=== PATIENT | female | born 1960 | race Caucasian/White ===

== ENCOUNTER 2017-04-07 16:11 | Outpatient (RCR) | payer MEDICAID, SELFPAY ==
[2017-04-07 17:25] LABS: International Normalized Ratio 2.7
== END 2017-04-07 16:30 | disposition home or self-care (01) ==
LOC: LAB 16:11
PROVIDERS: Family Provider Family Medicine; PCP Family Medicine; Visit Provider Family Medicine
DX: I82.90 Acute embolism and thrombosis of unspecified vein (principal); E78.00 Pure hypercholesterolemia, unspecified; Z79.899 Other long term (current) drug therapy
CPT/HCPCS: 36415; 85610

== ENCOUNTER 2017-05-26 09:01 | Outpatient (RCR) | payer MEDICAID, SELFPAY ==
[2017-05-26 09:44] LABS: Prothrombin Time (Protime)PT. 33.4 SECONDS (11.7-14.9)
[2017-05-26 09:57] LABS: International Normalized Ratio 3.5
[2017-05-31 03:06] LABS: Alternaria alternata <0.10 kU/L (Class 0); Aspergillus fumigatus <0.10 kU/L (Class 0); Bahia Grass <0.10 kU/L (Class 0); Bermuda Grass <0.10 kU/L (Class 0); Bluegrass, Kentucky <0.10 kU/L (Class 0); Cat Hair/Dander, Standard <0.10 kU/L (Class 0); Cedar, Mountain <0.10 kU/L (Class 0); Cladosporium herbarum <0.10 kU/L (Class 0); Cockroach, American <0.10 kU/L (Class 0); D farinae Mite 0.15 kU/L (Class 0/I); D pteronyssinus 0.53 kU/L (Class I); Dog Epithelia <0.10 kU/L (Class 0); Elm, American White <0.10 kU/L (Class 0); Hazelnut Tree <0.10 kU/L (Class 0); Hickory, White <0.10 kU/L (Class 0); Johnson Grass <0.10 kU/L (Class 0); Maple/Box Elder <0.10 kU/L (Class 0); Mucor racemosus <0.10 kU/L (Class 0); Mugwort <0.10 kU/L (Class 0); Mulberry, White <0.10 kU/L (Class 0); Oak, White <0.10 kU/L (Class 0); Penicillium chrysogen <0.10 kU/L (Class 0); Pigweed, Rough <0.10 kU/L (Class 0); Plantain, English <0.10 kU/L (Class 0); Ragweed, Short/Common <0.10 kU/L (Class 0); Sheep Sorrel(Dock) <0.10 kU/L (Class 0); Stemphylium herbarum <0.10 kU/L (Class 0); Sweet Gum <0.10 kU/L (Class 0); Sycamore, American <0.10 kU/L (Class 0)
[2017-05-31 08:51] LABS: Immunoglobulin E 53 IU/mL (0-100)
[2017-05-31 08:52] LABS: Nettle <0.10 kU/L (Class 0)
== END 2017-05-26 15:00 | disposition home or self-care (01) ==
LOC: LAB 09:01
PROVIDERS: Family Provider Family Medicine; PCP Family Medicine; Visit Provider Family Medicine
DX: I82.90 Acute embolism and thrombosis of unspecified vein (principal); J30.9 Allergic rhinitis, unspecified
CPT/HCPCS: 36415; 82785; 85610; 86003

== ENCOUNTER → 2017-06-18 07:55 | Outpatient (CLI) | payer MEDICAID, SELFPAY ==
--- NOTE | 2017-06-18 13:27 | PFT ---
INTRODUCTION: The patient is a 57-year-old female currently under the care of myself the presents for pulmonary function testing secondary to a diagnosis of shortness of breath. Respiratory therapy reports good patient effort reports no other concerns. Bronchodilators were used during testing. INTERPRETATION: Forced expiration spirometry demonstrates the presence of a moderately severe large airways obstructive ventilatory defect. There was no significant response to aerosolized bronchodilators, based off of strict ATS criteria. However, there was a rather brisk mid flow bronchodilator response. Spirogram from good quality and do not plateau indicating slow emptying of the lungs. Body plethysmography was performed and revealed a decreased TLC to 4.3 L, 75% of predicted, indicative of a mild restrictive ventilatory defect. The remainder of the lung volumes were symmetrically reduced. Diffusing capacity by single breath CO is moderately reduced at 53% of predicted. IMPRESSION: These pulmonary function studies demonstrate the presence of a moderately severe mixed ventilatory defect with an associated reduction in diffusing capacity. Although there was no significant bronchodilator response based upon strict ATS criteria, the patient did have a demonstrated brisk mid flow bronchodilator response.
== END ==
PROVIDERS: Family Provider Family Medicine; PCP Family Medicine; Visit Provider Internal Medicine Critical Care Medicine
DX: R06.02 Shortness of breath (principal); I82.90 Acute embolism and thrombosis of unspecified vein
CPT/HCPCS: 36415; 85610; 94060; 94726; 94729

== ENCOUNTER 2017-06-18 08:50 | Outpatient (RCR) | payer MEDICAID, SELFPAY ==
[2017-06-18 09:27] LABS: Prothrombin Time (Protime)PT. 31.1 SECONDS (11.7-14.9)
== END 2017-06-18 09:00 | disposition home or self-care (01) ==
LOC: LAB 08:50
PROVIDERS: Family Provider Family Medicine; PCP Family Medicine; Visit Provider Family Medicine
DX: I82.90 Acute embolism and thrombosis of unspecified vein (principal); J30.9 Allergic rhinitis, unspecified
CPT/HCPCS: 36415; 85610

== ENCOUNTER 2017-07-09 10:23 | Emergency (ER) | payer MEDICAID, SELFPAY ==
[2017-07-09 10:25] VITALS: BP 147/55; PULSE 72; RESP 20; TEMP 37.2; O2SAT 95; BMI 40.3
--- NOTE | 2017-07-09 10:44 | EKG12_ITS ---
Test Reason : SOB Blood Pressure : / mmHG Vent. Rate : 071 BPM Atrial Rate : 071 BPM P-R Int : 216 ms QRS Dur : 140 ms QT Int : 462 ms P-R-T Axes : 000 -40 137 degrees QTc Int : 502 ms Sinus rhythm with 1st degree A-V block Left axis deviation Left bundle branch block Abnormal ECG Confirmed by KATRINA ARREOLA, TENNILLE ([id number]), clinical editor BARBIE PERKINS ([id number]) on 07/13/2017 1:55:01 PM Referred By: Juwan Landry Confirmed By:TENNILLE HERNDON MD
--- NOTE | 2017-07-09 10:45 | RAD_ITS ---
STUDY: X-RAY CHEST REASON FOR EXAM: Female, 57 years old. Shortness of breath. Productive cough. TECHNIQUE: PA and lateral views of the chest. COMPARISON: Comparison is made with prior study dated September 11, 2016. FINDINGS: EKG electrodes are seen. There is evidence of vascular congestion and mild CHF. Blunting of both costophrenic angles posteriorly. Sternal cerclage wires are present from a prior sternotomy. The patient is status post aortic valve replacement. Cardiac megaly. Normal mediastinum and pauline. Normal visualized pulmonary arteries. There is atherosclerotic calcification of the aortic arch with tortuosity. There are diffuse degenerative changes of the visualized thoracic spine. Normal visualized ribs, clavicles, and shoulders. There is no demonstrated abnormality of the visualized soft tissue structures of the upper abdomen. RAD/Chest PA and Lateral IMPRESSION: Status post aortic valve replacement. CHF. Electronically Signed: Luis Boogie MD at 12:08 EDT Tel [phone], Service support ,
[2017-07-09] MEDS: Albuterol 2.5 MG/3 ML VIAL.NEB. INHALATION (11:02)
[2017-07-09 11:03] VITALS: PULSE 76; RESP 20; O2SAT 98
[2017-07-09 11:13] LABS: Absolute Lymphocyte Count 1.13 X10^3/ul (0.83-4.51); Absolute Neutrophil Count 6.7 X10^3/uL (2.0-7.7); Basophil# 0.02 X10^3/uL; Basophil% 0.2 % (0-1); Eosinophil# 0.11 X10^3/uL; Eosinophils% 1.3 % (0-5); Hematocrit 37.2 % (37-47); Hemoglobin 11.8 g/dl (12.0-15.0); Lymphocyte # 1.13 X10^3/ul (4.0); Mean Corp Hgb Conc 31.7 g/gl (32-36); Mean Corpuscular Hgb 29.7 pg (27.0-32.0); Mean Corpuscular Volume 93.7 fL (81-99); Mean Platelet Vol. 9.3 fl (6.2-12.0); Monocyte# 0.75 X10^3/uL; Monocyte% 8.6 % (0-10); Neutrophil # 6.65 X10^3/uL (2.7-7.7); Neutrophil % 76.7 % (47-70); POSITIVE COUNT NO; POSITIVE DIFFERENTIAL NO; POSITIVE MORPHOLOGY NO; Platelet Count 181 K/mm3 (150-450); RBC Distribution Width CV 14.7 % (11.6-14.6); RBC Distribution Width SD 50.2 fl (35.1-43.9); Red Blood Count 3.97 M/mm3 (4.2-5.4); White Blood Count 8.7 K/mm3 (4.4-11.0)
[2017-07-09 11:19] LABS: Prothrombin Time (Protime)PT. 36.4 SECONDS (11.7-14.9)
[2017-07-09 11:20] LABS: International Normalized Ratio 3.6
--- NOTE | 2017-07-09 11:21 | ED.RN ---
DR BARCLAY NOTIFIED OF INR RESULTS
[2017-07-09 11:27] LABS: Anion Gap 7 (5-15); BUN 16 mg/dL (7-18); BUN/Creat Ratio 22.2 RATIO (10-20); Calcium,Total 8.1 mg/dL (8.5-10.1); Chloride 106 mmol/L (98-107); Creatinine, Serum 0.72 mg/dL (0.55-1.02); EST Glomerular Filtration Rate 89 mL/min (>60); Est Glom Filt Rate - Afr Amer 108 mL/min (>60); Estimated Creatinine Clearance 89.06 ml/min; Glucose 111 mg/dL (74-106); Sodium Level 141 mmol/L (136-145)
[2017-07-09 11:36] LABS: BNP,B-Type NATRIURETIC PEPTIDE 373.9 pg/mL (0-100)
[2017-07-09 12:34] VITALS: BP 138/58; PULSE 73; RESP 24; O2SAT 94
--- NOTE | 2017-07-09 13:15 | ED.VISSUMM ---
- ER Visit Summary Date of Service: 07/09/17 Chief Complaint: [] Shortness of breath History of Present Illness: The patient is a 57 F [] complaining of mild shortness of breath worsening over the last 3 weeks with an exacerbation over the last 24-48 hours. She reports he recently finished the 8 day course of antibiotics 5 days ago. She reports she is using her inhaler every 4 hours at home without significant relief. Reports subjective fevers. Reports nonproductive cough. No other complaints at this time. Physical Examination: [] Afebrile, vital signs stable. 57-year-old female no acute distress. Cardiovascular exam is regular rate and rhythm. Lungs are clear to auscultation without wheezing or rhonchi or rales. Abdomen is obese, soft, nontender. There is no significant lower extremity edema. Remainder of exam is unremarkable. Test Results: [] CBC, BMP within normal limits. INR is 3.6 which is normal for the patient with a mechanical valve. Opponent is negative at less than 0.02. BNP is 373. Chest x-ray is read as mild CHF. EKG shows normal sinus rhythm rate of 71 with a first-degree heart block and left bundle branch block unchanged from previous EKG. Emergency Department Course and Treatment: [] Patient was given albuterol aerosol upon arrival. On serial exam she reportedly felt improvement. She was given a dose of prednisone after her diagnostic and laboratory workup was completed. She appears to be more of a bronchitis picture than a CHF exacerbation. She was encouraged to continue using her albuterol inhaler at home. She was given a short-term prescription for prednisone for 5 days. She was encouraged to follow-up with her primary care physician and return if symptoms worsen. Treatment Plan: [] See above. Disposition: [] Discharge, stable. Impression: [] Dyspnea Bronchitis History of heart valve repair This note was generated with [employer] dictation software. It may contain incorrect words, spelling, and punctuation that were not noted in review of the chart prior to signing ED Disposition - Plan for ED Patient: Chief Complaint: Shortness of Breath Referrals: Juwan Landry DO [Primary Care Provider] -
--- NOTE | 2017-07-09 13:20 | ED.DEP ---
ED Disposition - Plan for ED Patient: Disposition: Home or Assisted Living Chief Complaint: Shortness of Breath Instructions: ED Upper Resp Infec No Abx Tx Prescriptions: Azithromycin [Zithromax Tri-Michele] 500 mg PO DAILY #5 box Prednisone [Deltasone] 40 mg PO DAILY #5 tab Referrals: Juwan Landry DO [Primary Care Provider] -
[2017-07-09] MEDS: predniSONE 20 MG Tablet 60 MG PO (13:41)
[2017-07-09 13:42] VITALS: BP 132/59; PULSE 76; RESP 26; O2SAT 93
== END 2017-07-09 13:43 | disposition home or self-care (01) ==
PROVIDERS: Emergency Provider Emergency Medicine; Family Provider Family Medicine; PCP Family Medicine
DX: J40 Bronchitis, not specified as acute or chronic (principal); R06.00 Dyspnea, unspecified; Z95.2 Presence of prosthetic heart valve; I44.7 Left bundle-branch block, unspecified; I44.0 Atrioventricular block, first degree; E66.9 Obesity, unspecified; I11.0 Hypertensive heart disease with heart failure; I50.9 Heart failure, unspecified; E78.00 Pure hypercholesterolemia, unspecified; I35.0 Nonrheumatic aortic (valve) stenosis; Z79.82 Long term (current) use of aspirin; Z79.01 Long term (current) use of anticoagulants; Z79.899 Other long term (current) drug therapy
CPT/HCPCS: 71046; 80048; 83880; 84484; 85025; 85610; 93005; 94640; 99285; A4216

== ENCOUNTER 2017-07-22 09:03 | Outpatient (RCR) | payer MEDICAID, SELFPAY ==
[2017-07-22 09:59] LABS: International Normalized Ratio 2.3; Prothrombin Time (Protime)PT. 25.8 SECONDS (11.7-14.9)
[2017-07-28 04:09] LABS: Alternaria alternata <0.10 kU/L (Class 0); Aspergillus fumigatus <0.10 kU/L (Class 0); Bahia Grass <0.10 kU/L (Class 0); Bermuda Grass <0.10 kU/L (Class 0); Bluegrass, Kentucky <0.10 kU/L (Class 0); Cat Hair/Dander, Standard <0.10 kU/L (Class 0); Cedar, Mountain <0.10 kU/L (Class 0); Cladosporium herbarum <0.10 kU/L (Class 0); Cockroach, American <0.10 kU/L (Class 0); D farinae Mite <0.10 kU/L (Class 0); D pteronyssinus 0.41 kU/L (Class I); Dog Epithelia <0.10 kU/L (Class 0); Elm, American White <0.10 kU/L (Class 0); Hazelnut Tree <0.10 kU/L (Class 0); Hickory, White <0.10 kU/L (Class 0); Johnson Grass <0.10 kU/L (Class 0); Maple/Box Elder <0.10 kU/L (Class 0); Mucor racemosus <0.10 kU/L (Class 0); Mugwort <0.10 kU/L (Class 0); Mulberry, White <0.10 kU/L (Class 0); Oak, White <0.10 kU/L (Class 0); Penicillium chrysogen <0.10 kU/L (Class 0); Pigweed, Rough <0.10 kU/L (Class 0); Plantain, English <0.10 kU/L (Class 0); Ragweed, Short/Common <0.10 kU/L (Class 0); Sheep Sorrel(Dock) <0.10 kU/L (Class 0); Stemphylium herbarum <0.10 kU/L (Class 0); Sweet Gum <0.10 kU/L (Class 0); Sycamore, American <0.10 kU/L (Class 0)
[2017-07-28 10:55] LABS: Nettle <0.10 kU/L (Class 0)
[2017-07-29 11:13] LABS: Immunoglobulin E 51 IU/mL (0-100)
== END 2017-07-22 10:00 | disposition home or self-care (01) ==
LOC: LAB 09:03
PROVIDERS: Internal Medicine Critical Care Medicine; Family Provider Family Medicine; PCP Family Medicine; Visit Provider Family Medicine
DX: I82.90 Acute embolism and thrombosis of unspecified vein (principal); J30.9 Allergic rhinitis, unspecified
CPT/HCPCS: 36415; 82785; 85610; 86003

== ENCOUNTER 2017-08-11 09:22 | Outpatient (RCR) | payer MEDICAID, SELFPAY ==
[2017-08-11 10:43] LABS: International Normalized Ratio 1.9
== END 2017-08-11 10:00 | disposition home or self-care (01) ==
LOC: LAB 09:22
PROVIDERS: Family Provider Family Medicine; PCP Family Medicine; Visit Provider Family Medicine
DX: Z95.2 Presence of prosthetic heart valve (principal); I82.90 Acute embolism and thrombosis of unspecified vein
CPT/HCPCS: 36415; 85610

== ENCOUNTER 2017-09-16 09:44 | Outpatient (RCR) | payer MEDICAID, SELFPAY ==
[2017-09-16 10:38] LABS: AST(SGOT) 21 U/L (15-37); Alanine Aminotransfer ALT/SGPT 28 U/L (13-56); Albumin, Serum 3.5 g/dL (3.2-5.0); Alkaline Phosphatase 46 U/L (45-117); Bilirubin, Direct 0.13 mg/dL (0.00-0.30); Cholesterol 183 mg/dL (200); Globulin 3.9 g/dL (2.2-4.2); High Density Lipoprotein 31 mg/dL; Protein, Total 7.4 g/dL (6.4-8.2); Triglycerides 288 mg/dL; Very Low Density Lipoprotein 58 mg/dL (5-40)
[2017-09-16 10:54] LABS: International Normalized Ratio 2.2; Prothrombin Time (Protime)PT. 24.4 SECONDS (11.7-14.9)
== END 2017-09-16 11:00 | disposition home or self-care (01) ==
LOC: LAB 09:44
PROVIDERS: Internal Medicine Cardiovascular Disease; Family Provider Family Medicine; PCP Family Medicine; Visit Provider Family Medicine
DX: Z95.2 Presence of prosthetic heart valve (principal); I82.90 Acute embolism and thrombosis of unspecified vein
CPT/HCPCS: 36415; 80061; 80076; 85610

== ENCOUNTER 2017-10-06 12:11 | Outpatient (RCR) | payer MEDICAID, SELFPAY ==
[2017-10-06 12:43] LABS: International Normalized Ratio 2.3; Prothrombin Time (Protime)PT. 25.3 SECONDS (11.7-14.9)
== END 2017-10-06 14:00 | disposition home or self-care (01) ==
LOC: LAB 12:11
PROVIDERS: Family Provider Family Medicine; PCP Family Medicine; Visit Provider Family Medicine
DX: Z95.2 Presence of prosthetic heart valve (principal); I82.90 Acute embolism and thrombosis of unspecified vein
CPT/HCPCS: 36415; 85610

== ENCOUNTER 2017-12-29 08:28 | Outpatient (RCR) | payer MEDICAID, SELFPAY ==
[2017-12-29 08:54] LABS: International Normalized Ratio 2.3; Prothrombin Time (Protime)PT. 25.5 SECONDS (11.7-14.9)
== END 2017-12-29 10:00 | disposition home or self-care (01) ==
LOC: LAB 08:28
PROVIDERS: Family Provider Family Medicine; PCP Family Medicine; Visit Provider Family Medicine
DX: Z95.2 Presence of prosthetic heart valve (principal)
CPT/HCPCS: 36415; 85610

== ENCOUNTER 2018-01-19 08:40 | Outpatient (RCR) | payer MEDICAID, SELFPAY ==
[2018-01-19 09:39] LABS: International Normalized Ratio 1.7; Prothrombin Time (Protime)PT. 20.2 SECONDS (11.7-14.9)
== END 2018-01-19 10:00 | disposition home or self-care (01) ==
LOC: LAB 08:40
PROVIDERS: Family Provider Family Medicine; PCP Family Medicine; Referring Provider Family Medicine; Visit Provider Family Medicine
DX: Z95.2 Presence of prosthetic heart valve (principal)
CPT/HCPCS: 36415; 85610

== ENCOUNTER → 2018-02-15 12:53 | Outpatient (CLI) | payer MEDICAID, SELFPAY ==
--- NOTE | 2018-02-15 12:54 | ECHOCS_ITS ---
Reason For Study: Fatigue, MVR, AVR, Hx endocarditis Procedure This was a 2D Doppler, Color Flow transthoracic echocardiogram. The study was technically difficult. Due to body habitus. Contrast injection was performed. Exam performed in department. Left Ventricle Normal LV size. Moderate concentric left ventricular hypertrophy. The estimated ejection fraction is 65 %. Left ventricular systolic function is normal. No regional wall motion abnormalities noted. Right Ventricle Normal RV size. Normal systolic function. Atria The left atrium is mildly enlarged. Normal right atrium. Mitral Valve Stable appearing mechanical mitral valve apparatus. Tricuspid Valve Normal tricuspid valve. Mild (1+) tricuspid valve insufficiency. Pulmonary artery systolic pressure is 42 mmHg. Mild pulmonary hypertension. Aortic Valve Mild (1+) eccentric aortic valve insufficiency. Stable appearing bioprosthetic aortic valve apparatus. Pulmonic Valve Normal pulmonic valve. Great Vessels Normal aortic root. The pulmonary artery is normal size. Normal inferior vena cava. Pericardium/Pleural No pericardial effusion. MMode/2D Measurements & Calculations LVIDd: 4.9 cm IVSd: 1.6 cm Ao root diam: 3.2 cm LVIDs: 3.4 cm LVPWd: 1.5 cm RVDd: 3.0 cm FS: 31.4 % LAV(MOD-bp): 87.1 ml LA A4 area: 25.0 cm2 RA A4 area: 14.8 cm2 LAV(MOD-bp) Indexed: 36.7 ml/m2 LAV(MOD-sp2): 86.3 ml LAV(MOD-sp4): 84.7 ml Doppler Measurements & Calculations MV E max ej: 165.0 cm/sec Lat Peak E' Ej: 9.2 cm/sec Med Peak E' Ej: 5.5 cm/sec MV A max ej: 137.2 cm/sec E/E' lat: 17.9 E/E' med: 30.1 MV E/A: 1.2 MV V2 max: 211.3 cm/sec MV P1/2t max ej: 204.7 cm/sec Ao V2 max: 433.6 cm/sec MV max P.9 mmHg MV P1/2t: 74.0 msec Ao max P.2 mmHg MV V2 mean: 139.0 cm/sec MV dec slope: 810.7 cm/sec2 Ao V2 mean: 315.9 cm/sec MV mean P.6 mmHg MVA(P1/2t): 3.0 cm2 Ao mean P.8 mmHg MV V2 VTI: 54.9 cm Ao V2 VTI: 98.9 cm PA V2 max: 156.0 cm/sec TR max ej: 304.2 cm/sec TR max P.0 mmHg Interpretation Summary Normal LV size. Moderate concentric left ventricular hypertrophy. The estimated ejection fraction is 65 %. Left ventricular systolic function is normal. Stable appearing mechanical mitral valve apparatus. Mild (1+) tricuspid valve insufficiency. Pulmonary artery systolic pressure is 42 mmHg. Mild pulmonary hypertension. Contrast injection was performed. Ordering Physician: Fatmata Price Referring Physician: Juwan Landry Performed By: Camryn Sanchez RDCS, RVT
== END ==
PROVIDERS: Family Provider Family Medicine; PCP Family Medicine; Referring Provider Physician Assistant Medical; Visit Provider Physician Assistant Medical
DX: R53.83 Other fatigue (principal); Z95.2 Presence of prosthetic heart valve; Q23.0 Congenital stenosis of aortic valve; E78.5 Hyperlipidemia, unspecified; I10 Essential (primary) hypertension; Z86.79 Personal history of other diseases of the circulatory system
CPT/HCPCS: 93306; Q9957; A4216; C8929

== ENCOUNTER 2018-02-23 11:57 | Outpatient (RCR) | payer MEDICAID, SELFPAY ==
--- NOTE | 2018-02-08 12:55 | RAD_ITS ---
STUDY: X-RAY CHEST REASON FOR EXAM: Female, 57 years old. Shortness of breath and dyspnea TECHNIQUE: PA and lateral views of the chest. COMPARISON: 07/09/2017 FINDINGS: The lungs are clear and expanded. There is no demonstrated pleural abnormality. Sternal cerclage wires are present from a prior sternotomy. Mild cardiomegaly. Stable artificial heart valve. Normal mediastinum and pauline. Normal visualized pulmonary arteries. Normal visualized aortic arch and descending thoracic aorta. Normal visualized thoracic spine. Normal visualized ribs, clavicles, and shoulders. There is no demonstrated abnormality of the visualized soft tissue structures of the upper abdomen. RAD/Chest PA and Lateral IMPRESSION: No acute cardiopulmonary disease. Electronically Signed: Oracio Echols DO at 7:07 EST Tel , Service support ,
[2018-02-08 13:38] LABS: Absolute Lymphocyte Count 1.73 X10^3/ul (0.83-4.51); Absolute Neutrophil Count 3.2 X10^3/uL (2.0-7.7); Basophil# 0.02 X10^3/uL; Basophil% 0.4 % (0-1); Eosinophil# 0.14 X10^3/uL; Eosinophils% 2.5 % (0-5); Hematocrit 42.5 % (37-47); Lymphocyte # 1.73 X10^3/ul (4.0); Lymphocyte % 30.3 % (19-41); Mean Corp Hgb Conc 32.9 g/gl (32-36); Mean Corpuscular Hgb 31.3 pg (27.0-32.0); Mean Corpuscular Volume 94.9 fL (81-99); Monocyte% 10.5 % (0-10); Neutrophil % 55.9 % (47-70); Platelet Count 219 K/mm3 (150-450); RBC Distribution Width CV 14.1 % (11.6-14.6); RBC Distribution Width SD 47.2 fl (35.1-43.9); Red Blood Count 4.48 M/mm3 (4.2-5.4); White Blood Count 5.7 K/mm3 (4.4-11.0)
[2018-02-08 13:42] LABS: POSITIVE COUNT NO; POSITIVE DIFFERENTIAL NO; POSITIVE MORPHOLOGY NO
[2018-02-08 13:46] LABS: International Normalized Ratio 3.4; Prothrombin Time (Protime)PT. 34.2 SECONDS (11.7-14.9)
[2018-02-08 14:08] LABS: BNP,B-Type NATRIURETIC PEPTIDE 90.6 pg/mL (0-100)
[2018-02-08 14:11] LABS: AST(SGOT) 28 U/L (15-37); Alanine Aminotransfer ALT/SGPT 40 U/L (13-56); Albumin, Serum 3.6 g/dL (3.2-5.0); Alkaline Phosphatase 49 U/L (45-117); Anion Gap 9 (5-15); BUN 19 mg/dL (7-18); BUN/Creat Ratio 26.6 RATIO (10-20); Bilirubin, Direct 0.16 mg/dL (0.00-0.30); Calcium,Total 8.3 mg/dL (8.5-10.1); Chloride 98 mmol/L (98-107); Creatinine, Serum 0.71 mg/dL (0.55-1.02); EST Glomerular Filtration Rate 90 mL/min (>60); Est Glom Filt Rate - Afr Amer 109 mL/min (>60); Globulin 4.2 g/dL (2.2-4.2); Glucose 101 mg/dL (74-106); Potassium 3.7 mmol/L (3.5-5.1); Protein, Total 7.8 g/dL (6.4-8.2); Sodium Level 140 mmol/L (136-145); Thyroid Stim Hormone (TSH) 1.26 uIU/mL (0.358-3.74)
[2018-02-11 12:21] LABS: Vitamin D 1,25-Dihydroxy 41.6 pg/mL (19.9-79.3)
[2018-02-23 16:02] LABS: International Normalized Ratio 3.6
== END 2018-03-05 12:43 | disposition home or self-care (01) ==
LOC: LAB 11:57
PROVIDERS: Physician Assistant Medical; Family Provider Family Medicine; PCP Family Medicine; Referring Provider Family Medicine; Visit Provider Family Medicine
DX: Q23.0 Congenital stenosis of aortic valve (principal); R53.83 Other fatigue; E78.5 Hyperlipidemia, unspecified; I10 Essential (primary) hypertension; Z95.2 Presence of prosthetic heart valve; Z86.79 Personal history of other diseases of the circulatory system
CPT/HCPCS: 36415; 71046; 80048; 80076; 82652; 83880; 84443; 85025; 85610

== ENCOUNTER 2018-06-01 11:12 | Outpatient (RCR) | payer MEDICAID, SELFPAY ==
[2018-02-08 11:01] VITALS: BMI 43.2
[2018-06-01 12:42] LABS: International Normalized Ratio 2.3; Prothrombin Time (Protime)PT. 25.2 SECONDS (11.7-14.9)
== END 2018-06-03 11:20 | disposition home or self-care (01) ==
LOC: LAB 11:12
PROVIDERS: Family Provider Family Medicine; PCP Family Medicine; Referring Provider Family Medicine; Visit Provider Family Medicine
DX: Z95.2 Presence of prosthetic heart valve (principal)
CPT/HCPCS: 36415; 85610

== ENCOUNTER 2018-07-12 08:37 | Outpatient (RCR) | payer MEDICAID, SELFPAY ==
[2018-02-08 11:01] VITALS: BMI 43.2
[2018-07-12 09:51] LABS: Prothrombin Time (Protime)PT. 31.4 SECONDS (11.7-14.9)
== END 2018-08-04 13:49 | disposition home or self-care (01) ==
LOC: LAB 08:37
PROVIDERS: Family Provider Family Medicine; PCP Family Medicine; Referring Provider Family Medicine; Visit Provider Family Medicine
DX: Z79.01 Long term (current) use of anticoagulants (principal)
CPT/HCPCS: 36415; 85610

== ENCOUNTER 2018-08-12 09:13 | Outpatient (RCR) | payer MEDICAID, SELFPAY ==
[2018-07-20 15:18] VITALS: BMI 42.4
[2018-08-12 10:21] LABS: International Normalized Ratio 3.3; Prothrombin Time (Protime)PT. 33.8 SECONDS (11.7-14.9)
== END 2018-08-12 10:00 | disposition home or self-care (01) ==
LOC: LAB 09:13
PROVIDERS: Family Provider Family Medicine; PCP Family Medicine; Referring Provider Family Medicine; Visit Provider Family Medicine
DX: Z79.01 Long term (current) use of anticoagulants (principal)
CPT/HCPCS: 36415; 85610

== ENCOUNTER → 2018-08-12 | Outpatient (CLI) | payer MEDICAID, SELFPAY ==
[2018-07-20 15:18] VITALS: BMI 42.4
--- NOTE | 2018-08-12 09:23 | US_ITS ---
STUDY: ABDOMINAL ULTRASOUND - RIGHT UPPER QUADRANT REASON FOR VISIT: Female, 58 years old. Right upper quadrant pain TECHNIQUE: Ultrasound evaluation of the right upper quadrant was performed with real-time and static shea-scale imaging. TECHNICAL QUALITY: Adequate. COMPARISON: None. FINDINGS: Liver: The liver measures 20 cm. There is increased echogenicity consistent with fatty infiltration. The bile ducts are within normal limits. There is hepatic color flow. The direction of portal flow is hepatopetal. There is no demonstrated mass lesion. Gallbladder: Normal distended gallbladder. The gallbladder wall measures 2.3 mm. There is a negative sonographic Grande's sign. There is no pericholecystic fluid. There are no gallstones. Common Bile Duct (C.B.D.): The common bile duct measures 3.9 mm. Pancreas: Normal size of the head, body and tail of the pancreas. There is normal echogenicity of the pancreas. There is no demonstrated pancreatic mass or cyst. Right Kidney: Normal size of the right kidney. The right kidney measures 12.4 cm. Normal renal cortex. The right cortex measures 1.3 cm. There is no demonstrated renal mass or cyst. There is no right hydronephrosis. US/Abdomen Limited IMPRESSION: Hepatomegaly and hepatic steatosis. Remainder is within normal limits Electronically Signed: Oracio Echols DO at 12:01 EDT Tel , Service support ,
== END | disposition home or self-care (01) ==
LOC: US 09:22
PROVIDERS: Family Provider Family Medicine; PCP Family Medicine; Referring Provider Nurse Practitioner Primary Care; Visit Provider Nurse Practitioner Primary Care
DX: R10.11 Right upper quadrant pain (principal); Z79.01 Long term (current) use of anticoagulants
CPT/HCPCS: 36415; 76705; 85610

== ENCOUNTER 2018-09-11 07:22 | Outpatient (RCR) | payer MEDICAID, SELFPAY ==
[2018-07-20 15:18] VITALS: BMI 42.4
[2018-09-11 09:09] LABS: International Normalized Ratio 2.5; Prothrombin Time (Protime)PT. 27.4 SECONDS (11.7-14.9)
== END 2018-10-03 12:00 | disposition home or self-care (01) ==
LOC: LAB 07:22
PROVIDERS: Family Provider Family Medicine; PCP Family Medicine; Referring Provider Family Medicine; Visit Provider Family Medicine
DX: Z79.01 Long term (current) use of anticoagulants (principal)
CPT/HCPCS: 36415; 85610

== ENCOUNTER 2018-10-19 09:20 | Outpatient (RCR) | payer MEDICAID, SELFPAY ==
[2018-07-20 15:18] VITALS: BMI 42.4
[2018-10-19 10:24] LABS: International Normalized Ratio 2.7
== END 2018-11-03 17:27 | disposition home or self-care (01) ==
LOC: LAB 09:20
PROVIDERS: Family Provider Family Medicine; PCP Family Medicine; Referring Provider Family Medicine; Visit Provider Family Medicine
DX: Z79.01 Long term (current) use of anticoagulants (principal)
CPT/HCPCS: 36415; 85610

== ENCOUNTER 2019-02-01 16:11 | Outpatient (RCR) | payer MEDICAID, SELFPAY ==
[2019-02-01 12:26] VITALS: BMI 41.8
[2019-02-01 17:16] LABS: International Normalized Ratio 2.6; Prothrombin Time (Protime)PT. 27.6 SECONDS (11.7-14.9)
== END 2019-02-01 18:00 | disposition home or self-care (01) ==
LOC: LAB 16:11
PROVIDERS: Family Provider Nurse Practitioner Family; PCP Nurse Practitioner Family; Referring Provider Internal Medicine Cardiovascular Disease; Visit Provider Internal Medicine Cardiovascular Disease
DX: Z79.01 Long term (current) use of anticoagulants (principal); I35.2 Nonrheumatic aortic (valve) stenosis with insufficiency; I34.0 Nonrheumatic mitral (valve) insufficiency; Z95.2 Presence of prosthetic heart valve
CPT/HCPCS: 36415; 85610

== ENCOUNTER → 2019-02-23 07:55 | Outpatient (CLI) | payer MEDICAID, SELFPAY ==
[2019-02-01 12:26] VITALS: BMI 41.8
--- NOTE | 2019-02-23 07:57 | ECHOCS_ITS ---
Reason For Study: VALVE REPLACEMENT - EVAL Procedure This was a 2D Doppler, Color Flow transthoracic echocardiogram. The study was technically difficult. Due to body habitus. Contrast injection was performed. Exam performed in department. Left Ventricle Normal LV size. Moderate concentric left ventricular hypertrophy. Left ventricular systolic function is normal. The estimated ejection fraction is 65 %. Stage 2 diastolic dysfunction. No regional wall motion abnormalities noted. Atria The left atrium is mildly enlarged. Normal right atrium. Mitral Valve Peak transmitral valve gradient 16 mmHg. Stable appearing mechanical mitral valve apparatus. Tricuspid Valve Normal tricuspid valve. Aortic Valve Peak aortic valve gradient 54 mmHg. Mean aortic valve gradient 29 mmHg. Stable appearing mechanical aortic valve apparatus. Pulmonic Valve Normal pulmonic valve. Great Vessels Normal aortic root. The pulmonary artery is normal size. Normal inferior vena cava. Pericardium/Pleural No pericardial effusion. Medication 22 gauge I.V. with prn adaptor inserted into right arm. Diluted definity 3.0ml given slow IV push to enhance endocardial definition. MMode/2D Measurements & Calculations LVIDd: 5.2 cm IVSd: 1.6 cm Ao root diam: 2.6 cm LVIDs: 3.2 cm LVPWd: 1.2 cm RVDd: 3.4 cm FS: 38.1 % LAV(MOD-bp): 97.4 ml LA A4 area: 24.9 cm2 LA dimension(2D): 5.1 cm LAV(MOD-bp) Indexed: 42.1 ml/m2 LAV(MOD-sp2): 91.1 ml LAV(MOD-sp4): 91.7 ml RA A4 area: 20.9 cm2 Doppler Measurements & Calculations MV E max ej: 160.3 cm/sec Lat Peak E' Ej: 5.3 cm/sec Med Peak E' Ej: 4.6 cm/sec MV A max ej: 135.0 cm/sec E/E' lat: 30.3 E/E' med: 35.0 MV E/A: 1.2 MV V2 max: 198.7 cm/sec Ao V2 max: 367.1 cm/sec LV V1 max: 152.4 cm/sec MV max P.8 mmHg Ao max P.0 mmHg LV V1 max P.3 mmHg MV V2 mean: 136.7 cm/sec Ao V2 mean: 257.3 cm/sec LV V1 mean P.0 mmHg MV mean P.3 mmHg Ao mean P.5 mmHg LV V1 mean: 106.2 cm/sec MV V2 VTI: 49.5 cm Ao V2 VTI: 75.0 cm LV V1 VTI: 33.2 cm PA V2 max: 152.2 cm/sec Interpretation Summary Normal LV size. Left ventricular systolic function is normal. The estimated ejection fraction is 65 %. Moderate concentric left ventricular hypertrophy. Stage 2 diastolic dysfunction. Stable appearing mechanical mitral valve apparatus. Stable appearing mechanical aortic valve apparatus. Compared to the previous the fuction and valve parameters appear to be stable Contrast injection was performed. Ordering Physician: Dick Whelan Referring Physician: Pepper Davis Performed By: Camryn Sanchez RDCS, RVT
== END ==
PROVIDERS: Family Provider Nurse Practitioner Family; PCP Nurse Practitioner Family; Referring Provider Internal Medicine Cardiovascular Disease; Visit Provider Internal Medicine Cardiovascular Disease
DX: Z95.2 Presence of prosthetic heart valve (principal)
CPT/HCPCS: 93306; Q9957; C8929

== ENCOUNTER 2019-03-01 07:38 | Outpatient (RCR) | payer MEDICAID, SELFPAY ==
[2019-02-15 10:40] LABS: International Normalized Ratio 2.1; Prothrombin Time (Protime)PT. 23.6 SECONDS (11.7-14.9)
[2019-02-22 16:47] LABS: International Normalized Ratio 2.2; Prothrombin Time (Protime)PT. 24.1 SECONDS (11.7-14.9)
[2019-03-01 08:53] LABS: International Normalized Ratio 2.7; Prothrombin Time (Protime)PT. 29.1 SECONDS (11.7-14.9)
== END 2019-03-01 18:00 | disposition home or self-care (01) ==
LOC: LAB 07:38
PROVIDERS: Family Provider Nurse Practitioner Family; PCP Nurse Practitioner Family; Referring Provider Internal Medicine Cardiovascular Disease; Visit Provider Internal Medicine Cardiovascular Disease
DX: Z79.01 Long term (current) use of anticoagulants (principal); I35.2 Nonrheumatic aortic (valve) stenosis with insufficiency; I34.0 Nonrheumatic mitral (valve) insufficiency; Z95.2 Presence of prosthetic heart valve
CPT/HCPCS: 36415; 85610

== ENCOUNTER 2019-04-05 07:50 | Outpatient (RCR) | payer MEDICAID, SELFPAY ==
[2019-03-17 10:10] LABS: International Normalized Ratio 3.2; Prothrombin Time (Protime)PT. 33.3 SECONDS (11.7-14.9)
[2019-04-05 09:32] LABS: International Normalized Ratio 2.7
== END 2019-04-05 18:00 | disposition home or self-care (01) ==
LOC: LAB 07:50
PROVIDERS: Family Provider Nurse Practitioner Family; PCP Nurse Practitioner Family; Referring Provider Internal Medicine Cardiovascular Disease; Visit Provider Internal Medicine Cardiovascular Disease
DX: I35.2 Nonrheumatic aortic (valve) stenosis with insufficiency (principal); I34.0 Nonrheumatic mitral (valve) insufficiency; Z79.01 Long term (current) use of anticoagulants; Z95.2 Presence of prosthetic heart valve
CPT/HCPCS: 36415; 85610

== ENCOUNTER 2019-04-26 08:13 | Outpatient (RCR) | payer MEDICAID, SELFPAY ==
[2019-04-26 08:55] LABS: International Normalized Ratio 3.4; Prothrombin Time (Protime)PT. 34.3 SECONDS (11.7-14.9)
== END 2019-04-26 18:00 | disposition home or self-care (01) ==
LOC: LAB 08:13
PROVIDERS: Family Provider Nurse Practitioner Family; Referring Provider Internal Medicine Cardiovascular Disease; Visit Provider Internal Medicine Cardiovascular Disease
DX: I35.2 Nonrheumatic aortic (valve) stenosis with insufficiency (principal); I34.0 Nonrheumatic mitral (valve) insufficiency; Z79.01 Long term (current) use of anticoagulants; Z95.2 Presence of prosthetic heart valve
CPT/HCPCS: 36415; 85610

== ENCOUNTER 2019-05-17 11:59 | Outpatient (RCR) | payer MEDICAID, SELFPAY ==
[2019-05-17 13:54] LABS: International Normalized Ratio 2.8; Prothrombin Time (Protime)PT. 29.2 SECONDS (11.7-14.9)
== END 2019-05-17 18:00 | disposition home or self-care (01) ==
LOC: LAB 11:59
PROVIDERS: Family Provider Nurse Practitioner Family; Referring Provider Internal Medicine Cardiovascular Disease; Visit Provider Internal Medicine Cardiovascular Disease
DX: I35.2 Nonrheumatic aortic (valve) stenosis with insufficiency (principal); I34.0 Nonrheumatic mitral (valve) insufficiency; Z79.01 Long term (current) use of anticoagulants; Z95.2 Presence of prosthetic heart valve
CPT/HCPCS: 36415; 85610

== ENCOUNTER → 2019-05-18 07:14 | Outpatient (CLI) | payer MEDICAID, SELFPAY ==
[2019-05-18 08:01] LABS: Absolute Lymphocyte Count 2.09 X10^3/uL (0.83-4.51); Absolute Neutrophil Count 2.8 X10^3/uL (2.0-7.7); Basophil# 0.02 X10^3/uL; Basophil% 0.4 % (0-1); Eosinophil# 0.17 X10^3/uL; Hematocrit 41.9 % (37-47); Hemoglobin 13.9 g/dL (12.0-15.0); Lymphocyte # 2.09 X10^3/ul (4.0); Lymphocyte % 37.1 % (19-41); Mean Corp Hgb Conc 33.2 g/dL (32-36); Mean Corpuscular Volume 93.3 fL (81-99); Mean Platelet Vol. 10.6 fl (6.2-12.0); Monocyte# 0.53 X10^3/uL; Monocyte% 9.4 % (0-10); NRBC Flagged by Analyzer 0 % (0-5); Neutrophil % 49.7 % (47-70); Platelet Count 249 K/mm3 (150-450); RBC Distribution Width CV 13.2 % (11.6-14.6); RBC Distribution Width SD 45.1 fl (35.1-43.9); Red Blood Count 4.49 M/mm3 (4.2-5.4); White Blood Count 5.6 K/mm3 (4.4-11.0)
[2019-05-18 08:23] LABS: ALB/GLOB Ratio 0.7 RATIO (0.9-2.4); AST(SGOT) 38 U/L (15-37); Alanine Aminotransfer ALT/SGPT 50 U/L (13-56); Albumin, Serum 3.4 g/dL (3.2-5.0); Alkaline Phosphatase 55 U/L (45-117); Anion Gap 6 (5-15); BUN 17 mg/dL (7-18); BUN/Creat Ratio 20.9 RATIO (10-20); Calcium,Total 8.6 mg/dL (8.5-10.1); Chloride 100 mmol/L (98-107); Cholesterol 227 mg/dL (200); Creatinine, Serum 0.81 mg/dL (0.55-1.02); EST Glomerular Filtration Rate 77 mL/min (>60); Est Glom Filt Rate - Afr Amer 94 mL/min (>60); Globulin 4.7 g/dL (2.2-4.2); Glucose 177 mg/dL (74-106); High Density Lipoprotein 31 mg/dL; Potassium 3.5 mmol/L (3.5-5.1); Protein, Total 8.1 g/dL (6.4-8.2); Sodium Level 136 mmol/L (136-145); T4 Free Direct 1.13 ng/dL (0.76-1.46); Thyroid Stim Hormone (TSH) 1.46 uIU/mL (0.358-3.74); Triglycerides 194 mg/dL; Very Low Density Lipoprotein 39 mg/dL (5-40)
== END ==
PROVIDERS: Nurse Practitioner Family
DX: E78.00 Pure hypercholesterolemia, unspecified (principal); E78.5 Hyperlipidemia, unspecified; I10 Essential (primary) hypertension; F33.1 Major depressive disorder, recurrent, moderate; R53.83 Other fatigue; Z95.2 Presence of prosthetic heart valve; E87.6 Hypokalemia
CPT/HCPCS: 36415; 80053; 80061; 82306; 83036; 84439; 84443; 85025; 87040

== ENCOUNTER → 2019-05-31 11:37 | Outpatient (CLI) | payer MEDICAID, SELFPAY ==
--- NOTE | 2019-05-31 11:55 | BI_ITS ---
MAMMOGRAPHY - BILATERAL SCREENING REASON FOR EXAM: Female, 59 years old. Routine annual screening examination. PERTINENT HISTORY: No pertinent history TECHNIQUE: Digital bilateral breast margareth (3D mammographic acquisition) in the CC and MLO projections. 2-D mediolateral oblique (MLO) and craniocaudad (CC) views of both breasts were obtained. CAD: Full Field Digital Mammography with Computer Added Detection was performed. COMPARISON: None. FINDINGS: Breast Composition: Fatty There are no dominant masses or suspicious calcifications. No other significant abnormalities are identified. BI/SCREEN MAMM (CAD) W/MARGARETH BILAT IMPRESSION: Stable bilateral screening mammogram. Yearly follow-up mammogram recommended. (A) ASSESSMENT CATEGORY: BIRADS Category 1: Negative. A letter regarding these results will be sent to the patient by the facility within 30 days. Approximately 10% of breast cancers are not detected by mammography. A normal mammogram should not delay biopsy of a clinically suspicious abnormality. [id number] Electronically Signed: Guerrero Gonzales, at 17:27 EST Tel , Service support ,
== END ==
PROVIDERS: Referring Provider Nurse Practitioner Family
DX: Z12.31 Encounter for screening mammogram for malignant neoplasm of breast (principal)
CPT/HCPCS: 77063; 77067

== ENCOUNTER 2019-06-06 15:12 | Outpatient (RCR) | payer MEDICAID, SELFPAY ==
[2019-06-06 15:37] LABS: International Normalized Ratio 2.9; Prothrombin Time (Protime)PT. 30.4 SECONDS (11.7-14.9)
== END 2019-06-06 18:00 ==
LOC: LAB 15:12
PROVIDERS: Family Provider Nurse Practitioner Family; Referring Provider Internal Medicine Cardiovascular Disease; Visit Provider Internal Medicine Cardiovascular Disease
DX: I35.2 Nonrheumatic aortic (valve) stenosis with insufficiency (principal); I34.0 Nonrheumatic mitral (valve) insufficiency; Z79.01 Long term (current) use of anticoagulants; Z95.2 Presence of prosthetic heart valve
CPT/HCPCS: 36415; 85610

== ENCOUNTER → 2019-06-06 15:24 | Outpatient (CLI) | payer MEDICAID, SELFPAY ==
--- NOTE | 2019-06-06 15:32 | RAD_ITS ---
STUDY: X-RAY - RIGHT FOOT CLINICAL: Pain for 2 weeks, no specific injury. TECHNIQUE: 2 view(s) of the foot. COMPARISON: None. FINDINGS: There are posterior and plantar calcaneal enthesophytes. Otherwise, unremarkable talus, calcaneus, and tarsal bones. Normal visualized subtalar, talonavicular, calcaneocuboid, tarsal and tarsometatarsal articulations. Normal metatarsi. There is moderate joint space narrowing of the metatarsophalangeal joint of the great toe. Normal tibial and fibular sesamoid bones. Normal interphalangeal joint of the great toe. Normal phalanges of the great toe. Normal second through fifth metatarsophalangeal joints. Normal interphalangeal joints and phalanges of the lesser toes. There are hammertoe deformities of the second through fourth toes. The soft tissue structures are unremarkable. 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 Electronically Signed: Edvin Bonds MD at 15:30 EST Tel , Service support ,
== END ==
DX: M79.671 Pain in right foot (principal); I35.2 Nonrheumatic aortic (valve) stenosis with insufficiency; I34.0 Nonrheumatic mitral (valve) insufficiency; Z79.01 Long term (current) use of anticoagulants; Z95.2 Presence of prosthetic heart valve
CPT/HCPCS: 36415; 73620; 85610

== ENCOUNTER 2019-08-15 08:30 | Outpatient (RCR) | payer MEDICAID, SELFPAY ==
[2019-07-13 14:17] VITALS: BMI 41.8
--- NOTE | 2019-07-25 09:12 | HP.PTEVAL_ITS ---
Patient's Visit Information CHELSEA MCKEON is a 59 year old F referred to Physical Therapy by ROCK Lepe with a diagnosis of R abdominal wall strain. Date of Evaluation: 07/25/19 Physical Therapist: DIVINE Diaz - Visit Plan Frequency: 3x /Week Duration: 4 Weeks Plan: 3X/ week for 4 weeks for thoracic and postural exercises, R shoulder AROM and shoulder and scapular exercises, c-spine AROM and centralization exercises, core exercises with HEP and if needed may do some US. - Subjective Subjective: 2 weeks ago she took a tumble and landed on hr R side and having sorness on her side and upper shoulder blade area. (points to R shoulder blade and down the side of her ribs). She did not get an x-ray but does not believe that she broke anything. Her ROM is improving. Heat helps. She is sleeping better than she was... sleep time varies ( about 6 hours). SHe has no N&T in those areas. She has Carpal Tunnel B. She does get burning her upper back and neck when she is standing too long. - Pain Rib area Pain Intensity (Out of 10): 5 R shoulder blade Pain Intensity (Out of 10): 7 - Objective Gait: walks with a normal gait pattern with shortened stride. Patella DTR's 2+/3 B. Pt is able to walk on her heels and toes. LE MMT: B hip flex 4-/5, R hip abd 4/5 and L hip abd NT due to not being able to lay on the R side, R knee flex and ext 4/5 and L knee flex and ext 4-/5. -SLR B and - SLUMP test. Pt is able to do a full ROM bridge but is painful. LTR has some increase pain. Can not lay on R side.... due to thoracic/rib pain. C-spine AROM: flex 100%, EXT 25%, B Rotation 75%, and SB R 25% and L 50%. UE AROM: flexion on the R to about 120 degrees and R IR to R PSIS (L flexion to about 170 degrees and IR to L3). UE MMT: 4/5 B flex, abd, ER, IR. C-spine retraction: increased burning in her R shoulder blade. C-spine extension in sitting pt had some relief of shoulder blade pain. Palpation: pt was very tender to light palpation over the R scapula and did not feel any obvious lumps... Pt was sore with almost all movements - Goals Goal 1:: I HEP Goal Time Frame: 2-4 Weeks Goal 2:: Decrease R shoulder blade pain and R side pain to 2/10 with ADL's and be ablet to lay on the R side to sleep. Goal Time Frame: 2-4 Weeks Goal 3:: Full R shoulder AROM without pain Goal Time Frame: 2-4 Weeks Goal 4:: Increase C-spine AROM to full without any shoulder blade pain on the Right. Goal Time Frame: 2-4 Weeks - Rehabilitation Potential Rehabilitation Potential: Good - Anticipated Interventions Patient/Client Instruction: Educate patient on: Condition, Plan of Care For the Purpose of:: To decrease pain, To increase ROM, To improve nutrient delivery to tissue, To improve muscle performance and motor function, To improve ability to perform ADL's, To increase tolerance to activity/condition/position, To improve performance and independence with ADL's, To decrease level of supervision to perform tasks, To improve ability of physical actions for home/community/work/leisure, To improve health of tissue, To increase flexibility/ROM Therapeutic Exercise to Include: Strength training, Postural training, Flexibilty training, Passive ROM, Active ROM, Octavia Exercises, Scapular Strength/Stabilization For the Purpose of:: To decrease pain, To increase ROM, To improve nutrient delivery to tissue, To increase oxygenation perfusion, To improve muscle performance and motor function, To improve ability to perform ADL's, To increase tolerance to activity/condition/position, To improve performance and inde pendence with ADL's, To decrease level of supervision to perform tasks, To improve health of tissue, To decrease soft tissue restriction, To increase flexibility/ROM Manual Therapy Techniques to Include: Passive ROM For the Purpose of:: To increase ROM, To improve nutrient delivery to tissue Cryotherapy (ice pack, ice massage): Yes Thermo therapy (hot pack): Yes Ultrasound (thermal/non thermal): Yes For the Purpose of:: To decrease pain, To increase ROM, To improve nutrient delivery to tissue Thank you for the opportunity to evaluate your patient. For Medicare and Medicare HMO plans, please review the plan of care and approve it. It will need to be FAXED BACK to us at [phone] for Medicare purposes. For Medicare only, by signing this I certify the plan of care. Please let me know if there are questions or concerns regarding this plan of care. Physician Signature: Date:
--- NOTE | 2019-08-15 08:52 | HP.PTDCSUM ---
It has been my pleasure to treat CHELSEA MCKEON referred by ROCK Lepe, with the diagnosis of R abdominal wall strain for a total of 9 visit(s). Discharge Date: 08/15/19 Please see the following information for a summary of their discharge status. Subjective: Once in awhile she has a shoulder blade pain to 1-2/10 but she can lay on that side now. She feels that she can continue with her exercises at home. She has a little stomach upset today and wants to leave as soon as she can. Rib area Pain Intensity (Out of 10): 0 R shoulder blade Pain Intensity (Out of 10): 0 % Improvement: 95 Objective/Function: LEFS. Full B shoulder AROM into flex, abd, ER and IR. R shoulder MMT: 4-/5 flex, abd, and 4/5 ER and IR. C-spine AROM: flex 100%, ext 75%, SB B 75%, Rot B 80% ( slight increase in pain in R shoulder blade at end range)... Goal 1:: I HEP Goal Progress: Goal Met Goal 2:: Decrease R shoulder blade pain and R side pain to 2/10 with ADL's and be ablet to lay on the R side to sleep. Goal Progress: Goal Met Goal 3:: Full R shoulder AROM without pain Goal Progress: Goal Met Goal 4:: Increase C-spine AROM to full without any shoulder blade pain on the Right. Goal Progress: Progressing Plan: DC PT to HEP. Issued a green band to increase her exercises at home. Pt wanted more exercises for other body part but said we would have to do a whole new eval for those. Did show her standing on a band and doing abduction below 90 degrees Discharge Comments: DC PT to HEP If there are questions or concerns regarding this patient's physical therapy, please feel free to call me at [phone]. Thank you for the referral of this patient. Sincerely, Cande Lopez, MPT
== END 2019-08-15 19:00 | disposition home or self-care (01) ==
LOC: PT 08:30
PROVIDERS: Referring Provider Nurse Practitioner Family; Visit Provider Nurse Practitioner Family
DX: S39.011D Strain of muscle, fascia and tendon of abdomen, subsequent encounter (principal)
CPT/HCPCS: 97110; 97162; 97530

== ENCOUNTER → 2019-08-18 11:39 | Outpatient (CLI) | payer MEDICAID, SELFPAY ==
[2019-08-16 13:00] VITALS: BMI 40.4
== END ==
PROVIDERS: Visit Provider Nurse Practitioner Family
DX: R00.2 Palpitations (principal)
CPT/HCPCS: 93225; 93226

== ENCOUNTER 2019-08-24 13:54 | Outpatient (RCR) | payer MEDICAID, SELFPAY ==
[2019-07-13 14:17] VITALS: BMI 41.8
[2019-08-10 11:15] LABS: Prothrombin Time (Protime)PT. 35.5 SECONDS (11.7-14.9)
[2019-08-10 12:11] LABS: International Normalized Ratio 3.6
[2019-08-24 14:42] LABS: International Normalized Ratio 2.7; Prothrombin Time (Protime)PT. 28.7 SECONDS (11.7-14.9)
== END 2019-08-24 18:00 | disposition home or self-care (01) ==
LOC: LAB 13:54
PROVIDERS: Family Provider Nurse Practitioner Family; Referring Provider Internal Medicine Cardiovascular Disease; Visit Provider Internal Medicine Cardiovascular Disease
DX: I35.2 Nonrheumatic aortic (valve) stenosis with insufficiency (principal); I34.0 Nonrheumatic mitral (valve) insufficiency; Z79.01 Long term (current) use of anticoagulants; Z95.2 Presence of prosthetic heart valve; S39.011D Strain of muscle, fascia and tendon of abdomen, subsequent encounter
CPT/HCPCS: 36415; 85610; 97110

== ENCOUNTER 2019-09-21 08:44 | Outpatient (RCR) | payer MEDICAID, SELFPAY ==
[2019-08-16 13:00] VITALS: BMI 40.4
[2019-09-21 09:28] LABS: Prothrombin Time (Protime)PT. 30.5 SECONDS (11.7-14.9)
== END 2019-09-21 18:00 | disposition home or self-care (01) ==
LOC: LAB 08:44
PROVIDERS: Family Provider Nurse Practitioner Family; Referring Provider Internal Medicine Cardiovascular Disease; Visit Provider Internal Medicine Cardiovascular Disease
DX: I35.2 Nonrheumatic aortic (valve) stenosis with insufficiency (principal); I34.0 Nonrheumatic mitral (valve) insufficiency; Z79.01 Long term (current) use of anticoagulants; Z95.2 Presence of prosthetic heart valve
CPT/HCPCS: 36415; 85610

== ENCOUNTER 2019-10-18 09:51 | Emergency (ER) | payer MEDICAID, SELFPAY ==
[2019-08-16 13:00] VITALS: BMI 40.4
[2019-10-18] VITALS (7 sets, daily range): BP systolic 142–147; BP diastolic 51–78; PULSE 70–80; RESP 18–20; TEMP 36.9; O2SAT 93–98; BMI 42.3
--- NOTE | 2019-10-18 10:10 | EKG12_ITS ---
Test Reason : SOB Blood Pressure : / mmHG Vent. Rate : 072 BPM Atrial Rate : 072 BPM P-R Int : 240 ms QRS Dur : 140 ms QT Int : 464 ms P-R-T Axes : -12 -28 162 degrees QTc Int : 508 ms Sinus rhythm with 1st degree A-V block with Premature atrial complexes Left bundle branch block Abnormal ECG Confirmed by ANNA MARIE ARREOLA, TIM ([id number]), newspaper managing editor MOOK QUEEN ([id number]) on 10/21/2019 9:08:04 AM Referred By: DC Confirmed By:BEBE THRASHER MD
--- NOTE | 2019-10-18 10:10 | RAD_ITS ---
STUDY: X-RAY CHEST REASON FOR EXAM: Female, 59 years old. INCREASED SOB SINCE LAST NIGHT. MINOR COUGH 10# WEIGHT GAIN IN LAST WEEK. HX OF CHF. PRESSURE TO CHEST. MULTIPLE OTHER C/O. TECHNIQUE: Single AP portable view of the chest. COMPARISON: Comparison is made with prior study dated February 08, 2018. FINDINGS: EKG electrodes are seen. There is evidence of passive congestion and mild degree of CHF. There is no demonstrated pleural abnormality. Sternal cerclage wires are present from a prior sternotomy. Status post mitral valve replacement. Cardiomegaly. Normal mediastinum and pauline. Normal visualized pulmonary arteries. Normal visualized aortic arch and descending thoracic aorta. There are degenerative changes of the visualized thoracic spine. Normal visualized ribs, clavicles, and shoulders. There is no demonstrated abnormality of the visualized soft tissue structures of the upper abdomen. RAD/Chest 1 View (Portable) IMPRESSION: Cardiomegaly. Mild degree of CHF. Electronically Signed: Luis Boogie, at 11:13 EDT , Service support ,
--- NOTE | 2019-10-18 10:10 | ED.VIS.GEN ---
History of Present Illness Chief Complaint: Shortness of Breath Informant: Patient Narrative: Patient is a 59-year-old female with a past medical history of CHF who presents to the emergency department for shortness of breath. She states that this recently gotten bad overnight. Lying flat makes it worse as well as ambulating. She does have a generalized chest tightness but no chest pain. She has had a very mild cough that has been nonproductive. She states that she has gained about 10 pounds over the past week. She is on a water pill and she does fluctuate her weight often. She denies any fevers, chills or myalgias. No associated nausea/vomiting. She denies a smoking history or COPD. She does have a history of aortic valve replacement and is on warfarin. She states that it has been a long time since she had her INR checked. She feels like her face is puffy. She does wear compression socks daily. Legs are not more swollen than usual. She denies any history of blood clots in her legs or lungs. No history of heart attacks. She denies knowing any sick contacts with similar symptoms. Past Medical History - Allergies and Home Meds Allergies/Adverse Reactions: Allergies clarithromycin [From Biaxin] Allergy (Severe, Verified 10/18/19 09:56) SOB, hives and swelling cephalexin [Cephalexin] Allergy (Verified 10/18/19 09:56) Rash simvastatin Allergy (Verified 10/18/19 09:56) Rash sulfamethoxazole Allergy (Verified 10/18/19 09:56) Rash trimethoprim Allergy (Verified 10/18/19 09:56) Rash bupropion Adverse Reaction (Severe, Verified 10/18/19 09:56) worsened depression ciprofloxacin Adverse Reaction (Verified 10/18/19 09:56) Other Macrolide Antibiotics Adverse Reaction (Verified 10/18/19 09:56) Unknown Penicillins Adverse Reaction (Verified 10/18/19 09:56) Unknown adhesive tape Allergy (Uncoded 10/18/19 09:56) Itching Primary Care Physician: Vidhi Liu [NON-STAFF] - 2 Days Prior records reviewed: Yes Past Medical History: - - CHF, valve replacement, anxiety/depression, hyperlipidemia Surgical History: - - 2003 aortic root surgery, tubal ligation, mitral and aortic valve replacements in May 2016. Smoking Status: Never smoker Alcohol: None Drugs: None - Family History Maternal Family History: Family History (Last Reviewed 07/13/19 @ 15:23 by ROCK Harris) Father CAD (coronary artery disease) Hypertension Mother Sudden cardiac Hypertension Abdominal aortic aneurysm rupture Brother Hypertension Sister Hypertension Family History: Reports: - - asthma Paternal Family History: Family History (Last Reviewed 07/13/19 @ 15:23 by ROCK Harris) Father CAD (coronary artery disease) Hypertension Mother Sudden cardiac Hypertension Abdominal aortic aneurysm rupture Brother Hypertension Sister Hypertension Family History: Reports: Heart Disease - at 77, - - Obesity Sibling Family History: Family History (Last Reviewed 07/13/19 @ 15:23 by ROCK Harris) Father CAD (coronary artery disease) Hypertension Mother Sudden cardiac Hypertension Abdominal aortic aneurysm rupture Brother Hypertension Sister Hypertension Family History: Reports: COPD, Diabetes, High Cholesterol, Heart Disease, Hypertension, - - Obesity Offspring Family History: Family History (Last Reviewed 07/13/19 @ 15:23 by ROCK Harris) Father CAD (coronary artery disease) Hypertension Mother Sudden cardiac Hypertension Abdominal aortic aneurysm rupture Brother Hypertension Sister Hypertension Family History: Reports: Asthma, - - Fatty liver Review of Systems All systems negative except as indicated General: Denies: Chills, Fever, Sweats Eyes: Denies: Visual changes - bilaterally, Diplopia ENT: Denies: Rhinorrhea, Sore throat Cardiovascular: Denies: Chest pain, Palpitations Respiratory: Reports: Dyspnea, Cough, Dyspnea on exertion, Orthopnea Gastrointestinal: Denies: Abdominal pain, Nausea, Vomiting, Diarrhea, Melena, Hematochezia Genitourinary: Denies: Dysuria, Hematuria, Frequency Musculoskeletal: Reports: Swelling. Denies: Back pain, Extremity Pain Skin: Denies: Rash, Wounds Neurological: Denies: Headache, Weakness, Numbness Physical Exam Vital Signs/Narrative: Vital Signs Temp Pulse Resp BP Pulse Ox 10/18/19 09:53 98.4 F 77 20 H 147/78 H 96 Inital Vital Signs reviewed: Yes General: Well nourished, Well developed, No Acute Distress Head: Normocephalic, Atraumatic Eyes: Perrl, EOMI ENT: Moist mucous membranes, No rhinorrhea Neck: Supple, Nontender Cardiovascular: Regular rate, Regular rhythm, No murmurs, Tachycardia, - - Mechanical valve clicking present. Respiratory: CTA bilaterally, Chest nontender, - - Increased work of breathing and mildly tachypneic Abdomen: Soft, Nontender, Nondistended, Normal bowel sounds Back: Nontender, Normal Inspection Extremities: Nontender, No edema - Has compression stockings on.. Negative for: Calf Tenderness Skin: Normal color, No rash Neurological: Alert, Oriented x3, Cranial nerves II-XII grossly intact, Normal Strength, Normal Sensation Psychological: Normal affect, Normal Mood Diagnostic/Tx/Re-eval - EKG Initial EKG Interpretation: - - Rate of 72 bpm. UT interval of 240 with first-degree AV block. Prolonged QTC at 508. Left bundle branch block present with QRS of [address] elevations or depressions. Previous EKG for comparison was performed on July 09, 2017 is similar in appearance. - Medical Decision Making Patient presents to emerge department for shortness of breath. She has had an increase in weight gain over the past week. History of CHF. Will check basic lab work, EKG and chest x-ray. We will also check a COVID test. Patient's work-up showed that her BNP to be slightly elevated. Her coronavirus test is negative. No other significant abnormality appreciated on lab work. Troponin within normal limits. Chest x-ray showed mild pulmonary vascular congestion. I do believe that this is a CHF exacerbation causing her shortness of breath. Did give a dose of IV Lasix. She is a starting to work as she has having frequent trips to the bathroom. We did a ambulatory pulse ox on her which never desaturated. Repeat examinations her work of breathing has significantly decreased. She does appear a lot more comfortable now. She does feel comfortable going home at this time. She understands that if she develops any worsening shortness of breath or develops any chest pain she is to return to the emerge department immediately. Low concern for pulmonary embolism given the normal vital signs and lack of unilateral leg swelling. At this time will discharge home in stable condition. She otherwise needs to follow-up with her PCP. ED Disposition - Plan for ED Patient: Disposition: Home or Assisted Living Diagnosis: CHF exacerbation, Dyspnea Instructions: ED CHF General Referrals: Vidhi Liu [NON-STAFF] - 2 Days
[2019-10-18 10:32] LABS: Absolute Neutrophil Count 3.6 X10^3/uL (2.0-7.7); Basophil# 0.01 X10^3/uL; Basophil% 0.2 % (0-1); Eosinophil# 0.17 X10^3/uL; Eosinophils% 2.7 % (0-5); Hematocrit 39.1 % (37-47); Hemoglobin 12.5 g/dL (12.0-15.0); Lymphocyte % 32.8 % (19-41); Mean Corpuscular Hgb 31.2 pg (27.0-32.0); Mean Corpuscular Volume 97.5 fL (81-99); Mean Platelet Vol. 10.3 fl (6.2-12.0); Monocyte# 0.54 X10^3/uL; Monocyte% 8.4 % (0-10); NRBC Flagged by Analyzer 0 % (0-5); Neutrophil # 3.57 X10^3/uL (2.7-7.7); Neutrophil % 55.6 % (47-70); Platelet Count 188 K/mm3 (150-450); RBC Distribution Width CV 13.4 % (11.6-14.6); Red Blood Count 4.01 M/mm3 (4.2-5.4); White Blood Count 6.4 K/mm3 (4.4-11.0)
[2019-10-18 10:43] LABS: International Normalized Ratio 3.1; Prothrombin Time (Protime)PT. 31.3 SECONDS (11.7-14.9)
[2019-10-18 10:51] LABS: Anion Gap 4 (5-15); BUN 11 mg/dL (7-18); BUN/Creat Ratio 16.9 RATIO (10-20); Calcium,Total 8.1 mg/dL (8.5-10.1); Chloride 108 mmol/L (98-107); Creatinine, Serum 0.65 mg/dL (0.55-1.02); EST Glomerular Filtration Rate 100 mL/min (>60); Est Glom Filt Rate - Afr Amer 121 mL/min (>60); Estimated Creatinine Clearance 92.86 ml/min; Glucose 149 mg/dL (74-106); Magnesium 1.9 mg/dL (1.6-2.6); Potassium 3.8 mmol/L (3.5-5.1); Sodium Level 139 mmol/L (136-145)
[2019-10-18 10:52] LABS: BNP,B-Type NATRIURETIC PEPTIDE 336.9 pg/mL (0-100)
[2019-10-18] MEDS: Furosemide 20 MG/2 ML VIAL IV (12:02)
== END 2019-10-18 12:59 | disposition home or self-care (01) ==
PROVIDERS: Emergency Provider Emergency Medicine; PCP Nurse Practitioner Family
DX: I50.9 Heart failure, unspecified (principal); E78.5 Hyperlipidemia, unspecified; F32.9 Major depressive disorder, single episode, unspecified; F41.9 Anxiety disorder, unspecified; I44.7 Left bundle-branch block, unspecified; I44.0 Atrioventricular block, first degree; Z95.2 Presence of prosthetic heart valve; Z79.01 Long term (current) use of anticoagulants; Z79.82 Long term (current) use of aspirin; Z79.899 Other long term (current) drug therapy
CPT/HCPCS: 71045; 80048; 83735; 83880; 84484; 85025; 85610; 87635; 93005; 96374; 99285; C9803; G2023; A4216; J1940; U0003

== ENCOUNTER 2019-11-01 15:30 | Outpatient (RCR) | payer MEDICAID, SELFPAY ==
[2019-08-16 13:00] VITALS: BMI 40.4
--- NOTE | 2019-11-01 16:13 | HP.PTDCSUM ---
It has been my pleasure to treat CHELSEA MCKEON referred by ROCK Lepe, with the diagnosis of B knee pain for a total of 14 visit(s). Discharge Date: 11/01/19 Please see the following information for a summary of their discharge status. Subjective: Pt. R knee Pain Intensity (Out of 10): 0 L knee Pain Intensity (Out of 10): 0 % Improvement: 100 Objective/Function: Pt. is overall doing great. Pt. reports being 100% better overall. Pt. reports no pain. Pt. is now independent with her HEP for both gym and home exercises. Pt. is no longer having pain. Goal 1:: LTG: Pt. to be I with HEP for LE strengthening including gym exercises. Goal Progress: Goal Met Goal 2:: STG: Pt. to ambulate unlimited distances without increase in B knee pain. Goal Progress: Goal Met Goal 3:: LTG: Pt. to be able to negotiate 1 flight of steps with 1 HR and reciprocal pattern without increase in symptoms. Goal Progress: Goal Met Goal 4:: LTG: pt. to be able to get off floor with appropriate BLE strength without increase in symptoms. Goal Progress: Goal Met Plan: Pt. will be DC from PT this date. Discharge Comments: Pt. did well with strengthening and functional strengthenign progression. Pt. is no longer having any pain. Pt. is doing great and will be DC from PT at this point in time. If there are questions or concerns regarding this patient's physical therapy, please feel free to call me at [phone]. Thank you for the referral of this patient. Sincerely, Elian Huber DPT
== END 2019-11-01 19:00 | disposition home or self-care (01) ==
LOC: PT 15:30
PROVIDERS: Referring Provider Nurse Practitioner Family; Visit Provider Nurse Practitioner Family
DX: M25.561 Pain in right knee (principal); M25.562 Pain in left knee
CPT/HCPCS: 97110; 97161; 97164

== ENCOUNTER 2019-11-09 12:06 | Outpatient (RCR) | payer MEDICAID, SELFPAY ==
[2019-08-16 13:00] VITALS: BMI 40.4
[2019-10-18 09:53] VITALS: BMI 42.3
[2019-11-09 12:43] LABS: Absolute Lymphocyte Count 2.81 X10^3/uL (0.83-4.51); Absolute Neutrophil Count 2.8 X10^3/uL (2.0-7.7); Basophil# 0.03 X10^3/uL; Basophil% 0.5 % (0-1); Eosinophil# 0.18 X10^3/uL; Eosinophils% 2.8 % (0-5); Hematocrit 41.7 % (37-47); Hemoglobin 13.6 g/dL (12.0-15.0); Lymphocyte # 2.81 X10^3/ul (4.0); Lymphocyte % 44.3 % (19-41); Mean Corp Hgb Conc 32.6 g/dL (32-36); Mean Platelet Vol. 10.8 fl (6.2-12.0); Monocyte# 0.52 X10^3/uL; Monocyte% 8.2 % (0-10); NRBC Flagged by Analyzer 0 % (0-5); Neutrophil # 2.78 X10^3/uL (2.7-7.7); Neutrophil % 43.9 % (47-70); Platelet Count 231 K/mm3 (150-450); RBC Distribution Width CV 13.2 % (11.6-14.6); RBC Distribution Width SD 45.5 fl (35.1-43.9); Red Blood Count 4.39 M/mm3 (4.2-5.4); White Blood Count 6.3 K/mm3 (4.4-11.0)
[2019-11-09 12:56] LABS: International Normalized Ratio 3.1; Prothrombin Time (Protime)PT. 31.6 SECONDS (11.7-14.9)
[2019-11-09 12:58] LABS: Hemoglobin A1c 6.1 % (3.8-5.6)
[2019-11-09 13:11] LABS: Cholesterol 216 mg/dL (200); High Density Lipoprotein 28 mg/dL; Triglycerides 249 mg/dL; Very Low Density Lipoprotein 50 mg/dL (5-40)
== END 2019-12-05 18:00 | disposition home or self-care (01) ==
LOC: LAB 12:06
PROVIDERS: Family Provider Nurse Practitioner Family; Referring Provider Internal Medicine Cardiovascular Disease; Visit Provider Internal Medicine Cardiovascular Disease
DX: I35.2 Nonrheumatic aortic (valve) stenosis with insufficiency (principal); I34.0 Nonrheumatic mitral (valve) insufficiency; Z79.01 Long term (current) use of anticoagulants; Z95.2 Presence of prosthetic heart valve
CPT/HCPCS: 36415; 80061; 82306; 83036; 85025; 85610

== ENCOUNTER → 2019-11-24 | Outpatient (CLI) | payer MEDICAID, SELFPAY ==
[2019-11-24 08:33] VITALS: BMI 41.1
--- NOTE | 2019-11-24 08:45 | EMB_PTH ---
PATIENT: CHELSEA MCKEON [facility] U#:[id number] AGE/SX: 59/F ROOM: RE11/24/[address]: ROCK Modi : 1960 BED: DIS: 11/24/2019 SPEC #: [id number] RECD: 11/24/19 12:00 STATUS: ANDRIY CONRAD #: [id number] CHOCO: 11/24/19 08:[address]: Betsy Moran NP DEPT: SURGICAL PATHOLOGY RECD BY: Ade Lino ENTERED: 11/24/19 14:00 SP TYPE: ENDOM BX/C CANDIS DR: ROCK Lepe Tissues: Endometrium, NOS Procedures: Surgery Specimen Level IV HEADER OPERATION: Endometrial biopsy PRE-OP DIAGNOSIS: Postmenopausal bleeding TISSUE SUBMITTED: Endometrial biopsy MICROSCOPIC DIAGNOSIS Endometrial biopsy: Complex endometrial hyperplasia with atypia. See comment. BRIAN:ann 11/25/19 COMMENT Clinical correlation and appropriate follow up are necessary. MICROSCOPIC DESCRIPTION Slides are reviewed. GROSS DESCRIPTION Received is one container labeled with the patient's name and not further designated. The specimen consists of multiple irregular fragments of lux soft tissue mixed with mucoid tissue that in aggregate measure 2.5 x 2.5 x 0.1 cm. The specimen is totally submitted in one cassette. / SJ:ann 11/24/19 TC:5 CPT: 99648
== END | disposition home or self-care (01) ==
LOC: LABSPEC 13:14
PROVIDERS: PCP Nurse Practitioner Family; Referring Provider Nurse Practitioner Women's Health; Visit Provider Nurse Practitioner Women's Health
DX: N85.01 Benign endometrial hyperplasia (principal); N95.0 Postmenopausal bleeding
CPT/HCPCS: 88305

== ENCOUNTER → 2019-12-06 11:21 | Outpatient (CLI) | payer MEDICAID, SELFPAY ==
[2019-11-24 08:33] VITALS: BMI 41.1
--- NOTE | 2019-12-06 11:21 | US_ITS ---
STUDY: ULTRASOUND OF THE FEMALE PELVIS - COMPLETE REASON FOR EXAM: Female, 59 years old. Post menopausal bleeding LMP: The patient is postmenopausal. TECHNIQUE: Transabdominal and Transvaginal TECHNICAL QUALITY: Adequate. COMPARISON: None. FINDINGS: The uterus is anteverted and is in a midline position. The uterus measures 7.5 cm x 4.8 cm x 3.9 cm. There is a Nabothian cyst of the cervix. The endometrium is thickened and measures 15.5 mm in thickness, and is hyperechoic. There is no demonstrated endometrial mass. There is no demonstrated myometrial mass. I.U.D. - The patient does not have an I.U.D. The right ovary is non-visualized. There is a 1.7 cm x 1.8 JODY by 2.9 cm well-circumscribed fluid collection in the right adnexal region. This may represent a paraovarian cyst. The left ovary is non-visualized. There is no fluid in the cul-de-sac. The pre void volume of the bladder was 257 ml. Polycystic ovary disease: No. US/Pelvic (Non ) IMPRESSION: Thickened endometrium. Findings suggestive of a 1.7 cm x 1.8 cm by 2.9 cm right paraovarian cyst. Electronically Signed: Luis Boogie, at 14:34 EDT , Service support ,
--- NOTE | 2019-12-06 11:21 | US_ITS ---
STUDY: ULTRASOUND OF THE FEMALE PELVIS - COMPLETE REASON FOR EXAM: Female, 59 years old. Post menopausal bleeding LMP: The patient is postmenopausal. TECHNIQUE: Transabdominal and Transvaginal TECHNICAL QUALITY: Adequate. COMPARISON: None. FINDINGS: The uterus is anteverted and is in a midline position. The uterus measures 7.5 cm x 4.8 cm x 3.9 cm. There is a Nabothian cyst of the cervix. The endometrium is thickened and measures 15.5 mm in thickness, and is hyperechoic. There is no demonstrated endometrial mass. There is no demonstrated myometrial mass. I.U.D. - The patient does not have an I.U.D. The right ovary is non-visualized. There is a 1.7 cm x 1.8 JODY by 2.9 cm well-circumscribed fluid collection in the right adnexal region. This may represent a paraovarian cyst. The left ovary is non-visualized. There is no fluid in the cul-de-sac. The pre void volume of the bladder was 257 ml. Polycystic ovary disease: No. US/Transvaginal Non- IMPRESSION: Thickened endometrium. Findings suggestive of a 1.7 cm x 1.8 cm by 2.9 cm right paraovarian cyst. Electronically Signed: Luis Boogie, at 14:34 EDT , Service support ,
--- NOTE | 2019-12-06 12:19 | ECHOCS_ITS ---
Reason For Study: valve replacement eval Procedure This was a 2D Doppler, Color Flow transthoracic echocardiogram. The study was technically difficult. Contrast injection was performed. Exam performed in department. Left Ventricle Normal LV size. Moderate concentric left ventricular hypertrophy. Left ventricular systolic function is normal. The estimated ejection fraction is 65 %. Stage 2 diastolic dysfunction. No regional wall motion abnormalities noted. Right Ventricle Normal RV size. Normal systolic function. Atria The left atrium is moderately enlarged. Normal right atrium. Mitral Valve Stable appearing mechanical mitral valve apparatus. Aortic Valve Peak aortic valve gradient 54 mmHg. Mean aortic valve gradient 26 mmHg. Stable appearing mechanical aortic valve apparatus. Pulmonic Valve The pulmonic valve is not well visualized. Great Vessels Normal aortic root. The pulmonary artery is normal size. Normal inferior vena cava. Pericardium/Pleural No pericardial effusion. Medication 22 gauge I.V. with prn adaptor inserted into right arm. Diluted definity 3ml given slow IV push to enhance endocardial definition. MMode/2D Measurements & Calculations LVIDd: 5.1 cm IVSd: 1.6 cm Ao root diam: 2.7 cm LVIDs: 3.4 cm LVPWd: 1.9 cm RVDd: 4.0 cm FS: 32.5 % LAV(MOD-sp4): 82.1 ml LA A4 area: 25.7 cm2 RA A4 area: 13.7 cm2 Time Measurements MV dec time: 0.30 sec Doppler Measurements & Calculations MV E max ej: 178.7 cm/sec Lat Peak E' Ej: 8.2 cm/sec Med Peak E' Ej: 5.7 cm/sec MV A max ej: 96.3 cm/sec E/E' lat: 21.8 E/E' med: 31.5 MV E/A: 1.9 MV V2 max: 208.0 cm/sec MV P1/2t max ej: 209.0 cm/sec Ao V2 max: 367.2 cm/sec MV max P.3 mmHg MV P1/2t: 84.2 msec Ao max P.9 mmHg MV V2 mean: 101.4 cm/sec MV dec slope: 727.2 cm/sec2 Ao V2 mean: 237.4 cm/sec MV mean P.0 mmHg MVA(P1/2t): 2.6 cm2 Ao mean P.4 mmHg MV V2 VTI: 49.3 cm Ao V2 VTI: 85.7 cm LV V1 max: 157.1 cm/sec PA V2 max: 117.9 cm/sec LV V1 max P.9 mmHg LV V1 mean P.2 mmHg LV V1 mean: 105.4 cm/sec LV V1 VTI: 39.9 cm Interpretation Summary Normal LV size. Moderate concentric left ventricular hypertrophy. Left ventricular systolic function is normal. The estimated ejection fraction is 65 %. The left atrium is moderately enlarged. Stage 2 diastolic dysfunction. Contrast injection was performed. Compared to prior study, there is no significant change. Ordering Physician: Guerrero Jason Referring Physician: Pepper Davis Performed By: Terry Escobar RCS
== END ==
PROVIDERS: PCP Nurse Practitioner Family; Referring Provider Nurse Practitioner Family; Visit Provider Nurse Practitioner Family
DX: I50.32 Chronic diastolic (congestive) heart failure (principal); I44.7 Left bundle-branch block, unspecified; Z95.2 Presence of prosthetic heart valve; N95.0 Postmenopausal bleeding
CPT/HCPCS: 76830; 76856; 93306; Q9957; A4216; C8929

== ENCOUNTER 2019-12-30 08:54 | Outpatient (RCR) | payer MEDICAID, SELFPAY ==
[2019-11-24 08:33] VITALS: BMI 41.1
[2019-12-14 10:09] VITALS: BMI 41.1
[2019-12-14 11:31] LABS: International Normalized Ratio 2.9; Prothrombin Time (Protime)PT. 29.6 SECONDS (11.7-14.9)
== END 2019-12-30 18:00 | disposition home or self-care (01) ==
LOC: LAB 08:54
PROVIDERS: Family Provider Nurse Practitioner Family; Referring Provider Internal Medicine Cardiovascular Disease; Visit Provider Internal Medicine Cardiovascular Disease
DX: I35.2 Nonrheumatic aortic (valve) stenosis with insufficiency (principal); I34.0 Nonrheumatic mitral (valve) insufficiency; Z95.2 Presence of prosthetic heart valve; Z79.01 Long term (current) use of anticoagulants
CPT/HCPCS: 36415; 85610

== ENCOUNTER 2020-02-02 11:49 | Outpatient (RCR) | payer MEDICAID, SELFPAY ==
[2019-12-14 10:09] VITALS: BMI 41.1
[2020-01-10 16:44] LABS: International Normalized Ratio 1.4; Prothrombin Time (Protime)PT. 16.4 SECONDS (11.7-14.9)
[2020-01-13 17:19] LABS: Prothrombin Time (Protime)PT. 21.7 SECONDS (11.7-14.9)
[2020-01-20 16:34] LABS: International Normalized Ratio 2.6; Prothrombin Time (Protime)PT. 27.5 SECONDS (11.7-14.9)
[2020-02-02 12:53] LABS: Absolute Lymphocyte Count 2.16 X10^3/uL (0.83-4.51); Absolute Neutrophil Count 2.8 X10^3/uL (2.0-7.7); Basophil# 0.02 X10^3/uL; Basophil% 0.3 % (0-1); Eosinophil# 0.28 X10^3/uL; Eosinophils% 4.8 % (0-5); Hematocrit 40.1 % (37-47); Hemoglobin 12.8 g/dL (12.0-15.0); Lymphocyte # 2.16 X10^3/ul (4.0); Lymphocyte % 37.2 % (19-41); Mean Corp Hgb Conc 31.9 g/dL (32-36); Mean Corpuscular Hgb 31.1 pg (27.0-32.0); Mean Corpuscular Volume 97.3 fL (81-99); Mean Platelet Vol. 10.7 fl (6.2-12.0); Monocyte# 0.51 X10^3/uL; Monocyte% 8.8 % (0-10); NRBC Flagged by Analyzer 0 % (0-5); Neutrophil # 2.83 X10^3/uL (2.7-7.7); Neutrophil % 48.7 % (47-70); Platelet Count 246 K/mm3 (150-450); RBC Distribution Width CV 13.6 % (11.6-14.6); RBC Distribution Width SD 48.7 fl (35.1-43.9); Red Blood Count 4.12 M/mm3 (4.2-5.4); White Blood Count 5.8 K/mm3 (4.4-11.0)
[2020-02-02 13:07] LABS: International Normalized Ratio 2.9; Prothrombin Time (Protime)PT. 29.6 SECONDS (11.7-14.9)
[2020-02-02 13:21] LABS: ALB/GLOB Ratio 0.8 RATIO (0.9-2.4); AST(SGOT) 26 U/L (15-37); Alanine Aminotransfer ALT/SGPT 32 U/L (13-56); Albumin, Serum 3.3 g/dL (3.2-5.0); Alkaline Phosphatase 44 U/L (45-117); Anion Gap 6 (5-15); BUN 15 mg/dL (7-18); BUN/Creat Ratio 19.4 RATIO (10-20); Calcium,Total 8.5 mg/dL (8.5-10.1); Chloride 102 mmol/L (98-107); Cholesterol 213 mg/dL (200); Creatinine, Serum 0.77 mg/dL (0.55-1.02); EST Glomerular Filtration Rate 82 mL/min (>60); Est Glom Filt Rate - Afr Amer 99 mL/min (>60); Globulin 4.1 g/dL (2.2-4.2); Glucose 112 mg/dL (74-106); High Density Lipoprotein 36 mg/dL; Potassium 3.7 mmol/L (3.5-5.1); Protein, Total 7.4 g/dL (6.4-8.2); Sodium Level 139 mmol/L (136-145); Triglycerides 217 mg/dL; Very Low Density Lipoprotein 43 mg/dL (5-40)
== END 2020-02-02 18:00 | disposition home or self-care (01) ==
LOC: LAB 11:49
PROVIDERS: Family Provider Nurse Practitioner Family; Visit Provider Internal Medicine Cardiovascular Disease
DX: I35.2 Nonrheumatic aortic (valve) stenosis with insufficiency (principal); I34.0 Nonrheumatic mitral (valve) insufficiency; Z95.2 Presence of prosthetic heart valve; Z79.01 Long term (current) use of anticoagulants; E11.65 Type 2 diabetes mellitus with hyperglycemia; E87.6 Hypokalemia; I10 Essential (primary) hypertension; E78.5 Hyperlipidemia, unspecified; E55.9 Vitamin D deficiency, unspecified
CPT/HCPCS: 36415; 80053; 80061; 83036; 85025; 85610

== ENCOUNTER 2020-02-23 07:10 | Outpatient (RCR) | payer MEDICAID, SELFPAY ==
[2019-12-14 10:09] VITALS: BMI 41.1
[2020-02-23 08:14] LABS: International Normalized Ratio 2.9; Prothrombin Time (Protime)PT. 29.6 SECONDS (11.7-14.9)
== END 2020-02-23 18:00 | disposition home or self-care (01) ==
LOC: LAB 07:10
PROVIDERS: Referring Provider Internal Medicine Cardiovascular Disease; Visit Provider Internal Medicine Cardiovascular Disease
DX: Z95.2 Presence of prosthetic heart valve (principal); Z79.01 Long term (current) use of anticoagulants
CPT/HCPCS: 36415; 85610

== ENCOUNTER → 2020-03-15 18:25 | Outpatient (CLI) | payer MEDICAID, SELFPAY ==
[2019-12-14 10:09] VITALS: BMI 41.1
[2020-03-15 20:41] LABS: Probe Check PASS; Specimen Processing Control PASS
== END ==
PROVIDERS: Visit Provider Nurse Practitioner Acute Care
DX: R43.9 Unspecified disturbances of smell and taste (principal)
CPT/HCPCS: 87635; C9803; U0002; U0003

== ENCOUNTER 2020-03-28 11:54 | Outpatient (RCR) | payer MEDICAID, SELFPAY ==
[2019-12-14 10:09] VITALS: BMI 41.1
[2020-03-28 12:47] LABS: Absolute Lymphocyte Count 1.91 X10^3/uL (0.83-4.51); Absolute Neutrophil Count 2.6 X10^3/uL (2.0-7.7); Basophil# 0.02 X10^3/uL; Basophil% 0.4 % (0-1); Eosinophil# 0.15 X10^3/uL; Eosinophils% 2.9 % (0-5); Hematocrit 38.2 % (37-47); Hemoglobin 12.3 g/dL (12.0-15.0); Lymphocyte # 1.91 X10^3/ul (4.0); Lymphocyte % 36.8 % (19-41); Mean Corp Hgb Conc 32.2 g/dL (32-36); Mean Corpuscular Hgb 30.4 pg (27.0-32.0); Mean Corpuscular Volume 94.3 fL (81-99); Mean Platelet Vol. 10.9 fl (6.2-12.0); Monocyte# 0.47 X10^3/uL; Monocyte% 9.1 % (0-10); NRBC Flagged by Analyzer 0 % (0-5); Neutrophil # 2.63 X10^3/uL (2.7-7.7); Neutrophil % 50.6 % (47-70); Platelet Count 220 K/mm3 (150-450); RBC Distribution Width CV 13.2 % (11.6-14.6); RBC Distribution Width SD 46.3 fl (35.1-43.9); Red Blood Count 4.05 M/mm3 (4.2-5.4); White Blood Count 5.2 K/mm3 (4.4-11.0)
[2020-03-28 12:53] LABS: Prothrombin Time (Protime)PT. 35.6 SECONDS (11.7-14.9)
[2020-03-28 12:57] LABS: International Normalized Ratio 3.6
[2020-03-28 12:58] LABS: Hemoglobin A1c 6.1 % (3.8-5.6)
[2020-03-28 13:34] LABS: ALB/GLOB Ratio 0.9 RATIO (0.9-2.4); AST(SGOT) 17 U/L (15-37); Alanine Aminotransfer ALT/SGPT 26 U/L (13-56); Albumin, Serum 3.2 g/dL (3.2-5.0); Alkaline Phosphatase 44 U/L (45-117); Anion Gap 5 (5-15); BUN 15 mg/dL (7-18); BUN/Creat Ratio 22.6 RATIO (10-20); Calcium,Total 8.5 mg/dL (8.5-10.1); Chloride 104 mmol/L (98-107); Cholesterol 195 mg/dL (200); Creatinine, Serum 0.66 mg/dL (0.55-1.02); EST Glomerular Filtration Rate 97 mL/min (>60); Est Glom Filt Rate - Afr Amer 118 mL/min (>60); Globulin 3.7 g/dL (2.2-4.2); Glucose 117 mg/dL (74-106); High Density Lipoprotein 33 mg/dL; Potassium 3.6 mmol/L (3.5-5.1); Protein, Total 6.9 g/dL (6.4-8.2); Sodium Level 139 mmol/L (136-145); Triglycerides 188 mg/dL; Very Low Density Lipoprotein 38 mg/dL (5-40)
== END 2020-03-28 18:00 | disposition home or self-care (01) ==
LOC: LAB 11:54
PROVIDERS: Referring Provider Internal Medicine Cardiovascular Disease; Visit Provider Internal Medicine Cardiovascular Disease
DX: Z95.2 Presence of prosthetic heart valve (principal); Z79.01 Long term (current) use of anticoagulants
CPT/HCPCS: 36415; 80053; 80061; 83036; 85025; 85610

== ENCOUNTER 2020-04-10 15:43 | Outpatient (RCR) | payer MEDICAID, SELFPAY ==
[2020-04-10 12:39] VITALS: BMI 41.8
[2020-04-10 17:35] LABS: International Normalized Ratio 3.7; Prothrombin Time (Protime)PT. 36.8 SECONDS (11.7-14.9)
== END 2020-04-10 18:00 | disposition home or self-care (01) ==
LOC: LAB 15:43
PROVIDERS: Referring Provider Internal Medicine Cardiovascular Disease; Visit Provider Internal Medicine Cardiovascular Disease
DX: Z95.2 Presence of prosthetic heart valve (principal); Z79.01 Long term (current) use of anticoagulants
CPT/HCPCS: 36415; 85610

== ENCOUNTER → 2020-05-01 08:47 | Outpatient (CLI) | payer MEDICAID, SELFPAY ==
[2020-04-10 12:39] VITALS: BMI 41.8
--- NOTE | 2020-05-02 10:12 | PFT ---
INTRODUCTION: The patient is a 59-year-old female that presents for pulmonary function studies secondary to a diagnosis of shortness of breath. Respiratory therapy reports good patient effort. Bronchodilators were used during testing. INTERPRETATION: Forced expiration spirometry demonstrates no evidence of a large airways obstructive ventilatory defect. There was no significant response to aerosolized bronchodilators. Spirograms are of good quality and plateau normally. Body plethysmography was performed and reveals a decreased TLC to 4.18 L, 76% of predicted, indicative of a mild restrictive ventilatory impairment. Diffusing capacity by single breath CO is reduced at 70% of predicted. IMPRESSION: Mild restrictive ventilatory impairment with symmetric reduction in diffusing capacity.
== END ==
PROVIDERS: Visit Provider Nurse Practitioner Acute Care
DX: R06.02 Shortness of breath (principal)
CPT/HCPCS: 94060; 94726; 94729

== ENCOUNTER → 2020-05-17 | Outpatient (CLI) | payer MEDICAID, SELFPAY | END | disposition home or self-care (01) | PROVIDERS: Referring Provider Podiatrist; Visit Provider Podiatrist | DX: S90.31XA Contusion of right foot, initial encounter (principal) | CPT/HCPCS: 87070; 87075; 87205 ==

== ENCOUNTER 2020-05-21 13:58 | Observation (INO) | payer MEDICAID, SELFPAY ==
[2020-05-21 13:59] VITALS: BP 150/74; PULSE 70; RESP 16; TEMP 36.8; O2SAT 98; BMI 39.7
--- NOTE | 2020-05-21 14:38 | ED.DCSUM_ITS ---
History of Present Illness Chief Complaint: Wound Informant: Patient Onset: Today Narrative: 60-year-old female on Coumadin presenting for wound bleeding. Patient states she had a hematoma I&D today. Initially she had dropped something on her foot sustained a hematoma. Dr. Fleming felt it was getting infected so he did an I&D on this and removed the blood. Patient's foot was put in a dressing. She started on clindamycin. She states she went home and put her foot up as directed however it started bleeding more. Patient states she could barely get a ride here and had to put her foot in a bag to keep the blood from getting everywhere. Patient has not had her INR checked recently. - Past Medical History (1) Chronic diastolic (congestive) heart failure Status: Chronic (2) Essential (primary) hypertension Status: Chronic (3) HLD (hyperlipidemia) Status: Chronic Past Medical History - Allergies and Home Meds Allergies/Adverse Reactions: Allergies clarithromycin [From Biaxin] Allergy (Severe, Verified 05/21/20 13:59) SOB, hives and swelling cephalexin [Cephalexin] Allergy (Verified 05/21/20 13:59) Rash simvastatin Allergy (Verified 05/21/20 13:59) Rash sulfamethoxazole Allergy (Verified 05/21/20 13:59) Rash trimethoprim Allergy (Verified 05/21/20 13:59) Rash bupropion Adverse Reaction (Severe, Verified 05/21/20 13:59) worsened depression ciprofloxacin Adverse Reaction (Verified 05/21/20 13:59) Other Macrolide Antibiotics Adverse Reaction (Verified 05/21/20 13:59) Unknown Penicillins Adverse Reaction (Verified 05/21/20 13:59) Unknown adhesive tape Allergy (Uncoded 05/21/20 13:59) Itching Prior records reviewed: Yes Past Medical History: - - Reviewed in problem list Surgical History: - - 2002 aortic root surgery, tubal ligation, mitral and aortic valve replacements in May 2016. I&D right foot hematoma Lives: Spouse/ Significant Other Smoking Status: Never smoker Alcohol: None Drugs: None - Family History Maternal Family History: Family History (Last Reviewed 04/10/20 @ 15:[address] Dick Whelan MD) Father CAD (coronary artery disease) Hypertension Mother Sudden cardiac Hypertension Abdominal aortic aneurysm rupture Brother Hypertension Sister Hypertension Family History: Reports: - - asthma Paternal Family History: Family History (Last Reviewed 04/10/20 @ 15:[address] Dick Whelan MD) Father CAD (coronary artery disease) Hypertension Mother Sudden cardiac Hypertension Abdominal aortic aneurysm rupture Brother Hypertension Sister Hypertension Family History: Reports: Heart Disease - at 77, - - Obesity Sibling Family History: Family History (Last Reviewed 04/10/20 @ 15:[address] Dick Whelan MD) Father CAD (coronary artery disease) Hypertension Mother Sudden cardiac Hypertension Abdominal aortic aneurysm rupture Brother Hypertension Sister Hypertension Family History: Reports: COPD, Diabetes, High Cholesterol, Heart Disease, Hypertension, - - Obesity Offspring Family History: Family History (Last Reviewed 04/10/20 @ 15:[address] Dick Whelan MD) Father CAD (coronary artery disease) Hypertension Mother Sudden cardiac Hypertension Abdominal aortic aneurysm rupture Brother Hypertension Sister Hypertension Family History: Reports: Asthma, - - Fatty liver Review of Systems General: Denies: Chills, Fever, Sweats Eyes: Denies: Visual changes - bilaterally, Diplopia ENT: Denies: Rhinorrhea, Sore throat Cardiovascular: Denies: Chest pain, Palpitations Respiratory: Denies: Dyspnea, Cough, Dyspnea on exertion Gastrointestinal: Reports: Abdominal pain Genitourinary: Denies: Dysuria, Hematuria, Frequency Musculoskeletal: Denies: Back pain, Extremity Pain Skin: Reports: - - Right foot I&D with bloody dressing. Neurological: Denies: Headache, Weakness Psych: Denies: Depression, Anxiety Hematologic: Reports: Easy bleeding Physical Exam Vital Signs/Narrative: Vital Signs Temp Pulse Resp BP Pulse Ox 05/21/20 13:59 98.2 F 70 16 150/74 H 98 Inital Vital Signs reviewed: Yes General: Well nourished, No Acute Distress Head: Normocephalic, Atraumatic Eyes: Perrl, EOMI ENT: Moist mucous membranes Cardiovascular: Regular rate, Regular rhythm Respiratory: No distress, CTA bilaterally Extremities: - - Right foot I&D with bloody dressing. Minimal tenderness to palpation. Right foot neurovascular intact. Skin: Negative for: Normal color, No rash Neurological: Alert, Oriented x3 Psychological: Normal affect, Normal Mood Diagnostic/Tx/Re-eval Laboratory Data 02/15/21 02/15/21 15:00 15:00 WBC 8.0 RBC 4.14 L Hgb 12.8 Hct 39.6 MCV 95.7 MCH 30.9 MCHC 32.3 RDW Std Deviation 48.0 H RDW Coeff of Ham 13.7 Plt Count 273 MPV 10.3 Immature Gran % (Auto) 0.600 Neut % (Auto) 57.1 Lymph % (Auto) 28.5 [place] % (Auto) 9.9 Eos % (Auto) 3.5 Baso % (Auto) 0.4 Absolute Neuts (auto) 4.6 Absolute Lymphs (auto) 2.28 Nucleated RBC % 0 PT 37.7 H INR 3.9 H* - Medical Decision Making 60-year-old female presenting with postop bleeding of her right foot after having incision and drainage of a hematoma on her right foot after Dr. Fleming thought it was becoming infected. He did come to evaluate the patient and I had reinforced the dressing so that she would control the bleeding in the foot however she bled through this. After he made multiple attempts to stop the bleeding the patient and he felt more comfortable having her observed overnight. Her CBC shows her hemoglobin is stable. INR is supratherapeutic however at 3.9. We will withhold her Coumadin. Patient will be admitted in stable condition. Impression: 1. Postoperative bleeding ED Disposition - Plan for ED Patient: Disposition: Acute Care Hospital [facility]
[2020-05-21 15:18] LABS: Absolute Lymphocyte Count 2.28 X10^3/uL (0.83-4.51); Absolute Neutrophil Count 4.6 X10^3/uL (2.0-7.7); Basophil# 0.03 X10^3/uL; Basophil% 0.4 % (0-1); Eosinophil# 0.28 X10^3/uL; Eosinophils% 3.5 % (0-5); Hematocrit 39.6 % (37-47); Hemoglobin 12.8 g/dL (12.0-15.0); Lymphocyte # 2.28 X10^3/ul (4.0); Lymphocyte % 28.5 % (19-41); Mean Corp Hgb Conc 32.3 g/dL (32-36); Mean Corpuscular Hgb 30.9 pg (27.0-32.0); Mean Corpuscular Volume 95.7 fL (81-99); Mean Platelet Vol. 10.3 fl (6.2-12.0); Monocyte# 0.79 X10^3/uL; Monocyte% 9.9 % (0-10); NRBC Flagged by Analyzer 0 % (0-5); Neutrophil # 4.58 X10^3/uL (2.7-7.7); Neutrophil % 57.1 % (47-70); Platelet Count 273 K/mm3 (150-450); RBC Distribution Width CV 13.7 % (11.6-14.6); Red Blood Count 4.14 M/mm3 (4.2-5.4)
[2020-05-21 15:28] LABS: Prothrombin Time (Protime)PT. 37.7 SECONDS (11.7-14.9)
[2020-05-21 15:46] LABS: International Normalized Ratio 3.9
--- NOTE | 2020-05-21 16:21 | PCM.HP.STD ---
History of Present Illness Date of Admission: 05/21/20 Chief Complaint: Bleeding right foot The patient is a 60 year old female with history of diabetes, artifical heart valve on anticoagulation (Coumadin) and other medical problems presented to the ER today due to bleeding after receiving I+D for infected hematoma dorsal right foot. Patient noted to have significant bleeding from foot. ER called me, I saw patient in the ER. There was complete strikethrough on the dressing, we did have to change the dressing several times and eventually appeared to get the bleeding under controlled using gel foam. Patient's INR is 3.9. Patient is concerned about going home and recurrent bleeding. I agreed she should stay for observation on right foot for further bleeding. I also spoke with the medicine team, and will start Vitamin K to help with bleeding. Patient's H+H was checked and noted to be within normal limits. Also IV antibiotics will be started. Patient with no fever, chills, nausea, vomiting, shortness of breath, chest pain or any other symptoms at this time. Past Medical History Past Medical History (Chronic Problems): Chronic Problems (Last Reviewed 04/10/20 @ 15:[address] 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 Mitral valve replacement with 29-mm St[employer] Rob Mechanical prosthesis. Aortic valve replacement with a 19-mm On-X Mechanical prosthesis. 05/2016 Nonrheumatic aortic (valve) stenosis with insufficiency (Chronic) Nonrheumatic mitral valve insufficiency (Chronic) History of mitral valve replacement with mechanical valve (Chronic 05/13/16) History of mechanical aortic valve replacement (Chronic 05/13/16) Secondary pulmonary arterial hypertension (Chronic) Chronic diastolic (congestive) heart failure (Chronic) Left bundle branch block (Chronic) Essential (primary) hypertension (Chronic) HLD (hyperlipidemia) (Chronic) Obstructive sleep apnea (Chronic) Asthma (Chronic) Narcolepsy (Chronic) Endometrial cancer (Chronic) Robotic hysterectomy wit bilateral salpingo-oophorectomy and lymph node sampling 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 Mitral valve replacement with 29-mm St[employer] Rob Mechanical prosthesis. Aortic valve replacement with a 19-mm On-X Mechanical prosthesis. 05/2016 Nonrheumatic aortic (valve) stenosis with insufficiency (Chronic) I35.2 Nonrheumatic mitral valve insufficiency (Chronic) I34.0 Secondary pulmonary arterial hypertension (Chronic) I27.21 Chronic diastolic (congestive) heart failure (Chronic) I50.32 Left bundle branch block (Chronic) I44.7 Essential (primary) hypertension (Chronic) I10 HLD (hyperlipidemia) (Chronic) E78.5 Obstructive sleep apnea (Chronic) G47.33 Asthma (Chronic) J45.909 Narcolepsy (Chronic) G47.419 Endometrial cancer (Chronic) C54.1 Robotic hysterectomy wit bilateral salpingo-oophorectomy and lymph node sampling Allergic rhinitis J30.9 Morbid obesity E66.01 Obesity E66.9 Psoriasis L40.9 Subvalvar aortic stenosis Q24.4 History of bacterial endocarditis Z86.79 Bilateral pleural effusion J90 06/16 Streptococcal septicemia A40.9 Allergies clarithromycin [From Biaxin] Allergy (Severe, Verified 05/21/20 13:59) SOB, hives and swelling cephalexin [Cephalexin] Allergy (Verified 05/21/20 13:59) Rash simvastatin Allergy (Verified 05/21/20 13:59) Rash sulfamethoxazole Allergy (Verified 05/21/20 13:59) Rash trimethoprim Allergy (Verified 05/21/20 13:59) Rash bupropion Adverse Reaction (Severe, Verified 05/21/20 13:59) worsened depression ciprofloxacin Adverse Reaction (Verified 05/21/20 13:59) Other Macrolide Antibiotics Adverse Reaction (Verified 05/21/20 13:59) Unknown Penicillins Adverse Reaction (Verified 05/21/20 13:59) Unknown adhesive tape Allergy (Uncoded 05/21/20 13:59) Itching Home Medications: Ambulatory Orders Medication Instructions Recorded Aspirin [Aspirin, Baby] 81 mg PO DAILY@0800 05/30/16 Multivitamins,Therapeutic 1 tab PO DAILY 05/30/16 [Multivitamin] albuterol sulfate 90 mcg/actuation 1 inh INHALATION .COMPLEX 03/26/17 aerosol inhaler metoprolol tartrate 25 mg tablet 25 mg PO BID #180 tab 08/03/17 omeprazole 40 mg capsule,delayed 40 mg PO QDAY #90 cap 11/11/17 release warfarin 1 mg tablet 10 mg PO TUWE 30 Days #30 tab 02/08/18 loratadine 10 mg tablet 10 mg PO QDAY #30 tab 07/12/18 duloxetine 60 mg capsule,delayed 60 mg PO DAILY 07/20/18 release fluticasone propionate 50 2 spray INTRANASAL QDAY #1 device 01/04/19 mcg/actuation nasal spray,suspension potassium chloride 10 mEq 10 meq PO BID #60 cap 01/25/19 capsule,extended release metformin 500 mg tablet 250 mg PO DAILY tab 08/16/19 Pravastatin Sodium 20 mg PO QHS 10/18/19 torsemide 20 mg tablet 40 mg PO DAILY #180 tab 10/24/19 enoxaparin 120 mg/0.8 mL 120 mg SC Q12H #8 ml 01/11/20 subcutaneous syringe warfarin 2.5 mg tablet 2.5 mg PO .3XW #36 tab 04/19/20 warfarin 7.5 mg tablet 7.5 mg PO DAILY #90 tab 04/19/20 Surgical History: Surgical History (Last Reviewed 04/10/20 @ 15:[address] Dick Whelan MD) History of mitral valve replacement with mechanical valve (Chronic) Onset Date: 05/13/16 Z95.2 History of mechanical aortic valve replacement (Chronic) Onset Date: 05/13/16 Z95.2 H/O bilateral salpingo-oophorectomy Onset Date: 01/2020 Z90.79, Z90.722 HX venous access device placed History of robot-assisted laparoscopic hysterectomy Onset Date: 01/2020 Z90.710 History of tubal ligation Z98.51 Resection of subaortic membrane Onset Date: 2002 Surgical History: - - 2002 aortic root surgery, tubal ligation, mitral and aortic valve replacements in May 2016. I&D right foot hematoma Psychiatric History: No pertinent psych hx Lives: Spouse/ Significant Other Smoking Status: Never smoker Alcohol: None Drugs: None - *Family History Maternal Family History: Family History (Last Reviewed 04/10/20 @ 15:[address] Dick Whelan MD) Father CAD (coronary artery disease) Hypertension Mother Sudden cardiac Hypertension Abdominal aortic aneurysm rupture Brother Hypertension Sister Hypertension History Items: - - asthma Paternal Family History: Family History (Last Reviewed 04/10/20 @ 15:[address] Dick Whelan MD) Father CAD (coronary artery disease) Hypertension Mother Sudden cardiac Hypertension Abdominal aortic aneurysm rupture Brother Hypertension Sister Hypertension History Items: Heart Disease - at 77, - - Obesity Sibling Family History: Family History (Last Reviewed 04/10/20 @ 15:[address] Dick Whelan MD) Father CAD (coronary artery disease) Hypertension Mother Sudden cardiac Hypertension Abdominal aortic aneurysm rupture Brother Hypertension Sister Hypertension History Items: COPD, Diabetes, High Cholesterol, Heart Disease, Hypertension, - - Obesity Offspring Family History: Family History (Last Reviewed 04/10/20 @ 15:[address] Dick Whelan MD) Father CAD (coronary artery disease) Hypertension Mother Sudden cardiac Hypertension Abdominal aortic aneurysm rupture Brother Hypertension Sister Hypertension History Items: Asthma, - - Fatty liver Review of Systems Constitutional: Denies: Chills, Fever Gastrointestinal: Denies: Nausea, Vomiting VTE Information - Inpt Only VTE Present on Admission: Yes - Physical Exam Vitals/I&O's: Vital Signs Temp Pulse Resp BP Pulse Ox 98.2 F 70 16 150/74 H 98 05/21/20 13:59 05/21/20 13:59 05/21/20 13:59 05/21/20 13:59 05/21/20 13:59 Oxygen Delivery Method Room Air Weight: 118.6 kg Body Mass Index (BMI) 39.7 General: Alert, Oriented x3, Cooperative, No apparent distress Extremities: No cyanosis, Capillary Refill Less than 3 Seconds, No Calf Tenderness, - - s/p I+D dorsal forefoot hematoma with active bleeding, there is some cellulitis around the site, otherwise no necrosis, no maloder, no visible abscess, no ischemia noted to the right foot or ankle. Psych/Mental Status: Normal Affect, Appropriate, Alert and oriented to time, place, person, mood and affect Laboratory Results 05/21/20 15:00: WBC 8.0, RBC 4.14 L, Hgb 12.8, Hct 39.6, MCV 95.7, MCH 30.9, MCHC 32.3, RDW Std Deviation 48.0 H, RDW Coeff of Ham 13.7, Plt Count 273, MPV 10.3, Immature Gran % (Auto) 0.600, Neut % (Auto) 57.1, Lymph % (Auto) 28.5, [place] % (Auto) 9.9, Eos % (Auto) 3.5, Baso % (Auto) 0.4, Absolute Neuts (auto) 4.6, Absolute Lymphs (auto) 2.28, Nucleated RBC % 0 05/21/20 15:00: PT 37.7 H, INR 3.9 H* Current Medications Clindamycin Phosphate 600 mg/ (Dextrose) 54 mls @ 100 mls/hr IV Q8 [facility] Assessment/Plan All Active Problems (Last Reviewed 04/10/20 @ 15:[address] Dick Whelan MD) Dyspnea (Acute) Fatigue (Acute) SOB (shortness of breath) (Resolved) Infected hematoma dorsal right foot s/p I+D on 05/21/2020 with bleeding Elevated INR Diabetes Artificial heart valve (mitral valve) on Coumadin Patient was seen in the ER. There is slow bloody oozing from incision site. Initially surgicel was applied with overlying gauze, kerlix and chelsey for hemostasis, however continued slow active bleeding with strikethrough persisted. So switched to gel foam for hemostasis with overlying, gauze, kerlix and chelsey. Appears controlled at this time. INR elevated at 3.9, H+H within normal limits. Due to significant bleeding recommend overnight observation to monitor for any further bleeding from foot. Patient very agreeable to this. Clindamycin 600mg q 8 hours prescribed for infection component. Cultures have been obtained and are pending. Consult placed to medicine team, spoke with Dr. Saenz, greatly appreciate assistance.
[2020-05-21 16:48] VITALS: BP 149/70; PULSE 69; RESP 17; TEMP 36.8; O2SAT 96
--- NOTE | 2020-05-21 17:15 | PCM.PROGNOTE ---
<GadielMarcia BELT MOLDER - Last Filed: 05/21/20 17:24> Subjective: Patient seen and examined. Underwent I&D for infected hematoma this morning in podiatry office. Patient tolerated procedure well however later developed significant bleeding from right foot. She is on Coumadin for history of mitral and aortic valve replacement. She reports shooting pain of right foot. She is concerned about returning home due to ongoing right foot bleeding. Dressing was replaced in ER by podiatry and bleeding appears to have subsided. She has a past medical history of mitral and aortic valve replacement on anticoagulation with Coumadin, chronic diastolic CHF, hypertension, hyperlipidemia, ROYA, history of endometrial cancer. - Physical Exam Vitals/I&O's: Vital Signs Temp Pulse Resp BP Pulse Ox 98.2 F 69 17 149/70 H 96 05/21/20 16:48 05/21/20 16:48 05/21/20 16:48 05/21/20 16:48 05/21/20 16:48 Oxygen Delivery Method Room Air Weight: 261 lb 7.492 oz Body Mass Index (BMI) 39.7 General: Alert, Oriented x3, Cooperative HEENT: Atraumatic, PERRLA, EOMI, Normocephalic Neck: Supple, No JVD, Negative Carotid Bruits Lungs: Clear to auscultation, Normal air movement Cardiovascular: Regular rate, Regular Rhythm Abdomen: Bowel Sounds Present, Soft, Non Tender, Non-Distended Extremities: No clubbing, No cyanosis, No edema, Capillary Refill Less than 3 Seconds Skin: No rashes, No breakdown, - - Right foot dressing intact Musculoskeletal: No Tenderness to Palpation of Joints or Extremities Neurological: Cranial nerves II-XII grossly intact, Neuro grossly intact Psych/Mental Status: Normal Affect, Appropriate Laboratory Results 05/21/20 15:00: WBC 8.0, RBC 4.14 L, Hgb 12.8, Hct 39.6, MCV 95.7, MCH 30.9, MCHC 32.3, RDW Std Deviation 48.0 H, RDW Coeff of Ham 13.7, Plt Count 273, MPV 10.3, Immature Gran % (Auto) 0.600, Neut % (Auto) 57.1, Lymph % (Auto) 28.5, [place] % (Auto) 9.9, Eos % (Auto) 3.5, Baso % (Auto) 0.4, Absolute Neuts (auto) 4.6, Absolute Lymphs (auto) 2.28, Nucleated RBC % 0 05/21/20 15:00: PT 37.7 H, INR 3.9 H* Current Medications Clindamycin Phosphate 600 mg/ (Dextrose) 54 mls @ 100 mls/hr IV Q8 [facility] Medical Necessity - Tobacco Use Smoking Status: Never smoker Assessment/Plan All Active Problems (Last Reviewed 04/10/20 @ 15:[address] Dick Whelan MD) Dyspnea (Acute) Fatigue (Acute) SOB (shortness of breath) (Resolved) 1. Infected hematoma dorsal right foot status post I&D 05/21/2020-complicated by ongoing bleeding secondary to Coumadin use. Coumadin on hold. Vitamin K x1. Trend INR. Dressing changes per podiatry orders. IV clindamycin. 2. Mitral and aortic valve replacement on anticoagulation with Coumadin-Coumadin on hold. P.o. vitamin K x1. Trend INR. 3. Chronic diastolic CHF-stable, continue torsemide. 4. Hypertension-stable, continue metoprolol. 5. Hyperlipidemia-continue statin. 6. ROYA-continue home Pap regimen. 7. History of endometrial cancer-in remission DVT prophylaxis-Coumadin on hold This patient was seen by ORCK Yates under the supervision of Dr. Saenz. <Vimal Saenz F - Last Filed: 05/21/20 17:44> - Physical Exam Vitals/I&O's: Vital Signs Temp Pulse Resp BP Pulse Ox 97.7 F L 80 16 135/67 H 100 05/21/20 17:28 05/21/20 17:28 05/21/20 17:28 05/21/20 17:28 05/21/20 17:28 Oxygen Delivery Method Room Air Weight: 259 lb 3.2 oz Body Mass Index (BMI) 39.4 Laboratory Results 05/21/20 15:00: WBC 8.0, RBC 4.14 L, Hgb 12.8, Hct 39.6, MCV 95.7, MCH 30.9, MCHC 32.3, RDW Std Deviation 48.0 H, RDW Coeff of Ham 13.7, Plt Count 273, MPV 10.3, Immature Gran % (Auto) 0.600, Neut % (Auto) 57.1, Lymph % (Auto) 28.5, [place] % (Auto) 9.9, Eos % (Auto) 3.5, Baso % (Auto) 0.4, Absolute Neuts (auto) 4.6, Absolute Lymphs (auto) 2.28, Nucleated RBC % 0 05/21/20 15:00: PT 37.7 H, INR 3.9 H* Current Medications Dextrose (Dextrose 50%-Water 25 Gm/50 Ml Disp.Syrin) 0 gm IV X1 PRN; Protocol PRN Reason: Hypoglycemia Docusate Sodium (Docusate Sodium 100 Mg Capsule) 100 mg PO QHS [facility] Duloxetine HCl (Duloxetine Hcl 60 Mg Capsule) 60 mg PO DAILY [facility] Fluticasone Propionate (Fluticasone 0.05% 1 [place] Nasal.Sry) 2 spray NASAL QDAY [facility] Glucagon (Glucagon 1 Mg/Ml Syringe) 1 mg IM .X1 PRN PRN Reason: Hypoglycemia Clindamycin Phosphate 600 mg/ (Dextrose) 54 mls @ 100 mls/hr IV Q8H [place] Influenza Virus Vaccine Quadrival (Influenza Vaccine (6mos+)/Pf 0.5 Ml Syringe) 0.5 ml IM .ONCE ONE Stop: 05/21/20 17:36 Insulin Human Lispro (Insulin Lispro 100 Unit/Ml Insuln.Pen) 0 unit SC ACHS [facility]; Protocol Loratadine (Loratadine 10 Mg Tablet) 10 mg PO DAILY [facility] Metoprolol Tartrate (Metoprolol Tartrate 25 Mg Tablet) 25 mg PO BID [facility] Non-Formulary Medication (Omeprazole) 40 mg PO DAILY [facility] Non-Formulary Medication (Potassium Chloride [Klor-Con M20]) 40 meq PO DAILY [facility] Phytonadione (Phytonadione (Vit K1) 5 Mg Tablet) 5 mg PO X1 ONE Stop: 05/21/20 17:36 Pravastatin Sodium (Pravastatin 40 Mg Tablet) 20 mg PO QHS [facility] Sodium Chloride (0.9% Saline Lock 10 Ml Syringe) 10 - 40 ml IV UD PRN PRN Reason: SALINE FLUSH Torsemide (Torsemide 20 Mg Tablet) 40 mg PO DAILY [facility] Addendum: Dr. Saenz I personally examined the patient and reviewed the chart. I agree with the above. 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 It caused a hematoma which was evaluated today in the office and it was drained and a culture was sent. However because of her INR being elevated to over 3-1/2 secondary to her mitral valve replacement, she had continuous oozing and podiatry was concerned and asked her to come to the ER. Currently it is dressed and does not appear to be oozing around the dressing, because of her supratherapeutic INR will provide her with 5 mg of vitamin K p.o. and recheck INR in the morning and hold her Coumadin. Given that her mitral valve has been replaced with mechanical valve, will be cautious with how low we get her INR and will probably restart her Coumadin when her INR is around 2 if possible possible, assuming bleeding has stopped. OBSV E&M: [id number] Subsequent observation care L3
[2020-05-21 17:28] VITALS: BP 135/67; PULSE 80; RESP 16; TEMP 36.5; O2SAT 100; BMI 39.4
[2020-05-21 17:36] VITALS: BMI 39.4
[2020-05-21] MEDS: Phytonadione (Vit K1) 5 MG TABLET PO (18:31)
[2020-05-21 20:00] VITALS: RESP 16; O2SAT 96
[2020-05-21 20:31] VITALS: BP 145/71; PULSE 79; RESP 18; TEMP 36.7; O2SAT 95
[2020-05-21] MEDS: Morphine 2 MG/ML Syringe IV (20:55)
[2020-05-21] MEDS: 0.9% Saline Lock 10 ML Syringe IV (20:55)
[2020-05-21] MEDS: Docusate Sodium 100 MG Capsule PO (22:18)
[2020-05-21 22:19] VITALS: BP 145/71; PULSE 79
[2020-05-21] MEDS: Pravastatin 20 MG Tablet PO (22:19)
[2020-05-21] MEDS: Metoprolol Tartrate 25 MG Tablet PO (22:19)
[2020-05-21 22:26] LABS: Bedside Glucose 129 mg/dL (70-110)
[2020-05-22] VITALS (7 sets, daily range): BP systolic 135–144; BP diastolic 59–67; PULSE 64–80; RESP 18; TEMP 36.7–36.9; O2SAT 92–98
[2020-05-22] MEDS: 0.9% Saline Lock 10 ML Syringe IV ×5 (03:21→23:22)
[2020-05-22] MEDS: Morphine 2 MG/ML Syringe IV (03:21)
[2020-05-22 06:07] LABS: Absolute Lymphocyte Count 2.21 X10^3/uL (0.83-4.51); Basophil# 0.03 X10^3/uL; Basophil% 0.4 % (0-1); Eosinophil# 0.25 X10^3/uL; Eosinophils% 3.4 % (0-5); Hematocrit 35.8 % (37-47); Hemoglobin 11.4 g/dL (12.0-15.0); Lymphocyte # 2.21 X10^3/ul (4.0); Lymphocyte % 30.4 % (19-41); Mean Corp Hgb Conc 31.8 g/dL (32-36); Mean Corpuscular Hgb 30.6 pg (27.0-32.0); Mean Platelet Vol. 10.5 fl (6.2-12.0); Monocyte# 0.72 X10^3/uL; Monocyte% 9.9 % (0-10); NRBC Flagged by Analyzer 0 % (0-5); Neutrophil # 4.03 X10^3/uL (2.7-7.7); Neutrophil % 55.6 % (47-70); Platelet Count 250 K/mm3 (150-450); RBC Distribution Width CV 13.7 % (11.6-14.6); RBC Distribution Width SD 48.5 fl (35.1-43.9); Red Blood Count 3.73 M/mm3 (4.2-5.4); White Blood Count 7.3 K/mm3 (4.4-11.0)
[2020-05-22 06:15] LABS: International Normalized Ratio 2.5; Prothrombin Time (Protime)PT. 26.6 SECONDS (11.7-14.9)
[2020-05-22 06:30] LABS: Anion Gap 4 (5-15); BUN 18 mg/dL (7-18); BUN/Creat Ratio 24.9 RATIO (10-20); Calcium,Total 8.2 mg/dL (8.5-10.1); Chloride 102 mmol/L (98-107); Creatinine, Serum 0.72 mg/dL (0.55-1.02); EST Glomerular Filtration Rate 88 mL/min (>60); Est Glom Filt Rate - Afr Amer 107 mL/min (>60); Estimated Creatinine Clearance 85.91 ml/min; Glucose 129 mg/dL (74-106); Potassium 3.9 mmol/L (3.5-5.1); Sodium Level 136 mmol/L (136-145)
[2020-05-22 06:55] LABS: Bedside Glucose 124 mg/dL (70-110)
[2020-05-22] MEDS: Potassium Chloride Oral Tablet 20 MEQ 40 MEQ PO (08:38)
[2020-05-22] MEDS: Loratadine 10 MG Tablet PO (08:39)
[2020-05-22] MEDS: Multivitamins,Therapeutic Tablet 1 TABLET PO (08:39)
[2020-05-22] MEDS: Furosemide 80 MG Tablet PO (08:39)
[2020-05-22] MEDS: Docusate Sodium 100 MG Capsule PO (08:39)
[2020-05-22] MEDS: Metoprolol Tartrate 25 MG Tablet PO ×2 (08:39→23:26)
[2020-05-22] MEDS: Pantoprazole Sodium 40 MG Tablet PO (08:40)
[2020-05-22] MEDS: DULoxetine Hcl 60 MG Capsule PO (08:40)
--- NOTE | 2020-05-22 10:40 | PCM.PROGNOTE ---
<Marcia Ramesh SHIP RUNNER - Last Filed: 05/22/20 10:50> Subjective: Patient seen and examined. Patient has not required further dressing changes of right foot wound overnight, bleeding appears stabilized. Right foot pain improved. - Physical Exam Vitals/I&O's: Vital Signs Temp Pulse Resp BP Pulse Ox 98.4 F 80 18 138/67 H 97 05/22/20 08:30 05/22/20 08:39 05/22/20 08:30 05/22/20 08:30 05/22/20 08:30 Oxygen Flow Rate (L/min) 2 Oxygen Delivery Method Room Air Weight: 259 lb 3.2 oz Body Mass Index (BMI) 39.4 Intake and Output for Last 24 Hours 05/20/20 05/21/20 05/22/20 23:59 23:59 23:59 Intake Total 1104 / 1104 654 / 654 Output Total 200 / 200 200 / 200 Balance 904 / 904 454 / 454 General: Alert, Oriented x3, Cooperative HEENT: Atraumatic, PERRLA, EOMI, Normocephalic Neck: Supple, No JVD, Negative Carotid Bruits Lungs: Clear to auscultation, Normal air movement Cardiovascular: Regular rate, Regular Rhythm Abdomen: Bowel Sounds Present, Soft, Non Tender, Non-Distended Extremities: No clubbing, No cyanosis, No edema, Capillary Refill Less than 3 Seconds Skin: - - Right foot dressing intact Musculoskeletal: No Tenderness to Palpation of Joints or Extremities Neurological: Cranial nerves II-XII grossly intact, Neuro grossly intact Psych/Mental Status: Normal Affect, Appropriate Laboratory Results 05/21/20 15:00: WBC 8.0, RBC 4.14 L, Hgb 12.8, Hct 39.6, MCV 95.7, MCH 30.9, MCHC 32.3, RDW Std Deviation 48.0 H, RDW Coeff of Ham 13.7, Plt Count 273, MPV 10.3, Immature Gran % (Auto) 0.600, Neut % (Auto) 57.1, Lymph % (Auto) 28.5, Waldo % (Auto) 9.9, Eos % (Auto) 3.5, Baso % (Auto) 0.4, Absolute Neuts (auto) 4.6, Absolute Lymphs (auto) 2.28, Nucleated RBC % 0 05/21/20 15:00: PT 37.7 H, INR 3.9 H* 05/21/20 22:17: POC Glucose 129 H 05/22/20 05:40: WBC 7.3, RBC 3.73 L, Hgb 11.4 L, Hct 35.8 L, MCV 96.0, MCH 30.6, MCHC 31.8 L, RDW Std Deviation 48.5 H, RDW Coeff of Ham 13.7, Plt Count 250, MPV 10.5, Immature Gran % (Auto) 0.300, Neut % (Auto) 55.6, Lymph % (Auto) 30.4, Waldo % (Auto) 9.9, Eos % (Auto) 3.4, Baso % (Auto) 0.4, Absolute Neuts (auto) 4.0, Absolute Lymphs (auto) 2.21, Nucleated RBC % 0 05/22/20 05:40: PT 26.6 H, INR 2.5 05/22/20 05:40: Sodium 136, Potassium 3.9, Chloride 102, Carbon Dioxide 30.0, Anion Gap 4 L, BUN 18, Creatinine 0.72, Estim Creat Clear Calc 85.91, Est GFR (MDRD) Af Amer 107, Est GFR (MDRD) Non-Af 88, BUN/Creatinine Ratio 24.9 H, Glucose 129 H, Calcium 8.2 L 05/22/20 06:48: POC Glucose 124 H Current Medications Dextrose (Dextrose 50%-Water 25 Gm/50 Ml Disp.Syrin) 0 gm IV X1 PRN; Protocol PRN Reason: Hypoglycemia Docusate Sodium (Docusate Sodium 100 Mg Capsule) 100 mg PO QHS REPLACED BY [facility] Last Admin: 05/22/20 08:39 Dose: 100 mg Documented by: Duloxetine HCl (Duloxetine Hcl 60 Mg Capsule) 60 mg PO DAILY REPLACED BY [facility] Last Admin: 05/22/20 08:40 Dose: 60 mg Documented by: Fluticasone Propionate (Fluticasone 0.05% 1 [place] Nasal.Sry) 2 spray NASAL DAILY REPLACED BY [facility] Furosemide (Furosemide 80 Mg Tablet) 80 mg PO DAILY REPLACED BY [facility] Last Admin: 05/22/20 08:39 Dose: 80 mg Documented by: Glucagon (Glucagon 1 Mg/Ml Syringe) 1 mg IM .X1 PRN PRN Reason: Hypoglycemia Clindamycin Phosphate 600 mg/ (Dextrose) 54 mls @ 100 mls/hr IV Q8 REPLACED BY [facility] Last Infusion: 05/22/20 06:18 Dose: Infused Documented by: Insulin Human Lispro (Insulin Lispro 100 Unit/Ml Insuln.Pen) 0 unit SC ACHS REPLACED BY [facility]; Protocol Last Admin: 05/22/20 06:48 Dose: Not Given Documented by: Loratadine (Loratadine 10 Mg Tablet) 10 mg PO DAILY REPLACED BY [facility] Last Admin: 05/22/20 08:39 Dose: 10 mg Documented by: Metoprolol Tartrate (Metoprolol Tartrate 25 Mg Tablet) 25 mg PO BID REPLACED BY [facility] Last Admin: 05/22/20 08:39 Dose: 25 mg Documented by: Morphine Sulfate (Morphine 2 Mg/Ml Syringe) 2 mg IV Q4H PRN PRN PRN Reason: pain 6-10 Last Admin: 05/22/20 03:21 Dose: 2 mg Documented by: Multivitamins ([facility]it[facility],Therapeutic Tablet) [facility] Last Admin: 05/22/20 08:39 Dose: 1 tablet Documented by: Pantoprazole Sodium (Pantoprazole Sodium 40 Mg Tablet) 40 mg PO DAILY REPLACED BY [facility] Last Admin: 05/22/20 08:40 Dose: 40 mg Documented by: Potassium Chloride (Potassium Chloride Oral Tablet 20 Meq) [facility] meq [facility] Last Admin: 05/22/20 08:38 Dose: 40 meq Documented by: Pravastatin Sodium (Pravastatin 20 Mg Tablet) 20 mg PO QHS REPLACED BY [facility] Last Admin: 05/21/20 22:19 Dose: 20 mg Documented by: Sodium Chloride (0.9% Saline Lock 10 Ml Syringe) 10 - 40 ml IV UD PRN PRN Reason: SALINE FLUSH Last Admin: 05/22/20 05:45 Dose: 10 ml Documented by: Medical Necessity - Tobacco Use Smoking Status: Never smoker Tobacco Use: Non-smoker Assessment/Plan All Active Problems (Last Reviewed 04/10/20 @ 15:[address] Dick Whelan MD) Dyspnea (Acute) Fatigue (Acute) SOB (shortness of breath) (Resolved) 1. Infected hematoma dorsal right foot status post I&D 05/21/2020-complicated by ongoing bleeding secondary to Coumadin use. Patient received vitamin K 5 mg x 1. INR 2.5 this morning. Dressing changes per podiatry orders. IV clindamycin. If bleeding has continued to remain stable, recommend resuming home Coumadin regimen with further outpatient INR trend. 2. Mitral and aortic valve replacement on anticoagulation with Coumadin-recommend resuming Coumadin if okay per podiatry as noted above. 3. Chronic diastolic CHF-stable, continue torsemide. 4. Hypertension-stable, continue metoprolol. 5. Hyperlipidemia-continue statin. 6. ROYA-continue home Pap regimen. 7. History of endometrial cancer-in remission DVT prophylaxis-Coumadin This patient was seen by R[facility] Yates under the supervision of Dr. Escobar. <Georgina Escobar - Last Filed: 05/22/20 14:26> - Physical Exam Vitals/I&O's: Vital Signs Temp Pulse Resp BP Pulse Ox 98.4 F 80 18 138/67 H 97 05/22/20 08:30 05/22/20 08:39 05/22/20 08:30 05/22/20 08:30 05/22/20 08:30 Oxygen Flow Rate (L/min) 2 Oxygen Delivery Method Room Air Weight: 117.571 kg Body Mass Index (BMI) 39.4 Intake and Output for Last 24 Hours 05/20/20 05/21/20 05/22/20 23:59 23:59 23:59 Intake Total 1104 / 1104 708 / 708 Output Total 200 / 200 1400 / 1400 Balance 904 / 904 -692 / -692 Laboratory Results 05/21/20 15:00: WBC 8.0, RBC 4.14 L, Hgb 12.8, Hct 39.6, MCV 95.7, MCH 30.9, MCHC 32.3, RDW Std Deviation 48.0 H, RDW Coeff of Ham 13.7, Plt Count 273, MPV 10.3, Immature Gran % (Auto) 0.600, Neut % (Auto) 57.1, Lymph % (Auto) 28.5, Waldo % (Auto) 9.9, Eos % (Auto) 3.5, Baso % (Auto) 0.4, Absolute Neuts (auto) 4.6, Absolute Lymphs (auto) 2.28, Nucleated RBC % 0 05/21/20 15:00: PT 37.7 H, INR 3.9 H* 05/21/20 22:17: POC Glucose 129 H 05/22/20 05:40: WBC 7.3, RBC 3.73 L, Hgb 11.4 L, Hct 35.8 L, MCV 96.0, MCH 30.6, MCHC 31.8 L, RDW Std Deviation 48.5 H, RDW Coeff of Ham 13.7, Plt Count 250, MPV 10.5, Immature Gran % (Auto) 0.300, Neut % (Auto) 55.6, Lymph % (Auto) 30.4, Waldo % (Auto) 9.9, Eos % (Auto) 3.4, Baso % (Auto) 0.4, Absolute Neuts (auto) 4.0, Absolute Lymphs (auto) 2.21, Nucleated RBC % 0 05/22/20 05:40: PT 26.6 H, INR 2.5 05/22/20 05:40: Sodium 136, Potassium 3.9, Chloride 102, Carbon Dioxide 30.0, Anion Gap 4 L, BUN 18, Creatinine 0.72, Estim Creat Clear Calc 85.91, Est GFR (MDRD) Af Amer 107, Est GFR (MDRD) Non-Af 88, BUN/Creatinine Ratio 24.9 H, Glucose 129 H, Calcium 8.2 L 05/22/20 06:48: POC Glucose 124 H 05/22/20 10:47: POC Glucose 171 H Current Medications Acetaminophen (Acetaminophen 325 Mg Tablet) 650 mg PO Q6H PRN PRN PRN Reason: Pain Score 1-10 Dextrose (Dextrose 50%-Water 25 Gm/50 Ml Disp.Syrin) 0 gm IV X1 PRN; Protocol PRN Reason: Hypoglycemia Docusate Sodium (Docusate Sodium 100 Mg Capsule) 100 mg PO QHS REPLACED BY [facility] Last Admin: 05/22/20 08:39 Dose: 100 mg Documented by: Duloxetine HCl (Duloxetine Hcl 60 Mg Capsule) 60 mg PO DAILY REPLACED BY [facility] Last Admin: 05/22/20 08:40 Dose: 60 mg Documented by: Fluticasone Propionate (Fluticasone 0.05% 1 [place] Nasal.Sry) 2 spray NASAL DAILY REPLACED BY [facility] Last Admin: 05/22/20 10:49 Dose: 2 sprays Documented by: Furosemide (Furosemide 80 Mg Tablet) 80 mg PO DAILY REPLACED BY [facility] Last Admin: 05/22/20 08:39 Dose: 80 mg Documented by: Glucagon (Glucagon 1 Mg/Ml Syringe) 1 mg IM .X1 PRN PRN Reason: Hypoglycemia Clindamycin Phosphate 600 mg/ (Dextrose) 54 mls @ 100 mls/hr IV Q8 REPLACED BY [facility] Last Infusion: 05/22/20 14:16 Dose: Infused Documented by: Insulin Human Lispro (Insulin Lispro 100 Unit/Ml Insuln.Pen) 0 unit SC ACHS REPLACED BY [facility]; Protocol Last Admin: 05/22/20 10:57 Dose: 2 units Documented by: Loratadine (Loratadine 10 Mg Tablet) 10 mg PO DAILY REPLACED BY [facility] Last Admin: 05/22/20 08:39 Dose: 10 mg Documented by: Metoprolol Tartrate (Metoprolol Tartrate 25 Mg Tablet) 25 mg PO BID REPLACED BY [facility] Last Admin: 05/22/20 08:39 Dose: 25 mg Documented by: Morphine Sulfate (Morphine 2 Mg/Ml Syringe) 2 mg IV Q4H PRN PRN PRN Reason: pain 6-10 Last Admin: 05/22/20 03:21 Dose: 2 mg Documented by: Multivitamins ([facility]ivitamins,Therapeutic Tablet) [facility] Last Admin: 05/22/20 08:39 Dose: 1 tablet Documented by: Oxycodone HCl (Oxycodone 5 Mg Tablet) 5 mg PO Q6H PRN PRN PRN Reason: Pain Score 4-10 Pantoprazole Sodium (Pantoprazole Sodium 40 Mg Tablet) 40 mg PO DAILY REPLACED BY [facility] Last Admin: 05/22/20 08:40 Dose: 40 mg Documented by: Potassium Chloride (Potassium Chloride Oral Tablet 20 Meq) [facility] meq [facility] Last Admin: 05/22/20 08:38 Dose: 40 meq Documented by: Pravastatin Sodium (Pravastatin 20 Mg Tablet) 20 mg PO QHS REPLACED BY [facility] Last Admin: 05/21/20 22:19 Dose: 20 mg Documented by: Sodium Chloride (0.9% Saline Lock 10 Ml Syringe) 10 - 40 ml IV UD PRN PRN Reason: SALINE FLUSH Last Admin: 05/22/20 13:40 Dose: 10 ml Documented by: Warfarin Sodium (Warfarin 2.5 Mg Tablet) 2.5 mg PO WeTh@1700 [place] Warfarin Sodium (Warfarin 7.5 Mg Tablet) 7.5 mg PO DAILY@1700 REPLACED BY [facility] Assessment/Plan This patient was seen in conjunction with Marcia Ramesh NP. I have independently interviewed and examined the patient and reviewed pertinent historical, laboratory, and other data. Please refer to her note for patient's presentation, findings, and recommendations. Patient was seen and examined. Discussed with furniture dipper at the bedside. Wound dressing is still relatively soaked to the gauze underneath the outer Rios bandage layer. Patient admits that her pain is controlled. She does not have enough support at home as her works and she has 2 autistic children. Discharge planning the works for discharge to senior living facility No acute events overnight. INR this morning is 2.5 Vitals were reviewed -stable Physical Exam: Gen: Comfortable, not pale, not jaundiced, alert oriented x3 CVS:HS I +II, regular, no murmurs RESP: CTA GI: BS present and normal, nontender, no palpable organs EXT:No edema, right foot is dressed, elevated on pillows. Labs reviewed: ASSESSMENT: 1. Acute post-op wound bleeding 2. Acute infected hematoma status post I & D on 3. Supratherapeutic INR 4. Status post mitral and aortic valve replacement 5. Chronic diastolic CHF 6. Hypertension 7. Hyperlipidemia 8. ROYA Meds reviewed Plan: We will resume Coumadin Repeat INR in a.m. Follow-up on wound cultures on 05/21/20 Continue on IV clindamycin Repeat blood work in a.m. Inpatient E&M: [id number] [facility] H[facility] L3
[2020-05-22] MEDS: Fluticasone 0.05% 1 SPRAY NASAL.SRY 2 SPRAY NASAL (10:49)
[2020-05-22 10:55] LABS: Bedside Glucose 171 mg/dL (70-110)
[2020-05-22] MEDS: Insulin Lispro 100 UNIT/ML INSULN.PEN SC (10:57)
--- NOTE | 2020-05-22 11:17 | PN_ITS ---
Subjective: Patient was seen today for follow up on right foot. No strikethrough on outer layer of bandage. No complaints of fever, chills, nausea or vomiting. She is resting in bed with right foot elevated. She is concerned about going home, does not feel she will be able to properly take care of foot, and very worried about further bleeding and other issues. Her works all day, and she has two autistic children. - Physical Exam Vitals/I&O's: Vital Signs Temp Pulse Resp BP Pulse Ox 98.4 F 80 18 138/67 H 97 05/22/20 08:30 05/22/20 08:39 05/22/20 08:30 05/22/20 08:30 05/22/20 08:30 Oxygen Flow Rate (L/min) 2 Oxygen Delivery Method Room Air Weight: 117.571 kg Body Mass Index (BMI) 39.4 Intake and Output for Last 24 Hours 05/20/20 05/21/20 05/22/20 23:59 23:59 23:59 Intake Total 1104 / 1104 654 / 654 Output Total 200 / 200 200 / 200 Balance 904 / 904 454 / 454 General: Alert, Oriented x3, Cooperative, No apparent distress Extremities: Capillary Refill Less than 3 Seconds, No Calf Tenderness, - - There is no strikethrough on outer layer of right foot bandage, but noted to be dried blood strikethrough on gauze layer just underneath chelsey dressing. Patient able to move toes and foot - there is some pain - right foot. Normal temp to toes, right foot. Laboratory Results 05/21/20 15:00: WBC 8.0, RBC 4.14 L, Hgb 12.8, Hct 39.6, MCV 95.7, MCH 30.9, MCHC 32.3, RDW Std Deviation 48.0 H, RDW Coeff of Ham 13.7, Plt Count 273, MPV 10.3, Immature Gran % (Auto) 0.600, Neut % (Auto) 57.1, Lymph % (Auto) 28.5, Bent % (Auto) 9.9, Eos % (Auto) 3.5, Baso % (Auto) 0.4, Absolute Neuts (auto) 4.6, Absolute Lymphs (auto) 2.28, Nucleated RBC % 0 05/21/20 15:00: PT 37.7 H, INR 3.9 H* 05/21/20 22:17: POC Glucose 129 H 05/22/20 05:40: WBC 7.3, RBC 3.73 L, Hgb 11.4 L, Hct 35.8 L, MCV 96.0, MCH 30.6, MCHC 31.8 L, RDW Std Deviation 48.5 H, RDW Coeff of Ham 13.7, Plt Count 250, MPV 10.5, Immature Gran % (Auto) 0.300, Neut % (Auto) 55.6, Lymph % (Auto) 30.4, Bent % (Auto) 9.9, Eos % (Auto) 3.4, Baso % (Auto) 0.4, Absolute Neuts (auto) 4.0, Absolute Lymphs (auto) 2.21, Nucleated RBC % 0 05/22/20 05:40: PT 26.6 H, INR 2.5 05/22/20 05:40: Sodium 136, Potassium 3.9, Chloride 102, Carbon Dioxide 30.0, Anion Gap 4 L, BUN 18, Creatinine 0.72, Estim Creat Clear Calc 85.91, Est GFR (MDRD) Af Amer 107, Est GFR (MDRD) Non-Af 88, BUN/Creatinine Ratio 24.9 H, Glucose 129 H, Calcium 8.2 L 05/22/20 06:48: POC Glucose 124 H 05/22/20 10:47: POC Glucose 171 H Current Medications Acetaminophen (Acetaminophen 325 Mg Tablet) 650 mg PO Q6H PRN PRN PRN Reason: Pain Score 1-10 Dextrose (Dextrose 50%-Water 25 Gm/50 Ml Disp.Syrin) 0 gm IV X1 PRN; Protocol PRN Reason: Hypoglycemia Docusate Sodium (Docusate Sodium 100 Mg Capsule) 100 mg PO QHS [facility] Last Admin: 05/22/20 08:39 Dose: 100 mg Documented by: Duloxetine HCl (Duloxetine Hcl 60 Mg Capsule) 60 mg PO DAILY [facility] Last Admin: 05/22/20 08:40 Dose: 60 mg Documented by: Fluticasone Propionate (Fluticasone 0.05% 1 [place] Nasal.Sry) 2 spray NASAL DAILY [facility] Last Admin: 05/22/20 10:49 Dose: 2 sprays Documented by: Furosemide (Furosemide 80 Mg Tablet) 80 mg PO DAILY [facility] Last Admin: 05/22/20 08:39 Dose: 80 mg Documented by: Glucagon (Glucagon 1 Mg/Ml Syringe) 1 mg IM .X1 PRN PRN Reason: Hypoglycemia Clindamycin Phosphate 600 mg/ (Dextrose) 54 mls @ 100 mls/hr IV Q8 [facility] Last Infusion: 05/22/20 06:18 Dose: Infused Documented by: Insulin Human Lispro (Insulin Lispro 100 Unit/Ml Insuln.Pen) 0 unit SC ACHS [facility]; Protocol Last Admin: 05/22/20 10:57 Dose: 2 units Documented by: Loratadine (Loratadine 10 Mg Tablet) 10 mg PO DAILY [facility] Last Admin: 05/22/20 08:39 Dose: 10 mg Documented by: Metoprolol Tartrate (Metoprolol Tartrate 25 Mg Tablet) 25 mg PO BID [facility] Last Admin: 05/22/20 08:39 Dose: 25 mg Documented by: Morphine Sulfate (Morphine 2 Mg/Ml Syringe) 2 mg IV Q4H PRN PRN PRN Reason: pain 6-10 Last Admin: 05/22/20 03:21 Dose: 2 mg Documented by: Multivitamins (Multivitamins,Therapeutic Tablet) [facility] Last Admin: 05/22/20 08:39 Dose: 1 tablet Documented by: Oxycodone HCl (Oxycodone 5 Mg Tablet) 5 mg PO Q6H PRN PRN PRN Reason: Pain Score 4-10 Pantoprazole Sodium (Pantoprazole Sodium 40 Mg Tablet) 40 mg PO DAILY [facility] Last Admin: 05/22/20 08:40 Dose: 40 mg Documented by: Potassium Chloride (Potassium Chloride Oral Tablet 20 Meq) [facility]q [facility] Last Admin: 05/22/20 08:38 Dose: 40 meq Documented by: Pravastatin Sodium (Pravastatin 20 Mg Tablet) 20 mg PO QHS [facility] Last Admin: 05/21/20 22:19 Dose: 20 mg Documented by: Sodium Chloride (0.9% Saline Lock 10 Ml Syringe) 10 - 40 ml IV UD PRN PRN Reason: SALINE FLUSH Last Admin: 05/22/20 05:45 Dose: 10 ml Documented by: Medical Necessity - Tobacco Use Smoking Status: Never smoker Tobacco Use: Non-smoker Assessment/Plan All Active Problems (Last Reviewed 04/10/20 @ 15:[address] Dick Whelan MD) Dyspnea (Acute) Fatigue (Acute) SOB (shortness of breath) (Resolved) Infected hematoma dorsal right foot s/p I+D on 05/21/2020 with bleeding - hemo stasis achieved at this time Elevated INR - down to 2.5 today Diabetes Artificial heart valve (mitral valve) on Coumadin Hemostasis maintained to the right foot today, I did not remove the entire ban dage as do not want to initiate further bleeding. There was noted to be some strikethrough on gauze just underneath the outer chelsey bandage layer. Ok to resume Coumadin. Keep foot elevated, no weightbearing right foot. Continue with Clindamycin 600mg q 8 hours. Cultures have been obtained and are pending. Pain management: Morphine, Oxyir, Tylenol. Medicine team on consult, spoke with Dr. Escobar today, greatly appreciate assistance. Discussed nursing facility placement with patient.
--- NOTE | 2020-05-22 11:33 | CASEMGMT ---
Addendum entered by Latosha Saunders 05/22/20 12:11: SW did update DPM that COVID test will be needed, charge nurse updated as well. Original Note: Social Work Assessment Referral Date: 05/22/2020 Date of Assessment: 05/22/2020 Reason for consult: SNF placement Informant: MD Personal Status: SW met with pt to complete initial assessment. Pt is alert and orientated x3. SW introduced self and role at [facility]. Living Arrangements: Pt state she lives with her family in a two story home with two steps to enter from the back PCP: Vidhi Hooks [facility] Pharmacy: [facility] [place] DME: [facility] through [facility] ADLs: Pt states was previously independent, states before her foot surgery she was able to drive HHC: Pt states she used to have HHC through [facility] [facility] SNF: Pt denied Substance Abuse Hx: Pt denied Mental Health Hx: Pt states slight depression and little bit of anxiety. Pt states she is prescribed medication. Pt denied any history and denied any current suicidal thoughts/plans/ideations. SW spoke with pt regarding discharge plans and how MD is recommending SNF. Pt agreeable to SNF. Patient was provided a list of SNF providers including quality and resource use data and consistent with the patient?s preferred geographic region, medical needs, and insurance network. The patient?s preferred provider is [facility] [place]. Pt states her daughter works there. SW explained that this worker will send referral and will update pt. Pt states understanding, denied additional needs or concerns at this time. STEPHEN spoke with MD, PT/OT can be ordered as this is needed for SNF, plan will be discharge tomorrow if pt is medically cleared. STEPHEN placed a call to Selam at [facility] and provided referral. SW faxed referral. Plan: [facility] [place] pending acceptance and pre-cert aLtosha Saunders GROUP TESTER, TEACHER'S ASSISTANT
--- NOTE | 2020-05-22 13:33 | CASEMGMT ---
Addendum entered by Latosha Saunders 05/22/20 14:51: STEPHEN faxed PT/OT to [facility] [place]. Original Note: Social Work Note STEPHEN placed a call to Selam at [facility] [place] for update. Selam states they are able to accept pt. Selam states pre-cert is not needed, pt can admit when medically cleared. STEPHEN updated pt on acceptance to [facility] [place]. SW to fax PT/OT and COVID test once completed. Latosha Saunders GUIDANCE COUNSELOR, BUILDING SUPERINTENDENT
[2020-05-22 16:06] LABS: Bedside Glucose 151 mg/dL (70-110)
--- NOTE | 2020-05-22 17:04 | CHAPLAIN ---
Type of Pastoral Visit _x__ Initial Visit ___ Follow-up Visit ___ On-call Visit ___ General Patient Visit ___ Spiritual Assessment ___ Family Conference ___ Bereavement ___ Rapid Response ___ Code Blue ___ Other (describe below) Pastoral Care Referral From _x__ Patient ___ Family ___ Nurse ___ Physician ___ Executive Marketing Assistant ___ Manager Report ___ Other (describe below) Sacrament/Intervention _x__ Active listening ___ Anointing ___ Religious ___ Bereavement ___ Communion _x__ Iesha exploration ___ _x__ Life review _x__ Prayer ___ Reconciliation ___ Sacrament of Sick _x__ Supportive presence ___ Wedding ___ Other (describe below) Pastoral Comments
[2020-05-22] MEDS: Pravastatin 20 MG Tablet PO (23:26)
[2020-05-23] VITALS (9 sets, daily range): BP systolic 117–145; BP diastolic 51–71; PULSE 65–80; RESP 16–18; TEMP 36.6–36.9; O2SAT 94–98
[2020-05-23 00:36] LABS: Bedside Glucose 136 mg/dL (70-110)
[2020-05-23] MEDS: 0.9% Saline Lock 10 ML Syringe IV ×4 (02:50→23:20)
[2020-05-23 05:36] LABS: Absolute Lymphocyte Count 2.05 X10^3/uL (0.83-4.51); Basophil# 0.04 X10^3/uL; Basophil% 0.7 % (0-1); Eosinophil# 0.26 X10^3/uL; Eosinophils% 4.3 % (0-5); Hematocrit 33.7 % (37-47); Hemoglobin 10.8 g/dL (12.0-15.0); Lymphocyte # 2.05 X10^3/ul (4.0); Lymphocyte % 34.1 % (19-41); Mean Corpuscular Hgb 30.6 pg (27.0-32.0); Mean Corpuscular Volume 95.5 fL (81-99); Mean Platelet Vol. 10.1 fl (6.2-12.0); Monocyte# 0.64 X10^3/uL; Monocyte% 10.6 % (0-10); NRBC Flagged by Analyzer 0 % (0-5); Neutrophil # 3.01 X10^3/uL (2.7-7.7); Platelet Count 223 K/mm3 (150-450); RBC Distribution Width CV 13.6 % (11.6-14.6); RBC Distribution Width SD 47.8 fl (35.1-43.9); Red Blood Count 3.53 M/mm3 (4.2-5.4)
[2020-05-23 05:41] LABS: International Normalized Ratio 1.4; Prothrombin Time (Protime)PT. 17.1 SECONDS (11.7-14.9)
[2020-05-23 07:00] LABS: Bedside Glucose 125 mg/dL (70-110)
--- NOTE | 2020-05-23 07:12 | PCM.PROGNOTE ---
Subjective: Patient was seen this morning for follow up on right foot. She relates it is feeling a lot better. She has no complaints of fever, chills, nausea, vomiting or any other complaints. - Physical Exam Vitals/I&O's: Vital Signs Temp Pulse Resp BP Pulse Ox 98.4 F 73 17 145/71 H 97 05/23/20 02:47 05/23/20 02:47 05/23/20 02:47 05/23/20 02:47 05/23/20 02:47 Oxygen Flow Rate (L/min) 2 Oxygen Delivery Method Room Air Weight: 117.571 kg Body Mass Index (BMI) 39.4 Intake and Output for Last 24 Hours 05/21/20 05/22/20 05/23/20 23:59 23:59 23:59 Intake Total 1104 / 1104 1262 / 1262 500 / 500 Output Total 200 / 200 1400 / 1400 Balance 904 / 904 -138 / -138 500 / 500 General: Alert, Oriented x3, Cooperative, No apparent distress Extremities: Capillary Refill Less than 3 Seconds, No Calf Tenderness, Peripheral Pulses Normal, - - s/p I+D dorsal right foot with no active bleeding, there is ecchymosis to the dorsal foot, slight light erythema around I+D site, no visible abscess, no crepitus, no fluctuance, no maloder, no necrosis, no drainage, no visible abscess, tissues are viable. Psych/Mental Status: Appropriate, Alert and oriented to time, place, person, mood and affect Microbiology Past 72 Hours 05/22/20 14:13 Mucosa - Nose SARS-CoV-2 Antigen (Rapid) - Final Laboratory Results 05/22/20 10:47: POC Glucose 171 H 05/22/20 14:23: COVID-19 (RESHMA) Cancelled 05/22/20 15:58: POC Glucose 151 H 05/22/20 23:18: POC Glucose 136 H 05/23/20 05:26: PT 17.1 H, INR 1.4 05/23/20 05:26: WBC 6.0, RBC 3.53 L, Hgb 10.8 L, Hct 33.7 L, MCV 95.5, MCH 30.6, MCHC 32.0, RDW Std Deviation 47.8 H, RDW Coeff of Ham 13.6, Plt Count 223, MPV 10.1, Immature Gran % (Auto) 0.300, Neut % (Auto) 50.0, Lymph % (Auto) 34.1, [place] % (Auto) 10.6 H, Eos % (Auto) 4.3, Baso % (Auto) 0.7, Absolute Neuts (auto) 3.0, Absolute Lymphs (auto) 2.05, Nucleated RBC % 0 05/23/20 06:55: POC Glucose 125 H Current Medications Acetaminophen (Acetaminophen 325 Mg Tablet) 650 mg PO Q6H PRN PRN PRN Reason: Pain Score 1-10 Dextrose (Dextrose 50%-Water 25 Gm/50 Ml Disp.Syrin) 0 gm IV X1 PRN; Protocol PRN Reason: Hypoglycemia Docusate Sodium (Docusate Sodium 100 Mg Capsule) 100 mg PO QHS [facility] Last Admin: 05/22/20 08:39 Dose: 100 mg Documented by: Duloxetine HCl (Duloxetine Hcl 60 Mg Capsule) 60 mg PO DAILY [facility] Last Admin: 05/22/20 08:40 Dose: 60 mg Documented by: Fluticasone Propionate (Fluticasone 0.05% 1 [place] Nasal.Sry) 2 spray NASAL DAILY [facility] Last Admin: 05/22/20 10:49 Dose: 2 sprays Documented by: Furosemide (Furosemide 80 Mg Tablet) 80 mg PO DAILY [facility] Last Admin: 05/22/20 08:39 Dose: 80 mg Documented by: Glucagon (Glucagon 1 Mg/Ml Syringe) 1 mg IM .X1 PRN PRN Reason: Hypoglycemia Clindamycin Phosphate 600 mg/ (Dextrose) 54 mls @ 100 mls/hr IV Q8 [facility] Last Admin: 05/23/20 06:51 Dose: 100 mls/hr Documented by: Insulin Human Lispro (Insulin Lispro 100 Unit/Ml Insuln.Pen) 0 unit SC ACHS [facility]; Protocol Last Admin: 05/23/20 06:56 Dose: Not Given Documented by: Loratadine (Loratadine 10 Mg Tablet) 10 mg PO DAILY [facility] Last Admin: 05/22/20 08:39 Dose: 10 mg Documented by: Metoprolol Tartrate (Metoprolol Tartrate 25 Mg Tablet) 25 mg PO BID [facility] Last Admin: 05/22/20 23:26 Dose: 25 mg Documented by: Morphine Sulfate (Morphine 2 Mg/Ml Syringe) 2 mg IV Q4H PRN PRN PRN Reason: pain 6-10 Last Admin: 05/22/20 03:21 Dose: 2 mg Documented by: Multivitamins ([facility],Therapeutic [facility]t) [facility] Last Admin: 05/22/20 08:39 Dose: 1 tablet Documented by: Oxycodone HCl (Oxycodone 5 Mg Tablet) 5 mg PO Q6H PRN PRN PRN Reason: Pain Score 4-10 Pantoprazole Sodium (Pantoprazole Sodium 40 Mg Tablet) 40 mg PO DAILY [facility] Last Admin: 05/22/20 08:40 Dose: 40 mg Documented by: Potassium Chloride (Potassium Chloride Oral Tablet 20 Meq) 40 meq PO DAILYCM [facility] Last Admin: 05/22/20 08:38 Dose: 40 meq Documented by: Pravastatin Sodium (Pravastatin 20 Mg Tablet) 20 mg PO QHS [facility] Last Admin: 05/22/20 23:26 Dose: 20 mg Documented by: Sodium Chloride (0.9% Saline Lock 10 Ml Syringe) 10 - 40 ml IV UD PRN PRN Reason: SALINE FLUSH Last Admin: 05/23/20 06:51 Dose: 10 ml Documented by: Warfarin Sodium (Warfarin 2.5 Mg Tablet) 2.5 mg PO WeTh@1700 [facility] Warfarin Sodium (Warfarin 7.5 Mg Tablet) 7.5 mg PO DAILY@1700 [facility] Medical Necessity - Tobacco Use Smoking Status: Never smoker Tobacco Use: Non-smoker Assessment/Plan All Active Problems (Last Reviewed 04/10/20 @ 15:[address] Dick Whelan MD) Dyspnea (Acute) Fatigue (Acute) SOB (shortness of breath) (Resolved) Infected hematoma dorsal right foot s/p I+D on 05/21/2020 with bleeding - hemostasis achieved at this time Diabetes Artificial heart valve (mitral valve) on Coumadin Hemostasis remains maintained to the right foot today. Ok to continue with Coumadin per foot standpoint. Dressing was changed today. Wound care right foot: Cleanse wound site with normal saline solution, apply silver alginate with overlying gauze, kerlix and chelsey dressing - change daily and otherwise do not get foot/dressing wet - keep clean, dry and intact. Keep foot elevated, no weightbearing right foot. Continue with Clindamycin 600mg q 8 hours. Cultures have been obtained and are pending - no growth, however 1st culture did have some gram positive cocci in chains. Go to Clindamycin 300mg PO q 8 hours once discharged. Pain management: Morphine, Oxyir, Tylenol - switch to norco 5/325mg q 6 hr prn pain once discharged Medicine team on consult, greatly appreciate assistance. Discussed nursing facility placement with patient - probable discharge today to [facility].
[2020-05-23] MEDS: Potassium Chloride Oral Tablet 20 MEQ 40 MEQ PO (08:06)
[2020-05-23] MEDS: Multivitamins,Therapeutic Tablet 1 TABLET PO (08:07)
[2020-05-23] MEDS: DULoxetine Hcl 60 MG Capsule PO (08:07)
[2020-05-23] MEDS: Fluticasone 0.05% 1 SPRAY NASAL.SRY 2 SPRAY NASAL (08:07)
[2020-05-23] MEDS: Pantoprazole Sodium 40 MG Tablet PO (08:08)
[2020-05-23] MEDS: Furosemide 80 MG Tablet PO (08:08)
[2020-05-23] MEDS: Metoprolol Tartrate 25 MG Tablet PO ×2 (08:08→22:25)
[2020-05-23] MEDS: Loratadine 10 MG Tablet PO (08:09)
[2020-05-23] MEDS: Enoxaparin 120 MG/0.8 ML Syringe SC ×2 (08:46→17:46)
--- NOTE | 2020-05-23 09:56 | PCM.PROGNOTE ---
<Marcia Ramesh [employer]PER[employer] SUPERVISOR - Last Filed: 05/23/20 10:00> Subjective: Patient seen and examined. No acute events overnight. Patient states right foot dressing change this morning with no further significant bleeding. Pain controlled. Plan for SNF discharge per podiatry. Plan for therapeutic Lovenox pending return of therapeutic INR. - Physical Exam Vitals/I&O's: Vital Signs Temp Pulse Resp BP Pulse Ox 97.9 F 70 18 123/60 H 98 05/23/20 07:42 05/23/20 08:23 05/23/20 07:42 05/23/20 07:42 05/23/20 08:13 Oxygen Flow Rate (L/min) 2 Oxygen Delivery Method Room Air Weight: 259 lb 3.195 oz Body Mass Index (BMI) 39.4 Intake and Output for Last 24 Hours 05/21/20 05/22/20 05/23/20 23:59 23:59 23:59 Intake Total 1104 / 1104 1262 / 1262 500 / 500 Output Total 200 / 200 1400 / 1400 Balance 904 / 904 -138 / -138 500 / 500 General: Alert, Oriented x3, Cooperative HEENT: Atraumatic, PERRLA, EOMI, Normocephalic Neck: Supple, No JVD, Negative Carotid Bruits Lungs: Clear to auscultation, Normal air movement Cardiovascular: Regular rate, No murmurs Abdomen: Bowel Sounds Present, Soft, Non Tender, Non-Distended Extremities: No clubbing, No cyanosis, No edema, Capillary Refill Less than 3 Seconds Skin: - - Right foot dressing intact Musculoskeletal: No Tenderness to Palpation of Joints or Extremities Neurological: Cranial nerves II-XII grossly intact, Neuro grossly intact Psych/Mental Status: Normal Affect, Appropriate Microbiology Past 72 Hours 05/22/20 14:13 Mucosa - Nose SARS-CoV-2 Antigen (Rapid) - Final Laboratory Results 05/22/20 10:47: POC Glucose 171 H 05/22/20 14:23: COVID-19 (RESHMA) Cancelled 05/22/20 15:58: POC Glucose 151 H 05/22/20 23:18: POC Glucose 136 H 05/23/20 05:26: PT 17.1 H, INR 1.4 05/23/20 05:26: WBC 6.0, RBC 3.53 L, Hgb 10.8 L, Hct 33.7 L, MCV 95.5, MCH 30.6, MCHC 32.0, RDW Std Deviation 47.8 H, RDW Coeff of Ham 13.6, Plt Count 223, MPV 10.1, Immature Gran % (Auto) 0.300, Neut % (Auto) 50.0, Lymph % (Auto) 34.1, [place] % (Auto) 10.6 H, Eos % (Auto) 4.3, Baso % (Auto) 0.7, Absolute Neuts (auto) 3.0, Absolute Lymphs (auto) 2.05, Nucleated RBC % 0 05/23/20 06:55: POC Glucose 125 H Current Medications Acetaminophen (Acetaminophen 325 Mg Tablet) 650 mg PO Q6H PRN PRN PRN Reason: Pain Score 1-10 Dextrose (Dextrose 50%-Water 25 Gm/50 Ml Disp.Syrin) 0 gm IV X1 PRN; Protocol PRN Reason: Hypoglycemia Docusate Sodium (Docusate Sodium 100 Mg Capsule) 100 mg PO QHS [facility] Last Admin: 05/22/20 08:39 Dose: 100 mg Documented by: Duloxetine HCl (Duloxetine Hcl 60 Mg Capsule) 60 mg PO DAILY [facility] Last Admin: 05/23/20 08:07 Dose: 60 mg Documented by: Enoxaparin Sodium (Enoxaparin 120 Mg/0.8 Ml Syringe) 120 mg SC Q12@0600,1800 [facility] Last Admin: 05/23/20 08:46 Dose: 120 mg Documented by: Fluticasone Propionate (Fluticasone 0.05% 1 [place] Nasal.Sry) 2 spray NASAL DAILY [facility] Last Admin: 05/23/20 08:07 Dose: 2 sprays Documented by: Furosemide (Furosemide 80 Mg Tablet) 80 mg PO DAILY [facility] Last Admin: 05/23/20 08:08 Dose: 80 mg Documented by: Glucagon (Glucagon 1 Mg/Ml Syringe) 1 mg IM .X1 PRN PRN Reason: Hypoglycemia Clindamycin Phosphate 600 mg/ (Dextrose) 54 mls @ 100 mls/hr IV Q8 [facility] Last Admin: 05/23/20 06:51 Dose: 100 mls/hr Documented by: Insulin Human Lispro (Insulin Lispro 100 Unit/Ml Insuln.Pen) 0 unit SC ACHS [facility]; Protocol Last Admin: 05/23/20 06:56 Dose: Not Given Documented by: Loratadine (Loratadine 10 Mg Tablet) 10 mg PO DAILY [facility] Last Admin: 05/23/20 08:09 Dose: 10 mg Documented by: Metoprolol Tartrate (Metoprolol Tartrate 25 Mg Tablet) 25 mg PO BID [facility] Last Admin: 05/23/20 08:08 Dose: 25 mg Documented by: Morphine Sulfate (Morphine 2 Mg/Ml Syringe) 2 mg IV Q4H PRN PRN PRN Reason: pain 6-10 Last Admin: 05/22/20 03:21 Dose: 2 mg Documented by: Multivitamins ([facility],Therapeutic Tablet) [facility] Last Admin: 05/23/20 08:07 Dose: 1 tablet Documented by: Oxycodone HCl (Oxycodone 5 Mg Tablet) 5 mg PO Q6H PRN PRN PRN Reason: Pain Score 4-10 Pantoprazole Sodium (Pantoprazole Sodium 40 Mg Tablet) 40 mg PO DAILY [facility] Last Admin: 05/23/20 08:08 Dose: 40 mg Documented by: Potassium Chloride (Potassium Chloride Oral Tablet 20 Meq) [facility] meq [facility] Last Admin: 05/23/20 08:06 Dose: 40 meq Documented by: Pravastatin Sodium (Pravastatin 20 Mg Tablet) 20 mg PO QHS [facility] Last Admin: 05/22/20 23:26 Dose: 20 mg Documented by: Sodium Chloride (0.9% Saline Lock 10 Ml Syringe) 10 - 40 ml IV UD PRN PRN Reason: SALINE FLUSH Last Admin: 05/23/20 06:51 Dose: 10 ml Documented by: Warfarin Sodium (Warfarin 2.5 Mg Tablet) 2.5 mg PO WeTh@1700 [facility] Warfarin Sodium (Warfarin 7.5 Mg Tablet) 7.5 mg PO DAILY@1700 [facility] Medical Necessity - Tobacco Use Smoking Status: Never smoker Tobacco Use: Non-smoker Assessment/Plan All Active Problems (Last Reviewed 04/10/20 @ 15:[address] Dick Whelan MD) Dyspnea (Acute) Fatigue (Acute) SOB (shortness of breath) (Resolved) 1. Infected hematoma dorsal right foot status post I&D 05/21/2020-complicated by postoperative bleeding secondary to Coumadin use. Patient received vitamin K 5 mg x 1. INR at discharge 1.4. Initiated on therapeutic Lovenox. Home Coumadin regimen resumed. Patient will need daily INR at SNF and may discontinue Lovenox when INR is greater than 2.5. Dressing changes per podiatry orders. On clindamycin. Okay for discharge from medical standpoint on Lovenox with serial INR and resume of Coumadin. 2. Mitral and aortic valve replacement on anticoagulation with Coumadin-Coumadin resumed as noted above. 3. Chronic diastolic CHF-stable, continue torsemide. 4. Hypertension-stable, continue metoprolol. 5. Hyperlipidemia-continue statin. 6. ROYA-continue home Pap regimen. 7. History of endometrial cancer-in remission DVT prophylaxis-Coumadin This patient was seen by [facility] under the supervision of Dr. Escobar. <Georgina Escobar - Last Filed: 05/23/20 14:09> - Physical Exam Vitals/I&O's: Vital Signs Temp Pulse Resp BP Pulse Ox 97.8 F 67 16 117/51 L 97 05/23/20 11:00 05/23/20 11:00 05/23/20 11:00 05/23/20 11:00 05/23/20 11:02 Oxygen Flow Rate (L/min) 2 Oxygen Delivery Method Room Air Weight: 117.571 kg Body Mass Index (BMI) 39.4 Intake and Output for Last 24 Hours 05/21/20 05/22/20 05/23/20 23:59 23:59 23:59 Intake Total 1104 / 1104 1262 / 1262 554 / 554 Output Total 200 / 200 1400 / 1400 Balance 904 / 904 -138 / -138 554 / 554 Microbiology Past 72 Hours 05/22/20 14:13 Mucosa - Nose SARS-CoV-2 Antigen (Rapid) - Final Laboratory Results 05/22/20 14:23: COVID-19 (RESHMA) Cancelled 05/22/20 15:58: POC Glucose 151 H 05/22/20 23:18: POC Glucose 136 H 05/23/20 05:26: PT 17.1 H, INR 1.4 05/23/20 05:26: WBC 6.0, RBC 3.53 L, Hgb 10.8 L, Hct 33.7 L, MCV 95.5, MCH 30.6, MCHC 32.0, RDW Std Deviation 47.8 H, RDW Coeff of Ham 13.6, Plt Count 223, MPV 10.1, Immature Gran % (Auto) 0.300, Neut % (Auto) 50.0, Lymph % (Auto) 34.1, [place] % (Auto) 10.6 H, Eos % (Auto) 4.3, Baso % (Auto) 0.7, Absolute Neuts (auto) 3.0, Absolute Lymphs (auto) 2.05, Nucleated RBC % 0 05/23/20 06:55: POC Glucose 125 H 05/23/20 11:04: POC Glucose 114 H Current Medications Acetaminophen (Acetaminophen 325 Mg Tablet) 650 mg PO Q6H PRN PRN PRN Reason: Pain Score 1-10 Dextrose (Dextrose 50%-Water 25 Gm/50 Ml Disp.Syrin) 0 gm IV X1 PRN; Protocol PRN Reason: Hypoglycemia Docusate Sodium (Docusate Sodium 100 Mg Capsule) 100 mg PO QHS [facility] Last Admin: 05/22/20 08:39 Dose: 100 mg Documented by: Duloxetine HCl (Duloxetine Hcl 60 Mg Capsule) 60 mg PO DAILY [facility] Last Admin: 05/23/20 08:07 Dose: 60 mg Documented by: Enoxaparin Sodium (Enoxaparin 120 Mg/0.8 Ml Syringe) 120 mg SC Q12@0600,1800 [facility] Last Admin: 05/23/20 08:46 Dose: 120 mg Documented by: Fluticasone Propionate (Fluticasone 0.05% 1 [place] Nasal.Sry) 2 spray NASAL DAILY [facility] Last Admin: 05/23/20 08:07 Dose: 2 sprays Documented by: Furosemide (Furosemide 80 Mg Tablet) 80 mg PO DAILY [facility] Last Admin: 05/23/20 08:08 Dose: 80 mg Documented by: Glucagon (Glucagon 1 Mg/Ml Syringe) 1 mg IM .X1 PRN PRN Reason: Hypoglycemia Clindamycin Phosphate 600 mg/ (Dextrose) 54 mls @ 100 mls/hr IV Q8 [facility] Last Infusion: 05/23/20 07:24 Dose: Infused Documented by: Insulin Human Lispro (Insulin Lispro 100 Unit/Ml Insuln.Pen) 0 unit SC ACHS [facility]; Protocol Last Admin: 05/23/20 11:21 Dose: Not Given Documented by: Loratadine (Loratadine 10 Mg Tablet) 10 mg PO DAILY [facility] Last Admin: 05/23/20 08:09 Dose: 10 mg Documented by: Metoprolol Tartrate (Metoprolol Tartrate 25 Mg Tablet) 25 mg PO BID [facility] Last Admin: 05/23/20 08:08 Dose: 25 mg Documented by: Morphine Sulfate (Morphine 2 Mg/Ml Syringe) 2 mg IV Q4H PRN PRN PRN Reason: pain 6-10 Last Admin: 05/22/20 03:21 Dose: 2 mg Documented by: Multivitamins (Multivitamins,Therapeutic Tablet) [facility] Last Admin: 05/23/20 08:07 Dose: 1 tablet Documented by: Oxycodone HCl (Oxycodone 5 Mg Tablet) 5 mg PO Q6H PRN PRN PRN Reason: Pain Score 4-10 Pantoprazole Sodium (Pantoprazole Sodium 40 Mg Tablet) 40 mg PO DAILY [facility] Last Admin: 05/23/20 08:08 Dose: 40 mg Documented by: Potassium Chloride (Potassium Chloride Oral Tablet 20 Meq) [facility] meq [facility] Last Admin: 05/23/20 08:06 Dose: 40 meq Documented by: Pravastatin Sodium (Pravastatin 20 Mg Tablet) 20 mg PO QHS [facility] Last Admin: 05/22/20 23:26 Dose: 20 mg Documented by: Sodium Chloride (0.9% Saline Lock 10 Ml Syringe) 10 - 40 ml IV UD PRN PRN Reason: SALINE FLUSH Last Admin: 05/23/20 06:51 Dose: 10 ml Documented by: Warfarin Sodium (Warfarin 2.5 Mg Tablet) 2.5 mg PO WeTh@1700 [facility] Warfarin Sodium (Warfarin 7.5 Mg Tablet) 7.5 mg PO DAILY@1700 [facility] Assessment/Plan This patient was seen in conjunction with Marcia Ramesh NP. I have independently interviewed and examined the patient and reviewed pertinent historical, laboratory, and other data. Please refer to her note for patient's presentation, findings, and recommendations. Patient was seen and examined. No acute events overnight. INR this morning is 1.4. Coumadin could not be initiated yesterday Vitals were reviewed -stable Physical Exam: Gen: Comfortable, not pale, not jaundiced, alert oriented x3 CVS:HS I +II, regular, no murmurs RESP: CTA GI: BS present and normal, nontender, no palpable organs EXT:No edema, right foot is dressed, elevated on pillows. Labs reviewed: ASSESSMENT: 1. Acute post-op wound bleeding 2. Acute infected hematoma status post I & D on 3. Subtherapeutic INR 4. Status post mitral and aortic valve replacement 5. Chronic diastolic CHF 6. Hypertension 7. Hyperlipidemia 8. ROYA Meds reviewed Plan: Continue on Lovenox SC BID Continue on Coumadin Repeat INR in a.m. Inpatient E&M: [id number] Subs Hosp L2
[2020-05-23 11:11] LABS: Bedside Glucose 114 mg/dL (70-110)
--- NOTE | 2020-05-23 12:10 | CASEMGMT ---
Social Work Note Pt is not medically cleared for discharge today, likely tomorrow. SW placed a call to Selam at [facility] and updated her. 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
[2020-05-23] MEDS: Acetaminophen 325 MG Tablet 650 MG PO (14:12)
[2020-05-23] MEDS: oxyCODONE 5 MG Tablet PO (14:13)
[2020-05-23 17:00] LABS: Bedside Glucose 131 mg/dL (70-110)
[2020-05-23] MEDS: Docusate Sodium 100 MG Capsule PO (22:24)
[2020-05-23] MEDS: Pravastatin 20 MG Tablet PO (22:25)
[2020-05-23 22:45] LABS: Bedside Glucose 131 mg/dL (70-110)
[2020-05-24 03:04] VITALS: BP 144/66; PULSE 73; RESP 16; TEMP 36.6; O2SAT 95
[2020-05-24] MEDS: 0.9% Saline Lock 10 ML Syringe IV ×2 (06:37→08:42)
[2020-05-24] MEDS: Enoxaparin 120 MG/0.8 ML Syringe SC (06:40)
[2020-05-24 06:46] LABS: Bedside Glucose 130 mg/dL (70-110)
[2020-05-24 07:02] LABS: International Normalized Ratio 1.3; Prothrombin Time (Protime)PT. 15.4 SECONDS (11.7-14.9)
[2020-05-24 07:08] VITALS: O2SAT 96
--- NOTE | 2020-05-24 08:10 | PN_ITS ---
Reason for Visit: Follow-up on subtherapeutic INR/left leg hematoma. Subjective: Patient was seen and examined. Denied any new complaints. No acute events overnight. INR remains subtherapeutic at 1.3 Vitals/I&O's: Vital Signs Temp Pulse Resp BP Pulse Ox 97.8 F 73 16 144/66 H 95 05/24/20 03:04 05/24/20 03:04 05/24/20 03:04 05/24/20 03:04 05/24/20 03:04 Oxygen Flow Rate (L/min) 2 Oxygen Delivery Method Room Air Weight: 117.571 kg Body Mass Index (BMI) 39.4 Intake and Output for Last 24 Hours 05/22/20 05/23/20 05/24/20 23:59 23:59 23:59 Intake Total 1262 / 1262 1262 / 1262 1150 / 1150 Output Total 1400 / 1400 Balance -138 / -138 1262 / 1262 1150 / 1150 General: Alert, Oriented x3, Cooperative, No apparent distress HEENT: Atraumatic, PERRLA, EOMI, Normocephalic Oral: Moist Mucosa Neck: Supple Lungs: Clear to auscultation, Normal air movement Cardiovascular: Regular rate, Regular Rhythm, Normal S1, Normal S2, Murmur - Mechanical click, Abdomen: Bowel Sounds Present, Soft, Non Tender, Non-Distended, No Hepato- splenomegaly Extremities: - - Right foot has been dressed, no leg edema Skin: - - See and wound/podiatry Musculoskeletal: No Tenderness to Palpation of Joints or Extremities Lymphatic: No Cervical, Supraclavicular, or Inguinal Adenopathy Neurological: Cranial nerves II-XII grossly intact, Neuro grossly intact Psych/Mental Status: Normal Affect, Appropriate Microbiology Past 72 Hours 05/22/20 14:13 Mucosa - Nose SARS-CoV-2 Antigen (Rapid) - Final Laboratory Results 05/23/20 11:04: POC Glucose 114 H 05/23/20 16:56: POC Glucose 131 H 05/23/20 22:22: POC Glucose 131 H 05/24/20 06:25: PT 15.4 H, INR 1.3 05/24/20 06:35: POC Glucose 130 H Current Medications Acetaminophen (Acetaminophen 325 Mg Tablet) 650 mg PO Q6H PRN PRN PRN Reason: Pain Score 1-10 Last Admin: 05/23/20 14:12 Dose: 650 mg Documented by: Dextrose (Dextrose 50%-Water 25 Gm/50 Ml Disp.Syrin) 0 gm IV X1 PRN; Protocol PRN Reason: Hypoglycemia Docusate Sodium (Docusate Sodium 100 Mg Capsule) 100 mg PO QHS [facility] Last Admin: 05/23/20 22:24 Dose: 100 mg Documented by: Duloxetine HCl (Duloxetine Hcl 60 Mg Capsule) 60 mg PO DAILY [facility] Last Admin: 05/23/20 08:07 Dose: 60 mg Documented by: Enoxaparin Sodium (Enoxaparin 120 Mg/0.8 Ml Syringe) 120 mg SC Q12@0600,1800 [facility] Last Admin: 05/24/20 06:40 Dose: 120 mg Documented by: Fluticasone Propionate (Fluticasone 0.05% 1 [place] Nasal.Sry) 2 spray NASAL DAILY [facility] Last Admin: 05/23/20 08:07 Dose: 2 sprays Documented by: Furosemide (Furosemide 80 Mg Tablet) 80 mg PO DAILY [facility] Last Admin: 05/23/20 08:08 Dose: 80 mg Documented by: Glucagon (Glucagon 1 Mg/Ml Syringe) 1 mg IM .X1 PRN PRN Reason: Hypoglycemia Clindamycin Phosphate 600 mg/ (Dextrose) 54 mls @ 100 mls/hr IV Q8 [facility] Last Admin: 05/24/20 06:37 Dose: 100 mls/hr Documented by: Insulin Human Lispro (Insulin Lispro 100 Unit/Ml Insuln.Pen) 0 unit SC ACHS [facility]; Protocol Last Admin: 05/24/20 06:39 Dose: Not Given Documented by: Loratadine (Loratadine 10 Mg Tablet) 10 mg PO DAILY [facility] Last Admin: 05/23/20 08:09 Dose: 10 mg Documented by: Metoprolol Tartrate (Metoprolol Tartrate 25 Mg Tablet) 25 mg PO BID [facility] Last Admin: 05/23/20 22:25 Dose: 25 mg Documented by: Morphine Sulfate (Morphine 2 Mg/Ml Syringe) 2 mg IV Q4H PRN PRN PRN Reason: pain 6-10 Last Admin: 05/22/20 03:21 Dose: 2 mg Documented by: Multivitamins ([facility]rapeutic [facility]) [facility] Last Admin: 05/23/20 08:07 Dose: 1 tablet Documented by: Oxycodone HCl (Oxycodone 5 Mg Tablet) 5 mg PO Q6H PRN PRN PRN Reason: Pain Score 4-10 Last Admin: 05/23/20 14:13 Dose: 5 mg Documented by: Pantoprazole Sodium (Pantoprazole Sodium 40 Mg Tablet) 40 mg PO DAILY [facility] Last Admin: 05/23/20 08:08 Dose: 40 mg Documented by: Potassium Chloride (Potassium Chloride Oral Tablet 20 Meq) 40 meq PO DAILYCM [facility] Last Admin: 05/23/20 08:06 Dose: 40 meq Documented by: Pravastatin Sodium (Pravastatin 20 Mg Tablet) 20 mg PO QHS [facility] Last Admin: 05/23/20 22:25 Dose: 20 mg Documented by: Sodium Chloride (0.9% Saline Lock 10 Ml Syringe) 10 - 40 ml IV UD PRN PRN Reason: SALINE FLUSH Last Admin: 05/24/20 06:37 Dose: 10 ml Documented by: Warfarin Sodium (Warfarin 2.5 Mg Tablet) 2.5 mg PO WeTh@1700 [facility] Last Admin: 05/23/20 17:45 Dose: 2.5 mg Documented by: Warfarin Sodium (Warfarin 7.5 Mg Tablet) 7.5 mg PO DAILY@1700 [facility] Last Admin: 05/23/20 17:46 Dose: 7.5 mg Documented by: Medical Necessity - Tobacco Use Smoking Status: Never smoker Tobacco Use: Non-smoker Assessment/Plan All Active Problems (Last Reviewed 04/10/20 @ 15:[address] Dick Whelan MD) Dyspnea (Acute) Fatigue (Acute) SOB (shortness of breath) (Resolved) 1. Acute post-op wound bleeding, resolved Wound dressed by podiatry 2. Acute infected hematoma status post I & D on 05/21/20 Wound cultures showed no growth, continue on po clindamycin to complete 1 week 3. Subtherapeutic INR, INR is 1.3, continue Lovenox and Coumadin overlap 4. Status post mitral and aortic valve replacement, continue on Lovenox and Coumadin 5. Chronic diastolic CHF, remains stable Continue on torsemide, metoprolol 6. Hypertension, controlled, continue metoprolol 7. Hyperlipidemia, continue on statin 8. DVT prophylaxis?on heparin/Lovenox Inpatient E&M: [id number] [facility] Hosp L2
--- NOTE | 2020-05-24 08:31 | PCM.DC.POD ---
Discharge Activity: May Not Drive, Use Walker Weight Bearing Status: No weight bearing - No weightbearing right foot Keep extremity elevated above heart level: Right Leg - Keep right foot elevated with pillows. Call your doctor if your incision/area has: Continuous Slow Oozing, Sudden Increased Bleeding, Increased Pain/ Swelling, Increased Redness, Foul Smelling Discharge Call your doctor if you observe: Fever of 101 or Higher, Shortness of breath, Chest pain, Calf discomfort, Uncontrolled pain Cleanse incision/area with: - - Wound care right foot - cleanse with normal saline solution. Apply Aquacel Ag to wound site, apply overlying gauze, kerlix and chelsey dressing - change daily. Allergies/Adverse Reactions: Allergies clarithromycin [From Biaxin] Allergy (Severe, Verified 05/21/20 13:59) SOB, hives and swelling cephalexin [Cephalexin] Allergy (Verified 05/21/20 13:59) Rash simvastatin Allergy (Verified 05/21/20 13:59) Rash sulfamethoxazole Allergy (Verified 05/21/20 13:59) Rash trimethoprim Allergy (Verified 05/21/20 17:35) Rash/leg swelling bupropion Adverse Reaction (Severe, Verified 05/21/20 13:59) worsened depression ciprofloxacin Adverse Reaction (Verified 05/21/20 17:35) Itching Macrolide Antibiotics Adverse Reaction (Verified 05/21/20 13:59) Unknown Penicillins Adverse Reaction (Verified 05/21/20 13:59) Unknown adhesive tape Allergy (Uncoded 05/21/20 13:59) Itching Medications to take at Discharge Aspirin [Aspirin, Baby] 81 mg PO DAILY@199905/30/16 Multivitamins,Therapeutic [Multivitamin] 1 tab PO DAILY 05/30/16 albuterol sulfate 90 mcg/actuation aerosol inhaler 1 inh INHALATION DAILY PRN PRN 03/26/17 duloxetine 60 mg capsule,delayed release 60 mg PO DAILY 07/20/18 fluticasone propionate 50 mcg/actuation nasal spray,suspension 2 spray INTRANASAL QDAY #1 device 01/04/19 metformin 500 mg tablet 250 mg PO DAILY tab 08/16/19 Pravastatin Sodium 20 mg PO QHS 10/18/19 warfarin 7.5 mg tablet 7.5 mg PO DAILY #90 tab 04/19/20 Cholecalciferol (Vitamin D3) [D3-50] 1,250 mcg PO MO 05/21/20 Docusate Sodium 100 mg PO QHS 05/21/20 Guaifenesin [Mucinex] 1,200 mg PO BID 05/21/20 Loratadine 10 mg PO DAILY 05/21/20 Melatonin 5 mg PO QHS 05/21/20 Metoprolol Tartrate [Lopressor (beta radha)] 25 mg PO BID 05/21/20 Omeprazole 40 mg PO DAILY 05/21/20 Potassium Chloride [Klor-Con M20] 40 meq PO DAILY 05/21/20 Torsemide 40 mg PO DAILY 05/21/20 Warfarin Sodium 2.5 mg PO WETH 05/21/20 Clindamycin [Cleocin] 300 mg PO Q8H #15 cap 05/23/20 Hydrocodone Bitart/Apap 5-325 [[place] 5MG-325MG] 1 tab PO Q6H PRN PRN 4 Days #10 tab 05/23/20 DiphenhydrAMINE [Benadryl] 25 mg PO DAILY PRN PRN #10 capsule 05/24/20 Enoxaparin [Lovenox] 120 mg SC Q12@0600,1800 syringe 05/24/20 The following prescriptions were given: DiphenhydrAMINE [Benadryl] 25 mg PO DAILY PRN PRN #10 capsule PRN Reason: foot itching Clindamycin [Cleocin] 300 mg PO Q8H #15 cap Prescription Printed Hydrocodone Bitart/Apap 5-325 [[place] 5MG-325MG] 1 tab PO Q6H PRN PRN 4 Days #10 tab PRN Reason: Pain Transmission Status: Received by [id number] - Test Results: Test results from this visit will be discussed in further detail at your follow-up appointment, if applicable. Please Follow Up With: Eber Fleming DPM - Office number: [phone], follow up sooner if needed When: Thursday05/29/2020- [facility] to schedule time
--- NOTE | 2020-05-24 08:32 | TREXTCAR_ITS ---
- Diet 05/21/20 16:17 Diet: Carbohydrate Controlled - Routine Orders/Code Status Routine Lab Work: CBC - within 3 days, BMP - within 3 days, INR - daily - Wound(s) right foot Wound Type: I&D hematoma site right dorsal foot Dressing Change: AntiMicrobial (Aquacel AG, etc) - Therapies Weight Bearing: Non weight bearing - Allergies/Procedures Done in Hospital Allergies/Adverse Reactions: Allergies clarithromycin [From Biaxin] Allergy (Severe, Verified 05/21/20 13:59) SOB, hives and swelling cephalexin [Cephalexin] Allergy (Verified 05/21/20 13:59) Rash simvastatin Allergy (Verified 05/21/20 13:59) Rash sulfamethoxazole Allergy (Verified 05/21/20 13:59) Rash trimethoprim Allergy (Verified 05/21/20 17:35) Rash/leg swelling bupropion Adverse Reaction (Severe, Verified 05/21/20 13:59) worsened depression ciprofloxacin Adverse Reaction (Verified 05/21/20 17:35) Itching Macrolide Antibiotics Adverse Reaction (Verified 05/21/20 13:59) Unknown Penicillins Adverse Reaction (Verified 05/21/20 13:59) Unknown adhesive tape Allergy (Uncoded 05/21/20 13:59) Itching - Type of Care/Length of Stay Estimated LOS: Convalescent Care Less Than 30 days Type of Care Needed: Skilled Rehab Potential: Good Prognosis: Good - Additional Orders/Day of Discharge Additional Orders: Continue with Lovenox sc and warfarin overlap. Continue with daily INR checks until INR is therapeutic with goal of 2.5-3.5 Day of Discharge: 05/24/20 - Dietary and Speech Recommendations Dietitian Recommendations/Changes: Continue CHO controlled diet as ordered. - Follow Up Care [facility] - Please follow up with your Primary Care Physician in: within 1-2 weeks of discharge Please Follow Up With: Dick Whelan MD When: as scheduled previously
--- NOTE | 2020-05-24 08:38 | NURSING ---
wound photo: right dorsal foot
--- NOTE | 2020-05-24 08:40 | PCM.DC.SUM ---
Discharge Date and Diagnosis Date of Admission: 05/21/20 Date of Discharge: 05/24/20 - Secondary Discharge Diagnosis Chronic Problems: Chronic Problems (Last Reviewed 04/10/20 @ 15:[address] 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 Mitral valve replacement with 29-mm St. Rob Mechanical prosthesis. Aortic valve replacement with a 19-mm On-X Mechanical prosthesis. 05/2016 Nonrheumatic aortic (valve) stenosis with insufficiency (Chronic) Nonrheumatic mitral valve insufficiency (Chronic) History of mitral valve replacement with mechanical valve (Chronic 05/13/16) History of mechanical aortic valve replacement (Chronic 05/13/16) Secondary pulmonary arterial hypertension (Chronic) Chronic diastolic (congestive) heart failure (Chronic) Left bundle branch block (Chronic) Essential (primary) hypertension (Chronic) HLD (hyperlipidemia) (Chronic) Obstructive sleep apnea (Chronic) Asthma (Chronic) Narcolepsy (Chronic) Endometrial cancer (Chronic) Robotic hysterectomy wit bilateral salpingo-oophorectomy and lymph node sampling custodial (current) use of anticoagulants (Chronic) Hospital Course and Treatment Operations: None Summary of Care Provided: The patient is a 60 year old female with hx of diabetes, as well as artifical heart valve on anticoagulation. Patient dropped water bottle on foot and developed a very painful hematoma on the top of the right foot. Patient underwent I+D and has significant bleeding. Patient was admitted for further management. Hemostasis achieved with gel foam, elevation, compression, vitamin K and temporarily stopping Coumadin. Patient's INR subtherapeutic at this time - Coumadin has been restarted but she is being bridged with heparin until INR become therapeutic. Cultures right foot with no growth, but noted to have rare gram positive cocci in chains - patient has been on Clindamcyin. Pain to foot much improved, site is healing. She does have some itching to top of the foot. Assessment/Plan: Infected hematoma dorsal right foot s/p I+D on 05/21/2020 with bleeding - hemostasis achieved at this time Diabetes Artificial heart valve (mitral valve) on Coumadin Hemostasis remains maintained to the right foot today. Ok to continue with Coumadin per foot standpoint. Dressing was changed today. Wound care right foot: Cleanse wound site with normal saline solution, apply silver alginate with overlying gauze, kerlix and chelsey dressing - change daily and otherwise do not get foot/dressing wet - keep clean, dry and intact. Keep foot elevated, no weightbearing right foot. Continue with Clindamycin 600mg q 8 hours. Cultures have been obtained and are pending - no growth, however 1st culture did have some gram positive cocci in chains. ID/Dr. Mohan has been consulted for antibiotic recommendations. Pain management: Morphine, Oxyir, Tylenol - switch to norco 5/325mg q 6 hr prn pain once discharged Medicine team on consult, greatly appreciate assistance. Discussed nursing facility placement with patient - probable discharge today to [place]. Subjective: Patient relates pain to foot much improved. She relates there is itching on top of the foot. Otherwise she is doing well, no complaints, no complaints of fever, chills, nausea or vomiting. - Physical Exam Vitals/I&O's: Vital Signs Temp Pulse Resp BP Pulse Ox 97.8 F 73 16 144/66 H 95 05/24/20 03:04 05/24/20 03:04 05/24/20 03:04 05/24/20 03:04 05/24/20 03:04 Oxygen Flow Rate (L/min) 2 Oxygen Delivery Method Room Air Weight: 117.571 kg Body Mass Index (BMI) 39.4 Intake and Output for Last 24 Hours 05/22/20 05/23/20 05/24/20 23:59 23:59 23:59 Intake Total 1262 / 1262 1262 / 1262 1150 / 1150 Output Total 1400 / 1400 Balance -138 / -138 1262 / 1262 1150 / 1150 General: Alert, Oriented x3, Cooperative, No apparent distress Psych/Mental Status: Normal Affect, Alert and oriented to time, place, person, mood and affect Microbiology Past 72 Hours 05/22/20 14:13 Mucosa - Nose SARS-CoV-2 Antigen (Rapid) - Final Laboratory Results 05/23/20 11:04: POC Glucose 114 H 05/23/20 16:56: POC Glucose 131 H 05/23/20 22:22: POC Glucose 131 H 05/24/20 06:25: PT 15.4 H, INR 1.3 05/24/20 06:35: POC Glucose 130 H Current Medications Acetaminophen (Acetaminophen 325 Mg Tablet) 650 mg PO Q6H PRN PRN PRN Reason: Pain Score 1-10 Last Admin: 05/23/20 14:12 Dose: 650 mg Documented by: Dextrose (Dextrose 50%-Water 25 Gm/50 Ml Disp.Syrin) 0 gm IV X1 PRN; Protocol PRN Reason: Hypoglycemia Docusate Sodium (Docusate Sodium 100 Mg Capsule) 100 mg PO QHS [facility] Last Admin: 05/23/20 22:24 Dose: 100 mg Documented by: Duloxetine HCl (Duloxetine Hcl 60 Mg Capsule) 60 mg PO DAILY [facility] Last Admin: 05/23/20 08:07 Dose: 60 mg Documented by: Enoxaparin Sodium (Enoxaparin 120 Mg/0.8 Ml Syringe) 120 mg SC Q12@0600,1800 [facility] Last Admin: 05/24/20 06:40 Dose: 120 mg Documented by: Fluticasone Propionate (Fluticasone 0.05% 1 [place] Nasal.Sry) 2 spray NASAL DAILY [facility] Last Admin: 05/23/20 08:07 Dose: 2 sprays Documented by: Furosemide (Furosemide 80 Mg Tablet) 80 mg PO DAILY [facility] Last Admin: 05/23/20 08:08 Dose: 80 mg Documented by: Glucagon (Glucagon 1 Mg/Ml Syringe) 1 mg IM .X1 PRN PRN Reason: Hypoglycemia Clindamycin Phosphate 600 mg/ (Dextrose) 54 mls @ 100 mls/hr IV Q8 [facility] Last Admin: 05/24/20 06:37 Dose: 100 mls/hr Documented by: Insulin Human Lispro (Insulin Lispro 100 Unit/Ml Insuln.Pen) 0 unit SC ACHS [facility]; Protocol Last Admin: 05/24/20 06:39 Dose: Not Given Documented by: Loratadine (Loratadine 10 Mg Tablet) 10 mg PO DAILY [facility] Last Admin: 05/23/20 08:09 Dose: 10 mg Documented by: Metoprolol Tartrate (Metoprolol Tartrate 25 Mg Tablet) 25 mg PO BID [facility] Last Admin: 05/23/20 22:25 Dose: 25 mg Documented by: Morphine Sulfate (Morphine 2 Mg/Ml Syringe) 2 mg IV Q4H PRN PRN PRN Reason: pain 6-10 Last Admin: 05/22/20 03:21 Dose: 2 mg Documented by: Multivitamins ([facility]ivit[facility],Therapeutic Tablet) [facility] Admin: 05/23/20 08:07 Dose: 1 tablet Documented by: Oxycodone HCl (Oxycodone 5 Mg Tablet) 5 mg PO Q6H PRN PRN PRN Reason: Pain Score 4-10 Last Admin: 05/23/20 14:13 Dose: 5 mg Documented by: Pantoprazole Sodium (Pantoprazole Sodium 40 Mg Tablet) 40 mg PO DAILY [facility] Last Admin: 05/23/20 08:08 Dose: 40 mg Documented by: Potassium Chloride (Potassium Chloride Oral Tablet 20 Meq) [facility] Last Admin: 05/23/20 08:06 Dose: 40 meq Documented by: Pravastatin Sodium (Pravastatin 20 Mg Tablet) 20 mg PO QHS [facility] Last Admin: 05/23/20 22:25 Dose: 20 mg Documented by: Sodium Chloride (0.9% Saline Lock 10 Ml Syringe) 10 - 40 ml IV UD PRN PRN Reason: SALINE FLUSH Last Admin: 05/24/20 06:37 Dose: 10 ml Documented by: Warfarin Sodium (Warfarin 2.5 Mg Tablet) 2.5 mg PO WeTh@170 [facility] Last Admin: 05/23/20 17:45 Dose: 2.5 mg Documented by: Warfarin Sodium (Warfarin 7.5 Mg Tablet) 7.5 mg PO DAILY@1700 [facility] Last Admin: 05/23/20 17:46 Dose: 7.5 mg Documented by: Discharge Activity: May Not Drive, Use Walker Weight Bearing Status: No weight bearing - No weightbearing right foot Keep extremity elevated above heart level: Right Leg - Keep right foot elevated with pillows. Call your doctor if your incision/area has: Continuous Slow Oozing, Sudden Increased Bleeding, Increased Pain/ Swelling, Increased Redness, Foul Smelling Discharge Call your doctor if you observe: Fever of 101 or Higher, Shortness of breath, Chest pain, Calf discomfort, Uncontrolled pain Cleanse incision/area with: - - Wound care right foot - cleanse with normal saline solution. Apply Aquacel Ag to wound site, apply overlying gauze, kerlix and chelsey dressing - change daily. Home Medications: Medications to take at Discharge Aspirin [Aspirin, Baby] 81 mg PO DAILY@199905/30/16 Multivitamins,Therapeutic [Multivitamin] 1 tab PO DAILY 02/24/17 albuterol sulfate 90 mcg/actuation aerosol inhaler 1 inh INHALATION DAILY PRN PRN 03/26/17 duloxetine 60 mg capsule,delayed release 60 mg PO DAILY 07/20/18 fluticasone propionate 50 mcg/actuation nasal spray,suspension 2 spray INTRANASAL QDAY #1 device 01/04/19 metformin 500 mg tablet 250 mg PO DAILY tab 08/16/19 Pravastatin Sodium 20 mg PO QHS 10/18/19 warfarin 7.5 mg tablet 7.5 mg PO DAILY #90 tab 04/19/20 Cholecalciferol (Vitamin D3) [D3-50] 1,250 mcg PO MO 05/21/20 Docusate Sodium 100 mg PO QHS 05/21/20 Guaifenesin [Mucinex] 1,200 mg PO BID 05/21/20 Loratadine 10 mg PO DAILY 05/21/20 Melatonin 5 mg PO QHS 05/21/20 Metoprolol Tartrate [Lopressor (beta radha)] 25 mg PO BID 05/21/20 Omeprazole 40 mg PO DAILY 05/21/20 Potassium Chloride [Klor-Con M20] 40 meq PO DAILY 05/21/20 Torsemide 40 mg PO DAILY 05/21/20 Warfarin Sodium 2.5 mg PO WETH 05/21/20 Clindamycin [Cleocin] 300 mg PO Q8H #15 cap 05/23/20 Hydrocodone Bitart/Apap 5-325 [[place] 5MG-325MG] 1 tab PO Q6H PRN PRN 4 Days #10 tab 05/23/20 DiphenhydrAMINE [Benadryl] 25 mg PO DAILY PRN PRN #10 cap 05/24/20 Enoxaparin [Lovenox] 120 mg SC Q12@0600,1800 syringe 05/24/20 Following Prescriptions Were Given to Patient: DiphenhydrAMINE [Benadryl] 25 mg PO DAILY PRN PRN #10 cap PRN Reason: foot itching Clindamycin [Cleocin] 300 mg PO Q8H #15 cap Prescription Printed Hydrocodone Bitart/Apap 5-325 [[place] 5MG-325MG] 1 tab PO Q6H PRN PRN 4 Days #10 tab PRN Reason: Pain Transmission Status: Received by [id number] - Please follow up with your Primary Care Physician in: within 1-2 weeks of discharge Please Follow Up With: Eber Fleming DPM - Office number: [phone], follow up sooner if needed When: Thursday05/29/2020- [facility] to schedule time Disposition: Longterm facility Patient Condition:: Good Medical Necessity - Tobacco Use Smoking Status: Never smoker Tobacco Use: Non-smoker Meaningful Use Info Meaningful Use Diagnoses (Choose all that apply): None applicable
[2020-05-24] MEDS: Furosemide 80 MG Tablet PO (08:41)
[2020-05-24] MEDS: DULoxetine Hcl 60 MG Capsule PO (08:41)
[2020-05-24] MEDS: Potassium Chloride Oral Tablet 20 MEQ 40 MEQ PO (08:41)
[2020-05-24] MEDS: Pantoprazole Sodium 40 MG Tablet PO (08:41)
[2020-05-24] MEDS: Loratadine 10 MG Tablet PO (08:41)
[2020-05-24 08:42] VITALS: PULSE 73
[2020-05-24] MEDS: Multivitamins,Therapeutic Tablet 1 TABLET PO (08:42)
[2020-05-24] MEDS: Fluticasone 0.05% 1 SPRAY NASAL.SRY 2 SPRAY NASAL (08:42)
[2020-05-24] MEDS: Metoprolol Tartrate 25 MG Tablet PO (08:42)
[2020-05-24 08:43] VITALS: BP 130/56; PULSE 71; RESP 15; TEMP 36.3; O2SAT 95
--- NOTE | 2020-05-24 10:38 | PCM.HP.ID ---
Reason for Consult: cellulitis Consulted by: Dr. Fleming History of Present Illness: The patient is a 60 year old F with chronic anticoag due to valve replacement, presented with hematoma and bleeding from R foot. Had trauma, complicated by hematoma, had I&D done by Dr. Fleming, complicated by bleeding. On clinda, feeling fine, no fever, no n/v/d. Plan is d/c home today. Reports rash/itching with keflex, no issues with ceftriaxone previously. Full ROS performed and neg except as noted above. - Medical History Past Medical History (Chronic Problems): Chronic Problems (Last Reviewed 04/10/20 @ 15:[address] 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 Mitral valve replacement with 29-mm St. Rob Mechanical prosthesis. Aortic valve replacement with a 19-mm On-X Mechanical prosthesis. 05/2016 Nonrheumatic aortic (valve) stenosis with insufficiency (Chronic) Nonrheumatic mitral valve insufficiency (Chronic) History of mitral valve replacement with mechanical valve (Chronic 05/13/16) History of mechanical aortic valve replacement (Chronic 05/13/16) Secondary pulmonary arterial hypertension (Chronic) Chronic diastolic (congestive) heart failure (Chronic) Left bundle branch block (Chronic) Essential (primary) hypertension (Chronic) HLD (hyperlipidemia) (Chronic) Obstructive sleep apnea (Chronic) Asthma (Chronic) Narcolepsy (Chronic) Endometrial cancer (Chronic) Robotic hysterectomy wit bilateral salpingo-oophorectomy and lymph node sampling care home (current) use of anticoagulants (Chronic) Allergies/Adverse Reactions: Allergies clarithromycin [From Biaxin] Allergy (Severe, Verified 05/21/20 13:59) SOB, hives and swelling cephalexin [Cephalexin] Allergy (Verified 05/21/20 13:59) Rash simvastatin Allergy (Verified 05/21/20 13:59) Rash sulfamethoxazole Allergy (Verified 05/21/20 13:59) Rash trimethoprim Allergy (Verified 05/21/20 17:35) Rash/leg swelling bupropion Adverse Reaction (Severe, Verified 05/21/20 13:59) worsened depression ciprofloxacin Adverse Reaction (Verified 05/21/20 17:35) Itching Macrolide Antibiotics Adverse Reaction (Verified 05/21/20 13:59) Unknown Penicillins Adverse Reaction (Verified 05/21/20 13:59) Unknown adhesive tape Allergy (Uncoded 05/21/20 13:59) Itching Home Medications: Ambulatory Orders Medication Instructions Recorded Aspirin [Aspirin, Baby] 81 mg PO DAILY@199905/30/16 Multivitamins,Therapeutic 1 tab PO DAILY 05/30/16 [Multivitamin] albuterol sulfate 90 mcg/actuation 1 inh INHALATION DAILY PRN PRN 03/26/17 aerosol inhaler duloxetine 60 mg capsule,delayed 60 mg PO DAILY 07/20/18 release fluticasone propionate 50 2 spray INTRANASAL QDAY #1 device 01/04/19 mcg/actuation nasal spray,suspension metformin 500 mg tablet 250 mg PO DAILY tab 08/16/19 Pravastatin Sodium 20 mg PO QHS 10/18/19 warfarin 7.5 mg tablet 7.5 mg PO DAILY #90 tab 04/19/20 Cholecalciferol (Vitamin D3) 1,250 mcg PO MO 05/21/20 [D3-50] Docusate Sodium 100 mg PO QHS 05/21/20 Guaifenesin [Mucinex] 1,200 mg PO BID 05/21/20 Loratadine 10 mg PO DAILY 05/21/20 Melatonin 5 mg PO QHS 05/21/20 Metoprolol Tartrate [Lopressor 25 mg PO BID 05/21/20 (beta radha)] Omeprazole 40 mg PO DAILY 05/21/20 Potassium Chloride [Klor-Con M20] 40 meq PO DAILY 05/21/20 Torsemide 40 mg PO DAILY 05/21/20 Warfarin Sodium 2.5 mg PO WETH 05/21/20 Clindamycin [Cleocin] 300 mg PO Q8H #15 cap 05/23/20 Hydrocodone Bitart/Apap 5-325 1 tab PO Q6H PRN PRN 4 Days #10 tab 05/23/20 [[place] 5MG-325MG] Acetaminophen [Tylenol Tablet] 650 mg PO Q6H PRN PRN tab 05/24/20 Enoxaparin [Lovenox] 120 mg SC Q12@0600,1800 syringe 05/24/20 - Social History Tobacco Use: non-smoker Vital Signs Temp Pulse Resp BP Pulse Ox 97.4 F L 71 15 130/56 H 95 05/24/20 08:43 05/24/20 08:43 05/24/20 08:43 05/24/20 08:43 05/24/20 08:43 Oxygen Flow Rate (L/min) 2 Oxygen Delivery Method Room Air Weight: 117.571 kg Body Mass Index (BMI) 39.4 Microbiology Past 72 Hours 05/22/20 14:13 SARS-CoV-2 Antigen (Rapid) - Final Mucosa - Nose Laboratory Tests Past 24 Hrs 05/24/20 06:25 PT 15.4 H INR 1.3 - Other Studies Radiology: [] reviewed Other Studies: [] Route of nutrition/ use of supplements: [] Nutritional Intake: [] IV Site: [] Goodwin Catheter: [] - Physical Exam General: Alert, Oriented x3, Cooperative, No apparent distress HEENT: Atraumatic, PERRLA, EOMI Neck: Supple, No Nodes Lungs: Clear to auscultation, Normal air movement Cardiovascular: Regular rate, Regular Rhythm Abdomen: Soft, Non Tender, Non-Distended Extremities: No edema Skin: Ulcer/ Wound - reviewed photo Musculoskeletal: No Tenderness to Palpation of Joints or Extremities Neurological: Cranial nerves II-XII grossly intact - Assessment/Plan Antibiotics: [] Assessment/Plan: [] R foot hematoma s/p I&D - wound cx neg, but gram stain with some strep-like bacteria seen. Overall low suspicion for infection, ok to complete short course of po clinda at discharge just in case some infection present. Something like omnicef would also be a po option in the future for strep coverage given she has tolerated ceftriaxone here in the past. Will follow as needed, thank you, contacted Dr. Fleming, d/w therapeutic case manager.
[2020-05-24 11:15] LABS: Bedside Glucose 131 mg/dL (70-110)
[2020-05-24 11:33] VITALS: BP 131/57; PULSE 71; RESP 17; TEMP 36.9; O2SAT 92
--- NOTE | 2020-05-24 12:00 | PHA.DC.MR ---
Pharmacy Service has performed discharge medication reconciliation for this patient upon transfer to [facility]. Home Medications Aspirin [Aspirin, Baby] 81 mg PO DAILY@199905/30/16 Multivitamins,Therapeutic [Multivitamin] 1 tab PO DAILY 05/30/16 albuterol sulfate 90 mcg/actuation aerosol inhaler 1 inh INHALATION DAILY PRN PRN 03/26/17 duloxetine 60 mg capsule,delayed release 60 mg PO DAILY 07/20/18 fluticasone propionate 50 mcg/actuation nasal spray,suspension 2 spray INTRANASAL QDAY #1 device 01/04/19 metformin 500 mg tablet 250 mg PO DAILY tab 08/16/19 Pravastatin Sodium 20 mg PO QHS 10/18/19 warfarin 7.5 mg tablet 7.5 mg PO DAILY #90 tab 04/19/20 Cholecalciferol (Vitamin D3) [D3-50] 1,250 mcg PO MO 05/21/20 Docusate Sodium 100 mg PO QHS 05/21/20 Guaifenesin [Mucinex] 1,200 mg PO BID 05/21/20 Loratadine 10 mg PO DAILY 05/21/20 Melatonin 5 mg PO QHS 05/21/20 Metoprolol Tartrate [Lopressor (beta radha)] 25 mg PO BID 05/21/20 Omeprazole 40 mg PO DAILY 05/21/20 Potassium Chloride [Klor-Con M20] 40 meq PO DAILY 05/21/20 Torsemide 40 mg PO DAILY 05/21/20 Warfarin Sodium 2.5 mg PO WETH 05/21/20 Clindamycin [Cleocin] 300 mg PO Q8H #15 cap 05/23/20 Hydrocodone Bitart/Apap 5-325 [[place] 5MG-325MG] 1 tab PO Q6H PRN PRN 4 Days #10 tab 05/23/20 DiphenhydrAMINE [Benadryl] 25 mg PO DAILY PRN PRN #10 cap 05/24/20 Enoxaparin [Lovenox] 120 mg SC Q12@0600,1800 syringe 05/24/20 The patient's discharge medication list was reviewed for discrepancies and discrepancies were resolved.
--- NOTE | 2020-05-24 12:29 | CASEMGMT ---
Social Work Note Pt is able to discharge to [facility] today. STEPHEN faxed completed discharge paperwork to [facility] including transfer to extended care facility, signed medication list, any scripts, COVID screening tool and PAS/RR. Original in SNF folder and copy on pt's chart. STEPHEN completed PAS/RR in [facility]. Original in SNF folder and copy on pt's chart. SW in to speak with pt. SW updated pt that she will be discharged to [facility] today, states she would like to transport via wheelchair van. SW reviewed chart, pt has to keep foot elevated. STEPHEN placed a call to [facility] and spoke with Jennifer. STEPHEN asked Jennifer if their wheelchairs have the leg rest that can be used to keep pt's foot elevated during transportation, Jennifer states they are able to have leg rest with wheelchair and pt can transport via wheelchair van. Physician's state they can be at [facility] around 2:00pm to transport pt. STEPHEN completed transportation form and placed on SNF folder and copy on pt's chart. STEPHEN updated pt on transportation time. STEPHEN updated RN on transportation time. STEPHEN placed a call to Selam at [facility] and updated her on transportation time. Plan: [facility] skilled today with [facility] transporting pt via wheelchair van at 2:00pm Latosha JONES, CHEMISTRY ACCOUNT MANAGER
--- NOTE | 2020-05-24 12:33 | NURSING ---
attempted to phone nurse to nurse report to the [facility]- nurse unavailable at present time. phone number to [facility] provided and asked for nurse to phone back to [facility] when she is available.
--- NOTE | 2020-05-24 15:08 | PCM.PN.HOSP ---
Vitals/I&O's: Vital Signs Temp Pulse Resp BP Pulse Ox 98.4 F 71 17 131/57 H 92 05/24/20 11:33 05/24/20 11:33 05/24/20 11:33 05/24/20 11:33 05/24/20 11:33 Oxygen Flow Rate (L/min) 2 Oxygen Delivery Method Room Air Weight: 117.571 kg Body Mass Index (BMI) 39.4 Intake and Output for Last 24 Hours 05/22/20 05/23/20 05/24/20 23:59 23:59 23:59 Intake Total 1262 / 1262 1262 / 1262 2458 / 2458 Output Total 1400 / 1400 Balance -138 / -138 1262 / 1262 2458 / 2458 Microbiology Past 72 Hours 05/22/20 14:13 Mucosa - Nose SARS-CoV-2 Antigen (Rapid) - Final Laboratory Results 05/23/20 16:56: POC Glucose 131 H 05/23/20 22:22: POC Glucose 131 H 05/24/20 06:25: PT 15.4 H, INR 1.3 05/24/20 06:35: POC Glucose 130 H 05/24/20 11:12: POC Glucose 131 H STROKE Vital Signs/Narrative: Vital Signs Temp Pulse Resp BP Pulse Ox 05/24/20 11:33 98.4 F 71 17 131/57 H 92 Medical Necessity - Tobacco Use Smoking Status: Never smoker Tobacco Use: Non-smoker Assessment/Plan All Active Problems (Last Reviewed 04/10/20 @ 15:[address] Dick Whelan MD) Dyspnea (Acute) Fatigue (Acute) SOB (shortness of breath) (Resolved)
--- NOTE | 2020-05-24 16:03 | NURSING ---
Late entry:Student documentation reviewed.
== END 2020-05-24 14:39 | disposition skilled nursing facility (03) ==
LOC: ED 14:50 → MS3 16:55
PROVIDERS: Family Medicine; Admitting Provider Podiatrist; Emergency Provider Student in an Organized Health Care Education/Training Program; Visit Provider Internal Medicine
DX: S90.31XA Contusion of right foot, initial encounter (principal); W22.8XXA Striking against or struck by other objects, initial encounter; Y93.9 Activity, unspecified; Y92.9 Unspecified place or not applicable; Y99.9 Unspecified external cause status; E78.5 Hyperlipidemia, unspecified; G47.33 Obstructive sleep apnea (adult) (pediatric); E66.01 Morbid (severe) obesity due to excess calories; E11.9 Type 2 diabetes mellitus without complications; I11.0 Hypertensive heart disease with heart failure; I27.21 Secondary pulmonary arterial hypertension; L08.9 Local infection of the skin and subcutaneous tissue, unspecified; L40.9 Psoriasis, unspecified; I50.32 Chronic diastolic (congestive) heart failure; J45.909 Unspecified asthma, uncomplicated; Z95.2 Presence of prosthetic heart valve; Z23 Encounter for immunization; Z79.82 Long term (current) use of aspirin; Z79.899 Other long term (current) drug therapy; Z79.01 Long term (current) use of anticoagulants; Z79.84 Long term (current) use of oral hypoglycemic drugs; Z98.890 Other specified postprocedural states; Z68.39 Body mass index [BMI] 39.0-39.9, adult
CPT/HCPCS: 36415; 80048; 82962; 85025; 85610; 87426; 96365; 96366; 96372; 96375; 96376; 97110; 97116; 97162; 97166; 97530; 97802; 99218; 99251; 99284; 90686; A4216; G0378; G0463

== ENCOUNTER → 2020-05-21 18:23 | Outpatient (CLI) | payer MEDICAID, SELFPAY ==
[2020-05-21 17:28] VITALS: BMI 39.4
== END ==
PROVIDERS: Referring Provider Podiatrist; Visit Provider Podiatrist
DX: S90.31XA Contusion of right foot, initial encounter (principal)
CPT/HCPCS: 87070; 87075; 87205

== ENCOUNTER 2020-05-25 20:13 | Emergency (ER) | payer MEDICAID, SELFPAY ==
[2020-05-25 20:14] VITALS: BP 151/67; PULSE 58; RESP 16; TEMP 36.4; O2SAT 92; BMI 41.3
--- NOTE | 2020-05-25 20:31 | EKG12_ITS ---
Test Reason : DYSRHYTHMIA Blood Pressure : / mmHG Vent. Rate : 078 BPM Atrial Rate : 078 BPM P-R Int : 264 ms QRS Dur : 150 ms QT Int : 484 ms P-R-T Axes : 000 -42 137 degrees QTc Int : 551 ms Sinus rhythm with 1st degree A-V block with Premature atrial complexes with Aberrant conduction Left axis deviation Left bundle branch block Abnormal ECG Confirmed by KATRINA ARREOLA, TENNILLE ([id number]), rewrite editor MOOK QUEEN ([id number]) on 05/29/2020 11:22:22 AM Referred By: Confirmed By:TENNILLE HERNDON MD
[2020-05-25 20:39] LABS: Absolute Neutrophil Count 4.6 X10^3/uL (2.0-7.7); Basophil# 0.04 X10^3/uL; Basophil% 0.4 % (0-1); Eosinophils% 3.3 % (0-5); Hematocrit 34.2 % (37-47); Hemoglobin 11.1 g/dL (12.0-15.0); Lymphocyte % 36.1 % (19-41); Mean Corp Hgb Conc 32.5 g/dL (32-36); Mean Corpuscular Hgb 31.1 pg (27.0-32.0); Mean Corpuscular Volume 95.8 fL (81-99); Mean Platelet Vol. 10.4 fl (6.2-12.0); Monocyte% 9.8 % (0-10); NRBC Flagged by Analyzer 0 % (0-5); Neutrophil # 4.55 X10^3/uL (2.7-7.7); Neutrophil % 49.9 % (47-70); Platelet Count 265 K/mm3 (150-450); RBC Distribution Width CV 14.1 % (11.6-14.6); Red Blood Count 3.57 M/mm3 (4.2-5.4); White Blood Count 9.1 K/mm3 (4.4-11.0)
--- NOTE | 2020-05-25 20:40 | ED.DCSUM_ITS ---
- ER Visit Summary Date of Service: 05/25/20 Chief Complaint: Abnormal labs History of Present Illness: The patient is a 60 F presenting from senior living due to abnormal labs. Patient was admitted to the hospital and discharged yesterday. She was admitted for infected hematoma right foot. She was sent to half-way facility. She is on clindamycin currently. Her sodium today was 115. Denies fever. Denies other complaints. Physical Examination: Vitals are stable. Patient is afebrile. Alert no acute distress. HEENT exam is unremarkable. Neck is supple. Lungs are clear and equal bilaterally. Heart is regular rate and rhythm. Abdomen is soft nontender nondistended. Extremities right foot dressing intact. Normal cap refill. Skin is warm and dry. No focal neurologic deficit. Remainder of exam is unremarkable. Emergency Department Course and Treatment: EKG is sinus rhythm rate of 78 with left bundle branch block, similar to previous. CBC shows hemoglobin 11.1, chemistries are unremarkable. Her sodium is 138. INR is 1.5. She is on Lovenox at rehab due to her subtherapeutic INR. I believe the sodium of 115 was a lab error. She is feeling well. She will be discharged back to the senior living. Disposition: Discharge Impression: Reported hyponatremia This note was generated with [employer]iona dictation software. It may contain incorrect words, spelling, and punctuation that were not noted in review of the chart prior to signing ED Disposition - Plan for ED [facility] -
[2020-05-25 20:51] LABS: Anion Gap 3 (5-15); BUN 14 mg/dL (7-18); BUN/Creat Ratio 17.9 RATIO (10-20); Calcium,Total 8.4 mg/dL (8.5-10.1); Chloride 103 mmol/L (98-107); Creatinine, Serum 0.78 mg/dL (0.55-1.02); EST Glomerular Filtration Rate 81 mL/min (>60); Est Glom Filt Rate - Afr Amer 98 mL/min (>60); Estimated Creatinine Clearance 76.45 ml/min; Glucose 120 mg/dL (74-106); Potassium 3.4 mmol/L (3.5-5.1); Sodium Level 138 mmol/L (136-145)
[2020-05-25 21:06] LABS: International Normalized Ratio 1.5; Prothrombin Time (Protime)PT. 17.3 SECONDS (11.7-14.9)
--- NOTE | 2020-05-25 21:24 | DCINST.ED_ITS ---
ED Disposition - Plan for ED Patient: Referrals: [facility],Vidhi Hooks [Primary Care Provider] -
--- NOTE | 2020-05-25 21:24 | ED.DEP ---
ED Disposition - Plan for ED Patient: Referrals: [facility],Vidhi Hooks [Primary Care Provider] -
[2020-05-25 21:35] VITALS: BP 129/60; PULSE 88; RESP 18; O2SAT 99
--- NOTE | 2020-05-25 21:47 | ED.RN ---
report called to elke at the e
[2020-05-25 23:32] VITALS: BP 132/81; PULSE 70; RESP 17; O2SAT 99
== END 2020-05-26 00:33 | disposition skilled nursing facility (03) ==
LOC: ED 20:53
PROVIDERS: Emergency Provider Emergency Medicine
DX: E87.1 Hypo-osmolality and hyponatremia (principal); I44.7 Left bundle-branch block, unspecified; I11.0 Hypertensive heart disease with heart failure; I50.9 Heart failure, unspecified; K21.9 Gastro-esophageal reflux disease without esophagitis; E11.9 Type 2 diabetes mellitus without complications; E78.00 Pure hypercholesterolemia, unspecified; G47.33 Obstructive sleep apnea (adult) (pediatric); J45.909 Unspecified asthma, uncomplicated; Z79.01 Long term (current) use of anticoagulants; Z79.82 Long term (current) use of aspirin; Z79.84 Long term (current) use of oral hypoglycemic drugs; Z79.899 Other long term (current) drug therapy
CPT/HCPCS: 80048; 85025; 85610; 93005; 99284; A4216

== ENCOUNTER 2020-06-27 08:15 | Outpatient (RCR) | payer MEDICAID, SELFPAY ==
[2020-06-06 08:05] VITALS: BP 130/48; PULSE 59; RESP 18; TEMP 36.6; BMI 41.3
--- NOTE | 2020-06-06 12:05 | PCM.WC.HP ---
(1) Ulcer of right foot with fat layer exposed Status: Acute Code(s): L97.512 - Non-pressure chronic ulcer of other part of right foot with fat layer exposed (2) Hematoma of right foot Status: Acute Code(s): S90.31XA - Contusion of right foot, initial encounter (3) assisted (current) use of anticoagulants Status: Chronic Code(s): Z79.01 - assisted (current) use of anticoagulants History of Present Illness Date of Service: 06/06/20 Chief Complaint: This 60-year-old female with significant past medical history cardiac disease on chronic anticoagulation medication dropped a water bottle on her right foot on May 13, 2020 which resulted in hematoma form a, wound, cellulitis which required hospital admission. She is now residing in a retirement facility and has been having the dressing packed daily. She relates her pain is decreased and the redness has resolved. She denies odor. She has completed her antibiotics. She denies cramping in her legs while walking. She denies fever, chill, nausea, vomiting today. She presents in a wheelchair today without a shoe in place. History of Wound: Stable Past Medical History Past Medical History: Chronic Problems (Last Reviewed 04/10/20 @ 15:[address] 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 Mitral valve replacement with 29-mm [employer] Mechanical prosthesis. Aortic valve replacement with a 19-mm On-X Mechanical prosthesis. 05/2016 Nonrheumatic aortic (valve) stenosis with insufficiency (Chronic) Nonrheumatic mitral valve insufficiency (Chronic) History of mitral valve replacement with mechanical valve (Chronic 05/13/16) History of mechanical aortic valve replacement (Chronic 05/13/16) Secondary pulmonary arterial hypertension (Chronic) Chronic diastolic (congestive) heart failure (Chronic) Left bundle branch block (Chronic) Essential (primary) hypertension (Chronic) HLD (hyperlipidemia) (Chronic) Obstructive sleep apnea (Chronic) Asthma (Chronic) Narcolepsy (Chronic) Endometrial cancer (Chronic) Robotic hysterectomy wit bilateral salpingo-oophorectomy and lymph node sampling assisted (current) use of anticoagulants (Chronic) Surgical History: - - 2002 aortic root surgery, tubal ligation, mitral and aortic valve replacements in May 2016. I&D right foot hematoma Allergies/Adverse Reactions: Allergies clarithromycin [From Biaxin] Allergy (Severe, Verified 05/21/20 13:59) SOB, hives and swelling cephalexin [Cephalexin] Allergy (Verified 05/21/20 13:59) Rash simvastatin Allergy (Verified 05/21/20 13:59) Rash sulfamethoxazole Allergy (Verified 05/21/20 13:59) Rash trimethoprim Allergy (Verified 05/21/20 17:35) Rash/leg swelling bupropion Adverse Reaction (Severe, Verified 05/21/20 13:59) worsened depression ciprofloxacin Adverse Reaction (Verified 05/21/20 17:35) Itching Macrolide Antibiotics Adverse Reaction (Verified 05/21/20 13:59) Unknown Penicillins Adverse Reaction (Verified 05/21/20 13:59) Unknown adhesive tape Allergy (Uncoded 05/21/20 13:59) Itching Home Medications: Ambulatory Orders Medication Instructions Recorded Aspirin [Aspirin, Baby] 81 mg PO DAILY@199905/30/16 Multivitamins,Therapeutic 1 tab PO DAILY 05/30/16 [Multivitamin] albuterol sulfate 90 mcg/actuation 1 inh INHALATION DAILY PRN PRN 03/26/17 aerosol inhaler duloxetine 60 mg capsule,delayed 60 mg PO DAILY 07/20/18 release fluticasone propionate 50 2 spray INTRANASAL QDAY #1 device 01/04/19 mcg/actuation nasal spray,suspension metformin 500 mg tablet 250 mg PO DAILY tab 08/16/19 Pravastatin Sodium 20 mg PO QHS 10/18/19 warfarin 7.5 mg tablet 7.5 mg PO DAILY #90 tab 04/19/20 Cholecalciferol (Vitamin D3) 1,250 mcg PO MO 05/21/20 [D3-50] Docusate Sodium 100 mg PO QHS 05/21/20 Guaifenesin [Mucinex] 1,200 mg PO BID 05/21/20 Loratadine 10 mg PO DAILY 05/21/20 Melatonin 5 mg PO QHS 05/21/20 Metoprolol Tartrate [Lopressor 25 mg PO BID 05/21/20 (beta radha)] Omeprazole 40 mg PO DAILY 05/21/20 Potassium Chloride [Klor-Con M20] 40 meq PO DAILY 05/21/20 Torsemide 40 mg PO DAILY 05/21/20 Warfarin Sodium 2.5 mg PO WETH 05/21/20 DiphenhydrAMINE [Benadryl] 25 mg PO DAILY PRN PRN #10 cap 05/24/20 - Family History Maternal Family History: Family History (Last Reviewed 04/10/20 @ 15:[address] Dick Whelan MD) Father CAD (coronary artery disease) Hypertension Mother Sudden cardiac Hypertension Abdominal aortic aneurysm rupture Brother Hypertension Sister Hypertension - - asthma Paternal Family History: Family History (Last Reviewed 04/10/20 @ 15:[address] Dick Whelan MD) Father CAD (coronary artery disease) Hypertension Mother Sudden cardiac Hypertension Abdominal aortic aneurysm rupture Brother Hypertension Sister Hypertension Heart Disease - at 77, - - Obesity Sibling Family History: Family History (Last Reviewed 04/10/20 @ 15:[address] Dick Whelan MD) Father CAD (coronary artery disease) Hypertension Mother Sudden cardiac Hypertension Abdominal aortic aneurysm rupture Brother Hypertension Sister Hypertension COPD, Diabetes, High Cholesterol, Heart Disease, Hypertension, - - Obesity Offspring Family History: Family History (Last Reviewed 04/10/20 @ 15:[address] Dick Whelan MD) Father CAD (coronary artery disease) Hypertension Mother Sudden cardiac Hypertension Abdominal aortic aneurysm rupture Brother Hypertension Sister Hypertension Asthma, - - Fatty liver Lives: Shelter Smoking Status: Never smoker Tobacco Use: Non-smoker Review of Systems Constitutional: Denies: Chills, Fever Cardiovascular: Denies: Claudication Gastrointestinal: Denies: Nausea, Vomiting Musculoskeletal: Reports: Foot Pain - decreasing. Denies: Leg Pain Skin: Reports: Skin Changes, Wounds Neurological: Reports: Balance problems, Incoordination Hematologic/ Lymphatic: Reports: Easy Bruising, Easy Bleeding - Physical Exam Vital Signs Temp Pulse Resp BP 98 F 59 L 18 130/48 H 06/06/20 08:05 06/06/20 08:05 06/06/20 08:05 06/06/20 08:05 General: Alert, Oriented x3, Cooperative, No apparent distress HEENT: Atraumatic Extremities: No cyanosis, Capillary Refill Less than 3 Seconds - All digits right foot, No Calf Tenderness - Negative Sophia and Hein sign, Peripheral Pulses Normal - Palpable dorsalis pedis pulse, nonpalpable PT pulse, - - Active range of motion digits and ankle in all directions Skin: Ulcer/ Wound - Dorsal lateral forefoot skin discontinuity with visualized underlying tendon that is healthy and also fascia and subcutaneous tissue. There is no peripheral erythema, purulence, odor, necrosis infection. Her skin is atrophic and hairless. Wound Measurements and Assessment - Nurse 1 - General Ulcer Measurement Start: 06/06/20 07:59 Freq: Status: Active Protocol: Activity Type Activity Date Activity User E-Sign Co-Sign Detail Recorded Client Recorded Date Recorded By Document 06/06/20 08:05 MILLA [id number] 06/06/20 08:30 DL 06/06/20 08:05 Wound Center Nurse 1 [Ulcer Assessment] #1 R Foot Dorsal -Current Size (cm) - Length 1.2 -Current Size (cm) - Width 0.5 -Current Size (cm) - Depth 0.7 -Total Square Cm 0.60 -Photo Taken Yes -Maximum Distance #2 (cm) 0.5 -Circular Undermining Yes -Classification - Alvarez Grading ( Grade 3 Diabetic Ulcer) -Exudate Amt Medium -Exudate Type Serosanguineous -Wound Margin Distinct, Outline Attached -Granulation Amt Large (67-100%) -Granulation Quality Red -Necrosis Amt Small (1-33%) -Necrotic Tissue Type Adherent Slough -Structure Exposed N/A -Texture (Mary-wound Skin Appearance) Localized Edema ,Scarring -Moisture (Mary-wound Skin Appearance No Abnormality ) -Color (Mary-wound Skin Appearance) Erythema -Temperature (Mary-wound Skin No Abnormality Appearance) (Pt Warm) -Tenderness on Palpation (Mary-wound Yes Skin Appearance) -Ulcer Cleansing Wound Cleanser -Foul Odor after Cleansing No -Anesthetic Used 4% Lidocaine Solution - Nurse 2 - General Ulcer CM Notes Start: 06/06/20 07:59 Freq: Status: Active Protocol: Activity Type Activity Date Activity User E-Sign Co-Sign Detail Recorded Client Recorded Date Recorded By Document 06/06/20 09:07 NELIDA [id number] 06/06/20 09:16 NELIDA 06/06/20 09:07 Wound Center Nurse 2 [Procedure/Treatment] -Time 09:07 -Correct Patient No -Correct Side, Site, Position Yes -Correct Procedure Yes -Procedure Performed Yes -Type of Procedure Debridement -Clinical Debridement Subcutaneous -Tissue Removed Subcutaneous -Post Debridement (cm) - Length 1.2 -Post Debridement (cm) - Width 0.5 -Post Debridement (cm) - Depth 0.8 -Total Square (Post) (cm) 0.60 -Area of Debridement (cm) - Length 1.2 -Area of Debridement (cm) - Width 0.5 -Total Square (Area) (cm) 0.60 -Tunneling No -Undermining/Tunneling No -Circular Undermining No -Wound/Ulcer Outcome Not Healed -Ulcer Cleansing Rinsed/ Irrigated with Saline -Foul Odor after Cleansing No -Bioengineered Tissue No -Bleeding Controlled with Pressure -Offloading Yes -Type of Offloading Surgical Shoe -Treatment Response Procedure Tolerated Well -Debridement - Subq, 1st 20sq cm Yes [See Physician Procedure note for Specifics] Pain Scale: 0-10 Numeric [Pain] -Is Patient Pain Free? Yes - Nurse 3 - General Ulcer D/C NN Start: 06/06/20 07:59 Freq: Status: Active Protocol: Activity Type Activity Date Activity User E-Sign Co-Sign Detail Recorded Client Recorded Date Recorded By Document 06/06/20 09:27 MILLA [id number] 06/06/20 09:28 DL 06/06/20 09:27 Wound Care Nurse 3 [Wound Dressing] #1 R Foot Dorsal -Ulcer Cleansing Rinsed/ Irrigated with Saline -Foul Odor after Cleansing No -Other Dressing Betadine -Primary Dressing Covered/Secured Dry Gauze & with Roll Gauze, Secured with Tape -Other Covering Sutures today [Compression Applied] Right -Compression Wrap Rios Wrap [Post Procedure Tolerated] -Treatment Response Procedure Tolerated Well Pain Scale: 0-10 Numeric [Pain] -Is Patient Pain Free? Yes - Visit Discharge [Visit Discharge Information] -Discharge Condition Stable -Ambulatory Status Ambulatory, Wheelchair -Transportation [address] Musculoskeletal: Muscle Wasting, - - Compartments remain soft to palpate Neurological: Sensory exam intact to light touch and pain Psych/Mental Status: Normal Affect, Appropriate Debridement Note Post-Debridement Measurements/Treatment - Nurse 2 - General Ulcer CM Notes Start: 06/06/20 07:59 Freq: Status: Active Protocol: Activity Type Activity Date Activity User E-Sign Co-Sign Detail Recorded Client Recorded Date Recorded By Document 06/06/20 09:07 NELIDA [id number] 06/06/20 09:16 NELIDA 06/06/20 09:07 Wound Center Nurse 2 #1 R Foot Dorsal -Time 09:07 -Correct Patient No -Correct Side, Site, Position Yes -Correct Procedure Yes -Procedure Performed Yes -Type of Procedure Debridement -Clinical Debridement Subcutaneous -Tissue Removed Subcutaneous -Post Debridement (cm) - Length 1.2 -Post Debridement (cm) - Width 0.5 -Post Debridement (cm) - Depth 0.8 -Total Square (Post) (cm) 0.60 -Area of Debridement (cm) - Length 1.2 -Area of Debridement (cm) - Width 0.5 -Total Square (Area) (cm) 0.60 -Tunneling No -Undermining/Tunneling No -Circular Undermining No -Wound/Ulcer Outcome Not Healed -Ulcer Cleansing Rinsed/ Irrigated with Saline -Foul Odor after Cleansing No -Bioengineered Tissue No -Bleeding Controlled with Pressure -Offloading Yes -Type of Offloading Surgical Shoe -Treatment Response Procedure Tolerated Well -Debridement - Subq, 1st 20sq cm Yes Pain Scale: 0-10 Numeric Is Patient Pain Free? Yes - Nurse 3 - General Ulcer D/C NN Start: 06/06/20 07:59 Freq: Status: Active Protocol: Activity Type Activity Date Activity User E-Sign Co-Sign Detail Recorded Client Recorded Date Recorded By Document 06/06/20 09:27 DL [id number] 06/06/20 09:28 DL 06/06/20 09:27 Wound Care Nurse 3 #1 R Foot Dorsal -Ulcer Cleansing Rinsed/ Irrigated with Saline -Foul Odor after Cleansing No -Other Dressing Betadine -Primary Dressing Covered/Secured with Dry Gauze & Roll Gauze, Secured with Tape -Other Covering Sutures today Right -Compression Wrap Rios Wrap Treatment Response Procedure Tolerated Well Pain Scale: 0-10 Numeric Is Patient Pain Free? Yes WC - Visit Discharge Discharge Condition Stable Ambulatory Status Ambulatory, Wheelchair Transportation [address] Wound debrided: dorsal forefoot Laterality: Right Type of Debridement: Excisional debridement Anesthesia Used: 5% Lidocaine Gel, - - 2cc of 1% lidocaine with epi local infiltration to delayed primary closure/ ulcer site Depth: in the subcutaneous layer Percentage of wound debrided: 100 Instrument Used: #15 blade Tissue Removed: fibrous, devitalized subcutaneous, biofilm, slough Severity: Fat Layer Exposed Amount of bleeding with debridement: Mild Bleeding Controlled with: Pressure Patient tolerated procedure well delayed primary closure w/ 2-0 prolene (horizontal mattress and simple suture technique) Assessment/Plan Active Problems (Last Reviewed 04/10/20 @ 15:[address] Dick Whelan MD) Ulcer of right foot with fat layer exposed (Acute) Hematoma of right foot (Acute) assisted (current) use of anticoagulants (Chronic) Assessment: Wound/ulcer dorsal right foot with fat layer exposed. Traumatic hematoma now with skin discontinuity, right foot. Right foot cellulitis resolved. On chronic anticoagulation medication Plan: I reviewed and discussed her case. Debridement was performed as noted in the clinical panel. Her medical [facility] from the [facility] as well as from [facility] were reviewed. Pressure was applied to maintain hemostasis. Her infection and active bleeding have resolved and her skin is able to mobilize well. I recommended a delayed primary closure today and this was performed after saline irrigation. Verbal consent was obtained and the area was anesthetized with 1% lidocaine with epinephrine. The skin edges were reapproximated utilizing horizontal mattress and simple suture technique. Betadine wet-to-dry gauze was applied and she was advised to change this this upcoming week while at the retirement facility. Is okay to gently wash the area with soap and water saline. To avoid soaking or scrubbing. To avoid wearing shoes or sandals that have a strap that touch this site or applies tension to adjacent tissues. She does have palpable pulses and if lack of healing continues noninvasive vascular studies will be ordered. To avoid tobacco products which she is currently not using. It is noted she completed a course of antibiotics and I do not recommend a refill at this time. Her local infection has resolved. To keep a close eye on return of infection which is not noted today. To continue proper nutrition to optimize healing. To return to clinic in 1 week for procedure follow-up. It is noted she is considering changing her wound center appointments to either Thursday or because her daughter would be available to take her at this time and she has a nurse. I answered all her questions. Note: [employer] speech recognition detective lieutenant software was used to create portions of this document. Sound-alike and misspelled words, as well as other detective lieutenant errors may be contained in the documentation. The medical decision making level is low. There is noted low risk of morbidity after considering this treatment plan and diagnostic data. The problems addressed require a low medical decision making level which includes two or more minor problems, a stable chronic illness, or an acute uncomplicated illness or injury.
[2020-06-13 08:13] VITALS: BP 141/84; PULSE 64; RESP 18; TEMP 36.1; BMI 41.3
[2020-06-13 08:40] VITALS: BP 141/84
--- NOTE | 2020-06-13 08:48 | PCM.WC.PN ---
(1) Ulcer of right foot with fat layer exposed Status: Acute Code(s): L97.512 - Non-pressure chronic ulcer of other part of right foot with fat layer exposed (2) Hematoma of right foot Status: Acute Code(s): S90.31XA - Contusion of right foot, initial encounter (3) [facility] (current) use of anticoagulants Status: Chronic Code(s): Z79.01 - [facility] (current) use of anticoagulants Type of Wound Date of Service: 06/13/20 Chief Complaint: Right foot hematoma with resultant wound and infection History of Wound: This 60-year-old female with significant past medical history cardiac disease on chronic anticoagulation medication dropped a water bottle on her right foot on May 13, 2020 which resulted in hematoma form a, wound, cellulitis which required hospital admission. She is now residing in a nursing home facility and had a debridement with delayed primary closure procedure performed last week. She denies redness or odor. She denies fever, chill, nausea, vomiting today. She has resumed physical therapy and is avoiding pressure to this site. Progress of Wound: Stable - Physical Exam Vital Signs Temp Pulse Resp BP 96.9 F L 64 18 141/84 H 06/13/20 08:13 06/13/20 08:13 06/13/20 08:13 06/13/20 08:40 General: Alert, Oriented x3, Cooperative, No apparent distress Extremities: No cyanosis, Capillary Refill Less than 3 Seconds, No Calf Tenderness, Diminished Peripheral Pulses, Edema - Decreased Skin: Ulcer/ Wound - Sutures are intact with coapted delayed primary closure site. No erythema, streaking, purulence, odor, necrosis, bogginess or fluctuance. Adjacent skin is atrophic Wound Measurements and Assessment WC - Nurse 1 - General Ulcer Measurement Start: 06/06/20 07:59 Freq: Status: Active Protocol: Activity Type Activity Date Activity User E-Sign Co-Sign Detail Recorded Client Recorded Date Recorded By Document 06/13/20 08:13 RB [id number] 06/13/20 08:15 RB 06/13/20 08:13 Wound Center Nurse 1 [Ulcer Assessment] #2 RIGHT DORSAL FOOT -Combined with other wound No -Current Size (cm) - Length 0.1 -Current Size (cm) - Width 0.1 -Current Size (cm) - Depth 0.1 -Total Square Cm 0.01 -Tunneling No -Undermining/Tunneling No -Circular Undermining No -Exudate Amt None Present -Wound Margin Fibrotic Scar, Thickened Scar -Granulation Amt Medium (34-66%) -Granulation Quality Franquez -Slough/Fibrin Yes -Necrosis Amt Small (1-33%) -Necrotic Tissue Type Adherent Slough -Structure Exposed N/A -Texture (Mary-wound Skin Appearance) Assessed -Moisture (Mary-wound Skin Appearance Assessed ) -Color (Mary-wound Skin Appearance) Assessed -Temperature (Mary-wound Skin No Abnormality Appearance) (Pt Warm) -Tenderness on Palpation (Mary-wound No Skin Appearance) -Ulcer Cleansing Wound Cleanser -Foul Odor after Cleansing No -Anesthetic Used 4% Lidocaine Solution - Nurse 2 - General Ulcer CM Notes Start: 06/06/20 07:59 Freq: Status: Active Protocol: Activity Type Activity Date Activity User E-Sign Co-Sign Detail Recorded Client Recorded Date Recorded By Document 06/13/20 08:25 NELIDA [id number] 06/13/20 08:27 NELIDA 06/13/20 08:25 Wound Center Nurse 2 [Procedure/Treatment] -Correct Patient No -Correct Side, Site, Position No -Correct Procedure No -Procedure Performed No -Wound/Ulcer Outcome Not Healed [See Physician Procedure note for Specifics] Pain Scale: 0-10 Numeric [Pain] -Is Patient Pain Free? Yes - Nurse 3 - General Ulcer D/C NN Start: 06/06/20 07:59 Freq: Status: Active Protocol: Activity Type Activity Date Activity User E-Sign Co-Sign Detail Recorded Client Recorded Date Recorded By Document 06/13/20 08:40 [id number] 06/13/20 08:41 RB 06/13/20 08:40 Wound Care Nurse 3 [Wound Dressing] #2 RIGHT DORSAL FOOT -Other Dressing bedatine -Primary Dressing Covered/Secured Dry Gauze with -Other Covering abd, rios [Mary-Wound Care] -Mary-Wound Care Lotion [Compression Applied] Right -Other rios Vital Signs [Blood Pressure] -Blood Pressure (90/60-120/80) 141/84 H -Blood Pressure Mean (mm Hg) 103 -Source Monitor -Position Sitting Pain Scale: 0-10 Numeric [Pain] -Is Patient Pain Free? Yes - Visit Discharge [Visit Discharge Information] -Discharge Condition Stable -Ambulatory Status Wheelchair -Transportation Private Auto -Medication Reconcilliation completed No & provided to patient/care provider -Clinical Summary of Care Provided Yes Musculoskeletal: Muscle Wasting, - - Compartments soft to palpate right foot Neurological: Sensory exam intact to light touch and pain Psych/Mental Status: Normal Affect, Appropriate Debridement Note Post-Debridement Measurements/Treatment SYD - Nurse 2 - General Ulcer CM Notes Start: 06/06/20 07:59 Freq: Status: Active Protocol: Activity Type Activity Date Activity User E-Sign Co-Sign Detail Recorded Client Recorded Date Recorded By Document 06/06/20 09:07 JF [id number] 06/06/20 09:16 JF Document 06/13/20 08:25 JF [id number] 06/13/20 08:27 JF 06/06/20 06/13/20 09:07 08:25 Wound Center Nurse 2 #2 RIGHT DORSAL FOOT -Time 09:07 -Correct Patient No No -Correct Side, Site, Position Yes No -Correct Procedure Yes No -Procedure Performed Yes No -Type of Procedure Debridement -Clinical Debridement Subcutaneous -Tissue Removed Subcutaneous -Post Debridement (cm) - Length 1.2 -Post Debridement (cm) - Width 0.5 -Post Debridement (cm) - Depth 0.8 -Total Square (Post) (cm) 0.60 -Area of Debridement (cm) - Length 1.2 -Area of Debridement (cm) - Width 0.5 -Total Square (Area) (cm) 0.60 -Tunneling No -Undermining/Tunneling No -Circular Undermining No -Wound/Ulcer Outcome Not Healed Not Healed -Ulcer Cleansing Rinsed/ Irrigated with Saline -Foul Odor after Cleansing No -Bioengineered Tissue No -Bleeding Controlled with Pressure -Offloading Yes -Type of Offloading Surgical Shoe -Treatment Response Procedure Tolerated Well -Debridement - Subq, 1st 20sq cm Yes Pain Scale: 0-10 Numeric Is Patient Pain Free? Yes Yes SYD - Nurse 3 - General Ulcer D/C NN Start: 06/06/20 07:59 Freq: Status: Active Protocol: Activity Type Activity Date Activity User E-Sign Co-Sign Detail Recorded Client Recorded Date Recorded By Document 06/06/20 09:27 DL [id number] 06/06/20 09:28 DL Document 06/13/20 08:40 RB [id number] 06/13/20 08:41 RB 06/06/20 06/13/20 09:27 08:40 Wound Care Nurse 3 #2 RIGHT DORSAL FOOT -Ulcer Cleansing Rinsed/ Irrigated with Saline -Foul Odor after Cleansing No -Other Dressing Betadine bedatine -Primary Dressing Covered/Secured with Dry Gauze & Dry Gauze Roll Gauze, Secured with Tape -Other Covering Sutures today abd, rois Mary-Wound Care Lotion Right -Compression Wrap Rios Wrap -Other rios Treatment Response Procedure Tolerated Well Vital Signs Blood Pressure (90/60-120/80) 141/84 H Blood Pressure Mean (mm Hg) 103 Source Monitor Position Sitting Pain Scale: 0-10 Numeric Is Patient Pain Free? Yes Yes WC - Visit Discharge Discharge Condition Stable Stable Ambulatory Status Ambulatory, Wheelchair Wheelchair Transportation [address] [employer] Medication Reconcilliation completed & No provided to patient/care provider Clinical Summary of Care Provided Yes Wound debrided: dorsal foot Laterality: Right No debridement was completed today - sutures from delayed primary closure remain intact Assessment/Plan Active Problems (Last Reviewed 04/10/20 @ 15:[address] 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 Traumatic hematoma now with skin discontinuity, right foot. Right foot cellulitis resolved. On chronic anticoagulation medication Plan: I reviewed and discussed her case. Debridement was performed as noted in the clinical panel. Her infection and active bleeding have resolved and the sutures remain intact from her delayed primary closure site. Anticipated removal will be at the earliest 3-week hallie. Betadine wet-to-dry gauze was applied and she was advised to change this this upcoming week while at the nursing home facility every 3 days. It is okay to gently wash the area with soap and water saline. To avoid soaking or scrubbing. To avoid wearing shoes or sandals that have a strap that touch this site or applies tension to adjacent tissues. She does have palpable pulses and if lack of healing continues noninvasive vascular studies will be ordered. To avoid tobacco products which she is currently not using. It is noted she completed a course of antibiotics and I do not recommend a refill at this time. Her local infection has resolved. To keep a close eye on return of infection which is not noted today. To continue proper nutrition to optimize healing. To return to clinic in 1 week for procedure follow-up. I answered all her questions. Note: [employer] speech recognition medical transcription software was used to create portions of this document. Sound-alike and misspelled words, as well as other medical transcription errors may be contained in the documentation. The medical decision making level is low. There is noted low risk of morbidity after considering this treatment plan and diagnostic data. The problems addressed require a low medical decision making level which includes two or more minor problems, a stable chronic illness, or an acute uncomplicated illness or injury.
[2020-06-20 08:27] VITALS: BP 151/73; PULSE 75; RESP 18; TEMP 36.3; BMI 41.3
--- NOTE | 2020-06-20 08:45 | PCM.WC.PN ---
(1) Ulcer of right foot with fat layer exposed Status: Acute Code(s): L97.512 - Non-pressure chronic ulcer of other part of right foot with fat layer exposed (2) Hematoma of right foot Status: Acute Code(s): S90.31XA - Contusion of right foot, initial encounter (3) [facility] (current) use of anticoagulants Status: Chronic Code(s): Z79.01 - [facility] (current) use of anticoagulants Type of Wound Date of Service: 06/20/20 Chief Complaint: Right foot hematoma with resultant wound and infection History of Wound: This 60-year-old female with significant past medical history cardiac disease on chronic anticoagulation medication dropped a water bottle on her right foot on May 13, 2020 which resulted in hematoma form a, wound, cellulitis which required hospital admission. She is now residing in a custodial facility and had a debridement with delayed primary closure procedure performed last week. She denies redness or odor. She denies fever, chill, nausea, vomiting today. She has resumed physical therapy and is avoiding pressure to this site. She has a cam walker. She is eager to return home. Progress of Wound: Stable - Physical Exam Vital Signs Temp Pulse Resp BP 97.4 F L 75 18 151/73 H 06/20/20 08:27 06/20/20 08:27 06/20/20 08:27 06/20/20 08:27 General: Alert, Oriented x3, Cooperative, No apparent distress HEENT: Atraumatic Extremities: No cyanosis, Capillary Refill Less than 3 Seconds, No Calf Tenderness, Diminished Peripheral Pulses, Edema Skin: Ulcer/ Wound - well aligned and coapted delayed primary closures site without gapping, drainage, infection or purulence. adjacent skin is atrophic Wound Measurements and Assessment WC - Nurse 1 - General Ulcer Measurement Start: 06/06/20 07:59 Freq: Status: Active Protocol: Activity Type Activity Date Activity User E-Sign Co-Sign Detail Recorded Client Recorded Date Recorded By Document 06/20/20 08:27 DL [id number] 06/20/20 08:31 DL 06/20/20 08:27 Wound Center Nurse 1 [Ulcer Assessment] #2 RIGHT DORSAL FOOT -Current Size (cm) - Length 0.1 -Current Size (cm) - Width 0.1 -Current Size (cm) - Depth 0.1 -Total Square Cm 0.01 -Photo Taken No -Exudate Amt None Present -Wound Margin Flat & Intact -Granulation Amt None Present (0 %) -Necrosis Amt None Present (0 %) -Structure Exposed N/A -Texture (Mary-wound Skin Appearance) Scarring -Moisture (Mary-wound Skin Appearance No Abnormality ) -Color (Mary-wound Skin Appearance) No Abnormality -Temperature (Mary-wound Skin No Abnormality Appearance) (Pt Warm) -Tenderness on Palpation (Mary-wound No Skin Appearance) -Ulcer Cleansing Wound Cleanser -Anesthetic Used 4% Lidocaine Solution - Nurse 2 - General Ulcer CM Notes Start: 06/06/20 07:59 Freq: Status: Active Protocol: Activity Type Activity Date Activity User E-Sign Co-Sign Detail Recorded Client Recorded Date Recorded By Document 06/20/20 08:41 [id number] 06/20/20 08:41 06/20/20 08:41 Wound Center Nurse 2 [Procedure/Treatment] -Correct Patient No -Correct Side, Site, Position No -Correct Procedure No -Procedure Performed No -Wound/Ulcer Outcome Not Healed [See Physician Procedure note for Specifics] Pain Scale: 0-10 Numeric [Pain] -Is Patient Pain Free? Yes Musculoskeletal: No Tenderness to Palpation of Joints or Extremities, Muscle Wasting, - - no bogginess or fluctuance Neurological: Sensory exam intact to light touch and pain Psych/Mental Status: Normal Affect, Appropriate Debridement Note Post-Debridement Measurements/Treatment - Nurse 2 - General Ulcer CM Notes Start: 06/06/20 07:59 Freq: Status: Active Protocol: Activity Type Activity Date Activity User E-Sign Co-Sign Detail Recorded Client Recorded Date Recorded By Document 06/06/20 09:07 [id number] 06/06/20 09:16 Document 06/13/20 08:25 [id number] 06/13/20 08:27 Document 06/20/20 08:41 [id number] 06/20/20 08:41 06/06/20 06/13/20 06/20/20 09:07 08:25 08:41 Wound Center Nurse 2 #2 RIGHT DORSAL FOOT -Time 09:07 -Correct Patient No No No -Correct Side, Site, Position Yes No No -Correct Procedure Yes No No -Procedure Performed Yes No No -Type of Procedure Debridement -Clinical Debridement Subcutaneous -Tissue Removed Subcutaneous -Post Debridement (cm) - Length 1.2 -Post Debridement (cm) - Width 0.5 -Post Debridement (cm) - Depth 0.8 -Total Square (Post) (cm) 0.60 -Area of Debridement (cm) - Length 1.2 -Area of Debridement (cm) - Width 0.5 -Total Square (Area) (cm) 0.60 -Tunneling No -Undermining/Tunneling No -Circular Undermining No -Wound/Ulcer Outcome Not Healed Not Healed Not Healed -Ulcer Cleansing Rinsed/ Irrigated with Saline -Foul Odor after Cleansing No -Bioengineered Tissue No -Bleeding Controlled with Pressure -Offloading Yes -Type of Offloading Surgical Shoe -Treatment Response Procedure Tolerated Well -Debridement - Subq, 1st 20sq cm Yes Pain Scale: 0-10 Numeric Is Patient Pain Free? Yes Yes Yes - Nurse 3 - General Ulcer D/C NN Start: 06/06/20 07:59 Freq: Status: Active Protocol: Activity Type Activity Date Activity User E-Sign Co-Sign Detail Recorded Client Recorded Date Recorded By Document 06/06/20 09:27 DL [id number] 06/06/20 09:28 DL Document 06/13/20 08:40 RB [id number] 06/13/20 08:41 RB 06/06/20 06/13/20 09:27 08:40 Wound Care Nurse 3 #2 RIGHT DORSAL FOOT -Ulcer Cleansing Rinsed/ Irrigated with Saline -Foul Odor after Cleansing No -Other Dressing Betadine bedatine -Primary Dressing Covered/Secured with Dry Gauze & Dry Gauze Roll Gauze, Secured with Tape -Other Covering Sutures today abd, rios Mary-Wound Care Lotion Right -Compression Wrap Rios Wrap -Other rios Treatment Response Procedure Tolerated Well Vital Signs Blood Pressure (90/60-120/80) 141/84 H Blood Pressure Mean (mm Hg) 103 Source Monitor Position Sitting Pain Scale: 0-10 Numeric Is Patient Pain Free? Yes Yes WC - Visit Discharge Discharge Condition Stable Stable Ambulatory Status Ambulatory, Wheelchair Wheelchair Transportation [employer] [address] [employer] Medication Reconcilliation completed & No provided to patient/care provider Clinical Summary of Care Provided Yes Laterality: Right Assessment/Plan Active Problems (Last Reviewed 04/10/20 @ 15:[address] 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 Traumatic hematoma now with skin discontinuity, right foot. Right foot cellulitis resolved. On chronic anticoagulation medication Plan: I reviewed and discussed her case. Debridement was not performed due to prior procedure site. Her infection and active bleeding have resolved and the sutures remain intact from her delayed primary closure site. Anticipated removal will be at the earliest 3-week hallie. Suture removal will be considered next week. Betadine wet-to-dry gauze was applied and she was advised to change this this upcoming week while at the custodial facility every 3 days. It is okay to gently wash the area with soap and water saline. To avoid soaking or scrubbing. To avoid wearing shoes or sandals that have a strap that touch this site or applies tension to adjacent tissues. She does have palpable pulses and if lack of healing continues noninvasive vascular studies will be ordered. To avoid tobacco products which she is currently not using. It is noted she completed a course of antibiotics and I do not recommend a refill at this time. Her local infection has resolved. To keep a close eye on return of infection which is not noted today. To continue proper nutrition to optimize healing. Ok to progress to weightbearing as tolerated in cam walker. To avoid strap placement right over the repair site. To control edema as she becomes more active with hourly elevation and muscle contraction. A light Tubigrip was also dispensed (single). She was advised on proper use. To return to clinic in 1 week for procedure follow-up. I answered all her questions. Note: [employer] speech recognition call center support representative software was used to create portions of this document. Sound-alike and misspelled words, as well as other call center support representative errors may be contained in the documentation. The medical decision making level is low. There is noted low risk of morbidity after considering this treatment plan and diagnostic data. The problems addressed require a low medical decision making level which includes two or more minor problems, a stable chronic illness, or an acute uncomplicated illness or injury.
[2020-06-27 08:10] VITALS: BP 137/72; PULSE 76; RESP 16; TEMP 36.5; BMI 41.3
--- NOTE | 2020-06-27 08:55 | PN.PCM_ITS ---
(1) Ulcer of right foot with fat layer exposed Status: Acute Code(s): L97.512 - Non-pressure chronic ulcer of other part of right foot with fat layer exposed (2) Hematoma of right foot Status: Acute Code(s): S90.31XA - Contusion of right foot, initial encounter (3) FPC (current) use of anticoagulants Status: Chronic Code(s): Z79.01 - FPC (current) use of anticoagulants Type of Wound Date of Service: 06/27/20 Chief Complaint: Right foot hematoma with resultant wound and infection History of Wound: This 60-year-old female with significant past medical history cardiac disease on chronic anticoagulation medication dropped a water bottle on her right foot on May 13, 2020 which resulted in hematoma form a, wound, cellulitis which required hospital admission. She uses a cam walker boot and is getting discharged from the [facility] facility tomorrow. She will be out of town next week and can only return in 2 weeks. She is here for suture removal consideration. Progress of Wound: Improving - Physical Exam Vital Signs Temp Pulse Resp BP 97.7 F L 76 16 137/72 H 06/27/20 08:10 06/27/20 08:10 06/27/20 08:10 06/27/20 08:10 General: Alert, Oriented x3, Cooperative, No apparent distress HEENT: Atraumatic Extremities: No cyanosis, Capillary Refill Less than 3 Seconds, No Calf Tenderness, Diminished Peripheral Pulses, Edema - Decreased Skin: Ulcer/ Wound - No purulence, erythema, streaking, odor, infection. Upon suture removal there is deep wound approximation with granular base and some skin discontinuity superficially with a depth of 0.2 cm. The adjacent skin is hairless and atrophic. There is no active hematoma formation Wound Measurements and Assessment WC - Nurse 1 - General Ulcer Measurement Start: 06/06/20 07:59 Freq: Status: Active Protocol: Activity Type Activity Date Activity User E-Sign Co-Sign Detail Recorded Client Recorded Date Recorded By Document 06/27/20 08:10 [facility] [id number] 06/27/20 08:15 [facility] 06/27/20 08:10 Wound Center Nurse 1 [Ulcer Assessment] #2 RIGHT DORSAL FOOT -Combined with other wound No -Current Size (cm) - Length 0.1 -Current Size (cm) - Width 0.1 -Current Size (cm) - Depth 0.1 -Total Square Cm 0.01 -Exudate Amt None Present -Texture (Mary-wound Skin Appearance) Assessed -Moisture (Mary-wound Skin Appearance Assessed ) -Color (Mary-wound Skin Appearance) Assessed -Temperature (Mary-wound Skin No Abnormality Appearance) (Pt Warm) -Tenderness on Palpation (Mary-wound No Skin Appearance) -Ulcer Cleansing Rinsed/ Irrigated with Saline -Foul Odor after Cleansing No -Anesthetic Used 4% Lidocaine Solution - Nurse 2 - General Ulcer CM Notes Start: 06/06/20 07:59 Freq: Status: Active Protocol: Activity Type Activity Date Activity User E-Sign Co-Sign Detail Recorded Client Recorded Date Recorded By Document 06/27/20 08:38 NELIDA [id number] 06/27/20 08:41 NELIDA 06/27/20 08:38 Wound Center Nurse 2 [Procedure/Treatment] -Time 08:39 -Correct Patient Yes -Correct Side, Site, Position Yes -Correct Procedure Yes -Procedure Performed Yes -Type of Procedure Debridement -Clinical Debridement Subcutaneous -Tissue Removed Subcutaneous -Post Debridement (cm) - Length 1.4 -Post Debridement (cm) - Width 0.2 -Post Debridement (cm) - Depth 0.2 -Total Square (Post) (cm) 0.28 -Area of Debridement (cm) - Length 1.4 -Area of Debridement (cm) - Width 0.2 -Total Square (Area) (cm) 0.28 -Tunneling No -Undermining/Tunneling No -Circular Undermining No -Wound/Ulcer Outcome Not Healed -Ulcer Cleansing Rinsed/ Irrigated with Saline -Foul Odor after Cleansing No -Bioengineered Tissue No -Bleeding Controlled with Pressure -Offloading Yes -Type of Offloading Surgical Shoe -Treatment Response Procedure Tolerated Well -Debridement - Subq, 1st 20sq cm Yes [See Physician Procedure note for Specifics] Pain Scale: 0-10 Numeric [Pain] -Is Patient Pain Free? Yes - Nurse 3 - General Ulcer D/C NN Start: 06/06/20 07:59 Freq: Status: Active Protocol: Activity Type Activity Date Activity User E-Sign Co-Sign Detail Recorded Client Recorded Date Recorded By Document 06/27/20 08:47 RB [id number] 06/27/20 08:48 RB 06/27/20 08:47 Wound Care Nurse 3 [Wound Dressing] #2 RIGHT DORSAL FOOT -Ulcer Cleansing Wound Cleanser -Primary Dressing Applied Aquacel AG 2x2 -Primary Dressing Covered/Secured Dry Gauze,Dry with Gauze & Roll Gauze,Secured with Tape -Aquacel AG 2x2 1 [Compression Applied] Right -Tubular Bandage Single Layer -Size of Tubigrip Used Size D -Size D ($) 0 [Post Procedure Tolerated] -Treatment Response Procedure Tolerated Well Pain Scale: 0-10 Numeric [Pain] -Is Patient Pain Free? Yes WC - Visit Discharge [Visit Discharge Information] -Discharge Condition Stable -Ambulatory Status Ambulatory -Transportation Private Auto -Medication Reconcilliation completed No & provided to patient/care provider -Clinical Summary of Care Provided Yes Musculoskeletal: Muscle Wasting Neurological: - - Decreased sensation Psych/Mental Status: Normal Affect, Appropriate Debridement Note Post-Debridement Measurements/Treatment WC - Nurse 2 - General Ulcer CM Notes Start: 06/06/20 07:59 Freq: Status: Active Protocol: Activity Type Activity Date Activity User E-Sign Co-Sign Detail Recorded Client Recorded Date Recorded By Document 06/06/20 09:07 [id number] 06/06/20 09:16 Document 06/13/20 08:25 [id number] 06/13/20 08:27 Document 06/20/20 08:41 [id number] 06/20/20 08:41 Document 06/27/20 08:38 [id number] 06/27/20 08:41 06/06/20 06/13/20 06/20/20 09:07 08:25 08:41 Wound Center Nurse 2 #2 RIGHT DORSAL FOOT -Time 09:07 -Correct Patient No No No -Correct Side, Site, Position Yes No No -Correct Procedure Yes No No -Procedure Performed Yes No No -Type of Procedure Debridement -Clinical Debridement Subcutaneous -Tissue Removed Subcutaneous -Post Debridement (cm) - Length 1.2 -Post Debridement (cm) - Width 0.5 -Post Debridement (cm) - Depth 0.8 -Total Square (Post) (cm) 0.60 -Area of Debridement (cm) - Length 1.2 -Area of Debridement (cm) - Width 0.5 -Total Square (Area) (cm) 0.60 -Tunneling No -Undermining/Tunneling No -Circular Undermining No -Wound/Ulcer Outcome Not Healed Not Healed Not Healed -Ulcer Cleansing Rinsed/ Irrigated with Saline -Foul Odor after Cleansing No -Bioengineered Tissue No -Bleeding Controlled with Pressure -Offloading Yes -Type of Offloading Surgical Shoe -Treatment Response Procedure Tolerated Well -Debridement - Subq, 1st 20sq cm Yes Pain Scale: 0-10 Numeric Is Patient Pain Free? Yes Yes Yes 06/27/20 08:38 Wound Center Nurse 2 #2 RIGHT DORSAL FOOT -Time 08:39 -Correct Patient Yes -Correct Side, Site, Position Yes -Correct Procedure Yes -Procedure Performed Yes -Type of Procedure Debridement -Clinical Debridement Subcutaneous -Tissue Removed Subcutaneous -Post Debridement (cm) - Length 1.4 -Post Debridement (cm) - Width 0.2 -Post Debridement (cm) - Depth 0.2 -Total Square (Post) (cm) 0.28 -Area of Debridement (cm) - Length 1.4 -Area of Debridement (cm) - Width 0.2 -Total Square (Area) (cm) 0.28 -Tunneling No -Undermining/Tunneling No -Circular Undermining No -Wound/Ulcer Outcome Not Healed -Ulcer Cleansing Rinsed/ Irrigated with Saline -Foul Odor after Cleansing No -Bioengineered Tissue No -Bleeding Controlled with Pressure -Offloading Yes -Type of Offloading Surgical Shoe -Treatment Response Procedure Tolerated Well -Debridement - Subq, 1st 20sq cm Yes Pain Scale: 0-10 Numeric Is Patient Pain Free? Yes WC - Nurse 3 - General Ulcer D/C NN Start: 06/06/20 07:59 Freq: Status: Active Protocol: Activity Type Activity Date Activity User E-Sign Co-Sign Detail Recorded Client Recorded Date Recorded By Document 06/06/20 09:27 DL [id number] 06/06/20 09:28 DL Document 06/13/20 08:40 RB [id number] 06/13/20 08:41 RB Document 06/20/20 08:59 RB [id number] 06/20/20 08:59 RB Document 06/27/20 08:47 RB [id number] 06/27/20 08:48 RB 06/06/20 06/13/20 06/20/20 09:27 08:40 08:59 Wound Care Nurse 3 #2 RIGHT DORSAL FOOT -Ulcer Cleansing Rinsed/ Rinsed/ Irrigated with Irrigated with Saline Saline -Foul Odor after Cleansing No -Primary Dressing Applied -Other Dressing Betadine bedatine betadine to incision -Primary Dressing Covered/Secured with Dry Gauze & Dry Gauze Dry Gauze,Dry Roll Gauze, Gauze & Roll Secured with Gauze,Secured Tape with Tape -Other Covering Sutures today abd, rios -Aquacel AG 2x2 Mary-Wound Care Lotion Right -Compression Wrap Rios Wrap -Tubular Bandage Single Layer -Size of Tubigrip Used Size D -Size D ($) 1 -Other rios Treatment Response Procedure Tolerated Well Vital Signs Blood Pressure (90/60-120/80) 141/84 H Blood Pressure Mean (mm Hg) 103 Source Monitor Position Sitting Pain Scale: 0-10 Numeric Is Patient Pain Free? Yes Yes Yes WC - Visit Discharge Discharge Condition Stable Stable Stable Ambulatory Status Ambulatory, Wheelchair Wheelchair Wheelchair Transportation [employer] Private Auto Medication Reconcilliation completed & No No provided to patient/care provider Clinical Summary of Care Provided Yes Yes 06/27/20 08:47 Wound Care Nurse 3 #2 RIGHT DORSAL FOOT -Ulcer Cleansing Wound Cleanser -Foul Odor after Cleansing -Primary Dressing Applied Aquacel AG 2x2 -Other Dressing -Primary Dressing Covered/Secured with Dry Gauze,Dry Gauze & Roll Gauze,Secured with Tape -Other Covering -Aquacel AG 2x2 1 Mary-Wound Care Right -Compression Wrap -Tubular Bandage Single Layer -Size of Tubigrip Used Size D -Size D ($) 0 -Other Treatment Response Procedure Tolerated Well Vital Signs Blood Pressure (90/60-120/80) Blood Pressure Mean (mm Hg) Source Position Pain Scale: 0-10 Numeric Is Patient Pain Free? Yes WC - Visit Discharge Discharge Condition Stable Ambulatory Status Ambulatory Transportation Private Auto Medication Reconcilliation completed & No provided to patient/care provider Clinical Summary of Care Provided Yes Wound debrided: dorsal foot Laterality: Right Type of Debridement: Excisional debridement Anesthesia Used: 5% Lidocaine Gel Depth: in the subcutaneous layer Percentage of wound debrided: 100 Instrument Used: #15 blade Tissue Removed: fibrous, devitalized subcutaneous, biofilm, slough Severity: Fat Layer Exposed Amount of bleeding with debridement: Mild Bleeding Controlled with: Pressure Patient tolerated procedure well Assessment/Plan Active Problems (Last Reviewed 04/10/20 @ 15:[address] 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 Traumatic hematoma now with skin discontinuity, right foot. Right foot cellulitis resolved. On chronic anticoagulation medication Plan: I reviewed and discussed her case. Her infection and active bleeding have resolved and the sutures remain intact from her delayed primary closure site. Upon removal of suture, there is a skin discontinuity and this was debrided as noted in the nursing panel. Reduced depth is noted without infection, hematoma, or deep tissue exposure. Aquacel Ag was applied and she was advised to change this daily and to gently wash the adjacent skin with soap and water. To avoid soaking or scrubbing. To avoid wearing shoes or sandals that have a strap that touch this site or applies tension to adjacent tissues. She does have palpable pulses and if lack of healing continues noninvasive vascular studies will be ordered. To avoid tobacco products which she is currently not using. It is noted she completed a course of antibiotics and I do not recommend a refill at this time. Her local infection has resolved. To keep a close eye on return of infection which is not noted today. To continue proper nutrition to optimize healing. Ok to progress to weightbearing as tolerated in cam walker. To avoid strap placement right over the repair site. To control edema as she becomes more active with hourly elevation and muscle contraction. A light Tubigrip was recommended for continuation (single). She was advised on proper use. To return to clinic in 1 week for procedure follow-up. I answered all her questions. Note: [employer] speech recognition inbound ingredient logistics specialist software was used to create portions of this document. Sound-alike and misspelled words, as well as other inbound ingredient logistics specialist errors may be contained in the documentation.
== END 2020-07-04 23:59 ==
LOC: WC 08:15
PROVIDERS: Visit Provider Podiatrist
DX: L97.512 Non-pressure chronic ulcer of other part of right foot with fat layer exposed (principal); S90.31XA Contusion of right foot, initial encounter; W20.8XXA Other cause of strike by thrown, projected or falling object, initial encounter; E78.5 Hyperlipidemia, unspecified; G47.33 Obstructive sleep apnea (adult) (pediatric); I11.0 Hypertensive heart disease with heart failure; I50.32 Chronic diastolic (congestive) heart failure; I27.21 Secondary pulmonary arterial hypertension; J45.909 Unspecified asthma, uncomplicated; Z79.899 Other long term (current) drug therapy; Z95.2 Presence of prosthetic heart valve; Z79.82 Long term (current) use of aspirin; Z79.84 Long term (current) use of oral hypoglycemic drugs; Z79.01 Long term (current) use of anticoagulants
CPT/HCPCS: 11042; 99213; G0463

== ENCOUNTER 2020-07-10 14:34 | Outpatient (CLI) | payer MEDICAID, SELFPAY ==
[2020-07-10] VITALS (7 sets, daily range): BP systolic 107–129; BP diastolic 55–77; PULSE 77–85; RESP 16–18; TEMP 37.3–37.8; O2SAT 93–97; BMI 39.5
== END 2020-07-10 18:25 | disposition home or self-care (01) ==
LOC: ICUOUT 14:35 → ICU 14:36
PROVIDERS: Referring Provider Nurse Practitioner Acute Care; Visit Provider Nurse Practitioner Acute Care
DX: U07.1 COVID-19 (principal)
CPT/HCPCS: J7050; M0239; Q0245; Q0240

== ENCOUNTER → 2020-07-16 | Outpatient (CLI) | payer MEDICAID, SELFPAY ==
[2020-07-10 15:00] VITALS: BMI 39.5
== END | disposition home or self-care (01) ==
PROVIDERS: Referring Provider Internal Medicine Cardiovascular Disease; Visit Provider Internal Medicine Cardiovascular Disease
DX: I38 Endocarditis, valve unspecified (principal)
CPT/HCPCS: 87040

== ENCOUNTER 2020-07-25 08:15 | Outpatient (RCR) | payer MEDICAID, SELFPAY ==
[2020-07-03 12:46] VITALS: BMI 38.9
[2020-07-05 00:17] VITALS: BP 137/72; PULSE 76; RESP 16; TEMP 36.5
[2020-07-10 15:00] VITALS: BMI 39.5
[2020-07-18 15:38] VITALS: BP 137/57; PULSE 57; RESP 18; TEMP 36.1; O2SAT 100; BMI 39.5
--- NOTE | 2020-07-18 15:40 | WC ---
PT STATES SHE WAS DIAGNOSED 07/06 WITH POSITIVE NASAL TEST OF COVID
--- NOTE | 2020-07-18 17:30 | PN.PCM_ITS ---
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 She has been discharged from long term facility and has now returned from being out of town. She has been changing her silver dressing daily and reports her edema is controlled. She wears cam walker boot. Progress of Wound: Improving - Physical Exam Vital Signs Temp Pulse Resp BP Pulse Ox 97 F L 57 L 18 137/57 H 100 07/18/20 15:38 07/18/20 15:38 07/18/20 15:38 07/18/20 15:38 07/18/20 15:38 General: Alert, Oriented x3, Cooperative, No apparent distress HEENT: Atraumatic Extremities: No cyanosis, Capillary Refill Less than 3 Seconds, No Calf Tenderness, Diminished Peripheral Pulses, Edema - Decreased Skin: Ulcer/ Wound - No purulence, erythema, streaking, odor, infection. Adjacent skin atrophic. No longer deep tissue exposure noted. Peripheral epithelialization. Ulcer bed is granular Wound Measurements and Assessment WC - Nurse 1 - General Ulcer Measurement Start: 07/16/20 07:11 Freq: Status: Active Protocol: Activity Type Activity Date Activity User E-Sign Co-Sign Detail Recorded Client Recorded Date Recorded By Document 07/18/20 15:38 RB [id number] 07/18/20 15:39 RB 07/18/20 15:38 Wound Center Nurse 1 [Ulcer Assessment] #2 RIGHT DORSAL FOOT -Combined with other wound No -Current Size (cm) - Length 0.8 -Current Size (cm) - Width 0.3 -Current Size (cm) - Depth 0.2 -Total Square Cm 0.24 -Tunneling No -Undermining/Tunneling No -Circular Undermining No -Exudate Amt Small -Exudate Type Serosanguineous -Wound Margin Thickened & Rolled Under -Granulation Amt Medium (34-66%) -Granulation Quality [place] -Slough/Fibrin Yes -Necrosis Amt Small (1-33%) -Necrotic Tissue Type Adherent Slough -Structure Exposed N/A -Texture (Mary-wound Skin Appearance) Assessed, Scarring -Moisture (Mary-wound Skin Appearance Assessed ) -Color (Mary-wound Skin Appearance) Assessed -Temperature (Mary-wound Skin No Abnormality Appearance) (Pt Warm) -Tenderness on Palpation (Mary-wound No Skin Appearance) -Ulcer Cleansing Wound Cleanser -Foul Odor after Cleansing No -Anesthetic Used 4% Lidocaine Solution WC - Nurse 2 - General Ulcer CM Notes Start: 07/16/20 07:11 Freq: Status: Active Protocol: Activity Type Activity Date Activity User E-Sign Co-Sign Detail Recorded Client Recorded Date Recorded By Document 07/18/20 15:50 [id number] 07/18/20 16:02 NELIDA 07/18/20 15:50 Wound Center Nurse 2 [Procedure/Treatment] -Time 15:52 -Correct Patient Yes -Correct Side, Site, Position Yes -Correct Procedure Yes -Procedure Performed Yes -Type of Procedure Debridement -Clinical Debridement Subcutaneous -Tissue Removed Subcutaneous -Post Debridement (cm) - Length 0.9 -Post Debridement (cm) - Width 0.2 -Post Debridement (cm) - Depth 0.1 -Total Square (Post) (cm) 0.18 -Area of Debridement (cm) - Length 0.9 -Area of Debridement (cm) - Width 0.2 -Total Square (Area) (cm) 0.18 -Tunneling No -Undermining/Tunneling No -Circular Undermining No -Ulcer Cleansing Rinsed/ Irrigated with Saline -Foul Odor after Cleansing No -Bioengineered Tissue No -Bleeding Controlled with Pressure -Offloading Yes -Type of Offloading Camwalker -Treatment Response Procedure Tolerated Well -Debridement - Subq, 1st 20sq cm Yes [See Physician Procedure note for Specifics] Pain Scale: 0-10 Numeric [Pain] -Is Patient Pain Free? Yes - Nurse 3 - General Ulcer D/C NN Start: 07/16/20 07:11 Freq: Status: Active Protocol: Activity Type Activity Date Activity User E-Sign Co-Sign Detail Recorded Client Recorded Date Recorded By Document 07/18/20 16:13 [facility] [id number] 07/18/20 16:13 [facility] 07/18/20 16:13 Wound Care Nurse 3 [Wound Dressing] #2 RIGHT DORSAL FOOT -Ulcer Cleansing Rinsed/ Irrigated with Saline -Foul Odor after Cleansing No -Primary Dressing Applied Aquacel AG 4x4 -Primary Dressing Covered/Secured Dry Gauze, with Secured with Tape,Other -Other Covering APPERTURE PAD -Aquacel AG 4x4 1 [Post Procedure Tolerated] -Treatment Response Procedure Tolerated Well Pain Scale: 0-10 Numeric [Pain] -Is Patient Pain Free? Yes - Visit Discharge [Visit Discharge Information] -Discharge Condition Stable -Ambulatory Status Ambulatory -Transportation Private Auto Musculoskeletal: Muscle Wasting, - - Compartments soft without bogginess or fluctuance Neurological: Sensory exam intact to light touch and pain Psych/Mental Status: Normal Affect, Appropriate Debridement Note Post-Debridement Measurements/Treatment - Nurse 2 - General Ulcer CM Notes Start: 07/16/20 07:11 Freq: Status: Active Protocol: Activity Type Activity Date Activity User E-Sign Co-Sign Detail Recorded Client Recorded Date Recorded By Document 07/18/20 15:50 [id number] 07/18/20 16:02 07/18/20 15:50 Wound Center Nurse 2 #2 RIGHT DORSAL FOOT -Time 15:52 -Correct Patient Yes -Correct Side, Site, Position Yes -Correct Procedure Yes -Procedure Performed Yes -Type of Procedure Debridement -Clinical Debridement Subcutaneous -Tissue Removed Subcutaneous -Post Debridement (cm) - Length 0.9 -Post Debridement (cm) - Width 0.2 -Post Debridement (cm) - Depth 0.1 -Total Square (Post) (cm) 0.18 -Area of Debridement (cm) - Length 0.9 -Area of Debridement (cm) - Width 0.2 -Total Square (Area) (cm) 0.18 -Tunneling No -Undermining/Tunneling No -Circular Undermining No -Ulcer Cleansing Rinsed/ Irrigated with Saline -Foul Odor after Cleansing No -Bioengineered Tissue No -Bleeding Controlled with Pressure -Offloading Yes -Type of Offloading Camwalker -Treatment Response Procedure Tolerated Well -Debridement - Subq, 1st 20sq cm Yes Pain Scale: 0-10 Numeric Is Patient Pain Free? Yes - Nurse 3 - General Ulcer D/C NN Start: 07/16/20 07:11 Freq: Status: Active Protocol: Activity Type Activity Date Activity User E-Sign Co-Sign Detail Recorded Client Recorded Date Recorded By Document 07/18/20 16:13 [facility] [id number] 07/18/20 16:13 [facility] 07/18/20 16:13 Wound Care Nurse 3 #2 RIGHT DORSAL FOOT -Ulcer Cleansing Rinsed/ Irrigated with Saline -Foul Odor after Cleansing No -Primary Dressing Applied Aquacel AG 4x4 -Primary Dressing Covered/Secured with Dry Gauze, Secured with Tape,Other -Other Covering APPERTURE PAD -Aquacel AG 4x4 1 Treatment Response Procedure Tolerated Well Pain Scale: 0-10 Numeric Is Patient Pain Free? Yes - Visit Discharge Discharge Condition Stable Ambulatory Status Ambulatory Transportation Private Auto Wound debrided: dorsal forefoot Laterality: Right Type of Debridement: Excisional debridement Anesthesia Used: 5% Lidocaine Gel Depth: in the subcutaneous layer Percentage of wound debrided: 100 Instrument Used: #15 blade Tissue Removed: fibrous, devitalized subcutaneous, biofilm, slough Severity: Fat Layer Exposed Amount of bleeding with debridement: Mild Bleeding Controlled with: Pressure Patient tolerated procedure well Assessment/Plan Assessment: Wound/ulcer dorsal right foot with fat layer exposed. Traumatic hematoma now with skin discontinuity, right foot. Right foot cellulitis resolved. On chronic anticoagulation medication Plan: I reviewed and discussed her case. Her infection and active bleeding have resolved. Debridement was performed as noted in the clinical nursing panel. Improvement in stabilization is noted. Aquacel Ag was applied and she was advised to change this daily and to gently wash the adjacent skin with soap and water. To avoid soaking or scrubbing. She was reassured no signs of infection or hematoma are noted today. To avoid wearing shoes or sandals that have a strap that touch this site or applies tension to adjacent tissues. She does have palpable pulses and if lack of healing continues noninvasive vascular studies will be ordered. To avoid tobacco products which she is currently not using. It is noted she completed a course of antibiotics and I do not recommend a refill at this time. Her local infection has resolved. To keep a close eye on return of infection which is not noted today. To continue proper nutrition to optimize healing. Ok to progress to weightbearing as tolerated in cam walker. An additional aperture pad was applied around the ulcer to relieve pressure. To avoid strap placement right over the healing ulcer site. To control edema as she becomes more active with hourly elevation and muscle contraction. A light Tubigrip was recommended for continuation (single). She was advised on proper use. To return to clinic in 1 week for procedure follow-up. I answered all her questions. Note: [employer] speech recognition superintendent compressor stations software was used to create portions of this document. Sound-alike and misspelled words, as well as other superintendent compressor stations errors may be contained in the documentation. . 10 minutes was spent on this encounter. This included face to face and non face to face care including preparing for the visit, reviewing the history, performing the exam, counseling and providing education to the patient, family, or caregiver, ordering medications/test/ procedures if indicated as documented, communicating with other healthcare providers, documenting information in the medical record, interpreting / sharing this information when indicated as documented, and care coordination.
[2020-07-25 08:24] VITALS: BP 154/64; PULSE 71; RESP 18; TEMP 36.5; BMI 39.5
--- NOTE | 2020-07-25 09:45 | PN.PCM_ITS ---
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 She has a scab. She wears cam walker boot. She reports reduced pain. Progress of Wound: Improving - Physical Exam Vital Signs Temp Pulse Resp BP Pulse Ox 97.7 F L 71 18 154/64 H 100 07/25/20 08:24 07/25/20 08:24 07/25/20 08:24 07/25/20 08:24 07/18/20 15:38 General: Alert, Oriented x3, Cooperative, No apparent distress Extremities: No cyanosis, Capillary Refill Less than 3 Seconds, No Calf Tenderness, Diminished Peripheral Pulses, Edema - Decreased Skin: Ulcer/ Wound - No purulence, erythema, string, odor, infection Wound Measurements and Assessment WC - Nurse 1 - General Ulcer Measurement Start: 07/16/20 07:11 Freq: Status: Active Protocol: Activity Type Activity Date Activity User E-Sign Co-Sign Detail Recorded Client Recorded Date Recorded By Document 07/25/20 08:24 DL [id number] 07/25/20 08:27 DL 07/25/20 08:24 Wound Center Nurse 1 [Ulcer Assessment] #2 RIGHT DORSAL FOOT -Current Size (cm) - Length 0.2 -Current Size (cm) - Width 0.6 -Current Size (cm) - Depth 0.2 -Total Square Cm 0.12 -Photo Taken No -Exudate Amt None Present -Wound Margin Distinct, Outline Attached -Granulation Amt Small (1-33%) -Granulation Quality Pale -Necrosis Amt Small (1-33%) -Necrotic Tissue Type Adherent Slough -Structure Exposed N/A -Texture (Mary-wound Skin Appearance) Scarring -Moisture (Mary-wound Skin Appearance No Abnormality ) -Color (Mary-wound Skin Appearance) No Abnormality -Temperature (Mary-wound Skin No Abnormality Appearance) (Pt Warm) -Tenderness on Palpation (Mary-wound No Skin Appearance) -Ulcer Cleansing Wound Cleanser -Foul Odor after Cleansing No -Anesthetic Used 4% Lidocaine Solution SYD - Nurse 2 - General Ulcer CM Notes Start: 07/16/20 07:11 Freq: Status: Active Protocol: Activity Type Activity Date Activity User E-Sign Co-Sign Detail Recorded Client Recorded Date Recorded By Document 07/25/20 08:39 NELIDA [id number] 07/25/20 08:42 NELIDA 07/25/20 08:39 Wound Center Nurse 2 [Procedure/Treatment] -Time 08:40 -Correct Patient Yes -Correct Side, Site, Position Yes -Correct Procedure Yes -Procedure Performed Yes -Type of Procedure Debridement -Clinical Debridement Subcutaneous -Tissue Removed Subcutaneous -Post Debridement (cm) - Length 0.1 -Post Debridement (cm) - Width 0.7 -Post Debridement (cm) - Depth 0.2 -Total Square (Post) (cm) 0.07 -Area of Debridement (cm) - Length 0.1 -Area of Debridement (cm) - Width 0.7 -Total Square (Area) (cm) 0.07 -Tunneling No -Undermining/Tunneling No -Circular Undermining No -Wound/Ulcer Outcome Not Healed -Ulcer Cleansing Rinsed/ Irrigated with Saline -Foul Odor after Cleansing No -Bioengineered Tissue No -Bleeding Controlled with Pressure -Offloading Yes -Type of Offloading Surgical Shoe -Treatment Response Procedure Tolerated Well -Debridement - Subq, 1st 20sq cm Yes [See Physician Procedure note for Specifics] Pain Scale: 0-10 Numeric [Pain] -Is Patient Pain Free? Yes SYD - Nurse 3 - General Ulcer D/C NN Start: 07/16/20 07:11 Freq: Status: Active Protocol: Activity Type Activity Date Activity User E-Sign Co-Sign Detail Recorded Client Recorded Date Recorded By Document 07/25/20 08:47 NELIDA [id number] 07/25/20 08:47 07/25/20 08:47 Wound Care Nurse 3 [Wound Dressing] #2 RIGHT DORSAL FOOT -Ulcer Cleansing Rinsed/ Irrigated with Saline -Foul Odor after Cleansing No -Primary Dressing Applied C Hydrogel ($) -Primary Dressing Covered/Secured Dry Gauze, with Secured with Tape [Compression Applied] Right -Stockings Yes Pain Scale: 0-10 Numeric [Pain] -Is Patient Pain Free? Yes - Visit Discharge [Visit Discharge Information] -Discharge Condition Stable -Ambulatory Status Ambulatory, Walker -Transportation Private Auto -Medication Reconcilliation completed Yes & provided to patient/care provider -Clinical Summary of Care Provided Yes Musculoskeletal: No Tenderness to Palpation of Joints or Extremities, Muscle Wasting Neurological: Sensory exam intact to light touch and pain Psych/Mental Status: Normal Affect, Appropriate Debridement Note Post-Debridement Measurements/Treatment - Nurse 2 - General Ulcer CM Notes Start: 07/16/20 07:11 Freq: Status: Active Protocol: Activity Type Activity Date Activity User E-Sign Co-Sign Detail Recorded Client Recorded Date Recorded By Document 07/18/20 15:50 [id number] 07/18/20 16:02 Document 07/25/20 08:39 [id number] 07/25/20 08:42 07/18/20 07/25/20 15:50 08:39 Wound Center Nurse 2 #2 RIGHT DORSAL FOOT -Time 15:52 08:40 -Correct Patient Yes Yes -Correct Side, Site, Position Yes Yes -Correct Procedure Yes Yes -Procedure Performed Yes Yes -Type of Procedure Debridement Debridement -Clinical Debridement Subcutaneous Subcutaneous -Tissue Removed Subcutaneous Subcutaneous -Post Debridement (cm) - Length 0.9 0.1 -Post Debridement (cm) - Width 0.2 0.7 -Post Debridement (cm) - Depth 0.1 0.2 -Total Square (Post) (cm) 0.18 0.07 -Area of Debridement (cm) - Length 0.9 0.1 -Area of Debridement (cm) - Width 0.2 0.7 -Total Square (Area) (cm) 0.18 0.07 -Tunneling No No -Undermining/Tunneling No No -Circular Undermining No No -Wound/Ulcer Outcome Not Healed -Ulcer Cleansing Rinsed/ Rinsed/ Irrigated with Irrigated with Saline Saline -Foul Odor after Cleansing No No -Bioengineered Tissue No No -Bleeding Controlled with Pressure Pressure -Offloading Yes Yes -Type of Offloading Camwalker Surgical Shoe -Treatment Response Procedure Procedure Tolerated Well Tolerated Well -Debridement - Subq, 1st 20sq cm Yes Yes Pain Scale: 0-10 Numeric Is Patient Pain Free? Yes Yes - Nurse 3 - General Ulcer D/C NN Start: 07/16/20 07:11 Freq: Status: Active Protocol: Activity Type Activity Date Activity User E-Sign Co-Sign Detail Recorded Client Recorded Date Recorded By Document 07/18/20 16:13 [facility] [id number] 07/18/20 16:13 [facility] Document 07/25/20 08:47 [id number] 07/25/20 08:47 07/18/20 07/25/20 16:13 08:47 Wound Care Nurse 3 #2 RIGHT DORSAL FOOT -Ulcer Cleansing Rinsed/ Rinsed/ Irrigated with Irrigated with Saline Saline -Foul Odor after Cleansing No No -Primary Dressing Applied Aquacel AG 4x4 C Hydrogel ($) -Primary Dressing Covered/Secured with Dry Gauze, Dry Gauze, Secured with Secured with Tape,Other Tape -Other Covering APPERTURE PAD -Aquacel AG 4x4 1 Right -Stockings Yes Treatment Response Procedure Tolerated Well Pain Scale: 0-10 Numeric Is Patient Pain Free? Yes Yes - Visit Discharge Discharge Condition Stable Stable Ambulatory Status Ambulatory Ambulatory, Walker Transportation Private Auto Private Auto Medication Reconcilliation completed & Yes provided to patient/care provider Clinical Summary of Care Provided Yes Wound debrided: dorsal foot Laterality: Right Type of Debridement: Excisional debridement Anesthesia Used: 5% Lidocaine Gel Depth: in the subcutaneous layer Percentage of wound debrided: 100 Instrument Used: #15 blade Tissue Removed: fibrous, devitalized subcutaneous, biofilm, slough Severity: Fat Layer Exposed Amount of bleeding with debridement: Mild Bleeding Controlled with: Pressure Patient tolerated procedure well Assessment/Plan Active Problems (Last Updated 07/09/20 @ 11:54 by Lindsay Rocha) Delayed wound healing (Chronic) Ulcer of right foot with fat layer exposed (Chronic) intermediate (current) use of anticoagulants (Chronic) Assessment: Wound/ulcer dorsal right foot with fat layer exposed. Traumatic hematoma now with skin discontinuity, right foot. Right foot cellulitis resolved. On chronic anticoagulation medication Plan: I reviewed and discussed her case. Her infection and active bleeding have resolved. Debridement was performed as noted in the clinical nursing panel. Significant ulcer reduction is noted in size. Aquacel Ag was applied and she was advised to change this daily and to gently wash the adjacent skin with soap and water. It is okay to use hydrogel instead this next week. To avoid soaking or scrubbing. She was reassured no signs of infection or hematoma are noted today. To avoid wearing shoes or sandals that have a strap that touch this site or applies tension to adjacent tissues. She does have palpable pulses and if lack of healing continues noninvasive vascular studies will be ordered. To avoid tobacco products which she is currently not using. It is noted she completed a course of antibiotics and I do not recommend a refill at this time. Her local infection has resolved. To keep a close eye on return of infection which is not noted today. To continue proper nutrition to optimize healing. Ok to progress to weightbearing as tolerated in cam walker. An additional aperture pad was applied around the ulcer to relieve pressure. To avoid strap placement right over the healing ulcer site. To control edema as she becomes more active with hourly elevation and muscle contraction. A light Tubigrip was recommended for continuation (single). She was advised on proper use. To return to clinic in 1 week for procedure follow-up. I answered all her questions. Note: [employer] speech recognition baggage agent software was used to create portions of this document. Sound-alike and misspelled words, as well as other baggage agent errors may be contained in the documentation. .
== END 2020-08-03 23:59 ==
LOC: WC 08:15
PROVIDERS: Visit Provider Podiatrist
DX: L97.512 Non-pressure chronic ulcer of other part of right foot with fat layer exposed (principal); S90.31XA Contusion of right foot, initial encounter; W20.8XXA Other cause of strike by thrown, projected or falling object, initial encounter; R60.9 Edema, unspecified; Z79.01 Long term (current) use of anticoagulants; Z79.84 Long term (current) use of oral hypoglycemic drugs; Z79.82 Long term (current) use of aspirin; Z79.899 Other long term (current) drug therapy
CPT/HCPCS: 11042

== ENCOUNTER 2020-08-02 10:27 | Outpatient (RCR) | payer MEDICAID, SELFPAY ==
[2020-07-25 10:23] LABS: International Normalized Ratio 2.4; Prothrombin Time (Protime)PT. 25.4 SECONDS (11.7-14.9)
[2020-08-02 10:58] LABS: International Normalized Ratio 2.1; Prothrombin Time (Protime)PT. 22.7 SECONDS (11.7-14.9)
== END 2020-08-02 18:00 | disposition home or self-care (01) ==
LOC: LAB 10:27
PROVIDERS: Referring Provider Internal Medicine Cardiovascular Disease; Visit Provider Internal Medicine Cardiovascular Disease
DX: L97.512 Non-pressure chronic ulcer of other part of right foot with fat layer exposed (principal); Z95.2 Presence of prosthetic heart valve; Z79.01 Long term (current) use of anticoagulants; S90.31XA Contusion of right foot, initial encounter; W20.8XXA Other cause of strike by thrown, projected or falling object, initial encounter; R60.9 Edema, unspecified; Z79.84 Long term (current) use of oral hypoglycemic drugs; Z79.82 Long term (current) use of aspirin; Z79.899 Other long term (current) drug therapy
CPT/HCPCS: 11042; 36415; 85610

== ENCOUNTER 2020-08-08 08:00 | Outpatient (RCR) | payer MEDICAID, SELFPAY ==
[2020-08-04 00:19] VITALS: BP 154/64; PULSE 71; RESP 18; TEMP 36.5; O2SAT 100
[2020-08-08 08:04] VITALS: BP 153/52; RESP 16; TEMP 36.8; BMI 39.5
--- NOTE | 2020-08-08 08:37 | PCM.WC.PN ---
History of Present Illness Date of Service: 08/08/20 Chief Complaint: Right foot hematoma with resultant wound and infection (resolved) Progress of Wound: She denies pain and thinks the ulcer site is healed. She denies drainage the past 5 days. There is a small scab. She denies fever, chill, nausea, vomiting. Objective Data Objective Data Vital Signs: Vital Signs Temp Pulse Resp BP Pulse Ox 98.2 F 71 16 153/52 H 100 08/08/20 08:04 08/04/20 00:19 08/08/20 08:04 08/08/20 08:04 08/04/20 00:19 Body Mass Index (BMI) 39.5 Assessment & Plan Assessment/Plan (1) Ulcer of right foot with fat layer exposed: Status: Chronic Code(s): L97.512 - Non-pressure chronic ulcer of other part of right foot with fat layer exposed (2) Hematoma of right foot: Status: Resolved Code(s): S90.31XA - Contusion of right foot, initial encounter (3) Delayed wound healing: Status: Chronic Code(s): T14.8XXD - Other injury of unspecified body region, subsequent encounter Plan: ssessment: Wound/ulcer dorsal right foot with fat layer exposed -- healed today. Traumatic hematoma now with skin discontinuity, right foot. Right foot cellulitis resolved. On chronic anticoagulation medication Plan: I reviewed and discussed her case. There are no local signs of infection. The ulcer site is healed. To discontinue dressing care. To wash foot with soap and water daily. To moisturize daily avoiding webspace application. To allow skin remodeling. To control edema as she becomes more active with hourly elevation and muscle contraction. A light Tubigrip was recommended for continuation (single). She was advised on proper use. She is discharged from the wound healing center at this time and will follow up at the foot and ankle Center with Dr. Fleming for routine foot care and risk assessments. I answered all her questions. Note: [employer] speech recognition mission commander software was used to create portions of this document. Sound-alike and misspelled words, as well as other mission commander errors may be contained in the documentation. The medical decision making level is low. There is noted low risk of morbidity after considering this treatment plan and diagnostic data. The problems addressed require a low medical decision making level which includes two or more minor problems, a stable chronic illness, or an acute uncomplicated illness or injury. Physical Exam Const alert and oriented x3 General Appearance: cooperative HEENT normocephalic Extremity Extremity Narrative: No calf tenderness Diminished pulses Muscle wasting noted General Extremity: edema and no tenderness to palpation of joints or extremities; Negative for cyanosis Skin Skin Narrative: no purulence, no streaking, no odor, no infection. full epithelialization. the ulcer is healed today. plantar skin is dry. no maceration noted General Skin Exam: Negative for erythema Neuro Neuro Narrative: lack of normal epicritic sensation via light touch is consistent with neuropathy status Psych cooperative and affect normal Debridement Note Debridement Note Post-Debridement Measurements and Additional Note: Post-Debridement Measurements/Treatment - Nurse 2 - General Ulcer CM Notes Start: 08/08/20 08:04 Freq: Status: Active Protocol: Activity Type Activity Date Activity User E-Sign Co-Sign Detail Recorded Client Recorded Date Recorded By Document 08/08/20 08:23 JF [id number] 08/08/20 08:26 08/08/20 08:23 Wound Center Nurse 2 #2 RIGHT DORSAL FOOT -Correct Patient No -Correct Side, Site, Position No -Correct Procedure No -Procedure Performed No -Post Debridement (cm) - Length 0 -Post Debridement (cm) - Width 0 -Post Debridement (cm) - Depth 0 -Total Square (Post) (cm) 0 -Area of Debridement (cm) - Length 0 -Area of Debridement (cm) - Width 0 -Total Square (Area) (cm) 0 -Wound/Ulcer Outcome Healed- Epithelialized Pain Scale: 0-10 Numeric Is Patient Pain Free? Yes - Nurse 3 - General Ulcer D/C NN Start: 08/08/20 08:04 Freq: Status: Active Protocol: Activity Type Activity Date Activity User E-Sign Co-Sign Detail Recorded Client Recorded Date Recorded By Document 08/08/20 08:26 JF [id number] 08/08/20 08:29 08/08/20 08:26 Is Patient Pain Free? Yes - Visit Discharge Discharge Condition Stable Ambulatory Status Ambulatory Transportation Private Auto Medication Reconcilliation completed & Yes provided to patient/care provider Clinical Summary of Care Provided Yes
== END 2020-08-08 09:16 | disposition home or self-care (01) ==
LOC: WC 08:00
PROVIDERS: Visit Provider Podiatrist
DX: Z09 Encounter for follow-up examination after completed treatment for conditions other than malignant neoplasm (principal)
CPT/HCPCS: 99213; G0463

== ENCOUNTER 2020-08-29 15:35 | Outpatient (RCR) | payer MEDICAID, SELFPAY ==
[2020-08-20 08:14] LABS: International Normalized Ratio 2.1
[2020-08-29 17:24] LABS: Absolute Lymphocyte Count 2.51 X10^3/uL (0.83-4.51); Absolute Neutrophil Count 3.8 X10^3/uL (2.0-7.7); Basophil# 0.03 X10^3/uL; Basophil% 0.4 % (0-1); Eosinophil# 0.19 X10^3/uL; Eosinophils% 2.6 % (0-5); Hematocrit 41.2 % (37-47); Hemoglobin 13.3 g/dL (12.0-15.0); Lymphocyte # 2.51 X10^3/ul (0.83-4.51); Lymphocyte % 34.5 % (19-41); Mean Corp Hgb Conc 32.3 g/dL (32-36); Mean Corpuscular Volume 92.8 fL (81-99); Monocyte# 0.75 X10^3/uL; Monocyte% 10.3 % (0-10); NRBC Flagged by Analyzer 0 % (0-5); Neutrophil # 3.76 X10^3/uL (2.7-7.7); Neutrophil % 51.8 % (47-70); Platelet Count 280 K/mm3 (150-450); RBC Distribution Width CV 13.9 % (11.6-14.6); RBC Distribution Width SD 47.3 fl (35.1-43.9); Red Blood Count 4.44 M/mm3 (4.2-5.4); White Blood Count 7.3 K/mm3 (4.4-11.0)
[2020-08-29 17:33] LABS: International Normalized Ratio 3.6; Prothrombin Time (Protime)PT. 34.9 SECONDS (11.7-14.9)
[2020-08-29 18:10] LABS: ALB/GLOB Ratio 0.8 RATIO (0.9-2.4); AST(SGOT) 21 U/L (15-37); Alanine Aminotransfer ALT/SGPT 28 U/L (13-56); Albumin, Serum 3.6 g/dL (3.2-5.0); Alkaline Phosphatase 50 U/L (45-117); Anion Gap 7 (5-15); BUN 19 mg/dL (7-18); BUN/Creat Ratio 26.4 RATIO (10-20); Bilirubin, Direct 0.14 mg/dL (0.00-0.30); Calcium,Total 8.7 mg/dL (8.5-10.1); Chloride 101 mmol/L (98-107); Cholesterol 204 mg/dL (200); Creatinine, Serum 0.72 mg/dL (0.55-1.02); EST Glomerular Filtration Rate 88 mL/min (>60); Est Glom Filt Rate - Afr Amer 107 mL/min (>60); Globulin 4.3 g/dL (2.2-4.2); Glucose 95 mg/dL (74-106); High Density Lipoprotein 34 mg/dL; Potassium 3.7 mmol/L (3.5-5.1); Protein, Total 7.9 g/dL (6.4-8.2); Sodium Level 138 mmol/L (136-145); Thyroid Stim Hormone (TSH) 0.89 uIU/mL (0.358-3.74); Triglycerides 231 mg/dL; Very Low Density Lipoprotein 46 mg/dL (5-40)
[2020-08-30 12:22] LABS: Vitamin D,25 Hydroxy 42.9 ng/mL
== END 2020-08-29 18:00 | disposition home or self-care (01) ==
LOC: LAB 15:35
PROVIDERS: Physician Assistant Medical; Referring Provider Internal Medicine Cardiovascular Disease; Visit Provider Internal Medicine Cardiovascular Disease
DX: Z95.2 Presence of prosthetic heart valve (principal); Z79.01 Long term (current) use of anticoagulants
CPT/HCPCS: 36415; 80053; 80061; 82248; 82306; 84443; 85025; 85610

== ENCOUNTER 2020-09-19 09:35 | Outpatient (RCR) | payer MEDICAID, SELFPAY ==
[2020-09-19 10:33] LABS: International Normalized Ratio 3.4; Prothrombin Time (Protime)PT. 33.2 SECONDS (11.7-14.9)
== END 2020-09-19 18:00 | disposition home or self-care (01) ==
LOC: LAB 09:35
PROVIDERS: Referring Provider Internal Medicine Cardiovascular Disease; Visit Provider Internal Medicine Cardiovascular Disease
DX: Z95.2 Presence of prosthetic heart valve (principal); Z79.01 Long term (current) use of anticoagulants
CPT/HCPCS: 36415; 85610

== ENCOUNTER 2020-10-19 08:28 | Outpatient (RCR) | payer MEDICAID, SELFPAY ==
[2020-10-11 08:20] LABS: International Normalized Ratio 3.2; Prothrombin Time (Protime)PT. 31.7 SECONDS (11.7-14.9)
[2020-10-19 09:38] LABS: International Normalized Ratio 3.6; Prothrombin Time (Protime)PT. 35.3 SECONDS (11.7-14.9)
== END 2020-10-19 18:00 | disposition home or self-care (01) ==
LOC: LAB 08:28
PROVIDERS: Referring Provider Internal Medicine Cardiovascular Disease; Visit Provider Internal Medicine Cardiovascular Disease
DX: Z95.2 Presence of prosthetic heart valve (principal); Z79.01 Long term (current) use of anticoagulants
CPT/HCPCS: 36415; 85610

== ENCOUNTER → 2020-10-26 12:42 | Outpatient (CLI) | payer MEDICAID, SELFPAY ==
--- NOTE | 2020-10-26 12:45 | BI_ITS ---
MAMMOGRAPHY - BILATERAL SCREENING REASON FOR EXAM: Female, 60 years old. Routine annual screening examination. PERTINENT HISTORY: Non-contributory. TECHNIQUE: Digital bilateral breast margareth (3D mammographic acquisition) in the CC and MLO projections. 2-D mediolateral oblique (MLO) and craniocaudad (CC) views of both breasts were obtained. CAD: Full Field Digital Mammography with Computer Added Detection was performed. COMPARISON: Comparison is made with prior study dated 05/31/2019 and 03/18/2017. FINDINGS: Breast Composition: The breasts are almost entirely fatty. There are no dominant masses or suspicious calcifications. Stable small benign appearing bilateral axillary lymph nodes. No other significant abnormalities are identified. There has been no significant change since the prior study. BI/SCRN MAMM (CAD)W/MARGARETH BILAT IMPRESSION: Stable bilateral screening mammogram. Yearly follow-up mammogram recommended. (A) ASSESSMENT CATEGORY: BIRADS Category 2: Benign. A letter regarding these results will be sent to the patient by the facility within 30 days. Approximately 10% of breast cancers are not detected by mammography. A normal mammogram should not delay biopsy of a clinically suspicious abnormality. [id number] Electronically Signed: Luis Boogie MD at 13:20 EDT , Service support ,
== END ==
DX: Z12.31 Encounter for screening mammogram for malignant neoplasm of breast (principal)
CPT/HCPCS: 77063; 77067

== ENCOUNTER → 2020-11-08 | Outpatient (CLI) | payer MEDICAID, SELFPAY | END | disposition home or self-care (01) | LOC: LABSPEC 12:20 | PROVIDERS: Referring Provider Nurse Practitioner Women's Health; Visit Provider Nurse Practitioner Women's Health | DX: N76.0 Acute vaginitis (principal) | CPT/HCPCS: 87070; 87205 ==

== ENCOUNTER → 2020-12-04 15:04 | Outpatient (CLI) | payer MEDICAID, SELFPAY ==
--- NOTE | 2020-12-04 15:07 | BD_ITS ---
STUDY: DUAL ENERGY X-RAY ABSORPTIOMETRY / DXA REASON FOR EXAM: Female, 60 years old. M810 TECHNIQUE: Bone Mineral Density (BMD) measurements of lumbar spine and bilateral hips were obtained. COMPARISON: None. FINDINGS: Lumbar Spine (L1-L4): g/cm2 (0.955) / T-score (-0.8) / Z-score (0.5) Findings are suggestive of normal bone density with a low fracture risk. Left Femur Total: g/cm2 (1.007) / T-score (0.5) / Z-score (1.4) Left Femoral Neck: g/cm2 (0.798) / T-score (-0.5) / Z-score (0.8) Right Femur Total: g/cm2 (0.990) / T-score (0.4) / Z-score (1.3) Right Femoral Neck: g/cm2 (0.789) / T-score (-0.5) / Z-score (0.7) BD/Dexa Bone Density Study IMPRESSION: The patient is considered normal as outlined below according to World Maximo Organization (WHO) criteria with a low fracture risk. Reference Information: The T-score is the number of standard deviations above or below the standard which is normal for young adults at their peak bone mineral density. The World Health Organization (WHO) interprets the T-scores as follows: Above -1 Normal bone density Between -1 and -2.5 Osteopenia Equal to / or below -2.5 Osteoporosis As a practical clinical guideline, osteopenia may be graded as follows: Mild -1 through -1.5 Moderate -1.6 through -2.0 Severe -2.1 through -2.4 The Z-score is the number of standard deviations above or below age-matched controls. A Z-score of less than -1.5 would be considered abnormal. References: 1. NIH Osteoporosis and Related Bone Diseases www osteo.org 2. International Society for Clinical Densitometry www iscd.org 3. National Osteoporosis Foundation www nof.org Electronically Signed: Luis Boogie MD at 15:30 EDT , Service support ,
== END ==
DX: M81.0 Age-related osteoporosis without current pathological fracture (principal); Z95.2 Presence of prosthetic heart valve; Z79.01 Long term (current) use of anticoagulants; E11.65 Type 2 diabetes mellitus with hyperglycemia; I10 Essential (primary) hypertension; E78.5 Hyperlipidemia, unspecified; E55.9 Vitamin D deficiency, unspecified; M25.50 Pain in unspecified joint
CPT/HCPCS: 77080

== ENCOUNTER 2020-12-04 15:26 | Outpatient (RCR) | payer MEDICAID, SELFPAY ==
[2020-11-06 11:33] LABS: International Normalized Ratio 3.8; Prothrombin Time (Protime)PT. 36.9 SECONDS (11.7-14.9)
[2020-11-22 09:25] LABS: International Normalized Ratio 3.6; Prothrombin Time (Protime)PT. 35.3 SECONDS (11.7-14.9)
[2020-11-22 09:26] LABS: Erythrocyte Sedimentation Rate 17 mm/hr (0-30)
[2020-11-22 09:28] LABS: Absolute Lymphocyte Count 2.19 X10^3/uL (0.83-4.51); Absolute Neutrophil Count 2.9 X10^3/uL (2.0-7.7); Basophil# 0.03 X10^3/uL; Basophil% 0.5 % (0-1); Eosinophil# 0.22 X10^3/uL; Eosinophils% 3.7 % (0-5); Hematocrit 40.5 % (37-47); Hemoglobin 13.2 g/dL (12.0-15.0); Lymphocyte # 2.19 X10^3/ul (0.83-4.51); Lymphocyte % 36.5 % (19-41); Mean Corp Hgb Conc 32.6 g/dL (32-36); Mean Corpuscular Hgb 30.8 pg (27.0-32.0); Mean Corpuscular Volume 94.4 fL (81-99); Mean Platelet Vol. 10.3 fl (6.2-12.0); Monocyte# 0.63 X10^3/uL; Monocyte% 10.5 % (0-10); NRBC Flagged by Analyzer 0 % (0-5); Neutrophil # 2.91 X10^3/uL (2.7-7.7); Neutrophil % 48.5 % (47-70); Platelet Count 257 K/mm3 (150-450); RBC Distribution Width CV 14.6 % (11.6-14.6); RBC Distribution Width SD 50.8 fl (35.1-43.9); Red Blood Count 4.29 M/mm3 (4.2-5.4)
[2020-11-22 09:36] LABS: Hemoglobin A1c 6.3 % (3.8-5.6)
[2020-11-22 09:52] LABS: Anion Gap 8 (5-15); BUN 16 mg/dL (7-18); BUN/Creat Ratio 22.7 RATIO (10-20); Calcium,Total 8.6 mg/dL (8.5-10.1); Chloride 103 mmol/L (98-107); Creatinine, Serum 0.71 mg/dL (0.55-1.02); EST Glomerular Filtration Rate 90 mL/min (>60); Est Glom Filt Rate - Afr Amer 109 mL/min (>60); Glucose 119 mg/dL (74-106); Potassium 3.8 mmol/L (3.5-5.1); Rheumatoid Factor < 10.0 IU/mL (<15); Sodium Level 139 mmol/L (136-145)
[2020-11-23 21:16] LABS: ANTINUCLEAR ANTIBODIES DIRECT Negative (Negative)
[2020-11-28 09:19] LABS: HLA B27 Negative (.)
[2020-12-04 16:07] LABS: International Normalized Ratio 2.4; Prothrombin Time (Protime)PT. 25.5 SECONDS (11.7-14.9)
== END 2020-12-04 18:00 | disposition home or self-care (01) ==
LOC: LAB 15:26
PROVIDERS: Referring Provider Internal Medicine Cardiovascular Disease; Visit Provider Internal Medicine Cardiovascular Disease
DX: Z95.2 Presence of prosthetic heart valve (principal); Z79.01 Long term (current) use of anticoagulants
CPT/HCPCS: 36415; 80048; 81374; 83036; 85025; 85610; 85652; 86038; 86431

== ENCOUNTER → 2020-12-27 10:54 | Outpatient (CLI) | payer MEDICAID, SELFPAY ==
--- NOTE | 2020-12-27 10:56 | ECHOCS_ITS ---
Reason For Study: VALVE REPL EVAL Procedure This was a 2D Doppler, Color Flow transthoracic echocardiogram. The study was technically difficult. Contrast injection was performed. Patient was scanned in supine position during reflux assessment. Exam performed in department. Left Ventricle Normal LV size. Moderate concentric left ventricular hypertrophy. Left ventricular systolic function is normal. The estimated ejection fraction is 65 %. No regional wall motion abnormalities noted. Right Ventricle Normal RV size. Normal systolic function. Atria The left atrium is mildly enlarged. Normal right atrium. Mitral Valve Mean transmitral valve gradient 3.6 mmHg. Stable appearing mechanical mitral valve apparatus. Tricuspid Valve Normal tricuspid valve. Mild (1+) tricuspid valve insufficiency. Pulmonary artery systolic pressure is 36 mmHg. Aortic Valve Peak aortic valve gradient 37 mmHg. Mean aortic valve gradient 18 mmHg. Mild to moderate aortic stenosis. Stable appearing mechanical aortic valve apparatus. Great Vessels Normal aortic root. The pulmonary artery is normal size. Normal inferior vena cava. Pericardium/Pleural No pericardial effusion. Medication 22 gauge I.V. with prn adaptor inserted into left arm. Diluted definity 2.0ml given slow IV push to enhance endocardial definition. MMode/2D Measurements & Calculations LVIDd: 5.0 cm IVSd: 1.1 cm LVOT diam: 2.0 cm LVIDs: 3.4 cm LVPWd: 1.1 cm LVOT area: 3.3 cm2 RVDd: 3.6 cm FS: 31.3 % Ao root diam: 2.9 cm LAV(MOD-sp4): 68.1 ml LVAd ap4: 28.8 cm2 LVLd ap4: 7.4 cm EDV(MOD-sp4): 88.7 ml EDV(sp4-el): 94.9 ml LVAs ap4: 16.6 cm2 LVLs ap4: 6.1 cm ESV(MOD-sp4): 36.4 ml ESV(sp4-el): 38.1 ml EF(MOD-sp4): 59.0 % EF(sp4-el): 59.9 % LVAd ap2: 30.5 cm2 SV(MOD-sp4): 52.3 ml SV(MOD-sp2): 76.0 ml LVLd ap2: 7.2 cm EDV(MOD-sp2): 105.6 ml EDV(sp2-el): 109.9 ml LVAs ap2: 14.2 cm2 LVLs ap2: 5.7 cm ESV(MOD-sp2): 29.6 ml ESV(sp2-el): 30.2 ml EF(MOD-sp2): 72.0 % SV(sp4-el): 56.9 ml LA dimension(2D): 4.3 cm LA A4 area: 23.1 cm2 RA A4 area: 16.6 cm2 Doppler Measurements & Calculations MV E max meredith: 143.5 cm/sec MV V2 max: 157.4 cm/sec Ao V2 max: 305.7 cm/sec MV max P.0 mmHg Ao max P.4 mmHg MV V2 mean: 85.5 cm/sec Ao V2 mean: 199.4 cm/sec MV mean P.6 mmHg Ao mean P.1 mmHg MV V2 VTI: 33.4 cm Ao V2 VTI: 57.6 cm MVA(VTI): 2.0 cm2 KERRY(I,D): 1.2 cm2 KERRY(V,D): 1.1 cm2 LV V1 max: 101.3 cm/sec SV(LVOT): 67.3 ml PA V2 max: 105.8 cm/sec LV V1 max P.2 mmHg LV V1 mean P.1 mmHg LV V1 mean: 66.9 cm/sec LV V1 VTI: 20.5 cm TR max meredith: 284.0 cm/sec TR max P.3 mmHg ECHO/Echo Complete W/ Contrast Interpretation Summary Normal LV size. Moderate concentric left ventricular hypertrophy. Left ventricular systolic function is normal. The estimated ejection fraction is 65 %. Pulmonary artery systolic pressure is 36 mmHg. Stable appearing mechanical aortic valve apparatus. Mean aortic valve gradient 18 mmHg. Mean transmitral valve gradient 3.6 mmHg. The above anatomy and gradients appear to be stable compared to the previous ec ho. Ordering Physician: Guerrero Jason/Dick Whelan Referring Physician: VIOLA [facility] Performed By: Nancy Evans, HAI, RVT
== END ==
PROVIDERS: Referring Provider Nurse Practitioner Family; Visit Provider Nurse Practitioner Family
DX: R06.00 Dyspnea, unspecified (principal); Z95.2 Presence of prosthetic heart valve; Z79.01 Long term (current) use of anticoagulants
CPT/HCPCS: 36415; 83880; 85610; 93306; Q9957; A4216; C8929; J3490

== ENCOUNTER 2020-12-27 11:57 | Outpatient (RCR) | payer MEDICAID, SELFPAY ==
[2020-12-05 01:15] VITALS: BMI 39.5
[2020-12-11 18:04] LABS: BNP,B-Type NATRIURETIC PEPTIDE 77.9 pg/mL (0-100)
[2020-12-11 18:07] LABS: International Normalized Ratio 3.3; Prothrombin Time (Protime)PT. 32.7 SECONDS (11.7-14.9)
[2020-12-27 12:48] LABS: International Normalized Ratio 3.5
== END 2020-12-27 18:00 | disposition home or self-care (01) ==
LOC: LAB 11:57
PROVIDERS: Nurse Practitioner Family; Referring Provider Internal Medicine Cardiovascular Disease; Visit Provider Internal Medicine Cardiovascular Disease
DX: Z95.2 Presence of prosthetic heart valve (principal); Z79.01 Long term (current) use of anticoagulants
CPT/HCPCS: 36415; 83880; 85610

== ENCOUNTER 2021-02-04 08:43 | Day surgery (SDC) | payer MEDICAID, SELFPAY ==
--- NOTE | 2021-02-04 | GASB_PTH ---
PATIENT: CHELSEA MCKEON LOC: EN U#:[id number] AGE/SX: 60/F ROOM: RE02/04/[address]: Dr. Radha Toure MD : 1960 BED: DIS: 02/04/2021 SPEC #: [id number] RECD: 02/04/21 11:42 STATUS: ANDRIY REJorge #: [id number] CHOCO: 02/04/21 00:[address]: Radha Toure DEPT: SURGICAL PATHOLOGY RECD BY: Jw Richards ENTERED: 02/04/21 11:42 SP TYPE: Gastric Bx OTHR DR: Marta Luna, CITY ENGINEER-C [facility] Tissues: Gastric mucous membrane Procedures: Surgery Specimen Level IV HEADER OPERATION: Colonoscopy, EGD ([facility] [place]) PRE-OP DIAGNOSIS: Screening for colon cancer, GERD TISSUE SUBMITTED: Antrum biopsy for histo and H. pylori MICROSCOPIC DIAGNOSIS Gastric antrum, biopsy: Chronic gastritis. See comment. AM:ann 02/05/2021 COMMENT The results of immunohistochemistry for Helicobacter pylori will be reported separately ([id number]). MICROSCOPIC DESCRIPTION Slides are reviewed. GROSS DESCRIPTION Received in fixative is one container labeled with the patient's name and designated antrum biopsy. The specimen consists of one irregular fragment of light lux soft tissue that measures 0.4 x 0.3 x 0.1 cm. The specimen is totally submitted in one cassette. / SJ:ann 02/04/21 TC:3 CPT: 07769
--- NOTE | 2021-02-04 08:47 | HP.PCM_ITS ---
HPI - General HPI Narrative CHELSEA MCKEON, is a 60 F who presents for screening colonoscopy. Patient never had a previous colonoscopy. Patient does have some issue with constipation currently states she may go once every 2 days. Patient initially had itching around her rectum and volvulus area which during the office appointment appeared to be just excoriated skin did prescribe patient calmoseptine which she says does work well for that. Patient denies any family history of colon cancer. Patient has been on omeprazole 40 mg p.o. daily for 3 to 4 years never had an EGD. Patient states this does control her symptoms. Patient does have a mechanical valve and is on Coumadin?Coumadin has been held for about 3 days?per cardiology current INR is 1.5. [facility] Medical History (Updated 01/30/21 @ 12:38 by Kristen Buck) Allergic rhinitis Anxiety Asthma Bilateral pleural effusion Cancer Chronic diastolic (congestive) heart failure Congenital subaortic stenosis of membranous type COVID-19 virus detected (07/05/20) CPAP (continuous positive airway pressure) dependence Endometrial cancer Essential (primary) hypertension History of bacterial endocarditis HLD (hyperlipidemia) Hypertension Left bundle branch block Morbid obesity Narcolepsy Nonrheumatic aortic (valve) stenosis with insufficiency Nonrheumatic mitral valve insufficiency Obesity Obstructive sleep apnea On home oxygen therapy Positive GBS test Psoriasis Secondary pulmonary arterial hypertension Streptococcal septicemia Subvalvar aortic stenosis Wears dentures Wears glasses Home Medications aspirin 81 mg PO DAILY@199905/30/16 [History Last Taken 07/10/20] multivitamin with folic acid 1 tab PO DAILY 05/30/16 [History Last Taken 07/10/20] fluticasone propionate 50 mcg/actuation nasal spray,suspension 2 spray INTRANASAL QDAY #1 device 01/04/19 [Rx Last Taken 05/20/20] metformin 500 mg tablet 250 mg PO DAILY tab 08/16/19 [History Last Taken 07/10/20] Potassium Chloride [Klor-Con M20] 40 meq PO DAILY 05/21/20 [History Last Taken 07/10/20] docusate sodium 100 mg PO QHS 05/21/20 [History Last Taken 07/10/20] loratadine 10 mg PO DAILY 05/21/20 [History Last Taken 07/10/20] melatonin 5 mg PO QHS 05/21/20 [History Last Taken 07/09/20] omeprazole 40 mg PO DAILY 05/21/20 [History Last Taken 07/10/20] albuterol sulfate 90 mcg/actuation aerosol inhaler 2 puff INHALATION Q4H PRN #8.5 gm 07/03/20 [Rx Last Taken Unknown] warfarin 7.5 mg tablet 7.5 mg PO DAILY #90 tab 10/17/20 [Rx Last Taken Unknown] acetaminophen 500 mg tablet 1,000 mg PO DAILY tab 11/08/20 [History Last Taken Unknown] cholecalciferol (vitamin D3) 1,250 mcg (50,000 unit) capsule 1,250 mcg PO QWEEK cap 11/08/20 [History Last Taken Unknown] duloxetine 60 mg capsule,delayed release 120 mg PO DAILY cap 11/08/20 [History Last Taken Unknown] warfarin 5 mg tablet 2.5 mg PO DAILY 11/22/20 [History Last Taken Unknown] torsemide 20 mg tablet 40 mg PO DAILY #180 tab 11/30/20 [Rx Last Taken Unknown] metoprolol tartrate 25 mg tablet 25 mg PO BID #180 tab 12/11/20 [Rx Last Taken Unknown] pravastatin 40 mg tablet 20 mg PO QHS #45 tab 01/02/21 [Rx Last Taken Unknown] diphenhydramine HCl [Benadryl] 25 mg PO QHS 01/30/21 [History Last Taken Unknown] Allergy/AdvReac Type Severity Reaction Status Date / Time clarithromycin [From Biaxin] Allergy Severe SOB, hives Verified 02/04/21 09:17 and swelling cephalexin [Cephalexin] Allergy Rash Verified 02/04/21 09:17 simvastatin Allergy Rash Verified 02/04/21 09:17 sulfamethoxazole Allergy Rash Verified 02/04/21 09:17 trimethoprim Allergy Rash/leg Verified 02/04/21 09:17 swelling bupropion AdvReac Severe worsened Verified 02/04/21 09:17 depression ciprofloxacin AdvReac Itching Verified 02/04/21 09:17 Macrolide Antibiotics AdvReac Unknown Verified 02/04/21 09:17 Penicillins AdvReac Unknown Verified 02/04/21 09:17 adhesive tape Allergy Itching Uncoded 02/04/21 09:17 Family History Father CAD (coronary artery disease) Hypertension Mother , age 55 Sudden cardiac Hypertension Abdominal aortic aneurysm rupture Brother Hypertension Sister Hypertension Surgical History H/O bilateral salpingo-oophorectomy (01/2020) History of mechanical aortic valve replacement (05/13/16) History of mitral valve replacement with mechanical valve (05/13/16) History of robot-assisted laparoscopic hysterectomy (01/2020) History of tubal ligation HX venous access device placed Resection of subaortic membrane (2002) Social History household members: spouse number of children: 4 current occupational status: unemployed history of recent travel: No sexually active: Yes Smoking Status: Never smoker alcohol intake: never substance use type: does not use diet: low carbohydrate caffeine: No what type of physical activity do you participate in: walking seatbelt use: always do you feel safe at home: Yes additional social history: - Dylan Past Medical/Surgical History Planned Operation Planned Operative Procedure/s: Colonoscopy, EGD Previous Hospitalizations/Surgeries HX Hospitalizations: No HX of Surgeries: HEART REPAIR 2012 Any Problems With Anesthesia: No You/Your Family Experience Fever (Hyperthermia) With Anes: No Cholinesterase deficiency: No Cardiovascular Hx Chest Pain within Last 2 months: Yes (idiopathic sub aortic stenosis) Hx of Irregular Heartbeat and/or Afib: Yes Hx Heart Attack: No (endocarditis -mitral & aortic valve replacement) Hx Congestive Heart Failure: Yes Hx Rheumatic Fever: No Hx Hypertension: Yes Hx Internal Defibrillator: No Hx Pacemaker: No Hx Cardiac Catheterization: Yes What facility was last heart cath performed: - Date of last Heart Cath: - Hx Cardiac Surgery/Stents/Etc.: Yes Hx Pain in Legs when Walking/Leg Cramps: No Respiratory HX of Shortness of Breath: Yes Hx Chronic Obstructive Pulmonary Disease (COPD): No (pulmonary artery hypertension/asthma) Hx Asthma: Yes Hx Emphysema: No Hx Sleep Apnea: Yes CPAP: Yes (w/ 2L O2) BIPAP: No Hx Respiratory Tract Infection/Cold (presently): No Result (for STOP score): Positive Hx Smoking: No Smoking Status: Never smoker Gastrointestinal Hx Gastroesophageal Reflux: Yes Controlled With Meds: Yes Hx Gastrointestinal Bleed: No Hx Ulcer: No Difficulty Chewing/Swallowing: No Special diet followed at home: Yes (Low salt) Hx Unplanned Weight Loss of 20#: No Neurological Hx Seizures: No Hx Multiple Sclerosis: No Hx Parkinson's Disease: No Hx Head/Neck Injury: Yes Hx Headaches: No Hx Back Injury/Pain: No Does patient have nerve stimulator: No Blood Disorder Hx High Cholesterol: Yes Hx Hepatitis: No Hx Cirrhosis: No Hx Anemia: No Hx Blood Disorders: No Reproduction Is Patient Lactating: No Genitourinary Hx Renal Disease: No Hx Dialysis: No Musculoskeletal Hx Arthritis: No Hx Rheumatoid Arthritis: No Hx Gout: No Endocrine Hx Diabetes: Yes Thyroid Disease: No Psycho/Social Hx Substance Use: No Hx Alcohol Use: No Hx Anxiety: No Hx Depression: Yes Hx Dementia: No Miscellaneous Hx Cancer: Yes Allergies clarithromycin [From Biaxin] Allergy (Severe, Verified 02/04/21 09:17) SOB, hives and swelling cephalexin [Cephalexin] Allergy (Verified 02/04/21 09:17) Rash simvastatin Allergy (Verified 02/04/21 09:17) Rash sulfamethoxazole Allergy (Verified 02/04/21 09:17) Rash trimethoprim Allergy (Verified 02/04/21 09:17) Rash/leg swelling bupropion Adverse Reaction (Severe, Verified 02/04/21 09:17) worsened depression ciprofloxacin Adverse Reaction (Verified 02/04/21 09:17) Itching Macrolide Antibiotics Adverse Reaction (Verified 02/04/21 09:17) Unknown Penicillins Adverse Reaction (Verified 02/04/21 09:17) Unknown adhesive tape Allergy (Uncoded 02/04/21 09:17) Itching Maternal: Family History Father CAD (coronary artery disease) Hypertension Mother Sudden cardiac Hypertension Abdominal aortic aneurysm rupture Brother Hypertension Sister Hypertension - (asthma) Paternal: Family History Father CAD (coronary artery disease) Hypertension Mother Sudden cardiac Hypertension Abdominal aortic aneurysm rupture Brother Hypertension Sister Hypertension Heart Disease ( at 77) and - (Obesity) Sibling: Family History Father CAD (coronary artery disease) Hypertension Mother Sudden cardiac Hypertension Abdominal aortic aneurysm rupture Brother Hypertension Sister Hypertension COPD, Diabetes, High Cholesterol, Heart Disease, Hypertension and - (Obesity) Offspring: Family History Father CAD (coronary artery disease) Hypertension Mother Sudden cardiac Hypertension Abdominal aortic aneurysm rupture Brother Hypertension Sister Hypertension Asthma and - (Fatty liver) Discharge Is Pt Admitted From a Penitentiary, or a Jail: No Who Could Help: After D/C, Where Do you Plan to Go: Return Home Physical Exam Const alert, oriented x3 and no apparent distress HEENT normocephalic and head/scalp atraumatic Resp normal respiratory effort Cardio regular rate GI soft to palpation and non-tender; Negative for non-distended Palpation: Negative for guarding Extremity no clubbing, cyanosis or edema Neuro CN's II-XII intact bilaterally Psych mental status grossly normal Assessment & Plan Assessment/Plan (1) Screening for colon cancer: (2) GERD (gastroesophageal reflux disease): Procedure Criteria Type of Procedure Procedure Type: Elective Elective Risks - COVID COVID Risk Discussion: The surgeon/proceduralist and patient have discussed in detail the risk of exposure to and/or potential harm posed by the COVID-19 virus with having a surgery/procedure at this time versus the risk of delaying the surgery/procedure. It is not possible to know either the risk of delaying the surgery or procedure or chance of getting an infection with perfect accuracy, but a joint decision was made between the patient and the surgeon/proceduralist to proceed at this time with the scheduled surgery/procedure as indicated on the consent form. Surgery Risks - Colonoscopy Risks Include but are not Limited To: Risks include but are not limited to: Bleeding, perforation requiring further surgery, inability to complete colonoscopy requiring barium enema.
[2021-02-04 09:22] VITALS: BP 134/69; PULSE 68; RESP 16; TEMP 36.1; O2SAT 95; BMI 38.7
[2021-02-04 09:31] LABS: Bedside Glucose 135 mg/dL (70-110)
[2021-02-04] MEDS: Lactated Ringers 1,000 ML 100 ML IV (09:34)
[2021-02-04 09:36] LABS: International Normalized Ratio 1.5; Prothrombin Time (Protime)PT. 17.2 SECONDS (11.7-14.9)
--- NOTE | 2021-02-04 10:00 | IMM_PTH ---
PATIENT: CHELSEA MCKEON LOC: EN U#:[id number] AGE/SX: 60/F ROOM: RE02/04/[address]: Dr. Radha Toure MD : 1960 BED: DIS: 02/04/2021 SPEC #: [id number] RECD: 02/04/21 12:56 STATUS: ANDRIY REQ #: [id number] CHOCO: 02/04/21 10:[address]: Radha Toure DEPT: IMMUNOHISTOCHEMISTRY RECD BY: June Lei ENTERED: 02/04/21 12:57 SP TYPE: IMMUNO OTHR DR: Marta Luna, TELEGRAPHIC TYPEWRITER INSTALLER-C [facility] Tissues: Stomach, NOS Procedures: H Pylori (initial) PHYSICIAN & INSTITUTION [place] [id number] SPECIMEN INFORMATION: Tissue Source: Antrum biopsy Clinical Info: Screening for colon cancer, GERD Specimen Number: [id number] CPT code: 14593 METHODOLOGY: Deparaffinized sections of prefer/formalin-fixed tissue or PAP/DQ stained slides are incubated with monoclonal/polyclonal antibodies/oligonucleotide probes. Localization is made via biotin free immunoperoxidase method. Appropriate controls are performed and reacted as expected. Results on target cell population are indicated in the following table: RESULTS: ANTIBODY / CLONE RESULT H Pylori (polyclonal) negative These tests were developed and their performance characteristics determined by [facility]. They may not have been cleared or approved by the U.S. Food and Drug Administration. The FDA has determined that such clearance or approval is not necessary. INTERPRETATION: Antrum biopsy: Negative for Helicobacter pylori organisms. AM:ann 02/05/2021
[2021-02-04] MEDS: Glucagon 1 MG/ML Syringe (10:12)
--- NOTE | 2021-02-04 10:46 | OP.CCLET_ITS ---
02/04/2021 Vidhi Hooks [facility] Re : Upper GI endoscopy procedure for Isabella Eaton [facility] This procedure was performed on Thursday, February 04, 2021. My impressions and recommendations are as follows: Impressions : - Z-line regular, 42 cm from the incisors. - Erythematous mucosa in the antrum. Biopsied. - Normal examined duodenum. - The examination was otherwise normal. Recommendations : - Await pathology results. - Discharge patient to home. - Resume previous diet. - Continue present medications. - Resume Coumadin (warfarin) at prior dose today. - Await pathology results. My findings are described in the full procedure note, which is enclosed. If I can be of further assistance, please feel free to contact me at Doctor phone number(s): , Work: . Sincerely, MD Radha Hoover MD 02/04/2021 10:45:32 AM This report has been signed electronically.
--- NOTE | 2021-02-04 10:46 | OP.EGD_ITS ---
Patient Name: Isabella Loo Procedure Date: 02/04/2021 9:25 AM Date of : 1960 Age: 60 Procedure: Upper GI endoscopy Indications: Gastro-esophageal reflux disease Providers: Radha Toure MD Referring MD: Vidhi Hooks [facility] Medicines: Monitored Anesthesia Care Patient Profile: This is a 60 year old female. Complications: No immediate complications. Procedure: Pre-Anesthesia Assessment: - Prior to the procedure, a History and Physical was performed, and patient medications and allergies were reviewed. The patient's tolerance of previous anesthesia was also reviewed. The risks and benefits of the procedure and the sedation options and risks were discussed with the patient. All questions were answered, and informed consent was obtained. Prior Anticoagulants: The patient has taken Coumadin (warfarin), last dose was 3 days prior to procedure. ASA Grade Assessment: Per anesthesia. After reviewing the risks and benefits, the patient was deemed in satisfactory condition to undergo the procedure. After obtaining informed consent, the endoscope was passed under direct vision. Throughout the procedure, the patient's blood pressure, pulse, and oxygen saturations were monitored continuously. The Endoscope was introduced through the mouth, and advanced to the second part of duodenum. The upper GI endoscopy was accomplished without difficulty. The patient tolerated the procedure well. Scope In: 9:57:48 AM Scope Out: 10:02:20 AM Total Procedure Duration Time 0 hours 4 minutes 32 seconds Findings: The Z-line was regular and was found 42 cm from the incisors. Patchy mildly erythematous mucosa without bleeding was found in the gastric antrum. Biopsies were taken with a cold forceps for histology. Biopsies were taken with a cold forceps for Helicobacter pylori cultures. The examined duodenum was normal. The cardia and gastric fundus were normal on retroflexion. The exam was otherwise without abnormality. Impression: - Z-line regular, 42 cm from the incisors. - Erythematous mucosa in the antrum. Biopsied. - Normal examined duodenum. - The examination was otherwise normal. Recommendation: - Await pathology results. - Discharge patient to home. - Resume previous diet. - Continue present medications. - Resume Coumadin (warfarin) at prior dose today. - Await pathology results. Procedure Code(s): --- Professional --- 86292, Esophagogastroduodenoscopy, flexible, transoral; with biopsy, single or multiple Diagnosis Code(s): --- Professional --- K31.89, Other diseases of stomach and duodenum K21.9, Gastro-esophageal reflux disease without esophagitis CPT copyright 2017 [employer]. All rights reserved. The codes documented in this report are preliminary and upon deputy controller review may be revised to meet current compliance requirements. MD Radha Hoover MD 02/04/2021 10:45:32 AM This report has been signed electronically. Number of Addenda: 0 Note Initiated On: 02/04/2021 9:25 AM
--- NOTE | 2021-02-04 10:49 | OP.COLON_ITS ---
Patient Name: Isabella Loo Procedure Date: 02/04/2021 10:03 AM Date of : 1960 Age: 60 Procedure: Colonoscopy Indications: Screening for colorectal malignant neoplasm Providers: Radha Toure MD Referring MD: Vidhi Hooks [facility] Medicines: Monitored Anesthesia Care Patient Profile: This is a 60 year old female. Last Colonoscopy: none. The patient's first colonoscopy is today. Complications: No immediate complications. Procedure: Pre-Anesthesia Assessment: - Prior to the procedure, a History and Physical was performed, and patient medications and allergies were reviewed. The patient's tolerance of previous anesthesia was also reviewed. The risks and benefits of the procedure and the sedation options and risks were discussed with the patient. All questions were answered, and informed consent was obtained. Prior Anticoagulants: The patient has taken Coumadin (warfarin), last dose was 3 days prior to procedure. ASA Grade Assessment: Per anesthesia. After reviewing the risks and benefits, the patient was deemed in satisfactory condition to undergo the procedure. After I obtained informed consent, the scope was passed under direct vision. Throughout the procedure, the patient's blood pressure, pulse, and oxygen saturations were monitored continuously. The pediatric colonoscope was introduced through the anus and advanced to the cecum, identified by the appendiceal orifice, ileocecal valve and palpation. The colonoscopy was technically difficult and complex due to a tortuous colon. The patient tolerated the procedure well. The quality of the bowel preparation was adequate to identify polyps. Scope In: 10:05:25 AM Scope Withdrawal Time 0 hours 13 minutes 29 seconds Scope Out: 10:41:10 AM Total Procedure Duration Time 0 hours 35 minutes 45 seconds Findings: The perianal and digital rectal examinations were normal. Multiple small-mouthed diverticula were found in the sigmoid colon. The exam was otherwise without abnormality on direct and retroflexion views. Impression: - Diverticulosis in the sigmoid colon. - The examination was otherwise normal on direct and retroflexion views. - No specimens collected. Recommendation: - Discharge patient to home. - High fiber diet. - Continue present medications. - Resume Coumadin (warfarin) at prior dose today. - Repeat colonoscopy in 10 years for screening purposes. Procedure Code(s): --- Professional --- G0121, PT, Colorectal cancer screening; colonoscopy on individual not meeting criteria for high risk Diagnosis Code(s): --- Professional --- Z12.11, Encounter for screening for malignant neoplasm of colon K57.30, Diverticulosis of large intestine without perforation or abscess without bleeding CPT copyright 2017 [employer]. All rights reserved. The codes documented in this report are preliminary and upon water mechanic review may be revised to meet current compliance requirements. MD Radha Hoover MD 02/04/2021 10:49:14 AM This report has been signed electronically. Number of Addenda: 0 Note Initiated On: 02/04/2021 10:03 AM
--- NOTE | 2021-02-04 10:49 | OP.CCLET_ITS ---
02/04/2021 Vidhi Hooks [facility] Re : [facility] This procedure was performed on Thursday, February 04, 2021. My impressions and recommendations are as follows: Impressions : - Diverticulosis in the sigmoid colon. - The examination was otherwise normal on direct and retroflexion views. - No specimens collected. Recommendations : - Discharge patient to home. - High fiber diet. - Continue present medications. - Resume Coumadin (warfarin) at prior dose today. - Repeat colonoscopy in 10 years for screening purposes. My findings are described in the full procedure note, which is enclosed. If I can be of further assistance, please feel free to contact me at Doctor phone number(s): , Work: . Sincerely, MD Radha Hoover MD 02/04/2021 10:49:14 AM This report has been signed electronically.
[2021-02-04 10:50] VITALS: BP 107/95; BP 134/69; PULSE 65; RESP 16; TEMP 36.4; O2SAT 100
[2021-02-04 10:55] VITALS: BP 101/51; BP 134/69; PULSE 63; RESP 16; O2SAT 98
[2021-02-04 11:00] VITALS: BP 105/61; BP 134/69; PULSE 65; RESP 16; O2SAT 100
[2021-02-04 11:05] VITALS: BP 107/63; BP 134/69; PULSE 62; RESP 16; TEMP 36.4; O2SAT 99
[2021-02-04 11:30] VITALS: BP 134/69
[2021-02-05 09:30] LABS: INR Fingerstick 1.5
== END 2021-02-04 11:50 | disposition home or self-care (01) ==
LOC: EN 08:45 → AC 08:45
PROVIDERS: Visit Provider Surgery
PROC: 0DJD8ZZ Inspection of Lower Intestinal Tract, Via Natural or Artificial Opening Endoscopic (ICD-10-PCS; CPT 45378; principal; 2021-02-04 09:55)
DX: Z12.11 Encounter for screening for malignant neoplasm of colon (principal); K57.30 Diverticulosis of large intestine without perforation or abscess without bleeding; K29.50 Unspecified chronic gastritis without bleeding; K21.9 Gastro-esophageal reflux disease without esophagitis; E78.5 Hyperlipidemia, unspecified; F41.9 Anxiety disorder, unspecified; G47.33 Obstructive sleep apnea (adult) (pediatric); I27.21 Secondary pulmonary arterial hypertension; I35.0 Nonrheumatic aortic (valve) stenosis; L40.9 Psoriasis, unspecified; Q24.4 Congenital subaortic stenosis; E11.9 Type 2 diabetes mellitus without complications; I35.2 Nonrheumatic aortic (valve) stenosis with insufficiency; I11.0 Hypertensive heart disease with heart failure; I50.32 Chronic diastolic (congestive) heart failure; J45.909 Unspecified asthma, uncomplicated; Z86.16 Personal history of COVID-19; Z85.42 Personal history of malignant neoplasm of other parts of uterus; Z95.2 Presence of prosthetic heart valve; Z79.01 Long term (current) use of anticoagulants; Z79.82 Long term (current) use of aspirin; Z79.84 Long term (current) use of oral hypoglycemic drugs; Z79.899 Other long term (current) drug therapy
CPT/HCPCS: 43239; 45378; 36416; 82962; 85610; 88305; 88342; J7120; J1610; J2405

== ENCOUNTER 2021-02-27 09:20 | Outpatient (RCR) | payer MEDICAID, SELFPAY ==
[2021-01-04 00:46] VITALS: BMI 39.5
[2021-02-08 16:41] LABS: International Normalized Ratio 2.2; Prothrombin Time (Protime)PT. 24.1 SECONDS (11.7-14.9)
[2021-02-27 10:58] LABS: Microalbumin,Random Urine 24.9 mg/L (NO RANGE EST.)
[2021-02-27 11:18] LABS: ALB/GLOB Ratio 0.8 RATIO (0.9-2.4); AST(SGOT) 27 U/L (15-37); Alanine Aminotransfer ALT/SGPT 26 U/L (13-56); Albumin, Serum 3.3 g/dL (3.2-5.0); Alkaline Phosphatase 45 U/L (45-117); Anion Gap 7 (5-15); BUN 18 mg/dL (7-18); BUN/Creat Ratio 24.9 RATIO (10-20); Bilirubin, Direct 0.16 mg/dL (0.00-0.30); CPK Total, Creatine Kinase 217 U/L (26-192); Calcium,Total 8.8 mg/dL (8.5-10.1); Chloride 98 mmol/L (98-107); Cholesterol 205 mg/dL (200); Creatinine, Serum 0.72 mg/dL (0.55-1.02); EST Glomerular Filtration Rate 88 mL/min (>60); Est Glom Filt Rate - Afr Amer 106 mL/min (>60); Globulin 4.4 g/dL (2.2-4.2); Glucose 123 mg/dL (74-106); High Density Lipoprotein 35 mg/dL; Magnesium 1.9 mg/dL (1.6-2.6); Potassium 3.4 mmol/L (3.5-5.1); Protein, Total 7.7 g/dL (6.4-8.2); Sodium Level 138 mmol/L (136-145); Triglycerides 188 mg/dL; Very Low Density Lipoprotein 38 mg/dL (5-40)
== END 2021-03-05 18:00 | disposition home or self-care (01) ==
LOC: LAB 09:20
PROVIDERS: Physician Assistant Medical; Referring Provider Internal Medicine Cardiovascular Disease; Visit Provider Internal Medicine Cardiovascular Disease
DX: Z95.2 Presence of prosthetic heart valve (principal); Z79.01 Long term (current) use of anticoagulants; E11.65 Type 2 diabetes mellitus with hyperglycemia; M79.669 Pain in unspecified lower leg
CPT/HCPCS: 36415; 80053; 80061; 82043; 82248; 82550; 83735; 85610

== ENCOUNTER 2021-05-30 10:44 | Outpatient (RCR) | payer MEDICAID, SELFPAY ==
[2021-03-06 02:34] VITALS: BMI 39.5
[2021-05-15 12:03] LABS: International Normalized Ratio 3.9; Prothrombin Time (Protime)PT. 37.4 SECONDS (11.7-14.9)
[2021-05-24 18:27] LABS: ALB/GLOB Ratio 0.8 RATIO (0.9-2.4); AST(SGOT) 23 U/L (15-37); Alanine Aminotransfer ALT/SGPT 25 U/L (13-56); Albumin, Serum 3.8 g/dL (3.2-5.0); Alkaline Phosphatase 45 U/L (45-117); Anion Gap 6 (5-15); BUN 20 mg/dL (7-18); BUN/Creat Ratio 21.6 RATIO (10-20); CPK Total, Creatine Kinase 71 U/L (26-192); Calcium,Total 8.8 mg/dL (8.5-10.1); Chloride 100 mmol/L (98-107); Creatinine, Serum 0.92 mg/dL (0.55-1.02); EST Glomerular Filtration Rate 66 mL/min (>60); Est Glom Filt Rate - Afr Amer 80 mL/min (>60); Globulin 4.6 g/dL (2.2-4.2); Glucose 98 mg/dL (74-106); Magnesium 1.7 mg/dL (1.6-2.6); Potassium 3.4 mmol/L (3.5-5.1); Protein, Total 8.4 g/dL (6.4-8.2); Sodium Level 136 mmol/L (136-145)
[2021-05-24 19:18] LABS: Prothrombin Time (Protime)PT. 39.2 SECONDS (11.7-14.9)
[2021-05-24 19:19] LABS: International Normalized Ratio 4.1
[2021-05-30 12:01] LABS: International Normalized Ratio 2.4; Prothrombin Time (Protime)PT. 25.8 SECONDS (11.7-14.9)
[2021-05-30 12:24] LABS: Anion Gap 6 (5-15); BUN 18 mg/dL (7-18); BUN/Creat Ratio 22.7 RATIO (10-20); Calcium,Total 9.2 mg/dL (8.5-10.1); Chloride 101 mmol/L (98-107); Cholesterol 214 mg/dL (200); Creatinine, Serum 0.79 mg/dL (0.55-1.02); EST Glomerular Filtration Rate 79 mL/min (>60); Est Glom Filt Rate - Afr Amer 96 mL/min (>60); Glucose 129 mg/dL (74-106); High Density Lipoprotein 36 mg/dL; Potassium 3.5 mmol/L (3.5-5.1); Sodium Level 138 mmol/L (136-145); Triglycerides 222 mg/dL; Very Low Density Lipoprotein 44 mg/dL (5-40)
== END 2021-05-30 23:59 | disposition home or self-care (01) ==
LOC: LAB 10:44
PROVIDERS: Nurse Practitioner Adult Health; Physician Assistant Medical; Referring Provider Internal Medicine Cardiovascular Disease; Visit Provider Internal Medicine Cardiovascular Disease
DX: E87.6 Hypokalemia (principal); Z95.2 Presence of prosthetic heart valve; Z79.01 Long term (current) use of anticoagulants
CPT/HCPCS: 36415; 80048; 80053; 80061; 82550; 83735; 85610

== ENCOUNTER 2021-06-15 06:28 | Emergency (ER) | payer MEDICAID, SELFPAY ==
[2021-06-15 06:30] VITALS: BP 161/66; PULSE 61; RESP 20; TEMP 36.7; O2SAT 98; BMI 40.6
--- NOTE | 2021-06-15 06:45 | EKG12_ITS ---
Test Reason : CP Blood Pressure : / mmHG Vent. Rate : 057 BPM Atrial Rate : 066 BPM P-R Int : 000 ms QRS Dur : 146 ms QT Int : 528 ms P-R-T Axes : 000 -37 154 degrees QTc Int : 513 ms Atrial fibrillation Left axis deviation Left bundle branch block Abnormal ECG Confirmed by KATRINA ARREOLA, TENNILLE ([id number]), deputy editor in chief MOOK QUEEN ([id number]) on 06/17/2021 11:06:32 AM Referred By: TL Confirmed By:TENNILLE HERNDON MD
[2021-06-15 06:47] VITALS: O2SAT 97
--- NOTE | 2021-06-15 06:58 | ED.VIS.CHEST ---
HPI <Dr. Nitesh Jo DO - Last Filed: 06/22/21 23:52> History of Present Illness Chief Complaint: Chest Pain Informant: patient Narrative Narrative: Intermittent midsternal chest tightness for the past 2 days. She is attribute this to stress. She has been helping with a 2-month-old. States symptoms not last more than a minute. No radicular symptoms. She has had a dry cough since being diagnosed with Covid at the end of April. She was vaccinated however no booster due to the Covid infection. History of mechanical valve repair x2 followed by Dr. Whelan. Her INR checked this past Thursday was 2.9. Reports heart failure history notes swelling in her thighs. Denies orthopnea. She has been having dyspnea since her Covid. Heart cath 5 years ago no history of SD. Denies any fevers. Denies any current chest pains. She states she came in this morning due to increasing nausea however currently subsided. Hypertension history, hyperlipidemia. [facility] <Dr. Nitesh Jo DO - Last Filed: 06/22/21 23:52> [facility] Medical History Allergic rhinitis Anxiety Asthma Bilateral pleural effusion Cancer Chronic diastolic (congestive) heart failure Congenital subaortic stenosis of membranous type COVID-19 COVID-19 virus detected (07/05/20) CPAP (continuous positive airway pressure) dependence Endometrial cancer Essential (primary) hypertension History of bacterial endocarditis HLD (hyperlipidemia) Hypertension Left bundle branch block Morbid obesity Narcolepsy Nonrheumatic aortic (valve) stenosis with insufficiency Nonrheumatic mitral valve insufficiency Obesity Obstructive sleep apnea On home oxygen therapy Positive GBS test Psoriasis Secondary pulmonary arterial hypertension Streptococcal septicemia Subvalvar aortic stenosis Wears dentures Wears glasses Home Medications aspirin 81 mg PO DAILY@199905/30/16 [History Last Taken 07/10/20] multivitamin with folic acid 1 tab PO DAILY 05/30/16 [History Last Taken 07/10/20] metformin 500 mg tablet 250 mg PO DAILY tab 08/16/19 [History Last Taken 07/10/20] Potassium Chloride [Klor-Con M20] 40 meq PO DAILY 05/21/20 [History Last Taken 07/10/20] loratadine 10 mg PO DAILY 05/21/20 [History Last Taken 07/10/20] melatonin 5 mg PO QHS 05/21/20 [History Last Taken 07/09/20] omeprazole 40 mg PO DAILY 05/21/20 [History Last Taken 02/04/21] albuterol sulfate 90 mcg/actuation aerosol inhaler 2 puff INHALATION Q4H PRN #8.5 gm 07/03/20 [Rx Last Taken Unknown] warfarin 7.5 mg tablet 7.5 mg PO DAILY #90 tab 10/17/20 [Rx Last Taken Unknown] acetaminophen 500 mg tablet 1,000 mg PO DAILY tab 11/08/20 [History Last Taken Unknown] cholecalciferol (vitamin D3) 1,250 mcg (50,000 unit) capsule 1,250 mcg PO QWEEK cap 11/08/20 [History Last Taken Unknown] duloxetine 60 mg capsule,delayed release 120 mg PO DAILY cap 11/08/20 [History Last Taken Unknown] warfarin 5 mg tablet 2.5 mg PO DAILY 11/22/20 [History Last Taken 01/31/21] torsemide 20 mg tablet 40 mg PO DAILY #180 tab 11/30/20 [Rx Last Taken Unknown] metoprolol tartrate 25 mg tablet 25 mg PO BID #180 tab 12/11/20 [Rx Last Taken 02/04/21] pravastatin 40 mg tablet 20 mg PO QHS #45 tab 01/02/21 [Rx Last Taken Unknown] diphenhydramine HCl [Benadryl] 25 mg PO QHS 01/30/21 [History Last Taken Unknown] guaifenesin 600 mg tablet, extended release 12 hr 600 mg PO Q12H PRN #14 tab 03/02/21 [Rx Last Taken Unknown] fluticasone propionate 50 mcg/actuation nasal spray,suspension 2 spray INTRANASAL QDAY #1 device 04/26/21 [Rx Last Taken Unknown] Allergy/AdvReac Type Severity Reaction Status Date / Time clarithromycin [From Biaxin] Allergy Severe SOB, hives Verified 06/15/21 06:35 and swelling cephalexin [Cephalexin] Allergy Rash Verified 06/15/21 06:35 simvastatin Allergy Rash Verified 06/15/21 06:35 sulfamethoxazole Allergy Rash Verified 06/15/21 06:35 trimethoprim Allergy Rash/leg Verified 06/15/21 06:35 swelling bupropion AdvReac Severe worsened Verified 06/15/21 06:35 depression ciprofloxacin AdvReac Itching Verified 06/15/21 06:35 Macrolide Antibiotics AdvReac Unknown Verified 06/15/21 06:35 Penicillins AdvReac Unknown Verified 06/15/21 06:35 adhesive tape Allergy Itching Uncoded 05/01/21 13:05 Family History Father CAD (coronary artery disease) Hypertension Mother , age 55 Sudden cardiac Hypertension Abdominal aortic aneurysm rupture Brother Hypertension Sister Hypertension Surgical History H/O bilateral salpingo-oophorectomy (01/2020) History of mechanical aortic valve replacement (05/13/16) History of mitral valve replacement with mechanical valve (05/13/16) History of robot-assisted laparoscopic hysterectomy (01/2020) History of tubal ligation HX venous access device placed Resection of subaortic membrane (2002) Social History household members: spouse number of children: 4 current occupational status: unemployed history of recent travel: No sexually active: Yes Smoking Status: Never smoker alcohol intake: never substance use type: does not use diet: low carbohydrate caffeine: No what type of physical activity do you participate in: walking seatbelt use: always do you feel safe at home: Yes additional social history: - Dylan DAIGLE <Dr. Nitesh Jo DO - Last Filed: 06/22/21 23:52> ROS ED Constitutional Constitutional ED: Denies chills, fever(s) or sweats Eyes Eyes: Denies change in vision ENT ENT ED: Denies dysphagia or sore throat Cardiovascular Cardiovascular: Reports chest pain; Denies leg edema, palpitations or racing heartbeat Respiratory/Chest Respiratory/Chest: Reports cough and dyspnea; Denies dyspnea on exertion Gastrointestinal Gastrointestinal: Reports nausea; Denies abdominal pain, diarrhea or vomiting Genitourinary Genitourinary ED: Denies dysuria, hematuria or urinary frequency Musculoskeletal Musculoskeletal: Denies back pain, extremity pain or neck pain Integumentary Denies rash or wounds Neurologic Neurologic: Denies headache(s), paresthesias or weakness EXAM <Dr. Nitesh Jo DO - Last Filed: 06/22/21 23:52> Physical Exam Const Vital Signs: 06/15/21 06:30 06/15/21 06:35 06/15/21 06:47 Temperature 98.1 F Temperature Source Oral Pulse Rate 61 Respiratory Rate 20 H Respiratory Effort Normal Respiratory Pattern Normal Blood Pressure 161/66 H Blood Pressure Mean 97 Pulse Ox 98 97 Oxygen Delivery Method Room Air Room Air 06/15/21 07:58 06/15/21 08:56 Temperature Temperature Source Pulse Rate 65 61 Respiratory Rate 18 13 Respiratory Effort Respiratory Pattern Blood Pressure 129/67 H 134/73 H Blood Pressure Mean 87 93 Pulse Ox 93 97 Oxygen Delivery Method Room Air Room Air Positive well nourished and well developed General Appearance ED: well developed and NAD HEENT Reports moist mucous membranes normocephalic and atraumatic Eyes PERRL, EOMs intact bilaterally and conjunctivae normal General Eye ED: Yes normal appearance of both eyes Neck no lymphadenopathy and supple General: Negative for tenderness Chest Wall Chest: Negative for tenderness Resp normal respiratory effort and normal air movement Effort and Inspection: symmetric chest movement; Negative for respiratory distress Cardio regular rate, regular rhythm and no murmurs Peripheral Pulses: pulses 2+ throughout GI normal to inspection, nondistended, normoactive bowel sounds and non-tender GI Narrative: No guarding or rebound. Palpation: Negative for guarding or rebound tenderness present Back/Spine no CVA tenderness and no thoracic nor lumbar tenderness Extremity normal to inspection General Extremety ED: Negative for edema or tenderness General Extremity: Negative for edema Neuro oriented x3 and no sensory deficits noted Sensorium / Orientation: awake and alert Skin no rashes or lesions noted and no wounds <Dr. Jose Daniel Villafana MD - Last Filed: 06/15/21 09:39> Physical Exam Const Vital Signs: 06/15/21 06:30 06/15/21 06:35 06/15/21 06:47 Temperature 98.1 F Temperature Source Oral Pulse Rate 61 Respiratory Rate 20 H Respiratory Effort Normal Respiratory Pattern Normal Blood Pressure 161/66 H Blood Pressure Mean 97 Pulse Ox 98 97 Oxygen Delivery Method Room Air Room Air 06/15/21 07:58 06/15/21 08:56 Temperature Temperature Source Pulse Rate 65 61 Respiratory Rate 18 13 Respiratory Effort Respiratory Pattern Blood Pressure 129/67 H 134/73 H Blood Pressure Mean 87 93 Pulse Ox 93 97 Oxygen Delivery Method Room Air Room Air <Dr. Nitesh Le, DO - Last Filed: 06/22/21 23:52> Heart Score History: Slightly/Non-Suspicious ECG: Nonspecific Repolarization Age: >45 - <65 years Risk Factors: >/= 3 Risk Factors or History of CAD Score: 4 [facility] <Dr. Nitesh Jo, DO - Last Filed: 06/22/21 23:52> [facility] Narrative Medical decision making narrative: Patient is EKG notes a new atrial fibrillation is rate controlled she is on a beta-radha. Chronic left bundle branch block chronic T wave inversions in the lateral leads. She declines any nausea medicine at this time. Cardiac work-up will be pursued for further evaluation. Cardiac work-up initial enzyme 11. Hemoglobin 13.2. INR 3.4, therapeutic for her mechanical valve. Lower clinical concerns for PE with therapeutic INR. Chest x-ray per radiology bibasilar atelectasis versus infiltrate. Was also reviewed by myself. Patient reporting more dry cough since her Covid her white count 5.9. Low concerns for pneumonia. Vitals are stable, pending BNP results and repeat troponin. Will reevaluate. Patient signed out to oncoming physician. Lab Data Attestation: I reviewed the patient's lab results. Labs: Laboratory Results - last 24 hr 06/15/21 06/15/21 06/15/21 06:50 06:50 06:50 WBC 5.9 RBC 4.12 L Hgb 13.2 Hct 39.2 MCV 95.1 MCH 32.0 MCHC 33.7 RDW Std Deviation 47.7 H RDW Coeff of Ham 13.6 Plt Count 239 MPV 10.5 Immature Gran % (Auto) 0.300 Neut % (Auto) 46.2 L Lymph % (Auto) 40.0 [place] % (Auto) 9.6 Eos % (Auto) 3.4 Baso % (Auto) 0.5 Absolute Neuts (auto) 2.7 Absolute Lymphs (auto) 2.37 Nucleated RBC % 0 PT 33.2 H INR 3.4 APTT 41.3 H Sodium 139 Potassium 3.6 Chloride 101 Carbon Dioxide 34.0 H Anion Gap 4 L BUN 17 Creatinine 0.81 Estim Creat Clear Calc 72.72 Est GFR (MDRD) Af Amer 93 Est GFR (MDRD) Non-Af 77 BUN/Creatinine Ratio 21.0 H Glucose 136 H Calcium 8.8 Troponin I High Sens 11 B-Natriuretic Peptide 06/15/21 06/15/21 06:50 08:54 WBC RBC Hgb Hct MCV MCH MCHC RDW Std Deviation RDW Coeff of Ham Plt Count MPV Immature Gran % (Auto) Neut % (Auto) Lymph % (Auto) [place] % (Auto) Eos % (Auto) Baso % (Auto) Absolute Neuts (auto) Absolute Lymphs (auto) Nucleated RBC % PT INR APTT Sodium Potassium Chloride Carbon Dioxide Anion Gap BUN Creatinine Estim Creat Clear Calc Est GFR (MDRD) Af Amer Est GFR (MDRD) Non-Af BUN/Creatinine Ratio Glucose Calcium Troponin I High Sens 12 B-Natriuretic Peptide 100.2 H Radiography Chest X-Ray - ED: 1 View, Read by ED Physician and Read by Radiologist Diagnostic Testing: Clinical Impression(s) from Imaging Studies Chest X-Ray 06/15/21 07:14 IMPRESSION: Mild bibasilar filtration or atelectasis. Electronically Signed: Guerrero Baca MD at 7:36 EST , EKG Initial EKG: Attestation: I personally reviewed and interpreted this EKG as follows: Comments: Atrial fibrillation rate of 57, no ST changes. T wave inversions lateral leads left bundle branch block. New atrial fibrillation chronic left bundle branch block from previous EKG. <Dr. Jose Daniel Villafana MD - Last Filed: 06/15/21 09:39> [facility] Lab Data Attestation: I reviewed the patient's lab results. Lab results narrative: First troponin was normal but greater than 8. 2-hour troponin was obtained. 2-hour troponin is 12 and still normal with a delta of 1. Patient was discharged to home to follow-up with her primary care physician and Dr. Harrell, her fuel handler. CBC is unremarkable. Coags are within therapeutic range. Basic metabolic panel reveals elevated CO2 most likely due to pickwickian syndrome or obstructive sleep apnea. Labs: Laboratory Results - last 24 hr 06/15/21 06/15/21 06/15/21 06:50 06:50 06:50 WBC 5.9 RBC 4.12 L Hgb 13.2 Hct 39.2 MCV 95.1 MCH 32.0 MCHC 33.7 RDW Std Deviation 47.7 H RDW Coeff of Ham 13.6 Plt Count 239 MPV 10.5 Immature Gran % (Auto) 0.300 Neut % (Auto) 46.2 L Lymph % (Auto) 40.0 [place] % (Auto) 9.6 Eos % (Auto) 3.4 Baso % (Auto) 0.5 Absolute Neuts (auto) 2.7 Absolute Lymphs (auto) 2.37 Nucleated RBC % 0 PT 33.2 H INR 3.4 APTT 41.3 H Sodium 139 Potassium 3.6 Chloride 101 Carbon Dioxide 34.0 H Anion Gap 4 L BUN 17 Creatinine 0.81 Estim Creat Clear Calc 72.72 Est GFR (MDRD) Af Amer 93 Est GFR (MDRD) Non-Af 77 BUN/Creatinine Ratio 21.0 H Glucose 136 H Calcium 8.8 Troponin I High Sens 11 B-Natriuretic Peptide 06/15/21 06/15/21 06:50 08:54 WBC RBC Hgb Hct MCV MCH MCHC RDW Std Deviation RDW Coeff of Ham Plt Count MPV Immature Gran % (Auto) Neut % (Auto) Lymph % (Auto) [place] % (Auto) Eos % (Auto) Baso % (Auto) Absolute Neuts (auto) Absolute Lymphs (auto) Nucleated RBC % PT INR APTT Sodium Potassium Chloride Carbon Dioxide Anion Gap BUN Creatinine Estim Creat Clear Calc Est GFR (MDRD) Af Amer Est GFR (MDRD) Non-Af BUN/Creatinine Ratio Glucose Calcium Troponin I High Sens 12 B-Natriuretic Peptide 100.2 H Radiography Diagnostic Testing: Clinical Impression(s) from Imaging Studies Chest X-Ray 06/15/21 07:14 IMPRESSION: Mild bibasilar filtration or atelectasis. Electronically Signed: Guerrero Baca MD at 7:36 EST , Discharge Plan Triage Chief Complaint: Chest Pain ED Provider: Nitesh Jo Dx/Rx/DC Orders Clinical Impression: Chest pain, Left bundle branch block, Chronic diastolic (congestive) heart failure, History of mitral valve replacement with mechanical valve, History of mechanical aortic valve replacement, senior living (current) use of anticoagulants, History of obstructive sleep apnea, Atrial fibrillation, new onset Instructions: ED Chest Pain, Uncertain Cause Prescriptions: No Action duloxetine [Cymbalta] 60 mg capsule,delayed release(DR/EC) 120 mg PO DAILY RF: 0 metformin 500 mg tablet 250 mg PO DAILY RF: 0 albuterol sulfate [Ventolin HFA] 90 mcg/actuation HFA aerosol inhaler 2 puff INHALATION Q4H PRN (Reason: shortness of breath or wheezing) Qty: 8.5 RF: 6 metoprolol tartrate 25 mg tablet 25 mg PO BID Qty: 180 RF: 3 acetaminophen [Tylenol Extra Strength] 500 mg tablet 1,000 mg PO DAILY RF: 0 guaifenesin [Mucinex] 600 mg tablet extended release 12hr 600 mg PO Q12H PRN (Reason: cough, congestion) Qty: 14 RF: 0 aspirin 81 MG tablet,chewable 81 mg PO DAILY@2000 RF: 0 multivitamin with folic acid 1 TABLET tablet 1 tab PO DAILY RF: 0 omeprazole 40 MG capsule,delayed release(DR/EC) 40 mg PO DAILY RF: 0 melatonin 5 MG capsule 5 mg PO QHS RF: 0 Potassium Chloride [Klor-Con M20] 20 MEQ Tab.Er.Prt 40 meq PO DAILY RF: 0 loratadine 10 MG tablet 10 mg PO DAILY RF: 0 cholecalciferol (vitamin D3) 1,250 mcg (50,000 unit) capsule 1,250 mcg PO QWEEK RF: 0 diphenhydramine HCl [Benadryl] 25 MG capsule 25 mg PO QHS RF: 0 warfarin 7.5 mg tablet 7.5 mg PO DAILY Qty: 90 RF: 3 warfarin 5 mg tablet 2.5 mg PO DAILY RF: 0 torsemide 20 mg tablet 40 mg PO DAILY Qty: 180 RF: 3 pravastatin 40 mg tablet 20 mg PO QHS Qty: 45 RF: 3 fluticasone propionate [Flonase Allergy Relief] 50 mcg/actuation spray,suspension 2 spray INTRANASAL QDAY Qty: 1 RF: 3 Primary Care Provider: Marta Luna Referrals: iDck Whelan MD [STAFF PHYSICIAN] - 3-5 Days Marta Luna NP-C [Primary Care Provider] - Disposition Disposition: Home, Self Care Discharge Date/Time: 06/15/21 23:59
[2021-06-15] MEDS: Aspirin 81 MG TAB.CHEW 324 MG PO (06:59)
[2021-06-15 07:01] LABS: Absolute Lymphocyte Count 2.37 X10^3/uL (0.83-4.51); Absolute Neutrophil Count 2.7 X10^3/uL (2.0-7.7); Basophil# 0.03 X10^3/uL; Basophil% 0.5 % (0-1); Eosinophils% 3.4 % (0-5); Hematocrit 39.2 % (37-47); Hemoglobin 13.2 g/dL (12.0-15.0); Lymphocyte # 2.37 X10^3/ul (0.83-4.51); Mean Corp Hgb Conc 33.7 g/dL (32-36); Mean Corpuscular Volume 95.1 fL (81-99); Mean Platelet Vol. 10.5 fl (6.2-12.0); Monocyte# 0.57 X10^3/uL; Monocyte% 9.6 % (0-10); NRBC Flagged by Analyzer 0 % (0-5); Neutrophil # 2.74 X10^3/uL (2.7-7.7); Neutrophil % 46.2 % (47-70); Platelet Count 239 K/mm3 (150-450); RBC Distribution Width CV 13.6 % (11.6-14.6); RBC Distribution Width SD 47.7 fl (35.1-43.9); Red Blood Count 4.12 M/mm3 (4.2-5.4); White Blood Count 5.9 K/mm3 (4.4-11.0)
[2021-06-15 07:11] LABS: International Normalized Ratio 3.4; Partial Thromboplast Time 41.3 Seconds (24.1-36.2); Prothrombin Time (Protime)PT. 33.2 SECONDS (11.7-14.9)
--- NOTE | 2021-06-15 07:14 | RAD_ITS ---
EXAM: XR Chest, 1 View CLINICAL INDICATION: 61 years old, Female; chest pain TECHNIQUE: Frontal view of the chest. This report was created using [employer] report generation technology. COMPARISON: XR Chest dated 10/18/2019 FINDINGS: Lungs and pleural spaces: Mild bibasilar filtration or atelectasis. No pneumothorax. No effusion. Heart: Cardiac valve prosthesis. Mediastinum: Central airways and mediastinal contour are unremarkable. Bones/joints: Median sternotomy. Soft tissues: Unremarkable. RAD/Chest 1 View (Portable) IMPRESSION: Mild bibasilar filtration or atelectasis. Electronically Signed: Guerrero Baca MD at 7:36 EST ,
[2021-06-15 07:18] LABS: Anion Gap 4 (5-15); BUN 17 mg/dL (7-18); Calcium,Total 8.8 mg/dL (8.5-10.1); Chloride 101 mmol/L (98-107); Creatinine, Serum 0.81 mg/dL (0.55-1.02); EST Glomerular Filtration Rate 77 mL/min (>60); Est Glom Filt Rate - Afr Amer 93 mL/min (>60); Estimated Creatinine Clearance 72.72 ml/min; Glucose 136 mg/dL (74-106); Potassium 3.6 mmol/L (3.5-5.1); Sodium Level 139 mmol/L (136-145); Troponin-I HS 11 pg/mL (3.0-54.0)
[2021-06-15 07:54] LABS: BNP,B-Type NATRIURETIC PEPTIDE 100.2 pg/mL (0-100)
[2021-06-15 07:58] VITALS: BP 129/67; PULSE 65; RESP 18; O2SAT 93
[2021-06-15 08:56] VITALS: BP 134/73; PULSE 61; RESP 13; O2SAT 97
[2021-06-15 09:15] LABS: Troponin-I HS 12 pg/mL (3.0-54.0)
[2021-06-15 09:46] VITALS: BP 148/72; PULSE 68; RESP 15; O2SAT 98
== END 2021-06-15 09:51 | disposition home or self-care (01) ==
PROVIDERS: Emergency Provider Emergency Medicine; PCP Nurse Practitioner Adult Health; Visit Provider Emergency Medicine
DX: R07.89 Other chest pain (principal); I11.0 Hypertensive heart disease with heart failure; I50.32 Chronic diastolic (congestive) heart failure; I27.21 Secondary pulmonary arterial hypertension; I48.91 Unspecified atrial fibrillation; E66.01 Morbid (severe) obesity due to excess calories; Z68.41 Body mass index [BMI] 40.0-44.9, adult; I44.7 Left bundle-branch block, unspecified; E78.5 Hyperlipidemia, unspecified; Z86.16 Personal history of COVID-19; F41.9 Anxiety disorder, unspecified; J45.909 Unspecified asthma, uncomplicated; Z85.42 Personal history of malignant neoplasm of other parts of uterus; I35.2 Nonrheumatic aortic (valve) stenosis with insufficiency; G47.33 Obstructive sleep apnea (adult) (pediatric); L40.9 Psoriasis, unspecified; Z79.82 Long term (current) use of aspirin; Z79.01 Long term (current) use of anticoagulants; Z79.899 Other long term (current) drug therapy; Z95.2 Presence of prosthetic heart valve
CPT/HCPCS: 36415; 71045; 80048; 83880; 84484; 85025; 85610; 85730; 93005; 99285; A4216

== ENCOUNTER 2021-06-24 08:56 | Outpatient (RCR) | payer MEDICAID, SELFPAY ==
[2021-06-04 10:48] VITALS: BMI 39.5
[2021-06-10 08:28] LABS: International Normalized Ratio 2.9; Prothrombin Time (Protime)PT. 29.3 SECONDS (11.7-14.9)
[2021-06-24 10:08] LABS: International Normalized Ratio 3.1; Prothrombin Time (Protime)PT. 31.3 SECONDS (11.7-14.9)
== END 2021-07-04 18:00 | disposition home or self-care (01) ==
LOC: LAB 08:56
PROVIDERS: Referring Provider Internal Medicine Cardiovascular Disease; Visit Provider Internal Medicine Cardiovascular Disease
DX: Z95.2 Presence of prosthetic heart valve (principal); Z79.01 Long term (current) use of anticoagulants
CPT/HCPCS: 36415; 85610

== ENCOUNTER 2021-07-12 13:47 | Emergency (ER) | payer MEDICAID, SELFPAY ==
[2021-07-12 13:48] VITALS: BP 166/87; PULSE 107; RESP 16; TEMP 35.5; O2SAT 95; BMI 39.1
[2021-07-12 13:50] VITALS: BP 166/87; PULSE 107; RESP 16; TEMP 35.5; O2SAT 95
--- NOTE | 2021-07-12 14:03 | EKG12_ITS ---
Test Reason : FATIGUE Blood Pressure : / mmHG Vent. Rate : 087 BPM Atrial Rate : 182 BPM P-R Int : 000 ms QRS Dur : 142 ms QT Int : 456 ms P-R-T Axes : 000 -36 142 degrees QTc Int : 548 ms Atrial Fibrillation Left axis deviation Left bundle branch block Abnormal ECG Confirmed by KATRINA ARREOLA, TENNILLE ([id number]), story editor MICHAEL DONOHUE ([id number]) on 07/17/2021 10:40:18 AM Referred By: GARRY Confirmed By:TENNILLE HERNDON MD
--- NOTE | 2021-07-12 14:05 | RAD_ITS ---
STUDY: X-RAY CHEST REASON FOR EXAM: Female, 61 years old. Cough TECHNIQUE: Single AP portable view of the chest. COMPARISON: Comparison is made with prior study dated 06/15/2021. FINDINGS: The lungs are clear and expanded. There is no demonstrated pleural abnormality. Sternal cerclage wires are present from a prior sternotomy. The patient is status post mitral valve replacement. Borderline cardiomegaly. Normal mediastinum and pauline. Normal visualized pulmonary arteries. There is atherosclerotic tortuosity of the aortic arch and descending thoracic aorta. Normal visualized thoracic spine. Normal visualized ribs, clavicles, and shoulders. There is no demonstrated abnormality of the visualized soft tissue structures of the upper abdomen. RAD/Chest 1 View (Portable) IMPRESSION: No acute abnormality is seen. Electronically Signed: Luis Boogie MD at 14:59 EDT ,
--- NOTE | 2021-07-12 14:09 | EX.ED.DYSGE1 ---
HPI <ROCK Spaulding - Last Filed: 07/12/21 16:54> History of Present Illness Chief Complaint: Fatigue Narrative Narrative: 61-year-old female with history of prosthetic valve, on Coumadin, hypertension, diabetes presents to the emergency department with 4 to 5 days of generalized malaise, feeling emotionally unstable, having full body aches and pains. Patient states that she has 2 abscesses on her inner thigh, she also states that she felt this way when she had endocarditis a few years ago. Patient denies any chest pain, shortness of breath. Patient states she has sweats however no fevers. Patient states her sugars have been all over the place. She had a fall a few days ago which she did get x-rays of her right ribs which were unremarkable. PFS <ROCK Spaulding - Last Filed: 07/12/21 16:54> [facility] Medical History Allergic rhinitis Anxiety Asthma Bilateral pleural effusion Cancer Chronic diastolic (congestive) heart failure Congenital subaortic stenosis of membranous type COVID-19 COVID-19 virus detected (07/05/20) CPAP (continuous positive airway pressure) dependence Endometrial cancer Essential (primary) hypertension History of bacterial endocarditis HLD (hyperlipidemia) Hypertension Left bundle branch block Morbid obesity Narcolepsy Nonrheumatic aortic (valve) stenosis with insufficiency Nonrheumatic mitral valve insufficiency Obesity Obstructive sleep apnea On home oxygen therapy Positive GBS test Psoriasis Secondary pulmonary arterial hypertension Streptococcal septicemia Subvalvar aortic stenosis Wears dentures Wears glasses Home Medications aspirin 81 mg PO DAILY@199905/30/16 [History Last Taken 07/10/20] multivitamin with folic acid 1 tab PO DAILY 05/30/16 [History Last Taken 07/10/20] metformin 500 mg tablet 250 mg PO DAILY tab 08/16/19 [History Last Taken 07/10/20] Potassium Chloride [Klor-Con M20] 40 meq PO DAILY 05/21/20 [History Last Taken 07/10/20] loratadine 10 mg PO DAILY 05/21/20 [History Last Taken 07/10/20] melatonin 5 mg PO QHS 05/21/20 [History Last Taken 07/09/20] omeprazole 40 mg PO DAILY 05/21/20 [History Last Taken 02/04/21] albuterol sulfate 90 mcg/actuation aerosol inhaler 2 puff INHALATION Q4H PRN #8.5 gm 07/03/20 [Rx Last Taken Unknown] warfarin 7.5 mg tablet 7.5 mg PO DAILY #90 tab 10/17/20 [Rx Last Taken Unknown] acetaminophen 500 mg tablet 1,000 mg PO DAILY tab 11/08/20 [History Last Taken Unknown] cholecalciferol (vitamin D3) 1,250 mcg (50,000 unit) capsule 1,250 mcg PO QWEEK cap 11/08/20 [History Last Taken Unknown] duloxetine 60 mg capsule,delayed release 120 mg PO DAILY cap 11/08/20 [History Last Taken Unknown] warfarin 5 mg tablet 2.5 mg PO DAILY 11/22/20 [History Last Taken 01/31/21] torsemide 20 mg tablet 40 mg PO DAILY #180 tab 11/30/20 [Rx Last Taken Unknown] metoprolol tartrate 25 mg tablet 25 mg PO BID #180 tab 12/11/20 [Rx Last Taken 02/04/21] pravastatin 40 mg tablet 20 mg PO QHS #45 tab 01/02/21 [Rx Last Taken Unknown] diphenhydramine HCl [Benadryl] 25 mg PO QHS 01/30/21 [History Last Taken Unknown] guaifenesin 600 mg tablet, extended release 12 hr 600 mg PO Q12H PRN #14 tab 03/02/21 [Rx Last Taken Unknown] fluticasone propionate 50 mcg/actuation nasal spray,suspension 2 spray INTRANASAL QDAY #1 device 04/26/21 [Rx Last Taken Unknown] Allergy/AdvReac Type Severity Reaction Status Date / Time clarithromycin [From Biaxin] Allergy Severe SOB, hives Verified 07/12/21 13:50 and swelling cephalexin [Cephalexin] Allergy Rash Verified 07/12/21 13:50 simvastatin Allergy Rash Verified 07/12/21 13:50 sulfamethoxazole Allergy Rash Verified 07/12/21 13:50 trimethoprim Allergy Rash/leg Verified 07/12/21 13:50 swelling bupropion AdvReac Severe worsened Verified 07/12/21 13:50 depression ciprofloxacin AdvReac Itching Verified 07/12/21 13:50 Macrolide Antibiotics AdvReac Unknown Verified 07/12/21 13:50 Penicillins AdvReac Unknown Verified 07/12/21 13:50 adhesive tape Allergy Itching Uncoded 07/12/21 13:50 Family History Father CAD (coronary artery disease) Hypertension Mother , age 55 Sudden cardiac Hypertension Abdominal aortic aneurysm rupture Brother Hypertension Sister Hypertension Surgical History H/O bilateral salpingo-oophorectomy (01/2020) History of mechanical aortic valve replacement (05/13/16) History of mitral valve replacement with mechanical valve (05/13/16) History of robot-assisted laparoscopic hysterectomy (01/2020) History of tubal ligation HX venous access device placed Resection of subaortic membrane (2002) Social History household members: spouse number of children: 4 current occupational status: unemployed history of recent travel: No sexually active: Yes Smoking Status: Never smoker alcohol intake: never substance use type: does not use diet: low carbohydrate caffeine: No what type of physical activity do you participate in: walking seatbelt use: always do you feel safe at home: Yes additional social history: - Dylan PILO <ROCK Spaulding - Last Filed: 07/12/21 16:54> PILO DAIGLE Narrative Constitutional: Negative for fever, chills, weight loss, weakness. Positive for sweats Eyes: Negative for vision loss, vision change, double vision ENT: Negative for any sore throat, ear pain, congestion Cardiovascular: Negative for any chest pain, tightness, palpitations, racing heartbeat Respiratory: Negative for any sputum production, hemoptysis, shortness of breath, shortness of breath on exertion, orthopnea. Positive for slight cough Gastrointestinal: Negative for any abdominal pain, nausea, vomiting, diarrhea, constipation, blood in stool, blood in vomit : Negative for any urinary frequency, incontinence, dysuria, retention, blood in urine Muscle skeletal: Negative for any muscle joint pain, stiffness,arthralgias, neck pain, back pain. Positive for myalgias Neurological: Negative for any headache, dizziness, syncope, numbness or tingling Skin: Negative for any rashes, itching, abrasions, lacerations. Positive for abscesses to the left inner thigh Psychiatric: Negative for any depression, suicidal ideation, homicidal ideation. Positive for anxiety, stress Hematologic: Negative for any easy bruising, excessive bruising, easy bleeding Allergies: Negative for any eczema, hives, rash EXAM <Supa SultanaROCK - Last Filed: 07/12/21 16:54> Physical Exam Narrative Exam Narrative: Vital signs reviewed. Patient appears well, patient appears nontoxic, vital signs are stable. HEET: Head normocephalic atraumatic, TMs clear bilaterally. Posterior pharynx is clear, moist mucous membranes. Nares clear bilaterally. Neck: Supple with no lymphadenopathy or tenderness. No signs of meningismus, negative jolt sign. Cardiac: Regular rate and rhythm no murmurs gallops or rubs, equal peripheral pulses bilaterally. Patient does have prosthetic valves which can be heard on auscultation Respiratory: Lungs clear to auscultation bilaterally. No chest tenderness. Abdomen: Soft, nontender, nondistended. No abdominal bruit or pulsatile masses. No hepatosplenomegaly Extremities: No peripheral edema, no signs of gross trauma or deformity. Active full range of motion of all extremities. Patient does have abrasion, ecchymosis to the right knee, this is old from her previous fall. Neuro: Cranial nerves II through XII intact, no focal neurological deficits. Skin: Clean dry and intact with no rash, purpura, petechiae, vesicles or pustules. Patient does have small which appear to be pimples on her left inner thigh, these show no erythema, edema, drainage. These are not significant to I&D. These are very superficial. Backslash flank: No CVA tenderness, no midline spinal tenderness, no deformity. Psych: Normal mood and affect. No SI, HI or acute psychosis. Const Vital Signs: 07/12/21 13:48 07/12/21 13:50 07/12/21 13:57 Temperature 96 F L 96 F L Temperature Source Temporal Temporal Pulse Rate 107 H 107 H Respiratory Rate 16 16 Respiratory Pattern Normal Blood Pressure 166/87 H 166/87 H Blood Pressure Mean 113 113 Pulse Ox 95 95 Oxygen Delivery Method Room Air Room Air 07/12/21 17:02 Temperature Temperature Source Pulse Rate 79 Respiratory Rate 16 Respiratory Pattern Blood Pressure 132/86 H Blood Pressure Mean Pulse Ox 97 Oxygen Delivery Method Positive well nourished, well developed and obese General Appearance ED: well developed Nutritional Appearance: obese <Dr. Supa Shahid MD - Last Filed: 07/12/21 18:10> Physical Exam Const Vital Signs: 07/12/21 13:48 07/12/21 13:50 07/12/21 13:57 Temperature 96 F L 96 F L Temperature Source Temporal Temporal Pulse Rate 107 H 107 H Respiratory Rate 16 16 Respiratory Pattern Normal Blood Pressure 166/87 H 166/87 H Blood Pressure Mean 113 113 Pulse Ox 95 95 Oxygen Delivery Method Room Air Room Air 07/12/21 17:02 Temperature Temperature Source Pulse Rate 79 Respiratory Rate 16 Respiratory Pattern Blood Pressure 132/86 H Blood Pressure Mean Pulse Ox 97 Oxygen Delivery Method MDM <ROCK Spaulding - Last Filed: 07/12/21 16:54> [facility] Narrative Medical decision making narrative: Patient appears well, patient appears nontoxic, vital signs are stable. Patient presents to the emergency department with complaints of 5 to 6 days of generalized feeling unwell, she is concerned because this is how her endocarditis started years ago. Patient did receive multiple laboratory values. Patient CBC was unremarkable. Patient's chemistries were unremarkable, patient's blood sugar was slightly elevated 207. Patient did receive a negative troponin, she also had a negative segmentation rate at 25. Patient's chest x-ray showed no acute abnormality. She did have an EKG that was unremarkable. She did receive a COVID-19/influenza test which was negative. I did look at her abscesses on her left inner thigh, these were small, not infected, and did not have to be drained or required antibiotics. At this time, she does have a negative emergency department work-up. Patient on reassessment feels much better, patient states that she was very anxious. Patient will follow up closely with her PCP as well as her supply chain planner. Patient also received 3 sets of blood cultures per endocarditis guidelines. She will be called if any of these grow any organisms. At this time, patient feels safe for discharge instructed return for any worsening symptoms. Lab Data Attestation: I reviewed the patient's lab results. Labs: Laboratory Results - last 24 hr 07/12/21 07/12/21 07/12/21 14:10 14:10 14:10 WBC 6.8 RBC 4.59 Hgb 14.2 Hct 42.4 MCV 92.4 MCH 30.9 MCHC 33.5 RDW Std Deviation 45.8 H RDW Coeff of Ham 13.4 Plt Count 279 MPV 10.0 Immature Gran % (Auto) 0.400 Neut % (Auto) 60.8 Lymph % (Auto) 28.7 Letcher % (Auto) 7.6 Eos % (Auto) 2.1 Baso % (Auto) 0.4 Absolute Neuts (auto) 4.1 Absolute Lymphs (auto) 1.96 Nucleated RBC % 0 ESR 25 Sodium 135 L Potassium 3.4 L Chloride 100 Carbon Dioxide 29.0 Anion Gap 6 BUN 15 Creatinine 0.86 Estim Creat Clear Calc 68.49 Est GFR (MDRD) Af Amer 87 Est GFR (MDRD) Non-Af 72 BUN/Creatinine Ratio 17.4 Glucose 207 H Calcium 8.6 Troponin I High Sens 11 Urine Color Urine Clarity Urine pH Ur Specific [place] Urine Protein Urine Glucose (UA) Urine Ketones Urine Occult Blood Urine Nitrite Urine Bilirubin Urine Urobilinogen Ur Leukocyte Esterase Urine RBC Urine WBC Ur Squamous Epith Cells Urine Bacteria Urine Mucus 07/12/21 14:40 WBC RBC Hgb Hct MCV MCH MCHC RDW Std Deviation RDW Coeff of Ham Plt Count MPV Immature Gran % (Auto) Neut % (Auto) Lymph % (Auto) Letcher % (Auto) Eos % (Auto) Baso % (Auto) Absolute Neuts (auto) Absolute Lymphs (auto) Nucleated RBC % ESR Sodium Potassium Chloride Carbon Dioxide Anion Gap BUN Creatinine Estim Creat Clear Calc Est GFR (MDRD) Af Amer Est GFR (MDRD) Non-Af BUN/Creatinine Ratio Glucose Calcium Troponin I High Sens Urine Color Yellow Urine Clarity Clear Urine pH 6.0 Ur Specific [place] 1.015 Urine Protein 15 H Urine Glucose (UA) Normal Urine Ketones Negative Urine Occult Blood 10 H Urine Nitrite Negative Urine Bilirubin Negative Urine Urobilinogen Normal Ur Leukocyte Esterase 100 H Urine RBC 0 SEEN Urine WBC 0-5 SEEN Ur Squamous Epith Cells 0-5 SEEN Urine Bacteria 0 SEEN Urine Mucus 0 SEEN Radiography Chest X-Ray - ED: 1 View Diagnostic Testing: Clinical Impression(s) from Imaging Studies Chest X-Ray 07/12/21 14:05 IMPRESSION: No acute abnormality is seen. Electronically Signed: Luis Boogie MD at 14:59 EDT , <Dr. Supa Shahid MD - Last Filed: 07/12/21 18:10> [facility] MDM Narrative Medical decision making narrative: I have personally performed a face to face assessment of the patient and have reviewed the VANESSA Note. I performed a substantive portion of the visit including all aspects of the following. My krause findings include: Patient does not feel well. She has no fevers or chills or chest pain she has no headache. Patient has a normal exam, her heart shows prosthetic valvular sounds but otherwise no murmur. She has no rash, conjunctiva clear. Her blood work including ESR normal. We did send blood cultures but otherwise she appears well will be discharged in stable condition with reassurance she can follow-up with PCP for other test like B12 and such. If anything changes she is to return. Lab Data Labs: Laboratory Results - last 24 hr 07/12/21 07/12/21 07/12/21 14:10 14:10 14:10 WBC 6.8 RBC 4.59 Hgb 14.2 Hct 42.4 MCV 92.4 MCH 30.9 MCHC 33.5 RDW Std Deviation 45.8 H RDW Coeff of Ham 13.4 Plt Count 279 MPV 10.0 Immature Gran % (Auto) 0.400 Neut % (Auto) 60.8 Lymph % (Auto) 28.7 Letcher % (Auto) 7.6 Eos % (Auto) 2.1 Baso % (Auto) 0.4 Absolute Neuts (auto) 4.1 Absolute Lymphs (auto) 1.96 Nucleated RBC % 0 ESR 25 Sodium 135 L Potassium 3.4 L Chloride 100 Carbon Dioxide 29.0 Anion Gap 6 BUN 15 Creatinine 0.86 Estim Creat Clear Calc 68.49 Est GFR (MDRD) Af Amer 87 Est GFR (MDRD) Non-Af 72 BUN/Creatinine Ratio 17.4 Glucose 207 H Calcium 8.6 Troponin I High Sens 11 Urine Color Urine Clarity Urine pH Ur Specific [place] Urine Protein Urine Glucose (UA) Urine Ketones Urine Occult Blood Urine Nitrite Urine Bilirubin Urine Urobilinogen Ur Leukocyte Esterase Urine RBC Urine WBC Ur Squamous Epith Cells Urine Bacteria Urine Mucus 07/12/21 14:40 WBC RBC Hgb Hct MCV MCH MCHC RDW Std Deviation RDW Coeff of Ham Plt Count MPV Immature Gran % (Auto) Neut % (Auto) Lymph % (Auto) Letcher % (Auto) Eos % (Auto) Baso % (Auto) Absolute Neuts (auto) Absolute Lymphs (auto) Nucleated RBC % ESR Sodium Potassium Chloride Carbon Dioxide Anion Gap BUN Creatinine Estim Creat Clear Calc Est GFR (MDRD) Af Amer Est GFR (MDRD) Non-Af BUN/Creatinine Ratio Glucose Calcium Troponin I High Sens Urine Color Yellow Urine Clarity Clear Urine pH 6.0 Ur Specific [place] 1.015 Urine Protein 15 H Urine Glucose (UA) Normal Urine Ketones Negative Urine Occult Blood 10 H Urine Nitrite Negative Urine Bilirubin Negative Urine Urobilinogen Normal Ur Leukocyte Esterase 100 H Urine RBC 0 SEEN Urine WBC 0-5 SEEN Ur Squamous Epith Cells 0-5 SEEN Urine Bacteria 0 SEEN Urine Mucus 0 SEEN Radiography Diagnostic Testing: Clinical Impression(s) from Imaging Studies Chest X-Ray 07/12/21 14:05 IMPRESSION: No acute abnormality is seen. Electronically Signed: Luis Boogie MD at 14:59 EDT , Discharge Plan Triage Chief Complaint: Fatigue ED Midlevel Provider: Supa Sultana ED Provider: Supa Shahid Dx/Rx/DC Orders Clinical Impression: Viral syndrome, Fatigue, Skin pimple Instructions: ED Viral Syndrome (Adult) Prescriptions: No Action duloxetine [Cymbalta] 60 mg capsule,delayed release(DR/EC) 120 mg PO DAILY RF: 0 metformin 500 mg tablet 250 mg PO DAILY RF: 0 albuterol sulfate [Ventolin HFA] 90 mcg/actuation HFA aerosol inhaler 2 puff INHALATION Q4H PRN (Reason: shortness of breath or wheezing) Qty: 8.5 RF: 6 metoprolol tartrate 25 mg tablet 25 mg PO BID Qty: 180 RF: 3 acetaminophen [Tylenol Extra Strength] 500 mg tablet 1,000 mg PO DAILY RF: 0 guaifenesin [Mucinex] 600 mg tablet extended release 12hr 600 mg PO Q12H PRN (Reason: cough, congestion) Qty: 14 RF: 0 aspirin 81 MG tablet,chewable 81 mg PO DAILY@1999 RF: 0 multivitamin with folic acid 1 TABLET tablet 1 tab PO DAILY RF: 0 omeprazole 40 MG capsule,delayed release(DR/EC) 40 mg PO DAILY RF: 0 melatonin 5 MG capsule 5 mg PO QHS RF: 0 Potassium Chloride [Klor-Con M20] 20 MEQ Tab.Er.Prt 40 meq PO DAILY RF: 0 loratadine 10 MG tablet 10 mg PO DAILY RF: 0 cholecalciferol (vitamin D3) 1,250 mcg (50,000 unit) capsule 1,250 mcg PO QWEEK RF: 0 diphenhydramine HCl [Benadryl] 25 MG capsule 25 mg PO QHS RF: 0 warfarin 7.5 mg tablet 7.5 mg PO DAILY Qty: 90 RF: 3 warfarin 5 mg tablet 2.5 mg PO DAILY RF: 0 torsemide 20 mg tablet 40 mg PO DAILY Qty: 180 RF: 3 pravastatin 40 mg tablet 20 mg PO QHS Qty: 45 RF: 3 fluticasone propionate [Flonase Allergy Relief] 50 mcg/actuation spray,suspension 2 spray INTRANASAL QDAY Qty: 1 RF: 3 Primary Care Provider: Marta Luna Referrals: Marta Luna NP-C [Primary Care Provider] - Activity Restrictions/Additional Instructions: You had a negative work-up today in the emergency department. You had 3 sets of blood cultures drawn, you will be called if anything is grown. Please follow-up with your PCP as well as your supply chain planner. Print Language: German Disposition Disposition: Home, Self Care Discharge Date/Time: 07/12/21 17:02
[2021-07-12 14:16] LABS: Absolute Lymphocyte Count 1.96 X10^3/uL (0.83-4.51); Absolute Neutrophil Count 4.1 X10^3/uL (2.0-7.7); Basophil# 0.03 X10^3/uL; Basophil% 0.4 % (0-1); Eosinophil# 0.14 X10^3/uL; Eosinophils% 2.1 % (0-5); Hematocrit 42.4 % (37-47); Hemoglobin 14.2 g/dL (12.0-15.0); Lymphocyte # 1.96 X10^3/ul (0.83-4.51); Lymphocyte % 28.7 % (19-41); Mean Corp Hgb Conc 33.5 g/dL (32-36); Mean Corpuscular Hgb 30.9 pg (27.0-32.0); Mean Corpuscular Volume 92.4 fL (81-99); Monocyte# 0.52 X10^3/uL; Monocyte% 7.6 % (0-10); NRBC Flagged by Analyzer 0 % (0-5); Neutrophil # 4.14 X10^3/uL (2.7-7.7); Neutrophil % 60.8 % (47-70); Platelet Count 279 K/mm3 (150-450); RBC Distribution Width CV 13.4 % (11.6-14.6); RBC Distribution Width SD 45.8 fl (35.1-43.9); Red Blood Count 4.59 M/mm3 (4.2-5.4); White Blood Count 6.8 K/mm3 (4.4-11.0)
[2021-07-12 14:36] LABS: Anion Gap 6 (5-15); BUN 15 mg/dL (7-18); BUN/Creat Ratio 17.4 RATIO (10-20); Calcium,Total 8.6 mg/dL (8.5-10.1); Chloride 100 mmol/L (98-107); Creatinine, Serum 0.86 mg/dL (0.55-1.02); EST Glomerular Filtration Rate 72 mL/min (>60); Est Glom Filt Rate - Afr Amer 87 mL/min (>60); Estimated Creatinine Clearance 68.49 ml/min; Glucose 207 mg/dL (74-106); Potassium 3.4 mmol/L (3.5-5.1); Sodium Level 135 mmol/L (136-145); Troponin-I HS 11 pg/mL (3.0-54.0)
[2021-07-12 14:50] LABS: Bacteria 0 SEEN /hpf (None Seen); Mucous, Urine 0 SEEN /hpf (<or=2+); Red Blood Cells-Urine 0 SEEN /hpf (0-5)
[2021-07-12 14:53] LABS: Color, Urine Yellow (Yellow); Glucose, Dipstick Normal (Normal); Ketone-Dipstick Negative (Negative); Leukocyte Esterase-Dipstick 100 /ul (Negative); Nitrite-Dipstick Negative (Negative); Occult Blood-Urine 10 /ul (Negative); Protein-Dipstick 15 mg/dl (Negative); Specific Gravity, Urine 1.015 (1.002-1.030); Urine Bilirubin Dipstick Negative (Negative); Urine Clarity Clear (Clear); Urine Urobilinogen Normal (Normal)
[2021-07-12 14:58] LABS: Squamous Epithelial Cells - UA 0-5 SEEN /hpf (5-10); White Blood Cells 0-5 SEEN /hpf (0-5)
[2021-07-12 16:46] LABS: Erythrocyte Sedimentation Rate 25 mm/hr (0-30)
[2021-07-12 17:02] VITALS: BP 132/86; PULSE 79; RESP 16; O2SAT 97
== END 2021-07-12 17:02 | disposition home or self-care (01) ==
PROVIDERS: Nurse Practitioner; Emergency Provider Emergency Medicine; PCP Nurse Practitioner Adult Health; Visit Provider Emergency Medicine
DX: B34.9 Viral infection, unspecified (principal); I11.0 Hypertensive heart disease with heart failure; I50.32 Chronic diastolic (congestive) heart failure; I27.21 Secondary pulmonary arterial hypertension; E66.01 Morbid (severe) obesity due to excess calories; E11.9 Type 2 diabetes mellitus without complications; R23.8 Other skin changes; E78.5 Hyperlipidemia, unspecified; F41.9 Anxiety disorder, unspecified; Z86.16 Personal history of COVID-19; Z85.42 Personal history of malignant neoplasm of other parts of uterus; I35.2 Nonrheumatic aortic (valve) stenosis with insufficiency; G47.33 Obstructive sleep apnea (adult) (pediatric); L40.9 Psoriasis, unspecified; Z79.01 Long term (current) use of anticoagulants; Z79.82 Long term (current) use of aspirin; Z79.84 Long term (current) use of oral hypoglycemic drugs; Z79.899 Other long term (current) drug therapy; Z95.2 Presence of prosthetic heart valve; Z68.39 Body mass index [BMI] 39.0-39.9, adult
CPT/HCPCS: 71045; 80048; 81001; 84484; 85025; 85652; 87040; 87428; 93005; 99283; A4216

== ENCOUNTER 2021-08-02 07:08 | Outpatient (RCR) | payer MEDICAID, SELFPAY ==
[2021-07-05 02:54] VITALS: BMI 39.5
[2021-07-15 08:49] LABS: International Normalized Ratio 3.8; Prothrombin Time (Protime)PT. 36.4 SECONDS (11.7-14.9)
[2021-08-02 08:43] LABS: International Normalized Ratio 2.7; Prothrombin Time (Protime)PT. 28.4 SECONDS (11.7-14.9)
== END 2021-08-02 18:00 | disposition home or self-care (01) ==
LOC: LAB 07:08
PROVIDERS: PCP Nurse Practitioner Adult Health; Referring Provider Internal Medicine Cardiovascular Disease; Visit Provider Internal Medicine Cardiovascular Disease
DX: Z95.2 Presence of prosthetic heart valve (principal); Z79.01 Long term (current) use of anticoagulants
CPT/HCPCS: 36415; 85610

== ENCOUNTER 2021-08-27 08:22 | Outpatient (RCR) | payer MEDICAID, SELFPAY ==
[2021-08-04 04:28] VITALS: BMI 39.5
[2021-08-27 09:30] LABS: Prothrombin Time (Protime)PT. 42.7 SECONDS (11.7-14.9)
[2021-08-27 09:40] LABS: International Normalized Ratio 4.5
[2021-08-27 09:48] LABS: Hemoglobin A1c 6.1 % (3.8-5.6)
== END 2021-08-27 18:00 | disposition home or self-care (01) ==
LOC: LAB 08:22
PROVIDERS: PCP Nurse Practitioner Adult Health; Referring Provider Internal Medicine Cardiovascular Disease; Visit Provider Internal Medicine Cardiovascular Disease
DX: Z95.2 Presence of prosthetic heart valve (principal); Z79.01 Long term (current) use of anticoagulants; E11.9 Type 2 diabetes mellitus without complications
CPT/HCPCS: 36415; 83036; 85610

== ENCOUNTER 2021-09-01 08:42 | Observation (INO) | payer MEDICAID, SELFPAY ==
[2021-09-01] VITALS (11 sets, daily range): BP systolic 112–174; BP diastolic 58–134; PULSE 74–98; RESP 16–25; TEMP 36.4–37.3; O2SAT 92–99; BMI 39.1; BMI 38.3
--- NOTE | 2021-09-01 09:20 | EKG12_ITS ---
Test Reason : COUGH Blood Pressure : / mmHG Vent. Rate : 089 BPM Atrial Rate : 089 BPM P-R Int : 000 ms QRS Dur : 140 ms QT Int : 444 ms P-R-T Axes : 000 -49 138 degrees QTc Int : 540 ms Atrial fibrillation Left axis deviation Left bundle branch block Abnormal ECG Confirmed by KATRINA ARREOLA, TENNILLE ([id number]), technical editor MIKA COPE ([id number]) on 09/03/2021 1:21:38 PM Referred By: NOVA Confirmed By:TENNILLE HERNDON MD
[2021-09-01 09:48] LABS: Absolute Lymphocyte Count 1.31 X10^3/uL (0.83-4.51); Absolute Neutrophil Count 5.8 X10^3/uL (2.0-7.7); Basophil# 0.03 X10^3/uL; Basophil% 0.4 % (0-1); Eosinophil# 0.01 X10^3/uL; Eosinophils% 0.1 % (0-5); Hematocrit 43.7 % (37-47); Hemoglobin 14.9 g/dL (12.0-15.0); Lymphocyte # 1.31 X10^3/ul (0.83-4.51); Lymphocyte % 15.7 % (19-41); Mean Corp Hgb Conc 34.1 g/dL (32-36); Mean Corpuscular Hgb 31.3 pg (27.0-32.0); Mean Corpuscular Volume 91.8 fL (81-99); Mean Platelet Vol. 10.3 fl (6.2-12.0); Monocyte# 1.12 X10^3/uL; Monocyte% 13.4 % (0-10); NRBC Flagged by Analyzer 0 % (0-5); Neutrophil # 5.83 X10^3/uL (2.7-7.7); Neutrophil % 69.9 % (47-70); Platelet Count 253 K/mm3 (150-450); RBC Distribution Width CV 13.3 % (11.6-14.6); RBC Distribution Width SD 45.7 fl (35.1-43.9); Red Blood Count 4.76 M/mm3 (4.2-5.4); White Blood Count 8.3 K/mm3 (4.4-11.0)
[2021-09-01 09:55] LABS: International Normalized Ratio 1.4; Prothrombin Time (Protime)PT. 17.3 SECONDS (11.7-14.9)
[2021-09-01 10:05] LABS: AST(SGOT) 29 U/L (15-37); Alanine Aminotransfer ALT/SGPT 24 U/L (13-56); Albumin, Serum 3.8 g/dL (3.2-5.0); Alkaline Phosphatase 49 U/L (45-117); Anion Gap 7 (5-15); BNP,B-Type NATRIURETIC PEPTIDE 85.3 pg/mL (0-100); BUN 17 mg/dL (7-18); BUN/Creat Ratio 16.3 RATIO (10-20); Bilirubin, Direct 0.34 mg/dL (0.00-0.30); Calcium,Total 8.6 mg/dL (8.5-10.1); Chloride 91 mmol/L (98-107); Creatinine, Serum 1.04 mg/dL (0.55-1.02); EST Glomerular Filtration Rate 58 mL/min (>60); Est Glom Filt Rate - Afr Amer 70 mL/min (>60); Estimated Creatinine Clearance 56.64 ml/min; Globulin 5.2 g/dL (2.2-4.2); Glucose 137 mg/dL (74-106); Potassium 3.1 mmol/L (3.5-5.1); Sodium Level 128 mmol/L (136-145); Troponin-I HS 20 pg/mL (3.0-54.0)
--- NOTE | 2021-09-01 10:08 | RAD_ITS ---
STUDY: X-RAY CHEST REASON FOR EXAM: Female, 61 years old. sob TECHNIQUE: COMPARISON: None. FINDINGS: The lungs demonstrate minimal right lower lobe fibrosis stable. There is no demonstrated pleural abnormality. Status post sternotomy. Borderline cardiomegaly. Status post mitral valve replacement surgery. Normal visualized thoracic spine. Normal visualized ribs, clavicles, and shoulders. There is no demonstrated abnormality of the visualized soft tissue structures of the upper abdomen. RAD/Chest 1 View (Portable) IMPRESSION: Stable findings. Minimal right lower lobe fibrosis. Status post sternotomy. Borderline cardiomegaly. Status post post mitral valve replacement surgery. Electronically Signed: Francesco Gaona MD, RENU at 10:29 EDT ,
--- NOTE | 2021-09-01 11:37 | CT_ITS ---
STUDY: CTA CHEST REASON FOR EXAM: Female, 61 years old. SOB RADIATION DOSAGE (If Supplied By Facility): CTDIvol = ( 12.66 ) mGy, DLP = ( 590.91 ) mGycm TECHNIQUE: The examination was performed with the intravenous administration of IV 75mL [id number]-[id number]. Post-processing of the angiographic images was performed, with multiplanar reformation and 3D reconstruction. Individualized dose optimization techniques were used for this CT. COMPARISON: 10/03/2015 FINDINGS: Status post median sternotomy. Normal enhancement of the main pulmonary artery and right and left pulmonary arteries. Normal enhancement of the bilateral peripheral pulmonary arteries. There is no demonstrated pulmonary embolism. Normal thoracic aorta and visualized great vessels. There is no demonstrated aortic dissection. Normal heart and pericardium. Several small mediastinal lymph nodes which are likely reactive. Normal hilar regions. Normal visualized trachea and bronchi. The lungs are well expanded. Normal pulmonary parenchyma. Normal pleura. Normal chest wall structures. Normal osseous structures. Normal visualized upper abdomen. CT/CTA Chest W/WO Contrast IMPRESSION: Normal CTA chest examination, without a demonstrated pulmonary embolism or arterial dissection. Electronically Signed: Modesto Freed MD at 13:20 EDT ,
--- NOTE | 2021-09-01 12:39 | EX.ED.DYSGE1 ---
HPI History of Present Illness Chief Complaint: Cough Informant: patient Onset/Context/Timing Onset: Weeks Context: Gradual Onset Current Severity: Moderate Maximum Severity: Moderate Narrative Narrative: Patient present secondary to cough, congestion, weakness. She reports first developing symptoms about 4 weeks ago. Over the last couple days symptoms have worsened. She denies measured fever. She has had cough with occasional yellow sputum production. She states she saw her PCP earlier this week who was concerned about an abscess on the inside of her left thigh. That appears to be draining at this time. Patient's primary concern is that the symptoms are consistent with how she felt when she was diagnosed with endocarditis approximately 6 years ago. [facility] Medical History Allergic rhinitis Anxiety Asthma Bilateral pleural effusion Cancer Chronic diastolic (congestive) heart failure Congenital subaortic stenosis of membranous type COVID-19 COVID-19 virus detected (07/05/20) CPAP (continuous positive airway pressure) dependence Endometrial cancer Essential (primary) hypertension History of bacterial endocarditis HLD (hyperlipidemia) Hypertension Left bundle branch block Morbid obesity Narcolepsy Nonrheumatic aortic (valve) stenosis with insufficiency Nonrheumatic mitral valve insufficiency Obesity Obstructive sleep apnea On home oxygen therapy Positive GBS test Psoriasis Secondary pulmonary arterial hypertension Streptococcal septicemia Subvalvar aortic stenosis Wears dentures Wears glasses Home Medications aspirin 81 mg PO DAILY@199905/30/16 [History Last Taken 07/10/20] multivitamin with folic acid 1 tab PO DAILY 05/30/16 [History Last Taken 07/10/20] metformin 500 mg tablet 250 mg PO DAILY tab 08/16/19 [History Last Taken 07/10/20] Potassium Chloride [Klor-Con M20] 40 meq PO DAILY 05/21/20 [History Last Taken 07/10/20] loratadine 10 mg PO DAILY 05/21/20 [History Last Taken 07/10/20] melatonin 5 mg PO QHS 05/21/20 [History Last Taken 07/09/20] omeprazole 40 mg PO DAILY 05/21/20 [History Last Taken 02/04/21] albuterol sulfate 90 mcg/actuation aerosol inhaler 2 puff INHALATION Q4H PRN #8.5 gm 07/03/20 [Rx Last Taken Unknown] warfarin 7.5 mg tablet 7.5 mg PO DAILY #90 tab 10/17/20 [Rx Last Taken Unknown] acetaminophen 500 mg tablet 1,000 mg PO DAILY tab 11/08/20 [History Last Taken Unknown] cholecalciferol (vitamin D3) 1,250 mcg (50,000 unit) capsule 1,250 mcg PO QWEEK cap 11/08/20 [History Last Taken Unknown] duloxetine 60 mg capsule,delayed release 120 mg PO DAILY cap 11/08/20 [History Last Taken Unknown] warfarin 5 mg tablet 2.5 mg PO DAILY 11/22/20 [History Last Taken 01/31/21] torsemide 20 mg tablet 40 mg PO DAILY #180 tab 11/30/20 [Rx Last Taken Unknown] metoprolol tartrate 25 mg tablet 25 mg PO BID #180 tab 12/11/20 [Rx Last Taken 02/04/21] pravastatin 40 mg tablet 20 mg PO QHS #45 tab 01/02/21 [Rx Last Taken Unknown] diphenhydramine HCl [Benadryl] 25 mg PO QHS 01/30/21 [History Last Taken Unknown] guaifenesin 600 mg tablet, extended release 12 hr 600 mg PO Q12H PRN #14 tab 03/02/21 [Rx Last Taken Unknown] warfarin 5 mg tablet 5 mg PO .COMPLEX #90 tab 08/27/21 [Rx Last Taken Unknown] benzonatate 200 mg capsule 200 mg PO TID PRN #90 cap 08/30/21 [Rx Last Taken Unknown] doxycycline hyclate 150 mg tablet 100 mg PO BID tab 08/30/21 [History Last Taken Unknown] fluticasone propionate 50 mcg/actuation nasal spray,suspension 2 spray INTRANASAL QDAY #1 device 08/30/21 [Rx Last Taken Unknown] guaifenesin 1,200 mg tablet, extended release 12 hr 1,200 mg PO Q12H #60 tab 08/30/21 [Rx Last Taken Unknown] ipratropium 0.5 mg-albuterol 3 mg (2.5 mg base)/3 mL nebulization soln 3 ml INHALATION Q4H PRN PRN #180 ml 08/30/21 [Rx Last Taken Unknown] Allergy/AdvReac Type Severity Reaction Status Date / Time clarithromycin [From Biaxin] Allergy Severe SOB, hives Verified 09/01/21 08:48 and swelling cephalexin [Cephalexin] Allergy Rash Verified 09/01/21 08:48 simvastatin Allergy Rash Verified 09/01/21 08:48 sulfamethoxazole Allergy Rash Verified 09/01/21 08:48 trimethoprim Allergy Rash/leg Verified 09/01/21 08:48 swelling bupropion AdvReac Severe worsened Verified 09/01/21 08:48 depression ciprofloxacin AdvReac Itching Verified 09/01/21 08:48 Macrolide Antibiotics AdvReac Unknown Verified 09/01/21 08:48 Penicillins AdvReac Unknown Verified 09/01/21 08:48 adhesive tape Allergy Itching Uncoded 09/01/21 08:48 Family History Father CAD (coronary artery disease) Hypertension Mother , age 55 Sudden cardiac Hypertension Abdominal aortic aneurysm rupture Brother Hypertension Sister Hypertension Surgical History H/O bilateral salpingo-oophorectomy (01/2020) History of mechanical aortic valve replacement (05/13/16) History of mitral valve replacement with mechanical valve (05/13/16) History of robot-assisted laparoscopic hysterectomy (01/2020) History of tubal ligation HX venous access device placed Resection of subaortic membrane (2002) Social History household members: spouse number of children: 4 current occupational status: unemployed history of recent travel: No sexually active: Yes Smoking Status: Never smoker alcohol intake: never substance use type: does not use diet: low carbohydrate caffeine: No what type of physical activity do you participate in: walking seatbelt use: always do you feel safe at home: Yes additional social history: - Dylan [employer]IG[employer] [facility] ED Constitutional Constitutional ED: Denies chills or fever(s) Eyes Eyes: Denies blurry vision ENT ENT ED: Denies rhinorrhea or sore throat Cardiovascular Cardiovascular: Denies chest pain or palpitations Respiratory/Chest Respiratory/Chest: Reports cough, dyspnea and sputum Gastrointestinal Gastrointestinal: Denies abdominal pain, diarrhea, nausea or vomiting Genitourinary Genitourinary ED: Denies dysuria Integumentary Reports abscess Endocrine Endocrinology: Denies polydipsia or polyuria Allergic/Immunologic Allergic/Immunologic ED: Denies urticaria EXAM Physical Exam Const Vital Signs: 09/01/21 08:43 09/01/21 09:17 09/01/21 09:19 Temperature 98 F Temperature Source Temporal Pulse Rate 90 91 Respiratory Rate 20 H 22 H Respiratory Effort Short of Breath Blood Pressure 174/134 H 162/77 H Blood Pressure Mean 147 105 Pulse Ox 94 96 Oxygen Delivery Method Room Air Room Air Room Air 09/01/21 11:12 09/01/21 13:27 Temperature Temperature Source Pulse Rate 98 88 Respiratory Rate 16 18 Respiratory Effort Blood Pressure 154/83 H 163/84 H Blood Pressure Mean 106 110 Pulse Ox 92 94 Oxygen Delivery Method Room Air Room Air Positive well nourished and well developed General Appearance ED: well developed HEENT Reports moist mucous membranes Eyes PERRL and EOMs intact bilaterally Neck supple Chest Wall inspection of chest normal and palpation of chest normal Resp normal respiratory effort and clear to auscultation bilaterally Cardio regular rate and regular rhythm Rate: other Other Details: Audible valve click on auscultation. GI non-tender Auscultation: hypoactive bowel sounds Palpation: soft Extremity Extremity Narrative: Draining superficial cutaneous abscess to the medial portion of the left thigh. 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 EKG, chest x-ray, lab work obtained. Lab Data Attestation: I reviewed the patient's lab results. Labs: Laboratory Results - last 24 hr 09/01/21 09/01/21 09/01/21 09:30 09:30 09:30 WBC 8.3 RBC 4.76 Hgb 14.9 Hct 43.7 MCV 91.8 MCH 31.3 MCHC 34.1 RDW Std Deviation 45.7 H RDW Coeff of Ham 13.3 Plt Count 253 MPV 10.3 Immature Gran % (Auto) 0.500 Neut % (Auto) 69.9 Lymph % (Auto) 15.7 L [place] % (Auto) 13.4 H Eos % (Auto) 0.1 Baso % (Auto) 0.4 Absolute Neuts (auto) 5.8 Absolute Lymphs (auto) 1.31 Nucleated RBC % 0 PT 17.3 H INR 1.4 Sodium 128 L Potassium 3.1 L Chloride 91 L Carbon Dioxide 30.0 Anion Gap 7 BUN 17 Creatinine 1.04 H Estim Creat Clear Calc 56.64 Est GFR (MDRD) Af Amer 70 Est GFR (MDRD) Non-Af 58 L BUN/Creatinine Ratio 16.3 Glucose 137 H Calcium 8.6 Total Bilirubin 1.20 H Direct Bilirubin 0.34 H AST 29 ALT 24 Alkaline Phosphatase 49 Troponin I High Sens 20 B-Natriuretic Peptide Total Protein 9.0 H Albumin 3.8 Globulin 5.2 H 09/01/21 09:30 WBC RBC Hgb Hct MCV MCH MCHC RDW Std Deviation RDW Coeff of Ham Plt Count MPV Immature Gran % (Auto) Neut % (Auto) Lymph % (Auto) [place] % (Auto) Eos % (Auto) Baso % (Auto) Absolute Neuts (auto) Absolute Lymphs (auto) Nucleated RBC % PT INR Sodium Potassium Chloride Carbon Dioxide Anion Gap BUN Creatinine Estim Creat Clear Calc Est GFR (MDRD) Af Amer Est GFR (MDRD) Non-Af BUN/Creatinine Ratio Glucose Calcium Total Bilirubin Direct Bilirubin AST ALT Alkaline Phosphatase Troponin I High Sens B-Natriuretic Peptide 85.3 Total Protein Albumin Globulin Rapid COVID: Negative Influenza: Negative Radiography Chest X-Ray - ED: 1 View, Read by ED Physician and Chronic Changes Diagnostic Testing: Clinical Impression(s) from Imaging Studies Chest X-Ray 09/01/21 10:08 IMPRESSION: Stable findings. Minimal right lower lobe fibrosis. Status post sternotomy. Borderline cardiomegaly. Status post post mitral valve replacement surgery. Electronically Signed: Francesco Gaona MD, RENU at 10:29 EDT , Chest CTA 09/01/21 11:37 IMPRESSION: Normal CTA chest examination, without a demonstrated pulmonary embolism or arterial dissection. Electronically Signed: Modesto Freed MD at 13:20 EDT , EKG Initial EKG: Attestation: I personally reviewed and interpreted this EKG as follows: Interpretation: Atrial Fibrillation (A. fib at 89 with left bundle branch block. This is consistent with prior study. No acute ischemia.) Treatment and Re-Evaluation Narrative: Patient's lab work reveals normal white count at 8.3. No left shift. INR is subtherapeutic at 1.4. Chemistry studies reveal a sodium of level of 128, chloride 91, potassium 3.1. Troponin is normal at 20. BNP is 85. Chest x-ray per my interpretation reveals chronic changes only with no focal infiltrate. Radiologist interpretation is reviewed. Because the patient's INR is subtherapeutic she was sent for CTA of the chest. This is read as normal by radiology. On my review there appears to be a small peripheral infiltrate at the base of the right upper lobe. On repeat examination patient resting comfortably while lying in bed. With any exertion she gets very short of breath. She reports significant weakness. She was given IV fluids to help replace her sodium and oral potassium was given. At this time I will speak with hospitalist regarding observation for correction of electrolytes and strengthening. I will give her a dose of doxycycline. Patient does have multiple antibiotic allergies documented. Discharge Plan Triage Chief Complaint: Cough ED Provider: Pari Molina Dx/Rx/DC Orders Clinical Impression: Weakness, Dyspnea, Cutaneous abscess Prescriptions: No Action duloxetine [Cymbalta] 60 mg capsule,delayed release(DR/EC) 120 mg PO DAILY RF: 0 metformin 500 mg tablet 250 mg PO DAILY RF: 0 albuterol sulfate [Ventolin HFA] 90 mcg/actuation HFA aerosol inhaler 2 puff INHALATION Q4H PRN (Reason: shortness of breath or wheezing) Qty: 8.5 RF: 6 metoprolol tartrate 25 mg tablet 25 mg PO BID Qty: 180 RF: 3 acetaminophen [Tylenol Extra Strength] 500 mg tablet 1,000 mg PO DAILY RF: 0 guaifenesin [Mucinex] 600 mg tablet extended release 12hr 600 mg PO Q12H PRN (Reason: cough, congestion) Qty: 14 RF: 0 doxycycline hyclate 150 mg tablet 100 mg PO BID RF: 0 benzonatate 200 mg capsule 200 mg PO TID PRN (Reason: cough) Qty: 90 RF: 0 guaifenesin 1,200 mg tablet extended release 12hr 1,200 mg PO Q12H Qty: 60 RF: 6 fluticasone propionate [Flonase Allergy Relief] 50 mcg/actuation spray,suspension 2 spray INTRANASAL QDAY Qty: 1 RF: 3 ipratropium-albuterol 0.5 mg-3 mg(2.5 mg base)/3 mL solution for nebulization 3 ml inhalation Q4H PRN PRN (Reason: SOB &/OR WHEEZING) Qty: 180 RF: 6 aspirin 81 MG tablet,chewable 81 mg PO DAILY@1999 RF: 0 multivitamin with folic acid 1 TABLET tablet 1 tab PO DAILY RF: 0 omeprazole 40 MG capsule,delayed release(DR/EC) 40 mg PO DAILY RF: 0 melatonin 5 MG capsule 5 mg PO QHS RF: 0 Potassium Chloride [Klor-Con M20] 20 MEQ Tab.Er.Prt 40 meq PO DAILY RF: 0 loratadine 10 MG tablet 10 mg PO DAILY RF: 0 cholecalciferol (vitamin D3) 1,250 mcg (50,000 unit) capsule 1,250 mcg PO QWEEK RF: 0 diphenhydramine HCl [Benadryl] 25 MG capsule 25 mg PO QHS RF: 0 warfarin 7.5 mg tablet 7.5 mg PO DAILY Qty: 90 RF: 3 warfarin 5 mg tablet 2.5 mg PO DAILY RF: 0 torsemide 20 mg tablet 40 mg PO DAILY Qty: 180 RF: 3 pravastatin 40 mg tablet 20 mg PO QHS Qty: 45 RF: 3 warfarin 5 mg tablet 5 mg PO .COMPLEX Qty: 90 RF: 4 Primary Care Provider: Marta Luna Referrals: Marta Luna, [facility]NA[facility] [Primary Care Provider] - Disposition Disposition: Acute Care Hospital [facility]
[2021-09-01] MEDS: Potassium Chloride Oral Tablet 20 MEQ 40 MEQ PO (12:58)
[2021-09-01] MEDS: 0.9% Normal Saline 1,000 ML 150 ML IV (14:11)
[2021-09-01] MEDS: Acetaminophen 500 MG Tablet 1000 MG PO (14:11)
--- NOTE | 2021-09-01 14:13 | NURSING ---
DR MOYER FOR DR RIZO
--- NOTE | 2021-09-01 14:20 | NURSING ---
MED SURG OBS JOÃO DYSPNEA, HYPONATREMIA, HYPOKALEMIA
--- NOTE | 2021-09-01 14:28 | HP.PCM.HOS_ITS ---
HPI - General HPI Narrative CHELSEA MCKEON, is a 61 F who presented to the emergency department [facility] on 09/01/2021 with worsening shortness of breath. She states she has had associated symptoms of cough, congestion, weakness, nausea, and decreased appetite and fatigue. She states she started having symptoms over 4 weeks ago but over the last couple of days her symptoms had worsened. She feels she worsened approximately on Thursday at which time she saw pulmonary medicine. They did a NIOX procedure at the office on that day and it was within normal limits which led them not to place her on any corticosteroids. She was discharged with Tessalon Perles, guaifenesin, Flonase, and duo nebs via nebulizer. She states that she really has not improved since that point in time. She was also noted to have a supratherapeutic INR at 4.6 and her dose was reduced to 5 mg daily. She also reports that she has developed an abscess on the medial aspect of her inner thigh. She states that it started draining last evening and they placed sterile honey on it. It has continued to drain bloody purulent fluid. She states it is tender and developed earlier this week as well. She does have a history of endocarditis and feels that her symptoms are similar to what she had when she was diagnosed with that 6 years ago. She has a history of open heart surgery with mechanical aortic and mitral valve placement. INR goal therefore will be 2.5-3.5 however on presentation it was low. Vital signs on presentation the emergency department show temperature 97.6, pulse of 74, blood pressure 116/76, respiratory rate anywhere from 16-22 and an oxygen saturation of 91% on room air. Her oxygen saturation did fluctuate an ywhere from 91 to 96% but she was able to remain on room air during her hospital course. She was not tested with ambulation. She does not wear oxygen [id number] at home however she does wear oxygen with a 2 L bleed into her CPAP nocturnally. Her CBC is unremarkable. Her differential shows a monocytosis but no dyspnea failure. Her INR was 1.4. Her chemistry panel showed hyponatremia with a sodium of 128, hypokalemia with a potassium of 3.1, hypochloremia with a chloride of 91 and a mildly elevated serum creatinine from baseline at 1.04. Her glucose was 137. Her bilirubin was mildly elevated compared to baseline at 1.2 but her LFTs were normal. A BNP was obtained given her shortness of breath and was 85.3 which appears to be around where she runs at baseline. Her troponin was 20. Her chest x-ray was unremarkable. CTA of her chest was unremarkable as well. In the emergency department she was treated with Tylenol x1 dose, doxycycline, therapeutic Lovenox 120 mg x 1 and was given potassium chloride 40 mill equivalents x1 dose. [facility] Medical History Allergic rhinitis Anxiety Asthma Bilateral pleural effusion Cancer Chronic diastolic (congestive) heart failure Congenital subaortic stenosis of membranous type COVID-19 COVID-19 virus detected (07/05/20) CPAP (continuous positive airway pressure) dependence Endometrial cancer Essential (primary) hypertension History of bacterial endocarditis HLD (hyperlipidemia) Hypertension Left bundle branch block Morbid obesity Narcolepsy Nonrheumatic aortic (valve) stenosis with insufficiency Nonrheumatic mitral valve insufficiency Obesity Obstructive sleep apnea On home oxygen therapy Positive GBS test Psoriasis Secondary pulmonary arterial hypertension Streptococcal septicemia Subvalvar aortic stenosis Wears dentures Wears glasses Home Medications aspirin 81 mg PO DAILY@199905/30/16 [History Last Taken 07/10/20] multivitamin with folic acid 1 tab PO DAILY 05/30/16 [History Last Taken 07/10/20] metformin 500 mg tablet 250 mg PO DAILY tab 08/16/19 [History Last Taken 07/10/20] Potassium Chloride [Klor-Con M20] 40 meq PO DAILY 05/21/20 [History Last Taken 07/10/20] loratadine 10 mg PO DAILY 05/21/20 [History Last Taken 07/10/20] melatonin 5 mg PO QHS 05/21/20 [History Last Taken 07/09/20] omeprazole 40 mg PO DAILY 05/21/20 [History Last Taken 02/04/21] albuterol sulfate 90 mcg/actuation aerosol inhaler 2 puff INHALATION Q4H PRN #8.5 gm 07/03/20 [Rx Last Taken Unknown] warfarin 7.5 mg tablet 7.5 mg PO DAILY #90 tab 10/17/20 [Rx Last Taken Unknown] acetaminophen 500 mg tablet 1,000 mg PO DAILY tab 11/08/20 [History Last Taken Unknown] cholecalciferol (vitamin D3) 1,250 mcg (50,000 unit) capsule 1,250 mcg PO QWEEK cap 11/08/20 [History Last Taken Unknown] duloxetine 60 mg capsule,delayed release 120 mg PO DAILY cap 11/08/20 [History Last Taken Unknown] warfarin 5 mg tablet 2.5 mg PO DAILY 11/22/20 [History Last Taken 01/31/21] torsemide 20 mg tablet 40 mg PO DAILY #180 tab 11/30/20 [Rx Last Taken Unknown] metoprolol tartrate 25 mg tablet 25 mg PO BID #180 tab 12/11/20 [Rx Last Taken 02/04/21] pravastatin 40 mg tablet 20 mg PO QHS #45 tab 01/02/21 [Rx Last Taken Unknown] diphenhydramine HCl [Benadryl] 25 mg PO QHS 01/30/21 [History Last Taken Unknown] guaifenesin 600 mg tablet, extended release 12 hr 600 mg PO Q12H PRN #14 tab 03/02/21 [Rx Last Taken Unknown] warfarin 5 mg tablet 5 mg PO .COMPLEX #90 tab 08/27/21 [Rx Last Taken Unknown] benzonatate 200 mg capsule 200 mg PO TID PRN #90 cap 08/30/21 [Rx Last Taken Unknown] doxycycline hyclate 150 mg tablet 100 mg PO BID tab 08/30/21 [History Last Taken Unknown] fluticasone propionate 50 mcg/actuation nasal spray,suspension 2 spray INTRANASAL QDAY #1 device 08/30/21 [Rx Last Taken Unknown] guaifenesin 1,200 mg tablet, extended release 12 hr 1,200 mg PO Q12H #60 tab 08/30/21 [Rx Last Taken Unknown] ipratropium 0.5 mg-albuterol 3 mg (2.5 mg base)/3 mL nebulization soln 3 ml INHA LATION Q4H PRN PRN #180 ml 08/30/21 [Rx Last Taken Unknown] Allergy/AdvReac Type Severity Reaction Status Date / Time clarithromycin [From Biaxin] Allergy Severe SOB, hives Verified 09/01/21 08:48 and swelling cephalexin [Cephalexin] Allergy Rash Verified 09/01/21 08:48 simvastatin Allergy Rash Verified 09/01/21 08:48 sulfamethoxazole Allergy Rash Verified 09/01/21 08:48 trimethoprim Allergy Rash/leg Verified 09/01/21 08:48 swelling bupropion AdvReac Severe worsened Verified 09/01/21 08:48 depression ciprofloxacin AdvReac Itching Verified 09/01/21 08:48 Macrolide Antibiotics AdvReac Unknown Verified 09/01/21 08:48 Penicillins AdvReac Unknown Verified 09/01/21 08:48 adhesive tape Allergy Itching Uncoded 09/01/21 08:48 Family History Father CAD (coronary artery disease) Hypertension Mother , age 55 Sudden cardiac Hypertension Abdominal aortic aneurysm rupture Brother Hypertension Sister Hypertension Surgical History H/O bilateral salpingo-oophorectomy (01/2020) History of mechanical aortic valve replacement (05/13/16) History of mitral valve replacement with mechanical valve (05/13/16) History of robot-assisted laparoscopic hysterectomy (01/2020) History of tubal ligation HX venous access device placed Resection of subaortic membrane (2002) Social History household members: spouse number of children: 4 current occupational status: unemployed history of recent travel: No sexually active: Yes Smoking Status: Never smoker alcohol intake: never substance use type: does not use diet: low carbohydrate caffeine: No what type of physical activity do you participate in: walking seatbelt use: always do you feel safe at home: Yes additional social history: - Dylan DAIGLE Constitutional Constitutional: Reports malaise and weakness; Denies anorexia, change in weight, chills, fatigue, fever(s), night sweats or other Eyes Eyes: Denies blurry vision, change in eye color, change in vision, discharge from eye(s), double vision, erythema, eye pain, loss of vision or other ENT HEENT: Denies abnormal hearing, dysphagia, ear pain, epistaxis, headache(s), hearing loss, nasal congestion, nasal discharge, post nasal drip, sinus pressure , sore throat or other Cardiovascular Cardiovascular: Reports dyspnea on exertion; Denies chest pain, claudication, edema, lightheadedness, orthopnea, palpitations, paroxysmal nocturnal dyspnea, rapid heart rate, syncope or other Respiratory/Chest Respiratory/Chest: Reports cough, dyspnea, shortness of breath at rest and shortness of breath with exertion; Denies excessive phlegm production, hemoptysis, productive cough, wheezing or other Gastrointestinal Gastrointestinal: Reports nausea and other Details: Decreased appetite ; Denies abdominal pain, coffee ground emesis, constipation, diarrhea, dyspepsia, hematemesis, hematochezia, loose stools, melena or vomiting Genitourinary Genitourinary: Denies burning urination, difficulty urinating, dysuria, hematuria, nocturia, urinary frequency, urinary hesitancy, urinary incontinence, urinary urgency or other Musculoskeletal Musculoskeletal: Denies arthralgias, back pain, joint pain, joint stiffness, joint swelling, myalgias, neck pain or other Neurologic Neurologic: Denies abnormal gait, abnormal speech, confusion, disequilibrium, dizziness, focal weakness, headache(s), numbness, paresthesias, seizure-like activity, seizures, syncope, tingling, tremor(s) or other Psychiatric Psychiatric: Reports anxiety and depression Endocrine Endocrinology: Denies change in body appearance, cold intolerance, excessive sweating, heat intolerance, polydipsia, polyuria or other Hematologic/Lymphatic Hematologic/Lymphatic: Denies anemia, easy bleeding, easy bruising, lymphadenopathy or other Allergic/Immunologic Allergic/Immunologic: Denies rhinitis, hives, eczemia, asthma or other Vital Signs Vital Signs Vital Signs: 09/01/21 08:43 09/01/21 09:17 09/01/21 09:19 Temperature 98 F Temperature Source Temporal Pulse Rate 90 91 Respiratory Rate 20 H 22 H Respiratory Effort Short of Breath Blood Pressure 174/134 H 162/77 H Blood Pressure Mean 147 105 Pulse Ox 94 96 Oxygen Delivery Method Room Air Room Air Room Air 09/01/21 11:12 09/01/21 13:27 09/01/21 14:12 Temperature 99.1 F Temperature Source Temporal Pulse Rate 98 88 88 Respiratory Rate 16 18 25 H Respiratory Effort Blood Pressure 154/83 H 163/84 H 140/82 H Blood Pressure Mean 106 110 101 Pulse Ox 92 94 94 Oxygen Delivery Method Room Air Room Air Room Air Weight Weight: 113.398 kg Body Mass Index (BMI) 39.1 Physical Exam Const alert and oriented x3 Constitutional Narrative: Morbidly obese white female sitting up in a chair at the bedside the emergency department, nursing at bedside, patient coughs intermittently and has some dyspnea with conversation however no extremis General Appearance: cooperative HEENT normocephalic, head/scalp atraumatic, hearing grossly normal bilaterally and moist oral mucous membranes HEENT Narrative: Mallampati 3-4, no thrush, tongue appears dry but not parched Eyes PERRL, EOMs intact bilaterally and conjunctivae normal Eyes Narrative: No scleral icterus Neck no lymphadenopathy, supple and no JVD Resp normal respiratory effort, no retractions, no use of accessory muscles and clear to auscultation bilaterally Resp Narrative: Diminished with few scattered wheezes, no rhonchi or rales Auscultation: wheezes; Negative for crackles, rales or rhonchi Cardio regular rate, S1 normal heart sound, S2 normal heart sound, no rub, no gallops and no JVD; Negative for regular rhythm, no murmurs or no clicks Cardio Narrative: Irregular irregular rhythm but rate controlled, 2 out of 6 systolic murmur, positive click GI normal to inspection, nondistended, normoactive bowel sounds, soft to palpation, non-tender and non-distended GI Narrative: Obese protuberant abdomen Extremity no clubbing, cyanosis or edema Peripheral Pulses: Yes pulses 2+ throughout Skin skin turgor normal, no jaundice, no petechiae and no mottling Skin Narrative: Patient with what appears to be a boil on her medial thigh left proximal thigh about the size of a silver dollar draining sanguinous purulent fluid, no significant induration but tender and erythematous Neuro oriented x3, CN's II-XII intact bilaterally, moves all extremities and no focal motor deficits Sensorium / Orientation: awake, alert, oriented to person, oriented to place and oriented to time Speech: speech normal Motor Exam: strength 5/5 throughout Psych Mood & Affect: anxious Results Lab / Micro Data Attestation: I reviewed the patient's lab results. Result Diagrams: 09/01/21 09:30 09/01/21 09:30 Labs: Laboratory Results - last 24 hr 09/01/21 09:30: WBC 8.3, RBC 4.76, Hgb 14.9, Hct 43.7, MCV 91.8, MCH 31.3, MCHC 34.1, RDW Std Deviation 45.7 H, RDW Coeff of Ham 13.3, Plt Count 253, MPV 10.3, Immature Gran % (Auto) 0.500, Neut % (Auto) 69.9, Lymph % (Auto) 15.7 L, [place] % (Auto) 13.4 H, Eos % (Auto) 0.1, Baso % (Auto) 0.4, Absolute Neuts (auto) 5.8, Absolute Lymphs (auto) 1.31, Nucleated RBC % 0 09/01/21 09:30: PT 17.3 H, INR 1.4 09/01/21 09:30: Sodium 128 L, Potassium 3.1 L, Chloride 91 L, Carbon Dioxide 30.0, Anion Gap 7, BUN 17, Creatinine 1.04 H, Estim Creat Clear Calc 56.64, Est GFR (MDRD) Af Amer 70, Est GFR (MDRD) Non-Af 58 L, BUN/Creatinine Ratio 16.3, Glucose 137 H, Calcium 8.6, Total Bilirubin 1.20 H, Direct Bilirubin 0.34 H, AST 29, ALT 24, Alkaline Phosphatase 49, Troponin I High Sens 20, Total Protein 9.0 H, Albumin 3.8, Globulin 5.2 H 09/01/21 09:30: B-Natriuretic Peptide 85.3 Micro: Microbiology 09/01/21 09:30 Nasal Secretion SARS-CoV-2 & FLU Antigen (Rapid) - Final Radiology Impression Chest X-Ray 09/01/21 10:08 IMPRESSION: Stable findings. Minimal right lower lobe fibrosis. Status post sternotomy. Borderline cardiomegaly. Status post post mitral valve replacement surgery. Electronically Signed: Francesco Gaona MD, RENU at 10:29 EDT , Chest CTA 09/01/21 11:37 IMPRESSION: Normal CTA chest examination, without a demonstrated pulmonary embolism or arterial dissection. Electronically Signed: Modesto Freed MD at 13:20 EDT , Assessment & Plan Assessment/Plan (1) Dyspnea: (2) Cutaneous abscess: (3) Weakness: (4) Subtherapeutic international normalized ratio (INR): (5) Hyponatremia: (6) Hypokalemia: (7) Dehydration: PLAN: Dyspnea -Patient has no hypoxia -Complains of cough and dyspnea at rest and with exertion -Troponin is normal -EKG is unremarkable other than chronic atrial fibrillation -BNP is normal -Had COVID earlier this year and it sounds like dyspnea and cough has been problematic since that time -Multiple antibiotic allergies -Was placed on doxycycline as an outpatient--> we will continue IV here -Pulmonary toilet with DuoNebs and as needed albuterol -No steroids at this time -Hold diuretics -I-S/Pep therapy -Mucinex -Most recent echocardiogram 12/27/2020 with an EF of 63%, pulmonary artery systolic pressure of 36 mmHg with a stable appearing mechanical aortic valve -Consult pulmonary medicine--> patient was seen as an outpatient on Thursday Left thigh abscess -Appears to be draining some -Cultures and MRSA swab pending -Continue doxycycline and add clindamycin -Antimicrobial therapy is very difficult as patient has multiple allergies -Follow cultures and taper antibiotics as able--> may need ID consult depending on sensitivities -Follow clinically and if not improved may need further I&D but currently draining purulent fluid -Blood cultures obtained and pending -Wound care consult Hyponatremia/hyperchloremia -Patient appears dehydrated -In addition to IV fluids given the emergency department we will give 1 L normal saline -Repeat lab in a.m. Hypokalemia -P.o. potassium replacement with 60 mill equivalents -Repeat in a.m. -Check a.m. mag Subtherapeutic INR -Patient with mechanical mitral and aortic valves -Goal INR will be 2.5-3.5 -Patient indicates she was on 7.5 mg of Coumadin 5 times a week and 2.5 mg 2 times a week -Dose reduced to 5 mg on 08/27/2021 and INR is now 1.4 -Patient states she has been compliant with medication and only held her Thursday dose -Given the fact the patient has a mechanical mitral valve we will start Lovenox and reinitiate Coumadin at 7.5 mg daily to start this evening Generalized weakness -Therapy as above -PT/OT consultation Asthma -No significant remarkable findings on CTA of the chest -Patient follows with pulmonary as an outpatient -Continue bronchodilators -No current need for steroids -I-S and Pep therapy as above ROYA -Patient is on CPAP at night -Patient will bring in her home unit -2 L bleed in addition to CPAP nocturnally History of endocarditis status post aortic and mitral valve replacement -Occurred in 2015 -Surgical intervention was at [facility] -Follows with cardiology as an outpatient -Last echo in December 2020 was stable see above for details -INR subtherapeutic-see above Atrial fibrillation -Anticoagulation as above -Continue metoprolol -Hold home torsemide Hyperlipidemia And continue pravastatin GERD -Continue PPI Depression -Continue duloxetine Morbid obesity -Recommend weight loss -Complicates treatment, prognosis, outcomes DVT prophylaxis -Full dose Lovenox while uptitrating Coumadin CODE STATUS -Full code as per discussion with the patient in the emergency department at admission Charges/Coding Visit Charges Inpatient E&M: 19865 Init Hosp L3
[2021-09-01] MEDS: Enoxaparin 120 MG/0.8 ML Syringe SC ×2 (14:41→21:41)
[2021-09-01] MEDS: 0.9% Normal Saline 1,000 ML 75 ML IV (16:31)
[2021-09-01] MEDS: Clindamycin 600 MG/50 ML BAG 100 MG IV ×2 (16:34→21:35)
[2021-09-01 16:36] LABS: Bedside Glucose 145 mg/dL (74-106)
[2021-09-01 17:08] LABS: M R Staph aureus DNA By PCR Negative (Negative); Probe Check PASS; Specimen Processing Control PASS; Staph aureus DNA By PCR POSITIVE (Negative)
[2021-09-01 17:33] LABS: Troponin-I HS 21 pg/mL (3.0-54.0)
[2021-09-01] MEDS: Ipratropium/Albuterol Sulfate 3 ML AMPUL.NEB INHALATION (19:18)
[2021-09-01] MEDS: Aspirin 81 MG TAB.CHEW PO (20:17)
[2021-09-01] MEDS: Acetaminophen 325 MG Tablet 650 MG PO (20:17)
[2021-09-01 21:40] LABS: Troponin-I HS 17 pg/mL (3.0-54.0)
[2021-09-01] MEDS: guaiFENesin 1,200 MG Tablet 1200 MG PO (21:40)
[2021-09-01] MEDS: MELATONIN 10 MG TABLET 5 MG PO (21:40)
[2021-09-01] MEDS: Pravastatin 20 MG Tablet PO (21:40)
[2021-09-01] MEDS: Metoprolol Tartrate 25 MG Tablet PO (21:40)
[2021-09-01] MEDS: DiphenhydrAMINE 25 MG Capsule PO (21:40)
[2021-09-01 22:01] LABS: Bedside Glucose 115 mg/dL (74-106)
[2021-09-02] VITALS (7 sets, daily range): BP systolic 109–134; BP diastolic 56–65; PULSE 61–88; RESP 18–22; TEMP 36.6–36.7; O2SAT 90–100
[2021-09-02] MEDS: Ipratropium/Albuterol Sulfate 3 ML AMPUL.NEB INHALATION ×2 (01:02→07:26)
[2021-09-02] MEDS: Benzonatate 100 MG Capsule 200 MG PO (05:52)
[2021-09-02] MEDS: Clindamycin 600 MG/50 ML BAG 100 MG IV (05:52)
[2021-09-02 06:16] LABS: Absolute Lymphocyte Count 1.96 X10^3/uL (0.83-4.51); Absolute Neutrophil Count 2.4 X10^3/uL (2.0-7.7); Basophil# 0.03 X10^3/uL; Basophil% 0.5 % (0-1); Eosinophil# 0.07 X10^3/uL; Eosinophils% 1.3 % (0-5); Hemoglobin 12.9 g/dL (12.0-15.0); Lymphocyte # 1.96 X10^3/ul (0.83-4.51); Lymphocyte % 35.4 % (19-41); Mean Corp Hgb Conc 33.1 g/dL (32-36); Mean Corpuscular Hgb 31.2 pg (27.0-32.0); Mean Corpuscular Volume 94.2 fL (81-99); Mean Platelet Vol. 10.5 fl (6.2-12.0); Monocyte# 1.03 X10^3/uL; Monocyte% 18.6 % (0-10); NRBC Flagged by Analyzer 0 % (0-5); Neutrophil # 2.42 X10^3/uL (2.7-7.7); Neutrophil % 43.8 % (47-70); Platelet Count 204 K/mm3 (150-450); RBC Distribution Width CV 13.6 % (11.6-14.6); RBC Distribution Width SD 46.5 fl (35.1-43.9); Red Blood Count 4.14 M/mm3 (4.2-5.4); White Blood Count 5.5 K/mm3 (4.4-11.0)
[2021-09-02 06:25] LABS: International Normalized Ratio 1.7; Prothrombin Time (Protime)PT. 19.5 SECONDS (11.7-14.9)
[2021-09-02 06:37] LABS: ALB/GLOB Ratio 0.7 RATIO (0.9-2.4); AST(SGOT) 25 U/L (15-37); Alanine Aminotransfer ALT/SGPT 19 U/L (13-56); Albumin, Serum 2.9 g/dL (3.2-5.0); Alkaline Phosphatase 38 U/L (45-117); Anion Gap 6 (5-15); BUN 15 mg/dL (7-18); BUN/Creat Ratio 21.2 RATIO (10-20); Chloride 98 mmol/L (98-107); Creatinine, Serum 0.71 mg/dL (0.55-1.02); EST Glomerular Filtration Rate 90 mL/min (>60); Est Glom Filt Rate - Afr Amer 109 mL/min (>60); Estimated Creatinine Clearance 82.96 ml/min; Globulin 4.3 g/dL (2.2-4.2); Glucose 118 mg/dL (74-106); Magnesium 1.9 mg/dL (1.6-2.6); Phosphorus 3.5 mg/dL (2.5-4.9); Potassium 3.1 mmol/L (3.5-5.1); Protein, Total 7.2 g/dL (6.4-8.2); Sodium Level 134 mmol/L (136-145)
[2021-09-02 06:40] LABS: Bedside Glucose 124 mg/dL (74-106)
--- NOTE | 2021-09-02 07:31 | CPS ---
2L bled in with CPAP HS
--- NOTE | 2021-09-02 07:38 | CON.PCM.CC_ITS ---
Assessment & Plan Assessment/Plan (1) SOB (shortness of breath): PLAN: RECOMMENDATIONS: 1. Continue scheduled bronchodilators. 2. Encourage incentive spirometer use and mobilize patient as tolerated. 3. At discharge, initiate combination ICS/LABA, as noted below. 4. Start Singulair as ordered. 5. Perform walking oximetry study prior to consideration for discharge home. 6. Complete repeat PFTs on outpatient basis, as previously scheduled. IMPRESSIONS: 1. Shortness of breath The patient has noted increasing shortness of breath since she was diagnosed with COVID-19 in April. In addition, in the last week, she has noted increasing symptoms along with increased rescue inhaler utilization, likely secondary to the viral upper respiratory infection, as the patient was exposed to a sick grandchild. Although the patient has not been on any form of a maintenance inhaler for her underlying asthma for quite some time, as she has been quite asymptomatic, given her recent increase in symptoms, she would likely benefit from being on a combination maintenance inhaler, as I do suspect that seasonal allergies are also likely contributing to her current symptoms. For now, it is reasonable to continue scheduled DuoNebs. At discharge, she would likely benefit from the initiation of a combination LABA/ICS, such as Symbicort, Dulera, Breo or Advair. In addition, I am going to place her on daily Singulair as well. The patient was advised to complete her follow-up PFTs next month as scheduled. The patient will need to be scheduled for a follow-up office visit with our nurse practitioner in 2 weeks. Perform walking oximetry study prior to consideration for discharge home. 2. Obstructive sleep apnea Continue nocturnal CPAP therapy per home regimen. 3. Subtherapeutic INR/paroxysmal atrial fibrillation/obesity/hyperlipidemia Complicates care, management, recovery and prognosis. Continue Lovenox with Coumadin bridge until INR therapeutic. This note was generated with [employer] dictation software. It may contain incorrect words, spelling, and punctuation that were not noted in checking the note before signing. HPI Consult Data Date of Consult: 09/02/21 HPI Narrative Reason for Consultation: Shortness of breath HPI Narrative: The patient is a 61-year-old female, with a history as outlined below, who presented to the emergency department on September 01 with shortness of breath, cough and congestion. The patient is currently followed in the pulmonary medicine clinic and was last seen by her nurse practitioner on August 30. The patient has a known history of asthma, restrictive ventilatory impairment and obstructive sleep apnea. A multitude of years ago, the patient was on a maintenance inhaler regimen, but later became so asymptomatic that the medication was discontinued. For quite some time she has only been utilizing albuterol as needed. She does not have a baseline daytime oxygen requirement, but does utilize 2 L/min of oxygen with her CPAP therapy on a nightly basis. The patient reported that after tera COVID in April she has noted increasing shortness of breath. In addition, approximately 1 week ago, she was exposed to her sick grandson and then begin utilizing her rescue inhaler with increasing frequency. Over the course of the last week, she was reliant on her albuterol rescue inhaler 3-4 times per day for symptom relief. She does endorse the presence of seasonal allergic rhinitis with nasal congestion, rhinorrhea and postnasal drip. She is currently utilizing Flonase and Claritin. On presentation to the emergency department, the patient was noted to be af ebrile and hemodynamically stable. Initial laboratory evaluation revealed no evidence of a leukocytosis. Rapid COVID and influenza were negative. CTA chest showed no evidence for pulmonary embolism or focal consolidation/infiltrate. The patient was identified as having a lower extremity abscess, for which she was started on antimicrobials. She is currently receiving scheduled DuoNebs every 6 hours. [facility] [place] Medical History Allergic rhinitis Anxiety Asthma Bilateral pleural effusion Cancer Chronic diastolic (congestive) heart failure Congenital subaortic stenosis of membranous type COVID-19 COVID-19 virus detected (07/05/20) CPAP (continuous positive airway pressure) dependence Endometrial cancer Essential (primary) hypertension History of bacterial endocarditis HLD (hyperlipidemia) Hypertension Left bundle branch block Morbid obesity Narcolepsy Nonrheumatic aortic (valve) stenosis with insufficiency Nonrheumatic mitral valve insufficiency Obesity Obstructive sleep apnea On home oxygen therapy Positive GBS test Psoriasis Secondary pulmonary arterial hypertension Streptococcal septicemia Subvalvar aortic stenosis Wears dentures Wears glasses Home Medications aspirin 81 mg PO DAILY@199905/30/16 [History Last Taken 07/10/20] multivitamin with folic acid 1 tab PO DAILY 05/30/16 [History Last Taken 07/10/20] metformin 500 mg tablet 250 mg PO DAILY tab 08/16/19 [History Last Taken 07/10/20] Potassium Chloride [Klor-Con M20] 40 meq PO DAILY 05/21/20 [History Last Taken 07/10/20] loratadine 10 mg PO DAILY 05/21/20 [History Last Taken 07/10/20] melatonin 5 mg PO QHS 05/21/20 [History Last Taken 07/09/20] omeprazole 40 mg PO DAILY 05/21/20 [History Last Taken 02/04/21] albuterol sulfate 90 mcg/actuation aerosol inhaler 2 puff INHALATION Q4H PRN #8.5 gm 07/03/20 [Rx Last Taken Unknown] warfarin 7.5 mg tablet 7.5 mg PO DAILY #90 tab 10/17/20 [Rx Last Taken Unknown] acetaminophen 500 mg tablet 1,000 mg PO DAILY tab 11/08/20 [History Last Taken Unknown] cholecalciferol (vitamin D3) 1,250 mcg (50,000 unit) capsule 1,250 mcg PO QWEEK cap 11/08/20 [History Last Taken 08/26/21] duloxetine 60 mg capsule,delayed release 120 mg PO DAILY cap 11/08/20 [History Last Taken 09/01/21 10:00] warfarin 5 mg tablet 2.5 mg PO DAILY 11/22/20 [History Last Taken 01/31/21] torsemide 20 mg tablet 40 mg PO DAILY #180 tab 11/30/20 [Rx Last Taken Unknown] metoprolol tartrate 25 mg tablet 25 mg PO BID #180 tab 12/11/20 [Rx Last Taken 02/04/21] pravastatin 40 mg tablet 20 mg PO QHS #45 tab 01/02/21 [Rx Last Taken Unknown] diphenhydramine HCl [Benadryl] 25 mg PO QHS 01/30/21 [History Last Taken Unknown] guaifenesin 600 mg tablet, extended release 12 hr 600 mg PO Q12H PRN #14 tab 03/02/21 [Rx Last Taken Unknown] warfarin 5 mg tablet 5 mg PO .COMPLEX #90 tab 08/27/21 [Rx Last Taken Unknown] benzonatate 200 mg capsule 200 mg PO TID PRN #90 cap 08/30/21 [Rx Last Taken Unknown] doxycycline hyclate 150 mg tablet 100 mg PO BID tab 08/30/21 [History Last Taken 08/31/21 20:00] fluticasone propionate 50 mcg/actuation nasal spray,suspension 2 spray INTRANASAL QDAY #1 device 08/30/21 [Rx Last Taken Unknown] guaifenesin 1,200 mg tablet, extended release 12 hr 1,200 mg PO Q12H #60 tab 08/30/21 [Rx Last Taken Unknown] ipratropium 0.5 mg-albuterol 3 mg (2.5 mg base)/3 mL nebulization soln 3 ml INHALATION Q4H PRN PRN #180 ml 08/30/21 [Rx Last Taken Unknown] Allergy/AdvReac Type Severity Reaction Status Date / Time clarithromycin [From Biaxin] Allergy Severe SOB, hives Verified 09/01/21 08:48 and swelling cephalexin [Cephalexin] Allergy Rash Verified 09/01/21 08:48 simvastatin Allergy Rash Verified 09/01/21 08:48 sulfamethoxazole Allergy Rash Verified 09/01/21 08:48 trimethoprim Allergy Rash/leg Verified 09/01/21 08:48 swelling bupropion AdvReac Severe worsened Verified 09/01/21 08:48 depression ciprofloxacin AdvReac Itching Verified 09/01/21 08:48 Macrolide Antibiotics AdvReac Unknown Verified 09/01/21 08:48 Penicillins AdvReac Unknown Verified 09/01/21 08:48 adhesive tape Allergy Itching Uncoded 09/01/21 08:48 Family History Father CAD (coronary artery disease) Hypertension Mother , age 55 Sudden cardiac Hypertension Abdominal aortic aneurysm rupture Brother Hypertension Sister Hypertension Surgical History H/O bilateral salpingo-oophorectomy (01/2020) History of mechanical aortic valve replacement (05/13/16) History of mitral valve replacement with mechanical valve (05/13/16) History of robot-assisted laparoscopic hysterectomy (01/2020) History of tubal ligation HX venous access device placed Resection of subaortic membrane (2002) Social History household members: spouse number of children: 4 current occupational status: unemployed history of recent travel: No sexually active: Yes Smoking Status: Never smoker alcohol intake: never substance use type: does not use diet: low carbohydrate caffeine: No what type of physical activity do you participate in: walking seatbelt use: always do you feel safe at home: Yes additional social history: - Dylan DAIGLE Constitutional Constitutional: Reports chills, fatigue and night sweats Eyes Eyes: Denies blurry vision or change in vision ENT HEENT: Reports nasal congestion and nasal discharge; Denies dizziness, dysphagia or epistaxis Cardiovascular Cardiovascular: Reports dyspnea; Denies chest pain or dizziness Respiratory/Chest Respiratory/Chest: Reports dyspnea and wheezing Gastrointestinal Gastrointestinal: Denies abdominal pain, diarrhea, nausea or vomiting Genitourinary Genitourinary: Denies difficulty urinating Musculoskeletal Musculoskeletal: Denies arthralgias, back pain or joint pain Integumentary Integumentary: Reports skin ulcer Neurologic Neurologic: Denies abnormal gait or abnormal speech Psychiatric Psychiatric: Denies anxiety or depression Endocrine Endocrinology: Reports fatigue Hematologic/Lymphatic Hematologic/Lymphatic: Denies easy bleeding or easy bruising Physical Exam Const alert, oriented x3 and no apparent distress General Appearance: cooperative Nutritional Appearance: obese HEENT normocephalic, head/scalp atraumatic and moist oral mucous membranes Eyes PERRL, EOMs intact bilaterally and conjunctivae normal Neck supple General: trachea midline Chest inspection of chest normal Resp normal respiratory effort Resp Narrative: Faint end expiratory wheeze Cardio regular rate and regular rhythm Cardio Narrative: + Click Heart Sounds: murmur GI normal to inspection, nondistended, normoactive bowel sounds Extremity no clubbing, cyanosis or edema Skin Wound Narrative: Small abscess proximal left thigh Neuro oriented x3, CN's II-XII intact bilaterally and moves all extremities Psych cooperative and affect normal Lab / Micro Data Result Diagrams: 09/02/21 05:30 09/02/21 05:30 Labs: Laboratory Results - last 24 hr 09/01/21 09:30: WBC 8.3, RBC 4.76, Hgb 14.9, Hct 43.7, MCV 91.8, MCH 31.3, MCHC 34.1, RDW Std Deviation 45.7 H, RDW Coeff of Ham 13.3, Plt Count 253, MPV 10.3, Immature Gran % (Auto) 0.500, Neut % (Auto) 69.9, Lymph % (Auto) 15.7 L, [place] % (Auto) 13.4 H, Eos % (Auto) 0.1, Baso % (Auto) 0.4, Absolute Neuts (auto) 5.8, Absolute Lymphs (auto) 1.31, Nucleated RBC % 0 09/01/21 09:30: PT 17.3 H, INR 1.4 09/01/21 09:30: Sodium 128 L, Potassium 3.1 L, Chloride 91 L, Carbon Dioxide 30.0, Anion Gap 7, BUN 17, Creatinine 1.04 H, Estim Creat Clear Calc 56.64, Est GFR (MDRD) Af Amer 70, Est GFR (MDRD) Non-Af 58 L, BUN/Creatinine Ratio 16.3, Glucose 137 H, Calcium 8.6, Total Bilirubin 1.20 H, Direct Bilirubin 0.34 H, AST 29, ALT 24, Alkaline Phosphatase 49, Troponin I High Sens 20, Total Protein 9.0 H, Albumin 3.8, Globulin 5.2 H 09/01/21 09:30: B-Natriuretic Peptide 85.3 09/01/21 14:45: S.aureus Protein A PCR POSITIVE H, MRSA (PCR) Negative 09/01/21 16:29: POC Glucose 145 H 09/01/21 17:10: Troponin I High Sens 21 09/01/21 21:11: Troponin I High Sens 17 09/01/21 21:38: POC Glucose 115 H 09/02/21 05:30: WBC 5.5, RBC 4.14 L, Hgb 12.9, Hct 39.0, MCV 94.2, MCH 31.2, MCHC 33.1, RDW Std Deviation 46.5 H, RDW Coeff of Ham 13.6, Plt Count 204, MPV 10.5, Immature Gran % (Auto) 0.400, Neut % (Auto) 43.8 L, Lymph % (Auto) 35.4, [place] % (Auto) 18.6 H, Eos % (Auto) 1.3, Baso % (Auto) 0.5, Absolute Neuts (auto) 2.4, Absolute Lymphs (auto) 1.96, Nucleated RBC % 0 09/02/21 05:30: PT 19.5 H, INR 1.7 09/02/21 05:30: Sodium 134 L, Potassium 3.1 L, Chloride 98, Carbon Dioxide 30.0, Anion Gap 6, BUN 15, Creatinine 0.71, Estim Creat Clear Calc 82.96, Est GFR (MDRD) Af Amer 109, Est GFR (MDRD) Non-Af 90, BUN/Creatinine Ratio 21.2 H, Glucose 118 H, Calcium 8.0 L, Phosphorus 3.5, Magnesium 1.9, Total Bilirubin 0.70, AST 25, ALT 19, Alkaline Phosphatase 38 L, Total Protein 7.2, Albumin 2.9 L, Globulin 4.3 H, Albumin/Globulin Ratio 0.7 L 09/02/21 06:24: POC Glucose 124 H Micro: Microbiology 09/01/21 09:30 Nasal Secretion SARS-CoV-2 & FLU Antigen (Rapid) - Final Radiology Impression Chest X-Ray 09/01/21 10:08 IMPRESSION: Stable findings. Minimal right lower lobe fibrosis. Status post sternotomy. Borderline cardiomegaly. Status post post mitral valve replacement surgery. Electronically Signed: Francesco Gaona MD, RENU at 10:29 EDT , Chest CTA 09/01/21 11:37 IMPRESSION: Normal CTA chest examination, without a demonstrated pulmonary embolism or arterial dissection. Electronically Signed: Modesto Freed MD at 13:20 EDT , Charges/Coding Visit Charges Inpatient E&M: 13519 Init Hosp L3
[2021-09-02] MEDS: Multivitamins,Therapeutic Tablet 1 TABLET PO (07:49)
--- NOTE | 2021-09-02 10:38 | DCINST_ITS ---
Discharge Instructions Diet Discharge Diet: No restrictions Activity Discharge Activity: Return to Normal Activity Follow Up Care Test Results: Test results from this visit will be discussed in further detail at your follow-up appointment, if applicable. Discharge Plan Admission Admit Date/Time: 09/01/21 14:13 Primary Reason for Your Visit: wheezing, dyspnea Attending Provider: Francesco Mora Primary Care Provider: Marta Luna Consulting Providers: Vladislav Ramos ; Uli Garvin ; Corina Gleason NP ; Erin Marte Instructions Additional Instructions / Restrictions: use Symbicort 160/4.5 twice a day-you will have a script at [facility] after use Discharge Orders/Prescriptions Prescriptions: New montelukast 10 mg Tablet 10 mg PO DINNER Qty: 30 RF: 0 prednisone 20 mg tablet 20 mg PO UD Qty: 18 RF: 0 Continued duloxetine [Cymbalta] 60 mg capsule,delayed release(DR/EC) 120 mg PO DAILY RF: 0 metformin 500 mg tablet 250 mg PO DAILY RF: 0 albuterol sulfate [Ventolin HFA] 90 mcg/actuation HFA aerosol inhaler 2 puff INHALATION Q4H PRN (Reason: shortness of breath or wheezing) Qty: 8.5 RF: 6 metoprolol tartrate 25 mg tablet 25 mg PO BID Qty: 180 RF: 3 acetaminophen [Tylenol Extra Strength] 500 mg tablet 1,000 mg PO DAILY RF: 0 guaifenesin [Mucinex] 600 mg tablet extended release 12hr 600 mg PO Q12H PRN (Reason: cough, congestion) Qty: 14 RF: 0 doxycycline hyclate 150 mg tablet 100 mg PO BID RF: 0 benzonatate 200 mg capsule 200 mg PO TID PRN (Reason: cough) Qty: 90 RF: 0 guaifenesin 1,200 mg tablet extended release 12hr 1,200 mg PO Q12H Qty: 60 RF: 6 fluticasone propionate [Flonase Allergy Relief] 50 mcg/actuation spray,suspension 2 spray INTRANASAL QDAY Qty: 1 RF: 3 ipratropium-albuterol 0.5 mg-3 mg(2.5 mg base)/3 mL solution for nebulization 3 ml inhalation Q4H PRN PRN (Reason: SOB &/OR WHEEZING) Qty: 180 RF: 6 aspirin 81 MG tablet,chewable 81 mg PO DAILY@1999 RF: 0 multivitamin with folic acid 1 TABLET tablet 1 tab PO DAILY RF: 0 omeprazole 40 MG capsule,delayed release(DR/EC) 40 mg PO DAILY RF: 0 melatonin 5 MG capsule 5 mg PO QHS RF: 0 Potassium Chloride [Klor-Con M20] 20 MEQ Tab.Er.Prt 40 meq PO DAILY RF: 0 loratadine 10 MG tablet 10 mg PO DAILY RF: 0 cholecalciferol (vitamin D3) 1,250 mcg (50,000 unit) capsule 1,250 mcg PO QWEEK RF: 0 diphenhydramine HCl [Benadryl] 25 MG capsule 25 mg PO QHS RF: 0 warfarin 7.5 mg tablet 7.5 mg PO DAILY Qty: 90 RF: 3 warfarin 5 mg tablet 2.5 mg PO DAILY RF: 0 torsemide 20 mg tablet 40 mg PO DAILY Qty: 180 RF: 3 pravastatin 40 mg tablet 20 mg PO QHS Qty: 45 RF: 3 warfarin 5 mg tablet 5 mg PO .COMPLEX Qty: 90 RF: 4 Referrals / Follow Up: Marta Luna NP-C [Primary Care Provider] - Within 2 Weeks Uli Garvin DO [STAFF PHYSICIAN] - See Referral Note (in two weeks)
[2021-09-02] MEDS: Potassium Chloride Oral Tablet 20 MEQ 40 MEQ PO (11:03)
[2021-09-02] MEDS: Montelukast 10 MG Tablet PO (11:03)
[2021-09-02] MEDS: predniSONE 20 MG Tablet 60 MG PO (11:03)
[2021-09-02] MEDS: Pantoprazole Sodium 40 MG Tablet PO (11:04)
[2021-09-02] MEDS: guaiFENesin 1,200 MG Tablet 1200 MG PO (11:04)
[2021-09-02] MEDS: DULoxetine Hcl 60 MG Capsule 120 MG PO (11:04)
[2021-09-02] MEDS: Metoprolol Tartrate 25 MG Tablet PO (11:04)
[2021-09-02] MEDS: Loratadine 10 MG Tablet PO (11:05)
--- NOTE | 2021-09-02 18:31 | DS.PCM_ITS ---
Providers Date of Admission: 09/01/21 Date of Discharge: 09/02/21 Primary Care Physician: ROCK Robin Consultations 09/01/21 14:47 Consult: Onc/Wound/commercial portfolio manager Routine Comment: 09/01/21 15:33 Consult: Furnace Utility Operator / Pulmonary Medicine Routine Consulting Provider: Pulmonary Medicine edmond [place] Reason for Consult: SOB with exertion-sees Richard EMERGENT Consult: No MD Notified: Yes Date Notified: 09/02/21 Time Notified: 06:49 Method of Notification: Text Reason For Visit: SOB Diagnosis Discharge Diagnosis (1) SOB (shortness of breath): Status: Acute Code(s): R06.02 - Shortness of breath Plan: 1. Generalized weakness #2 dyspnea without hypoxia #3 superficial left thigh abscess #4 hypokalemia #5 subtherapeutic INR #6 mechanical mitral valve #7 obstructive sleep apnea #8 paroxysmal atrial fibrillation #9 asthma-chronic Medications at Discharge Home Medications aspirin 81 mg PO DAILY@199905/30/16 multivitamin with folic acid 1 tab PO DAILY 05/30/16 metformin 500 mg tablet 250 mg PO DAILY tab 08/16/19 Potassium Chloride [Klor-Con M20] 40 meq PO DAILY 05/21/20 loratadine 10 mg PO DAILY 05/21/20 melatonin 5 mg PO QHS 05/21/20 omeprazole 40 mg PO DAILY 05/21/20 albuterol sulfate 90 mcg/actuation aerosol inhaler 2 puff INHALATION Q4H PRN #8.5 gm 07/03/20 warfarin 7.5 mg tablet 7.5 mg PO DAILY #90 tab 10/17/20 acetaminophen 500 mg tablet 1,000 mg PO DAILY tab 11/08/20 cholecalciferol (vitamin D3) 1,250 mcg (50,000 unit) capsule 1,250 mcg PO QWEEK cap 11/08/20 duloxetine 60 mg capsule,delayed release 120 mg PO DAILY cap 11/08/20 warfarin 5 mg tablet 2.5 mg PO DAILY 11/22/20 torsemide 20 mg tablet 40 mg PO DAILY #180 tab 11/30/20 metoprolol tartrate 25 mg tablet 25 mg PO BID #180 tab 12/11/20 pravastatin 40 mg tablet 20 mg PO QHS #45 tab 01/02/21 diphenhydramine HCl [Benadryl] 25 mg PO QHS 01/30/21 guaifenesin 600 mg tablet, extended release 12 hr 600 mg PO Q12H PRN #14 tab 03/02/21 warfarin 5 mg tablet 5 mg PO .COMPLEX #90 tab 08/27/21 benzonatate 200 mg capsule 200 mg PO TID PRN #90 cap 08/30/21 doxycycline hyclate 150 mg tablet 100 mg PO BID tab 08/30/21 fluticasone propionate 50 mcg/actuation nasal spray,suspension 2 spray INTRANASAL QDAY #1 device 08/30/21 guaifenesin 1,200 mg tablet, extended release 12 hr 1,200 mg PO Q12H #60 tab 08/30/21 ipratropium 0.5 mg-albuterol 3 mg (2.5 mg base)/3 mL nebulization soln 3 ml INHALATION Q4H PRN PRN #180 ml 08/30/21 montelukast 10 mg PO DINNER #30 tab 09/02/21 prednisone 20 mg PO UD #18 tab 09/02/21 enoxaparin 120 mg/0.8 mL subcutaneous syringe 120 mg SUBCUT Q12H #8 ml 09/06/21 Hospital Course Operations None Procedures None Summary of Care Provided Minutes Spent on Discharge: 30 Hospital Course: This 61-year-old white female seen in the emergency room at [facility] with complaints of cough, chest congestion, and weakness. She has had the symptoms over the last several weeks. She stated over the last 2 days his symptoms have worsened. She had recently seen her PCP who had placed her on antibiotics due to a abscessed area on the inner aspect of her left thigh. Patient stated that she had COVID-19 in April 2021. Work-up in the emergency room showed the patient had normal white blood cell count, INR was subtherapeutic at 1.4, potassium was low at 3.1. Chest x-ray shows chronic interstitial lung changes with no infiltrates. CTA of the chest was performed, there is noted to be a small peripheral infiltrate at the base of the right upper lobe which was not felt to be pneumonia. Patient did not require oxygen in the emergency room. Patient was placed in observation status on MedSur, antibiotics were continued for treatment of her left thigh abscess-this appeared to this examiner to be superficial. She was seen in consultation by pulmonary medicine also. Pulmonary medicine recommended patient go on a combination long- acting bronchodilator with steroids at the time of discharge. On 09/02/2021, patient was seen and examined: On examination she appeared in good health and spirits, she does not appear to be in any distress. Vital signs as documented. Skin warm and dry and without overt rashes, there is noted to be an indurated area on the inner aspect of the patient's left thigh approximately 2 to 3 cm in diameter-no discharge was noted from the area. Neck without JVD, thyroid appears normal, trachea is midline, neck is supple. Lungs clear, normal air movement was noted. Heart exam notable for regular rhythm, normal sounds and absence of murmurs, rubs or gallops. Abdomen unremarkable and without evidence of organomegaly, masses, or abdominal aortic enlargement, bowel sounds are present in all 4 quadrants, no abdominal tenderness was noted. Extremities-there was a indurated area on the lower aspect of the left inner thigh that was approximately 2 to 3 cm in diameter, no drainage was noted from the area, no cyanosis was noted, no clubbing was noted. Neuro: Cranial nerves II through XII are grossly intact, no focal motor deficits were noted, sensation to light touch and pinprick is intact, motor exam 5/5 throughout. Psych: Patient is alert and oriented x3, she does not appear anxious or depressed, she does not appear agitated. Patient was felt to be stable for discharge on 09/02/2021. Weight / BMI Weight Weight: 110.649 kg Body Mass Index (BMI) 38.3 ABG / Lab / Microbiology Data Result Diagrams: 09/02/21 05:30 09/02/21 05:30 Laboratory: Laboratory Results - last 24 hr 09/01/21 21:11: Troponin I High Sens 17 09/01/21 21:38: POC Glucose 115 H 09/02/21 05:30: WBC 5.5, RBC 4.14 L, Hgb 12.9, Hct 39.0, MCV 94.2, MCH 31.2, MCH C 33.1, RDW Std Deviation 46.5 H, RDW Coeff of Ham 13.6, Plt Count 204, MPV 1 0.5, Immature Gran % (Auto) 0.400, Neut % (Auto) 43.8 L, Lymph % (Auto) 35.4, Terry % (Auto) 18.6 H, Eos % (Auto) 1.3, Baso % (Auto) 0.5, Absolute Neuts (auto) 2.4, Absolute Lymphs (auto) 1.96, Nucleated RBC % 0 09/02/21 05:30: PT 19.5 H, INR 1.7 09/02/21 05:30: Sodium 134 L, Potassium 3.1 L, Chloride 98, Carbon Dioxide 30.0, Anion Gap 6, BUN 15, Creatinine 0.71, Estim Creat Clear Calc 82.96, Est GFR (MDRD) Af Amer 109, Est GFR (MDRD) Non-Af 90, BUN/Creatinine Ratio 21.2 H, Glucose 118 H, Calcium 8.0 L, Phosphorus 3.5, Magnesium 1.9, Total Bilirubin 0.70, AST 25, ALT 19, Alkaline Phosphatase 38 L, Total Protein 7.2, Albumin 2.9 L, Globulin 4.3 H, Albumin/Globulin Ratio 0.7 L 09/02/21 06:24: POC Glucose 124 H Microbiology: Microbiology 09/01/21 14:45 Wound - Leg, Left Gram Stain - Final 09/01/21 14:45 Wound - Leg, Left Wound Culture - Preliminary Staphylococcus aureus Beta hemolytic organism 09/01/21 09:30 Nasal Secretion SARS-CoV-2 & FLU Antigen (Rapid) - Final D/C Instructions Discharge Diet: No restrictions Meaningful Use Info Meaningful Use Diagnoses (Choose all that apply): None applicable Discharge Plan Admission Admit Date/Time: 09/01/21 14:13 Primary Reason for Your Visit: wheezing, dyspnea Attending Provider: Francesco Mora Primary Care Provider: Marta Luna Consulting Providers: Vladislav Ramos ; Uli Garvin ; Corina Gleason PROJECT RESERVOIR ENGINEER ; Erin Marte Instructions Additional Instructions / Restrictions: use Symbicort 160/4.5 twice a day-you will have a script at [facility] after use Discharge Orders/Prescriptions Prescriptions: New montelukast 10 mg Tablet 10 mg PO DINNER Qty: 30 RF: 0 prednisone 20 mg tablet 20 mg PO UD Qty: 18 RF: 0 Continued duloxetine [Cymbalta] 60 mg capsule,delayed release(DR/EC) 120 mg PO DAILY RF: 0 metformin 500 mg tablet 250 mg PO DAILY RF: 0 albuterol sulfate [Ventolin HFA] 90 mcg/actuation HFA aerosol inhaler 2 puff INHALATION Q4H PRN (Reason: shortness of breath or wheezing) Qty: 8.5 RF: 6 metoprolol tartrate 25 mg tablet 25 mg PO BID Qty: 180 RF: 3 acetaminophen [Tylenol Extra Strength] 500 mg tablet 1,000 mg PO DAILY RF: 0 guaifenesin [Mucinex] 600 mg tablet extended release 12hr 600 mg PO Q12H PRN (Reason: cough, congestion) Qty: 14 RF: 0 doxycycline hyclate 150 mg tablet 100 mg PO BID RF: 0 benzonatate 200 mg capsule 200 mg PO TID PRN (Reason: cough) Qty: 90 RF: 0 guaifenesin 1,200 mg tablet extended release 12hr 1,200 mg PO Q12H Qty: 60 RF: 6 fluticasone propionate [Flonase Allergy Relief] 50 mcg/actuation spray,suspension 2 spray INTRANASAL QDAY Qty: 1 RF: 3 ipratropium-albuterol 0.5 mg-3 mg(2.5 mg base)/3 mL solution for nebulization 3 ml inhalation Q4H PRN PRN (Reason: SOB &/OR WHEEZING) Qty: 180 RF: 6 aspirin 81 MG tablet,chewable 81 mg PO DAILY@1999 RF: 0 multivitamin with folic acid 1 TABLET tablet 1 tab PO DAILY RF: 0 omeprazole 40 MG capsule,delayed release(DR/EC) 40 mg PO DAILY RF: 0 melatonin 5 MG capsule 5 mg PO QHS RF: 0 Potassium Chloride [Klor-Con M20] 20 MEQ Tab.Er.Prt 40 meq PO DAILY RF: 0 loratadine 10 MG tablet 10 mg PO DAILY RF: 0 cholecalciferol (vitamin D3) 1,250 mcg (50,000 unit) capsule 1,250 mcg PO QWEEK RF: 0 diphenhydramine HCl [Benadryl] 25 MG capsule 25 mg PO QHS RF: 0 warfarin 7.5 mg tablet 7.5 mg PO DAILY Qty: 90 RF: 3 warfarin 5 mg tablet 2.5 mg PO DAILY RF: 0 torsemide 20 mg tablet 40 mg PO DAILY Qty: 180 RF: 3 pravastatin 40 mg tablet 20 mg PO QHS Qty: 45 RF: 3 warfarin 5 mg tablet 5 mg PO .COMPLEX Qty: 90 RF: 4 No Action enoxaparin [Lovenox] 120 mg/0.8 mL syringe 120 mg subcut Q12H Qty: 8 RF: 0 Referrals / Follow Up: Uli Garvin DO [STAFF PHYSICIAN] - See Referral Note (in two weeks) Marta Luna NP-C [Primary Care Provider] - Within 2 Weeks Disposition Disposition (needs filled in before D/C Order can be placed): Home, Self Care Charges/Coding Visit Charges OBSV E&M: 38409 Observation care discharge
== END 2021-09-02 11:43 | disposition home or self-care (01) ==
LOC: ED 14:06 → MS3 14:47
PROVIDERS: Admitting Provider Internal Medicine; Emergency Provider Emergency Medicine; PCP Nurse Practitioner Adult Health; Visit Provider Internal Medicine
DX: R06.02 Shortness of breath (principal); I11.0 Hypertensive heart disease with heart failure; I50.32 Chronic diastolic (congestive) heart failure; I48.0 Paroxysmal atrial fibrillation; E66.01 Morbid (severe) obesity due to excess calories; E86.0 Dehydration; E87.6 Hypokalemia; E87.8 Other disorders of electrolyte and fluid balance, not elsewhere classified; G47.33 Obstructive sleep apnea (adult) (pediatric); Z79.01 Long term (current) use of anticoagulants; E78.5 Hyperlipidemia, unspecified; L40.9 Psoriasis, unspecified; E87.1 Hypo-osmolality and hyponatremia; Z79.82 Long term (current) use of aspirin; Z79.84 Long term (current) use of oral hypoglycemic drugs; Z79.899 Other long term (current) drug therapy; Z68.38 Body mass index [BMI] 38.0-38.9, adult; Z86.16 Personal history of COVID-19; Z99.81 Dependence on supplemental oxygen; L02.416 Cutaneous abscess of left lower limb; J45.909 Unspecified asthma, uncomplicated; Z95.2 Presence of prosthetic heart valve
CPT/HCPCS: 36415; 71045; 71275; 80048; 80053; 80076; 82962; 83735; 83880; 84100; 84484; 85025; 85610; 87040; 87070; 87077; 87186; 87205; 87428; 87640; 93005; 94640; 94667; 94668; 96361; 96365; 96366; 96367; 96372; 97802; 99218; 99251; 99284; J7030; J7040; Q9967; A4216; G0378; G0463

== ENCOUNTER 2021-09-16 05:59 | Outpatient (RCR) | payer MEDICAID, SELFPAY ==
[2021-09-03 21:40] VITALS: BMI 39.5
[2021-09-06 08:15] LABS: International Normalized Ratio 1.3; Prothrombin Time (Protime)PT. 15.9 SECONDS (11.7-14.9)
[2021-09-09 08:16] LABS: International Normalized Ratio 1.7; Prothrombin Time (Protime)PT. 19.6 SECONDS (11.7-14.9)
[2021-09-11 11:43] LABS: International Normalized Ratio 2.7; Prothrombin Time (Protime)PT. 28.6 SECONDS (11.7-14.9)
[2021-09-16 08:39] LABS: International Normalized Ratio 2.7
== END 2021-09-16 23:59 | disposition home or self-care (01) ==
LOC: LAB 05:59
PROVIDERS: PCP Nurse Practitioner Adult Health; Referring Provider Internal Medicine Cardiovascular Disease; Visit Provider Internal Medicine Cardiovascular Disease
DX: Z95.2 Presence of prosthetic heart valve (principal); Z79.01 Long term (current) use of anticoagulants
CPT/HCPCS: 36415; 85610

== ENCOUNTER → 2021-10-08 | Outpatient (CLI) | payer MEDICAID, SELFPAY ==
--- NOTE | 2021-10-08 13:56 | PFTCOMP ---
COMPLETE PULMONARY FUNCTION TEST INTERPRETATION Brief HPI: Patient is a 61-year-old female, currently under the care of myself, who presents to [facility] for complete pulmonary function tests secondary to diagnosis of dyspnea. Respiratory therapist reports good effort and reproducible results. Interpretation: Forced expiration spirometry shows no large airways obstructive ventilatory defect with an FEV1 of 55% predicted. There is no significant bronchodilator response by strict ATS criteria. Spirograms are of good quality and plateau slowly, indicating slowly emptying areas of the lungs. The respiratory flow volume loop shows decreased expiratory flow rates at high lung volumes consistent with small airways obstruction. Lung volumes by body plethysmography show a decreased total lung capacity at 4.53 L, 82% predicted. FRC and RV are elevated out of proportion. Lung volume measurements are consistent with air-trapping. Diffusion capacity by carbon monoxide is decreased at 53% predicted. The airway resistance is elevated. Compared to previous pulmonary function tests from 05/01/2020, there is been significant worsening in air trapping and DLCO. Impression: Irreversible moderately severe mixed ventilatory defect resulting in air trapping and some worsening compared to previous testing.
== END | disposition home or self-care (01) ==
PROVIDERS: PCP Nurse Practitioner Adult Health; Referring Provider Nurse Practitioner Acute Care; Visit Provider Nurse Practitioner Acute Care
DX: R06.00 Dyspnea, unspecified (principal)
CPT/HCPCS: 36415; 80048; 85610; 94060; 94726; 94729

== ENCOUNTER → 2021-10-09 | Outpatient (CLI) | payer MEDICAID, SELFPAY ==
[2021-10-09 12:40] VITALS: PULSE 110; PULSE 70; PULSE 80; PULSE 81; PULSE 93; PULSE 94; PULSE 99; O2SAT 91; O2SAT 92; O2SAT 95; O2SAT 96
--- NOTE | 2021-10-09 13:56 | PCM.PSN.6M ---
PSN 6 Minute Walk Test 6 Minute Walk Test 6 Minute Walk Test: 6 Minute Walk Test PSN:6-Minute Walk Test Start: 10/09/21 12:40 Freq: Status: Active Protocol: RESP.6MINW Document 10/09/21 12:40 RASHAD (Rec: 10/09/21 12:42 RASHAD [id number]) 6 Minute Walk Test Date Performed 10/09/21 Time Performed 12:30 Height 5 ft 7 in Weight: 113.398 kg Weight in Pounds 250.[address]: Vladislav Ramos Assistive device used: None Pre-test Oxygen Delivery Method Room Air Pulse Ox (%) 96 Pulse Rate (60-100 beats/min) 70 Dyspnea Jesse Scale (0-10) 0.5 Exertion Jesse Scale (6-20) 6 1st minute Oxygen Delivery Method Room Air Pulse Ox (%) 91 Pulse Rate (60-100 beats/min) 81 2nd minute Oxygen Delivery Method Room Air Pulse Ox (%) 91 Pulse Rate (60-100 beats/min) 94 3rd minute Oxygen Delivery Method Room Air Pulse Ox (%) 91 Pulse Rate (60-100 beats/min) 94 4th minute Oxygen Delivery Method Room Air Pulse Ox (%) 91 Pulse Rate (60-100 beats/min) 93 5th minute Oxygen Delivery Method Room Air Pulse Ox (%) 92 Pulse Rate (60-100 beats/min) 110 H 6th minute Oxygen Delivery Method Room Air Pulse Ox (%) 92 Pulse Rate (60-100 beats/min) 99 Dyspnea Jesse Scale (0-10) 2 Exertion Jesse Scale (6-20) 13 Post-test Oxygen Delivery Method Room Air Pulse Ox (%) 95 Pulse Rate (60-100 beats/min) 80 Full Laps Walked 16 Partial Lap, Number of Tiles Walked 30 Total Distance Walked (ft) 974 Interpretation Interpretation: The patient was able to ambulate 974 feet over the course of 6 minutes on room air with no assistive devices or breaks. The patient experienced significant desaturation from a baseline of 96 to as low as 91%. Patient did have an element of reflexive tachycardia as high as 110 bpm. These findings are consistent with a respiratory limitation exercise tolerance. Recommendations Recommendations: No supplemental oxygen is indicated at this time. However, patient will need to be followed closely given level of desaturation.
== END | disposition home or self-care (01) ==
LOC: PSN 11:52
PROVIDERS: PCP Nurse Practitioner Adult Health; Referring Provider Internal Medicine Critical Care Medicine; Visit Provider Internal Medicine Critical Care Medicine
DX: R06.00 Dyspnea, unspecified (principal)
CPT/HCPCS: 94618

== ENCOUNTER 2021-10-11 07:37 | Outpatient (RCR) | payer MEDICAID, SELFPAY ==
[2021-10-04 08:03] VITALS: BMI 39.5
[2021-10-08 08:35] LABS: Anion Gap 4 (5-15); BUN 15 mg/dL (7-18); BUN/Creat Ratio 22.5 RATIO (10-20); Calcium,Total 9.5 mg/dL (8.5-10.1); Chloride 105 mmol/L (98-107); Creatinine, Serum 0.67 mg/dL (0.55-1.02); EST Glomerular Filtration Rate 96 mL/min (>60); Est Glom Filt Rate - Afr Amer 117 mL/min (>60); Glucose 134 mg/dL (74-106); Potassium 3.9 mmol/L (3.5-5.1); Sodium Level 140 mmol/L (136-145)
[2021-10-08 08:42] LABS: International Normalized Ratio 1.8; Prothrombin Time (Protime)PT. 20.9 SECONDS (11.7-14.9)
[2021-10-11 08:55] LABS: Prothrombin Time (Protime)PT. 22.5 SECONDS (11.7-14.9)
== END 2021-11-03 03:20 | disposition home or self-care (01) ==
LOC: LAB 07:37
PROVIDERS: Physician Assistant Medical; PCP Nurse Practitioner Adult Health; Referring Provider Internal Medicine Cardiovascular Disease; Visit Provider Internal Medicine Cardiovascular Disease
DX: Z95.2 Presence of prosthetic heart valve (principal); Z79.01 Long term (current) use of anticoagulants
CPT/HCPCS: 36415; 80048; 85610

== ENCOUNTER 2021-11-25 06:57 | Outpatient (RCR) | payer MEDICAID, SELFPAY ==
[2021-11-03 03:20] VITALS: BMI 39.5
[2021-11-04 08:13] LABS: International Normalized Ratio 2.9; Prothrombin Time (Protime)PT. 29.6 SECONDS (11.7-14.9)
[2021-11-25 08:26] LABS: International Normalized Ratio 2.4; Prothrombin Time (Protime)PT. 25.5 SECONDS (11.7-14.9)
== END 2021-11-25 18:00 | disposition home or self-care (01) ==
LOC: LAB 06:57
PROVIDERS: PCP Nurse Practitioner Adult Health; Referring Provider Internal Medicine Cardiovascular Disease; Visit Provider Internal Medicine Cardiovascular Disease
DX: Z95.2 Presence of prosthetic heart valve (principal); Z79.01 Long term (current) use of anticoagulants
CPT/HCPCS: 36415; 85610

== ENCOUNTER 2021-12-23 07:30 | Outpatient (RCR) | payer MEDICAID, SELFPAY ==
[2021-12-05 00:38] VITALS: BMI 39.5
[2021-12-06 08:35] LABS: International Normalized Ratio 2.6; Prothrombin Time (Protime)PT. 27.2 SECONDS (11.7-14.9)
[2021-12-23 08:21] LABS: Anion Gap 7 (5-15); BUN 19 mg/dL (7-18); BUN/Creat Ratio 22.2 RATIO (10-20); Calcium,Total 8.9 mg/dL (8.5-10.1); Chloride 103 mmol/L (98-107); Creatinine, Serum 0.86 mg/dL (0.55-1.02); EST Glomerular Filtration Rate 72 mL/min (>60); Est Glom Filt Rate - Afr Amer 87 mL/min (>60); Glucose 136 mg/dL (74-106); Potassium 3.6 mmol/L (3.5-5.1); Sodium Level 140 mmol/L (136-145)
[2021-12-23 08:28] LABS: International Normalized Ratio 2.1; Prothrombin Time (Protime)PT. 23.3 SECONDS (11.7-14.9)
[2021-12-23 11:04] LABS: AST(SGOT) 17 U/L (15-37); Alanine Aminotransfer ALT/SGPT 21 U/L (13-56); Albumin, Serum 3.2 g/dL (3.2-5.0); Alkaline Phosphatase 42 U/L (45-117); Bilirubin, Direct 0.12 mg/dL (0.00-0.30); Globulin 4.1 g/dL (2.2-4.2); Magnesium 1.9 mg/dL (1.6-2.6); Protein, Total 7.3 g/dL (6.4-8.2); Thyroid Stim Hormone (TSH) 1.09 uIU/mL (0.358-3.74)
== END 2021-12-23 18:00 | disposition home or self-care (01) ==
LOC: LAB 07:30
PROVIDERS: Nurse Practitioner Gerontology; PCP Nurse Practitioner Adult Health; Referring Provider Internal Medicine Cardiovascular Disease; Visit Provider Internal Medicine Cardiovascular Disease
DX: Z95.2 Presence of prosthetic heart valve (principal); Z79.01 Long term (current) use of anticoagulants
CPT/HCPCS: 36415; 80048; 80076; 83735; 84443; 85610

== ENCOUNTER 2022-01-29 07:21 | Outpatient (RCR) | payer MEDICAID, SELFPAY ==
[2022-01-03 23:44] VITALS: BMI 39.5
[2022-01-13 08:56] LABS: International Normalized Ratio 3.3; Prothrombin Time (Protime)PT. 33.6 SECONDS (11.7-14.9)
[2022-01-29 09:43] LABS: International Normalized Ratio 3.1; Prothrombin Time (Protime)PT. 31.5 SECONDS (11.7-14.9)
== END 2022-02-03 09:43 | disposition home or self-care (01) ==
LOC: LAB 07:21
PROVIDERS: PCP Nurse Practitioner Adult Health; Referring Provider Internal Medicine Cardiovascular Disease; Visit Provider Internal Medicine Cardiovascular Disease
DX: Z95.2 Presence of prosthetic heart valve (principal); Z79.01 Long term (current) use of anticoagulants
CPT/HCPCS: 36415; 85610

== ENCOUNTER 2022-02-13 07:03 | Emergency (ER) | payer MEDICAID, SELFPAY ==
[2022-02-13 07:03] VITALS: BP 177/92; PULSE 116; RESP 16; TEMP 36.8; O2SAT 92; BMI 39.1
[2022-02-13 07:14] VITALS: O2SAT 93
--- NOTE | 2022-02-13 07:29 | EDS_ITS ---
HPI HPI - URI History of Present Illness Chief Complaint: Shortness of Breath Informant: patient Onset/Context/Timing Onset: Days (3) Context: Gradual Onset Timing: Continuous Quality: Congested Location: Chest and upper respiratory tract Worsened by: - (Nothing) Relieved by: - (Symbicort and DuoNeb) Associated Symptoms Associated Symptoms: Positive for Nasal Congestion, Headache, Shortness of Breath and Nonproductive cough; Negative for Sinus Pressure, Myalgias, Nausea, Vomiting, Diarrhea, Chest Pain, Hemoptysis or Productive Cough Narrative Narrative: Patient presents with shortness of breath and congestion that has been getting worse over the last 3 days. Patient states she feels congested in her chest and upper respiratory tract. Patient admits to a cough but denies any sputum pro duction. Patient states he feels short of breath. Patient states it is better when she takes a DuoNeb aerosol and her Symbicort. Patient states nothing makes it worse. Patient admits to subjective fevers and chills. Patient admits to some rhinorrhea. Patient also admits to a headache. Patient states her grandchildren have been diagnosed with RSV recently. ROS ROS ED Constitutional Constitutional ED: Reports chills, fever(s) and subjective Eyes Eyes: Denies blurry vision or change in vision ENT ENT ED: Reports rhinorrhea; Denies sore throat Cardiovascular Cardiovascular: Denies chest pain or palpitations Respiratory/Chest Respiratory/Chest: Reports cough and dyspnea Gastrointestinal Gastrointestinal: Denies nausea or vomiting Genitourinary Genitourinary ED: Denies dysuria or hematuria Musculoskeletal Musculoskeletal: Reports neck pain; Denies back pain Integumentary Denies abscess or rash Neurologic Neurologic: Reports headache(s); Denies weakness Allergic/Immunologic Allergic/Immunologic ED: Denies mouth swelling or urticaria [facility] Medical History Allergic rhinitis Anxiety Asthma Cancer Chronic diastolic (congestive) heart failure Congenital subaortic stenosis of membranous type COVID-19 (05/01/21) CPAP (continuous positive airway pressure) dependence Cutaneous abscess Endometrial cancer Essential (primary) hypertension History of bacterial endocarditis HLD (hyperlipidemia) Hypertension Left bundle branch block Morbid obesity Narcolepsy Nonrheumatic aortic (valve) stenosis with insufficiency Nonrheumatic mitral valve insufficiency Obesity Obstructive sleep apnea On home oxygen therapy Positive GBS test Psoriasis Secondary pulmonary arterial hypertension Streptococcal septicemia Subvalvar aortic stenosis Wears dentures Wears glasses Home Medications aspirin 81 mg chewable tablet 81 mg PO DAILY@1999 HEART HEALTH 05/30/16 [History Last Taken 07/10/20] multivitamin with folic acid 400 mcg tablet 1 tab PO DAILY SUPPLEMETN 05/30/16 [History Last Taken 07/10/20] metformin 500 mg tablet 250 mg PO DAILY DM 08/16/19 [History Last Taken 07/10/20] melatonin 5 mg capsule 5 mg PO QHS SLEEP 05/21/20 [History Last Taken 07/09/20] omeprazole 40 mg capsule,delayed release 40 mg PO DAILY GERD 05/21/20 [History Last Taken 02/04/21] acetaminophen 500 mg tablet (Tylenol Extra Strength) 1,000 mg PO DAILY 11/08/20 [History Last Taken Unknown] cholecalciferol (vitamin D3) 1,250 mcg (50,000 unit) capsule 1,250 mcg PO QWEEK supplement 11/08/20 [History Last Taken 08/26/21] duloxetine 60 mg capsule,delayed release (Cymbalta) 120 mg PO DAILY 11/08/20 [History Last Taken 09/01/21 10:00] warfarin 5 mg tablet 2.5 mg PO DAILY 11/22/20 [History Last Taken 01/31/21] metoprolol tartrate 25 mg tablet 25 mg PO BID HEART #180 tabs 12/11/20 [Rx Last Taken 02/04/21] diphenhydramine HCl 25 mg capsule (Benadryl) 25 mg PO QHS 01/30/21 [History Last Taken Unknown] warfarin 5 mg tablet 5 mg PO .COMPLEX #90 tabs 08/27/21 [Rx Last Taken Unknown] benzonatate 200 mg capsule 200 mg PO TID PRN cough #90 caps 08/30/21 [Rx Last Taken Unknown] doxycycline hyclate 150 mg tablet 100 mg PO BID 08/30/21 [History Last Taken 08/31/21 20:00] prednisone 20 mg tablet 20 mg PO UD #18 tabs 09/02/21 [Rx Last Taken Unknown] enoxaparin 120 mg/0.8 mL subcutaneous syringe (Lovenox) 120 mg (0.8 mL) subcut Q12H #8 mL 09/06/21 [Rx Last Taken Unknown] torsemide 20 mg tablet 40 mg PO DAILY FLUID #180 tabs 11/18/21 [Rx Last Taken Unknown] warfarin 7.5 mg tablet 7.5 mg PO .COMPLEX #90 tabs 11/18/21 [Rx Last Taken Unknown] potassium chloride 20 mEq tablet,extended release(part/cryst) (Klor-Con M) 20 meq PO .COMPLEX this RX is for dose correction #270 tabs 12/06/21 [Rx Last Taken Unknown] pravastatin 40 mg tablet 20 mg PO QHS CHOLESTEROL #45 tabs 01/01/22 [Rx Last Taken Unknown] albuterol sulfate 90 mcg/actuation aerosol inhaler (Ventolin HFA) 2 puff inhalation Q4H PRN shortness of breath or wheezing #8.5 grams 01/15/22 [Rx Last Taken Unknown] budesonide-formoterol HFA 160 mcg-4.5 mcg/actuation aerosol inhaler (Symbicort) 2 puff inhalation BID #10.2 grams 01/15/22 [Rx Last Taken Unknown] fluticasone propionate 50 mcg/actuation nasal spray,suspension (Flonase Allergy Relief) 2 spray intranasal QDAY #1 device 01/15/22 [Rx Last Taken Unknown] guaifenesin 1,200 mg tablet, extended release 12 hr 1,200 mg PO Q12H #60 tabs 01/15/22 [Rx Last Taken Unknown] ipratropium 0.5 mg-albuterol 3 mg (2.5 mg base)/3 mL nebulization soln 3 ml inhalation Q4H PRN PRN SOB &/OR WHEEZING #180 mL 01/15/22 [Rx Last Taken Unknown] loratadine 10 mg tablet 10 mg PO DAILY ALLERGIES #90 tabs 01/15/22 [Rx Last Taken Unknown] montelukast 10 mg tablet 10 mg PO DINNER #90 tabs 01/15/22 [Rx Last Taken Unknown] gabapentin 100 mg capsule 100 mg PO BID 02/04/22 [History Last Taken Unknown] gabapentin 100 mg capsule 300 mg PO QHS 02/04/22 [History Last Taken Unknown] Allergy/AdvReac Type Severity Reaction Status Date / Time clarithromycin [From Biaxin] Allergy Severe SOB, hives Verified 02/04/22 11:20 and swelling cephalexin [Cephalexin] Allergy Rash Verified 02/04/22 11:20 simvastatin Allergy Rash Verified 02/04/22 11:20 sulfamethoxazole Allergy Rash Verified 02/04/22 11:20 trimethoprim Allergy Rash/leg Verified 02/04/22 11:20 swelling bupropion AdvReac Severe worsened Verified 02/04/22 11:20 depression adhesive tape AdvReac Itching Verified 02/04/22 11:20 ciprofloxacin AdvReac Itching Verified 02/04/22 11:20 Macrolide Antibiotics AdvReac Unknown Verified 02/04/22 11:20 Penicillins AdvReac Unknown Verified 02/04/22 11:20 Family History Father CAD (coronary artery disease) Hypertension Mother , age 55 Sudden cardiac Hypertension Abdominal aortic aneurysm rupture Brother Hypertension Sister Hypertension Surgical History H/O bilateral salpingo-oophorectomy (01/2020) History of mechanical aortic valve replacement (05/13/16) History of mitral valve replacement with mechanical valve (05/13/16) History of robot-assisted laparoscopic hysterectomy (01/2020) History of tubal ligation HX venous access device placed Resection of subaortic membrane (2002) Social History household members: spouse number of children: 4 current occupational status: unemployed history of recent travel: No sexually active: Yes Smoking Status: Never smoker alcohol intake: never substance use type: does not use diet: low carbohydrate caffeine: No what type of physical activity do you participate in: walking seatbelt use: always do you feel safe at home: Yes additional social history: - Dylan EXAM Physical Exam Const Vital Signs: 02/13/22 07:03 02/13/22 07:14 02/13/22 08:07 Temperature 98.2 F Temperature Source Temporal Pulse Rate 116 H Respiratory Rate 16 Respiratory Effort Short of Breath Respiratory Depth Shallow Blood Pressure 177/92 H Blood Pressure Mean 120 Pulse Ox 92 95 Oxygen Delivery Method Room Air Room Air Room Air 02/13/22 08:07 Temperature Temperature Source Pulse Rate 72 Respiratory Rate 17 Respiratory Effort Respiratory Depth Blood Pressure Blood Pressure Mean Pulse Ox Oxygen Delivery Method Positive well nourished, well developed and obese General Appearance ED: well developed and NAD Nutritional Appearance: obese HEENT Reports moist mucous membranes Neck supple and no JVD Resp normal respiratory effort Auscultation: diminished lung sounds diffuse Cardio regular rate and regular rhythm GI normal to inspection, nondistended, normoactive bowel sounds and non-tender Palpation: soft Extremity normal to inspection General Extremety ED: Negative for edema or tenderness General Extremity: Negative for edema Neuro oriented x3, CN's II-XII intact bilaterally and no sensory deficits noted Sensorium / Orientation: alert Motor Exam: strength 5/5 throughout Psych mental status grossly normal Skin no rashes or lesions noted MDM MDM MDM Narrative Medical decision making narrative: PA and lateral chest x-ray was obtained. There are 2 views. On my interpretation, lung de [place] show some mild degree of congestive heart failure. There is normal cardiac silhouette. Bony thorax is normal. There is no acute process noted. Radiologist also interpreted the x-ray and agrees. CBC was within normal limits. Comprehensive metabolic profile was within normal limits. Patient was given a DuoNeb aerosol here. Patient is feeling better on reevaluation. Patient was advised of her findings. Patient was instructed to continue her torsemide as prescribed. Patient states she has DuoNeb aerosols at home. Patient was instructed to use these as needed. Patient was instructed to follow-up with her primary care physician in 3 to 5 days. Patient understood and was agreeable with the plan. All questions were answered. Lab Data Attestation: I reviewed the patient's lab results. Labs: Laboratory Results - last 24 hr 02/13/22 02/13/22 08:12 08:12 WBC 8.4 RBC 4.48 Hgb 13.7 Hct 42.1 MCV 94.0 MCH 30.6 MCHC 32.5 RDW Std Deviation 48.0 H RDW Coeff of Ham 14.0 Plt Count 236 MPV 10.1 Immature Gran % (Auto) 0.600 Neut % (Auto) 71.1 H Lymph % (Auto) 16.4 L [place] % (Auto) 10.3 H Eos % (Auto) 1.2 Baso % (Auto) 0.4 Absolute Neuts (auto) 5.9 Absolute Lymphs (auto) 1.37 Nucleated RBC % 0 Sodium 137 Potassium 4.1 Chloride 101 Carbon Dioxide 30.0 Anion Gap 6 BUN 18 Creatinine 0.84 Estim Creat Clear Calc 70.13 Est GFR (MDRD) Af Amer 89 Est GFR (MDRD) Non-Af 73 BUN/Creatinine Ratio 21.4 H Glucose 134 H Calcium 9.2 Total Bilirubin 0.50 AST 16 ALT 22 Alkaline Phosphatase 50 Total Protein 7.4 Albumin 3.2 Globulin 4.2 Albumin/Globulin Ratio 0.8 L Radiography Chest X-Ray - ED: 2 View, Read by ED Physician, Read by Radiologist and CHF (Mild) Diagnostic Testing: Clinical Impression(s) from Imaging Studies Chest X-Ray 02/13/22 08:25 IMPRESSION: Status post mitral valve replacement. Mild degree of CHF. Electronically Signed: Luis Boogie MD at 9:04 EST , Discharge Plan Triage Chief Complaint: Shortness of Breath ED Provider: Pepe Streeter Dx/Rx/DC Orders Clinical Impression: Viral upper respiratory tract infection with cough, Chronic diastolic (congestive) heart failure, SOB (shortness of breath) Instructions: ED Dyspnea, ED URI, Viral, No Abx (Adult) Prescriptions: No Action duloxetine [Cymbalta] 60 mg capsule,delayed release(DR/EC) 120 mg PO DAILY metformin 500 mg tablet 250 mg PO DAILY metoprolol tartrate 25 mg tablet 25 mg PO BID Qty: 180 3RF acetaminophen [Tylenol Extra Strength] 500 mg tablet 1,000 mg PO DAILY doxycycline hyclate 150 mg tablet 100 mg PO BID Rx Instructions: HAS TAKEN 4 DAYS WORTH OF MEDS. benzonatate 200 mg capsule 200 mg PO TID PRN (Reason: cough) Qty: 90 0RF albuterol sulfate [Ventolin HFA] 90 mcg/actuation HFA aerosol inhaler 2 puff INHALATION Q4H PRN (Reason: shortness of breath or wheezing) Qty: 8.5 6RF budesonide-formoterol [Symbicort] 160-4.5 mcg/actuation HFA aerosol inhaler 2 puff inhalation BID Qty: 10.2 6RF fluticasone propionate [Flonase Allergy Relief] 50 mcg/actuation spray,suspension 2 spray INTRANASAL QDAY Qty: 1 3RF Rx Instructions: administer into each nostril guaifenesin 1,200 mg tablet extended release 12hr 1,200 mg PO Q12H Qty: 60 6RF ipratropium-albuterol 0.5 mg-3 mg(2.5 mg base)/3 mL solution for nebulization 3 ml inhalation Q4H PRN PRN (Reason: SOB &/OR WHEEZING) Qty: 180 6RF loratadine 10 mg tablet 10 mg PO DAILY Qty: 90 3RF montelukast 10 mg tablet 10 mg PO DINNER Qty: 90 3RF gabapentin 100 mg capsule 100 mg PO BID gabapentin 100 mg capsule 300 mg PO QHS aspirin 81 MG tablet,chewable 81 mg PO DAILY@2000 multivitamin with folic acid 1 TABLET tablet 1 tab PO DAILY omeprazole 40 MG capsule,delayed release(DR/EC) 40 mg PO DAILY melatonin 5 MG capsule 5 mg PO QHS cholecalciferol (vitamin D3) 1,250 mcg (50,000 unit) capsule 1,250 mcg PO QWEEK Label Comments: TAKE 1 CAPSULE BY MOUTH ONCE A WEEK diphenhydramine HCl [Benadryl] 25 MG capsule 25 mg PO QHS prednisone 20 mg tablet 20 mg PO UD Qty: 18 0RF Rx Instructions: one twice a day for 4 days, then one and a half daily for 4 days, then one daily for 4 days, then stop- start on 09/03/21 warfarin 5 mg tablet 2.5 mg PO DAILY Protocol: Dose Management Condition: Thursday Dose/Route: 5 mg Instruction: 1 x 5 mg tablet Condition: Thursday Dose/Route: 7.5 mg Instruction: 1 x 7.5 mg tablet Condition: Thursday Dose/Route: 7.5 mg Instruction: 1 x 7.5 mg tablet Condition: Thursday Dose/Route: 7.5 mg Instruction: 1 x 7.5 mg tablet Condition: Dose/Route: 7.5 mg Instruction: 1 x 7.5 mg tablet Condition: Thursday Dose/Route: 7.5 mg Instruction: 1 x 7.5 mg tablet Condition: Thursday Dose/Route: 5 mg Instruction: 1 x 5 mg tablet Protocol Text: Adjustment Start Date: Thursday01/29/22 INR Value: 3.1 INR Date: 01/29/22 Recheck Date: 02/19/22 Rx Instructions: THURSDAY AND THURSDAY AND OCTAVIO warfarin 5 mg tablet 5 mg PO .COMPLEX Qty: 90 4RF Protocol: Dose Management Condition: Thursday Dose/Route: 5 mg Instruction: 1 x 5 mg tablet Condition: Thursday Dose/Route: 7.5 mg Instruction: 1 x 7.5 mg tablet Condition: Thursday Dose/Route: 7.5 mg Instruction: 1 x 7.5 mg tablet Condition: Thursday Dose/Route: 7.5 mg Instruction: 1 x 7.5 mg tablet Condition: Dose/Route: 7.5 mg Instruction: 1 x 7.5 mg tablet Condition: Thursday Dose/Route: 7.5 mg Instruction: 1 x 7.5 mg tablet Condition: Thursday Dose/Route: 5 mg Instruction: 1 x 5 mg tablet Protocol Text: Adjustment Start Date: Thursday01/29/22 INR Value: 3.1 INR Date: 01/29/22 Recheck Date: 02/19/22 Rx Instructions: 5 mg PO take 1 tab by mouth daily or as directed; enoxaparin [Lovenox] 120 mg/0.8 mL syringe 120 mg subcut Q12H Qty: 8 0RF warfarin 7.5 mg tablet 7.5 mg PO .COMPLEX Qty: 90 3RF Protocol: Dose Management Condition: Thursday Dose/Route: 5 mg Instruction: 1 x 5 mg tablet Condition: Thursday Dose/Route: 7.5 mg Instruction: 1 x 7.5 mg tablet Condition: Thursday Dose/Route: 7.5 mg Instruction: 1 x 7.5 mg tablet Condition: Thursday Dose/Route: 7.5 mg Instruction: 1 x 7.5 mg tablet Condition: Dose/Route: 7.5 mg Instruction: 1 x 7.5 mg tablet Condition: Thursday Dose/Route: 7.5 mg Instruction: 1 x 7.5 mg tablet Condition: Thursday Dose/Route: 5 mg Instruction: 1 x 5 mg tablet Protocol Text: Adjustment Start Date: Thursday01/29/22 INR Value: 3.1 INR Date: 01/29/22 Recheck Date: 02/19/22 Rx Instructions: 7.5 mg orally Thursday through Thursday (takes a 2.5 mg tablet on Thursday and Thursday); or as directed for dose changes torsemide 20 mg tablet 40 mg PO DAILY Qty: 180 3RF potassium chloride [Klor-Con M20] 20 mEq tablet,ER particles/crystals 20 meq PO .COMPLEX Qty: 270 3RF Rx Instructions: 20 mEq orally 2 tablets in the morning and 1 tablet at suppertime; pravastatin 40 mg tablet 20 mg PO QHS Qty: 45 3RF Primary Care Provider: Vidhi Hooks Referrals: Marta Luna, [facility] [facility] [Vidhi Hooks [facility]] - 3-5 Days Disposition Disposition: Home, Self Care
[2022-02-13] MEDS: Ipratropium/Albuterol Sulfate 3 ML AMPUL.NEB INHALATION (08:04)
[2022-02-13 08:07] VITALS: PULSE 72; RESP 17; O2SAT 95
[2022-02-13] MEDS: 0.9% Normal Saline 1,000 ML 1000 ML IV (08:11)
[2022-02-13 08:18] LABS: Absolute Lymphocyte Count 1.37 X10^3/uL (0.83-4.51); Absolute Neutrophil Count 5.9 X10^3/uL (2.0-7.7); Basophil# 0.03 X10^3/uL; Basophil% 0.4 % (0-1); Eosinophils% 1.2 % (0-5); Hematocrit 42.1 % (37-47); Hemoglobin 13.7 g/dL (12.0-15.0); Lymphocyte # 1.37 X10^3/ul (0.83-4.51); Lymphocyte % 16.4 % (19-41); Mean Corp Hgb Conc 32.5 g/dL (32-36); Mean Corpuscular Hgb 30.6 pg (27.0-32.0); Mean Platelet Vol. 10.1 fl (6.2-12.0); Monocyte# 0.86 X10^3/uL; Monocyte% 10.3 % (0-10); NRBC Flagged by Analyzer 0 % (0-5); Neutrophil # 5.94 X10^3/uL (2.7-7.7); Neutrophil % 71.1 % (47-70); Platelet Count 236 K/mm3 (150-450); Red Blood Count 4.48 M/mm3 (4.2-5.4); White Blood Count 8.4 K/mm3 (4.4-11.0)
--- NOTE | 2022-02-13 08:25 | RAD_ITS ---
STUDY: X-RAY CHEST REASON FOR EXAM: Female, 61 years old. Cough TECHNIQUE: PA and lateral views of the chest. COMPARISON: Comparison is made with prior study 09/01/2021. FINDINGS: EKG electrodes are seen. Impression congestion and mild degree of CHF. There is no demonstrated pleural abnormality. Sternal cerclage wires are present from a prior sternotomy. The patient is status post mitral valve replacement. Cardiomegaly. Normal mediastinum and pauline. Normal visualized pulmonary arteries. There is atherosclerotic calcification of the aortic arch with tortuosity. There are diffuse degenerative changes of the visualized thoracic spine. Healed right-sided rib fractures. There is no demonstrated abnormality of the visualized soft tissue structures of the upper abdomen. RAD/Chest PA and Lateral IMPRESSION: Status post mitral valve replacement. Mild degree of CHF. Electronically Signed: Luis Boogie MD at 9:04 EST ,
[2022-02-13 08:36] LABS: ALB/GLOB Ratio 0.8 RATIO (0.9-2.4); AST(SGOT) 16 U/L (15-37); Alanine Aminotransfer ALT/SGPT 22 U/L (13-56); Albumin, Serum 3.2 g/dL (3.2-5.0); Alkaline Phosphatase 50 U/L (45-117); Anion Gap 6 (5-15); BUN 18 mg/dL (7-18); BUN/Creat Ratio 21.4 RATIO (10-20); Calcium,Total 9.2 mg/dL (8.5-10.1); Chloride 101 mmol/L (98-107); Creatinine, Serum 0.84 mg/dL (0.55-1.02); EST Glomerular Filtration Rate 73 mL/min (>60); Est Glom Filt Rate - Afr Amer 89 mL/min (>60); Estimated Creatinine Clearance 70.13 ml/min; Globulin 4.2 g/dL (2.2-4.2); Glucose 134 mg/dL (74-106); Potassium 4.1 mmol/L (3.5-5.1); Protein, Total 7.4 g/dL (6.4-8.2); Sodium Level 137 mmol/L (136-145)
[2022-02-13] MEDS: Acetaminophen 325 MG Tablet 1000 MG PO (09:04)
== END 2022-02-13 10:22 | disposition home or self-care (01) ==
PROVIDERS: Emergency Provider Emergency Medicine; Visit Provider Emergency Medicine
DX: J06.9 Acute upper respiratory infection, unspecified (principal); I11.0 Hypertensive heart disease with heart failure; I50.32 Chronic diastolic (congestive) heart failure; I27.21 Secondary pulmonary arterial hypertension; E66.01 Morbid (severe) obesity due to excess calories; G47.33 Obstructive sleep apnea (adult) (pediatric); E78.5 Hyperlipidemia, unspecified; Z79.899 Other long term (current) drug therapy; Z79.82 Long term (current) use of aspirin; Z79.01 Long term (current) use of anticoagulants; Z79.84 Long term (current) use of oral hypoglycemic drugs
CPT/HCPCS: 71046; 80053; 85025; 87428; 87880; 94640; 96360; 99284; J7030; A4216

== ENCOUNTER 2022-04-04 14:08 | Outpatient (RCR) | payer MEDICAID, SELFPAY ==
[2022-02-04 09:44] VITALS: BMI 39.5
[2022-03-18 10:01] LABS: International Normalized Ratio 2.9; Prothrombin Time (Protime)PT. 30.3 SECONDS (11.7-14.9)
[2022-04-04 14:50] LABS: Prothrombin Time (Protime)PT. 40.1 SECONDS (11.7-14.9)
[2022-04-04 15:40] LABS: International Normalized Ratio 4.2
== END 2022-04-04 18:00 | disposition home or self-care (01) ==
LOC: LAB 14:08
PROVIDERS: PCP Nurse Practitioner Adult Health; Referring Provider Internal Medicine Cardiovascular Disease; Visit Provider Internal Medicine Cardiovascular Disease
DX: Z95.2 Presence of prosthetic heart valve (principal); Z79.01 Long term (current) use of anticoagulants
CPT/HCPCS: 36415; 85610

== ENCOUNTER 2022-04-15 08:37 | Outpatient (RCR) | payer MEDICAID, SELFPAY ==
[2022-04-06 05:48] VITALS: BMI 39.5
[2022-04-15 09:34] LABS: International Normalized Ratio 2.9; Prothrombin Time (Protime)PT. 30.2 SECONDS (11.7-14.9)
== END 2022-04-15 18:00 | disposition home or self-care (01) ==
LOC: LAB 08:37
PROVIDERS: Referring Provider Internal Medicine Cardiovascular Disease; Visit Provider Internal Medicine Cardiovascular Disease
DX: Z95.2 Presence of prosthetic heart valve (principal); Z79.01 Long term (current) use of anticoagulants
CPT/HCPCS: 36415; 85610

== ENCOUNTER 2022-05-12 20:05 | Emergency (ER) | payer MEDICAID, SELFPAY ==
[2022-05-12 20:06] VITALS: BP 146/81; PULSE 67; RESP 16; TEMP 36; O2SAT 98; BMI 38.5
== END 2022-05-12 21:26 | disposition left against medical advice (07) ==
LOC: ED 21:27
DX: R11.2 Nausea with vomiting, unspecified (principal)

== ENCOUNTER 2022-05-13 06:09 | Emergency (ER) | payer MEDICAID, SELFPAY ==
[2022-05-13 06:10] VITALS: BP 137/68; PULSE 60; RESP 18; TEMP 35.6; O2SAT 96; BMI 38.7
[2022-05-13 06:13] VITALS: BP 137/68; PULSE 60; RESP 18; TEMP 35.6; O2SAT 96
--- NOTE | 2022-05-13 06:37 | EDS_ITS ---
HPI HPI - GI History of Present Illness Chief Complaint: Diarrhea Informant: patient Nausea/Vomiting/Emesis GI Symptom: Positive for Nausea and Vomiting Onset: Days (2-3) Severity: Moderate Diarrhea/Melena/Hematochezia GI Symptom: Positive for Diarrhea; Negative for Melena or Hematochezia Onset: Days (2-3) Stool Quality: Positive for Watery Severity: Severe Associated Symptoms Associated Symptoms: Negative for Dysuria, Frequency, Hematuria or Urgency Narrative Narrative: 61-year-old female presenting with nausea vomiting and diarrhea for several days, subjective fevers and chills at times, she feels dehydrated. She has been having no abdominal pain. No travel out of the area or recent suspicious food intake/seafood. She is on Coumadin because of mechanical heart valves, she has had no blood in emesis or diarrhea. The diarrhea has been more significant. More than 10 bouts per day. She was vomiting, that is better now and she has no nausea right now, nor abdominal pain. She has had no near syncope or syncope. She has had several family members recently with similar symptoms that are getting better. She did have a couple of episodes of muscle cramping all over her body, but no abdominal cramping. [facility] Medical History Allergic rhinitis Anxiety Asthma Cancer Chronic diastolic (congestive) heart failure Congenital subaortic stenosis of membranous type COVID-19 (05/01/21) CPAP (continuous positive airway pressure) dependence Cutaneous abscess Endometrial cancer Essential (primary) hypertension History of bacterial endocarditis HLD (hyperlipidemia) Hypertension Left bundle branch block Morbid obesity Narcolepsy Nonrheumatic aortic (valve) stenosis with insufficiency Nonrheumatic mitral valve insufficiency Obesity Obstructive sleep apnea On home oxygen therapy Positive GBS test Psoriasis Secondary pulmonary arterial hypertension Streptococcal septicemia Subvalvar aortic stenosis Wears dentures Wears glasses Home Medications aspirin 81 mg chewable tablet 81 mg PO DAILY@1999 HEART [facility] 05/30/16 [History Last Taken 07/10/20] multivitamin with folic acid 400 mcg tablet 1 tab PO DAILY SUPPLEMETN 05/30/16 [History Last Taken 07/10/20] metformin 500 mg tablet 250 mg PO DAILY DM 08/16/19 [History Last Taken 07/10/20] melatonin 5 mg capsule 5 mg PO QHS SLEEP 05/21/20 [History Last Taken 07/09/20] omeprazole 40 mg capsule,delayed release 40 mg PO DAILY GERD 05/21/20 [History Last Taken 02/04/21] acetaminophen 500 mg tablet (Tylenol Extra Strength) 1,000 mg PO DAILY 11/08/20 [History Last Taken Unknown] cholecalciferol (vitamin D3) 1,250 mcg (50,000 unit) capsule 1,250 mcg PO QWEEK supplement 11/08/20 [History Last Taken 08/26/21] duloxetine 60 mg capsule,delayed release (Cymbalta) 120 mg PO DAILY 11/08/20 [History Last Taken 09/01/21 10:00] warfarin 5 mg tablet 2.5 mg PO DAILY 11/22/20 [History Last Taken 01/31/21] metoprolol tartrate 25 mg tablet 25 mg PO BID HEART #180 tabs 12/11/20 [Rx Last Taken 02/04/21] diphenhydramine HCl 25 mg capsule (Benadryl) 25 mg PO QHS 01/30/21 [History Last Taken Unknown] warfarin 5 mg tablet 5 mg PO .COMPLEX #90 tabs 08/27/21 [Rx Last Taken Unknown] benzonatate 200 mg capsule 200 mg PO TID PRN cough #90 caps 08/30/21 [Rx Last Taken Unknown] doxycycline hyclate 150 mg tablet 100 mg PO BID 08/30/21 [History Last Taken 08/31/21 20:00] prednisone 20 mg tablet 20 mg PO UD #18 tabs 09/02/21 [Rx Last Taken Unknown] enoxaparin 120 mg/0.8 mL subcutaneous syringe (Lovenox) 120 mg (0.8 mL) subcut Q12H #8 mL 09/06/21 [Rx Last Taken Unknown] torsemide 20 mg tablet 40 mg PO DAILY FLUID #180 tabs 11/18/21 [Rx Last Taken Unknown] warfarin 7.5 mg tablet 7.5 mg PO .COMPLEX #90 tabs 11/18/21 [Rx Last Taken Unknown] potassium chloride 20 mEq tablet,extended release(part/cryst) (Klor-Con M) 20 meq PO .COMPLEX this RX is for dose correction #270 tabs 12/06/21 [Rx Last Taken Unknown] pravastatin 40 mg tablet 20 mg PO QHS CHOLESTEROL #45 tabs 01/01/22 [Rx Last Taken Unknown] albuterol sulfate 90 mcg/actuation aerosol inhaler (Ventolin HFA) 2 puff inhalation Q4H PRN shortness of breath or wheezing #8.5 grams 01/15/22 [Rx Last Taken Unknown] budesonide-formoterol HFA 160 mcg-4.5 mcg/actuation aerosol inhaler (Symbicort) 2 puff inhalation BID #10.2 grams 01/15/22 [Rx Last Taken Unknown] fluticasone propionate 50 mcg/actuation nasal spray,suspension (Flonase Allergy Relief) 2 spray intranasal QDAY #1 device 01/15/22 [Rx Last Taken Unknown] guaifenesin 1,200 mg tablet, extended release 12 hr 1,200 mg PO Q12H #60 tabs 01/15/22 [Rx Last Taken Unknown] ipratropium 0.5 mg-albuterol 3 mg (2.5 mg base)/3 mL nebulization soln 3 ml inhalation Q4H PRN PRN SOB &/OR WHEEZING #180 mL 01/15/22 [Rx Last Taken Unknown] loratadine 10 mg tablet 10 mg PO DAILY ALLERGIES #90 tabs 01/15/22 [Rx Last Taken Unknown] montelukast 10 mg tablet 10 mg PO DINNER #90 tabs 01/15/22 [Rx Last Taken Unknown] gabapentin 100 mg capsule 100 mg PO BID 02/04/22 [History Last Taken Unknown] gabapentin 100 mg capsule 300 mg PO QHS 02/04/22 [History Last Taken Unknown] Allergy/AdvReac Type Severity Reaction Status Date / Time clarithromycin [From Biaxin] Allergy Severe SOB, hives Verified 02/04/22 11:20 and swelling cephalexin [Cephalexin] Allergy Rash Verified 02/04/22 11:20 simvastatin Allergy Rash Verified 02/04/22 11:20 sulfamethoxazole Allergy Rash Verified 02/04/22 11:20 trimethoprim Allergy Rash/leg Verified 02/04/22 11:20 swelling bupropion AdvReac Severe worsened Verified 02/04/22 11:20 depression adhesive tape AdvReac Itching Verified 02/04/22 11:20 ciprofloxacin AdvReac Itching Verified 02/04/22 11:20 Macrolide Antibiotics AdvReac Unknown Verified 02/04/22 11:20 Penicillins AdvReac Unknown Verified 02/04/22 11:20 Family History Father CAD (coronary artery disease) Hypertension Mother , age 55 Sudden cardiac Hypertension Abdominal aortic aneurysm rupture Brother Hypertension Sister Hypertension Surgical History H/O bilateral salpingo-oophorectomy (01/2020) History of mechanical aortic valve replacement (05/13/16) History of mitral valve replacement with mechanical valve (05/13/16) History of robot-assisted laparoscopic hysterectomy (01/2020) History of tubal ligation HX venous access device placed Resection of subaortic membrane (2002) Social History household members: spouse number of children: 4 current occupational status: unemployed history of recent travel: No sexually active: Yes Smoking Status: Never smoker alcohol intake: never substance use type: does not use diet: low carbohydrate caffeine: No what type of physical activity do you participate in: walking seatbelt use: always do you feel safe at home: Yes additional social history: - Dylan DAIGLE ROS ED Constitutional Constitutional ED: Reports chills, fever(s), malaise and subjective Eyes Eyes: Denies change in vision or diplopia ENT ENT ED: Denies rhinorrhea or sore throat Cardiovascular Cardiovascular: Denies chest pain or palpitations Respiratory/Chest Respiratory/Chest: Denies cough or dyspnea Gastrointestinal Gastrointestinal: Reports diarrhea, nausea and vomiting; Denies abdominal pain, hematemesis, hematochezia or melena Genitourinary Genitourinary ED: Denies dysuria or hematuria Musculoskeletal Musculoskeletal: Reports as per HPI, muscle cramps and muscle spasms; Denies back pain or neck pain Integumentary Denies abscess or rash Neurologic Neurologic: Denies headache(s), paresthesias or weakness Psychiatric Psychiatric: Denies anxiety or suicidal thoughts EXAM Physical Exam Const Vital Signs: 05/13/22 06:10 05/13/22 06:13 05/13/22 08:31 Temperature 96.0 F L 96.0 F L Temperature Source Temporal Temporal Pulse Rate 60 60 60 Respiratory Rate 18 18 16 Blood Pressure 137/68 H 137/68 H 117/66 Blood Pressure Mean 91 91 83 Pulse Ox 96 96 97 Oxygen Delivery Method Room Air Room Air Room Air Positive well nourished, well developed and obese General Appearance ED: well developed and NAD Nutritional Appearance: obese HEENT Reports moist mucous membranes normocephalic and atraumatic Eyes PERRL and EOMs intact bilaterally Neck full ROM and supple Resp normal respiratory effort and clear to auscultation bilaterally Cardio regular rate, regular rhythm and no murmurs GI non-tender and non-distended Auscultation: hyperactive bowel sounds Palpation: soft Back/Spine no CVA tenderness General Back: other FROM Extremity normal to inspection General Extremety ED: Negative for edema, pulses abnormal or tenderness General Extremity: Negative for edema or pulses abnormal Neuro oriented x3, CN's II-XII intact bilaterally, no sensory deficits noted and gait normal Sensorium / Orientation: awake and alert Motor Exam: strength 5/5 throughout Skin no rashes or lesions noted and no wounds MDM MDM MDM Narrative Medical decision making narrative: Likely viral gastroenteritis. She has been taking Zofran at home on occasion for the nausea which has been helping and overnight has done pretty well with regards to that but the diarrhea was more the issue. She is taking an antidiarrheal on occasion and it was helping some with the diarrhea but then when it would come back she would have a lot of it. Basic labs were obtained and were checked for electrolyte disorders, and in the meantime she was given a liter of IV fluids. I reviewed her labs, her potassium is low, and she is on oral potassium supplementation already. I gave her a dose of 40 mEq orally in addition to an IV 10 mEq rider. She is doing better. She will be discharged when that is finished, she was advised that she does not have to take her oral potassium this morning that she usually takes since we gave her a bigger dose, supportive care advised, her INR returned therapeutic at 2.5. Lab Data Attestation: I reviewed the patient's lab results. Labs: Laboratory Results - last 24 hr 05/13/22 05/13/22 05/13/22 06:44 06:44 06:44 WBC 5.9 RBC 4.38 Hgb 13.4 Hct 41.7 MCV 95.2 MCH 30.6 MCHC 32.1 RDW Std Deviation 49.3 H RDW Coeff of Ham 14.1 Plt Count 175 MPV 11.2 Immature Gran % (Auto) 0.300 Neut % (Auto) 55.5 Lymph % (Auto) 29.6 [place] % (Auto) 11.9 H Eos % (Auto) 2.4 Baso % (Auto) 0.3 Absolute Neuts (auto) 3.3 Absolute Lymphs (auto) 1.74 Nucleated RBC % 0.3 Plt Morphology Comment CLUMPED PT Cancelled INR Cancelled Sodium Cancelled Potassium Cancelled Chloride Cancelled Carbon Dioxide Cancelled Anion Gap Cancelled BUN Cancelled Creatinine Cancelled Estim Creat Clear Calc Cancelled Est GFR (MDRD) Af Amer Cancelled Est GFR (MDRD) Non-Af Cancelled BUN/Creatinine Ratio Cancelled Glucose Cancelled Calcium Cancelled 05/13/22 05/13/22 07:30 07:30 WBC RBC Hgb Hct MCV MCH MCHC RDW Std Deviation RDW Coeff of Ham Plt Count MPV Immature Gran % (Auto) Neut % (Auto) Lymph % (Auto) [place] % (Auto) Eos % (Auto) Baso % (Auto) Absolute Neuts (auto) Absolute Lymphs (auto) Nucleated RBC % Plt Morphology Comment PT 26.7 H INR 2.5 Sodium 139 Potassium 3.1 L Chloride 103 Carbon Dioxide 29.0 Anion Gap 7 BUN 15 Creatinine 0.83 Estim Creat Clear Calc 70.97 Est GFR (MDRD) Af Amer 90 Est GFR (MDRD) Non-Af 74 BUN/Creatinine Ratio 18.0 Glucose 110 H Calcium 7.7 L Discharge Plan Triage Chief Complaint: Diarrhea ED Provider: Jax Torres Dx/Rx/DC Orders Clinical Impression: Viral gastroenteritis, Warfarin-induced coagulopathy, Mild dehydration, Hypokalemia due to excessive gastrointestinal loss of potassium Instructions: Viral Gastroenteritis Prescriptions: No Action duloxetine [Cymbalta] 60 mg capsule,delayed release(DR/EC) 120 mg PO DAILY metformin 500 mg tablet 250 mg PO DAILY metoprolol tartrate 25 mg tablet 25 mg PO BID Qty: 180 3RF acetaminophen [Tylenol Extra Strength] 500 mg tablet 1,000 mg PO DAILY doxycycline hyclate 150 mg tablet 100 mg PO BID Rx Instructions: HAS TAKEN 4 DAYS WORTH OF MEDS. benzonatate 200 mg capsule 200 mg PO TID PRN (Reason: cough) Qty: 90 0RF albuterol sulfate [Ventolin HFA] 90 mcg/actuation HFA aerosol inhaler 2 puff INHALATION Q4H PRN (Reason: shortness of breath or wheezing) Qty: 8.5 6RF budesonide-formoterol [Symbicort] 160-4.5 mcg/actuation HFA aerosol inhaler 2 puff inhalation BID Qty: 10.2 6RF fluticasone propionate [Flonase Allergy Relief] 50 mcg/actuation spray,suspension 2 spray INTRANASAL QDAY Qty: 1 3RF Rx Instructions: administer into each nostril guaifenesin 1,200 mg tablet extended release 12hr 1,200 mg PO Q12H Qty: 60 6RF ipratropium-albuterol 0.5 mg-3 mg(2.5 mg base)/3 mL solution for nebulization 3 ml inhalation Q4H PRN PRN (Reason: SOB &/OR WHEEZING) Qty: 180 6RF loratadine 10 mg tablet 10 mg PO DAILY Qty: 90 3RF montelukast 10 mg tablet 10 mg PO DINNER Qty: 90 3RF gabapentin 100 mg capsule 100 mg PO BID gabapentin 100 mg capsule 300 mg PO QHS aspirin 81 MG tablet,chewable 81 mg PO DAILY@2000 multivitamin with folic acid 1 TABLET tablet 1 tab PO DAILY omeprazole 40 MG capsule,delayed release(DR/EC) 40 mg PO DAILY melatonin 5 MG capsule 5 mg PO QHS cholecalciferol (vitamin D3) 1,250 mcg (50,000 unit) capsule 1,250 mcg PO QWEEK Label Comments: TAKE 1 CAPSULE BY MOUTH ONCE A WEEK diphenhydramine HCl [Benadryl] 25 MG capsule 25 mg PO QHS prednisone 20 mg tablet 20 mg PO UD Qty: 18 0RF Rx Instructions: one twice a day for 4 days, then one and a half daily for 4 days, then one daily for 4 days, then stop- start on 09/03/21 warfarin 5 mg tablet 2.5 mg PO DAILY Protocol: Dose Management Condition: Thursday Dose/Route: 5 mg Instruction: 1 x 5 mg tablet Condition: Thursday Dose/Route: 5 mg Instruction: 1 x 5 mg tablet Condition: Thursday Dose/Route: 7.5 mg Instruction: 1 x 7.5 mg tablet Condition: Thursday Dose/Route: 7.5 mg Instruction: 1 x 7.5 mg tablet Condition: Dose/Route: 7.5 mg Instruction: 1 x 7.5 mg tablet Condition: Thursday Dose/Route: 5 mg Instruction: 1 x 5 mg tablet Condition: Thursday Dose/Route: 5 mg Instruction: 1 x 5 mg tablet Protocol Text: Adjustment Start Date: Thursday04/15/22 INR Value: 2.9 INR Date: 04/15/22 Recheck Date: 05/06/22 Rx Instructions: THURSDAY AND THURSDAY AND THURSDAY warfarin 5 mg tablet 5 mg PO .COMPLEX Qty: 90 4RF Protocol: Dose Management Condition: Thursday Dose/Route: 5 mg Instruction: 1 x 5 mg tablet Condition: Thursday Dose/Route: 5 mg Instruction: 1 x 5 mg tablet Condition: Thursday Dose/Route: 7.5 mg Instruction: 1 x 7.5 mg tablet Condition: Thursday Dose/Route: 7.5 mg Instruction: 1 x 7.5 mg tablet Condition: Dose/Route: 7.5 mg Instruction: 1 x 7.5 mg tablet Condition: Thursday Dose/Route: 5 mg Instruction: 1 x 5 mg tablet Condition: Thursday Dose/Route: 5 mg Instruction: 1 x 5 mg tablet Protocol Text: Adjustment Start Date: Thursday04/15/22 INR Value: 2.9 INR Date: 04/15/22 Recheck Date: 05/06/22 Rx Instructions: 5 mg PO take 1 tab by mouth daily or as directed; enoxaparin [Lovenox] 120 mg/0.8 mL syringe 120 mg subcut Q12H Qty: 8 0RF warfarin 7.5 mg tablet 7.5 mg PO .COMPLEX Qty: 90 3RF Protocol: Dose Management Condition: Thursday Dose/Route: 5 mg Instruction: 1 x 5 mg tablet Condition: Thursday Dose/Route: 5 mg Instruction: 1 x 5 mg tablet Condition: Thursday Dose/Route: 7.5 mg Instruction: 1 x 7.5 mg tablet Condition: Thursday Dose/Route: 7.5 mg Instruction: 1 x 7.5 mg tablet Condition: Dose/Route: 7.5 mg Instruction: 1 x 7.5 mg tablet Condition: Thursday Dose/Route: 5 mg Instruction: 1 x 5 mg tablet Condition: Thursday Dose/Route: 5 mg Instruction: 1 x 5 mg tablet Protocol Text: Adjustment Start Date: Thursday04/15/22 INR Value: 2.9 INR Date: 04/15/22 Recheck Date: 05/06/22 Rx Instructions: 7.5 mg orally Thursday through Thursday (takes a 2.5 mg tablet on Thursday and Thursday); or as directed for dose changes torsemide 20 mg tablet 40 mg PO DAILY Qty: 180 3RF potassium chloride [Klor-Con M20] 20 mEq tablet,ER particles/crystals 20 meq PO .COMPLEX Qty: 270 3RF Rx Instructions: 20 mEq orally 2 tablets in the morning and 1 tablet at suppertime; pravastatin 40 mg tablet 20 mg PO QHS Qty: 45 3RF Primary Care Provider: Vidhi Hooks Referrals: Vidhi Hooks [Primary Care Provider] - 3-5 Days if not improving Disposition Disposition: Home, Self Care
[2022-05-13] MEDS: 0.9% Normal Saline 1,000 ML 999 ML IV (06:48)
[2022-05-13 06:53] LABS: Absolute Lymphocyte Count 1.74 X10^3/uL (0.83-4.51); Absolute Neutrophil Count 3.3 X10^3/uL (2.0-7.7); Basophil# 0.02 X10^3/uL; Basophil% 0.3 % (0-1); Eosinophil# 0.14 X10^3/uL; Eosinophils% 2.4 % (0-5); Hematocrit 41.7 % (37-47); Hemoglobin 13.4 g/dL (12.0-15.0); Lymphocyte # 1.74 X10^3/ul (0.83-4.51); Lymphocyte % 29.6 % (19-41); Mean Corp Hgb Conc 32.1 g/dL (32-36); Mean Corpuscular Hgb 30.6 pg (27.0-32.0); Mean Corpuscular Volume 95.2 fL (81-99); Mean Platelet Vol. 11.2 fl (6.2-12.0); Monocyte% 11.9 % (0-10); NRBC Flagged by Analyzer 0.3 % (0-5); Neutrophil # 3.26 X10^3/uL (2.7-7.7); Neutrophil % 55.5 % (47-70); POSITIVE COUNT YES; Platelet Count 175 K/mm3 (150-450); RBC Distribution Width CV 14.1 % (11.6-14.6); RBC Distribution Width SD 49.3 fl (35.1-43.9); Red Blood Count 4.38 M/mm3 (4.2-5.4); White Blood Count 5.9 K/mm3 (4.4-11.0)
[2022-05-13 06:58] LABS: Differential Indicated SCAN CRITERIA MET
[2022-05-13 07:09] LABS: Platelet Morphology CLUMPED
[2022-05-13 07:55] LABS: Anion Gap 7 (5-15); BUN 15 mg/dL (7-18); Calcium,Total 7.7 mg/dL (8.5-10.1); Chloride 103 mmol/L (98-107); Creatinine, Serum 0.83 mg/dL (0.55-1.02); EST Glomerular Filtration Rate 74 mL/min (>60); Est Glom Filt Rate - Afr Amer 90 mL/min (>60); Estimated Creatinine Clearance 70.97 ml/min; Glucose 110 mg/dL (74-106); Potassium 3.1 mmol/L (3.5-5.1); Sodium Level 139 mmol/L (136-145)
[2022-05-13 08:09] LABS: International Normalized Ratio 2.5; Prothrombin Time (Protime)PT. 26.7 SECONDS (11.7-14.9)
[2022-05-13] MEDS: Potassium Chloride 10mEq/100mL 10 MEQ/100 ML IV.SOLN. 100 MEQ IV BOLUS (08:29)
[2022-05-13] MEDS: Potassium Chloride Oral Tablet 20 MEQ 40 MEQ PO (08:29)
[2022-05-13] MEDS: 0.9% Normal Saline 1,000 ML 150 ML IV (08:29)
[2022-05-13 08:31] VITALS: BP 117/66; PULSE 60; RESP 16; O2SAT 97
[2022-05-13 09:54] VITALS: BP 136/57; PULSE 60; RESP 18; O2SAT 99
== END 2022-05-13 09:55 | disposition home or self-care (01) ==
PROVIDERS: Emergency Provider Emergency Medicine; Visit Provider Emergency Medicine
DX: A08.4 Viral intestinal infection, unspecified (principal); I11.0 Hypertensive heart disease with heart failure; I50.32 Chronic diastolic (congestive) heart failure; E66.9 Obesity, unspecified; E86.0 Dehydration; E87.6 Hypokalemia; E78.5 Hyperlipidemia, unspecified; R11.2 Nausea with vomiting, unspecified; Z79.01 Long term (current) use of anticoagulants
CPT/HCPCS: 36415; 80048; 85025; 85610; 96365; 96366; 99285; J7030; A4216

== ENCOUNTER → 2022-06-24 | Outpatient (CLI) | payer MEDICAID, SELFPAY ==
--- NOTE | 2022-06-24 12:28 | BI_ITS ---
MAMMOGRAPHY - BILATERAL SCREENING REASON FOR EXAM: Female, 62 years old. Routine annual screening examination. PERTINENT HISTORY: Non-contributory. TECHNIQUE: Digital bilateral breast margareth (3D mammographic acquisition) in the CC and MLO projections. 2-D mediolateral oblique (MLO) and craniocaudad (CC) views of both breasts were obtained. CAD: Full Field Digital Mammography with Computer Added Detection was performed. COMPARISON: Comparison is made with prior study dated October 26, 2020 and January 29, 2020. FINDINGS: Breast Composition: The breasts are almost entirely fatty. There are no dominant masses or suspicious calcifications. Stable small benign-appearing bilateral axillary lymph nodes. No other significant abnormalities are identified. There has been no significant change since the prior study. BI/SCRN MAMM (CAD)W/MARGARETH BILAT IMPRESSION: Stable bilateral screening mammogram. Yearly follow-up mammogram recommended. (A) ASSESSMENT CATEGORY: BIRADS Category 2: Benign. A letter regarding these results will be sent to the patient by the facility within 30 days. Approximately 10% of breast cancers are not detected by mammography. A normal mammogram should not delay biopsy of a clinically suspicious abnormality. [id number] Electronically Signed: Luis Boogie MD at 14:01 EDT ,
== END | disposition home or self-care (01) ==
LOC: OPBI 12:26
PROVIDERS: Referring Provider Nurse Practitioner Women's Health; Visit Provider Nurse Practitioner Women's Health
DX: Z12.31 Encounter for screening mammogram for malignant neoplasm of breast (principal)
CPT/HCPCS: 77063; 77067

== ENCOUNTER 2022-07-15 08:44 | Outpatient (RCR) | payer MEDICAID, SELFPAY ==
[2022-05-07 07:32] VITALS: BMI 39.5
[2022-07-15 10:36] LABS: International Normalized Ratio 2.8
== END 2022-08-03 01:37 | disposition home or self-care (01) ==
LOC: LAB 08:44
PROVIDERS: Referring Provider Internal Medicine Cardiovascular Disease; Visit Provider Internal Medicine Cardiovascular Disease
DX: Z95.2 Presence of prosthetic heart valve (principal); Z79.01 Long term (current) use of anticoagulants; I48.0 Paroxysmal atrial fibrillation
CPT/HCPCS: 36415; 85610

== ENCOUNTER 2022-09-30 09:32 | Outpatient (RCR) | payer MEDICAID, SELFPAY ==
[2022-08-03 01:37] VITALS: BMI 39.5
[2022-09-05 10:08] LABS: International Normalized Ratio 3.4; Prothrombin Time (Protime)PT. 34.9 SECONDS (11.7-14.9)
[2022-09-23 13:24] LABS: Prothrombin Time (Protime)PT. 23.1 SECONDS (11.7-14.9)
[2022-09-30 10:49] LABS: International Normalized Ratio 2.4; Prothrombin Time (Protime)PT. 26.8 SECONDS (11.7-14.9)
== END 2022-09-30 18:00 | disposition home or self-care (01) ==
LOC: LAB 09:32
PROVIDERS: Referring Provider Internal Medicine Cardiovascular Disease; Visit Provider Internal Medicine Cardiovascular Disease
DX: Z95.2 Presence of prosthetic heart valve (principal); Z79.01 Long term (current) use of anticoagulants
CPT/HCPCS: 36415; 85610

== ENCOUNTER 2022-10-28 10:55 | Outpatient (RCR) | payer MEDICAID, SELFPAY ==
[2022-10-04 02:14] VITALS: BMI 39.5
[2022-10-08 14:28] LABS: International Normalized Ratio 2.7
[2022-10-28 11:39] LABS: International Normalized Ratio 2.5
== END 2022-11-03 18:00 | disposition home or self-care (01) ==
LOC: LAB 10:55
PROVIDERS: Referring Provider Internal Medicine Cardiovascular Disease; Visit Provider Internal Medicine Cardiovascular Disease
DX: Z95.2 Presence of prosthetic heart valve (principal); Z79.01 Long term (current) use of anticoagulants
CPT/HCPCS: 36415; 85610

== ENCOUNTER → 2022-11-14 | Outpatient (CLI) | payer MEDICAID, SELFPAY ==
[2022-11-14 09:22] LABS: Anion Gap 4 (5-15); BUN 17 mg/dL (7-18); BUN/Creat Ratio 21.4 RATIO (10-20); Calcium,Total 8.6 mg/dL (8.5-10.1); Chloride 99 mmol/L (98-107); Creatinine, Serum 0.79 mg/dL (0.55-1.02); EST Glomerular Filtration Rate 78 mL/min (>60); Est Glom Filt Rate - Afr Amer 95 mL/min (>60); Glucose 130 mg/dL (74-106); Potassium 3.3 mmol/L (3.5-5.1); Sodium Level 139 mmol/L (136-145)
== END | disposition home or self-care (01) ==
PROVIDERS: Referring Provider Nurse Practitioner Gerontology; Visit Provider Nurse Practitioner Gerontology
DX: E87.6 Hypokalemia (principal)
CPT/HCPCS: 36415; 80048

== ENCOUNTER 2022-11-20 07:19 | Outpatient (RCR) | payer MEDICAID, SELFPAY ==
[2022-11-04 02:00] VITALS: BMI 39.5
[2022-11-06 07:34] LABS: Absolute Lymphocyte Count 2.24 X10^3/uL (0.83-4.51); Absolute Neutrophil Count 2.9 X10^3/uL (2.0-7.7); Basophil# 0.02 X10^3/uL; Basophil% 0.3 % (0-1); Eosinophil# 0.12 X10^3/uL; Eosinophils% 2.1 % (0-5); Hematocrit 39.8 % (37-47); Lymphocyte # 2.24 X10^3/ul (0.83-4.51); Lymphocyte % 38.4 % (19-41); Mean Corp Hgb Conc 32.7 g/dL (32-36); Mean Corpuscular Hgb 31.1 pg (27.0-32.0); Mean Corpuscular Volume 95.2 fL (81-99); Mean Platelet Vol. 10.4 fl (6.2-12.0); Monocyte# 0.59 X10^3/uL; Monocyte% 10.1 % (0-10); NRBC Flagged by Analyzer 0 % (0-5); Neutrophil # 2.85 X10^3/uL (2.7-7.7); Neutrophil % 48.8 % (47-70); Platelet Count 196 K/mm3 (150-450); RBC Distribution Width CV 14.1 % (11.6-14.6); RBC Distribution Width SD 49.1 fl (35.1-43.9); Red Blood Count 4.18 M/mm3 (4.2-5.4); White Blood Count 5.8 K/mm3 (4.4-11.0)
[2022-11-06 08:03] LABS: AST(SGOT) 19 U/L (15-37); Alanine Aminotransfer ALT/SGPT 22 U/L (13-56); Albumin, Serum 3.2 g/dL (3.2-5.0); Alkaline Phosphatase 52 U/L (45-117); Anion Gap 3 (5-15); BUN 19 mg/dL (7-18); BUN/Creat Ratio 23.7 RATIO (10-20); Bilirubin, Direct 0.22 mg/dL (0.00-0.30); Calcium,Total 8.9 mg/dL (8.5-10.1); Chloride 104 mmol/L (98-107); Cholesterol 190 mg/dL (200); EST Glomerular Filtration Rate 77 mL/min (>60); Est Glom Filt Rate - Afr Amer 94 mL/min (>60); Globulin 3.9 g/dL (2.2-4.2); Glucose 135 mg/dL (74-106); High Density Lipoprotein 38 mg/dL; Potassium 3.8 mmol/L (3.5-5.1); Protein, Total 7.1 g/dL (6.4-8.2); Sodium Level 138 mmol/L (136-145); Triglycerides 162 mg/dL; Very Low Density Lipoprotein 32 mg/dL (5-40)
[2022-11-06 08:04] LABS: BNP,B-Type NATRIURETIC PEPTIDE 165.5 pg/mL (0-100)
[2022-11-06 08:12] LABS: International Normalized Ratio 2.6; Prothrombin Time (Protime)PT. 27.9 SECONDS (11.7-14.9)
[2022-11-20 08:16] LABS: Anion Gap 6 (5-15); BUN 17 mg/dL (7-18); BUN/Creat Ratio 19.6 RATIO (10-20); Calcium,Total 8.7 mg/dL (8.5-10.1); Chloride 103 mmol/L (98-107); Creatinine, Serum 0.87 mg/dL (0.55-1.02); EST Glomerular Filtration Rate 71 mL/min (>60); Est Glom Filt Rate - Afr Amer 86 mL/min (>60); Glucose 155 mg/dL (74-106); Potassium 3.9 mmol/L (3.5-5.1); Sodium Level 139 mmol/L (136-145)
[2022-11-20 08:21] LABS: International Normalized Ratio 2.4; Prothrombin Time (Protime)PT. 26.6 SECONDS (11.7-14.9)
== END 2022-11-20 18:00 | disposition home or self-care (01) ==
LOC: LAB 07:19
PROVIDERS: Nurse Practitioner Gerontology; Referring Provider Internal Medicine Cardiovascular Disease; Visit Provider Internal Medicine Cardiovascular Disease
DX: Z95.2 Presence of prosthetic heart valve (principal); Z79.01 Long term (current) use of anticoagulants; I48.0 Paroxysmal atrial fibrillation
CPT/HCPCS: 36415; 80048; 80061; 80076; 83880; 85025; 85610

== ENCOUNTER → 2022-12-03 | Outpatient (CLI) | payer MEDICAID, SELFPAY ==
--- NOTE | 2022-12-03 09:58 | ECHOCS_ITS ---
Reason For Study: Dyspnea/SOB Procedure This was a 2D Doppler, Color Flow transthoracic echocardiogram. The study was technically difficult. Contrast injection was performed. Exam performed in department. Left Ventricle Normal LV size. Moderate concentric left ventricular hypertrophy. Left ventricular systolic function is normal. No regional wall motion abnormalities noted. Right Ventricle Normal RV size. Normal systolic function. Atria The left atrium is moderately enlarged. Normal right atrium. Mitral Valve Mean transmitral valve gradient 4.5 mmHg. Stable appearing mechanical mitral valve apparatus. Tricuspid Valve Normal tricuspid valve. Mild to moderate (1-2+) tricuspid valve insufficiency. Pulmonary artery systolic pressure is 50 mmHg. Aortic Valve Peak aortic valve gradient 40 mmHg. Mean aortic valve gradient 20 mmHg. Bileaflet mechanical aortic valve. Pulmonic Valve The pulmonic valve is not well visualized. Great Vessels Normal aortic root. The pulmonary artery is normal size. Normal inferior vena cava. Pericardium/Pleural No pericardial effusion. Medication 22 gauge I.V. with prn adaptor inserted into right arm. Diluted definity 1.5ml given slow IV push to enhance endocardial definition. MMode/2D Measurements & Calculations LVIDd: 4.6 cm IVSd: 1.6 cm LVOT diam: 1.4 cm LVIDs: 3.2 cm LVPWd: 1.3 cm FS: 30.7 % LVOT area: 1.6 cm2 Ao root diam: 2.5 cm LAV(MOD-sp4): 83.6 ml LA A4 area: 25.8 cm2 LA dimension: 5.1 cm TAPSE: 2.0 cm Doppler Measurements & Calculations Lat Peak E' Ej: 9.2 cm/sec Med Peak E' Ej: 6.6 cm/sec MV V2 max: 213.1 cm/sec MV max P.2 mmHg MV V2 mean: 87.2 cm/sec MV mean P.5 mmHg MV V2 VTI: 41.7 cm MVA(VTI): 1.1 cm2 MV P1/2t max ej: 218.9 cm/sec Ao V2 max: 316.6 cm/sec LV V1 max: 123.5 cm/sec MV P1/2t: 59.0 msec Ao max P.3 mmHg LV V1 max P.1 mmHg Ao V2 mean: 208.4 cm/sec LV V1 mean P.0 mmHg MV dec slope: 1088 cm/sec2 Ao mean P.4 mmHg LV V1 mean: 79.2 cm/sec MVA(P1/2t): 3.7 cm2 Ao V2 VTI: 63.1 cm LV V1 VTI: 28.3 cm AV (velocity ratio): 0.45 KERRY(I,D): 0.71 cm2 KERRY(V,D): 0.62 cm2 SV(LVOT): 45.0 ml TR max ej: 340.0 cm/sec TR max P.2 mmHg ECHO/Echo Complete W/ Contrast Interpretation Summary Normal LV size. Moderate concentric left ventricular hypertrophy. Left ventricular systolic function is normal. Mean transmitral valve gradient 4.5 mmHg. Stable appearing mechanical mitral valve apparatus. Mean aortic valve gradient 20 mmHg. Bileaflet mechanical aortic valve. The gradients compared to the previous is stable. Contrast injection was perfor med. Compared to previous study, the left ventricular systolic function is the same.. Ordering Physician: Linda Shah Referring Physician: Linda Shah Performed By: Terry Escobar RCS
== END | disposition home or self-care (01) ==
LOC: CVS 09:57
PROVIDERS: Referring Provider Nurse Practitioner Gerontology; Visit Provider Nurse Practitioner Gerontology
DX: R06.00 Dyspnea, unspecified (principal)
CPT/HCPCS: 93306; Q9957; A4216; C8929

== ENCOUNTER 2022-12-23 08:33 | Outpatient (RCR) | payer MEDICAID, SELFPAY ==
[2022-12-05 01:19] VITALS: BMI 39.5
[2022-12-09 13:22] LABS: International Normalized Ratio 3.5; Prothrombin Time (Protime)PT. 35.6 SECONDS (11.7-14.9)
[2022-12-12 08:16] LABS: International Normalized Ratio 2.3; Prothrombin Time (Protime)PT. 25.4 SECONDS (11.7-14.9)
[2022-12-23 09:36] LABS: International Normalized Ratio 3.2; Prothrombin Time (Protime)PT. 33.4 SECONDS (11.7-14.9)
== END 2022-12-23 18:00 | disposition home or self-care (01) ==
LOC: LAB 08:33
PROVIDERS: Referring Provider Internal Medicine Cardiovascular Disease; Visit Provider Internal Medicine Cardiovascular Disease
DX: Z95.2 Presence of prosthetic heart valve (principal); Z79.01 Long term (current) use of anticoagulants; I48.0 Paroxysmal atrial fibrillation
CPT/HCPCS: 36415; 85610

== ENCOUNTER → 2023-01-14 | Outpatient (CLI) | payer MEDICAID, SELFPAY | END | disposition home or self-care (01) | PROVIDERS: Referring Provider Student in an Organized Health Care Education/Training Program; Visit Provider Student in an Organized Health Care Education/Training Program | DX: J45.20 Mild intermittent asthma, uncomplicated (principal) | CPT/HCPCS: 87070; 87077; 87186; 87205 ==

== ENCOUNTER 2023-02-03 16:08 | Outpatient (RCR) | payer MEDICAID, SELFPAY ==
[2023-01-04 04:53] VITALS: BMI 39.5
[2023-01-20 12:59] LABS: Prothrombin Time (Protime)PT. 42.5 SECONDS (11.7-14.9)
[2023-01-20 16:05] LABS: International Normalized Ratio 4.4
[2023-01-27 09:57] LABS: Prothrombin Time (Protime)PT. 43.8 SECONDS (11.7-14.9)
[2023-01-27 10:40] LABS: International Normalized Ratio 4.5
[2023-02-03 17:56] LABS: International Normalized Ratio 3.5; Prothrombin Time (Protime)PT. 35.6 SECONDS (11.7-14.9)
== END 2023-02-03 18:00 | disposition home or self-care (01) ==
LOC: LAB 16:08
PROVIDERS: Referring Provider Internal Medicine Cardiovascular Disease; Visit Provider Internal Medicine Cardiovascular Disease
DX: Z95.2 Presence of prosthetic heart valve (principal); Z79.01 Long term (current) use of anticoagulants; I48.0 Paroxysmal atrial fibrillation
CPT/HCPCS: 36415; 85610

== ENCOUNTER 2023-04-06 05:47 | Emergency (ER) | payer OTHER, SELFPAY ==
[2023-04-06 05:49] VITALS: BP 121/58; PULSE 72; RESP 16; TEMP 37.7; O2SAT 94; BMI 38.0
[2023-04-06 06:28] LABS: Absolute Lymphocyte Count 0.63 X10^3/uL (0.83-4.51); Absolute Neutrophil Count 6.9 X10^3/uL (2.0-7.7); Basophil# 0.03 X10^3/uL; Basophil% 0.4 % (0-1); Eosinophil# 0.11 X10^3/uL; Eosinophils% 1.3 % (0-5); Hematocrit 39.7 % (37-47); Hemoglobin 13.7 g/dL (12.0-15.0); Lymphocyte # 0.63 X10^3/ul (0.83-4.51); Lymphocyte % 7.5 % (19-41); Mean Corp Hgb Conc 34.5 g/dL (32-36); Mean Corpuscular Hgb 31.1 pg (27.0-32.0); Mean Platelet Vol. 11.3 fl (6.2-12.0); Monocyte# 0.74 X10^3/uL; Monocyte% 8.8 % (0-10); NRBC Flagged by Analyzer 0 % (0-5); Neutrophil # 6.88 X10^3/uL (2.7-7.7); Neutrophil % 81.6 % (47-70); Platelet Count 146 K/mm3 (150-450); RBC Distribution Width CV 14.2 % (11.6-14.6); RBC Distribution Width SD 47.1 fl (35.1-43.9); Red Blood Count 4.41 M/mm3 (4.2-5.4); White Blood Count 8.4 K/mm3 (4.4-11.0)
[2023-04-06] MEDS: Ondansetron 4 MG/2 ML Vial IV (06:28)
[2023-04-06] MEDS: LORazepam 2 MG/ML Syringe 1 MG IV (06:30)
[2023-04-06] MEDS: 0.9% Normal Saline (1000mL) 1,000 ML 999 ML IV (06:31)
--- OUTSIDE RECORDS SUMMARY | 2023-04-06 06:31 | XMS RPT_ITS | CCD ---
Author Name Unknown Address [address] [place] [address] Organization [facility] Care Team Providers Care Associate Research Scientist Name Role Phone Marcia Lindsey Unavailable Unavailable Radha Hsu Unavailable Hans Denson Unavailable Unavailable MD Tip, Dick Conde Unavailable Christianne CARBALLO, Gianluca Stubbs Unavailable Unavailable Christianne CARBALLO, Gianluca Stubbs Unavailable Unavailable Radha Hsu Unavailable Christianne CARBALLO, Gianluca Stubbs Unavailable Unavailable Christianne CARBALLO, Gianluca Stubbs Unavailable Unavailable VINICIO, LEANA Unavailable Unavailable EVA HART Unavailable Unavailable KRISS LOPEZ Unavailable Unavailable EVA HART Unavailable Unavailable HARIS Rocha, Lindsay Avila Unavailable UnavailMarcia Bsihop Unavailable Unavailable Pepper Davis Primary Care Provider UnavailJj Hernadez Unavailable Unavailable Gianluca Luna CNP Primary Care Provider WILLIAM URBAN Referring Unavailable GIANLUCA LUNA Primary Care Unavailable GIANLUCA LUNA Primary Care Unavailable Allergies Allergy Classification Reported Allergen(s) Allergy Type Date of Onset Reaction(s) Facility (11 sources) cephalexin drug allergy swelling & Rash [facility] Work Phone: [phone] (11 sources) ciprofloxacin drug allergy 04-09-19 17 [facility] Work Phone: [phone] (11 sources) clarithromycin drug allergy 06-05-19 13 SOB, Hives and swelling [facility] Work Phone: [phone] (15 sources) penicillin; Translations: [PENICILLIN] drug allergy 04-24-19 17 Unknown [facility] Work Phone: [phone] (13 sources) simvastatin; Translations: [SIMVASTATIN] food allergy 06-05-19 13 Rash [facility] Work Phone: [phone] (11 sources) sulfamethoxazole / trimethoprim drug allergy 10-22-19 16 Rash [facility] Work Phone: [phone] (11 sources) BUPROPRION drug allergy 06-05-19 13 worsened depression [facility] Work Phone: [phone] (2 sources) Adhesive Tape Propensity to adverse reactions to drug 12-19-19 [place] (2 sources) buPROPion Drug Allergy 12-19-19 20 [place] (2 sources) Cephalexin Drug Allergy 12-19-19 [place] (6 sources) Ciprofloxacin; Translations: [CIPROFLOXACIN] Drug Allergy 04-24-19 17 Mental Status [place] (2 sources) Clarithromycin Drug Allergy 12-19-19 Hives, Shortness Of Breath, [place] (2 sources[place] Penicillins Propensity to adverse reactions to drug 12-19-19 Other (See Comments) [place] (2 sources) Sulfamethoxazole Drug Allergy 12-19-19 [place] (2 sources) Trimethoprim Drug Allergy 12-19-19 [place] ([place] sources[place] Macrolides And Ketolides Propensity to adverse reactions to drug 12-19-19 [place] (4 sources) Adhesive Tape; Translations: [ADHESIVE TAPE (ROSINS)] Allergy to substance 05-09-19 [facility] (4 sources) Sulfonamides (Antibiotic); Translations: [SULFA (SULFONAMIDE ANTIBIOTICS)] Drug Allergy 04-24-[address] [facility] Medications Current Medications Medication Drug Class(es) Dates Sig (Normalized) Sig (Original) acetaminophen 500 mg oral tablet (6 sources) Start: 01-04-2020 take 1 tablet by mouth four times daily as needed for pain acetaminophen (TYLENOL) 500 MG tablet Take 1 tablet by mouth 4 times daily as needed for Pain 30 tablet 0 01/04/2020 Active Completed/Discontinued Medications Medication Drug Class(es) Dates Sig (Normalized) Sig (Original) acetaminophen 325 mg / oxyCODONE hydrochloride 5 mg oral tablet (20 sources) Opioid Agonist Start: 06-04-2012 PERCOCET 5-325 MG TABS As needed OXYCODONE-ACETAMINO PHEN [id number] Dick Whelan MD Problems Active Problems Problem Classification Problem Date Documented Da te Episodic/Chronic Cancer of uterus (2 sources) Malignant neoplasm of endometrium of corpus uteri ; Translations: [Endometrial cancer (HCC)] 01-03-2020 Chronic Cardiac and circulatory congenital anomalies (11 sources) Congenital insufficiency of aortic valve; Translations: [Congenital insufficiency of aortic valve] Onset: 04-02-2011 03-28-2015 Chronic Conduction disorders (7 sources) Left bundle branch block; Translations: [Left bundle-branch block, unspecified] Onset: 09-25-2016 09-25-2016 Chronic Congestive heart failure; nonhypertensive (7 sources) Chronic diastolic (congestive) heart failure; Translations: [Chronic diastolic (congestive) heart failure] Onset: 09-25-2016 09-25-2016 Chronic Disorders of lipid metabolism (14 sources) Hypercholesterolemia ; Translations: [Mixed hyperlipidemia] Onset: 04-02-2011 04-02-2011 Chronic Essential hypertension (11 sources) Hypertensive disorder; Translations: [Essential (primary) hypertension] Onset: 12-08-2012 12-08-2012 Chronic Heart valve disorders (20 sources) Nonrheumatic aortic (valve) stenosis with insufficiency; Translations: [Endocarditis] Onset: 04-02-2011 Resolved: 09-25-2016 06-03-2016 Chronic Other lower respiratory disease (1 source) Cough; Translations: [Acute cough] 12-04-2022 Episodic Other nervous system disorders (3 sources) Neuropathy; Translations: [Polyneuropathy, unspecified] Onset: 06-11-2016 06-12-2016 Chronic Other nutritional; endocrine; and metabolic disorders (20 sources) Body mass index (BMI) 40.0-44.9, adult; Translations: [Obesity] Onset: 12-08-2012 Resolved: 09-25-2016 09-25-2016 Chronic Other nutritional; endocrine; and metabolic disorders (2 sources) Obesity; Translations: [Obesity, unspecified] Onset: 12-08-2012 12-08-2012 Chronic Other upper respiratory infections (1 source) Chronic sinusitis; Translations: [Chronic sinusitis, unspecified] 12-04-2022 Chronic Mary-; endo-; and myocarditis; cardiomyopathy (except that caused by tuberculosis or sexually transmitted disease) (6 sources) Endocarditis; Translations: [Endocarditis, valve unspecified] Onset: 04-09-2016 Resolved: 09-25-2016 09-25-2016 Chronic Residual codes; unclassified (2 sources) Postoperative state; Translations: [Post-operative state] Onset: 01-03-2020 01-03-2020 Unclassified (14 sources) Obstructive sleep apnea syndrome; Translations: [Obstructive sleep apnea (adult) (pediatric)] Onset: 12-21-2012 12-21-2012 Chronic Unclassified (9 sources) Replacement of aortic valve ; Translations: [Presence of prosthetic heart valve] Onset: 06-16-2016 06-16-2016 Unclassified (6 sources) Long-term drug therapy; Translations: [Long-term (current) use of other medications] Onset: 12-15-2012 12-15-2012 Unclassified (6 sources) History of mechanical mitral valve replacement; Translations: [Presence of prosthetic heart valve] Onset: 06-16-2016 Resolved: 09-25-2016 09-25-2016 Unclassified (3 sources) SUMMARY Onset: 2016 06-12-2016 Past or Other Problems Problem Classification Problem Date Documented Da te Episodic/Chronic Administrative/social admission (3 sources) Discharge status; Translations: [Encounter for administrative examinations, unspecified] Onset: 05-09-2016 06-12-2016 Episodic Allergic reactions (20 sources) Urticaria; Translations: [Urticaria, unspecified] Resolved: 06-03-2016 11-06-2010 Episodic Fluid and electrolyte disorders (3 sources) Hypervolemia; Translations: [Fluid overload, unspecified] Onset: 05-30-2016 06-12-2016 Episodic Nonspecific chest pain (18 sources) Precordial pain; Translations: [Precordial pain] Onset: 04-16-2012 Resolved: 09-25-2016 09-25-2016 Episodic Other aftercare (16 sources) Other keno terminal operator (current) drug therapy; Translations: [Long-term (current) use of other medications] Onset: 12-15-2012 03-28-2015 Episodic Other gastrointestinal disorders (18 sources) Diarrhea; Translations: [Diarrhea, unspecified] Onset: 06-30-2016 Resolved: 09-25-2016 06-30-2016 Episodic Other inflammatory condition of skin (20 sources) Intertrigo; Translations: [Seborrheic dermatitis] Resolved: 06-03-2016 11-06-2010 Episodic Other inflammatory condition of skin (4 sources) Seborrheic dermatitis; Translations: [Seborrheic dermatitis, unspecified] Resolved: 06-03-2016 06-03-2016 Episodic Other lower respiratory disease (20 sources) Pleuritic pain; Translations: [Dyspnea] Onset: 10-22-2015 Resolved: 09-25-2016 09-25-2016 Episodic Other lower respiratory disease (5 sources) Dyspnea; Translations: [Dyspnea, unspecified] Onset: 11-28-2015 11-28-2015 Episodic Other skin disorders (20 sources) Xerosis cutis; Translations: [Xerosis cutis] Resolved: 06-03-2016 10-09-2010 Episodic Mary-; endo-; and myocarditis; cardiomyopathy (11 sources) Acute and subacute infective endocarditis; Translations: [Acute and subacute infective endocarditis] Onset: 06-03-2016 06-03-2016 Episodic Pleurisy; pneumothorax; pulmonary collapse (18 sources) Pleural effusion; Translations: [Pleural effusion, not elsewhere classified] Onset: 10-22-2015 Resolved: 09-25-2016 10-22-2015 Episodic Residual codes; unclassified (2 sources) Family history of sudden ; Translations: [Family history of other specified conditions] 03-28-2015 Episodic Residual codes; unclassified (2 sources) Other specified postprocedural states; Translations: [Other specified postprocedural states] Onset: 04-16-2016 04-16-2016 Episodic Septicemia (11 sources) Sepsis due to Streptococcus; Translations: [Streptococcal sepsis, unspecified] Onset: 04-25-2016 04-25-2016 Episodic Superficial injury; contusion (20 sources) Other injury of unspecified body region; Translations: [Other injury of unspecified body region] Resolved: 06-03-2016 10-09-2010 Episodic Unclassified (20 sources) FH: Hypertension; Translations: [Family history of sudden ] Onset: 04-16-2016 Resolved: 09-25-2016 09-25-2016 Episodic Results Test Name Value Interpretation Reference Range Facil ity Vital Signs Date Time Vital Sign Value Performing Clinician Facility 12-04-2022 16:45-0400 Body temperature 97.39 [degF] William Urban ANGLESMITH HELPER.INSIDE WIREMAN Work Phone: [facility] 12-04-2022 16:45-0400 Body weight 115.39 kg William Urban ANGLESMITH HELPER.INSIDE WIREMAN Work Phone: [facility] 12-04-2022 16:45-0400 Diastolic blood pressure 78 mm[Hg] William Urban ANGLESMITH HELPER.INSIDE WIREMAN Work Phone: [facility] 12-04-2022 16:45-0400 Heart rate 76 /min William Urban ANGLESMITH HELPER.INSIDE WIREMAN Work Phone: [facility] 12-04-2022 16:45-0400 Respiratory rate 18 /min William Urban ANGLESMITH HELPER.INSIDE WIREMAN Work Phone: [facility] 12-04-2022 16:45-0400 SaO2% (BldA) [Mass fraction] 96 % William Urban ANGLESMITH HELPER.INSIDE WIREMAN Work Phone: [facility] 12-04-2022 16:45-0400 Systolic blood pressure 140 mm[Hg] William Urban ANGLESMITH HELPER.INSIDE WIREMAN Work Phone: [facility] 01-04-2020 09:27-0400 Body Temperature 96.8 [degF] Isaac Mcneil [facility] 01-04-2020 09:27-0400 BP Diastolic 51 mm[Hg] [facility] [place] 01-04-2020 09:27-0400 BP Systolic 110 mm[Hg] Isaactika Mcneil [facility] , [place] 01-04-2020 09:27-0400 Pulse (Heart Rate) 70 /min Isaac Mcneil [facility], [place] 01-04-2020 09:27-0400 Pulse Oximetry 94 % Isaac Mcneil [facility] , [place] 01-04-2020 09:27-0400 Respiratory Rate 18 /min Isaac Mcneil [facility], [place] 01-03-2020 11:59-0400 BMI (Body Mass Index) 39.97 kg/m2 [facility] [place] 01-03-2020 11:59-0400 Body weight 117.48 kg Isaac Mendez [facility] , [place] 01-03-2020 11:59-0400 Height 171.5 cm [facility] [place] 12-28-2019 14:10-0400 BMI (Body Mass Index) 39.97 kg/m2 Isaac Mendez [facility], [place] 12-28-2019 14:10-0400 Body Temperature 96.69 [degF] Isaac Mendez [facility], [place] 12-28-2019 14:10-0400 Body weight 117.48 kg [facility] [place] 12-28-2019 14:10-0400 BP Diastolic 75 mm[Hg] Isaac Mcneil [facility] , [place] 12-28-2019 14:10-0400 BP Systolic 147 mm[Hg] Isaac Mcneil [facility] , [place] 12-28-2019 14:10-0400 Pulse (Heart Rate) 82 /min Isaac Mcneil [facility], [place] 12-28-2019 14:10-0400 Pulse Oximetry 95 % [facility] [place] 12-28-2019 14:10-0400 Respiratory Rate 18 /min Isaac Mcneil [facility], [place] 11-25-2016 06:57-0400 BMI (Body Mass Index) 40.09 kg/m2 Marcia Lindsey [facility] Work Phone: 11-25-2016 06:57-0400 Body Temperature 98.1 [degF] Marciacira Lindsey [facility] Work Phone: 11-25-2016 06:57-0400 BP Diastolic 80 mm[Hg] Marciacira Lindsey [facility] Work Phone: 11-25-2016 06:57-0400 BP Systolic 144 mm[Hg] Marcia César [facility] Work Phone: 11-25-2016 06:57-0400 Height 170.18 cm Marcia César [facility] Work Phone: 11-25-2016 06:57-0400 Pulse (Heart Rate) 78 /min [facility] Work Phone: 11-25-2016 06:57-0400 Respiratory Rate 18 /min [facility] [place] Work Phone: 11-25-2016 06:57-0400 Weight 116.12 kg [facility] [place] Work Phone: 09-26-2016 13:13-0400 BMI (Body Mass Index) 40.09 kg/m2 Radha [facility] Work Phone: 09-26-2016 13:13-0400 BP Diastolic 70 mm[Hg] Radha Hsu [facility] Work Phone: 09-26-2016 13:13-0400 BP Systolic 130 mm[Hg] [facility] Work Phone: 09-26-2016 13:13-0400 Height 170.18 cm Radha Hsu [facility] Work Phone: 09-26-2016 13:13-0400 Pulse (Heart Rate) 60 /min [facility] Work Phone: 09-26-2016 13:13-0400 Respiratory Rate 18 /min [facility] Work Phone: 09-26-2016 13:13-0400 Weight 116.12 kg [facility] Work Phone: 06-30-2016 09:33-0400 BMI (Body Mass Index) 41.16 kg/m2 Gianluca Faust RN [facility] Work Phone: 06-30-2016 09:33-0400 Body Temperature 98 [degF] Gianluca Faust RN [facility] Work Phone: 06-30-2016 09:33-0400 BP Diastolic 66 mm[Hg] Gianluca Faust RN [facility] Work Phone: 06-30-2016 09:33-0400 BP Systolic 134 mm[Hg] Gianluca Faust RN [facility] Work Phone: 06-30-2016 09:33-0400 Height 170.18 cm Gianluca Faust RN [facility] Work Phone: 06-30-2016 09:33-0400 Pulse (Heart Rate) 73 /min Gianluca Faust RN [facility] Work Phone: 06-30-2016 09:33-0400 Pulse Oximetry 98 % Gianluca Faust RN [facility] Work Phone: 06-30-2016 09:33-0400 Respiratory Rate 20 /min Gianluca Faust RN [facility] Work Phone: 06-30-2016 09:33-0400 Weight 119.21 kg Gianluca Faust RN [facility] Work Phone: 06-18-2016 12:57-0400 Heart rate 76 /min Lindsay Rocha RN [facility] Work Phone: 11-28-2015 09:00-0400 Body Temperature 97.52 [degF] Gianluca Faust RN [facility] Work Phone: 11-28-2015 09:00-0400 BSA (Body Surface Area) 2.36 m2 Gianluca Faust RN [facility] Work Phone: 11-28-2015 09:00-0400 Height 170.18 cm Gianluca Faust RN [facility] Work Phone: 11-28-2015 09:00-0400 Weight 130.91 kg Gianluca Faust RN [facility] Work Phone: 10-11-2015 09:20-0400 Pulse Oximetry 98 % Gianluca Faust RN [facility] Work Phone: Encounters Encounter Date Encounter Type Care Provider Facility Start: 12-06-2022 Telephone encounter Apolonia Sonmariam Shelley APRN.CNP Work Phone: [facility] Procedures Date Procedure Procedure Detail Performing Clinician Start: 12-04-2022 Radiologic exam chest 2 views William Urban APRN.INSIDE WIREMAN Work Phone: Start: 01-04-2020 Gluc bld gluc mntr dev cleared fda spec home use Isaac Mcneil Work Phone: Start: 01-04-2020 Blood count complete automated Nataliya Hayes Work Phone: Start: 01-03-2020 Gluc bld gluc mntr dev cleared fda spec home use Isaac Mcneil Work Phone: Start: 01-03-2020 OPERATIVE REPORT 3m Scanning Start: 01-03-2020 Gluc bld gluc mntr dev cleared fda spec home use Isaac Mcneil Work Phone: Start: 01-03-2020 Prothrombin time Alejandro Forde Work Phone: Start: 01-03-2020 Gluc bld gluc mntr dev cleared fda spec home use Isaac Mcneil Work Phone: Start: 12-28-2019 Basic metabolic panel calcium total Saira Sheehan Work Phone: Start: 12-28-2019 Blood count hemoglobin Saira Sheehan Work Phone: Start: 12-28-2019 Blood typing serologic abo Saira Sheehan Work Phone: Start: 12-28-2019 Ecg routine ecg w/least 12 lds w/i&r Saira Sheehan Work Phone: Start: 03-23-2017 End: 03-25-2017 *Hepatic Function Panel Margarita Brown Start: 03-23-2017 End: 03-25-2017 Lipid panel [AGGREGATE] Margarita Brown Start: 11-25-2016 End: 11-25-2016 Dietary management education, guidance, and counseling Marcia Lindsey Start: 09-18-2016 End: 09-24-2016 *BMP Dick Whelan MD Start: 09-18-2016 End: 09-24-2016 *Hepatic Function Panel Margarita Brown Start: 09-18-2016 End: 09-24-2016 Lipid 1996 panel - Serum or Plasma Dick Whelan MD Start: 09-18-2016 End: 09-24-2016 *BMP Dick Whelan MD Start: 09-18-2016 End: 09-24-2016 *Hepatic Function Panel Margarita Brown Start: 09-18-2016 End: 09-24-2016 Lipid panel [AGGREGATE] Margarita Brown Start: 06-25-2016 End: 06-30-2016 Bacteria identified in Blood by Culture Nichol Paez MD Start: 06-25-2016 End: 06-30-2016 Bacteria culture Nichol Paez MD Start: 06-18-2016 End: 06-18-2016 MERARI Whelan MD Start: 06-18-2016 End: 06-18-2016 Ecg routine ecg w/least 12 lds w/i&r Dick Whelan MD Start: 06-18-2016 End: 06-18-2016 Follow Up Appt 3 months Margarita Brown Start: 06-18-2016 End: 06-18-2016 MERARI Whelan MD Start: 06-18-2016 End: 06-18-2016 Electrocardiogram, complete Dick Whelan MD Start: 06-18-2016 End: 06-18-2016 Follow Up Appt 3 months Margarita Brown Start: 06-16-2016 Replacement of aortic valve Aortic valve replacement Lindsay Rocha RN Start: 04-25-2016 End: 06-30-2016 Bacteria identified in Blood by Culture Nichol Paez MD Start: 04-25-2016 End: 06-30-2016 Bacteria culture Nichol Paez MD Start: 04-16-2016 End: 04-16-2016 *CBC with Differential Nichol Lissa Signs Start: 04-16-2016 End: 04-16-2016 C reactive protein [Mass/volume] in Serum or Plasma by High sensitivity method Nichol Paez MD Start: 04-16-2016 End: 04-16-2016 Erythrocyte sedimentation rate Nichol Paez MD Start: 04-16-2016 End: 04-16-2016 *CBC with Differential Nichol Lissa Paez MD Start: 04-16-2016 End: 04-16-2016 C reactive protein (hsCRP) Nichol Paez MD Start: 04-16-2016 End: 04-16-2016 Erythrocyte sedimentation rate Nichol Paez MD Start: 04-09-2016 End: 04-09-2016 *CBC with Differential Nichol Lissa Paez MD Start: 04-09-2016 End: 04-09-2016 Bacteria identified in Blood by Culture Nichol Paez MD Start: 04-09-2016 End: 04-09-2016 Bacteria identified in Wound by Culture Nichol Paez MD Start: 04-09-2016 End: 04-09-2016 C reactive protein [Mass/volume] in Serum or Plasma by High sensitivity method Nichol Paez MD Start: 04-09-2016 End: 04-09-2016 Erythrocyte sedimentation rate Nichol Paez MD Start: 04-09-2016 End: 04-09-2016 *CBC with Differential Nichol Lissa Signs Start: 04-09-2016 End: 04-09-2016 Bacteria culture Nichol Paez MD Start: 04-09-2016 End: 04-09-2016 Bacterica wound culture Nichol Avila D Start: 04-09-2016 End: 04-09-2016 C reactive protein (hsCRP) Nichol Paez MD Start: 04-09-2016 End: 04-09-2016 Erythrocyte sedimentation rate Nichol Paez MD Start: 11-28-2015 End: 11-28-2015 Dietary management education, guidance, and counseling Lindsay Rocha RN Start: 10-22-2015 End: 10-22-2015 Chest x-ray Corina Gleason CNP Work Phone: Start: 10-22-2015 End: 10-22-2015 Fibrin D-dimer FEU [Mass/volume] in Platelet poor plasma Corina Gleason CNP Work Phone: Start: 10-22-2015 End: 10-22-2015 Follow Up Appt 1 month Corinayuki rucker INSIDE WIREMAN Work Phone: Start: 10-22-2015 End: 10-22-2015 Chest x-ray Corina Gleason CNP Work Phone: Start: 10-22-2015 End: 10-22-2015 Fibrin D-dimer FEU Corina Gleason CNP Work Phone: Start: 10-22-2015 End: 10-22-2015 Follow Up Appt 1 month Corina rucker INSIDE WIREMAN Work Phone: Start: 10-11-2015 End: 10-11-2015 Follow Up Appt 6 months Margarita Brown Start: 10-11-2015 End: 10-11-2015 OZZIE Whelan MD Start: 10-11-2015 End: 10-11-2015 Follow Up Appt 6 months Margarita Brown Start: 10-11-2015 End: 10-11-2015 OZZIE Whelan MD Start: 03-28-2015 End: 03-29-2015 *Hepatic Function Panel Fatmata chicas PA-C Work Phone: Start: 03-28-2015 End: 03-28-2015 PIERCING ARTIST Fatmata Price PA-C Work Phone: Start: 03-28-2015 End: 03-28-2015 Ecg routine ecg w/least 12 lds w/i&r Fatmata Price PA-C Work Phone: Start: 03-28-2015 End: 03-28-2015 Follow Up Appt 6 months Fatmata chicas PA-C Work Phone: Start: 03-28-2015 End: 03-29-2015 Lipid 1996 panel - Serum or Plasma Fatmata Price PA-C Work Phone: Start: 03-28-2015 End: 03-29-2015 *Hepatic Function Panel Fatmata chicas PA-C Work Phone: Start: 03-28-2015 End: 03-28-2015 PIERCING ARTIST Fatmata Price PA-C Work Phone: Start: 03-28-2015 End: 03-28-2015 Follow Up Appt 6 months Fatmata chicas PA-C Work Phone: Start: 03-28-2015 End: 03-29-2015 Lipid panel [AGGREGATE] Fatmata chicas PA-C Work Phone: Start: 01-02-2015 End: 03-28-2015 *Hepatic Function Panel Margarita Brown Start: 01-02-2015 End: 03-28-2015 Lipid 1996 panel - Serum or Plasma Dick Whelan MD Start: 01-02-2015 End: 03-28-2015 *Hepatic Function Panel Margarita Brown Start: 01-02-2015 End: 03-28-2015 Lipid panel [AGGREGATE] Margarita Brown Start: 09-29-2014 End: 09-30-2014 Documentation of current medications Dick Whelan MD Start: 09-29-2014 End: 09-29-2014 Follow Up Appt 6 months Margarita Brown Start: 09-29-2014 End: 09-29-2014 MMMargarita Whelan MD Start: 09-29-2014 End: 09-30-2014 Documentation of current medications Dick Whelan MD Start: 09-29-2014 End: 09-29-2014 Follow Up Appt 6 months Margarita Brown Start: 09-29-2014 End: 09-29-2014 MMMargarita Whelan MD Start: 09-28-2014 End: 09-28-2014 *Hepatic Function Panel Fatmata chicas PA-C Work Phone: Start: 09-28-2014 End: 09-28-2014 Lipid 1996 panel - Serum or Plasma Fatmata Price PA-C Work Phone: Start: 09-28-2014 End: 09-28-2014 *Hepatic Function Panel Fatmata chicas PA-C Work Phone: Start: 09-28-2014 End: 09-28-2014 Lipid panel [AGGREGATE] Fatmata chicas PA-C Work Phone: Start: 02-16-2014 End: 04-20-2014 *Hepatic Function Panel Fatmata cihcas PA-C Work Phone: Start: 02-16-2014 End: 02-16-2014 PIERCING ARTIST Fatmata Price PA-C Work Phone: Start: 02-16-2014 End: 02-16-2014 Ecg routine ecg w/least 12 lds w/i&r Fatmata Price PA-C Work Phone: Start: 02-16-2014 End: 02-16-2014 Follow Up Appt 6 months Fatmata chicas PA-C Work Phone: Start: 02-16-2014 End: 04-20-2014 Lipid 1996 panel - Serum or Plasma Fatmata Price PA-C Work Phone: Start: 02-16-2014 End: 04-20-2014 *Hepatic Function Panel Fatmata chicas PA-C Work Phone: Start: 02-16-2014 End: 02-16-2014 PIERCING ARTIST Fatmata Price PA-C Work Phone: Start: 02-16-2014 End: 02-16-2014 Follow Up Appt 6 months Fatmata chicas PA-C Work Phone: Start: 02-16-2014 End: 04-20-2014 Lipid panel [AGGREGATE] Fatmata chicas PA-C Work Phone: Start: 08-18-2013 End: 02-06-2014 Follow Up Appt 6 months Margarita Brown Start: 08-18-2013 End: 02-06-2014 OZZIE Whelan MD Start: 08-18-2013 End: 02-06-2014 Follow Up Appt 6 months Margarita Brown Start: 08-18-2013 End: 02-06-2014 OZZIE Whelan MD Start: 08-17-2013 End: 08-17-2013 *Hepatic Function Panel Fatmata chicas PA-C Work Phone: Start: 08-17-2013 End: 08-17-2013 Lipid 1996 panel - Serum or Plasma Fatmata Price PA-C Work Phone: Start: 08-17-2013 End: 08-17-2013 *Hepatic Function Panel Fatmata chicas PA-C Work Phone: Start: 08-17-2013 End: 08-17-2013 Lipid panel [AGGREGATE] Fatmata chicas PA-C Work Phone: Start: 02-07-2013 End: 02-07-2013 PIERCING ARTIST Fatmata Price PA-C Work Phone: Start: 02-07-2013 End: 02-07-2013 Follow Up Appt 6 months Fatmata chicas PA-C Work Phone: Start: 02-07-2013 End: 02-07-2013 PIERCING ARTIST Fatmata Price PA-C Work Phone: Start: 02-07-2013 End: 02-07-2013 Follow Up Appt 6 months Fatmata chicas PA-C Work Phone: Start: 02-03-2013 End: 02-07-2013 *Hepatic Function Panel Fatmata chicas PA-C Work Phone: Start: 02-03-2013 End: 02-07-2013 Lipid 1996 panel - Serum or Plasma Fatmata Price PA-C Work Phone: Start: 02-03-2013 End: 02-07-2013 *Hepatic Function Panel Fatmata chicas PA-C Work Phone: Start: 02-03-2013 End: 02-07-2013 Lipid panel [AGGREGATE] Fatmata chicas PA-C Work Phone: Start: 12-08-2012 End: 12-15-2012 *Hepatic Function Panel Fatmata chicas PA-C Work Phone: Start: 12-08-2012 End: 12-08-2012 Follow Up Appt 2 months Fatmata chicas PA-C Work Phone: Start: 12-08-2012 End: 12-15-2012 Lipid 1996 panel - Serum or Plasma Fatmata Price PA-C Work Phone: Start: 12-08-2012 End: 12-08-2012 MMM Fatmata Price PA-C Work Phone: Start: 12-08-2012 End: 12-15-2012 *Hepatic Function Panel Fatmata chicas PA-C Work Phone: Start: 12-08-2012 End: 12-08-2012 Follow Up Appt 2 months Fatmata chicas PA-C Work Phone: Start: 12-08-2012 End: 12-15-2012 Lipid panel [AGGREGATE] Fatmata chicas PA-C Work Phone: Start: 12-08-2012 End: 12-08-2012 MMM Fatmata Price PA-C Work Phone: Start: 06-04-2012 End: 06-04-2012 Follow Up Appt 6 months Margarita Brown Start: 06-04-2012 End: 06-04-2012 OZZIE Whelan MD Start: 06-04-2012 End: 06-04-2012 Follow Up Appt 6 months Margarita Brown Start: 06-04-2012 End: 06-04-2012 OZZIE Whelan MD Start: 04-19-2012 End: 06-04-2012 Left Heart Cath Dick Whelan MD Start: 04-19-2012 End: 06-04-2012 Left Heart Cath Dick Whelan MD Start: 04-02-2011 End: 06-04-2012 *Hepatic Function Panel Margarita Brown Start: 04-02-2011 End: 04-02-2011 Follow Up Appt 6 months Margarita Brown Start: 04-02-2011 End: 06-04-2012 Lipid 1996 panel - Serum or Plasma Dick Whelan MD Start: 04-02-2011 End: 06-04-2012 *Hepatic Function Panel Margarita Brown Start: 04-02-2011 End: 04-02-2011 Follow Up Appt 6 months Margarita Brown Start: 04-02-2011 End: 06-04-2012 Lipid panel [AGGREGATE] Margarita Brown Plan of Treatment Date Care Activity Detail Author Start: 10-28-2025 DIABETES SCREEN DIABETES SCREEN [facility] Start: 12-05-2022 Influenza vaccination INFLUENZA (#1) [facility] Start: 04-06-2022 DEPRESSION ASSESSMENT DEPRESSION ASSESSMENT [facility] Start: 03-23-2022 [address] L[address] SCREEN [facility] Start: 03-03-2021 COVID-19 VACCINE (4 - Mixed Product series) COVID-19 VACCINE (4 - Mixed Product series) [facility] Start: 12-27-2020 Creatinine measurement Creatinine monitoring [place], [place] Start: 12-27-2020 Potassium monitoring Potassium monitoring [place], [place] Start: 01-19-2020 End: 01-19-2020 Office Visit 01/19/2020 Office Visit Gynecologic Oncology Nataliya Payton PA [address] [place] [id number] [facility] [place] [employer] [facility] Oncology Start: 01-03-2020 End: 01-03-2020 Appointment 01/03/2020 Appointment General Surgery Isaac Mcneil MD [address] [place] [address] [facility] General Surgery Start: 12-06-2019 Influenza vaccination Flu vaccine (#1) [place] Start: 03-09-2019 DTaP/Tdap/Td vaccine (2 - Td) DTaP/Tdap/Td vaccine (2 - Td) [place] Start: 05-26-2017 End: 05-26-2017 Appointment Appointment [facility] Work Phone: Start: 03-27-2017 End: 03-27-2017 Appointment Appointment [facility] Work Phone: Start: 03-23-2017 End: 09-24-2016 *Hepatic Function Panel *Hepatic Function Panel [facility] Work Phone: Start: 03-23-2017 End: 09-24-2016 Lipid panel [AGGREGATE] *Lipid Profile CC PCP [facility] Work Phone: Start: 03-23-2017 End: 03-25-2017 *Hepatic Function Panel *Hepatic Function Panel [facility] Work Phone: Start: 03-23-2017 End: 03-25-2017 Lipid panel [AGGREGATE] *Lipid Profile CC PCP [facility] Work Phone: Start: 11-25-2016 End: 11-25-2016 DMB DMB [facility] Work Phone: Start: 11-25-2016 End: 11-25-2016 Follow Up Appt 6 months Follow Up Appt 6 months [facility] Work Phone: Start: 11-25-2016 End: 11-25-2016 Appointment Appointment [facility] Work Phone: Start: 11-25-2016 End: 11-25-2016 Appointment Appointment [facility] Work Phone: Start: 11-25-2016 End: 11-25-2016 DMB DMB [facility] Work Phone: Start: 11-25-2016 End: 11-25-2016 Follow Up Appt 6 months Follow Up Appt 6 months [facility] Work Phone: Start: 09-26-2016 End: 09-26-2016 Appointment Appointment [facility] Work Phone: Start: 09-26-2016 End: 09-26-2016 Follow Up Appt 6 months Follow Up Appt 6 months [facility] Work Phone: Start: 09-26-2016 End: 09-26-2016 MMM MMM [facility] Work Phone: Start: 09-26-2016 End: 09-26-2016 Follow Up Appt 6 months Follow Up Appt 6 months [facility] Work Phone: Start: 09-26-2016 End: 09-26-2016 MMM MMM [facility] Work Phone: Start: 09-18-2016 End: 09-24-2016 *BMP *BMP [facility] Work Phone: Start: 09-18-2016 End: 09-24-2016 *Hepatic Function Panel *Hepatic Function Panel [facility] Work Phone: Start: 09-18-2016 End: 09-24-2016 Lipid panel [AGGREGATE] *Lipid Profile CC PCP [facility] Work Phone: Start: 09-18-2016 End: 09-18-2016 Appointment Appointment [facility] Work Phone: Start: 09-18-2016 End: 09-24-2016 *BMP *BMP [facility] Work Phone: Start: 09-18-2016 End: 09-24-2016 *Hepatic Function Panel *Hepatic Function Panel [facility] Work Phone: Start: 09-18-2016 End: 09-24-2016 Lipid panel [AGGREGATE] *Lipid Profile CC PCP [facility] Work Phone: Start: 07-16-2016 End: 07-16-2016 *CBC with Differential *CBC with Differential [facility] Work Phone: Start: 07-16-2016 End: 07-16-2016 C reactive protein (hsCRP) *CRP - C-Reative Protein [facility] Work Phone: Start: 07-16-2016 End: 07-16-2016 Erythrocyte sedimentation rate *Sedimentation Rate (ESR) [facility] Work Phone: Start: 07-16-2016 End: 07-16-2016 *CBC with Differential *CBC with Differential [facility] Work Phone: Start: 07-16-2016 End: 07-16-2016 C reactive protein (hsCRP) *CRP - C-Reative Protein [facility] Work Phone: Start: 07-16-2016 End: 07-16-2016 Erythrocyte sedimentation rate *Sedimentation Rate (ESR) [facility] Work Phone: Start: 07-07-2016 End: 07-07-2016 Bacteria culture *CUB - Culture, Blood [facility] Work Phone: Start: 07-07-2016 End: 07-07-2016 Bacteria culture *CUB - Culture, Blood [facility] Work Phone: Start: 06-25-2016 End: 06-30-2016 Bacteria culture *CUB - Culture, Blood [facility] Work Phone: Start: 06-25-2016 End: 06-30-2016 Bacteria culture *CUB - Culture, Blood [facility] Work Phone: Start: 06-18-2016 End: 09-15-2016 Cardiac Rehab Cardiac Rehab [address] [place], [address] [facility] Work Phone: Start: 06-18-2016 End: 06-18-2016 PIERCING ARTIST PIERCING ARTIST [facility] Work Phone: Start: 06-18-2016 End: 06-18-2016 Ecg routine ecg w/least 12 lds w/i&r EKG (In office) [facility] Work Phone: Start: 06-18-2016 End: 06-18-2016 Follow Up Appt 3 months Follow Up Appt 3 months [facility] Work Phone: Start: 06-18-2016 End: 09-15-2016 Cardiac Rehab Cardiac Rehab [address] [place], [address] [facility] Work Phone: Start: 06-18-2016 End: 06-18-2016 PIERCING ARTIST PIERCING ARTIST [facility] Work Phone: Start: 06-18-2016 End: 06-18-2016 Electrocardiogram, complete EKG (In office) [facility] Work Phone: Start: 06-18-2016 End: 06-18-2016 Follow Up Appt 3 months Follow Up Appt 3 months [facility] Work Phone: Start: 04-25-2016 End: 06-30-2016 Bacteria culture *CUB - Culture, Blood [facility] Work Phone: Start: 04-25-2016 End: 06-30-2016 Bacteria culture *CUB - Culture, Blood [facility] Work Phone: Start: 04-16-2016 End: 04-16-2016 *CBC with Differential *CBC with Differential [facility] Work Phone: Start: 04-16-2016 End: 04-16-2016 C reactive protein (hsCRP) *CRP - C-Reative Protein [facility] Work Phone: Start: 04-16-2016 End: 04-16-2016 Erythrocyte sedimentation rate *Sedimentation Rate (ESR) [facility] Work Phone: Start: 04-16-2016 End: 04-16-2016 *CBC with Differential *CBC with Differential [facility] Work Phone: Start: 04-16-2016 End: 04-16-2016 C reactive protein (hsCRP) *CRP - C-Reative Protein [facility] Work Phone: Start: 04-16-2016 End: 04-16-2016 Erythrocyte sedimentation rate *Sedimentation Rate (ESR) [facility] Work Phone: Start: 04-09-2016 End: 04-09-2016 *CBC with Differential *CBC with Differential [facility] Work Phone: Start: 04-09-2016 End: 04-09-2016 Bacteria culture *CUB - Culture, Blood [facility] Work Phone: Start: 04-09-2016 End: 04-09-2016 Bacterica wound culture *Culture and Sensitivity, wound [facility] Work Phone: Start: 04-09-2016 End: 04-09-2016 C reactive protein (hsCRP) *CRP - C-Reative Protein [facility] Work Phone: Start: 04-09-2016 End: 04-09-2016 Erythrocyte sedimentation rate *Sedimentation Rate (ESR) [facility] Work Phone: Start: 04-09-2016 End: 04-09-2016 *CBC with Differential *CBC with Differential [facility] Work Phone: Start: 04-09-2016 End: 04-09-2016 Bacteria culture *CUB - Culture, Blood [facility] Work Phone: Start: 04-09-2016 End: 04-09-2016 Bacterica wound culture *Culture and Sensitivity, wound [facility] Work Phone: Start: 04-09-2016 End: 04-09-2016 C reactive protein (hsCRP) *CRP - C-Reative Protein [facility] Work Phone: Start: 04-09-2016 End: 04-09-2016 Erythrocyte sedimentation rate *Sedimentation Rate (ESR) [facility] Work Phone: Start: 11-28-2015 End: 11-28-2015 [facility] Work Phone: Start: 11-28-2015 End: 11-28-2015 Follow Up Appt 1 year Follow Up Appt 1 year [facility] Work Phone: Start: 11-28-2015 End: 11-28-2015 [facility] Work Phone: Start: 11-28-2015 End: 11-28-2015 Follow Up Appt 1 year Follow Up Appt 1 year [facility] Work Phone: Start: 10-22-2015 End: 10-22-2015 Chest x-ray X-Ray, Chest, PA & Lateral [facility] Work Phone: Start: 10-22-2015 End: 10-22-2015 Fibrin D-dimer FEU *DDIMQ - Fibrin Degrd Ultrsens Qual/Semiquan [facility] Work Phone: Start: 10-22-2015 End: 10-22-2015 Follow Up Appt 1 month Follow Up Appt 1 month [facility] Work Phone: Start: 10-22-2015 End: 10-22-2015 Chest x-ray X-Ray, Chest, PA & Lateral [facility] Work Phone: Start: 10-22-2015 End: 10-22-2015 Fibrin D-dimer FEU *DDIMQ - Fibrin Degrd Ultrsens Qual/Semiquan [facility] Work Phone: Start: 10-22-2015 End: 10-22-2015 Fibrin D-dimer FEU mass conc (PPP) *DDIMQ - Fibrin Degrd Ultrsens Qual/Semiquan [facility] Work Phone: Start: 10-22-2015 End: 10-22-2015 Follow Up Appt 1 month Follow Up Appt 1 month [facility] Work Phone: Start: 10-11-2015 End: 10-11-2015 Follow Up Appt 6 months Follow Up Appt 6 months [facility] Work Phone: Start: 10-11-2015 End: 10-11-2015 MMM MMM [facility] Work Phone: Start: 10-11-2015 End: 10-11-2015 Follow Up Appt 6 months Follow Up Appt 6 months [facility] Work Phone: Start: 10-11-2015 End: 10-11-2015 MMM MMM [facility] Work Phone: Start: 09-28-2015 End: 03-29-2015 *Hepatic Function Panel *Hepatic Function Panel [facility] Work Phone: Start: 09-28-2015 End: 03-29-2015 Lipid panel [AGGREGATE] *Lipid Profile CC PCP [facility] Work Phone: Start: 03-28-2015 End: 03-29-2015 *Hepatic Function Panel *Hepatic Function Panel [facility] Work Phone: Start: 03-28-2015 End: 03-28-2015 PIERCING ARTIST PIERCING ARTIST [facility] Work Phone: Start: 03-28-2015 End: 03-28-2015 Ecg routine ecg w/least 12 lds w/i&r EKG (In office) [facility] Work Phone: Start: 03-28-2015 End: 03-28-2015 Follow Up Appt 6 months Follow Up Appt 6 months [facility] Work Phone: Start: 03-28-2015 End: 03-29-2015 Lipid panel [AGGREGATE] *Lipid Profile CC PCP [facility] Work Phone: Start: 03-28-2015 End: 03-29-2015 *Hepatic Function Panel *Hepatic Function Panel [facility] Work Phone: Start: 03-28-2015 End: 03-28-2015 PIERCING ARTIST PIERCING ARTIST [facility] Work Phone: Start: 03-28-2015 End: 03-28-2015 Electrocardiogram, complete EKG (In office) [facility] Work Phone: Start: 03-28-2015 End: 03-28-2015 Follow Up Appt 6 months Follow Up Appt 6 months [facility] Work Phone: Start: 03-28-2015 End: 03-29-2015 Lipid panel [AGGREGATE] *Lipid Profile CC PCP [facility] Work Phone: Start: 01-02-2015 End: 03-28-2015 *Hepatic Function Panel *Hepatic Function Panel [facility] Work Phone: Start: 01-02-2015 End: 03-28-2015 Lipid panel [AGGREGATE] *Lipid Profile CC PCP [facility] Work Phone: Start: 01-02-2015 End: 03-28-2015 *Hepatic Function Panel *Hepatic Function Panel [facility] Work Phone: Start: 01-02-2015 End: 03-28-2015 Lipid panel [AGGREGATE] *Lipid Profile CC PCP [facility] Work Phone: Start: 09-29-2014 End: 09-29-2014 Follow Up Appt 6 months Follow Up Appt 6 months [facility] Work Phone: Start: 09-29-2014 End: 09-29-2014 MMM MMM [facility] Work Phone: Start: 09-29-2014 End: 09-29-2014 Follow Up Appt 6 months Follow Up Appt 6 months [facility] Work Phone: Start: 09-29-2014 End: 09-29-2014 MMM MMM [facility] Work Phone: Start: 09-28-2014 End: 09-28-2014 *Hepatic Function Panel *Hepatic Function Panel [facility] Work Phone: Start: 09-28-2014 End: 09-28-2014 Lipid panel [AGGREGATE] *Lipid Profile CC PCP [facility] Work Phone: Start: 09-28-2014 End: 09-28-2014 *Hepatic Function Panel *Hepatic Function Panel [facility] Work Phone: Start: 09-28-2014 End: 09-28-2014 Lipid panel [AGGREGATE] *Lipid Profile CC PCP [facility] Work Phone: Start: 02-16-2014 End: 04-20-2014 *Hepatic Function Panel *Hepatic Function Panel [facility] Work Phone: Start: 02-16-2014 End: 02-16-2014 PIERCING ARTIST PIERCING ARTIST [facility] Work Phone: Start: 02-16-2014 End: 02-16-2014 Ecg routine ecg w/least 12 lds w/i&r EKG (In office) [facility] Work Phone: Start: 02-16-2014 End: 02-16-2014 Follow Up Appt 6 months Follow Up Appt 6 months [facility] Work Phone: Start: 02-16-2014 End: 04-20-2014 Lipid panel [AGGREGATE] *Lipid Profile CC PCP [facility] Work Phone: Start: 02-16-2014 End: 04-20-2014 *Hepatic Function Panel *Hepatic Function Panel [facility] Work Phone: Start: 02-16-2014 End: 02-16-2014 PIERCING ARTIST PIERCING ARTIST [facility] Work Phone: Start: 02-16-2014 End: 02-16-2014 Electrocardiogram, complete EKG (In office) [facility] Work Phone: Start: 02-16-2014 End: 02-16-2014 Follow Up Appt 6 months Follow Up Appt 6 months [facility] Work Phone: Start: 02-16-2014 End: 04-20-2014 Lipid panel [AGGREGATE] *Lipid Profile CC PCP [facility] Work Phone: Start: 09-03-2013 End: 08-17-2013 *Hepatic Function Panel *Hepatic Function Panel [facility] Work Phone: Start: 09-03-2013 End: 08-17-2013 Lipid panel [AGGREGATE] *Lipid Profile CC PCP [facility] Work Phone: Start: 09-03-2013 End: 08-17-2013 *Hepatic Function Panel *Hepatic Function Panel [facility] Work Phone: Start: 09-03-2013 End: 08-17-2013 Lipid panel [AGGREGATE] *Lipid Profile CC PCP [facility] Work Phone: Start: 08-18-2013 End: 02-06-2014 Follow Up Appt 6 months Follow Up Appt 6 months [facility] Work Phone: Start: 08-18-2013 End: 02-06-2014 MMM MMM [facility] Work Phone: Start: 08-18-2013 End: 02-06-2014 Follow Up Appt 6 months Follow Up Appt 6 months [facility] Work Phone: Start: 08-18-2013 End: 02-06-2014 MMM MMM [facility] Work Phone: Start: 02-07-2013 End: 02-07-2013 PIERCING ARTIST PIERCING ARTIST [facility] Work Phone: Start: 02-07-2013 End: 02-07-2013 Follow Up Appt 6 months Follow Up Appt 6 months [facility] Work Phone: Start: 02-07-2013 End: 02-07-2013 PIERCING ARTIST PIERCING ARTIST [facility] Work Phone: Start: 02-07-2013 End: 02-07-2013 Follow Up Appt 6 months Follow Up Appt 6 months [facility] Work Phone: Start: 02-03-2013 End: 02-07-2013 *Hepatic Function Panel *Hepatic Function Panel [facility] Work Phone: Start: 02-03-2013 End: 02-07-2013 Lipid panel [AGGREGATE] *Lipid Profile CC PCP [facility] Work Phone: Start: 02-03-2013 End: 02-07-2013 *Hepatic Function Panel *Hepatic Function Panel [facility] Work Phone: Start: 02-03-2013 End: 02-07-2013 Lipid panel [AGGREGATE] *Lipid Profile CC PCP [facility] Work Phone: Start: 12-08-2012 End: 12-15-2012 *Hepatic Function Panel *Hepatic Function Panel [facility] Work Phone: Start: 12-08-2012 End: 12-08-2012 Follow Up Appt 2 months Follow Up Appt 2 months [facility] Work Phone: Start: 12-08-2012 End: 12-15-2012 Lipid panel [AGGREGATE] *Lipid Profile CC PCP [facility] Work Phone: Start: 12-08-2012 End: 12-08-2012 MMM MMM [facility] Work Phone: Start: 12-08-2012 End: 12-15-2012 *Hepatic Function Panel *Hepatic Function Panel [facility] Work Phone: Start: 12-08-2012 End: 12-08-2012 Follow Up Appt 2 months Follow Up Appt 2 months [facility] Work Phone: Start: 12-08-2012 End: 12-15-2012 Lipid panel [AGGREGATE] *Lipid Profile CC PCP [facility] Work Phone: Start: 12-08-2012 End: 12-08-2012 MMM MMM [facility] Work Phone: Start: 06-04-2012 End: 06-04-2012 Follow Up Appt 6 months Follow Up Appt 6 months [facility] Work Phone: Start: 06-04-2012 End: 06-04-2012 MMM [employer] [facility] Work Phone: Start: 06-04-2012 End: 06-04-2012 Follow Up Appt 6 months Follow Up Appt 6 months [facility] Work Phone: Start: 06-04-2012 End: 06-04-2012 MMM [employer] [facility] Work Phone: Start: 2012 Screening for malignant neoplasm of breast Breast cancer screen [place], [place] Start: 2012 Screening for malignant neoplasm of colon Colon cancer screen colonoscopy [place] Start: 2012 Shingles Vaccine (1 of 2) Shingles Vaccine (1 of 2) [place] Start: 2012 SHINGRIX VACCINE (1 of 2) SHINGRIX VACCINE (1 of 2) [facility] Start: 04-19-2012 End: 04-19-2012 Left Heart Cath Left Heart Cath [facility] Work Phone: Start: 04-19-2012 End: 04-19-2012 Left Heart Cath Left Heart Cath [facility] Work Phone: Start: 04-02-2011 End: 06-04-2012 *Hepatic Function Panel *Hepatic Function Panel [facility] Work Phone: Start: 04-02-2011 End: 04-02-2011 Follow Up Appt 6 months Follow Up Appt 6 months [facility] Work Phone: Start: 04-02-2011 End: 06-04-2012 Lipid panel [AGGREGATE] *Lipid Profile [facility] Work Phone: Start: 04-02-2011 End: 06-04-2012 *Hepatic Function Panel *Hepatic Function Panel [facility] Work Phone: Start: 04-02-2011 End: 04-02-2011 Follow Up Appt 6 months Follow Up Appt 6 months [facility] Work Phone: Start: 04-02-2011 End: 06-04-2012 Lipid panel [AGGREGATE] *Lipid Profile [facility] Work Phone: Start: 2007 COLOGUARD (FIT-DNA) COLOGUARD (FIT-DNA) [facility] Start: [address] [facility] Start: 2007 COLORECTAL CANCER SCREENING COLORECTAL CANCER SCREENING [facility] Start: [address] [facility] Start: 2007 FECAL OCCULT BLOOD FECAL OCCULT BLOOD [facility] Start: [address] [facility] Start: 2002 Diabetes screen Diabetes screen [facility] Start: [address] [facility] Start: 1992 HPV TESTING HPV TESTING [facility] Start: 1983 PAP TESTING PAP TESTING [facility] Start: 1983 Screening for malignant neoplasm of cervix Cervical cancer screen [facility] Start: 1981 Urine microalbumin profile DTAP,TDAP,TD (1 - Tdap) [facility] Start: 1980 HEPATITIS C SCREENING HEPATITIS C SCREENING [facility] Start: 1980 HIV SCREENING HIV SCREENING [facility] Start: 1977 HIV screening HIV screen [place], [place] Start: 1972 Lipid panel [place]id [place] Start: 1962 Creatinine measurement Creatinine monitoring [place], [place] Start: 1962 Hepatitis C screening Hepatitis C screen [place], [place] Start: 1962 Potassium monitoring Potassium monitoring [place] EKG 12 Lead EKG 12 Lead ECG Routine 12/28/2019 3:08 PM EDT [place] Oxygen therapy [[facility]] Initiate Oxygen Therapy Protocol Respiratory Care Routine Daily until discontinued starting 01/03/2020 [place] Immunizations Immunization Date Immunization Notes Care Provider Fa tapan 04-25-2016 pneumococcal vaccine , unspecified formulation; Translations: [PNEUMOCOCCAL VAC POLYVALENT] Lindsay Rocha RN [employer] Work Phone: Payers Date Payer Category Payer Medicaid [employer] [id number] 2022-Present [phone] [address] [place] [address] Medicaid [id number] 2022 Medicaid [id number] 2019 Unknown [id number] 2017 Private Health Insurance [id number] Social History Date Type Detail Facility Start: 01-03-2020 End: 12-04-2022 Tobacco smoking status [facility] Never smoker 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 Start: 03-14-2020 End: 12-04-2022 History of Social function [facility] Start: 03-14-2020 End: 12-04-[address] [facility] National Score (1-10 0), lower number is lower risk Not on file [facility] Medical Equipment Procedure Code Equipment Code Equipment Original Text Equipment Identifier Dates [place] Thk1.65mm P tfe 4x.5in Cardiovascular Sterile - [id number] Start: 05-13-2016 Note 12-06-2022 Telephone Encounter - Apolonia Hawkins APRN.ISIS - 12/06/2022 12:51 PM EDT Note Date & Type Note Facility 12-06-2022 Miscellaneous Notes Formattin g of this note might be different from the original. Patient's presents to [facility] care, patient was seen here on 12/04/22 and was told an antibiotic was being sent to pharmacy, she went to pick it up and they have not received anything. Chart review shows antibiotic treatment noted in assessment and plan but nothing was sent to pharmacy. I will prescribe based on patient's previous note, she is advised to be seen if symptoms do not improve. Original provider copied on this note. Apolonia Hawkins APRN.INSIDE WIREMAN documented in this encounter [facility] Note 12-05-2022 Telephone Encounter - Kristen Bermudez MA - 12/05/2022 8:00 AM EDTTelephone Encounter - Daisha Shahid MA - 12/05/2022 7:37 AM EDT Note Date & Type Note Facility 12-05-2022 Miscellaneous Notes Formattin g of this note might be different from the original. Patient notified of results, verbalized understanding. Kristen Bermudez MA ----- Message from Tung Lyles MD sent at 12/05/2022 7:19 AM EDT ----- negative COVID test documented in this encounter [facility] Progress note 12-04-2022 Note Date & Type Note Facility 12-04-2022 Note HNO ID: [id number] Author: Mary Guerrier RT(R) Service: ? Author Type: Card Folder Type: Progress Notes Filed: 12/04/2022 5:23 PM Note Text: Radiology Service Progress Note PATIENT NAME: Isabella Loo DATE OF SERVICE: December 04, 2022 TIME: 5:04 PM PATIENT IDENTITY VERIFICATION COMPLETED USING TWO (2) IDENTIFIERS: Name and Date of confirmed by patient verbally. FALL SCREENING: Has the patient had 2 falls in the last year or 1 fall with injury or currently using an Ambulatory Assistive Device (Walker, Cane, Wheelchair, Crutches, etc.)? No PATIENT GENDER DATA: Female. status: : No status: NO. PATIENT RELEVANT IMPLANT DATA REVIEWED: Yes RADIOLOGY DEPARTMENT: General X-ray: Exam(s) Completed: Chest X-Ray PERIPHERAL IV DATA: Not applicable SIGNED BY: RT Edith(R) December 04, 2022 5:04 PM [facility] Progress note 12-04-2022 Note Date & Type Note Facility 12-04-2022 Note HNO ID: [id number] Author: William Urban APRN.INSIDE WIREMAN Service: ? Author Type: Nurse Practitioner Type: Progress Notes Filed: 12/04/2022 5:56 PM Note Text: Subjective HPI HPI Isabella Loo is a 62 year old female who presents today for CC of cough, congestion. This started 5 days ago. Has tried otc medication for relief. Symptoms are worsened by nothing. Risk factors hx of asthma, using inhalers. nonsmoker. .Patient presents with: Cough: Cough, congestion, fatigue x 5 days PAST MEDICAL HISTORY Diagnosis Date Aortic stenosis Aortic valve regurgitation Asthma Diabetic retinopathy associated with type 2 diabetes mellitus (HCC) Endocarditis 01/2016 HTN (hypertension) Hyperlipidemia Hypertrophic cardiomyopathy (HCC) obstructive...s/p myectomy ROYA (obstructive sleep apnea) uses c-pap Psoriasis PAST SURGICAL HISTORY Procedure Laterality Date MIDLINE INSERTION/CONSULT 05/18/2016 MYECTOMY 2003 for hypertrophic cardiomyopathy PICC LINE INSERT/CONSULT 05/20/2016 SHX AORTIC VALVE REPLACEMENT SHX MITRAL VALVE REPLACEMENT TUBAL LIGATION HX Bilateral VAGINAL HYSTERECTOMY 12/2019 ALLERGIES Adhesive Tape (Rosins), Ciprofloxacin, Penicillin, and Sulfa (Sulfonamide Antibiotics) MEDICATIONS Magnesium Oxide 500 mg tab Take by mouth. warfarin sodium (WARFARIN ORAL) Take by mouth. melatonin 3 mg capsules Take 3 mg by mouth daily at bedtime. cholecalciferol (VITAMIN D-3) 5,000 unit tab Take 5,000 Units by mouth once daily. diclofenac (VOLTAREN) 1 % topical gel Apply 2 g to affected area four times daily. DULoxetine (CYMBALTA) 60 mg capsule Take 1 capsule by mouth every morning. fluticasone (FLONASE) 50 mcg/actuation nasal spray Use 2 Sprays in each nostril once daily. Omeprazole 40 mg capsule Take 1 capsule by mouth once daily. potassium chloride SR (MICRO-K) 10 mEq CR capsule Take 20 mEq by mouth once daily. loratadine (CLARITIN) 10 mg tablet Take 1 tablet by mouth once daily. docusate sodium (COLACE ORAL) Take 1 tablet by mouth once daily. torsemide (DEMADEX) 20 mg tablet Take 1 tablet by mouth once daily. (Patient taking differently: Take 40 mg by mouth once daily.) albuterol HFA (PROVENTIL HFA, VENTOLIN HFA) 90 mcg/actuation inhaler Inhale 2 Puffs as instructed every 4 hours as needed. diphenhydrAMINE (BENADRYL) 25 mg capsule Take 25 mg by mouth once daily. acetaminophen (TYLENOL) 325 mg tablet Take 2 tablets by mouth every 4 hours as needed (for mild pain). pravastatin (PRAVACHOL) 20 mg tablet Take 1 tablet by mouth daily at bedtime. metoprolol tartrate, short acting, (LOPRESSOR) 25 mg tablet Take 0.5 tablets by mouth every 12 hours. therapeutic multivitamin (THERA VITAMIN) tablet Take 1 tablet by mouth daily with breakfast. ergocalciferol 50,000 unit capsule (VITAMIN D2, DRISDOL) Take 50,000 Units by mouth one time a week. (Patient not taking: Reported on 12/04/2022) metFORMIN (GLUCOPHAGE) 500 mg tablet metFORMIN Metformin Hcl Active 250 MG DAILY August 16, 2019 3:28pm 08-16-2019 [facility] ([id number]) guaiFENesin (MUCINEX) 600 mg 12 hr tablet Take 1 tablet by mouth every 12 hours as needed (congestion). (Patient not taking: Reported on 07/07/2020 ) potassium chloride ER (K-DUR, KLOR-CON) 10 mEq tablet Take 1 tablet by mouth once daily. Take 1 tablet by mouth once daily for 7 days. (Patient not taking: Reported on 01/20/2019 ) cefTRIAXone (ROCEPHIN) 2 gram injection Inject 2 g intravenously once daily. (Patient not taking: Reported on 07/07/2020 ) aspirin 81 mg chewable tablet Take 1 tablet by mouth once daily. (Patient not taking: Reported on 12/04/2022) oxyCODONE IR (ROXICODONE) 5 mg immediate release tablet Take 1-2 tablets by mouth every 6 hours as needed (For moderate to severe pain). pantoprazole DR (PROTONIX) 20 mg tablet Take 1 tablet by mouth DAILY (6 AM). (Patient not taking: Reported on 01/20/2019 ) FAMILY HISTORY Problem Relation Age of Onset Heart Father 50 heart attack Stroke Father of a stroke Hypertension Father Hypertension Mother Hyperlipidemia Mother Social History Tobacco Use Smoking status: Never Smokeless tobacco: Never Substance Use Topics Alcohol use: No Drug use: No Review of Systems Constitutional: Negative for fever. HENT: Positive for congestion. Negative for ear pain, nosebleeds and sore throat. Respiratory: Positive for cough. Negative for shortness of breath and wheezing. Musculoskeletal: Negative for neck pain. Objective Blood pressure 140/78, pulse 76, temperature 36.3 ?C (97.4 ?F), temperature source Tympanic, resp. rate 18, weight 115.4 kg (254 lb 6.4 oz), SpO2 96 %. Physical Exam Constitutional: General: She is not in acute distress. Appearance: She is not toxic-appearing or diaphoretic. HENT: Head: Normocephalic and atraumatic. Cardiovascular: Rate and Rhythm: Normal rate and regular rhythm. Heart sounds: S1 normal and S2 norm (more content not included)... [facility] Instructions 12-04-2022 Patient Instructions Note Date & Type Note Facility 12-04-2022 Instructions William Urban APRN.INSIDE WIREMAN - 12/04/2022 5:48 PM EDT ASSESSMENT/PLAN: 1. Sinobronchitis - ICD9: 473.9, 490, ICD10: J32.9, J40 (primary diagnosis) - Will begin treatment with as per antibiotic as written, see orders - Supportive care with plenty of fluids, rest, and analgesia prn. - Follow up in 3-5 with pcp -If you experience chest pain/shortness of breath go to ER - COVID NAAT, ROUTINE documented in this encounter [facility] History of Present illness Narrative 12-04-2022 William Urban APRN.CNP - 12/04/2022 4:59 PM EDT Note Date & Type Note Facility 12-04-2022 History of Presen t illness Narrative Subjective HPI HPI Isabella Loo is a 62 year old female who presents today for CC of cough, congestion. This started 5 days ago. Has tried otc medication for relief. Symptoms are worsened by nothing. Risk factors hx of asthma, using inhalers. nonsmoker. .Patient presents with: Cough: Cough, congestion, fatigue x 5 days PAST MEDICAL HISTORY Diagnosis Date Aortic stenosis Aortic valve regurgitation Asthma Diabetic retinopathy associated with type 2 diabetes mellitus (HCC) Endocarditis 01/2016 HTN (hypertension) Hyperlipidemia Hypertrophic cardiomyopathy (HCC) obstructive...s/p myectomy ROYA (obstructive sleep apnea) uses c-pap Psoriasis PAST SURGICAL HISTORY Procedure Laterality Date MIDLINE INSERTION/CONSULT 05/18/2016 MYECTOMY 2003 for hypertrophic cardiomyopathy PICC LINE INSERT/CONSULT 05/20/2016 SHX AORTIC VALVE REPLACEMENT SHX MITRAL VALVE REPLACEMENT TUBAL LIGATION HX Bilateral VAGINAL HYSTERECTOMY 12/2019 ALLERGIES Adhesive Tape (Rosins), Ciprofloxacin, Penicillin, and Sulfa (Sulfonamide Antibiotics) MEDICATIONS Magnesium Oxide 500 mg tab Take by mouth. warfarin sodium (WARFARIN ORAL) Take by mouth. melatonin 3 mg capsules Take 3 mg by mouth daily at bedtime. cholecalciferol (VITAMIN D-3) 5,000 unit tab Take 5,000 Units by mouth once daily. diclofenac (VOLTAREN) 1 % topical gel Apply 2 g to affected area four times daily. DULoxetine (CYMBALTA) 60 mg capsule Take 1 capsule by mouth every morning. fluticasone (FLONASE) 50 mcg/actuation nasal spray Use 2 Sprays in each nostril once daily. Omeprazole 40 mg capsule Take 1 capsule by mouth once daily. potassium chloride SR (MICRO-K) 10 mEq CR capsule Take 20 mEq by mouth once daily. loratadine (CLARITIN) 10 mg tablet Take 1 tablet by mouth once daily. docusate sodium (COLACE ORAL) Take 1 tablet by mouth once daily. torsemide (DEMADEX) 20 mg tablet Take 1 tablet by mouth once daily. (Patient taking differently: Take 40 mg by mouth once daily.) albuterol HFA (PROVENTIL HFA, VENTOLIN HFA) 90 mcg/actuation inhaler Inhale 2 Puffs as instructed every 4 hours as needed. diphenhydrAMINE (BENADRYL) 25 mg capsule Take 25 mg by mouth once daily. acetaminophen (TYLENOL) 325 mg tablet Take 2 tablets by mouth every 4 hours as needed (for mild pain). pravastatin (PRAVACHOL) 20 mg tablet Take 1 tablet by mouth daily at bedtime. metoprolol tartrate, short acting, (LOPRESSOR) 25 mg tablet Take 0.5 tablets by mouth every 12 hours. therapeutic multivitamin (THERA VITAMIN) tablet Take 1 tablet by mouth daily with breakfast. ergocalciferol 50,000 unit capsule (VITAMIN D2, DRISDOL) Take 50,000 Units by mouth one time a week. (Patient not taking: Reported on 12/04/2022) metFORMIN (GLUCOPHAGE) 500 mg tablet metFORMIN Metformin Hcl Active 250 MG DAILY August 16, 2019 3:28pm 08-16-2019 [facility] ([id number]) guaiFENesin (MUCINEX) 600 mg 12 hr tablet Take 1 tablet by mouth every 12 hours as needed (congestion). (Patient not taking: Reported on 07/07/2020 ) potassium chloride ER (K-DUR, KLOR-CON) 10 mEq tablet Take 1 tablet by mouth once daily. Take 1 tablet by mouth once daily for 7 days. (Patient not taking: Reported on 01/20/2019 ) cefTRIAXone (ROCEPHIN) 2 gram injection Inject 2 g intravenously once daily. (Patient not taking: Reported on 07/07/2020 ) aspirin 81 mg chewable tablet Take 1 tablet by mouth once daily. (Patient not taking: Reported on 12/04/2022) oxyCODONE IR (ROXICODONE) 5 mg immediate release tablet Take 1-2 tablets by mouth every 6 hours as needed (For moderate to severe pain). pantoprazole DR (PROTONIX) 20 mg tablet Take 1 tablet by mouth DAILY (6 AM). (Patient not taking: Reported on 01/20/2019 ) FAMILY HISTORY Problem Relation Age of Onset Heart Father 50 heart attack Stroke Father of a stroke Hypertension Father Hypertension Mother Hyperlipidemia Mother Social History Tobacco Use Smoking status: Never Smokeless tobacco: Never Substance Use Topics Alcohol use: No Drug use: No Review of Systems Constitutional: Negative for fever. HENT: Positive for congestion. Negative for ear pain, nosebleeds and sore throat. Respiratory: Positive for cough. Negative for shortness of breath and wheezing. Musculoskeletal: Negative for neck pain. Objective Blood pressure 140/78, pulse 76, temperature 36.3 C (97.4 F), temperature source Tympanic, resp. rate 18, weight 115.4 kg (254 lb 6.4 oz), SpO2 96 %. Physical Exam Constitutional: General: She is not in acute distress. Appearance: She is not toxic-appearing or diaphoretic. HENT: Head: Normocephalic and atraumatic. Cardiovascular: Rate and Rhythm: Normal rate and regular rhythm. Heart sounds: S1 normal and S2 normal. Murmur heard. Systolic murmur is present with a grade of 4/6. Pulmonary: Effort: Pulmonary effort is normal. Breath sounds: Normal breath sounds. Lymphadenopathy: Cervical: No cervical adenopathy. Right cervical: No superficial cervical adenopathy. Left cervical: No superficial cervical adenopathy. Neurological: Mental Status: She is alert and oriented to person, place, and time. Gait: Gait is intact. ASSESSMENT/PLAN: 1. Sinobronchitis - ICD9: 473.9, 490, ICD10: J32.9, J40 (primary diagnosis) - Will begin treatment with as per antibiotic as written, see orders - Supportive care with plenty of fluids, rest, and analgesia prn. - Follow up in 3-5 with pcp -If you experience chest pain/shortness of breath go to ER - COVID NAAT, ROUTINE 2. Acute cough - ICD9: 786.2, ICD10: R05.1 - XR CHEST 2V FRONTAL/LAT IMPRESSION: Possible trace right pleural effusion Dictated by : MD William MAHER APRN.CNP documented in this encounter [facility] History of Past illness Narrative 2016 Note Date & Type Note Facility documented as of this encounter (statuses as of 12/05/2022) [facility] History of Past illness Narrative 2016 Note Date & Type Note Facility documented as of this encounter (statuses as of 12/05/2022) [facility] History of Past illness Narrative 2016 Note Date & Type Note Facility documented as of this encounter (statuses as of 12/06/2022) [facility] Evaluation note Note Date & Type Note Facility documented in this encounter [facility] Summary Purpose Family History No Family History Records FoundNo Family History Records FoundNo Family History Records Found Advance Directives No Advanced Directives Records FoundLatest Code Status on File Code Status Date Activated Date Inactivated Comments Full Code 01/03/2020 6:28 PM Full Code 01/03/2020 11:56 AM 01/03/2020 6:01 PM Hospital Course Note Subacute Nurse Onc Discharge Summary Pa tient Name: Isabella Loo Patient : 1960 Primary Care Physician: DOUGLAS GRIDER CNP Admit Date: 01/03/2020 Attending Provider: Isaac Mcneil MD Principal Diagnosis: endometrial adenocarcinoma Other Diagnosis: Post-operative state [Z98.890] Patient Active Problem List Diagnosis ? Post-operative state ? Endometrial cancer (HCC) obesity with BMI > 35 Surgical Operations & Procedures: RTLH, BSO, LNS (01/03/20) Consultations: none Pertinent Findings & Procedures: Isabella Loo is a 59 y.o. female admitted for postop care following above procedure. Hgb was stable on POD#1. Lovenox and coumadin were restarted on POD#1. She will continue her lovenox bridge as an outpatient, which will be managed by Dr. Whelan. She met all postoperative milestones on POD#1. Hospital course normal, discharged home on 01/03. Follow up in 2 weeks. Discharge instructions reviewed and questions answered. Course of patient: normal Discharge to: Home Wound Care: keep w (more content not included)... Discharge Instructions * Instructions* Vesna White DO - 01/03/2020 Please follow your post operative care instructions given to you by your Manager Grocery Oncologist's office at your pre operative visit. Please call the office with questions or concerns and be sure to follow up at your scheduled post operative visit. documented in this encounter* Instructions* Alise Block RN - 12/28/2019 Please bring your [employer] Surgical Information folder on the day of surgery. Please hallie the last dose taken (date and time ) on your Daily Medications List provided in your After Visit Summary. Please bring a photo ID and insurance information NO ORAL DIABETIC MEDICATION THE MORNING OF SURGERY (METFORMIN) GLUCOPHAGE TAKE the following medications the morning of your surgery ALBUTEROL IF NEEDED, ASPIRIN, DULOXETINE(CYMBALTA), LORATADINE (CLARITIN), METOPROLOL TARTRATE (LOPRESSOR), OMEPRAZOLE (PRILOSEC) ADMINISTER ENOXAPARIN (LOVENOX) PER DR WHELAN'S INSTRUCTION You may take your prescription pain medications. You may take Tylenol (Acetaminophen) if needed forpain. No Motrin, Ibuprofen, or Advil 24 hours prior to surgery, or longer if instructed by your surgeon. No Aleve or Naprosyn 3 days prior to surgery, or longer if instructed by your surgeon. CONTINUE ASPIRIN 81MG Additional instructions CHG shower kit and instructions given to patient. Please remember to use half the bottle the night before surgery and half the bottle the day of surgery. Clean sheets and clothes should be used aftereach use. FOLLOW ANY OTHER INSTRUCTIONS THAT DR MCNEIL MAY HAVE GIVEN YOU You will receive a reminder call the day before surgery with your Same Day Surgery arrival time. If you have specific questions, please call your surgeon. * Attachments The following attachments cannot be sent through Care Everywhere. * Laparoscopic Hysterectomy: Post-op (Finnish) documented in this encounter History of Present Illness * Naya Starks RN - 01/04/2020 11:37 AM EDT Discharge instructions given and verbailzes understanding of these * Nataliya Hayes MD - 01/04/2020 5:49 AM EDT Gynecologic Oncology Progress Note Date: 01/04/2020 Time: 5:49 AM Isabella Loo 59 y.o. female POD#1 s/p RTLH, BSO, LNS Patient seen and examined. She was not able to sleep last night because she could not get comfortable in her bed. Pain is controlled. Patient is tolerating oral intake. She is urinating. She denies any vaginal bleeding. She is ambulating without difficulty. She denies Fever/Chills, Chest Pain, SOB,N/V. Vitals: Vitals: 01/03/20 1811 01/03/20 1942 01/03/20220201/03/202203 BP: 131/64 129/69 Pulse: 59 71 Resp: 18 16 16 16 Temp: 98.1 F (36.7 C) 98.1 F (36.7 C) TempSrc: Oral Oral SpO2: 93% 95% 95% Weight: Height: Intake/Output: Current Shift: No intake/output data recorded. Physical Exam: Gen: NAD, alert and cooperative HEENT: Normocephalic, atraumatic, EOMI, MMM Resp: CTABL, no WRR Card: RRR, no murmur Abd: soft, NT/ND, no rebound, no guarding. Present BS. 5 cm area of ecchymosis on LLQ (stable from admission), 3 cm area of ecchymosis on RLQ (stable from admission) Incisions: C/D/I Ext: No LE edema, no calf tenderness or swelling Medications: Current Facility-Administered Medications Medication Dose Route Frequency Provider Last Rate Last Dose albuterol (PROVENTIL) nebulizer solution 2.5 mg 2.5 mg Nebulization Q6H PRN Nataliya Hayes MD 2.5 mg at 01/03/202202 docusate sodium (COLACE) capsule 100 mg 100 mg Oral BID PRN Nataliya Hayes MD 100 mg at DULoxetine (CYMBALTA) extended release capsule 60 mg 60 mg Oral Daily Nataliya Hayes MD hydrOXYzine (ATARAX) tablet 5 mg 5 mg Oral Nightly Nataliya Hayes MD 5 mg at 09/29/20 2058 cetirizine (ZYRTEC) tablet 5 mg 5 mg Oral Daily Nataliya Hayes MD melatonin tablet 6 mg 6 mg Oral Nightly PRN Nataliya Hayes MD 6 mg at 01/03/202100 metoprolol tartrate (LOPRESSOR) tablet 25 mg 25 mg Oral BID Nataliya Hayes MD 25 mg at 01/03/202057 pantoprazole (PROTONIX) tablet 40 mg 40 mg Oral QAM AC Nataliya Hayes MD 40 mg at 01/04/20 0547 torsemide (DEMADEX) tablet 40 mg 40 mg Oral Daily Nataliya Hayes MD sodium chloride flush 0.9 % injection 10 mL 10 mL Intravenous 2 times per day Nataliya Hayes MD sodium chloride flush 0.9 % injection 10 mL 10 mL Intravenous PRN Nataliya Hayes MD acetaminophen (TYLENOL) tablet 650 mg 650 mg Oral Q4H PRN Nataliya Hayes MD promethazine (PHENERGAN) tablet 12.5 mg 12.5 mg Oral Q6H PRN Nataliya Hayes MD Or ondansetron (ZOFRAN) injection 4 mg 4 mg Intravenous Q6H PRN Nataliya Hayes MD oxyCODONE (ROXICODONE) immediate release tablet 5 mg 5 mg Oral Q4H PRN Nataliya Hayes MD 5 mg at01/04/20317 insulin lispro (HUMALOG) injection vial 0-6 Units 0-6 Units Subcutaneous TID WC Nataliya Hayes MD insulin lispro (HUMALOG) injection vial 0-3 Units 0-3 Units Subcutaneous Nightly Nataliya Hayes MD 1 Units at 01/03/202207 glucose (GLUTOSE) 40 % oral gel 15 g 15 g Oral PRN Nataliya Hayes MD dextrose 50 % IV solution 12.5 g Intravenous PRN Nataliya Hayes MD glucagon (rDNA) injection 1 mg 1 mg Intramuscular PRN Nataliya Hayes MD dextrose 5 % solution 100 mL/hr Intravenous PRN Nataliya Hayes MD guaiFENesin (MUCINEX) extended release tablet 600 mg 600 mg Oral BID Guerrero Mir DO 600 mg at01/03/202206 Diagnostics: No results found. Labs: Admission on 01/03/2020 Component Date Value Ref Range Status POC Glucose 01/03/2020 211* 70 - 100 mg/dL Final Comment: Test performed by glucose meter. Results may be 10%-15% lower than serum/plasma values. (CLIA ID [id number]) Protime 01/03/2020 11.1 9.0 - 12.0 s Final . INR 01/03/2020 1.0 0.9 - 1.1 NA Final Comment: Recommended Anticoagulant Therapy: SEE BELOW ----- INR of 2.0 - 3.0 : - Prophylaxis of Venous Thrombosis (high-risk surgery) - Treatment of Venous Thrombosis - Treatment of Pulmonary Embolism (Includes tissue heart valves, Acute Myocardial Infarction to prevent systemic embolism, Valvular Heart Disease, and Atrial Fibrillation) ----- INR of 2.5 - 3.5 : - Mechanical Prosthetic Valves (high risk) - If oral anticoagulant therapy is used to prevent Myocardial Infarction POC Glucose 01/03/2020 161* 70 - 100 mg/dL Final Comment: Test performed by glucose meter. Results may be 10%-15% lower than serum/plasma values. (CLIA ID [id number]) WBC 01/04/2020 12.3* 3.6 - 10.7 10*3/uL Final RBC 01/04/2020 4.05 3.80 - 5.20 10*6/uL Final Hemoglobin 01/04/2020 12.6 11.7 - 16.0 g/dL Final Hematocrit 01/04/2020 37.4 35.0 - 47.0 % Final MCV 01/04/2020 92.4 79.0 - 98.0 fL Final MCH 01/04/2020 31.2 26.0 - 34.0 pg Final MCHC 01/04/2020 33.8 32.0 - 36.0 % Final RDW 01/04/2020 13.8 11.5 - 14.5 % Final Platelets 01/04/2020 230 140 - 440 10*3/uL Final MPV 01/04/2020 9.1 7.4 - 10.4 fL Final POC Glucose 01/03/2020 210* 70 - 100 mg/dL Final Comment: Test performed by glucose meter. Results may be 10%-15% lower than serum/plasma values. (CLIA ID [id number]) Assessment/Plan: Isabella Loo 59 y.o. female POD#1 s/p RTLH, BSO, LNS Postoperative state - Doing well, vitals stable - s/p mendoza catheter - Encourage ambulation and use of incentive spirometer - Pain controlled - DVT Proph: SCDs, lovenox, warfarin - carb controlled diet Mitral and aortic valve replacement - hgb stable - restart home lovenox and coumadin - will follow with Dr. Whelan for management of lovenox bridge T2DM - SSI - BGTs AC/HS - carb control diet LBBB, HFrEF, PAH - cont home meds HTN - cont home meds ROYA - cont home CPAP Obesity - BMI 39 Endometrial adenocarcinoma - final pathology pending - will follow up as outpatient Anticipate discharge home today. Will discuss plan of care with attending. Active Problems: Post-operative state Endometrial cancer (HCC) Resolved Problems: * No resolved hospital problems. * Nataliya Hayes MD 01/04/2020, 5:49 AM Associated attestation - Isaac Mcneil MD - 01/04/2020 8:57 AM EDT Patient discussed with the residents. Doing well postoperatively. Hemoglobin level stable. Okay to discharge home with continued Lovenox and Coumadin. * Kristy Najera RN - 01/03/2020 3:52 PM EDT Patients updated documented in this encounter Assessments Diagnosis Post-operative state Other postprocedural status Endometrial cancer (HCC) Malignant neoplasm of corpus uteri, except isthmus Additional Source Comments INFORMATION SOURCE (unrecogn ized section and content) DATE CREATED AUTHOR AUTHOR'S ORGANIZ ATION 01/16/2020 [facility] DATE CREATED AUTHOR AUTHOR'S ORGANIZ ATION 12/07/2022 [facility] Source Comments (unrecognize d section and content) In the event this informatio n is protected by the Federal Confidentiality of Alcohol and Drug Abuse Patient Records regulations: The Federal rules restrict any use of the information to criminally investigate or prosecute any alcohol or drug abuse patient.[facility] the event this information is protected by the Federal Confidentiality of Alcohol and Drug Abuse Patient Records regulations: The Federal rules restrict any use of the information to criminally investigate or prosecute any alcohol or drug abuse patient.[facility] the event this information is protected by the Federal Confidentiality of Alcohol and Drug Abuse Patient Records regulations: The Federal rules restrict any use of the information to criminally investigate or prosecute any alcohol or drug abuse patient.[facility] Reason for Visit (unrecogniz ed section and content) Reason Comments Results Reason Comments Medication Problem Care Teams (unrecognized sec tion and content) Associate Research Scientist Relationship Specialty Start Date End Date Gianluca Luna CNP [address] [place] [address] PCP - General Internal Medicine 07/10/21 Jj Bertrand Primary Staff Physician Cardiology 06/22/18 FOR RECORDS PERTAINING TO PATIENTS WHO ARE OR HAVE BEEN ENROLLED IN A CHEMICAL DEPENDENCY/SUBSTANCEABUSE PROGRAM, SOME INFORMATION MAY BE OMITTED. This clinical summary was aggregated from multiple sources. Caution should be exercised in using it in the provision of clinical care. This summary normalizes information from multiple sources, and as a consequence, information in this document may materially change the coding, format and clinical context of patient data. In addition, data may be omitted in some cases. CLINICAL DECISIONS SHOULD BE BASED ON THE PRIMARY CLINICAL RECORDS. [facility]. provides no warranty or guarantee of the accuracy or completeness of information in this document.
--- NOTE | 2023-04-06 06:40 | RAD_ITS ---
INDICATION: fever EXAMINATION/TECHNIQUE: X-RAY - XR Chest 1 View COMPARISON: Prior study dated: 02/13/2022 FINDINGS: LINES/DEVICES: None. LUNGS: No consolidation, edema or effusion. No pneumothorax. MEDIASTINUM AND CARDIOVASCULAR STRUCTURES: Persistent enlargement of the cardiac silhouette. Status post median sternotomy and valve replacement. BONES AND SOFT TISSUES: Unremarkable. RAD/Chest 1 View (Portable) IMPRESSION: 1. Enlargement of the cardiac silhouette. 2. No active pulmonary disease. Electronically Signed: Jeff Vallejo MD at 8:48 EST ,
[2023-04-06 06:41] LABS: Anion Gap 7 (5-15); BUN 14 mg/dL (7-18); BUN/Creat Ratio 13.9 RATIO (10-20); Calcium,Total 8.4 mg/dL (8.5-10.1); Chloride 90 mmol/L (98-107); Creatinine, Serum 1.01 mg/dL (0.55-1.02); EST Glomerular Filtration Rate 59 mL/min (>60); Est Glom Filt Rate - Afr Amer 72 mL/min (>60); Glucose 151 mg/dL (74-106); Magnesium 1.6 mg/dL (1.6-2.6); Potassium 3.2 mmol/L (3.5-5.1); Sodium Level 127 mmol/L (136-145)
[2023-04-06 06:47] LABS: International Normalized Ratio 1.6; Prothrombin Time (Protime)PT. 19.6 SECONDS (11.7-14.9)
[2023-04-06 07:20] LABS: Lactic Acid 1.4 mmol/L (0.4-1.9)
[2023-04-06 07:25] VITALS: BP 112/61; PULSE 98; RESP 22; TEMP 37.2; O2SAT 99
[2023-04-06 07:27] LABS: Mucous, Urine 0 SEEN /hpf (<or=2+)
[2023-04-06 07:29] LABS: Color, Urine Yellow (Yellow); Glucose, Dipstick Normal (Normal); Ketone-Dipstick Negative (Negative); Leukocyte Esterase-Dipstick 25 /ul (Negative); Nitrite-Dipstick Negative (Negative); Occult Blood-Urine 25 /ul (Negative); Protein-Dipstick 30 mg/dl (Negative); Urine Bilirubin Dipstick Negative (Negative); Urine Clarity Sl. Cloudy (Clear); Urine Urobilinogen 1 mg/dl (Normal)
[2023-04-06 07:37] LABS: Bacteria 2+ /hpf (None Seen); Red Blood Cells-Urine 0-5 SEEN /hpf (0-5); Squamous Epithelial Cells - UA 0-5 SEEN /hpf (5-10); White Blood Cells 0-5 SEEN /hpf (0-5)
--- NOTE | 2023-04-06 07:49 | EX.ED.DYSGE1 ---
HPI History of Present Illness Chief Complaint: General Illness Informant: patient and spouse/S.O. Narrative Narrative: Patient is a 62-year-old female with past medical history of hypertension hyperlipidemia obstructive sleep apnea and atrial fibrillation on Coumadin. She states for the past 7 days she has had bouts of loose stool/diarrhea with muscle aches and spasms and feeling of being unwell. She states that there is been no known sick contacts and she has tried home COVID test which were negative. Denies any recent travel outside the country livestock exposure or recent antibiotic use. She states that as her symptoms or not improving and she feels like she becoming dehydrated and developing further weakness she presents for evaluation [facility] Medical History Allergic rhinitis Anxiety Asthma Cancer Chronic diastolic (congestive) heart failure Congenital subaortic stenosis of membranous type COVID-19 (05/01/21) CPAP (continuous positive airway pressure) dependence Cutaneous abscess Endometrial cancer Essential (primary) hypertension History of bacterial endocarditis HLD (hyperlipidemia) Hypertension Left bundle branch block Morbid obesity Narcolepsy Nonrheumatic aortic (valve) stenosis with insufficiency Nonrheumatic mitral valve insufficiency Obesity Obstructive sleep apnea On home oxygen therapy Positive GBS test Psoriasis Secondary pulmonary arterial hypertension Streptococcal septicemia Subvalvar aortic stenosis Wears dentures Wears glasses Home Medications multivitamin with folic acid 400 mcg tablet 1 tab PO DAILY SUPPLEMETN 05/30/16 [History Last Taken 07/10/20] metformin 500 mg tablet 250 mg PO DAILY DM 08/16/19 [History Last Taken 07/10/20] melatonin 5 mg capsule 5 mg PO QHS SLEEP 05/21/20 [History Last Taken 07/09/20] omeprazole 40 mg capsule,delayed release 40 mg PO DAILY GERD 05/21/20 [History Last Taken 02/04/21] acetaminophen 500 mg tablet (Tylenol Extra Strength) 1,000 mg PO DAILY 11/08/20 [History Last Taken Unknown] cholecalciferol (vitamin D3) 1,250 mcg (50,000 unit) capsule 1,250 mcg PO QWEEK supplement 11/08/20 [History Last Taken 08/26/21] duloxetine 60 mg capsule,delayed release (Cymbalta) 120 mg PO DAILY 11/08/20 [History Last Taken 09/01/21 10:00] warfarin 5 mg tablet 2.5 mg PO DAILY 11/22/20 [History Last Taken 01/31/21] metoprolol tartrate 25 mg tablet 25 mg PO BID HEART #180 tabs 12/11/20 [Rx Last Taken 02/04/21] diphenhydramine HCl 25 mg capsule (Benadryl) 25 mg PO QHS 01/30/21 [History Last Taken Unknown] benzonatate 200 mg capsule 200 mg PO TID PRN cough #90 caps 08/30/21 [Rx Last Taken Unknown] warfarin 7.5 mg tablet 7.5 mg PO .COMPLEX #90 tabs 11/18/21 [Rx Last Taken Unknown] gabapentin 100 mg capsule 100 mg PO BID 02/04/22 [History Last Taken Unknown] gabapentin 100 mg capsule 300 mg PO QHS 02/04/22 [History Last Taken Unknown] warfarin 5 mg tablet 5 mg PO .COMPLEX #90 tabs 09/24/22 [Rx Last Taken Unknown] pravastatin 40 mg tablet 20 mg (1/2 x 40 mg) PO QHS CHOLESTEROL #45 tabs 10/20/22 [Rx Last Taken Unknown] clobetasol 0.05 % topical cream 1 applic topical BID PRN 11/05/22 [History Last Taken Unknown] magnesium oxide 500 mg tablet 500 mg PO DAILY 11/05/22 [History Last Taken Unknown] albuterol sulfate 90 mcg/actuation aerosol inhaler (Ventolin HFA) 2 puff inhalation Q4H PRN shortness of breath or wheezing #8.5 grams 01/14/23 [Rx Last Taken Unknown] allergy shot IM .weekly 01/14/23 [History Last Taken Unknown] azelastine 137 mcg (0.1 %) nasal spray aerosol 2 spray intranasal BID #30 mL 01/14/23 [Rx Last Taken Unknown] budesonide-formoterol HFA 160 mcg-4.5 mcg/actuation aerosol inhaler (Symbicort) 2 puff inhalation BID #10.2 grams 01/14/23 [Rx Last Taken Unknown] doxycycline hyclate 100 mg tablet 100 mg PO BID #20 tabs 01/14/23 [Rx Last Taken Unknown] fluticasone propionate 50 mcg/actuation nasal spray,suspension (Flonase Allergy Relief) 2 spray intranasal QDAY #1 device 01/14/23 [Rx Last Taken Unknown] guaifenesin 600 mg tablet, extended release 12 hr (Mucinex) 1,200 mg (2 x 600 mg) PO BID #60 tabs 01/14/23 [Rx Last Taken Unknown] ipratropium 0.5 mg-albuterol 3 mg (2.5 mg base)/3 mL nebulization soln 3 ml inhalation Q4H PRN PRN SOB &/OR WHEEZING #180 mL 01/14/23 [Rx Last Taken Unknown] loratadine 10 mg tablet 10 mg PO DAILY ALLERGIES #90 tabs 01/14/23 [Rx Last Taken Unknown] levofloxacin 750 mg tablet 750 mg PO DAILY #7 tabs 01/19/23 [Rx Last Taken Unknown] prednisone 20 mg tablet 60 mg (3 x 20 mg) PO QDAY #15 tabs 01/27/23 [Rx Last Taken Unknown] potassium chloride 20 mEq tablet,extended release(part/cryst) (Klor-Con M) 20 meq PO .COMPLEX this RX is for dose correction #270 tabs 02/02/23 [Rx Last Taken Unknown] torsemide 20 mg tablet 40 mg (2 x 20 mg) PO DAILY FLUID #180 tabs 03/27/23 [Rx Last Taken Unknown] diphenoxylate-atropine 2.5 mg-0.025 mg tablet (Lomotil) 1 tab PO 4X/DAY PRN PRN diarrhea 5 days #20 tabs 04/06/23 [Rx Last Taken Unknown] lorazepam 1 mg tablet (Ativan) 1 mg PO TID PRN Muscle cramps/spasms 5 days #15 tabs 04/06/23 [Rx Last Taken Unknown] ondansetron 4 mg disintegrating tablet 4 mg PO TID PRN nausea and vomiting #21 tabs 04/06/23 [Rx Last Taken Unknown] Allergy/AdvReac Type Severity Reaction Status Date / Time clarithromycin [From Biaxin] Allergy Severe SOB, hives Verified 04/06/23 05:53 and swelling cephalexin [Cephalexin] Allergy Rash Verified 04/06/23 05:53 simvastatin Allergy Rash Verified 04/06/23 05:53 sulfamethoxazole Allergy Rash Verified 04/06/23 05:53 trimethoprim Allergy Rash/leg Verified 04/06/23 05:53 swelling bupropion AdvReac Severe worsened Verified 04/06/23 05:53 depression adhesive tape AdvReac Itching Verified 04/06/23 05:53 ciprofloxacin AdvReac Itching Verified 04/06/23 05:53 Macrolide Antibiotics AdvReac Unknown Verified 04/06/23 05:53 Penicillins AdvReac Unknown Verified 04/06/23 05:53 Family History (Reviewed 01/14/23 @ 10:02 by Corina Gleason GEOGRAPHIC INFORMATION SYSTEMS ANALYST, GEOGRAPHIC INFORMATION SYSTEMS ANALYST-C) Father CAD (coronary artery disease) Hypertension Mother , age 55 Sudden cardiac Hypertension Abdominal aortic aneurysm rupture Brother Hypertension Sister Hypertension Surgical History (Reviewed 01/14/23 @ 10:02 by Corina Gleason GEOGRAPHIC INFORMATION SYSTEMS ANALYST, GEOGRAPHIC INFORMATION SYSTEMS ANALYST-C) H/O bilateral salpingo-oophorectomy (01/2020) History of mechanical aortic valve replacement (05/13/16) History of mitral valve replacement with mechanical valve (05/13/16) History of robot-assisted laparoscopic hysterectomy (01/2020) History of tubal ligation HX venous access device placed Resection of subaortic membrane (2002) Social History (Reviewed 01/14/23 @ 10:02 by Corina Gleason GEOGRAPHIC INFORMATION SYSTEMS ANALYST, GEOGRAPHIC INFORMATION SYSTEMS ANALYST-C) household members: spouse number of children: 4 current occupational status: unemployed history of recent travel: No sexually active: Yes Smoking Status: Never smoker alcohol intake: never substance use type: does not use diet: low carbohydrate caffeine: No what type of physical activity do you participate in: walking seatbelt use: always do you feel safe at home: Yes additional social history: - [facility] ED Constitutional Constitutional ED: Reports fever(s) and subjective; Denies chills ENT ENT ED: Denies rhinorrhea or sore throat Cardiovascular Cardiovascular: Reports palpitations; Denies chest pain Respiratory/Chest Respiratory/Chest: Reports cough; Denies dyspnea Gastrointestinal Gastrointestinal: Reports diarrhea and nausea; Denies abdominal pain or vomiting Genitourinary Genitourinary ED: Denies dysuria Musculoskeletal Musculoskeletal: Reports myalgias Integumentary Denies rash Neurologic Neurologic: Reports headache(s) Hematologic/Lymphatic Hematologic/Lymphatic: Reports easy bleeding and easy bruising EXAM Physical Exam Const Vital Signs: 04/06/23 05:49 04/06/23 06:38 04/06/23 07:25 Temperature 100 F H 98.9 F Temperature Source Oral Oral Pulse Rate 72 98 Respiratory Rate 16 22 H Respiratory Effort Non-Labored Respiratory Pattern Normal Blood Pressure 121/58 H 112/61 Blood Pressure Mean 79 78 Pulse Ox 94 99 Oxygen Delivery Method Room Air Nasal Cannula Oxygen Flow Rate (L/min) 2 Positive well nourished, well developed and obese General Appearance ED: well developed Nutritional Appearance: obese HEENT Reports dry mucous membranes HEENT Narrative: Mucous membranes are dry and tacky No secondary changes noted in the posterior pharynx to suggest infection Mouth ED: Yes dry mucous membranes Mouth: dry mucous membranes Eyes PERRL and EOMs intact bilaterally General Eye ED: Negative for scleral icterus Neck supple Neck Narrative: No nuchal rigidity or meningeal signs noted Resp normal respiratory effort and clear to auscultation bilaterally Resp Narrative: Breath sounds are diminished throughout but overall clear to auscultation without signs of respiratory distress Cardio regular rate Rate: other Other Details: Irregularly irregular rhythm with regular rate consistent with history of atrial fibrillation GI non-tender and non-distended GI Narrative: Abdomen is obese soft nontender nondistended with hyperactive bowel sounds No voluntary guarding or rigidity No pulsatile mass or fluid wave Auscultation: hyperactive bowel sounds Palpation: soft Extremity normal to inspection Extremity Narrative: No asymmetric edema no pitting edema negative Homans' sign bilaterally Neuro oriented x3, CN's II-XII intact bilaterally and no sensory deficits noted Neuro Narrative: Cranial nerves II through XII are grossly intact there are no focal neurologic deficits Sensorium / Orientation: alert Motor Exam: strength 5/5 throughout Psych mental status grossly normal Skin no rashes or lesions noted Skin Narrative: Skin turgor is increased General Skin Exam: Negative for jaundice MDM MDM MDM Narrative Medical decision making narrative: Patient presented to the ER mildly tachycardic and hypertensive. She reported 1 week of feeling unwell with myalgias fatigue and bouts of loose stool/diarrhea. General diagnosis is for viral infection such as [place] or rotavirus versus COVID versus influenza there is also concern for pneumonia as she has had mild cough over potential acute kidney injury or electrolyte abnormality. Secondary to this lab work with a chest x-ray and urine sample were obtained. Labs revealed changes consistent with dehydration and she has decreased serum sodium potassium and chloride. However her white count and lactic acid are normal. Her urine did show +2 bacteria but no white blood cells and she denies any dysuria so do not feel this is truly infected and we will send the urine for culture. Also as the patient does have a history of endocarditis and has concern that this could be the start of that I will send 1 set of blood cultures. After patient was hydrated and treated she reported improvement of symptoms and was feeling better. At this time she does have dehydration changes and electrolyte abnormality changes by her not to the point where they require admission to the hospital and patient is otherwise safe for discharge History & Record Review Discussion w/independent historian: Patient and Significant other Lab Data Attestation: I reviewed the patient's lab results. Labs: Laboratory Results - last 24 hr 04/06/23 04/06/23 04/06/23 06:00 06:30 07:20 WBC 8.4 RBC 4.41 Hgb 13.7 Hct 39.7 MCV 90.0 MCH 31.1 MCHC 34.5 RDW Std Deviation 47.1 H RDW Coeff of Ham 14.2 Plt Count 146 L MPV 11.3 Immature Gran % (Auto) 0.400 Neut % (Auto) 81.6 H Lymph % (Auto) 7.5 L [place] % (Auto) 8.8 Eos % (Auto) 1.3 Baso % (Auto) 0.4 Absolute Neuts (auto) 6.9 Absolute Lymphs (auto) 0.63 L Nucleated RBC % 0 PT 19.6 H INR 1.6 Sodium 127 L Potassium 3.2 L Chloride 90 L Carbon Dioxide 30.0 Anion Gap 7 BUN 14 Creatinine 1.01 Estim Creat Clear Calc 57.60 Est GFR (MDRD) Af Amer 72 Est GFR (MDRD) Non-Af 59 L BUN/Creatinine Ratio 13.9 Glucose 151 H Lactic Acid 1.4 Calcium 8.4 L Magnesium 1.6 Urine Color Yellow Urine Clarity Sl. Cloudy Urine pH 6.0 Ur Specific [place] 1.010 Urine Protein 30 H Urine Glucose (UA) Normal Urine Ketones Negative Urine Occult Blood 25 H Urine Nitrite Negative Urine Bilirubin Negative Urine Urobilinogen 1 H Ur Leukocyte Esterase 25 H Urine RBC 0-5 SEEN Urine WBC 0-5 SEEN Ur Squamous Epith Cells 0-5 SEEN Urine Bacteria 2+ Urine Mucus 0 SEEN Discharge Plan Triage Chief Complaint: General Illness ED Provider: Hardeep Fritz Dx/Rx/DC Orders Clinical Impression: Diarrhea, Viral syndrome, Dehydration, Essential (primary) hypertension, [place] (current) use of anticoagulants, Hyponatremia, Hypokalemia Instructions: Dehydration, ED Viral Syndrome (Adult) Prescriptions: New ondansetron 4 mg tablet,disintegrating 4 mg PO TID PRN (Reason: nausea and vomiting) Qty: 21 0RF diphenoxylate-atropine [Lomotil] 2.5-0.025 mg tablet 1 tab PO 4X/DAY PRN PRN (Reason: diarrhea) 5 Days Qty: 20 0RF lorazepam [Ativan] 1 mg tablet 1 mg PO TID PRN (Reason: Muscle cramps/spasms) 5 Days Qty: 15 0RF No Action duloxetine [Cymbalta] 60 mg capsule,delayed release(DR/EC) 120 mg PO DAILY metformin 500 mg tablet 250 mg PO DAILY metoprolol tartrate 25 mg tablet 25 mg PO BID Qty: 180 3RF acetaminophen [Tylenol Extra Strength] 500 mg tablet 1,000 mg PO DAILY benzonatate 200 mg capsule 200 mg PO TID PRN (Reason: cough) Qty: 90 0RF gabapentin 100 mg capsule 100 mg PO BID gabapentin 100 mg capsule 300 mg PO QHS albuterol sulfate [Ventolin HFA] 90 mcg/actuation HFA aerosol inhaler 2 puff INHALATION Q4H PRN (Reason: shortness of breath or wheezing) Qty: 8.5 6RF budesonide-formoterol [Symbicort] 160-4.5 mcg/actuation HFA aerosol inhaler 2 puff inhalation BID Qty: 10.2 6RF fluticasone propionate [Flonase Allergy Relief] 50 mcg/actuation spray,suspension 2 spray INTRANASAL QDAY Qty: 1 3RF Rx Instructions: administer into each nostril ipratropium-albuterol 0.5 mg-3 mg(2.5 mg base)/3 mL solution for nebulization 3 ml inhalation Q4H PRN PRN (Reason: SOB &/OR WHEEZING) Qty: 180 6RF loratadine 10 mg tablet 10 mg PO DAILY Qty: 90 3RF azelastine 137 mcg (0.1 %) aerosol,spray 2 spray intranasal BID Qty: 30 3RF Rx Instructions: administer into each nostril allergy shot IM .weekly Patient Comments: At [place] [facility] doxycycline hyclate 100 mg tablet 100 mg PO BID Qty: 20 0RF clobetasol 0.05 % cream 1 applic topical BID PRN magnesium oxide 500 mg tablet 500 mg PO DAILY multivitamin with folic acid 1 TABLET tablet 1 tab PO DAILY omeprazole 40 MG capsule,delayed release(DR/EC) 40 mg PO DAILY melatonin 5 MG capsule 5 mg PO QHS cholecalciferol (vitamin D3) 1,250 mcg (50,000 unit) capsule 1,250 mcg PO QWEEK Patient Comments: TAKE 1 CAPSULE BY MOUTH ONCE A WEEK diphenhydramine HCl [Benadryl] 25 MG capsule 25 mg PO QHS warfarin 5 mg tablet 2.5 mg PO DAILY Protocol: Dose Management Condition: Thursday Dose/Route: 7.5 mg Instruction: 1 x 7.5 mg tablet Condition: Thursday Dose/Route: 5 mg Instruction: 1 x 5 mg tablet Condition: Thursday Dose/Route: 5 mg Instruction: 1 x 5 mg tablet Condition: Thursday Dose/Route: 5 mg Instruction: 1 x 5 mg tablet Condition: Dose/Route: 5 mg Instruction: 1 x 5 mg tablet Condition: Thursday Dose/Route: 5 mg Instruction: 1 x 5 mg tablet Condition: Thursday Dose/Route: 5 mg Instruction: 1 x 5 mg tablet Protocol Text: Adjustment Start Date: Thursday02/04/23 INR Value: 3.5 INR Date: 02/03/23 Recheck Date: 02/18/23 Rx Instructions: THURSDAY AND THURSDAY AND THURSDAY warfarin 7.5 mg tablet 7.5 mg PO .COMPLEX Qty: 90 3RF Protocol: Dose Management Condition: Thursday Dose/Route: 7.5 mg Instruction: 1 x 7.5 mg tablet Condition: Thursday Dose/Route: 5 mg Instruction: 1 x 5 mg tablet Condition: Thursday Dose/Route: 5 mg Instruction: 1 x 5 mg tablet Condition: Thursday Dose/Route: 5 mg Instruction: 1 x 5 mg tablet Condition: Dose/Route: 5 mg Instruction: 1 x 5 mg tablet Condition: Thursday Dose/Route: 5 mg Instruction: 1 x 5 mg tablet Condition: Thursday Dose/Route: 5 mg Instruction: 1 x 5 mg tablet Protocol Text: Adjustment Start Date: Thursday02/04/23 INR Value: 3.5 INR Date: 02/03/23 Recheck Date: 02/18/23 Rx Instructions: 7.5 mg orally Thursday through Thursday (takes a 2.5 mg tablet on Thursday and Thursday); or as directed for dose changes warfarin 5 mg tablet 5 mg PO .COMPLEX Qty: 90 4RF Protocol: Dose Management Condition: Thursday Dose/Route: 7.5 mg Instruction: 1 x 7.5 mg tablet Condition: Thursday Dose/Route: 5 mg Instruction: 1 x 5 mg tablet Condition: Thursday Dose/Route: 5 mg Instruction: 1 x 5 mg tablet Condition: Thursday Dose/Route: 5 mg Instruction: 1 x 5 mg tablet Condition: Dose/Route: 5 mg Instruction: 1 x 5 mg tablet Condition: Thursday Dose/Route: 5 mg Instruction: 1 x 5 mg tablet Condition: Thursday Dose/Route: 5 mg Instruction: 1 x 5 mg tablet Protocol Text: Adjustment Start Date: Thursday02/04/23 INR Value: 3.5 INR Date: 02/03/23 Recheck Date: 02/18/23 Rx Instructions: 5 mg PO take 1 tab by mouth daily or as directed; pravastatin 40 mg tablet 20 mg PO QHS Qty: 45 3RF guaifenesin [Mucinex] 600 mg tablet extended release 12hr 1,200 mg PO BID Qty: 60 11RF levofloxacin 750 mg tablet 750 mg PO DAILY Qty: 7 0RF prednisone 20 mg tablet 60 mg PO QDAY Qty: 15 0RF Rx Instructions: administer with food or milk potassium chloride [Klor-Con M20] 20 mEq tablet,ER particles/crystals 20 meq PO .COMPLEX Qty: 270 3RF Rx Instructions: 20 mEq orally 2 tablets in the morning and 1 tablet at suppertime; torsemide 20 mg tablet 40 mg PO DAILY Qty: 180 3RF Primary Care Provider: [facility] Vidhi Yang Referrals: [facility] Vidhi Yang [Primary Care Provider] - Disposition Disposition: Home, Self Care
[2023-04-06 08:04] VITALS: BP 117/59; PULSE 81; RESP 24; O2SAT 98
[2023-04-06] MEDS: 0.9% Normal Saline (500mL Bag) 500 ML 999 ML IV (08:06)
[2023-04-06 08:58] VITALS: BP 110/59; PULSE 84; RESP 19; O2SAT 98
== END 2023-04-06 09:00 | disposition home or self-care (01) ==
PROVIDERS: Emergency Provider Emergency Medicine; Visit Provider Emergency Medicine
DX: B34.9 Viral infection, unspecified (principal); I11.0 Hypertensive heart disease with heart failure; I50.32 Chronic diastolic (congestive) heart failure; I48.91 Unspecified atrial fibrillation; R19.7 Diarrhea, unspecified; G47.33 Obstructive sleep apnea (adult) (pediatric); E87.6 Hypokalemia; E86.0 Dehydration; E87.1 Hypo-osmolality and hyponatremia; Z97.2 Presence of dental prosthetic device (complete) (partial); E78.5 Hyperlipidemia, unspecified; Z79.01 Long term (current) use of anticoagulants; Z99.89 Dependence on other enabling machines and devices; F41.9 Anxiety disorder, unspecified; Z79.899 Other long term (current) drug therapy; J45.909 Unspecified asthma, uncomplicated; Z79.51 Long term (current) use of inhaled steroids; Z95.2 Presence of prosthetic heart valve; Z90.710 Acquired absence of both cervix and uterus; Z95.828 Presence of other vascular implants and grafts
CPT/HCPCS: 71045; 80048; 81001; 83605; 83735; 85025; 85610; 87040; 87077; 87086; 87088; 87186; 87428; 96361; 96374; 96375; 99283; J7030; A4216; J2405

== ENCOUNTER 2023-04-08 17:33 | Emergency (ER) | payer OTHER, SELFPAY ==
[2023-04-08 17:34] VITALS: BP 110/98; PULSE 90; RESP 20; TEMP 36; O2SAT 97
[2023-04-08 17:50] VITALS: BP 97/74; PULSE 94; RESP 18; O2SAT 92
--- OUTSIDE RECORDS SUMMARY | 2023-04-08 18:22 | XMS RPT_ITS | CCD ---
Author Name Unknown Address [address] [place] [address] Organization [facility] Care Team Providers Care Professional Bass Fisher Name Role Phone Marcia Lindsey Unavailable Unavailable Radha Hsu Unavailable Hans Denson Unavailable Unavailable MD Tip, Dick Conde Unavailable Christianne CARBALLO, Gianluca Stubbs Unavailable Unavailable Christianne CARBALLO, Gianluca Stubbs Unavailable Unavailable aRdha Hsu Unavailable Gianluca Faust RN Unavailable Unavailable hCristianne CARBALLO, Gianluca Stubbs Unavailable Unavailable VINICIO, LEANA Unavailable Unavailable EVA HART Unavailable Unavailable KRISS LOPEZ Unavailable Unavailable EVA HART Unavailable Unavailable HARIS Rocha, Lindsay Avila Unavailable UnavailMarcia Bishop Unavailable Unavailable Pepper Davis Primary Care Provider UnavailJj Hernadez Unavailable Unavailable Gianluca Luna CNP Primary Care Provider WILLIAM URBAN Referring Unavailable GIANLUCA LUNA Primary Care Unavailable GIANLUCA LUNA Primary Care Unavailable Allergies Allergy Classification Reported Allergen(s) Allergy Type Date of Onset Reaction(s) Facility (11 sources) cephalexin drug allergy swelling & Rash [facility] Work Phone: [phone] (11 sources) ciprofloxacin drug allergy 04-09-19 17 [facility] Work Phone: [phone] (11 sources) clarithromycin drug allergy 06-05-19 13 SOB, Hives and swelling [facility] Work Phone: [phone] (15 sources) penicillin; Translations: [PENICILLIN] drug allergy 04-24-19 17 Unknown [facility] Work Phone: [phone] (13 sources) simvastatin; Translations: [SIMVASTATIN] food allergy 06-05-19 13 Rash [facility] Work Phone: [phone] (11 sources) sulfamethoxazole / trimethoprim drug allergy 10-22-19 16 Rash [facility] Work Phone: [phone] (11 sources) BUPROPRION drug allergy 06-05-19 13 worsened depression [facility] Work Phone: [phone] (2 sources) Adhesive Tape Propensity to adverse reactions to drug 12-19-19 Itching [place] (2 sources) buPROPion Drug Allergy 12-19-19 [place] (2 sources) Cephalexin Drug Allergy 12-19-19 [place] (6 sources) Ciprofloxacin; Translations: [CIPROFLOXACIN] Drug Allergy 04-24-19 Mental Status Change [place] (2 sources) Clarithromycin Drug Allergy 12-19-19 Hives, Shortness Of Breath, Swelling [place] (2 sources) Penicillins Propensity to adverse reactions to drug 12-19-19 Other (See Comments) [place] (2 sources) Sulfamethoxazole Drug Allergy 12-19-19 [place] (2 sources) Trimethoprim Drug Allergy 12-19-19 [place] (2 sources) Macrolides And Ketolides Propensity to adverse reactions to drug 12-19-19 [place] (4 sources) Adhesive Tape; Translations: [ADHESIVE TAPE (ROSINS)] Allergy to substance 05-09-19 [facility] (4 sources) Sulfonamides (Antibiotic); Translations: [SULFA (SULFONAMIDE ANTIBIOTICS)] Drug Allergy 04-24-[address] [facility] Medications Current Medications Medication Drug Class(es) [...] 5-325 MG TABS As needed OXYCODONE-ACETAMINO PHEN [id number] Dick Whelan MD Problems Active Problems Problem [...] 09-25-2016 Episodic Other aftercare (16 sources) Other [facility] (current[facility] drug therapy; Translations: [Long-term (current) use [...] 16:45-0400 Body temperature 97.39 [degF] William Urban BATTER OUT.PUBLISHING AGENT Work Phone: [facility] 12-04-2022 16:45-0400 Body weight 115.39 kg William Urban BATTER OUT.PUBLISHING AGENT Work Phone: [facility] 12-04-2022 16:45-0400 Diastolic blood pressure 78 mm[Hg] William Urban BATTER OUT.PUBLISHING AGENT Work Phone: [facility] 12-04-2022 16:45-0400 Heart rate 76 /min William Urban BATTER OUT.PUBLISHING AGENT Work Phone: [facility] 12-04-2022 16:45-0400 Respiratory rate 18 /min William Urban BATTER OUT.PUBLISHING AGENT Work Phone: [facility] 12-04-2022 16:45-0400 SaO2% (BldA) [Mass fraction] 96 % William Urban BATTER OUT.PUBLISHING AGENT Work Phone: [facility] 12-04-2022 16:45-0400 Systolic blood pressure 140 mm[Hg] William Urban BATTER OUT.PUBLISHING AGENT Work Phone: [facility] 01-04-2020 09:27-0400 Body Temperature 96.8 [degF] Isaac Mcneil [facility], [place] 01-04-2020 09:27-0400 BP Diastolic 51 mm[Hg] Isaac Mcneil [facility] , [place] 01-04-2020 09:27-0400 BP Systolic 110 mm[Hg] Isaactika Mcneil [facility] , [place] 01-04-2020 09:27-0400 Pulse (Heart Rate) 70 /min Isaac Mcneil [facility], [place] 01-04-2020 09:27-0400 Pulse Oximetry 94 % Isaac Mcneil [facility] [place] 01-04-2020 09:27-0400 Respiratory Rate 18 /min Isaac Mcneil [facility], [place] 01-03-2020 11:59-0400 BMI (Body Mass Index) 39.97 kg/m2 Isaac Mendez [facility], [place] 01-03-2020 11:59-0400 Body weight 117.48 kg Isaac Mendez [facility] , [place] 01-03-2020 11:59-0400 Height 171.5 cm [facility] [place] 12-28-2019 14:10-0400 BMI (Body Mass Index) 39.97 kg/m2 Isaac Mendez [facility], [place] 12-28-2019 14:10-0400 Body Temperature 96.69 [degF] Isaac Mendez [facility], [place] 12-28-2019 14:10-0400 Body weight 117.48 kg [facility] [place] 12-28-2019 14:10-0400 BP Diastolic 75 mm[Hg] Isaac Mcneil [facility] , [place] 12-28-2019 14:10-0400 BP Systolic 147 mm[Hg] Isaac Mcneil [facility] , [place] 12-28-2019 14:10-0400 Pulse (Heart Rate) 82 /min Isaac Mcneil [facility], [place] 12-28-2019 14:10-0400 Pulse Oximetry 95 % Isaac Mcneil [facility] , [place] 12-28-2019 14:10-0400 Respiratory Rate 18 /min Isaac Mcneil [facility], [place] 11-25-2016 06:57-0400 BMI (Body Mass Index) 40.09 kg/m2 Marcia César [facility] Work Phone: 11-25-2016 06:57-0400 Body Temperature 98.1 [degF] Marciacira Lindsey [facility] Work Phone: 11-25-2016 06:57-0400 BP Diastolic 80 mm[Hg] Marciacira Lindsey [facility] Work Phone: 11-25-2016 06:57-0400 BP Systolic 144 mm[Hg] Marcia César [facility] Work Phone: 11-25-2016 06:57-0400 Height 170.18 cm Marcia César [facility] Work Phone: 11-25-2016 06:57-0400 Pulse (Heart Rate) 78 /min [facility] Work Phone: 11-25-2016 06:57-0400 Respiratory Rate 18 /min [facility] Work Phone: 11-25-2016 06:57-0400 Weight 116.12 kg [facility] Work Phone: 09-26-2016 13:13-0400 BMI (Body Mass Index) 40.09 kg/m2 Rad[facility] Work Phone: 09-26-2016 13:13-0400 BP Diastolic 70 mm[Hg] Radha Hsu [facility] Work Phone: 09-26-2016 13:13-0400 BP Systolic 130 mm[Hg] Radha Hsu [facility] Work Phone: 09-26-2016 13:13-0400 Height 170.18 cm Radha Hsu [facility] Work Phone: 09-26-2016 13:13-0400 Pulse (Heart Rate) 60 /min [facility] Work Phone: 09-26-2016 13:13-0400 Respiratory Rate 18 /min [facility] Work Phone: 09-26-2016 13:13-0400 Weight 116.12 kg Radha Hsu [facility] Work Phone: 06-30-2016 09:33-0400 BMI (Body Mass Index) 41.16 kg/m2 Gianluca Faust RN [facility] Work Phone: 06-30-2016 09:33-0400 Body Temperature 98 [degF] Gianluca Faust RN [facility] Work Phone: 06-30-2016 09:33-0400 BP Diastolic 66 mm[Hg] Gianluca Faust RN [facility] Work Phone: 06-30-2016 09:33-0400 BP Systolic 134 mm[Hg] Gianluca Faust RN [facility] Work Phone: 06-30-2016 09:33-0400 Height 170.18 cm Gianluca Faust RN [facility] Work Phone: 06-30-2016 09:33-0400 Pulse (Heart Rate) 73 /min Gianluca Faust RN [facility] Work Phone: 06-30-2016 09:33-0400 Pulse Oximetry 98 % Gianluca Faust RN [facility] Work Phone: 06-30-2016 09:33-0400 Respiratory Rate 20 /min Gianluca Faust RN [facility] Work Phone: 06-30-2016 09:33-0400 Weight 119.21 kg Gianluca Faust RN [facility] Work Phone: 06-18-2016 12:57-0400 Heart rate 76 /min Lindsay Rocha RN [facility] Work Phone: 11-28-2015 09:00-0400 Body Temperature 97.52 [degF] Gianluca Faust RN [facility] Work Phone: 11-28-2015 09:00-0400 BSA (Body Surface Area) 2.36 m2 Gianluca Faust RN [facility] Work Phone: 11-28-2015 09:00-0400 Height 170.18 cm Gianluca Faust RN [facility] Work Phone: 11-28-2015 09:00-0400 Weight 130.91 kg Gianluca Faust RN [facility] Work Phone: 10-11-2015 09:20-0400 Pulse Oximetry 98 % Gianluca Faust RN [facility] Work Phone: Encounters Encounter Date Encounter Type Care Provider Facility Start: 12-06-2022 Telephone encounter Apolonia Víctor Shelley APRN.PUBLISHING AGENT Work Phone: [facility] Procedures Date Procedure Procedure Detail Performing Clinician Start: 12-04-2022 Radiologic exam chest 2 views William Urban BATTER OUT.PUBLISHING AGENT Work Phone: Start: 01-04-2020 Gluc bld gluc [...] Nichol Paez MD Start: 06-18-2016 End: 06-18-2016 BUSINESS BANKING MANAGER Dick Whelan MD Start: 06-18-2016 End: 06-18-2016 Ecg routine ecg w/least 12 lds w/i&r Dick Whelan MD Start: 06-18-2016 End: 06-18-2016 Follow Up Appt 3 months Margarita Brown Start: 06-18-2016 End: 06-18-2016 BUSINESS BANKING MANAGER Dick Whelan MD Start: 06-18-2016 End: 06-18-2016 Electrocardiogram, [...] 04-09-2016 End: 04-09-2016 *CBC with Differential Nichol Paez MD Start: 04-09-2016 End: 04-09-2016 [...] 04-09-2016 End: 04-09-2016 *CBC with Differential Nichol Alcaraz Signs Start: 04-09-2016 End: 04-09-2016 Bacteria culture Nichol Paez MD Start: 04-09-2016 End: 04-09-2016 Bacterica wound culture Nichol Avila D Start: 04-09-2016 End: 04-09-2016 C reactive protein (hsCRP) Nichol Paez MD Start: 04-09-2016 End: 04-09-2016 Erythrocyte sedimentation rate Nichol Peaz MD Start: 11-28-2015 End: 11-28-2015 Dietary management education, guidance, and counseling Lindsay Rocha RN Start: 10-22-2015 End: 10-22-2015 Chest x-ray Corina Gleason CNP Work Phone: Start: 10-22-2015 End: 10-22-2015 Fibrin D-dimer FEU [Mass/volume] in Platelet poor plasma Corina Gleason CNP Work Phone: Start: 10-22-2015 End: 10-22-2015 Follow Up Appt 1 month Corinayuki rucker PUBLISHING AGENT Work Phone: Start: 10-22-2015 End: 10-22-2015 Chest x-ray Corina Gleason CNP Work Phone: Start: 10-22-2015 End: 10-22-2015 Fibrin D-dimer FEU Corina Gleason CNP Work Phone: Start: 10-22-2015 End: 10-22-2015 Follow Up Appt 1 month Corina rucker PUBLISHING AGENT Work Phone: Start: 10-11-2015 End: 10-11-2015 Follow Up Appt 6 months Margarita Brown Start: 10-11-2015 End: 10-11-2015 OZZIE Whelan MD Start: 10-11-2015 End: 10-11-2015 Follow Up Appt 6 months Margarita Brown Start: 10-11-2015 End: 10-11-2015 OZZIE Whelan MD Start: 03-28-2015 End: 03-29-2015 *Hepatic Function Panel Fatmata chicas PA-C Work Phone: Start: 03-28-2015 End: 03-28-2015 BUSINESS BANKING MANAGER Fatmata Price PA-C Work Phone: Start: 03-28-2015 [...] PA-C Work Phone: Start: 03-28-2015 End: 03-28-2015 BUSINESS BANKING MANAGER Fatmata Price PA-C Work Phone: Start: 03-28-2015 [...] PA-C Work Phone: Start: 02-16-2014 End: 02-16-2014 BUSINESS BANKING MANAGER Fatmata Price PA-C Work Phone: Start: 02-16-2014 [...] PA-C Work Phone: Start: 02-16-2014 End: 02-16-2014 BUSINESS BANKING MANAGER Fatmata Price PA-C Work Phone: Start: 02-16-2014 [...] PA-C Work Phone: Start: 02-07-2013 End: 02-07-2013 BUSINESS BANKING MANAGER Fatmata Price PA-C Work Phone: Start: 02-07-2013 End: 02-07-2013 Follow Up Appt 6 months Fatmata chicas PA-C Work Phone: Start: 02-07-2013 End: 02-07-2013 BUSINESS BANKING MANAGER Fatmata Price PA-C Work Phone: Start: 02-07-2013 [...] PA-C Work Phone: Start: 12-08-2012 End: 12-08-2012 MM Fatmata Price PA-C Work Phone: Start: 06-04-2012 End: 06-04-2012 Follow Up Appt 6 months Margarita Brown Start: 06-04-2012 End: 06-04-2012 OZZIE Whelan MD Start: 06-04-2012 End: 06-04-2012 Follow Up Appt 6 months Margarita Brown Start: 06-04-2012 End: 06-04-2012 MMMargarita Whelan MD Start: 04-19-2012 End: 06-04-2012 Left [...] Author Start: 10-28-2025 DIABETES SCREEN DIABETES SCREEN [facility] Start: 12-05-2022 Influenza vaccination INFLUENZA (#1) [facility] Start: 04-06-2022 DEPRESSION ASSESSMENT DEPRESSION ASSESSMENT [facility] Start: 03-23-2022 LIPID SCREEN LIPID SCREEN [facility] Start: 03-03-2021 COVID-19 VACCINE (4 - Mixed Product series) COVID-19 VACCINE (4 - Mixed Product series) [facility] Start: 12-27-2020 Creatinine measurement Creatinine monitoring [place], [place] Start: 12-27-2020 Potassium monitoring Potassium monitoring [place], [place] Start: 01-19-2020 End: 01-19-2020 Office Visit 01/19/2020 Office Visit Gynecologic Oncology Nataliya Payton PA [address] [place] [id number] [facility] [place] [employer]NEY[employer] Oncology Start: 01-03-2020 End: 01-03-2020 Appointment 01/03/2020 Appointment General Surgery Isaac Mcneil MD [address] [place] [address] [facility] General Surgery Start: 12-06-2019 Influenza vaccination Flu vaccine (#1) [place] Start: 03-09-2019 DTaP/Tdap/Td vaccine (2 - Td) DTaP/Tdap/Td vaccine (2 - Td) [place] Start: 05-26-2017 End: 05-26-2017 Appointment Appointment [facility] Work Phone: Start: 03-27-2017 End: 03-27-2017 Appointment Appointment [facility] Work Phone: Start: 03-23-2017 End: 09-24-2016 *Hepatic Function Panel *Hepatic Function Panel [facility] Work Phone: Start: 03-23-2017 End: 09-24-2016 Lipid panel [AGGREGATE] *Lipid Profile CC PCP [facility] Work Phone: Start: 03-23-2017 End: 03-25-2017 *Hepatic Function Panel *Hepatic Function Panel [facility] Work Phone: Start: 03-23-2017 End: 03-25-2017 Lipid panel [AGGREGATE] *Lipid Profile CC PCP [facility] Work Phone: Start: 11-25-2016 End: 11-25-2016 DMB DMB [facility] Work Phone: Start: 11-25-2016 End: 11-25-2016 Follow Up Appt 6 months Follow Up Appt 6 months [facility] Work Phone: Start: 11-25-2016 [...] Phone: Start: 09-26-2016 End: 09-26-2016 Appointment Appointment [facility] Work Phone: Start: 09-26-2016 End: 09-26-2016 Follow Up Appt 6 months Follow Up Appt 6 months [facility] Work Phone: Start: 09-26-2016 End: 09-26-2016 MMM MMM [facility] Work Phone: Start: 09-26-2016 End: 09-26-2016 Follow Up Appt 6 months Follow Up Appt 6 months [facility] Work Phone: Start: 09-26-2016 End: 09-26-2016 MMM MMM [facility] Work Phone: Start: 09-18-2016 End: 09-24-2016 *BMP *BMP [facility] Work Phone: Start: 09-18-2016 End: 09-24-2016 *Hepatic Function Panel *Hepatic Function Panel [facility] Work Phone: Start: 09-18-2016 End: 09-24-2016 Lipid panel [AGGREGATE] *Lipid Profile CC PCP [facility] Work Phone: Start: 09-18-2016 End: 09-18-2016 Appointment Appointment [facility] Work Phone: Start: 09-18-2016 End: 09-24-2016 *BMP *BMP [facility] Work Phone: Start: 09-18-2016 End: 09-24-2016 *Hepatic Function Panel *Hepatic Function Panel [facility] Work Phone: Start: 09-18-2016 End: 09-24-2016 Lipid panel [AGGREGATE] *Lipid Profile CC PCP [facility] Work Phone: Start: 07-16-2016 End: 07-16-2016 *CBC with Differential *CBC with Differential [facility] Work Phone: Start: 07-16-2016 End: 07-16-2016 C reactive protein (hsCRP) *CRP - C-Reative Protein [facility] Work Phone: Start: 07-16-2016 End: 07-16-2016 Erythrocyte sedimentation rate *Sedimentation Rate (ESR) [facility] Work Phone: Start: 07-16-2016 End: 07-16-2016 *CBC with Differential *CBC with Differential [facility] Work Phone: Start: 07-16-2016 End: 07-16-2016 C reactive protein (hsCRP) *CRP - C-Reative Protein [facility] Work Phone: Start: 07-16-2016 End: 07-16-2016 Erythrocyte sedimentation rate *Sedimentation Rate (ESR) [facility] Work Phone: Start: 07-07-2016 End: 07-07-2016 Bacteria culture *CUB - Culture, Blood [facility] Work Phone: Start: 07-07-2016 End: 07-07-2016 Bacteria culture *CUB - Culture, Blood [facility] Work Phone: Start: 06-25-2016 End: 06-30-2016 Bacteria culture *CUB - Culture, Blood [facility] Work Phone: Start: 06-25-2016 End: 06-30-2016 Bacteria culture *CUB - Culture, Blood [facility] Work Phone: Start: 06-18-2016 End: 09-15-2016 Cardiac Rehab Cardiac Rehab [address] [place], [address] [facility] Work Phone: Start: 06-18-2016 End: 06-18-2016 BUSINESS BANKING MANAGER BUSINESS BANKING MANAGER [facility] Work Phone: Start: 06-18-2016 End: 06-18-2016 Ecg routine ecg w/least 12 lds w/i&r EKG (In office) [facility] Work Phone: Start: 06-18-2016 End: 06-18-2016 Follow Up Appt 3 months Follow Up Appt 3 months [facility] Work Phone: Start: 06-18-2016 End: 09-15-2016 Cardiac Rehab Cardiac Rehab [address] [place], [address] [facility] Work Phone: Start: 06-18-2016 End: 06-18-2016 BUSINESS BANKING MANAGER BUSINESS BANKING MANAGER [facility] Work Phone: Start: 06-18-2016 End: 06-18-2016 Electrocardiogram, complete EKG (In office) [facility] Work Phone: Start: 06-18-2016 End: 06-18-2016 Follow Up Appt 3 months Follow Up Appt 3 months [facility] Work Phone: Start: 04-25-2016 End: 06-30-2016 Bacteria culture *CUB - Culture, Blood [facility] Work Phone: Start: 04-25-2016 End: 06-30-2016 Bacteria culture *CUB - Culture, Blood [facility] Work Phone: Start: 04-16-2016 End: 04-16-2016 *CBC with Differential *CBC with Differential [facility] Work Phone: Start: 04-16-2016 End: 04-16-2016 C reactive protein (hsCRP) *CRP - C-Reative Protein [facility] Work Phone: Start: 04-16-2016 End: 04-16-2016 Erythrocyte sedimentation rate *Sedimentation Rate (ESR) [facility] Work Phone: Start: 04-16-2016 End: 04-16-2016 *CBC with Differential *CBC with Differential [facility] Work Phone: Start: 04-16-2016 End: 04-16-2016 C reactive protein (hsCRP) *CRP - C-Reative Protein [facility] Work Phone: Start: 04-16-2016 End: 04-16-2016 Erythrocyte sedimentation rate *Sedimentation Rate (ESR) [facility] Work Phone: Start: 04-09-2016 End: 04-09-2016 *CBC with Differential *CBC with Differential [facility] Work Phone: Start: 04-09-2016 End: 04-09-2016 Bacteria culture *CUB - Culture, Blood [facility] Work Phone: Start: 04-09-2016 End: 04-09-2016 Bacterica wound culture *Culture and Sensitivity, wound [facility] Work Phone: Start: 04-09-2016 End: 04-09-2016 C reactive protein (hsCRP) *CRP - C-Reative Protein [facility] Work Phone: Start: 04-09-2016 End: 04-09-2016 Erythrocyte sedimentation rate *Sedimentation Rate (ESR) [facility] Work Phone: Start: 04-09-2016 End: 04-09-2016 *CBC with Differential *CBC with Differential [facility] Work Phone: Start: 04-09-2016 End: 04-09-2016 Bacteria culture *CUB - Culture, Blood [facility] Work Phone: Start: 04-09-2016 End: 04-09-2016 Bacterica wound culture *Culture and Sensitivity, wound [facility] Work Phone: Start: 04-09-2016 End: 04-09-2016 C reactive protein (hsCRP) *CRP - C-Reative Protein [facility] Work Phone: Start: 04-09-2016 End: 04-09-2016 Erythrocyte sedimentation rate *Sedimentation Rate (ESR) [facility] Work Phone: Start: 11-28-2015 End: 11-28-2015 [facility] Work Phone: Start: 11-28-2015 End: 11-28-2015 Follow Up Appt 1 year Follow Up Appt 1 year [facility] Work Phone: Start: 11-28-2015 End: 11-28-2015 [facility] Work Phone: Start: 11-28-2015 End: 11-28-2015 Follow Up Appt 1 year Follow Up Appt 1 year [facility] Work Phone: Start: 10-22-2015 End: 10-22-2015 Chest x-ray X-Ray, Chest, PA & Lateral [facility] Work Phone: Start: 10-22-2015 End: 10-22-2015 Fibrin D-dimer FEU *DDIMQ - Fibrin Degrd Ultrsens Qual/Semiquan [facility] Work Phone: Start: 10-22-2015 End: 10-22-2015 Follow Up Appt 1 month Follow Up Appt 1 month [facility] Work Phone: Start: 10-22-2015 End: 10-22-2015 Chest x-ray X-Ray, Chest, PA & Lateral [facility] Work Phone: Start: 10-22-2015 End: 10-22-2015 Fibrin D-dimer FEU *DDIMQ - Fibrin Degrd Ultrsens Qual/Semiquan [facility] Work Phone: Start: 10-22-2015 End: 10-22-2015 Fibrin D-dimer FEU mass conc (PPP) *DDIMQ - Fibrin Degrd Ultrsens Qual/Semiquan [facility] Work Phone: Start: 10-22-2015 End: 10-22-2015 Follow Up Appt 1 month Follow Up Appt 1 month [facility] Work Phone: Start: 10-11-2015 End: 10-11-2015 Follow Up Appt 6 months Follow Up Appt 6 months [facility] Work Phone: Start: 10-11-2015 End: 10-11-2015 MMM MMM [facility] Work Phone: Start: 10-11-2015 End: 10-11-2015 Follow Up Appt 6 months Follow Up Appt 6 months [facility] Work Phone: Start: 10-11-2015 End: 10-11-2015 MMM MMM [facility] Work Phone: Start: 09-28-2015 End: 03-29-2015 *Hepatic Function Panel *Hepatic Function Panel [facility] Work Phone: Start: 09-28-2015 End: 03-29-2015 Lipid panel [AGGREGATE] *Lipid Profile CC PCP [facility] Work Phone: Start: 03-28-2015 End: 03-29-2015 *Hepatic Function Panel *Hepatic Function Panel [facility] Work Phone: Start: 03-28-2015 End: 03-28-2015 BUSINESS BANKING MANAGER BUSINESS BANKING MANAGER [facility] Work Phone: Start: 03-28-2015 End: 03-28-2015 Ecg routine ecg w/least 12 lds w/i&r EKG (In office) [facility] Work Phone: Start: 03-28-2015 End: 03-28-2015 Follow Up Appt 6 months Follow Up Appt 6 months [facility] Work Phone: Start: 03-28-2015 End: 03-29-2015 Lipid panel [AGGREGATE] *Lipid Profile CC PCP [facility] Work Phone: Start: 03-28-2015 End: 03-29-2015 *Hepatic Function Panel *Hepatic Function Panel [facility] Work Phone: Start: 03-28-2015 End: 03-28-2015 BUSINESS BANKING MANAGER BUSINESS BANKING MANAGER [facility] Work Phone: Start: 03-28-2015 End: 03-28-2015 Electrocardiogram, complete EKG (In office) [facility] Work Phone: Start: 03-28-2015 End: 03-28-2015 Follow Up Appt 6 months Follow Up Appt 6 months [facility] Work Phone: Start: 03-28-2015 End: 03-29-2015 Lipid panel [AGGREGATE] *Lipid Profile CC PCP [facility] Work Phone: Start: 01-02-2015 End: 03-28-2015 *Hepatic Function Panel *Hepatic Function Panel [facility] Work Phone: Start: 01-02-2015 End: 03-28-2015 Lipid panel [AGGREGATE] *Lipid Profile CC PCP [facility] Work Phone: Start: 01-02-2015 End: 03-28-2015 *Hepatic Function Panel *Hepatic Function Panel [facility] Work Phone: Start: 01-02-2015 End: 03-28-2015 Lipid panel [AGGREGATE] *Lipid Profile CC PCP [facility] Work Phone: Start: 09-29-2014 End: 09-29-2014 Follow Up Appt 6 months Follow Up Appt 6 months [facility] Work Phone: Start: 09-29-2014 End: 09-29-2014 MMM MMM [facility] Work Phone: Start: 09-29-2014 End: 09-29-2014 Follow Up Appt 6 months Follow Up Appt 6 months [facility] Work Phone: Start: 09-29-2014 End: 09-29-2014 MMM MMM [facility] Work Phone: Start: 09-28-2014 End: 09-28-2014 *Hepatic Function Panel *Hepatic Function Panel [facility] Work Phone: Start: 09-28-2014 End: 09-28-2014 Lipid panel [AGGREGATE] *Lipid Profile CC PCP [facility] Work Phone: Start: 09-28-2014 End: 09-28-2014 *Hepatic Function Panel *Hepatic Function Panel [facility] Work Phone: Start: 09-28-2014 End: 09-28-2014 Lipid panel [AGGREGATE] *Lipid Profile CC PCP [facility] Work Phone: Start: 02-16-2014 End: 04-20-2014 *Hepatic Function Panel *Hepatic Function Panel [facility] Work Phone: Start: 02-16-2014 End: 02-16-2014 BUSINESS BANKING MANAGER BUSINESS BANKING MANAGER [facility] Work Phone: Start: 02-16-2014 End: 02-16-2014 Ecg routine ecg w/least 12 lds w/i&r EKG (In office) [facility] Work Phone: Start: 02-16-2014 End: 02-16-2014 Follow Up Appt 6 months Follow Up Appt 6 months [facility] Work Phone: Start: 02-16-2014 End: 04-20-2014 Lipid panel [AGGREGATE] *Lipid Profile CC PCP [facility] Work Phone: Start: 02-16-2014 End: 04-20-2014 *Hepatic Function Panel *Hepatic Function Panel [facility] Work Phone: Start: 02-16-2014 End: 02-16-2014 BUSINESS BANKING MANAGER BUSINESS BANKING MANAGER [facility] Work Phone: Start: 02-16-2014 End: 02-16-2014 Electrocardiogram, complete EKG (In office) [facility] Work Phone: Start: 02-16-2014 End: 02-16-2014 Follow Up Appt 6 months Follow Up Appt 6 months [facility] Work Phone: Start: 02-16-2014 [...] 6 months Follow Up Appt 6 months [facility] Work Phone: Start: 08-18-2013 End: 02-06-2014 MMM MMM [facility] Work Phone: Start: 08-18-2013 End: 02-06-2014 Follow Up Appt 6 months Follow Up Appt 6 months [facility] Work Phone: Start: 08-18-2013 End: 02-06-2014 MMM MMM [facility] Work Phone: Start: 02-07-2013 End: 02-07-2013 BUSINESS BANKING MANAGER BUSINESS BANKING MANAGER [facility] Work Phone: Start: 02-07-2013 End: 02-07-2013 Follow Up Appt 6 months Follow Up Appt 6 months [facility] Work Phone: Start: 02-07-2013 End: 02-07-2013 BUSINESS BANKING MANAGER BUSINESS BANKING MANAGER [facility] Work Phone: Start: 02-07-2013 End: 02-07-2013 Follow Up Appt 6 months Follow Up Appt 6 months [facility] Work Phone: Start: 02-03-2013 End: 02-07-2013 *Hepatic Function Panel *Hepatic Function Panel [facility] Work Phone: Start: 02-03-2013 End: 02-07-2013 Lipid panel [AGGREGATE] *Lipid Profile CC PCP [facility] Work Phone: Start: 02-03-2013 End: 02-07-2013 *Hepatic Function Panel *Hepatic Function Panel [facility] Work Phone: Start: 02-03-2013 End: 02-07-2013 Lipid panel [AGGREGATE] *Lipid Profile CC PCP [facility] Work Phone: Start: 12-08-2012 End: 12-15-2012 *Hepatic Function Panel *Hepatic Function Panel [facility] Work Phone: Start: 12-08-2012 End: 12-08-2012 Follow Up Appt 2 months Follow Up Appt 2 months [facility] Work Phone: Start: 12-08-2012 End: 12-15-2012 Lipid panel [AGGREGATE] *Lipid Profile CC PCP [facility] Work Phone: Start: 12-08-2012 End: 12-08-2012 MMM MMM [facility] Work Phone: Start: 12-08-2012 End: 12-15-2012 *Hepatic Function Panel *Hepatic Function Panel [facility] Work Phone: Start: 12-08-2012 End: 12-08-2012 Follow Up Appt 2 months Follow Up Appt 2 months [facility] Work Phone: Start: 12-08-2012 End: 12-15-2012 Lipid panel [AGGREGATE] *Lipid Profile CC PCP [facility] Work Phone: Start: 12-08-2012 End: 12-08-2012 MMM MMM [facility] Work Phone: Start: 06-04-2012 End: 06-04-2012 Follow Up Appt 6 months Follow Up Appt 6 months [facility] Work Phone: Start: 06-04-2012 End: 06-04-2012 MMM [employer] [facility] Work Phone: Start: 06-04-2012 End: 06-04-2012 Follow Up Appt 6 months Follow Up Appt 6 months [facility] Work Phone: Start: 06-04-2012 End: 06-04-2012 [facility] Work Phone: Start: 2012 Screening for malignant neoplasm of breast Breast cancer screen [place], [place] Start: 2012 Screening for malignant neoplasm of colon Colon cancer screen colonoscopy [place], [place] Start: 2012 Shingles Vaccine (1 of 2) Shingles Vaccine (1 of 2) [place] Start: 2012 SHINGRIX VACCINE (1 of 2) SHINGRIX VACCINE (1 of 2) [facility] Start: 04-19-2012 End: 04-19-2012 Left Heart Cath Left Heart Cath [facility] Work Phone: Start: 04-19-2012 End: 04-19-2012 Left Heart Cath Left Heart Cath [facility] Work Phone: Start: 04-02-2011 End: 06-04-2012 *Hepatic Function Panel *Hepatic Function Panel [facility] Work Phone: Start: 04-02-2011 End: 04-02-2011 Follow Up Appt 6 months Follow Up Appt 6 months [facility] Work Phone: Start: 04-02-2011 End: 06-04-2012 Lipid panel [AGGREGATE] *Lipid Profile [facility] Work Phone: Start: 04-02-2011 End: 06-04-2012 *Hepatic Function Panel *Hepatic Function Panel [facility] [employer] Work Phone: Start: 04-02-2011 End: 04-02-2011 Follow Up Appt 6 months Follow Up Appt 6 months [facility] [employer] Work Phone: Start: 04-02-2011 End: 06-04-2012 Lipid panel [AGGREGATE] *Lipid Profile [facility] Work Phone: Start: 2007 COLOGUARD (FIT-DNA) COLOGUARD (FIT-DNA) [facility] Start: 2007 Colonoscopy COLONOSCOPY [facility] Start: 2007 COLORECTAL CANCER SCREENING COLORECTAL CANCER SCREENING [facility] Start: [address] COLONOGRAPHY [facility] Start: 2007 FECAL OCCULT BLOOD FECAL OCCULT BLOOD [facility] Start: 2007 SIGMOIDOSCOPY SIGMOIDOSCOPY [facility] Start: 2002 [facility] Start: 2002 Mammography MAMMOGRAM [facility] Start: 1992 HPV TESTING HPV TESTING [facility] Start: 1983 PAP TESTING PAP TESTING [facility] Start: 1983 Screening for malignant neoplasm of cervix Cervical cancer screen [place] Start: 1981 Urine microalbumin profile DTAP,TDAP,TD (1 - Tdap) [facility] Start: 1980 HEPATITIS C SCREENING HEPATITIS C SCREENING [facility] Start: 1980 HIV SCREENING HIV SCREENING [facility] Start: 1977 HIV screening HIV screen [place], [place] Start: 1972 Lipid panel Lipid screen [place] Start: 1962 Creatinine measurement Creatinine monitoring [place], [place] Start: 1962 Hepatitis C screening Hepatitis C screen [place], [place] Start: 1962 Potassium monitoring Potassium monitoring [place] EKG 12 Lead EKG 12 Lead ECG Routine 12/28/2019 3:08 PM EDT [place] Oxygen therapy [[facility] [place] [facility]] Initiate Oxygen Therapy Protocol Respiratory Care Routine Daily until discontinued starting 01/03/2020 [place], [place] Immunizations Immunization Date Immunization Notes Care Provider Fa tapan 04-25-2016 pneumococcal vaccine , unspecified formulation; Translations: [PNEUMOCOCCAL VAC POLYVALENT] Lindsay Rocha RN [employer] Work Phone: Payers Date Payer Category Payer Medicaid [employer] [id number] 2022-Present [phone] [address] [place] [address] Medicaid [id number] 2022 Medicaid [id number] 2019 Unknown [id number] 2017 Private Health Insurance [id number] Social History Date Type Detail Facility Start: 01-03-2020 End: 12-04-2022 Tobacco smoking status CTIS Never smoker [facility] Start: 01-03-2020 End: 12-04-2022 Tobacco use and exposure Never used [place], [place] Start: 12-28-2019 End: 01-03-2020 Alcohol intake Current drinker of alcohol (finding) [place] Start: 12-28-2019 [facility] [place] [place] Start: 1960 Sex Assigned At Not on file [place] Exposure to SARS-CoV -2 (event) Not sure [place] Start: 12-04-2022 Alcohol intake Current non-dr inker machine of alcohol (finding) [facility] Start: 03-14-2020 End: 12-04-2022 History of Social function [facility] Start: 03-14-2020 End: 12-04-2022 Tobacco use panel [facility] National Score (1-10 0), lower number is lower risk Not on file [facility] Medical Equipment Procedure Code Equipment Code Equipment Original Text Equipment Identifier Dates Arabi Thk1.65mm P tfe 4x.5in Cardiovascular Sterile - [id number] Start: 05-13-2016 Note 12-06-2022 Telephone Encounter - Apolonia Hawkins APRN.PUBLISHING AGENT - 12/06/2022 12:51 PM EDT Note Date & Type Note Facility 12-06-2022 Miscellaneous Notes Formattin g of this note might be different from the original. Patient's presents to [facility], patient was seen here on 12/04/22 [...] provider copied on this note. Apolonia Hawkins APRN.PUBLISHING AGENT documented in this encounter [facility] Note 12-05-2022 Telephone Encounter - Kristen Bermudez [...] negative COVID test documented in this encounter [facility] Progress note 12-04-2022 Note Date & Type Note Facility 12-04-2022 Note HNO ID: [id number] Author: Mary Guerrier RT(R) Service: ? Author Type: Pipe Insulator Helper Type: Progress Notes Filed: 12/04/2022 5:23 PM [...] RT Edith(R) December 04, 2022 5:04 PM [facility] Progress note 12-04-2022 Note Date & Type Note Facility 12-04-2022 Note HNO ID: [id number] Author: William Urban APRN.PUBLISHING AGENT Service: ? Author Type: Nurse Practitioner Type: [...] MG DAILY August 16, 2019 3:28pm 08-16-2019 [facility] ([id number]) guaiFENesin (MUCINEX) 600 mg 12 hr tablet [...] and S2 norm (more content not included)... [facility] Instructions 12-04-2022 Patient Instructions Note Date & Type Note Facility 12-04-2022 Instructions William Urban APRN.PUBLISHING AGENT - 12/04/2022 5:48 PM EDT ASSESSMENT/PLAN: 1. [...] COVID NAAT, ROUTINE documented in this encounter [facility] History of Present illness Narrative 12-04-2022 William [...] MG DAILY August 16, 2019 3:28pm 08-16-2019 [facility] ([id number]) guaiFENesin (MUCINEX) 600 mg 12 hr tablet [...] William MAHER APRN.CNP documented in this encounter [facility] History of Past illness Narrative 2016 Note Date & Type Note Facility documented as of this encounter (statuses as of 12/05/2022) [facility] History of Past illness Narrative 2016 Note Date & Type Note Facility documented as of this encounter (statuses as of 12/05/2022) [facility] History of Past illness Narrative 2016 Note Date & Type Note Facility documented as of this encounter (statuses as of 12/06/2022) [facility] Evaluation note Note Date & Type Note Facility documented in this encounter [facility] Summary Purpose Family History No Family History Records FoundNo Family History Records FoundNo Family History Records Found Advance Directives No Advanced Directives Records FoundLatest Code Status on File Code Status Date Activated Date Inactivated Comments Full Code 01/03/2020 6:28 PM Full Code 01/03/2020 11:56 AM 01/03/2020 6:01 PM Hospital Course Note [facility] Discharge Summary Pa tient Name: Isabella [...] care instructions given to you by your Printed Circuit Board Preassembler Oncologist's office at your pre operative visit. Please call the office with questions or concerns and be sure to follow up at your scheduled post operative visit. documented in this encounter* Instructions* Alise Block RN - 12/28/2019 Please bring your [facility] Surgical Information folder on the day of [...] through Care Everywhere. * Laparoscopic Hysterectomy: Post-op ([place]icaraguan) documented in this encounter History of Present [...] Nightly Nataliya Hayes MD 5 mg at 01/03/202057 cetirizine (ZYRTEC) tablet 5 mg 5 mg Oral Daily Nataliya Hayes MD melatonin tablet 6 mg 6 mg Oral Nightly PRN Nataliya Hayes MD 6 mg at 01/03/202100 metoprolol tartrate (LOPRESSOR) tablet 25 mg 25 mg Oral BID Nataliya Hayes MD 25 mg at 01/03/202057 pantoprazole (PROTONIX) tablet 40 mg 40 mg Oral QAM AC Nataliya Hayes MD 40 mg at 01/04/20546 torsemide (DEMADEX) tablet 40 mg 40 mg [...] 10%-15% lower than serum/plasma values. (CLIA ID [id number]) Protime 01/03/2020 11.1 9.0 - 12.0 s [...] 10%-15% lower than serum/plasma values. (CLIA ID [id number]) WBC 01/04/2020 12.3* 3.6 - 10.7 10*3/uL [...] 10%-15% lower than serum/plasma values. (CLIA ID [id number]) Assessment/Plan: Isabella R Zuercher 59 y.o. female POD#1 s/p RTLH, BSO, [...] DATE CREATED AUTHOR AUTHOR'S ORGANIZ ATION 01/16/2020 [facility] DATE CREATED AUTHOR AUTHOR'S ORGANIZ ATION 12/07/2022 [facility] Source Comments (unrecognize d section and content) In the event this informatio n is protected by the Federal Confidentiality of Alcohol and Drug Abuse Patient Records regulations: The Federal rules restrict any use of the information to criminally investigate or prosecute any alcohol or drug abuse patient.[facility] the event this information is protected by the Federal Confidentiality of Alcohol and Drug Abuse Patient Records regulations: The Federal rules restrict any use of the information to criminally investigate or prosecute any alcohol or drug abuse patient.[facility] the event this information is protected by the Federal Confidentiality of Alcohol and Drug Abuse Patient Records regulations: The Federal rules restrict any use of the information to criminally investigate or prosecute any alcohol or drug abuse patient.[facility] Reason for Visit (unrecogniz ed section and content) Reason Comments Results Reason Comments Medication Problem Care Teams (unrecognized sec tion and content) 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 [facility] [employer] [facility]. provides no warranty or guarantee of the accuracy or completeness of information in this document.
--- NOTE | 2023-04-08 18:41 | EX.ED.DYSGE1 ---
HPI History of Present Illness Chief Complaint: General Illness Narrative Narrative: 62-year-old female presenting with nausea, vomiting, diarrhea, generalized fatigue. Patient states this started before [place]. She has not episodes of this since then. She has been seen in the ER and hydrated. She states has been tested for COVID, influenza, RSV. These were all negative. Patient was discharged home with Zofran which has been taking. She states that she does eat periodically. She is middle hold on fluids. She does not excessive diarrhea. Patient's states that he is concerned that she might have endocarditis as the last time she had this she had nausea, vomiting, diarrhea. She states she had replacement of her heart valve secondary to having endocarditis. She states initially saw Dr. Xavier for a and then was transferred. Patient states she is on Coumadin for history of A-fib and heart valve replacement. [facility] Medical History Allergic rhinitis Anxiety Asthma Cancer Chronic diastolic (congestive) heart failure Congenital subaortic stenosis of membranous type COVID-19 (05/01/21) CPAP (continuous positive airway pressure) dependence Cutaneous abscess Endometrial cancer Essential (primary) hypertension History of bacterial endocarditis HLD (hyperlipidemia) Hypertension Left bundle branch block Morbid obesity Narcolepsy Nonrheumatic aortic (valve) stenosis with insufficiency Nonrheumatic mitral valve insufficiency Obesity Obstructive sleep apnea On home oxygen therapy Positive GBS test Psoriasis Secondary pulmonary arterial hypertension Streptococcal septicemia Subvalvar aortic stenosis Wears dentures Wears glasses Home Medications multivitamin with folic acid 400 mcg tablet 1 tab PO DAILY SUPPLEMETN 05/30/16 [History Last Taken 07/10/20] metformin 500 mg tablet 250 mg PO DAILY DM 08/16/19 [History Last Taken 07/10/20] melatonin 5 mg capsule 5 mg PO QHS SLEEP 05/21/20 [History Last Taken 07/09/20] omeprazole 40 mg capsule,delayed release 40 mg PO DAILY GERD 05/21/20 [History Last Taken 02/04/21] acetaminophen 500 mg tablet (Tylenol Extra Strength) 1,000 mg PO DAILY 11/08/20 [History Last Taken Unknown] cholecalciferol (vitamin D3) 1,250 mcg (50,000 unit) capsule 1,250 mcg PO QWEEK supplement 11/08/20 [History Last Taken 08/26/21] duloxetine 60 mg capsule,delayed release (Cymbalta) 120 mg PO DAILY 11/08/20 [History Last Taken 09/01/21 10:00] warfarin 5 mg tablet 2.5 mg PO DAILY 11/22/20 [History Last Taken 01/31/21] metoprolol tartrate 25 mg tablet 25 mg PO BID HEART #180 tabs 12/11/20 [Rx Last Taken 02/04/21] diphenhydramine HCl 25 mg capsule (Benadryl) 25 mg PO QHS 01/30/21 [History Last Taken Unknown] benzonatate 200 mg capsule 200 mg PO TID PRN cough #90 caps 08/30/21 [Rx Last Taken Unknown] warfarin 7.5 mg tablet 7.5 mg PO .COMPLEX #90 tabs 11/18/21 [Rx Last Taken Unknown] gabapentin 100 mg capsule 100 mg PO BID 02/04/22 [History Last Taken Unknown] gabapentin 100 mg capsule 300 mg PO QHS 02/04/22 [History Last Taken Unknown] warfarin 5 mg tablet 5 mg PO .COMPLEX #90 tabs 09/24/22 [Rx Last Taken Unknown] pravastatin 40 mg tablet 20 mg (1/2 x 40 mg) PO QHS CHOLESTEROL #45 tabs 10/20/22 [Rx Last Taken Unknown] clobetasol 0.05 % topical cream 1 applic topical BID PRN 11/05/22 [History Last Taken Unknown] magnesium oxide 500 mg tablet 500 mg PO DAILY 11/05/22 [History Last Taken Unknown] albuterol sulfate 90 mcg/actuation aerosol inhaler (Ventolin HFA) 2 puff inhalation Q4H PRN shortness of breath or wheezing #8.5 grams 01/14/23 [Rx Last Taken Unknown] allergy shot IM .weekly 01/14/23 [History Last Taken Unknown] azelastine 137 mcg (0.1 %) nasal spray aerosol 2 spray intranasal BID #30 mL 01/14/23 [Rx Last Taken Unknown] budesonide-formoterol HFA 160 mcg-4.5 mcg/actuation aerosol inhaler (Symbicort) 2 puff inhalation BID #10.2 grams 01/14/23 [Rx Last Taken Unknown] doxycycline hyclate 100 mg tablet 100 mg PO BID #20 tabs 01/14/23 [Rx Last Taken Unknown] fluticasone propionate 50 mcg/actuation nasal spray,suspension (Flonase Allergy Relief) 2 spray intranasal QDAY #1 device 01/14/23 [Rx Last Taken Unknown] guaifenesin 600 mg tablet, extended release 12 hr (Mucinex) 1,200 mg (2 x 600 mg) PO BID #60 tabs 01/14/23 [Rx Last Taken Unknown] ipratropium 0.5 mg-albuterol 3 mg (2.5 mg base)/3 mL nebulization soln 3 ml inhalation Q4H PRN PRN SOB &/OR WHEEZING #180 mL 01/14/23 [Rx Last Taken Unknown] loratadine 10 mg tablet 10 mg PO DAILY ALLERGIES #90 tabs 01/14/23 [Rx Last Taken Unknown] levofloxacin 750 mg tablet 750 mg PO DAILY #7 tabs 01/19/23 [Rx Last Taken Unknown] prednisone 20 mg tablet 60 mg (3 x 20 mg) PO QDAY #15 tabs 01/27/23 [Rx Last Taken Unknown] potassium chloride 20 mEq tablet,extended release(part/cryst) (Klor-Con M) 20 meq PO .COMPLEX this RX is for dose correction #270 tabs 02/02/23 [Rx Last Taken Unknown] torsemide 20 mg tablet 40 mg (2 x 20 mg) PO DAILY FLUID #180 tabs 03/27/23 [Rx Last Taken Unknown] diphenoxylate-atropine 2.5 mg-0.025 mg tablet (Lomotil) 1 tab PO 4X/DAY PRN PRN diarrhea 5 days #20 tabs 04/06/23 [Rx Last Taken Unknown] lorazepam 1 mg tablet (Ativan) 1 mg PO TID PRN Muscle cramps/spasms 5 days #15 tabs 04/06/23 [Rx Last Taken Unknown] ondansetron 4 mg disintegrating tablet 4 mg PO TID PRN nausea and vomiting #21 tabs 04/06/23 [Rx Last Taken Unknown] metoclopramide HCl 10 mg tablet (Reglan) 10 mg PO Q6H PRN nausea and vomiting #14 tabs 04/08/23 [Rx Last Taken Unknown] nitrofurantoin monohydrate/macrocrystals 100 mg capsule (Macrobid) 100 mg PO Q12H 7 days #14 caps 04/08/23 [Rx Last Taken Unknown] Allergy/AdvReac Type Severity Reaction Status Date / Time clarithromycin [From Biaxin] Allergy Severe SOB, hives Verified 04/08/23 17:34 and swelling cephalexin [Cephalexin] Allergy Rash Verified 04/08/23 17:34 simvastatin Allergy Rash Verified 04/08/23 17:34 sulfamethoxazole Allergy Rash Verified 04/08/23 17:34 trimethoprim Allergy Rash/leg Verified 04/08/23 17:34 swelling bupropion AdvReac Severe worsened Verified 04/08/23 17:34 depression adhesive tape AdvReac Itching Verified 04/08/23 17:34 ciprofloxacin AdvReac Itching Verified 04/08/23 17:34 Macrolide Antibiotics AdvReac Unknown Verified 04/08/23 17:34 Penicillins AdvReac Unknown Verified 04/08/23 17:34 Family History Father CAD (coronary artery disease) Hypertension Mother , age 55 Sudden cardiac Hypertension Abdominal aortic aneurysm rupture Brother Hypertension Sister Hypertension Surgical History H/O bilateral salpingo-oophorectomy (01/2020) History of mechanical aortic valve replacement (05/13/16) History of mitral valve replacement with mechanical valve (05/13/16) History of robot-assisted laparoscopic hysterectomy (01/2020) History of tubal ligation HX venous access device placed Resection of subaortic membrane (2002) Social History household members: spouse number of children: 4 current occupational status: unemployed history of recent travel: No sexually active: Yes Smoking Status: Never smoker alcohol intake: never substance use type: does not use diet: low carbohydrate caffeine: No what type of physical activity do you participate in: walking seatbelt use: always do you feel safe at home: Yes additional social history: - Dylan DAIGLE ROS ED Constitutional Constitutional ED: Reports chills, fever(s) and sweats Eyes Eyes: Denies blurry vision or change in vision ENT ENT ED: Denies ear pain or sore throat Cardiovascular Cardiovascular: Denies chest pain, palpitations or racing heartbeat Respiratory/Chest Respiratory/Chest: Denies cough, dyspnea or sputum Gastrointestinal Gastrointestinal: Reports abdominal pain, diarrhea, nausea and vomiting; Denies constipation Genitourinary Genitourinary ED: Denies dysuria, hematuria or urinary frequency Musculoskeletal Musculoskeletal: Reports myalgias; Denies arthralgias or neck pain Integumentary Denies abscess, Abrasions or rash Neurologic Neurologic: Denies headache(s) or paresthesias Psychiatric Psychiatric: Denies anxiety, depression, suicidal ideation or suicidal thoughts Endocrine Endocrinology: Denies polydipsia or polyuria EXAM Physical Exam Const Vital Signs: 04/08/23 17:34 04/08/23 17:50 04/08/23 17:50 Temperature 96.8 F L Temperature Source Temporal Pulse Rate 90 94 Respiratory Rate 20 H 18 Respiratory Effort Normal Non-Labored Respiratory Pattern Normal Blood Pressure 110/98 H 97/74 Blood Pressure Mean 102 81 Pulse Ox 97 92 Oxygen Delivery Method Room Air Room Air 04/08/23 18:57 04/08/23 19:30 04/08/23 20:40 Temperature Temperature Source Pulse Rate 80 76 Respiratory Rate 17 15 Respiratory Effort Respiratory Pattern Blood Pressure 122/70 H 103/62 Blood Pressure Mean 87 75 Pulse Ox 95 98 Oxygen Delivery Method Room Air Room Air Room Air 04/08/23 21:28 Temperature Temperature Source Pulse Rate 81 Respiratory Rate 16 Respiratory Effort Respiratory Pattern Blood Pressure 116/74 Blood Pressure Mean 88 Pulse Ox 97 Oxygen Delivery Method General Appearance ED: NAD HEENT Reports moist mucous membranes Eyes PERRL and EOMs intact bilaterally Neck no lymphadenopathy Chest Wall inspection of chest normal Resp normal respiratory effort and clear to auscultation bilaterally Auscultation: Negative for rales, rhonchi or wheezes Cardio regular rate and regular rhythm GI normal to inspection, nondistended, normoactive bowel sounds Neuro oriented x3 and CN's II-XII intact bilaterally Sensorium / Orientation: alert Psych mental status grossly normal Skin no rashes or lesions noted General Skin Exam: Negative for jaundice MDM MDM MDM Narrative Medical decision making narrative: Presenting nausea, vomiting, diarrhea, generally feeling unwell. Vital signs are stable and she is afebrile. Patient concerned that she might have endocarditis. This was an EKG, chest x-ray, high-sensitivity troponin will be obtained. Patient also milligrams symptoms. Dehydration, electrode normalities, anemia are all in differential as well. Patient given IV fluids, Reglan. Will obtain CBC to assess white blood cell count, hemoglobin, platelets. MP to assess renal function, electrolytes. Urinalysis to assess for UTI. INR will be obtained as the patient is on Coumadin. CBC shows no leukocytosis. Hemoglobin stable at 12. Platelets are normal at 195. Renal function is within normal limits. Sodium slightly low 130 potassium 2.7. Potassium was repleted orally and the patient was given normal saline. INR 3.2 and therefore therapeutic. Analysis consistent with UTI. Patient started on Macrobid due to multiple allergies. She has a normal renal function. She was able to take the first dose in the ER as well. EKG on my interpretation showed A-fib at 82 bpm. Patient therapeutic on her Coumadin so I have low suspicion for PE. Chest x-ray my interpretation shows a small minimal right lower pleural effusion. Sensitivity troponin was 40 and therefore within normal limits. Will send a urine culture. Return precautions were discussed. Impression: 1. Nausea/vomiting 2. A-fib 3. Diarrhea 4. Hypokalemia 5. Hyponatremia 6. UTI Lab Data Attestation: I reviewed the patient's lab results. Labs: Laboratory Results - last 24 hr 04/08/23 04/08/23 18:50 19:23 WBC 9.4 RBC 3.97 L Hgb 12.0 Hct 35.9 L MCV 90.4 MCH 30.2 MCHC 33.4 RDW Std Deviation 47.4 H RDW Coeff of Ham 14.4 Plt Count 195 MPV 11.5 Immature Gran % (Auto) 0.600 Neut % (Auto) 77.5 H Lymph % (Auto) 12.2 L [place] % (Auto) 6.9 Eos % (Auto) 2.2 Baso % (Auto) 0.6 Absolute Neuts (auto) 7.3 Absolute Lymphs (auto) 1.15 Nucleated RBC % 0 Differential Comment SCANNED PT 33.1 H INR 3.2 Sodium 130 L Potassium 2.7 L* Chloride 92 L Carbon Dioxide 31.0 Anion Gap 7 BUN 14 Creatinine 0.88 Est GFR (MDRD) Af Amer 84 Est GFR (MDRD) Non-Af 70 BUN/Creatinine Ratio 15.9 Glucose 108 H Calcium 8.7 Troponin I High Sens 40 Urine Color Yellow Urine Clarity Clear Urine pH 6.5 Ur Specific [place] 1.010 Urine Protein 15 H Urine Glucose (UA) Normal Urine Ketones Negative Urine Occult Blood 10 H Urine Nitrite Negative Urine Bilirubin Negative Urine Urobilinogen 1 H Ur Leukocyte Esterase 500 H Urine RBC 0 SEEN Urine WBC 10-25 SEEN Ur Squamous Epith Cells 0 SEEN Urine Bacteria 2+ Urine Mucus 0 SEEN Radiography Diagnostic Testing: Clinical Impression(s) from Imaging Studies Chest X-Ray 04/08/23 19:09 IMPRESSION: Tiny right pleural effusion. Cardiomegaly. Electronically Signed: Modesto Freed MD at 19:30 EST , Discharge Plan Triage Chief Complaint: General Illness ED Provider: Jose Manning Dx/Rx/DC Orders Instructions: ED Hypokalemia, ED Cystitis Female Adult, ED Gastroenteritis, Viral (Adult) Prescriptions: New metoclopramide HCl [Reglan] 10 mg tablet 10 mg PO Q6H PRN (Reason: nausea and vomiting) Qty: 14 0RF nitrofurantoin monohyd/m-cryst [Macrobid] 100 mg capsule 100 mg PO Q12H 7 Days Qty: 14 0RF Rx Instructions: must administer with a meal/food No Action duloxetine [Cymbalta] 60 mg capsule,delayed release(DR/EC) 120 mg PO DAILY metformin 500 mg tablet 250 mg PO DAILY metoprolol tartrate 25 mg tablet 25 mg PO BID Qty: 180 3RF acetaminophen [Tylenol Extra Strength] 500 mg tablet 1,000 mg PO DAILY benzonatate 200 mg capsule 200 mg PO TID PRN (Reason: cough) Qty: 90 0RF gabapentin 100 mg capsule 100 mg PO BID gabapentin 100 mg capsule 300 mg PO QHS albuterol sulfate [Ventolin HFA] 90 mcg/actuation HFA aerosol inhaler 2 puff INHALATION Q4H PRN (Reason: shortness of breath or wheezing) Qty: 8.5 6RF budesonide-formoterol [Symbicort] 160-4.5 mcg/actuation HFA aerosol inhaler 2 puff inhalation BID Qty: 10.2 6RF fluticasone propionate [Flonase Allergy Relief] 50 mcg/actuation spray,suspension 2 spray INTRANASAL QDAY Qty: 1 3RF Rx Instructions: administer into each nostril ipratropium-albuterol 0.5 mg-3 mg(2.5 mg base)/3 mL solution for nebulization 3 ml inhalation Q4H PRN PRN (Reason: SOB &/OR WHEEZING) Qty: 180 6RF loratadine 10 mg tablet 10 mg PO DAILY Qty: 90 3RF azelastine 137 mcg (0.1 %) aerosol,spray 2 spray intranasal BID Qty: 30 3RF Rx Instructions: administer into each nostril allergy shot IM .weekly Patient Comments: At [facility] doxycycline hyclate 100 mg tablet 100 mg PO BID Qty: 20 0RF clobetasol 0.05 % cream 1 applic topical BID PRN magnesium oxide 500 mg tablet 500 mg PO DAILY multivitamin with folic acid 1 TABLET tablet 1 tab PO DAILY omeprazole 40 MG capsule,delayed release(DR/EC) 40 mg PO DAILY melatonin 5 MG capsule 5 mg PO QHS cholecalciferol (vitamin D3) 1,250 mcg (50,000 unit) capsule 1,250 mcg PO QWEEK Patient Comments: TAKE 1 CAPSULE BY MOUTH ONCE A WEEK diphenhydramine HCl [Benadryl] 25 MG capsule 25 mg PO QHS ondansetron 4 mg tablet,disintegrating 4 mg PO TID PRN (Reason: nausea and vomiting) Qty: 21 0RF diphenoxylate-atropine [Lomotil] 2.5-0.025 mg tablet 1 tab PO 4X/DAY PRN PRN (Reason: diarrhea) 5 Days Qty: 20 0RF lorazepam [Ativan] 1 mg tablet 1 mg PO TID PRN (Reason: Muscle cramps/spasms) 5 Days Qty: 15 0RF warfarin 5 mg tablet 2.5 mg PO DAILY Protocol: Dose Management Condition: Thursday Dose/Route: 7.5 mg Instruction: 1 x 7.5 mg tablet Condition: Thursday Dose/Route: 5 mg Instruction: 1 x 5 mg tablet Condition: Thursday Dose/Route: 5 mg Instruction: 1 x 5 mg tablet Condition: Thursday Dose/Route: 5 mg Instruction: 1 x 5 mg tablet Condition: Dose/Route: 5 mg Instruction: 1 x 5 mg tablet Condition: Thursday Dose/Route: 5 mg Instruction: 1 x 5 mg tablet Condition: Thursday Dose/Route: 5 mg Instruction: 1 x 5 mg tablet Protocol Text: Adjustment Start Date: Thursday02/04/23 INR Value: 3.5 INR Date: 02/03/23 Recheck Date: 02/18/23 Rx Instructions: THURSDAY AND THURSDAY AND THURSDAY warfarin 7.5 mg tablet 7.5 mg PO .COMPLEX Qty: 90 3RF Protocol: Dose Management Condition: Thursday Dose/Route: 7.5 mg Instruction: 1 x 7.5 mg tablet Condition: Thursday Dose/Route: 5 mg Instruction: 1 x 5 mg tablet Condition: Thursday Dose/Route: 5 mg Instruction: 1 x 5 mg tablet Condition: Thursday Dose/Route: 5 mg Instruction: 1 x 5 mg tablet Condition: Dose/Route: 5 mg Instruction: 1 x 5 mg tablet Condition: Thursday Dose/Route: 5 mg Instruction: 1 x 5 mg tablet Condition: Thursday Dose/Route: 5 mg Instruction: 1 x 5 mg tablet Protocol Text: Adjustment Start Date: Thursday02/04/23 INR Value: 3.5 INR Date: 02/03/23 Recheck Date: 02/18/23 Rx Instructions: 7.5 mg orally Thursday through Thursday (takes a 2.5 mg tablet on Thursday and Thursday); or as directed for dose changes warfarin 5 mg tablet 5 mg PO .COMPLEX Qty: 90 4RF Protocol: Dose Management Condition: Thursday Dose/Route: 7.5 mg Instruction: 1 x 7.5 mg tablet Condition: Thursday Dose/Route: 5 mg Instruction: 1 x 5 mg tablet Condition: Thursday Dose/Route: 5 mg Instruction: 1 x 5 mg tablet Condition: Thursday Dose/Route: 5 mg Instruction: 1 x 5 mg tablet Condition: Dose/Route: 5 mg Instruction: 1 x 5 mg tablet Condition: Thursday Dose/Route: 5 mg Instruction: 1 x 5 mg tablet Condition: Thursday Dose/Route: 5 mg Instruction: 1 x 5 mg tablet Protocol Text: Adjustment Start Date: Thursday02/04/23 INR Value: 3.5 INR Date: 02/03/23 Recheck Date: 02/18/23 Rx Instructions: 5 mg PO take 1 tab by mouth daily or as directed; pravastatin 40 mg tablet 20 mg PO QHS Qty: 45 3RF guaifenesin [Mucinex] 600 mg tablet extended release 12hr 1,200 mg PO BID Qty: 60 11RF levofloxacin 750 mg tablet 750 mg PO DAILY Qty: 7 0RF prednisone 20 mg tablet 60 mg PO QDAY Qty: 15 0RF Rx Instructions: administer with food or milk potassium chloride [Klor-Con M20] 20 mEq tablet,ER particles/crystals 20 meq PO .COMPLEX Qty: 270 3RF Rx Instructions: 20 mEq orally 2 tablets in the morning and 1 tablet at suppertime; torsemide 20 mg tablet 40 mg PO DAILY Qty: 180 3RF [facility] - Disposition Disposition: Home, Self Care Discharge Date/Time: 04/08/23 21:30
[2023-04-08] MEDS: Aspirin 81 MG TAB.CHEW 324 MG PO (19:04)
[2023-04-08] MEDS: 0.9% Normal Saline (1000mL) 1,000 ML 999 ML IV (19:04)
[2023-04-08 19:05] LABS: Absolute Lymphocyte Count 1.15 X10^3/uL (0.83-4.51); Absolute Neutrophil Count 7.3 X10^3/uL (2.0-7.7); Basophil# 0.06 X10^3/uL; Basophil% 0.6 % (0-1); Eosinophil# 0.21 X10^3/uL; Eosinophils% 2.2 % (0-5); Hematocrit 35.9 % (37-47); Lymphocyte # 1.15 X10^3/ul (0.83-4.51); Lymphocyte % 12.2 % (19-41); Mean Corp Hgb Conc 33.4 g/dL (32-36); Mean Corpuscular Hgb 30.2 pg (27.0-32.0); Mean Corpuscular Volume 90.4 fL (81-99); Mean Platelet Vol. 11.5 fl (6.2-12.0); Monocyte# 0.65 X10^3/uL; Monocyte% 6.9 % (0-10); NRBC Flagged by Analyzer 0 % (0-5); Neutrophil # 7.26 X10^3/uL (2.7-7.7); Neutrophil % 77.5 % (47-70); POSITIVE MORPHOLOGY YES; Platelet Count 195 K/mm3 (150-450); RBC Distribution Width CV 14.4 % (11.6-14.6); RBC Distribution Width SD 47.4 fl (35.1-43.9); Red Blood Count 3.97 M/mm3 (4.2-5.4); White Blood Count 9.4 K/mm3 (4.4-11.0)
[2023-04-08] MEDS: Metoclopramide 10 MG/2 ML Vial IV (19:05)
[2023-04-08 19:07] LABS: Differential Indicated SCAN CRITERIA MET
--- NOTE | 2023-04-08 19:09 | RAD_ITS ---
STUDY: X-RAY CHEST REASON FOR EXAM: Female, 62 years old. chest pain TECHNIQUE: Single AP portable view of the chest. COMPARISON: 04/06/2023 FINDINGS: Status post heart valve replacement surgery. The lungs are clear and expanded. Tiny right pleural effusion. There is moderate cardiac enlargement. Normal mediastinum and pauline. Normal visualized pulmonary arteries. Normal visualized aortic arch and descending thoracic aorta. Normal visualized thoracic spine. Normal visualized ribs, clavicles, and shoulders. There is no demonstrated abnormality of the visualized soft tissue structures of the upper abdomen. RAD/Chest 1 View (Portable) IMPRESSION: Tiny right pleural effusion. Cardiomegaly. Electronically Signed: Modesto Freed MD at 19:30 EST ,
[2023-04-08 19:15] LABS: International Normalized Ratio 3.2; Prothrombin Time (Protime)PT. 33.1 SECONDS (11.7-14.9)
[2023-04-08 19:21] LABS: Differential Comment SCANNED
[2023-04-08 19:30] VITALS: BP 122/70; PULSE 80; RESP 17; O2SAT 95
[2023-04-08 19:30] LABS: Mucous, Urine 0 SEEN /hpf (<or=2+); Red Blood Cells-Urine 0 SEEN /hpf (0-5); Squamous Epithelial Cells - UA 0 SEEN /hpf (5-10)
[2023-04-08 19:34] LABS: Anion Gap 7 (5-15); BUN 14 mg/dL (7-18); BUN/Creat Ratio 15.9 RATIO (10-20); Calcium,Total 8.7 mg/dL (8.5-10.1); Chloride 92 mmol/L (98-107); Creatinine, Serum 0.88 mg/dL (0.55-1.02); EST Glomerular Filtration Rate 70 mL/min (>60); Est Glom Filt Rate - Afr Amer 84 mL/min (>60); Glucose 108 mg/dL (74-106); Potassium 2.7 mmol/L (3.5-5.1); Sodium Level 130 mmol/L (136-145); Troponin-I HS 40 pg/mL (3.0-54.0)
[2023-04-08 19:46] LABS: Color, Urine Yellow (Yellow); Glucose, Dipstick Normal (Normal); Ketone-Dipstick Negative (Negative); Leukocyte Esterase-Dipstick 500 /ul (Negative); Nitrite-Dipstick Negative (Negative); Occult Blood-Urine 10 /ul (Negative); Protein-Dipstick 15 mg/dl (Negative); Urine Bilirubin Dipstick Negative (Negative); Urine Clarity Clear (Clear); Urine Urobilinogen 1 mg/dl (Normal); Urine pH 6.5 (5.0 - 8.0)
[2023-04-08 19:52] LABS: Bacteria 2+ /hpf (None Seen); White Blood Cells 10-25 SEEN /hpf (0-5)
[2023-04-08 20:40] VITALS: BP 103/62; PULSE 76; RESP 15; O2SAT 98
[2023-04-08] MEDS: Nitrofurantoin Macrocrystals 100 MG Capsule PO (21:00)
[2023-04-08] MEDS: Potassium Chloride Oral Soln 20 MEQ/15 ML UDC 40 MEQ PO (21:22)
[2023-04-08 21:28] VITALS: BP 116/74; PULSE 81; RESP 16; O2SAT 97
== END 2023-04-08 21:30 | disposition home or self-care (01) ==
PROVIDERS: Emergency Provider Student in an Organized Health Care Education/Training Program; Visit Provider Student in an Organized Health Care Education/Training Program
DX: N39.0 Urinary tract infection, site not specified (principal); I11.0 Hypertensive heart disease with heart failure; I50.32 Chronic diastolic (congestive) heart failure; I48.91 Unspecified atrial fibrillation; Z97.2 Presence of dental prosthetic device (complete) (partial); R19.7 Diarrhea, unspecified; E87.6 Hypokalemia; E87.1 Hypo-osmolality and hyponatremia; R11.2 Nausea with vomiting, unspecified; B96.1 Klebsiella pneumoniae [K. pneumoniae] as the cause of diseases classified elsewhere; Z79.01 Long term (current) use of anticoagulants; Z99.89 Dependence on other enabling machines and devices; Z85.89 Personal history of malignant neoplasm of other organs and systems; E78.5 Hyperlipidemia, unspecified; Z99.81 Dependence on supplemental oxygen; F41.9 Anxiety disorder, unspecified; Z79.899 Other long term (current) drug therapy; Z79.51 Long term (current) use of inhaled steroids; Z90.722 Acquired absence of ovaries, bilateral; Z95.2 Presence of prosthetic heart valve; Z90.710 Acquired absence of both cervix and uterus
CPT/HCPCS: 71045; 80048; 81001; 84484; 85025; 85610; 87040; 93005; 96361; 96374; 99285; J7030; A4216

== ENCOUNTER 2023-04-15 18:47 | Emergency (ER) | payer OTHER, SELFPAY ==
[2023-04-15 18:48] VITALS: BP 135/62; PULSE 98; RESP 20; TEMP 37.2; O2SAT 97; BMI 39.9
[2023-04-15 19:15] LABS: Absolute Lymphocyte Count 0.81 X10^3/uL (0.83-4.51); Absolute Neutrophil Count 4.9 X10^3/uL (2.0-7.7); Basophil# 0.04 X10^3/uL; Basophil% 0.6 % (0-1); Eosinophil# 0.09 X10^3/uL; Eosinophils% 1.4 % (0-5); Hematocrit 36.1 % (37-47); Hemoglobin 11.4 g/dL (12.0-15.0); Lymphocyte # 0.81 X10^3/ul (0.83-4.51); Mean Corp Hgb Conc 31.6 g/dL (32-36); Mean Corpuscular Hgb 29.9 pg (27.0-32.0); Mean Corpuscular Volume 94.8 fL (81-99); Mean Platelet Vol. 9.8 fl (6.2-12.0); Monocyte# 0.25 X10^3/uL; NRBC Flagged by Analyzer 0 % (0-5); Neutrophil # 4.94 X10^3/uL (2.7-7.7); Neutrophil % 79.7 % (47-70); Platelet Count 309 K/mm3 (150-450); RBC Distribution Width CV 15.9 % (11.6-14.6); RBC Distribution Width SD 55.6 fl (35.1-43.9); Red Blood Count 3.81 M/mm3 (4.2-5.4); White Blood Count 6.2 K/mm3 (4.4-11.0)
[2023-04-15 19:55] LABS: ALB/GLOB Ratio 0.5 RATIO (0.9-2.4); AST(SGOT) 29 U/L (15-37); Alanine Aminotransfer ALT/SGPT 35 U/L (13-56); Albumin, Serum 2.7 g/dL (3.2-5.0); Alkaline Phosphatase 100 U/L (45-117); Anion Gap 6 (5-15); BUN 14 mg/dL (7-18); BUN/Creat Ratio 17.1 RATIO (10-20); Calcium,Total 8.2 mg/dL (8.5-10.1); Chloride 102 mmol/L (98-107); Creatinine, Serum 0.82 mg/dL (0.55-1.02); EST Glomerular Filtration Rate 76 mL/min (>60); Est Glom Filt Rate - Afr Amer 92 mL/min (>60); Estimated Creatinine Clearance 95.92 ml/min; Globulin 5.6 g/dL (2.2-4.2); Glucose 205 mg/dL (74-106); Potassium 3.8 mmol/L (3.5-5.1); Protein, Total 8.3 g/dL (6.4-8.2); Sodium Level 137 mmol/L (136-145)
--- OUTSIDE RECORDS SUMMARY | 2023-04-15 20:21 | XMS RPT_ITS | CCD ---
Author Name Unknown Address [address] [place] [address] Organization [facility] Care Team Providers Care Director Educational Radio Name Role Phone Marcia Lindsey Unavailable Unavailable Radha Hsu Unavailable Hans Denson Unavailable Unavailable MD Tip, Dick Conde Unavailable Christianne CARBALLO, Gianluca Stubbs Unavailable Unavailable Christianne CARBALLO, Gianluca Stubbs Unavailable Unavailable Radha Hsu Unavailable Gianluca Faust RN Unavailable Unavailable Christianne CARBALLO, Gianluca Stubbs Unavailable [...] sources) cephalexin drug allergy swelling & Rash [facility] Work Phone: [phone] (11 sources) ciprofloxacin drug allergy 04-09-19 17 [facility] Work Phone: [phone] (11 sources) clarithromycin drug allergy 06-05-19 13 SOB, Hives and swelling [facility] Work Phone: [phone] (15 sources) penicillin; Translations: [PENICILLIN] drug allergy 04-24-19 17 Unknown [facility] Work Phone: [phone] (13 sources) simvastatin; Translations: [SIMVASTATIN] food allergy 06-05-19 13 Rash [facility] Work Phone: [phone] (11 sources) sulfamethoxazole / trimethoprim drug allergy 10-22-19 16 Rash [facility] Work Phone: [phone] (11 sources) BUPROPRION drug allergy 06-05-19 13 worsened depression [facility] Work Phone: [phone] (2 sources) Adhesive Tape Propensity to adverse reactions to drug 12-19-19 Itching [place], [place] (2 sources) buPROPion Drug Allergy 12-19-19 [place] (2 sources) Cephalexin Drug Allergy 12-19-19 Rash [place] (6 sources) Ciprofloxacin; Translations: [CIPROFLOXACIN] Drug Allergy 04-24-19 Mental Status Change [place] (2 sources) Clarithromycin Drug Allergy 12-19-19 Hives, Shortness Of Breath, Swelling [place] (2 sources) Penicillins Propensity to adverse reactions to drug 12-19-19 Other (See Comments) [place] (2 sources) Sulfamethoxazole Drug Allergy 12-19-19 [place] (2 sources) Trimethoprim Drug Allergy 12-19-19 [place] (2 sources) Macrolides And Ketolides Propensity to adverse reactions to drug 12-19-19 [place] (4 sources) Adhesive Tape; Translations: [ADHESIVE TAPE (ROSINS)] Allergy to substance 05-09-19 [facility] (4 sources) Sulfonamides (Antibiotic); Translations: [SULFA (SULFONAMIDE ANTIBIOTICS)] Drug Allergy 04-24-19 17 [facility] Medications Current Medications Medication Drug Class(es) [...] 5-325 MG TABS As needed OXYCODONE-ACETAMINO PHEN [id number] Dick Whelan MD Problems Active Problems Problem [...] 09-25-2016 Episodic Other aftercare (16 sources) Other detention (current) drug therapy; Translations: [Long-term (current) use [...] 16:45-0400 Body temperature 97.39 [degF] William Urban ADJUNCT FACULTY MATHEMATICS DEPARTMENT.CRITICAL CARE CLINICAL NURSE SPECIALIST Work Phone: [facility] 12-04-2022 16:45-0400 Body weight 115.39 kg William Urban ADJUNCT FAC[employer] MATHEMATICS DEPARTMENT.CRITICAL CARE CLINICAL NURSE SPECIALIST Work Phone: [facility] 12-04-2022 16:45-0400 Diastolic blood pressure 78 mm[Hg] William Urban ADJUNCT FACULTY MATHEMATICS DEPARTMENT.CRITICAL CARE CLINICAL NURSE SPECIALIST Work Phone: [facility] 12-04-2022 16:45-0400 Heart rate 76 /min William Urban ADJUNCT FAC[employer]Y MATHEMATICS DEPARTMENT.CRITICAL CARE CLINICAL NURSE SPECIALIST Work Phone: [facility] 12-04-2022 16:45-0400 Respiratory rate 18 /min William Urban ADJUNCT FAC[employer]Y MATHEMATICS DEPARTMENT.CRITICAL CARE CLINICAL NURSE SPECIALIST Work Phone: [facility] 12-04-2022 16:45-0400 SaO2% (BldA) [Mass fraction] 96 % William Urban ADJUNCT FAC[employer]Y MATHEMATICS DEPARTMENT.CRITICAL CARE CLINICAL NURSE SPECIALIST Work Phone: [facility] 12-04-2022 16:45-0400 Systolic blood pressure 140 mm[Hg] William Urban ADJUNCT FACULTY MATHEMATICS DEPARTMENT.CRITICAL CARE CLINICAL NURSE SPECIALIST Work Phone: [facility] 01-04-2020 09:27-0400 Body Temperature 96.8 [degF] Isaac Mcneil [facility] 01-04-2020 09:27-0400 BP Diastolic 51 mm[Hg] Isaac Mcneil [facility] , [place] 01-04-2020 09:27-0400 BP Systolic 110 mm[Hg] Isaactika Mcneil [facility] [place] 01-04-2020 09:27-0400 Pulse (Heart Rate) 70 /min Isaac Mcneil [facility] 01-04-2020 09:27-0400 Pulse Oximetry 94 % Isaac Mcneil [facility] [place] 01-04-2020 09:27-0400 Respiratory Rate 18 /min Isaac Mcneil [facility] 01-03-2020 11:59-0400 BMI (Body Mass Index) 39.97 kg/m2 Isaac Mendez [facility], [place] 01-03-2020 11:59-0400 Body weight 117.48 kg Isaac Mendez [facility] , [place] 01-03-2020 11:59-0400 Height 171.5 cm [facility] [place] 12-28-2019 14:10-0400 BMI (Body Mass Index) 39.97 kg/m2 Isaac Mendez [facility] 12-28-2019 14:10-0400 Body Temperature 96.69 [degF] Isaac Mendez [facility] 12-28-2019 14:10-0400 Body weight 117.48 kg [facility] [place] 12-28-2019 14:10-0400 BP Diastolic 75 mm[Hg] Isaac Mcneil [facility] [place] 12-28-2019 14:10-0400 BP Systolic 147 mm[Hg] Isaac Mcneil [facility] [place] 12-28-2019 14:10-0400 Pulse (Heart Rate) 82 /min Isaac Mcneil [facility] 12-28-2019 14:10-0400 Pulse Oximetry 95 % Isaac Mcneil [facility] [place] 12-28-2019 14:10-0400 Respiratory Rate 18 /min Isaac Mcneil [facility] 11-25-2016 06:57-0400 BMI (Body Mass Index) 40.09 kg/m2 Marcia César [facility] Work Phone: 11-25-2016 06:57-0400 Body Temperature 98.1 [degF] Marciacira Lindsey [facility] Work Phone: 11-25-2016 06:57-0400 BP Diastolic 80 mm[Hg] Marciacira Lindsey [facility] Work Phone: 11-25-2016 06:57-0400 BP Systolic 144 mm[Hg] Marcia César [facility] Work Phone: 11-25-2016 06:57-0400 Height 170.18 cm Marcia César [facility] Work Phone: 11-25-2016 06:57-0400 Pulse (Heart Rate) 78 /min [facility] Work Phone: 11-25-2016 06:57-0400 Respiratory Rate 18 /min [facility] Work Phone: 11-25-2016 06:57-0400 Weight 116.12 kg [facility] Work Phone: 09-26-2016 13:13-0400 BMI (Body Mass Index) 40.09 kg/m2 [facility] Work Phone: 09-26-2016 13:13-0400 BP Diastolic 70 mm[Hg] Radha Hsu [facility] Work Phone: 09-26-2016 13:13-0400 BP Systolic 130 mm[Hg] Radha Hsu [facility] Work Phone: 09-26-2016 13:13-0400 Height 170.18 cm Radha Hsu [facility] Work Phone: 09-26-2016 13:13-0400 Pulse (Heart Rate) 60 /min [facility] Work Phone: 09-26-2016 13:13-0400 Respiratory Rate 18 /min [facility] Work Phone: 09-26-2016 13:13-0400 Weight 116.12 kg Radha Hsu [facility] Work Phone: 06-30-2016 09:33-0400 BMI (Body Mass Index) 41.16 kg/m2 Gianluca Faust RN [facility] Work Phone: 06-30-2016 09:33-0400 Body Temperature 98 [degF] Gianluca Faust RN [facility] Work Phone: 06-30-2016 09:33-0400 BP Diastolic 66 mm[Hg] Gianluca Faust RN [facility] Work Phone: 06-30-2016 09:33-0400 BP Systolic 134 mm[Hg] Gianluca Faust RN [facility] Work Phone: 06-30-2016 09:33-0400 Height 170.18 cm Gianluca Faust RN [facility] Work Phone: 06-30-2016 09:33-0400 Pulse (Heart Rate) 73 /min Gianluca Faust RN [facility] Work Phone: 06-30-2016 09:33-0400 Pulse Oximetry 98 % Gianluca Faust RN [facility] Work Phone: 06-30-2016 09:33-0400 Respiratory Rate 20 /min Gianluca Faust RN [facility] Work Phone: 06-30-2016 09:33-0400 Weight 119.21 kg Gianluca Faust RN [facility] Work Phone: 06-18-2016 12:57-0400 Heart rate 76 /min Lindsay Rocha RN [facility] Work Phone: 11-28-2015 09:00-0400 Body Temperature 97.52 [degF] Gianluca Faust RN [facility] Work Phone: 11-28-2015 09:00-0400 BSA (Body Surface Area) 2.36 m2 Gianluca Faust RN [facility] Work Phone: 11-28-2015 09:00-0400 Height 170.18 cm Gianluca Faust RN [facility] Work Phone: 11-28-2015 09:00-0400 Weight 130.91 kg Gianluca Faust RN [facility] Work Phone: 10-11-2015 09:20-0400 Pulse Oximetry 98 % Gianluca Faust RN [facility] Work Phone: Encounters Encounter Date Encounter Type Care Provider Facility Start: 12-06-2022 Telephone encounter Apolonia Víctor Shelley APRN.CRITICAL CARE CLINICAL NURSE SPECIALIST Work Phone: [facility] Care Procedures Date Procedure Procedure Detail Performing Clinician Start: 12-04-2022 Radiologic exam chest 2 views William Urban ADJUNCT FAC[employer]Y MATHEMATICS DEPARTMENT.CRITICAL CARE CLINICAL NURSE SPECIALIST Work Phone: Start: 01-04-2020 Gluc bld gluc [...] Nichol Paez MD Start: 06-18-2016 End: 06-18-2016 VETERINARY MILK SPECIALIST Dick Whelan MD Start: 06-18-2016 End: 06-18-2016 Ecg routine ecg w/least 12 lds w/i&r Dick Whelan MD Start: 06-18-2016 End: 06-18-2016 Follow Up Appt 3 months Margarita Brown Start: 06-18-2016 End: 06-18-2016 VETERINARY MILK SPECIALIST Dick Whelan MD Start: 06-18-2016 End: 06-18-2016 [...] Follow Up Appt 1 month Corinayuki rucker CRITICAL CARE CLINICAL NURSE SPECIALIST Work Phone: Start: 10-22-2015 End: 10-22-2015 Chest x-ray Corina Gleason CNP Work Phone: Start: 10-22-2015 End: 10-22-2015 Fibrin D-dimer FEU Corina Gleason CNP Work Phone: Start: 10-22-2015 End: 10-22-2015 Follow Up Appt 1 month Corina rucker CRITICAL CARE CLINICAL NURSE SPECIALIST Work Phone: Start: 10-11-2015 End: 10-11-2015 Follow Up Appt 6 months Margarita Brown Start: 10-11-2015 End: 10-11-2015 OZZIE Whelan MD Start: 10-11-2015 End: 10-11-2015 Follow Up Appt 6 months Margarita Brown Start: 10-11-2015 End: 10-11-2015 OZZIE Whelan MD Start: 03-28-2015 End: 03-29-2015 *Hepatic Function Panel Fatmata chicas PA-C Work Phone: Start: 03-28-2015 End: 03-28-2015 VETERINARY MILK SPECIALIST Fatmata Price PA-C Work Phone: Start: 03-28-2015 [...] PA-C Work Phone: Start: 03-28-2015 End: 03-28-2015 VETERINARY MILK SPECIALIST Fatmata Price PA-C Work Phone: Start: 03-28-2015 [...] PA-C Work Phone: Start: 02-16-2014 End: 02-16-2014 VETERINARY MILK SPECIALIST Fatmata Price PA-C Work Phone: Start: 02-16-2014 [...] PA-C Work Phone: Start: 02-16-2014 End: 02-16-2014 VETERINARY MILK SPECIALIST Fatmata Price PA-C Work Phone: Start: 02-16-2014 [...] PA-C Work Phone: Start: 02-07-2013 End: 02-07-2013 VETERINARY MILK SPECIALIST Fatmata Price PA-C Work Phone: Start: 02-07-2013 End: 02-07-2013 Follow Up Appt 6 months Fatmata chicas PA-C Work Phone: Start: 02-07-2013 End: 02-07-2013 VETERINARY MILK SPECIALIST Fatmata Price PA-C Work Phone: Start: 02-07-2013 End: 02-07-2013 Follow Up Appt 6 months Fatmata chcias PA-C Work Phone: Start: 02-03-2013 End: 02-07-2013 [...] months Margarita Brown Start: 06-04-2012 End: 06-04-2012 OZIZE Whelan MD Start: 06-04-2012 End: 06-04-2012 Follow [...] Author Start: 10-28-2025 DIABETES SCREEN DIABETES SCREEN [facility] Start: 12-05-2022 Influenza vaccination INFLUENZA (#1) [facility] Start: 04-06-2022 DEPRESSION ASSESSMENT DEPRESSION ASSESSMENT [facility] Start: 03-23-2022 LIPID SCREEN LIPID SCREEN [facility] Start: 03-03-2021 COVID-19 VACCINE (4 - Mixed Product series) COVID-19 VACCINE (4 - Mixed Product series) [facility] Start: 12-27-2020 Creatinine measurement Creatinine monitoring [place], [place] Start: 12-27-2020 Potassium monitoring Potassium monitoring [place], [place] Start: 01-19-2020 End: 01-19-2020 Office Visit 01/19/2020 Office Visit Gynecologic Oncology Nataliya Payton PA [address] [place] [id number] [facility] [place] HUMAN RESOURCES ASSISTANT Oncology Start: 01-03-2020 End: 01-03-2020 Appointment 01/03/2020 Appointment General Surgery Isaac Mcneil MD [address] [place] [address] [facility] General Surgery Start: 12-06-2019 Influenza vaccination Flu vaccine (#1) [place] Start: 03-09-2019 DTaP/Tdap/Td vaccine (2 - Td) DTaP/Tdap/Td vaccine (2 - Td) [place] Start: 05-26-2017 End: 05-26-2017 Appointment Appointment [facility] Work Phone: Start: 03-27-2017 End: 03-27-2017 Appointment Appointment [facility] Work Phone: Start: 03-23-2017 End: 09-24-2016 *Hepatic Function Panel *Hepatic Function Panel [facility] Work Phone: Start: 03-23-2017 End: 09-24-2016 Lipid panel [AGGREGATE] *Lipid Profile CC PCP [facility] Work Phone: Start: 03-23-2017 End: 03-25-2017 *Hepatic Function Panel *Hepatic Function Panel [facility] Work Phone: Start: 03-23-2017 End: 03-25-2017 Lipid panel [AGGREGATE] *Lipid Profile CC PCP [facility] Work Phone: Start: 11-25-2016 End: 11-25-2016 DMB DMB [facility] Work Phone: Start: 11-25-2016 End: 11-25-2016 Follow Up Appt 6 months Follow Up Appt 6 months [facility] Work Phone: Start: 11-25-2016 End: 11-25-2016 Appointment Appointment [facility] Work Phone: Start: 11-25-2016 End: 11-25-2016 Appointment Appointment [facility] Work Phone: Start: 11-25-2016 End: 11-25-2016 DMB DMB [facility] Work Phone: Start: 11-25-2016 End: 11-25-2016 Follow Up Appt 6 months Follow Up Appt 6 months [facility] Work Phone: Start: 09-26-2016 End: 09-26-2016 Appointment Appointment [facility] Work Phone: Start: 09-26-2016 End: 09-26-2016 Follow Up Appt 6 months Follow Up Appt 6 months [facility] Work Phone: Start: 09-26-2016 End: 09-26-2016 MMM MMM [facility] Work Phone: Start: 09-26-2016 End: 09-26-2016 Follow Up Appt 6 months Follow Up Appt 6 months [facility] Work Phone: Start: 09-26-2016 End: 09-26-2016 MMM MMM [facility] Work Phone: Start: 09-18-2016 End: 09-24-2016 *BMP *BMP [facility] Work Phone: Start: 09-18-2016 End: 09-24-2016 *Hepatic Function Panel *Hepatic Function Panel [facility] Work Phone: Start: 09-18-2016 End: 09-24-2016 Lipid panel [AGGREGATE] *Lipid Profile CC PCP [facility] Work Phone: Start: 09-18-2016 End: 09-18-2016 Appointment Appointment [facility] Work Phone: Start: 09-18-2016 End: 09-24-2016 *BMP *BMP [facility] Work Phone: Start: 09-18-2016 End: 09-24-2016 *Hepatic Function Panel *Hepatic Function Panel [facility] Work Phone: Start: 09-18-2016 End: 09-24-2016 Lipid panel [AGGREGATE] *Lipid Profile CC PCP [facility] Work Phone: Start: 07-16-2016 End: 07-16-2016 *CBC with Differential *CBC with Differential [facility] Work Phone: Start: 07-16-2016 End: 07-16-2016 C reactive protein (hsCRP) *CRP - C-Reative Protein [facility] Work Phone: Start: 07-16-2016 End: 07-16-2016 Erythrocyte sedimentation rate *Sedimentation Rate (ESR) [facility] Work Phone: Start: 07-16-2016 End: 07-16-2016 *CBC with Differential *CBC with Differential [facility] Work Phone: Start: 07-16-2016 End: 07-16-2016 C reactive protein (hsCRP) *CRP - C-Reative Protein [facility] Work Phone: Start: 07-16-2016 End: 07-16-2016 Erythrocyte sedimentation rate *Sedimentation Rate (ESR) [facility] Work Phone: Start: 07-07-2016 End: 07-07-2016 Bacteria culture *CUB - Culture, Blood [facility] Work Phone: Start: 07-07-2016 End: 07-07-2016 Bacteria culture *CUB - Culture, Blood [facility] Work Phone: Start: 06-25-2016 End: 06-30-2016 Bacteria culture *CUB - Culture, Blood [facility] Work Phone: Start: 06-25-2016 End: 06-30-2016 Bacteria culture *CUB - Culture, Blood [facility] Work Phone: Start: 06-18-2016 End: 09-15-2016 Cardiac Rehab Cardiac Rehab [address] [place], [address] [facility] Work Phone: Start: 06-18-2016 End: 06-18-2016 VETERINARY MILK SPECIALIST VETERINARY MILK SPECIALIST [facility] Work Phone: Start: 06-18-2016 End: 06-18-2016 Ecg routine ecg w/least 12 lds w/i&r EKG (In office) [facility] Work Phone: Start: 06-18-2016 End: 06-18-2016 Follow Up Appt 3 months Follow Up Appt 3 months [facility] Work Phone: Start: 06-18-2016 End: 09-15-2016 Cardiac Rehab Card[facility] [address] [place], [address] [facility] Work Phone: Start: 06-18-2016 End: 06-18-2016 VETERINARY MILK SPECIALIST VETERINARY MILK SPECIALIST [facility] Work Phone: Start: 06-18-2016 End: 06-18-2016 Electrocardiogram, complete EKG (In office) [facility] Work Phone: Start: 06-18-2016 End: 06-18-2016 Follow Up Appt 3 months Follow Up Appt 3 months [facility] Work Phone: Start: 04-25-2016 End: 06-30-2016 Bacteria culture *CUB - Culture, Blood [facility] Work Phone: Start: 04-25-2016 End: 06-30-2016 Bacteria culture *CUB - Culture, Blood [facility] Work Phone: Start: 04-16-2016 End: 04-16-2016 *CBC with Differential *CBC with Differential [facility] Work Phone: Start: 04-16-2016 End: 04-16-2016 C reactive protein (hsCRP) *CRP - C-Reative Protein [facility] Work Phone: Start: 04-16-2016 End: 04-16-2016 Erythrocyte sedimentation rate *Sedimentation Rate (ESR) [facility] Work Phone: Start: 04-16-2016 End: 04-16-2016 *CBC with Differential *CBC with Differential [facility] Work Phone: Start: 04-16-2016 End: 04-16-2016 C reactive protein (hsCRP) *CRP - C-Reative Protein [facility] Work Phone: Start: 04-16-2016 End: 04-16-2016 Erythrocyte sedimentation rate *Sedimentation Rate (ESR) [facility] Work Phone: Start: 04-09-2016 End: 04-09-2016 *CBC with Differential *CBC with Differential [facility] Work Phone: Start: 04-09-2016 [...] 04-09-2016 *CBC with Differential *CBC with Differential [facility] Work Phone: Start: 04-09-2016 End: 04-09-2016 Bacteria culture *CUB - Culture, Blood [facility] Work Phone: Start: 04-09-2016 End: 04-09-2016 Bacterica wound culture *Culture and Sensitivity, wound [facility] Work Phone: Start: 04-09-2016 End: 04-09-2016 C reactive protein (hsCRP) *CRP - C-Reative Protein [facility] Work Phone: Start: 04-09-2016 End: 04-09-2016 Erythrocyte sedimentation rate *Sedimentation Rate (ESR) [facility] Work Phone: Start: 11-28-2015 End: 11-28-2015 [facility] Work Phone: Start: 11-28-2015 End: 11-28-2015 Follow Up Appt 1 year Follow Up Appt 1 year [facility] Work Phone: Start: 11-28-2015 End: 11-28-2015 [facility] Work Phone: Start: 11-28-2015 End: 11-28-2015 Follow Up Appt 1 year Follow Up Appt 1 year [facility] Work Phone: Start: 10-22-2015 End: 10-22-2015 Chest x-ray X-Ray, Chest, PA & Lateral [facility] Work Phone: Start: 10-22-2015 End: 10-22-2015 Fibrin D-dimer FEU *DDIMQ - Fibrin Degrd Ultrsens Qual/Semiquan [facility] Work Phone: Start: 10-22-2015 End: 10-22-2015 Follow Up Appt 1 month Follow Up Appt 1 month [facility] Work Phone: Start: 10-22-2015 End: 10-22-2015 Chest x-ray X-Ray, Chest, PA & Lateral [facility] Work Phone: Start: 10-22-2015 End: [...] Phone: Start: 10-11-2015 End: 10-11-2015 MMM MMM [facility] Work Phone: Start: 10-11-2015 End: 10-11-2015 Follow Up Appt 6 months Follow Up Appt 6 months [facility] Work Phone: Start: 10-11-2015 End: 10-11-2015 MMM MMM [facility] Work Phone: Start: 09-28-2015 End: 03-29-2015 *Hepatic Function Panel *Hepatic Function Panel [facility] Work Phone: Start: 09-28-2015 End: 03-29-2015 Lipid panel [AGGREGATE] *Lipid Profile CC PCP [facility] Work Phone: Start: 03-28-2015 End: 03-29-2015 *Hepatic Function Panel *Hepatic Function Panel [facility] Work Phone: Start: 03-28-2015 End: 03-28-2015 VETERINARY MILK SPECIALIST VETERINARY MILK SPECIALIST [facility] Work Phone: Start: 03-28-2015 End: 03-28-2015 Ecg routine ecg w/least 12 lds w/i&r EKG (In office) [facility] Work Phone: Start: 03-28-2015 End: 03-28-2015 Follow Up Appt 6 months Follow Up Appt 6 months [facility] Work Phone: Start: 03-28-2015 End: 03-29-2015 Lipid panel [AGGREGATE] *Lipid Profile CC PCP [facility] Work Phone: Start: 03-28-2015 End: 03-29-2015 *Hepatic Function Panel *Hepatic Function Panel [facility] Work Phone: Start: 03-28-2015 End: 03-28-2015 VETERINARY MILK SPECIALIST VETERINARY MILK SPECIALIST [facility] Work Phone: Start: 03-28-2015 End: 03-28-2015 Electrocardiogram, complete EKG (In office) [facility] Work Phone: Start: 03-28-2015 End: 03-28-2015 Follow Up Appt 6 months Follow Up Appt 6 months [facility] Work Phone: Start: 03-28-2015 End: 03-29-2015 Lipid panel [AGGREGATE] *Lipid Profile CC PCP [facility] Work Phone: Start: 01-02-2015 End: 03-28-2015 *Hepatic Function Panel *Hepatic Function Panel [facility] Work Phone: Start: 01-02-2015 End: 03-28-2015 Lipid panel [AGGREGATE] *Lipid Profile CC PCP [facility] Work Phone: Start: 01-02-2015 End: 03-28-2015 *Hepatic Function Panel *Hepatic Function Panel [facility] Work Phone: Start: 01-02-2015 End: 03-28-2015 Lipid panel [AGGREGATE] *Lipid Profile CC PCP [facility] Work Phone: Start: 09-29-2014 End: 09-29-2014 Follow Up Appt 6 months Follow Up Appt 6 months [facility] Work Phone: Start: 09-29-2014 End: 09-29-2014 MMM MMM [facility] Work Phone: Start: 09-29-2014 End: 09-29-2014 Follow Up Appt 6 months Follow Up Appt 6 months [facility] Work Phone: Start: 09-29-2014 End: 09-29-2014 MMM MMM [facility] Work Phone: Start: 09-28-2014 End: 09-28-2014 *Hepatic Function Panel *Hepatic Function Panel [facility] Work Phone: Start: 09-28-2014 End: 09-28-2014 Lipid panel [AGGREGATE] *Lipid Profile CC PCP [facility] Work Phone: Start: 09-28-2014 End: 09-28-2014 *Hepatic Function Panel *Hepatic Function Panel [facility] Work Phone: Start: 09-28-2014 End: 09-28-2014 Lipid panel [AGGREGATE] *Lipid Profile CC PCP [facility] Work Phone: Start: 02-16-2014 End: 04-20-2014 *Hepatic Function Panel *Hepatic Function Panel [facility] Work Phone: Start: 02-16-2014 End: 02-16-2014 VETERINARY MILK SPECIALIST VETERINARY MILK SPECIALIST [facility] Work Phone: Start: 02-16-2014 End: 02-16-2014 Ecg routine ecg w/least 12 lds w/i&r EKG (In office) [facility] Work Phone: Start: 02-16-2014 End: 02-16-2014 Follow Up Appt 6 months Follow Up Appt 6 months [facility] Work Phone: Start: 02-16-2014 End: 04-20-2014 Lipid panel [AGGREGATE] *Lipid Profile CC PCP [facility] Work Phone: Start: 02-16-2014 End: 04-20-2014 *Hepatic Function Panel *Hepatic Function Panel [facility] Work Phone: Start: 02-16-2014 End: 02-16-2014 VETERINARY MILK SPECIALIST VETERINARY MILK SPECIALIST [facility] Work Phone: Start: 02-16-2014 End: 02-16-2014 Electrocardiogram, complete EKG (In office) [facility] Work Phone: Start: 02-16-2014 End: 02-16-2014 Follow Up Appt 6 months Follow Up Appt 6 months [facility] Work Phone: Start: 02-16-2014 End: 04-20-2014 Lipid panel [AGGREGATE] *Lipid Profile CC PCP [facility] Work Phone: Start: 09-03-2013 End: 08-17-2013 *Hepatic Function Panel *Hepatic Function Panel [facility] Work Phone: Start: 09-03-2013 End: 08-17-2013 Lipid panel [AGGREGATE] *Lipid Profile CC PCP [facility] Work Phone: Start: 09-03-2013 End: 08-17-2013 *Hepatic Function Panel *Hepatic Function Panel [facility] Work Phone: Start: 09-03-2013 End: 08-17-2013 Lipid panel [AGGREGATE] *Lipid Profile CC PCP [facility] Work Phone: Start: 08-18-2013 End: 02-06-2014 Follow Up Appt 6 months Follow Up Appt 6 months [facility] Work Phone: Start: 08-18-2013 End: 02-06-2014 MMM MMM [facility] Work Phone: Start: 08-18-2013 End: 02-06-2014 Follow Up Appt 6 months Follow Up Appt 6 months [facility] Work Phone: Start: 08-18-2013 End: 02-06-2014 MMM MMM [facility] Work Phone: Start: 02-07-2013 End: 02-07-2013 VETERINARY MILK SPECIALIST VETERINARY MILK SPECIALIST [facility] Work Phone: Start: 02-07-2013 End: 02-07-2013 Follow Up Appt 6 months Follow Up Appt 6 months [facility] Work Phone: Start: 02-07-2013 End: 02-07-2013 VETERINARY MILK SPECIALIST VETERINARY MILK SPECIALIST [facility] Work Phone: Start: 02-07-2013 End: 02-07-2013 Follow Up Appt 6 months Follow Up Appt 6 months [facility] Work Phone: Start: 02-03-2013 End: 02-07-2013 *Hepatic Function Panel *Hepatic Function Panel [facility] Work Phone: Start: 02-03-2013 End: 02-07-2013 Lipid panel [AGGREGATE] *Lipid Profile CC PCP [facility] Work Phone: Start: 02-03-2013 End: 02-07-2013 *Hepatic Function Panel *Hepatic Function Panel [facility] Work Phone: Start: 02-03-2013 End: 02-07-2013 Lipid panel [AGGREGATE] *Lipid Profile CC PCP [facility] Work Phone: Start: 12-08-2012 End: 12-15-2012 *Hepatic Function Panel *Hepatic Function Panel [facility] Work Phone: Start: 12-08-2012 End: 12-08-2012 Follow Up Appt 2 months Follow Up Appt 2 months [facility] Work Phone: Start: 12-08-2012 End: 12-15-2012 Lipid panel [AGGREGATE] *Lipid Profile CC PCP [facility] Work Phone: Start: 12-08-2012 End: 12-08-2012 MMM MMM [facility] Work Phone: Start: 12-08-2012 End: 12-15-2012 *Hepatic Function Panel *Hepatic Function Panel [facility] Work Phone: Start: 12-08-2012 End: 12-08-2012 Follow Up Appt 2 months Follow Up Appt 2 months [facility] Work Phone: Start: 12-08-2012 End: 12-15-2012 Lipid panel [AGGREGATE] *Lipid Profile CC PCP [facility] Work Phone: Start: 12-08-2012 End: 12-08-2012 MMM MMM [facility] Work Phone: Start: 06-04-2012 End: 06-04-2012 Follow Up Appt 6 months Follow Up Appt 6 months [facility] Work Phone: Start: 06-04-2012 End: 06-04-2012 MMM MM[facility] Work Phone: Start: 06-04-2012 End: 06-04-2012 Follow Up Appt 6 months Follow Up Appt 6 months [facility] Work Phone: Start: 06-04-2012 End: 06-04-2012 [facility]MM [facility] Work Phone: Start: 2012 Screening for malignant neoplasm of breast Breast cancer screen [place], [place] Start: 2012 Screening for malignant neoplasm of colon Colon cancer screen colonoscopy [place], [place] Start: 2012 Shingles Vaccine (1 of 2) Shingles Vaccine (1 of 2) [place] Start: 2012 SHINGRIX VACCINE (1 of 2) SHINGRIX VACCINE (1 of 2) [facility] Start: 04-19-2012 End: 04-19-2012 Left Heart Cath Left Heart Cath [facility] Work Phone: Start: 04-19-2012 End: 04-19-2012 Left Heart Cath Left Heart Cath [facility] Work Phone: Start: 04-02-2011 End: 06-04-2012 *Hepatic Function Panel *Hepatic Function Panel [facility] [employer] Work Phone: Start: 04-02-2011 End: 04-02-2011 Follow Up Appt 6 months Follow Up Appt 6 months [facility] Work Phone: Start: 04-02-2011 End: 06-04-2012 Lipid panel [AGGREGATE] *Lipid Profile [facility] Work Phone: Start: 04-02-2011 End: 06-04-2012 *Hepatic Function Panel *Hepatic Function Panel [facility] [employer] Work Phone: Start: 04-02-2011 End: 04-02-2011 Follow Up Appt 6 months Follow Up Appt 6 months [facility] [employer] Work Phone: Start: 04-02-2011 End: 06-04-2012 Lipid panel [AGGREGATE] *Lipid Profile [facility] Work Phone: Start: 2007 COLOGUARD (FIT-DNA) COLOGUARD (FIT-DNA) [facility] Start: 2007 Colonoscopy COLONOSCOPY [facility] Start: 2007 COLORECTAL CANCER SCREENING COLORECTAL CANCER SCREENING [facility] Start: [address] COLONOGRAPHY [facility] Start: 2007 FECAL OCCULT BLOOD FECAL OCCULT BLOOD [facility] Start: 2007 SIGMOIDOSCOPY SIGMOIDOSCOPY [facility] Start: 2002 [facility] Start: 2002 Mammography MAMMOGRAM [facility] Start: 1992 HPV TESTING HPV TESTING [facility] Start: 1983 PAP TESTING PAP TESTING [facility] Start: 1983 Screening for malignant neoplasm of cervix Cervical cancer screen [facility] Start: 1981 Urine microalbumin profile DTAP,TDAP,TD (1 - Tdap) [facility] Start: 1980 HEPATITIS C SCREENING HEPATITIS C SCREENING [facility] Start: 1980 HIV SCREENING HIV SCREENING [facility] Start: 1977 HIV screening HIV screen [place], [place] Start: 1972 Lipid panel Lipid screen [place] Start: 1962 Creatinine measurement Creatinine monitoring [place], [place] Start: 1962 Hepatitis C screening Hepatitis C screen [place], [place] Start: 1962 Potassium monitoring Potassium monitoring [place], [place] EKG 12 Lead EKG 12 Lead ECG Routine 12/28/2019 3:08 PM EDT [place] [place] Initiate Oxygen Therapy Protocol Respiratory Care Routine Daily until discontinued starting 01/03/2020 [place], [place] Immunizations Immunization Date Immunization Notes Care Provider Fa tapan 04-25-2016 pneumococcal vaccine , unspecified formulation; Translations: [PNEUMOCOCCAL VAC POLYVALENT] Lindsay Rocha RN [employer] Work Phone: Payers Date Payer Category Payer Medicaid [employer] [id number] 2022-Present [phone] [address] [place] [address] Medicaid [id number] 2022 Medicaid [id number] 2019 Unknown [id number] 2017 Private Health Insurance [id number] Social History Date Type Detail Facility Start: 01-03-2020 End: 12-04-2022 Tobacco smoking status [facility] Never smoker [facility] Start: 01-03-2020 End: 12-04-2022 Tobacco use and exposure Never used [place], [place] Start: 12-28-2019 End: 01-03-2020 Alcohol intake Current drinker of alcohol (finding) [place], [place] Start: 12-28-2019 Alcohol Comment rarely [facility] [place] [place] Start: 1960 Sex Assigned At Not on file M [place] Exposure to SARS-CoV -2 (event) Not sure [place] Start: 12-04-2022 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 (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) [facility] Start: 03-14-2020 End: 12-04-2022 History of Social function [facility] Start: 03-14-2020 End: 12-04-2022 Tobacco use panel [facility] National Score (1-10 0), lower number is lower risk Not on file [facility] Medical Equipment Procedure Code Equipment Code Equipment Original Text Equipment Identifier Dates [place] Thk1.65mm P tfe 4x.5in Cardiovascular Sterile - [id number] Start: 05-13-2016 Note 12-06-2022 Telephone Encounter - Apolonia Hawkins APRN.CRITICAL CARE CLINICAL NURSE SPECIALIST - 12/06/2022 12:51 PM EDT Note Date & Type Note Facility 12-06-2022 Miscellaneous Notes Formattin g of this note might be different from the original. Patient's presents to [facility] care, patient was seen here on 12/04/22 [...] provider copied on this note. Apolonia Hawkins APRN.CRITICAL CARE CLINICAL NURSE SPECIALIST Electronically signed by Apolonia Hawkins APRN.CRITICAL CARE CLINICAL NURSE SPECIALIST at 12/06/2022 12:57 PM EDT documented in this encounter [facility] Note 12-05-2022 Telephone Encounter - Kristen [...] negative COVID test documented in this encounter [facility] Progress note 12-04-2022 Note Date & Type Note Facility 12-04-2022 Note HNO ID: [id number] Author: Mary Guerrier RT(R) Service: ? Author Type: Sas Clinical Programmer Type: Progress Notes Filed: 12/04/2022 5:23 PM [...] RT Edith(R) December 04, 2022 5:04 PM [facility] Progress note 12-04-2022 Note Date & Type Note Facility 12-04-2022 Note HNO ID: [id number] Author: William Urban APRN.CRITICAL CARE CLINICAL NURSE SPECIALIST Service: ? Author Type: Nurse Practitioner Type: [...] MG DAILY August 16, 2019 3:28pm 08-16-2019 [facility] ([id number]) guaiFENesin (MUCINEX) 600 mg 12 hr tablet [...] and S2 norm (more content not included)... [facility] Instructions 12-04-2022 Patient Instructions Note Date & Type Note Facility 12-04-2022 Instructions William Urban APRN.CRITICAL CARE CLINICAL NURSE SPECIALIST - 12/04/2022 5:48 PM EDT ASSESSMENT/PLAN: 1. [...] COVID NAAT, ROUTINE documented in this encounter [facility] History of Present illness Narrative 12-04-2022 [...] MG DAILY August 16, 2019 3:28pm 08-16-2019 [facility] ([id number]) guaiFENesin (MUCINEX) 600 mg 12 hr tablet [...] William MAHER APRN.CNP documented in this encounter [facility] History of Past illness Narrative 2016 Note Date & Type Note Facility documented as of this encounter (statuses as of 12/05/2022) [facility] History of Past illness Narrative 2016 Note Date & Type Note Facility documented as of this encounter (statuses as of 12/05/2022) [facility] History of Past illness Narrative 2016 Note Date & Type Note Facility documented as of this encounter (statuses as of 12/06/2022) [facility] Evaluation note Note Date & Type Note Facility documented in this encounter [facility] Summary Purpose Family History No Family History Records FoundNo Family History Records FoundNo Family History Records Found Advance Directives No Advanced Directives Records FoundLatest Code Status on File Code Status Date Activated Date Inactivated Comments Full Code 01/03/2020 6:28 PM Full Code 01/03/2020 11:56 AM 01/03/2020 6:01 PM Hospital Course Note [facility] Discharge Summary Pa tient Name: Isabella [...] care instructions given to you by your [facility] Oncologist's office at your pre operative visit. Please call the office with questions or concerns and be sure to follow up at your scheduled post operative visit. documented in this encounter* Instructions* Alise Block RN - 12/28/2019 Please bring your [employer] Surgical Information folder on the day of [...] through Care Everywhere. * Laparoscopic Hysterectomy: Post-op (Ivorian) documented in this encounter History of Present [...] capsule 60 mg 60 mg Oral Daily Natailya Hayes MD hydrOXYzine (ATARAX) tablet 5 mg [...] 15 g 15 g Oral PRN Nataliya Hayse MD dextrose 50 % IV solution 12.5 [...] 10%-15% lower than serum/plasma values. (CLIA ID [id number]) Protime 01/03/2020 11.1 9.0 - 12.0 s [...] 10%-15% lower than serum/plasma values. (CLIA ID [id number]) WBC 01/04/2020 12.3* 3.6 - 10.7 10*3/uL [...] 10%-15% lower than serum/plasma values. (CLIA ID [id number]) Assessment/Plan: Isabella R Zuercher 59 y.o. female [...] DATE CREATED AUTHOR AUTHOR'S ORGANIZ ATION 01/16/2020 [facility] DATE CREATED AUTHOR AUTHOR'S ORGANIZ ATION 12/07/2022 [facility] Source Comments (unrecognize d section and content) In the event this informatio n is protected by the Federal Confidentiality of Alcohol and Drug Abuse Patient Records regulations: The Federal rules restrict any use of the information to criminally investigate or prosecute any alcohol or drug abuse patient.[facility] the event this information is protected by the Federal Confidentiality of Alcohol and Drug Abuse Patient Records regulations: The Federal rules restrict any use of the information to criminally investigate or prosecute any alcohol or drug abuse patient.[facility] the event this information is protected by the Federal Confidentiality of Alcohol and Drug Abuse Patient Records regulations: The Federal rules restrict any use of the information to criminally investigate or prosecute any alcohol or drug abuse patient.[facility] Reason for Visit (unrecogniz ed section and content) Reason Comments Results Reason Comments Medication Problem Care Teams (unrecognized sec tion and content) Director Educational Radio Relationship Specialty Start Date End Date Gianluca Luna CNP [address] [place] [address] PCP - General Internal Medicine 07/10/21 Jj [...] ON THE PRIMARY CLINICAL RECORDS. [facility] [email or web address] [facility]. provides no warranty or guarantee of the accuracy or completeness of information in this document.
--- NOTE | 2023-04-15 20:25 | EDS_ITS ---
HPI HPI - GI History of Present Illness Chief Complaint: Abd Pain Informant: patient and spouse/S.O. Abdominal Pain/Flank Pain Onset: Weeks (2) Context: Gradual Onset Timing: Continuous Quality: - ( Grabbing ) Location: LUQ, LLQ and Left Flank Worsened by: Movement Relieved by: Nothing Nausea/Vomiting/Emesis GI Symptom: Negative for Nausea or Vomiting Diarrhea/Melena/Hematochezia GI Symptom: Positive for Diarrhea; Negative for Melena or Hematochezia Associated Symptoms Associated Symptoms: Negative for Dysuria, Frequency or Hematuria Narrative Narrative: Presents with abdominal pain that has been gradually getting worse over the past 2 weeks. Patient states it has been waxing and waning. Patient states it feels like something is grabbing her. Patient states the pain is mainly over the left side of her abdomen. Patient states it is worse with movement. Patient states nothing makes it better. Patient admits to some diarrhea. Patient states she finished a 5-day course of Levaquin for urinary tract infection recently. Patient admits to some sweats but denies any fevers or chills. Patient admits to some shortness of breath because of the pain. Patient denies any nausea or vomiting. Patient denies any melena or hematochezia. Patient denies any dysuria or hematuria. [facility] Medical History Allergic rhinitis Anxiety Asthma Cancer Chronic diastolic (congestive) heart failure Congenital subaortic stenosis of membranous type COVID-19 (05/01/21) CPAP (continuous positive airway pressure) dependence Cutaneous abscess Endometrial cancer Essential (primary) hypertension History of bacterial endocarditis HLD (hyperlipidemia) Hypertension Left bundle branch block Morbid obesity Narcolepsy Nonrheumatic aortic (valve) stenosis with insufficiency Nonrheumatic mitral valve insufficiency Obesity Obstructive sleep apnea On home oxygen therapy Positive GBS test Psoriasis Secondary pulmonary arterial hypertension Streptococcal septicemia Subvalvar aortic stenosis Wears dentures Wears glasses Home Medications multivitamin with folic acid 400 mcg tablet 1 tab PO DAILY SUPPLEMETN 05/30/16 [History Last Taken 07/10/20] metformin 500 mg tablet 250 mg PO DAILY DM 08/16/19 [History Last Taken 07/10/20] melatonin 5 mg capsule 5 mg PO QHS SLEEP 05/21/20 [History Last Taken 07/09/20] omeprazole 40 mg capsule,delayed release 40 mg PO DAILY GERD 05/21/20 [History Last Taken 02/04/21] acetaminophen 500 mg tablet (Tylenol Extra Strength) 1,000 mg PO DAILY 11/08/20 [History Last Taken Unknown] cholecalciferol (vitamin D3) 1,250 mcg (50,000 unit) capsule 1,250 mcg PO QWEEK supplement 11/08/20 [History Last Taken 08/26/21] duloxetine 60 mg capsule,delayed release (Cymbalta) 120 mg PO DAILY 11/08/20 [History Last Taken 09/01/21 10:00] warfarin 5 mg tablet 2.5 mg PO DAILY 11/22/20 [History Last Taken 01/31/21] metoprolol tartrate 25 mg tablet 25 mg PO BID HEART #180 tabs 12/11/20 [Rx Last Taken 02/04/21] diphenhydramine HCl 25 mg capsule (Benadryl) 25 mg PO QHS 01/30/21 [History Last Taken Unknown] benzonatate 200 mg capsule 200 mg PO TID PRN cough #90 caps 08/30/21 [Rx Last Taken Unknown] warfarin 7.5 mg tablet 7.5 mg PO .COMPLEX #90 tabs 11/18/21 [Rx Last Taken Unknown] gabapentin 100 mg capsule 100 mg PO BID 02/04/22 [History Last Taken Unknown] gabapentin 100 mg capsule 300 mg PO QHS 02/04/22 [History Last Taken Unknown] warfarin 5 mg tablet 5 mg PO .COMPLEX #90 tabs 09/24/22 [Rx Last Taken Unknown] pravastatin 40 mg tablet 20 mg (1/2 x 40 mg) PO QHS CHOLESTEROL #45 tabs 10/20 [Rx Last Taken Unknown] clobetasol 0.05 % topical cream 1 applic topical BID PRN 11/05/22 [History Last Taken Unknown] magnesium oxide 500 mg tablet 500 mg PO DAILY 11/05/22 [History Last Taken Un known] albuterol sulfate 90 mcg/actuation aerosol inhaler (Ventolin HFA) 2 puff inhalation Q4H PRN shortness of breath or wheezing #8.5 grams 01/14/23 [Rx Last Taken Unknown] allergy shot IM .weekly 01/14/23 [History Last Taken Unknown] azelastine 137 mcg (0.1 %) nasal spray aerosol 2 spray intranasal BID #30 mL 01/14/23 [Rx Last Taken Unknown] budesonide-formoterol HFA 160 mcg-4.5 mcg/actuation aerosol inhaler (Symbicort) 2 puff inhalation BID #10.2 grams 01/14/23 [Rx Last Taken Unknown] doxycycline hyclate 100 mg tablet 100 mg PO BID #20 tabs 01/14/23 [Rx Last Taken Unknown] fluticasone propionate 50 mcg/actuation nasal spray,suspension (Flonase Allergy Relief) 2 spray intranasal QDAY #1 device 01/14/23 [Rx Last Taken Unknown] guaifenesin 600 mg tablet, extended release 12 hr (Mucinex) 1,200 mg (2 x 600 mg) PO BID #60 tabs 01/14/23 [Rx Last Taken Unknown] ipratropium 0.5 mg-albuterol 3 mg (2.5 mg base)/3 mL nebulization soln 3 ml inhalation Q4H PRN PRN SOB &/OR WHEEZING #180 mL 01/14/23 [Rx Last Taken Unknown] loratadine 10 mg tablet 10 mg PO DAILY ALLERGIES #90 tabs 01/14/23 [Rx Last Taken Unknown] levofloxacin 750 mg tablet 750 mg PO DAILY #7 tabs 01/19/23 [Rx Last Taken Unknown] prednisone 20 mg tablet 60 mg (3 x 20 mg) PO QDAY #15 tabs 01/27/23 [Rx Last Taken Unknown] potassium chloride 20 mEq tablet,extended release(part/cryst) (Klor-Con M) 20 meq PO .COMPLEX this RX is for dose correction #270 tabs 02/02/23 [Rx Last Taken Unknown] torsemide 20 mg tablet 40 mg (2 x 20 mg) PO DAILY FLUID #180 tabs 03/27/23 [Rx Last Taken Unknown] diphenoxylate-atropine 2.5 mg-0.025 mg tablet (Lomotil) 1 tab PO 4X/DAY PRN PRN diarrhea 5 days #20 tabs 04/06/23 [Rx Last Taken Unknown] lorazepam 1 mg tablet (Ativan) 1 mg PO TID PRN Muscle cramps/spasms 5 days #15 tabs 04/06/23 [Rx Last Taken Unknown] ondansetron 4 mg disintegrating tablet 4 mg PO TID PRN nausea and vomiting #21 tabs 04/06/23 [Rx Last Taken Unknown] metoclopramide HCl 10 mg tablet (Reglan) 10 mg PO Q6H PRN nausea and vomiting #14 tabs 04/08/23 [Rx Last Taken Unknown] nitrofurantoin monohydrate/macrocrystals 100 mg capsule (Macrobid) 100 mg PO Q12H 7 days #14 caps 04/08/23 [Rx Last Taken Unknown] levofloxacin 500 mg tablet 500 mg PO DAILY #5 tabs 04/09/23 [Rx Last Taken Unknown] Allergy/AdvReac Type Severity Reaction Status Date / Time clarithromycin [From Biaxin] Allergy Severe SOB, hives Verified 04/15/23 18:47 and swelling cephalexin [Cephalexin] Allergy Rash Verified 04/15/23 18:47 simvastatin Allergy Rash Verified 04/15/23 18:47 sulfamethoxazole Allergy Rash Verified 04/15/23 18:47 trimethoprim Allergy Rash/leg Verified 04/15/23 18:47 swelling bupropion AdvReac Severe worsened Verified 04/15/23 18:47 depression adhesive tape AdvReac Itching Verified 04/15/23 18:47 ciprofloxacin AdvReac Itching Verified 04/15/23 18:47 Macrolide Antibiotics AdvReac Unknown Verified 04/15/23 18:47 Penicillins AdvReac Unknown Verified 04/15/23 18:47 Family History Father CAD (coronary artery disease) Hypertension Mother , age 55 Sudden cardiac Hypertension Abdominal aortic aneurysm rupture Brother Hypertension Sister Hypertension Surgical History H/O bilateral salpingo-oophorectomy (01/2020) History of mechanical aortic valve replacement (05/13/16) History of mitral valve replacement with mechanical valve (05/13/16) History of robot-assisted laparoscopic hysterectomy (01/2020) History of tubal ligation HX venous access device placed Resection of subaortic membrane (2002) Social History household members: spouse number of children: 4 current occupational status: unemployed history of recent travel: No sexually active: Yes Smoking Status: Never smoker alcohol intake: never substance use type: does not use diet: low carbohydrate caffeine: No what type of physical activity do you participate in: walking seatbelt use: always do you feel safe at home: Yes additional social history: - Dylan DAIGLE ED Constitutional Constitutional ED: Reports sweats; Denies chills or fever(s) Eyes Eyes: Denies blurry vision or change in vision ENT ENT ED: Denies rhinorrhea or sore throat Cardiovascular Cardiovascular: Denies chest pain or palpitations Respiratory/Chest Respiratory/Chest: Reports dyspnea; Denies cough Gastrointestinal Gastrointestinal: Reports abdominal pain and melena; Denies nausea or vomiting Genitourinary Genitourinary ED: Denies dysuria or hematuria Musculoskeletal Musculoskeletal: Reports back pain; Denies neck pain Integumentary Denies abscess or rash Neurologic Neurologic: Denies headache(s) or weakness Allergic/Immunologic Allergic/Immunologic ED: Denies mouth swelling or urticaria EXAM Physical Exam Const Vital Signs: 04/15/23 18:48 04/15/23 20:42 04/15/23 22:24 Temperature 99 F Temperature Source Temporal Pulse Rate 98 85 80 Respiratory Rate 20 H 16 12 Blood Pressure 135/62 H 117/64 157/72 H Blood Pressure Mean 86 81 100 Pulse Ox 97 98 94 Oxygen Delivery Method Room Air Room Air Room Air Positive well nourished, well developed and obese General Appearance ED: well developed and NAD Nutritional Appearance: obese HEENT Reports moist mucous membranes Neck supple and no JVD Resp normal respiratory effort and clear to auscultation bilaterally Cardio regular rate and regular rhythm GI non-distended Palpation: soft and tender LLQ, RLQ, LUQ, periumbilical and suprapubic; Negative for guarding or rebound tenderness present Psych mental status grossly normal and thought process normal MDM MDM MDM Narrative Medical decision making narrative: Differential diagnosis includes bowel obstruction, perforation, ureteral calculus, diverticulitis, pyelonephritis, gastroenteritis, dehydration, and colitis. CBC will be obtained to assess for leukocytosis and anemia. Comprehensive metabolic profile will be obtained to assess for hepatic function, renal function, and electrolyte abnormality. Urinalysis will be obtained to assess for urinary tract infection. CT scan of the abdomen pelvis will be obtained to assess for ureteral calculus, bowel obstruction, and perforation. Lab Data Attestation: I reviewed the patient's lab results. Lab results narrative: CBC was reviewed. There is a mild anemia with a hemoglobin of 11.4 and hematocrit 36.1. Platelets were normal. Comprehensive metabolic profile was reviewed and was within normal limits. Urinalysis was reviewed. There is no evidence of urinary tract infection or hematuria. Labs: Laboratory Results - last 24 hr 04/15/23 04/15/23 19:05 21:00 WBC 6.2 RBC 3.81 L Hgb 11.4 L Hct 36.1 L MCV 94.8 MCH 29.9 MCHC 31.6 L RDW Std Deviation 55.6 H RDW Coeff of Ham 15.9 H Plt Count 309 MPV 9.8 Immature Gran % (Auto) 1.300 H Neut % (Auto) 79.7 H Lymph % (Auto) 13.0 L [place] % (Auto) 4.0 Eos % (Auto) 1.4 Baso % (Auto) 0.6 Absolute Neuts (auto) 4.9 Absolute Lymphs (auto) 0.81 L Nucleated RBC % 0 Sodium 137 Potassium 3.8 Chloride 102 Carbon Dioxide 29.0 Anion Gap 6 BUN 14 Creatinine 0.82 Estim Creat Clear Calc 95.92 Est GFR (MDRD) Af Amer 92 Est GFR (MDRD) Non-Af 76 BUN/Creatinine Ratio 17.1 Glucose 205 H Calcium 8.2 L Total Bilirubin 0.90 AST 29 ALT 35 Alkaline Phosphatase 100 Total Protein 8.3 H Albumin 2.7 L Globulin 5.6 H Albumin/Globulin Ratio 0.5 L Urine Color Yellow Urine Clarity Clear Urine pH 5.0 Ur Specific [place] 1.020 Urine Protein 30 H Urine Glucose (UA) 50 H Urine Ketones Negative Urine Occult Blood 10 H Urine Nitrite Negative Urine Bilirubin Negative Urine Urobilinogen Normal Ur Leukocyte Esterase 25 H Urine RBC 0 SEEN Urine WBC 0 SEEN Ur Squamous Epith Cells 0-5 SEEN Urine Bacteria 0 SEEN Urine Mucus 0 SEEN Radiography Diagnostic Testing: Clinical Impression(s) from Imaging Studies Abdomen/Pelvis CT 04/15/23 20:49 IMPRESSION: 1. No evidence of bowel obstruction. No bowel perforation or acute inflammatory changes elsewhere in the bowel. 2. Right pleural effusion with dependent airspace disease which is likely atelectasis rather than pneumonia and mild diffuse interstitial prominence perhaps indicating mild edema. 3. Subtle hepatic capsular lobulations perhaps indicating cirrhosis. 4. Colonic diverticulosis. No overwhelming evidence of acute diverticulitis. Electronically Signed: Antonio Bonilla, at 23:36 EST , CT scan of the abdomen pelvis was obtained. There is no free air or free fluid. There is no evidence of obstruction or perforation. There is diverticulosis but no evidence of diverticulitis. There is no acute abnormality noted. This was interpreted by the radiologist was also independently reviewed by myself. Treatment and Re-Evaluation :: Patient was given IV fluids, morphine, and Zofran. Patient was feeling better on reevaluation. Patient was advised of her findings. Patient was instructed to follow-up with her primary care physician in 5 to 7 days. Patient requested having her INR rechecked. This was ordered. Patient will be discharged and will have her primary care physician follow-up with the results. Patient understood and was agreeable with the plan. All questions were answered. Discharge Plan Triage Chief Complaint: Abd Pain ED Provider: Pepe Streeter Dx/Rx/DC Orders Clinical Impression: Abdominal pain, Essential (primary) hypertension, Obesity Instructions: ED Abdominal Pain Unkn Cause Fem Prescriptions: No Action duloxetine [Cymbalta] 60 mg capsule,delayed release(DR/EC) 120 mg PO DAILY metformin 500 mg tablet 250 mg PO DAILY metoprolol tartrate 25 mg tablet 25 mg PO BID Qty: 180 3RF acetaminophen [Tylenol Extra Strength] 500 mg tablet 1,000 mg PO DAILY benzonatate 200 mg capsule 200 mg PO TID PRN (Reason: cough) Qty: 90 0RF gabapentin 100 mg capsule 100 mg PO BID gabapentin 100 mg capsule 300 mg PO QHS albuterol sulfate [Ventolin HFA] 90 mcg/actuation HFA aerosol inhaler 2 puff INHALATION Q4H PRN (Reason: shortness of breath or wheezing) Qty: 8.5 6RF budesonide-formoterol [Symbicort] 160-4.5 mcg/actuation HFA aerosol inhaler 2 puff inhalation BID Qty: 10.2 6RF fluticasone propionate [Flonase Allergy Relief] 50 mcg/actuation spray,suspension 2 spray INTRANASAL QDAY Qty: 1 3RF Rx Instructions: administer into each nostril ipratropium-albuterol 0.5 mg-3 mg(2.5 mg base)/3 mL solution for nebulization 3 ml inhalation Q4H PRN PRN (Reason: SOB &/OR WHEEZING) Qty: 180 6RF loratadine 10 mg tablet 10 mg PO DAILY Qty: 90 3RF azelastine 137 mcg (0.1 %) aerosol,spray 2 spray intranasal BID Qty: 30 3RF Rx Instructions: administer into each nostril allergy shot IM .weekly Patient Comments: At [place] [facility] doxycycline hyclate 100 mg tablet 100 mg PO BID Qty: 20 0RF clobetasol 0.05 % cream 1 applic topical BID PRN magnesium oxide 500 mg tablet 500 mg PO DAILY multivitamin with folic acid 1 TABLET tablet 1 tab PO DAILY omeprazole 40 MG capsule,delayed release(DR/EC) 40 mg PO DAILY melatonin 5 MG capsule 5 mg PO QHS cholecalciferol (vitamin D3) 1,250 mcg (50,000 unit) capsule 1,250 mcg PO QWEEK Patient Comments: TAKE 1 CAPSULE BY MOUTH ONCE A WEEK diphenhydramine HCl [Benadryl] 25 MG capsule 25 mg PO QHS ondansetron 4 mg tablet,disintegrating 4 mg PO TID PRN (Reason: nausea and vomiting) Qty: 21 0RF diphenoxylate-atropine [Lomotil] 2.5-0.025 mg tablet 1 tab PO 4X/DAY PRN PRN (Reason: diarrhea) 5 Days Qty: 20 0RF lorazepam [Ativan] 1 mg tablet 1 mg PO TID PRN (Reason: Muscle cramps/spasms) 5 Days Qty: 15 0RF metoclopramide HCl [Reglan] 10 mg tablet 10 mg PO Q6H PRN (Reason: nausea and vomiting) Qty: 14 0RF nitrofurantoin monohyd/m-cryst [Macrobid] 100 mg capsule 100 mg PO Q12H 7 Days Qty: 14 0RF Rx Instructions: must administer with a meal/food levofloxacin 500 mg tablet 500 mg PO DAILY Qty: 5 0RF warfarin 5 mg tablet 2.5 mg PO DAILY Protocol: Dose Management Condition: Thursday Dose/Route: 7.5 mg Instruction: 1 x 7.5 mg tablet Condition: Thursday Dose/Route: 5 mg Instruction: 1 x 5 mg tablet Condition: Thursday Dose/Route: 5 mg Instruction: 1 x 5 mg tablet Condition: Thursday Dose/Route: 5 mg Instruction: 1 x 5 mg tablet Condition: Dose/Route: 5 mg Instruction: 1 x 5 mg tablet Condition: Thursday Dose/Route: 5 mg Instruction: 1 x 5 mg tablet Condition: Thursday Dose/Route: 5 mg Instruction: 1 x 5 mg tablet Protocol Text: Adjustment Start Date: Thursday02/04/23 INR Value: 3.5 INR Date: 02/03/23 Recheck Date: 02/18/23 Rx Instructions: THURSDAY AND THURSDAY AND THURSDAY warfarin 7.5 mg tablet 7.5 mg PO .COMPLEX Qty: 90 3RF Protocol: Dose Management Condition: Thursday Dose/Route: 7.5 mg Instruction: 1 x 7.5 mg tablet Condition: Thursday Dose/Route: 5 mg Instruction: 1 x 5 mg tablet Condition: Thursday Dose/Route: 5 mg Instruction: 1 x 5 mg tablet Condition: Thursday Dose/Route: 5 mg Instruction: 1 x 5 mg tablet Condition: Dose/Route: 5 mg Instruction: 1 x 5 mg tablet Condition: Thursday Dose/Route: 5 mg Instruction: 1 x 5 mg tablet Condition: Thursday Dose/Route: 5 mg Instruction: 1 x 5 mg tablet Protocol Text: Adjustment Start Date: Thursday02/04/23 INR Value: 3.5 INR Date: 02/03/23 Recheck Date: 02/18/23 Rx Instructions: 7.5 mg orally Thursday through Thursday (takes a 2.5 mg tablet on Thursday and Thursday); or as directed for dose changes warfarin 5 mg tablet 5 mg PO .COMPLEX Qty: 90 4RF Protocol: Dose Management Condition: Thursday Dose/Route: 7.5 mg Instruction: 1 x 7.5 mg tablet Condition: Thursday Dose/Route: 5 mg Instruction: 1 x 5 mg tablet Condition: Thursday Dose/Route: 5 mg Instruction: 1 x 5 mg tablet Condition: Thursday Dose/Route: 5 mg Instruction: 1 x 5 mg tablet Condition: Dose/Route: 5 mg Instruction: 1 x 5 mg tablet Condition: Thursday Dose/Route: 5 mg Instruction: 1 x 5 mg tablet Condition: Thursday Dose/Route: 5 mg Instruction: 1 x 5 mg tablet Protocol Text: Adjustment Start Date: Thursday02/04/23 INR Value: 3.5 INR Date: 02/03/23 Recheck Date: 02/18/23 Rx Instructions: 5 mg PO take 1 tab by mouth daily or as directed; pravastatin 40 mg tablet 20 mg PO QHS Qty: 45 3RF guaifenesin [Mucinex] 600 mg tablet extended release 12hr 1,200 mg PO BID Qty: 60 11RF levofloxacin 750 mg tablet 750 mg PO DAILY Qty: 7 0RF prednisone 20 mg tablet 60 mg PO QDAY Qty: 15 0RF Rx Instructions: administer with food or milk potassium chloride [Klor-Con M20] 20 mEq tablet,ER particles/crystals 20 meq PO .COMPLEX Qty: 270 3RF Rx Instructions: 20 mEq orally 2 tablets in the morning and 1 tablet at suppertime; torsemide 20 mg tablet 40 mg PO DAILY Qty: 180 3RF Primary Care Provider: [facility] Vidhi Yang Referrals: [facility] Vidhi Yang [Primary Care Provider] - 3-5 Days Disposition Disposition: Home, Self Care
[2023-04-15 20:42] VITALS: BP 117/64; PULSE 85; RESP 16; O2SAT 98
--- NOTE | 2023-04-15 20:49 | CT_ITS ---
EXAM: CT ABDOMEN AND PELVIS WITH INTRAVENOUS CONTRAST CLINICAL INDICATION: Abdominal pain -- IV PO Contrast TECHNIQUE: Helically acquired images were obtained of the abdomen and pelvis with intravenous contrast. This CT exam was performed using one or more of the following dose reduction techniques: automated exposure control, adjustment of the mA and/or kV according to patient size, and/or use of iterative reconstruction technique. CONTRAST: Oral and amp; IV Gastrografin and amp; 100mL [id number] COMPARISON: CT angiogram chest, 09/01/2021. FINDINGS: LOWER THORAX: Mitral valve replacement. Right pleural effusion with dependent airspace disease which is likely atelectasis rather than pneumonia and mild diffuse interstitial prominence perhaps indicating mild edema. No cardiomegaly. ABDOMEN: LIVER: Subtle hepatic capsular lobulations perhaps indicating cirrhosis. No focal hepatic abnormality is identified. GALLBLADDER AND BILE DUCTS: No significant abnormality. No calcified gallstones. No gallbladder distention or wall edema. No intra- or extrahepatic biliary ductal dilation. PANCREAS: No significant abnormality. No focal cystic or solid mass. SPLEEN: No significant abnormality. Normal size without focal cystic or solid mass. ADRENALS: No significant abnormality. No nodules. KIDNEYS AND URETERS: No significant abnormality. Normal renal size and position. No hydronephrosis. STOMACH AND BOWEL: Colonic diverticulosis. No overwhelming evidence of acute diverticulitis. No evidence of bowel obstruction. PELVIS: APPENDIX: Normal appendix in the right lower quadrant. BLADDER: No significant abnormality. Decompressed. REPRODUCTIVE: Status post hysterectomy. ABDOMEN and PELVIS: INTRAPERITONEAL SPACE: No significant abnormality. No ascites or other fluid collection. No free air. BONES/JOINTS: Median sternotomy. Degenerative changes in the spine. No suspicious lytic or blastic abnormality. SOFT TISSUES: Small fat-containing umbilical hernia. VASCULATURE: Atherosclerosis of the aorta and its branch vessels. Abdominal aorta is non-dilated. LYMPH NODES: No significant abnormality. No enlarged lymph nodes. CT/Abdomen/Pelvis WITH Contrast IMPRESSION: 1. No evidence of bowel obstruction. No bowel perforation or acute inflammatory changes elsewhere in the bowel. 2. Right pleural effusion with dependent airspace disease which is likely atelectasis rather than pneumonia and mild diffuse interstitial prominence perhaps indicating mild edema. 3. Subtle hepatic capsular lobulations perhaps indicating cirrhosis. 4. Colonic diverticulosis. No overwhelming evidence of acute diverticulitis. Electronically Signed: Antonio Bonilla DO at 23:36 EST ,
[2023-04-15 21:08] LABS: Bacteria 0 SEEN /hpf (None Seen); Mucous, Urine 0 SEEN /hpf (<or=2+); Red Blood Cells-Urine 0 SEEN /hpf (0-5); White Blood Cells 0 SEEN /hpf (0-5)
[2023-04-15 21:16] LABS: Color, Urine Yellow (Yellow); Glucose, Dipstick 50 mg/dl (Normal); Ketone-Dipstick Negative (Negative); Leukocyte Esterase-Dipstick 25 /ul (Negative); Nitrite-Dipstick Negative (Negative); Occult Blood-Urine 10 /ul (Negative); Protein-Dipstick 30 mg/dl (Negative); Urine Bilirubin Dipstick Negative (Negative); Urine Clarity Clear (Clear); Urine Urobilinogen Normal (Normal)
[2023-04-15 21:22] LABS: Squamous Epithelial Cells - UA 0-5 SEEN /hpf (5-10)
[2023-04-15] MEDS: Morphine 4 MG/ML Syringe IV (21:39)
[2023-04-15] MEDS: 0.9% Normal Saline (1000mL) 1,000 ML 1000 ML IV (21:39)
[2023-04-15] MEDS: Ondansetron 4 MG/2 ML Vial IV (21:39)
[2023-04-15 22:24] VITALS: BP 157/72; PULSE 80; RESP 12; O2SAT 94
[2023-04-15 23:54] VITALS: BP 132/65; PULSE 75; TEMP -11.1; TEMP 12; O2SAT 96
[2023-04-16 00:06] LABS: International Normalized Ratio 3.6; Prothrombin Time (Protime)PT. 36.1 SECONDS (11.7-14.9)
== END 2023-04-16 00:01 | disposition home or self-care (01) ==
PROVIDERS: Emergency Provider Emergency Medicine; Visit Provider Emergency Medicine
DX: R10.9 Unspecified abdominal pain (principal); I11.0 Hypertensive heart disease with heart failure; I50.32 Chronic diastolic (congestive) heart failure; R11.2 Nausea with vomiting, unspecified; Z97.2 Presence of dental prosthetic device (complete) (partial); E66.9 Obesity, unspecified; E78.5 Hyperlipidemia, unspecified; F41.9 Anxiety disorder, unspecified; Z79.899 Other long term (current) drug therapy; Z79.01 Long term (current) use of anticoagulants; Z79.51 Long term (current) use of inhaled steroids; J45.909 Unspecified asthma, uncomplicated; Z95.2 Presence of prosthetic heart valve; Z90.710 Acquired absence of both cervix and uterus; Z98.51 Tubal ligation status; Z95.828 Presence of other vascular implants and grafts
CPT/HCPCS: 74177; 80053; 81001; 85025; 85610; 96361; 96374; 96375; 99283; J7030; Q9967; A4216; J2405

== ENCOUNTER 2023-05-05 13:43 | Outpatient (CLI) | payer OTHER, SELFPAY | END 2023-05-05 23:59 | disposition home or self-care (01) | PROVIDERS: Referring Provider Nurse Practitioner Acute Care; Visit Provider Nurse Practitioner Acute Care | DX: J47.9 Bronchiectasis, uncomplicated (principal); R94.2 Abnormal results of pulmonary function studies | CPT/HCPCS: 94667 ==

== ENCOUNTER 2023-05-05 13:57 | Outpatient (RCR) | payer OTHER, SELFPAY ==
[2023-02-03 22:56] VITALS: BMI 39.5
[2023-04-28 15:53] LABS: International Normalized Ratio 2.9; Prothrombin Time (Protime)PT. 30.3 SECONDS (11.7-14.9)
[2023-05-05 15:50] LABS: International Normalized Ratio 2.1; Prothrombin Time (Protime)PT. 23.8 SECONDS (11.7-14.9)
[2023-05-05 16:12] LABS: Anion Gap 3 (5-15); BUN 21 mg/dL (7-18); BUN/Creat Ratio 24.3 RATIO (10-20); Chloride 101 mmol/L (98-107); Creatinine, Serum 0.86 mg/dL (0.55-1.02); EST Glomerular Filtration Rate 71 mL/min (>60); Est Glom Filt Rate - Afr Amer 86 mL/min (>60); Glucose 124 mg/dL (74-106); Potassium 3.6 mmol/L (3.5-5.1); Sodium Level 134 mmol/L (136-145)
== END 2023-05-05 18:00 | disposition home or self-care (01) ==
LOC: LAB 13:57
PROVIDERS: Physician Assistant Medical; Referring Provider Internal Medicine Cardiovascular Disease; Visit Provider Internal Medicine Cardiovascular Disease
DX: Z95.2 Presence of prosthetic heart valve (principal); Z79.01 Long term (current) use of anticoagulants; I48.0 Paroxysmal atrial fibrillation
CPT/HCPCS: 36415; 80048; 85610

== ENCOUNTER 2023-05-19 15:27 | Outpatient (RCR) | payer OTHER, SELFPAY ==
[2023-05-06 23:09] VITALS: BMI 39.5
[2023-05-19 16:19] LABS: International Normalized Ratio 2.6; Prothrombin Time (Protime)PT. 27.8 SECONDS (11.7-14.9)
== END 2023-06-04 18:00 | disposition home or self-care (01) ==
LOC: LAB 15:27
PROVIDERS: Referring Provider Internal Medicine Cardiovascular Disease; Visit Provider Internal Medicine Cardiovascular Disease
DX: Z95.2 Presence of prosthetic heart valve (principal); Z79.01 Long term (current) use of anticoagulants; I48.0 Paroxysmal atrial fibrillation
CPT/HCPCS: 36415; 85610

== ENCOUNTER → 2023-05-21 | Outpatient (CLI) | payer OTHER, SELFPAY ==
--- OUTSIDE RECORDS SUMMARY | 2023-05-21 07:19 | XMS RPT_ITS | CCD ---
Author Name Unknown Address [address] [place] [address] Organization [facility] Care Team Providers Care Furniture Manager Name Role Phone Marcia Lindsey Unavailable Unavailable Radha Hsu Unavailable Hans Denson Y Unavailable Unavailable MD Tip, Dick S Unavailable Gianluca Faust RN Unavailable Unavailable Christianne [...] & Rash [facility] Work Phone: [phone] (11 sources) ciprofloxacin drug allergy 04-09-19 17 [facility] Work Phone: [phone] (11 sources) clarithromycin drug allergy 06-05-19 13 SOB, Hives and swelling [facility] Work Phone: [phone] (15 sources) penicillin; Translations: [PENICILLIN] drug allergy 04-24-19 17 Unknown [facility] Work Phone: [phone] (13 sources) simvastatin; Translations: [SIMVASTATIN] food allergy 06-05-19 13 Rash [facility] Work Phone: [phone] (11 sources) sulfamethoxazole / trimethoprim drug allergy 10-22-19 16 Rash [facility] Work Phone: [phone] (11 sources) BUPROPRION drug allergy 06-05-19 [address] [facility] Work Phone: [phone] (2 sources) Adhesive Tape Propensity to adverse reactions to drug 12-19-19 Itching [place], [place] (2 sources) buPROPion Drug Allergy 12-19-19 [place] (2 sources) Cephalexin Drug Allergy 12-19-19 [place] (6 sources) Ciprofloxacin; Translations: [CIPROFLOXACIN] Drug Allergy 04-24-19 17 Mental Status Change [place] (2 sources) Clarithromycin Drug Allergy 12-19-19 Hives, Shortness Of Breath, Swelling [place] (2 sources) Penicillins Propensity to adverse reactions to drug 12-19-19 Other (See Comments) [place] (2 sources) Sulfamethoxazole Drug Allergy 12-19-19 [place] (2 sources) Trimethoprim Drug Allergy 12-19-19 [place] (2 sources) Macrolides And Ketolides Propensity to adverse reactions to drug 12-19-19 [place] (4 sources) Adhesive Tape; Translations: [ADHESIVE TAPE (ROSINS)] Allergy to substance 05-09-[address] [facility] (4 sources) Sulfonamides (Antibiotic); Translations: [SULFA (SULFONAMIDE ANTIBIOTICS)] Drug Allergy 04-24-19 [facility] Medications Current Medications Medication Drug Class(es) Dates [...] 5-325 MG TABS As needed OXYCODONE-ACETAMINO PHEN [id number] Dick Whelan MD Problems Active Problems Problem [...] 09-25-2016 Episodic Other aftercare (16 sources) Other custodial (current) drug therapy; Translations: [Long-term (current) use [...] 12-04-2022 16:45-0400 Body temperature 97.39 [degF] William Wilmar TRADE UNION SECRETARY.[employer]ERR[employer] CAPTAIN Work Phone: [facility] 12-04-2022 16:45-0400 Body weight 115.39 kg William Wilmar TRADE UNION SECRETARY.FERRYBOAT CAPTAIN Work Phone: [facility] 12-04-2022 16:45-0400 Diastolic blood pressure 78 mm[Hg] William Wilmar TRADE UNION SECRETARY.FERRYBOAT CAPTAIN Work Phone: [facility] 12-04-2022 16:45-0400 Heart rate 76 /min William King TRADE UNION SECRETARY.FERRYBOAT CAPTAIN Work Phone: [facility] 12-04-2022 16:45-0400 Respiratory rate 18 /min William King TRADE UNION SECRETARY.FERRYBOAT CAPTAIN Work Phone: [facility] 12-04-2022 16:45-0400 SaO2% (BldA) [Mass fraction] 96 % William Urban TRADE UNION SECRETARY.FERRYBOAT CAPTAIN Work Phone: [facility] 12-04-2022 16:45-0400 Systolic blood pressure 140 mm[Hg] William Urban TRADE UNION SECRETARY.FERRYBOAT CAPTAIN Work Phone: [facility] 01-04-2020 09:27-0400 Body Temperature 96.8 [degF] [facility] [place] 01-04-2020 09:27-0400 BP Diastolic 51 mm[Hg] [facility] [place] 01-04-2020 09:27-0400 BP Systolic 110 mm[Hg] [facility] [place] 01-04-2020 09:27-0400 Pulse (Heart Rate) 70 /min Isaactika Mcneil [facility] 01-04-2020 09:27-0400 Pulse Oximetry 94 % Isaac Mcneil [facility] [place] 01-04-2020 09:27-0400 Respiratory Rate 18 /min [facility]actika [facility] [place] 01-03-2020 11:59-0400 BMI (Body Mass Index) 39.97 kg/m2 Isaac Mcneil [facility], [place] 01-03-2020 11:59-0400 Body weight 117.48 kg Isaac Mendez [facility] , [place] 01-03-2020 11:59-0400 Height 171.5 cm Isaac Mendez [facility] , [place] 12-28-2019 14:10-0400 BMI (Body Mass Index) 39.97 kg/m2 Isaac Mendez [facility], [place] 12-28-2019 14:10-0400 Body Temperature 96.69 [degF] [facility] [place] 12-28-2019 14:10-0400 Body weight 117.48 kg Isaac Mcneil [facility] [place] 12-28-2019 14:10-0400 BP Diastolic 75 mm[Hg] Isaac Mcneil [facility] [place] 12-28-2019 14:10-0400 BP Systolic 147 mm[Hg] Isaac Mcneil [facility] [place] 12-28-2019 14:10-0400 Pulse (Heart Rate) 82 /min Isaac Mcneil [facility] 12-28-2019 14:10-0400 Pulse Oximetry 95 % Isaac Mcneil [facility] [place] 12-28-2019 14:10-0400 Respiratory Rate 18 /min Isaac Mcneil [facility] 11-25-2016 06:57-0400 BMI (Body Mass Index) 40.09 kg/m2 Marcia César [facility] [place] Work Phone: 11-25-2016 06:57-0400 Body Temperature 98.1 [degF] Marcia César [facility] [place] Work Phone: 11-25-2016 06:57-0400 BP Diastolic 80 mm[Hg] Marciacira Lindsey [facility] [place] Work Phone: 11-25-2016 06:57-0400 BP Systolic 144 mm[Hg] Marciacira Lindsey [facility] Work Phone: 11-25-2016 06:57-0400 Height 170.18 cm Marcia César [facility] [place] Work Phone: 11-25-2016 06:57-0400 Pulse (Heart Rate) 78 /min Marcia César [facility] Work Phone: 11-25-2016 06:57-0400 Respiratory Rate 18 /min Marcia César [facility] Work Phone: 11-25-2016 06:57-0400 Weight 116.12 kg Marcia César [facility] Work Phone: 09-26-2016 13:13-0400 BMI (Body Mass Index) 40.09 kg/m2 Radha Babcock [employer] Work Phone: 09-26-2016 13:13-0400 BP Diastolic 70 mm[Hg] Radha Hsu [facility] Work Phone: 09-26-2016 13:13-0400 BP Systolic 130 mm[Hg] [facility] Work Phone: 09-26-2016 13:13-0400 Height 170.18 cm [facility] Work Phone: 09-26-2016 13:13-0400 Pulse (Heart Rate) 60 /min [facility] Work Phone: 09-26-2016 13:13-0400 Respiratory Rate 18 /min Radha [facility] Work Phone: 09-26-2016 13:13-0400 Weight 116.12 kg Radha [facility] Work Phone: 06-30-2016 09:33-0400 BMI (Body Mass Index) 41.16 kg/m2 Gianluca Faust RN [facility] [employer] [facility] Work Phone: 06-30-2016 09:33-0400 Body Temperature 98 [degF] Gianluca Faust RN [facility] [employer] [facility] Work Phone: 06-30-2016 09:33-0400 BP Diastolic 66 mm[Hg] Gianluca Faust RN [facility] Work Phone: 06-30-2016 09:33-0400 BP Systolic 134 mm[Hg] Gianluca Faust RN [facility] Work Phone: 06-30-2016 09:33-0400 Height 170.18 cm Gianluca Faust RN [facility] Work Phone: 06-30-2016 09:33-0400 Pulse (Heart Rate) 73 /min Gianluca Faust RN [facility] Work Phone: 06-30-2016 09:33-0400 Pulse Oximetry 98 % Gianluca Faust RN [facility] Work Phone: 06-30-2016 09:33-0400 Respiratory Rate 20 /min Gianluca Faust RN [facility] Work Phone: 06-30-2016 09:33-0400 Weight 119.21 kg Gianluca Faust RN [facility] Work Phone: 06-18-2016 12:57-0400 Heart rate 76 /min Lindsay Rocha RN [facility] Work Phone: 11-28-2015 09:00-0400 Body Temperature 97.52 [degF] Gianluca Faust RN [facility] Work Phone: 11-28-2015 09:00-0400 BSA (Body Surface Area) 2.36 m2 Gianluca Faust RN [facility] Work Phone: 11-28-2015 09:00-0400 Height 170.18 cm Gianluca Faust RN [facility] Work Phone: 11-28-2015 09:00-0400 Weight 130.91 kg Gianluca Faust RN [facility] Work Phone: 10-11-2015 09:20-0400 Pulse Oximetry 98 % Gianluca Faust RN [facility] Work Phone: Encounters Encounter Date Encounter Type Care Provider Facility Start: 12-06-2022 Telephone encounter Apolonia Shelley APRN.FERRYBOAT CAPTAIN Work Phone: [facility] Procedures Date Procedure Procedure Detail Performing Clinician Start: 12-04-2022 Radiologic exam chest 2 views William Urban DOUGLAS.FERRYBOAT CAPTAIN Work Phone: Start: 01-04-2020 Gluc bld gluc mntr dev cleared fda spec home use Isaac Mcneil Work Phone: Start: 01-04-2020 Blood count complete automated Nataliya Abiagil Work Phone: Start: 01-03-2020 Gluc bld gluc [...] 04-16-2016 End: 04-16-2016 *CBC with Differential Nichol Paez MD Start: 04-16-2016 End: 04-16-2016 C reactive protein [Mass/volume] in Serum or Plasma by High sensitivity method Nichol Paez MD Start: 04-16-2016 End: 04-16-2016 Erythrocyte sedimentation rate Nichol Paez MD Start: 04-16-2016 End: 04-16-2016 *CBC with Differential Nichol Paez MD Start: 04-16-2016 End: 04-16-2016 C [...] Paez MD Start: 04-09-2016 End: 04-09-2016 Bacteria culture Nichol Paez MD Start: 04-09-2016 End: 04-09-2016 Bacterica wound culture Nichol Jones Start: 04-09-2016 End: 04-09-2016 C reactive protein [...] Follow Up Appt 1 month Corina rucker [employer] Work Phone: Start: 10-22-2015 End: 10-22-2015 Chest x-ray Corina Gleason CNP Work Phone: Start: 10-22-2015 End: 10-22-2015 Fibrin D-dimer FEU Corina Gleason CNP Work Phone: Start: 10-22-2015 End: 10-22-2015 Follow Up Appt 1 month Corina rucker [employer] CAPTAIN Work Phone: Start: 10-11-2015 End: 10-11-2015 Follow Up Appt 6 months Margarita Brown Start: 10-11-2015 End: 10-11-2015 OZZIE Whelan MD Start: 10-11-2015 End: 10-11-2015 Follow Up Appt 6 months Margarita Brown Start: 10-11-2015 End: 10-11-2015 OZZIE Whelan MD Start: 03-28-2015 End: 03-29-2015 *Hepatic Function Panel Fatmata chicas PA-C Work Phone: Start: 03-28-2015 End: 03-28-2015 RACK ROOM WORKER Fatmata Price PA-C Work Phone: Start: 03-28-2015 [...] PA-C Work Phone: Start: 03-28-2015 End: 03-28-2015 RACK ROOM WORKER Fatmata Price PA-C Work Phone: Start: 03-28-2015 [...] months Margarita Brown Start: 09-29-2014 End: 09-29-2014 MM Dick Whelan MD Start: 09-29-2014 End: 09-30-2014 Documentation of current medications Dick Whelan MD Start: 09-29-2014 End: 09-29-2014 Follow Up Appt 6 months Margarita Brown Start: 09-29-2014 End: 09-29-2014 MM Dick Whelan MD Start: 09-28-2014 End: 09-28-2014 *Hepatic [...] PA-C Work Phone: Start: 02-16-2014 End: 02-16-2014 RACK ROOM WORKER Fatmata Price PA-C Work Phone: Start: 02-16-2014 [...] PA-C Work Phone: Start: 02-16-2014 End: 02-16-2014 RACK ROOM WORKER Fatmata Price PA-C Work Phone: Start: 02-16-2014 [...] PA-C Work Phone: Start: 02-07-2013 End: 02-07-2013 RACK ROOM WORKER Fatmata Price PA-C Work Phone: Start: 02-07-2013 End: 02-07-2013 Follow Up Appt 6 months Fatmata chicas PA-C Work Phone: Start: 02-07-2013 End: 02-07-2013 RACK ROOM WORKER Fatmata Price PA-C Work Phone: Start: 02-07-2013 End: 02-07-2013 Follow Up Appt 6 months Fatmata chicas PA-C Work Phone: Start: 02-03-2013 End: 02-07-2013 *Hepatic Function Panel Fatmata chicas PA-C Work Phone: Start: 02-03-2013 End: 02-07-2013 Lipid 1996 panel - Serum or Plasma Fatmata Price PA-C Work Phone: Start: 02-03-2013 End: 02-07-2013 *Hepatic Function Panel Fatmata chicsa PA-C Work Phone: Start: 02-03-2013 End: 02-07-2013 [...] MM Fatmata Price PA-C Work Phone: Start: 12-08-2012 End: 12-15-2012 *Hepatic Function Panel Fatmata [place] Lisa chicas PA-C Work Phone: Start: 12-08-2012 End: [...] Author Start: 10-28-2025 DIABETES SCREEN DIABETES SCREEN [facility] Start: 12-05-2022 Influenza vaccination INFLUENZA (#1) [facility] Start: 04-06-2022 DEPRESSION ASSESSMENT DEPRESSION ASSESSMENT [facility] Start: 03-23-2022 LIPID SCREEN LIPID SCREEN [facility] Start: 03-03-2021 COVID-19 VACCINE (4 - Mixed Product series) COVID-19 VACCINE (4 - Mixed Product series) [facility] Start: 12-27-2020 Creatinine measurement Creatinine monitoring [facility] [place] Start: 12-27-2020 Potassium monitoring Potassium monitoring [place], [place] Start: 01-19-2020 End: 01-19-2020 Office Visit 01/19/2020 Office Visit Gynecologic Oncology Nataliya Payton PA [address] [place] [id number] [facility] [employer]LE APPLICATION TESTER Oncology Start: 01-03-2020 End: 01-03-2020 Appointment 01/03/2020 Appointment General Surgery Isaac Mcneil MD [address] [place], [place] [id number] [facility] General Surgery Start: 12-06-2019 Influenza vaccination Flu vaccine (#1) [place], [place] Start: 03-09-2019 DTaP/Tdap/Td vaccine (2 - Td) DTaP/Tdap/Td vaccine (2 - Td) [place], [place] Start: 05-26-2017 End: 05-26-2017 Appointment Appointment [facility] Work Phone: Start: 03-27-2017 End: 03-27-2017 Appointment Appointment [facility] Work Phone: Start: 03-23-2017 End: 09-24-2016 *Hepatic Function Panel *Hepatic Function Panel [facility] Work Phone: Start: 03-23-2017 End: 09-24-2016 Lipid panel [AGGREGATE] *Lipid Profile CC PCP [facility] Work Phone: Start: 03-23-2017 End: 03-25-2017 *Hepatic Function Panel *Hepatic Function Panel [facility] Work Phone: Start: 03-23-2017 End: 03-25-2017 Lipid panel [AGGREGATE] *Lipid Profile CC PCP [facility] Work Phone: Start: 11-25-2016 End: 11-25-2016 DMB DMB [facility] Work Phone: Start: 11-25-2016 End: 11-25-2016 Follow Up Appt 6 months Follow Up Appt 6 months [facility] Work Phone: Start: 11-25-2016 End: 11-25-2016 Appointment Appointment [facility] Work Phone: Start: 11-25-2016 End: 11-25-2016 Appointment Appointment [facility] Work Phone: Start: 11-25-2016 End: 11-25-2016 DMB DMB [facility] Work Phone: Start: 11-25-2016 End: 11-25-2016 Follow Up Appt 6 months Follow Up Appt 6 months [facility] [place] Work Phone: Start: 09-26-2016 End: 09-26-2016 Appointment Appointment [facility] Work Phone: Start: 09-26-2016 End: 09-26-2016 Follow Up Appt 6 months Follow Up Appt 6 months [facility] Work Phone: Start: 09-26-2016 End: 09-26-2016 MMM MMM [facility] Work Phone: Start: 09-26-2016 End: 09-26-2016 Follow Up Appt 6 months Follow Up Appt 6 months [facility] Work Phone: Start: 09-26-2016 End: 09-26-2016 MMM MMM [facility] Work Phone: Start: 09-18-2016 End: 09-24-2016 *BMP *BMP [facility] Work Phone: Start: 09-18-2016 End: 09-24-2016 *Hepatic Function Panel *Hepatic Function Panel [facility] Work Phone: Start: 09-18-2016 End: 09-24-2016 Lipid panel [AGGREGATE] *Lipid Profile CC PCP [facility] Work Phone: Start: 09-18-2016 End: 09-18-2016 Appointment Appointment [facility] Work Phone: Start: 09-18-2016 End: 09-24-2016 *BMP *BMP [facility] Work Phone: Start: 09-18-2016 End: 09-24-2016 *Hepatic Function Panel *Hepatic Function Panel [facility] Work Phone: Start: 09-18-2016 End: 09-24-2016 Lipid panel [AGGREGATE] *Lipid Profile CC PCP [facility] Work Phone: Start: 07-16-2016 End: 07-16-2016 *CBC with Differential *CBC with Differential [facility] Work Phone: Start: 07-16-2016 End: 07-16-2016 C reactive protein (hsCRP) *CRP - C-Reative Protein [facility] Work Phone: Start: 07-16-2016 End: 07-16-2016 Erythrocyte sedimentation rate *Sedimentation Rate (ESR) [facility] Work Phone: Start: 07-16-2016 End: 07-16-2016 *CBC with Differential *CBC with Differential [facility] Work Phone: Start: 07-16-2016 End: 07-16-2016 C reactive protein (hsCRP) *CRP - C-Reative Protein [facility] Work Phone: Start: 07-16-2016 End: 07-16-2016 Erythrocyte sedimentation rate *Sedimentation Rate (ESR) [facility] Work Phone: Start: 07-07-2016 End: 07-07-2016 Bacteria culture *CUB - Culture, Blood [facility] Work Phone: Start: 07-07-2016 End: 07-07-2016 Bacteria culture *CUB - Culture, Blood [facility] Work Phone: Start: 06-25-2016 End: 06-30-2016 Bacteria culture *CUB - Culture, Blood [facility] Work Phone: Start: 06-25-2016 End: 06-30-2016 Bacteria culture *CUB - Culture, Blood [facility] Work Phone: Start: 06-18-2016 End: 09-15-2016 Cardiac Rehab Cardiac Rehab [address], [place], [address] [facility] Work Phone: Start: 06-18-2016 End: 06-18-2016 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 ROOM WORKER RACK ROOM WORKER [facility] Work Phone: Start: 06-18-2016 End: 06-18-2016 Ecg routine ecg w/least 12 lds w/i&r EKG (In office) [facility] Work Phone: Start: 06-18-2016 End: 06-18-2016 Follow Up Appt 3 months Follow Up Appt 3 months [facility] Work Phone: Start: 06-18-2016 End: 09-15-2016 Cardiac Rehab Cardiac Rehab [address] [place], [address] [facility] Work Phone: Start: 06-18-2016 End: 06-18-2016 RACK ROOM WORKER RACK ROOM WORKER [facility] Work Phone: Start: 06-18-2016 End: 06-18-2016 Electrocardiogram, complete EKG (In office) [facility] Work Phone: Start: 06-18-2016 End: 06-18-2016 Follow Up Appt 3 months Follow Up Appt 3 months [facility] Work Phone: Start: 04-25-2016 End: 06-30-2016 Bacteria culture *CUB - Culture, Blood [facility] Work Phone: Start: 04-25-2016 End: 06-30-2016 Bacteria culture *CUB - Culture, Blood [facility] Work Phone: Start: 04-16-2016 End: 04-16-2016 *CBC with Differential *CBC with Differential [facility] Work Phone: Start: 04-16-2016 End: 04-16-2016 C reactive protein (hsCRP) *CRP - C-Reative Protein [facility] Work Phone: Start: 04-16-2016 End: 04-16-2016 Erythrocyte sedimentation rate *Sedimentation Rate (ESR) [facility] Work Phone: Start: 04-16-2016 End: 04-16-2016 *CBC with Differential *CBC with Differential [facility] Work Phone: Start: 04-16-2016 End: 04-16-2016 C reactive protein (hsCRP) *CRP - C-Reative Protein [facility] Work Phone: Start: 04-16-2016 End: 04-16-2016 Erythrocyte sedimentation rate *Sedimentation Rate (ESR) [facility] Work Phone: Start: 04-09-2016 End: 04-09-2016 *CBC with Differential *CBC with Differential [facility] Work Phone: Start: 04-09-2016 End: 04-09-2016 Bacteria culture *CUB - Culture, Blood [facility] Work Phone: Start: 04-09-2016 End: 04-09-2016 Bacterica wound culture *Culture and Sensitivity, wound [facility] Work Phone: Start: 04-09-2016 End: 04-09-2016 C reactive protein (hsCRP) *CRP - C-Reative Protein [facility] Work Phone: Start: 04-09-2016 End: 04-09-2016 Erythrocyte sedimentation rate *Sedimentation Rate (ESR) [facility] Work Phone: Start: 04-09-2016 End: 04-09-2016 *CBC with Differential *CBC with Differential [facility] Work Phone: Start: 04-09-2016 End: 04-09-2016 Bacteria culture *CUB - Culture, Blood [facility] Work Phone: Start: 04-09-2016 End: 04-09-2016 Bacterica wound culture *Culture and Sensitivity, wound [facility] Work Phone: Start: 04-09-2016 End: 04-09-2016 C reactive protein (hsCRP) *CRP - C-Reative Protein [facility] Work Phone: Start: 04-09-2016 End: 04-09-2016 Erythrocyte sedimentation rate *Sedimentation Rate (ESR) [facility] Work Phone: Start: 11-28-2015 End: 11-28-2015 [facility] Work Phone: Start: 11-28-2015 End: 11-28-2015 Follow Up Appt 1 year Follow Up Appt 1 year [facility] Work Phone: Start: 11-28-2015 End: 11-28-2015 [facility] Work Phone: Start: 11-28-2015 End: 11-28-2015 Follow Up Appt 1 year Follow Up Appt 1 year [facility] Work Phone: Start: 10-22-2015 End: 10-22-2015 Chest x-ray X-Ray, Chest, PA & Lateral [facility] Work Phone: Start: 10-22-2015 End: 10-22-2015 Fibrin D-dimer FEU *DDIMQ - Fibrin Degrd Ultrsens Qual/Semiquan [facility] Work Phone: Start: 10-22-2015 End: 10-22-2015 Follow Up Appt 1 month Follow Up Appt 1 month [facility] Work Phone: Start: 10-22-2015 End: 10-22-2015 Chest x-ray X-Ray, Chest, PA & Lateral [facility] Work Phone: Start: 10-22-2015 End: 10-22-2015 Fibrin D-dimer FEU *DDIMQ - Fibrin Degrd Ultrsens Qual/Semiquan [facility] Work Phone: Start: 10-22-2015 End: [...] 6 months Follow Up Appt 6 months [facility] Work Phone: Start: 10-11-2015 End: 10-11-2015 MMM MMM [facility] Work Phone: Start: 09-28-2015 End: 03-29-2015 *Hepatic Function Panel *Hepatic Function Panel [facility] Work Phone: Start: 09-28-2015 End: 03-29-2015 Lipid panel [AGGREGATE] *Lipid Profile CC PCP [facility] Work Phone: Start: 03-28-2015 End: 03-29-2015 *Hepatic Function Panel *Hepatic Function Panel [employer] [facility] [employer] Work Phone: Start: 03-28-2015 End: 03-28-2015 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 WORKER 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 ROOM WORKER [employer] [facility] [employer] Work Phone: Start: 03-28-2015 End: 03-28-2015 Ecg routine ecg w/least 12 lds w/i&r EKG (In office) [employer] [facility] [employer] Work Phone: Start: 03-28-2015 End: 03-28-2015 Follow Up Appt 6 months Follow Up Appt 6 months [employer] Work Phone: Start: 03-28-2015 End: 03-29-2015 Lipid panel [AGGREGATE] *Lipid Profile CC PCP [employer] [facility] [employer] Work Phone: Start: 03-28-2015 End: 03-29-2015 *Hepatic Function Panel *Hepatic Function Panel [employer] Work Phone: Start: 03-28-2015 End: 03-28-2015 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 ROOM WORKER 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 ROOM WORKER [employer] [facility] [employer] Work Phone: Start: 03-28-2015 End: 03-28-2015 Electrocardiogram, complete EKG (In office) [employer] [facility] [employer] Work Phone: Start: 03-28-2015 End: 03-28-2015 Follow Up Appt 6 months Follow Up Appt 6 months [place] [facility] [employer] Work Phone: Start: 03-28-2015 End: 03-29-2015 Lipid panel [AGGREGATE] *Lipid Profile CC PCP [facility] [employer] Work Phone: Start: 01-02-2015 End: 03-28-2015 *Hepatic Function Panel *Hepatic Function Panel [place] [facility] [employer] Work Phone: Start: 01-02-2015 End: 03-28-2015 Lipid panel [AGGREGATE] *Lipid Profile CC PCP [facility] Work Phone: Start: 01-02-2015 End: 03-28-2015 *Hepatic Function Panel *Hepatic Function Panel [facility] Work Phone: Start: 01-02-2015 End: 03-28-2015 Lipid panel [AGGREGATE] *Lipid Profile CC PCP [facility] Work Phone: Start: 09-29-2014 End: 09-29-2014 Follow Up Appt 6 months Follow Up Appt 6 months [facility] Work Phone: Start: 09-29-2014 End: 09-29-2014 MMM MMM [facility] Work Phone: Start: 09-29-2014 End: 09-29-2014 Follow Up Appt 6 months Follow Up Appt 6 months [facility] Work Phone: Start: 09-29-2014 End: 09-29-2014 MMM MMM [facility] Work Phone: Start: 09-28-2014 End: 09-28-2014 *Hepatic Function Panel *Hepatic Function Panel [facility] Work Phone: Start: 09-28-2014 End: 09-28-2014 Lipid panel [AGGREGATE] *Lipid Profile CC PCP [facility] Work Phone: Start: 09-28-2014 End: 09-28-2014 *Hepatic Function Panel *Hepatic Function Panel [facility] Work Phone: Start: 09-28-2014 End: 09-28-2014 Lipid panel [AGGREGATE] *Lipid Profile CC PCP [facility] Work Phone: Start: 02-16-2014 End: 04-20-2014 *Hepatic Function Panel *Hepatic Function Panel [facility] Work Phone: Start: 02-16-2014 End: 02-16-2014 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 ROOM WORKER RACK ROOM WORKER [facility] Work Phone: Start: 02-16-2014 End: 02-16-2014 Ecg routine ecg w/least 12 lds w/i&r EKG (In office) [facility] Work Phone: Start: 02-16-2014 End: 02-16-2014 Follow Up Appt 6 months Follow Up Appt 6 months [facility] Work Phone: Start: 02-16-2014 End: 04-20-2014 Lipid panel [AGGREGATE] *Lipid Profile CC PCP [facility] Work Phone: Start: 02-16-2014 End: 04-20-2014 *Hepatic Function Panel *Hepatic Function Panel [facility] Work Phone: Start: 02-16-2014 End: 02-16-2014 RACK ROOM WORKER RACK ROOM WORKER [facility] [employer] Work Phone: Start: 02-16-2014 End: 02-16-2014 Electrocardiogram, complete EKG (In office) [facility] [employer] [facility] Work Phone: Start: 02-16-2014 End: 02-16-2014 Follow Up Appt 6 months Follow Up Appt 6 months [facility] Work Phone: Start: 02-16-2014 End: 04-20-2014 Lipid panel [AGGREGATE] *Lipid Profile CC PCP [facility] Work Phone: Start: 09-03-2013 End: 08-17-2013 *Hepatic Function Panel *Hepatic Function Panel [facility] Work Phone: Start: 09-03-2013 End: 08-17-2013 Lipid panel [AGGREGATE] *Lipid Profile CC PCP [facility] Work Phone: Start: 09-03-2013 End: 08-17-2013 *Hepatic Function Panel *Hepatic Function Panel [facility] Work Phone: Start: 09-03-2013 [...] 6 months Follow Up Appt 6 months [facility] Work Phone: Start: 08-18-2013 End: 02-06-2014 MMM MMM [facility] Work Phone: Start: 02-07-2013 End: 02-07-2013 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 ROOM WORKER RACK ROOM WORKER [facility] Work Phone: Start: 02-07-2013 End: 02-07-2013 Follow Up Appt 6 months Follow Up Appt 6 months [facility] Work Phone: Start: 02-07-2013 End: 02-07-2013 RACK ROOM WORKER RACK ROOM WORKER [facility] Work Phone: Start: 02-07-2013 End: 02-07-2013 Follow Up Appt 6 months Follow Up Appt 6 months [facility] Work Phone: Start: 02-03-2013 End: 02-07-2013 *Hepatic Function Panel *Hepatic Function Panel [facility] Work Phone: Start: 02-03-2013 End: 02-07-2013 Lipid panel [AGGREGATE] *Lipid Profile CC PCP [facility] Work Phone: Start: 02-03-2013 End: 02-07-2013 *Hepatic Function Panel *Hepatic Function Panel [facility] Work Phone: Start: 02-03-2013 End: 02-07-2013 Lipid panel [AGGREGATE] *Lipid Profile CC PCP [facility] Work Phone: Start: 12-08-2012 End: 12-15-2012 *Hepatic Function Panel *Hepatic Function Panel [facility] Work Phone: Start: 12-08-2012 End: 12-08-2012 Follow Up Appt 2 months Follow Up Appt 2 months [facility] Work Phone: Start: 12-08-2012 End: 12-15-2012 Lipid panel [AGGREGATE] *Lipid Profile CC PCP [facility] Work Phone: Start: 12-08-2012 End: 12-08-2012 MMM MMM [facility] Work Phone: Start: 12-08-2012 End: 12-15-2012 *Hepatic Function Panel *Hepatic Function Panel [facility] Work Phone: Start: 12-08-2012 End: 12-08-2012 Follow Up Appt 2 months Follow Up Appt 2 months [facility] Work Phone: Start: 12-08-2012 End: 12-15-2012 Lipid panel [AGGREGATE] *Lipid Profile CC PCP [facility] Work Phone: Start: 12-08-2012 End: 12-08-2012 MMM MMM [facility] Work Phone: Start: 06-04-2012 End: 06-04-2012 Follow Up Appt 6 months Follow Up Appt 6 months [facility] Work Phone: Start: 06-04-2012 End: 06-04-2012 MMM MMM [facility] Work Phone: Start: 06-04-2012 End: 06-04-2012 Follow Up Appt 6 months Follow Up Appt 6 months [facility] Work Phone: Start: 06-04-2012 End: 06-04-2012 MMM MMM [facility] Work Phone: Start: 2012 Screening for malignant neoplasm of breast Breast cancer screen [place], [place] Start: 2012 Screening for malignant neoplasm of colon Colon cancer screen colonoscopy [place], [place] Start: 2012 Shingles Vaccine (1 of 2) Shingles Vaccine (1 of 2) [place], [place] Start: 2012 SHINGRIX VACCINE (1 of 2) SHINGRIX VACCINE (1 of 2) [facility] Start: 04-19-2012 End: 04-19-2012 Left Heart Cath Left Heart Cath [facility] Work Phone: Start: 04-19-2012 End: 04-19-2012 Left Heart Cath Left Heart Cath [facility] Work Phone: Start: 04-02-2011 End: 06-04-2012 *Hepatic Function Panel *Hepatic Function Panel [facility] Work Phone: Start: 04-02-2011 End: 04-02-2011 Follow Up Appt 6 months Follow Up Appt 6 months [facility] Work Phone: Start: 04-02-2011 End: 06-04-2012 Lipid panel [AGGREGATE] *Lipid Profile [facility] Work Phone: Start: 04-02-2011 End: 06-04-2012 *Hepatic Function Panel *Hepatic Function Panel [facility] Work Phone: Start: 04-02-2011 End: 04-02-2011 Follow Up Appt 6 months Follow Up Appt 6 months [facility] Work Phone: Start: 04-02-2011 End: 06-04-2012 Lipid panel [AGGREGATE] *Lipid Profile [facility] Work Phone: Start: 2007 COLOGUARD (FIT-DNA) COLOGUARD (FIT-DNA) [facility] Start: 2007 Colonoscopy COLONOSCOPY [facility] Start: 2007 COLORECTAL CANCER SCREENING COLORECTAL CANCER SCREENING [facility] Start: [address] COLONOGRAPHY [facility] Start: 2007 FECAL OCCULT BLOOD FECAL OCCULT BLOOD [facility] Start: 2007 SIGMOIDOSCOPY SIGMOIDOSCOPY [facility] Start: 2002 Diabetes screen Diabetes screen [employer] Start: 2002 Mammography MAMMOGRAM [facility] Start: 1992 HPV TESTING HPV TESTING [facility] Start: 1983 PAP TESTING PAP TESTING [facility] Start: 1983 Screening for malignant neoplasm of cervix Cervical cancer screen [employer] Start: 1981 Urine microalbumin profile DTAP,TDAP,TD (1 - Tdap) [facility] Start: 1980 HEPATITIS C SCREENING HEPATITIS C SCREENING [facility] Start: 1980 HIV SCREENING HIV SCREENING [facility] Start: 1977 HIV screening HIV screen [place], [place] Start: 1972 Lipid panel Lipid screen [place], [place] Start: 1962 Creatinine measurement Creatinine monitoring [facility] Start: 1962 Hepatitis C screening Hepatitis C screen [place], [place] Start: 1962 Potassium monitoring Potassium monitoring [place], [place] EKG 12 Lead EKG 12 Lead ECG Routine 12/28/2019 3:08 PM EDT [place], [place] Oxygen therapy [[facility]] Initiate Oxygen Therapy Protocol Respiratory Care Routine Daily until discontinued starting 01/03/2020 [place], [place] Immunizations Immunization Date Immunization Notes Care Provider Mike phelan 04-25-2016 pneumococcal vaccine , unspecified formulation; Translations: [PNEUMOCOCCAL VAC POLYVALENT] Lindsay Rocha RN [employer] Work Phone: Payers Date Payer Category Payer Medicaid [employer] [id number] 2022-Present [phone] [address] [place] [address] Medicaid [id number] 2022 Medicaid [id number] 2019 Unknown [id number] 2017 Private Health Insurance [id number] Social History Date Type Detail Facility Start: 01-03-2020 End: 12-04-2022 Tobacco smoking status NHIS Never smoker [facility] Start: 01-03-2020 End: 12-04-2022 Tobacco use and exposure [facility] Start: 12-28-2019 End: 01-03-2020 Alcohol intake Current drinker of alcohol (finding) [facility] Start: 12-28-2019 Alcohol Comment rarely [facility]essa Rodriguez [place], [place] Start: 1960 Sex Assigned At Not on file M [place], [place] Exposure to SARS-CoV -2 (event) Not sure Vanessa [place], [place] Start: 12-04-2022 Alcohol intake 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 (finding) [facility] Start: 03-14-2020 End: 12-04-2022 History of Social function [facility] Start: 03-14-2020 End: 12-04-2022 Tobacco use panel [facility] National Score (1-10 0), lower number is lower risk Not on file [facility] Medical Equipment Procedure Code Equipment Code Equipment Original Text Equipment Identifier Dates [place] Thk1.65mm P tfe 4x.5in Cardiovascular Sterile - [id number] Start: 05-13-2016 Note 12-06-2022 Telephone Encounter - Apolonia Hawkins APRN.FERRYBOAT CAPTAIN - 12/06/2022 12:51 PM EDT Note Date & Type Note Facility 12-06-2022 Miscellaneous Notes Formattin g of this note might be different from the original. Patient's presents to express care, patient was seen here on 12/04/22 [...] provider copied on this note. Apolonia Hawkins APRN.FERRYBOAT CAPTAIN documented in this encounter [facility] Note 12-05-2022 Telephone Encounter - Kristen [...] negative COVID test documented in this encounter [facility] Progress note 12-04-2022 Note Date & Type Note Facility 12-04-2022 Note HNO ID: [id number] Author: Mary Guerrier RT(R) Service: ? Author Type: Therapeutic Support Staff Type: Progress Notes Filed: 12/04/2022 5:23 PM Note Text: Radiology Service Progress Note PATIENT NAME: Isabella Mckeon DATE OF SERVICE: December 04, 2022 TIME: [...] RT Edith(R) December 04, 2022 5:04 PM [facility] Progress note 12-04-2022 Note Date & Type Note Facility 12-04-2022 Note HNO ID: [id number] Author: William Urban APRN.FERRYBOAT CAPTAIN Service: ? Author Type: Nurse Practitioner Type: Progress Notes Filed: 12/04/2022 5:56 PM Note Text: Subjective HPI HPI Isabella Mckeon is a 62 year old female who [...] MG DAILY August 16, 2019 3:28pm 08-16-2019 [facility] ([id number]) guaiFENesin (MUCINEX) 600 mg 12 hr tablet [...] S2 norm (more content not included)... [facility] Instructions 12-04-2022 Patient Instructions Note Date & Type Note Facility 12-04-2022 Instructions William Urban APRN.CNP - 12/04/2022 5:48 PM EDT ASSESSMENT/PLAN: 1. [...] COVID NAAT, ROUTINE documented in this encounter [facility] History of Present illness Narrative 12-04-2022 William Urban APRN.CNP - 12/04/2022 4:59 PM EDT Note Date & Type Note Facility 12-04-2022 History of Presen t illness Narrative Subjective HPI HPI Isabella Mckeon is a 62 year old female who [...] Procedure Laterality Date MIDLINE INSERTION/CONSULT 05/18/2016 MYECTOMY 2002 for hypertrophic cardiomyopathy PICC LINE INSERT/CONSULT 05/20/2016 [...] MG DAILY August 16, 2019 3:28pm 08-16-2019 [facility] ([id number]) guaiFENesin (MUCINEX) 600 mg 12 hr tablet [...] William MAHER APRN.CNP documented in this encounter [facility] History of Past illness Narrative 2016 Note Date & Type Note Facility documented as of this encounter (statuses as of 12/05/2022) [facility] History of Past illness Narrative 2016 Note Date & Type Note Facility documented as of this encounter (statuses as of 12/05/2022) [facility] History of Past illness Narrative 2016 Note Date & Type Note Facility documented as of this encounter (statuses as of 12/06/2022) [facility] Evaluation note Note Date & Type Note Facility documented in this encounter [facility] Summary Purpose Family History No Family History Records FoundNo Family History Records FoundNo Family History Records Found Advance Directives No Advanced Directives Records FoundLatest Code Status on File Code Status Date Activated Date Inactivated Comments Full Code 01/03/2020 6:28 PM Full Code 01/03/2020 11:56 AM 01/03/2020 6:01 PM Hospital Course Note Polygraph Operator Onc Discharge Summary Deon leblanc Name: Isabella Mckeon Patient : 1960 Primary Care Physician: DOUGLAS GRIDER CNP Admit Date: 01/03/2020 Attending Provider: Isaac Mcneil MD Principal Diagnosis: endometrial adenocarcinoma Other Diagnosis: Post-operative state [Z98.890] Patient Active Problem List Diagnosis ? Post-operative state ? Endometrial cancer (HCC) obesity with BMI > 35 Surgical Operations & Procedures: RTLH, BSO, LNS (01/03/20) Consultations: none Pertinent Findings & Procedures: Isabella Mckeon is a 59 y.o. female admitted for [...] care instructions given to you by your Assistance Representative Oncologist's office at your pre operative visit. Please call the office with questions or concerns and be sure to follow up at your scheduled post operative visit. documented in this encounter* Instructions* Alise Block RN - 12/28/2019 Please bring your [employer] Surgical Information folder on the day of [...] through Care Everywhere. * Laparoscopic Hysterectomy: Post-op (Mongolian) documented in this encounter History of Present Illness * Naya Starks RN - 01/04/2020 11:37 AM EDT Discharge instructions given and verbailzes understanding of these * Nataliya Hayes MD - 01/04/2020 5:49 AM EDT Gynecologic Oncology Progress Note Date: 01/04/2020 Time: 5:49 AM Isabella Mckeon 59 y.o. female POD#1 s/p RTLH, BSO, [...] PRN Nataliya Hayes MD 100 mg at 101 DULoxetine (CYMBALTA) extended release capsule 60 mg [...] Nataliya Hayes MD 40 mg at 01/04/20 05 torsemide (DEMADEX) tablet 40 mg 40 mg [...] Oral BID Guerrero Mir DO 600 mg at01/03/20 2207 Diagnostics: No results found. Labs: Admission on 01/03/2020 Component Date Value Ref Range Status POC Glucose 01/03/2020 211* 70 - 100 mg/dL Final Comment: Test performed by glucose meter. Results may be 10%-15% lower than serum/plasma values. (CLIA ID [id number]) Protime 01/03/2020 11.1 9.0 - 12.0 s [...] 10%-15% lower than serum/plasma values. (CLIA ID [id number]) WBC 01/04/2020 12.3* 3.6 - 10.7 10*3/uL [...] 10%-15% lower than serum/plasma values. (CLIA ID [id number]) Assessment/Plan: Isabella Mckeon 59 y.o. female POD#1 s/p RTLH, BSO, [...] DATE CREATED AUTHOR AUTHOR'S ORGANIZ ATION 01/16/2020 [facility] DATE CREATED AUTHOR AUTHOR'S ORGANIZ ATION 04/17/2023 [facility] Source Comments (unrecognize d section and content) In the event this informatio n is protected by the Federal Confidentiality of Alcohol and Drug Abuse Patient Records regulations: The Federal rules restrict any use of the information to criminally investigate or prosecute any alcohol or drug abuse patient.[facility] the event this information is protected by the Federal Confidentiality of Alcohol and Drug Abuse Patient Records regulations: The Federal rules restrict any use of the information to criminally investigate or prosecute any alcohol or drug abuse patient.[facility] the event this information is protected by the Federal Confidentiality of Alcohol and Drug Abuse Patient Records regulations: The Federal rules restrict any use of the information to criminally investigate or prosecute any alcohol or drug abuse patient.[facility] Reason for Visit (unrecogniz ed section and content) Reason Comments Results Reason Comments Medication Problem Care Teams (unrecognized sec tion and content) Furniture Manager Relationship Specialty Start Date End Date Gianluca Luna CNP [address] [place] [address] PCP - General Internal Medicine 07/10/21 Jj [...] BE BASED ON THE PRIMARY CLINICAL RECORDS. [facility] [employer] [facility]. provides no warranty or guarantee of the accuracy or completeness of information in this document.
[2023-05-21 08:23] LABS: Anion Gap 5 (5-15); BUN 18 mg/dL (7-18); BUN/Creat Ratio 17.8 RATIO (10-20); Calcium,Total 9.4 mg/dL (8.5-10.1); Chloride 104 mmol/L (98-107); Creatinine, Serum 1.01 mg/dL (0.55-1.02); EST Glomerular Filtration Rate 59 mL/min (>60); Est Glom Filt Rate - Afr Amer 72 mL/min (>60); Glucose 157 mg/dL (74-106); Potassium 4.6 mmol/L (3.5-5.1); Sodium Level 137 mmol/L (136-145)
== END | disposition home or self-care (01) ==
PROVIDERS: Referring Provider Nurse Practitioner Gerontology; Visit Provider Nurse Practitioner Gerontology
DX: R25.2 Cramp and spasm (principal); E87.6 Hypokalemia
CPT/HCPCS: 36415; 80048

== ENCOUNTER → 2023-06-09 | Outpatient (CLI) | payer OTHER, SELFPAY ==
[2023-06-09 16:51] LABS: International Normalized Ratio 2.5
[2023-06-09 17:19] LABS: Anion Gap 7 (5-15); BUN 22 mg/dL (7-18); Calcium,Total 8.9 mg/dL (8.5-10.1); Chloride 102 mmol/L (98-107); EST Glomerular Filtration Rate 54 mL/min (>60); Est Glom Filt Rate - Afr Amer 65 mL/min (>60); Glucose 139 mg/dL (74-106); Potassium 4.4 mmol/L (3.5-5.1); Sodium Level 139 mmol/L (136-145)
== END | disposition home or self-care (01) ==
PROVIDERS: Referring Provider Physician Assistant Medical; Visit Provider Physician Assistant Medical
DX: R25.2 Cramp and spasm (principal); E87.6 Hypokalemia
CPT/HCPCS: 36415; 80048; 85610

== ENCOUNTER → 2023-06-10 | Outpatient (CLI) | payer OTHER, SELFPAY ==
--- NOTE | 2023-06-10 10:00 | RAD_ITS ---
INDICATION: MCMILLAN EXAMINATION/TECHNIQUE: X-RAY - XR Chest 2 Views COMPARISON: Prior study dated: 04/08/2023 FINDINGS: LINES/DEVICES: None. LUNGS: No new infiltrate is seen. Persistent blunting of the right costophrenic angle. MEDIASTINUM AND CARDIOVASCULAR STRUCTURES: The cardiac silhouette remains enlarged. Status post median sternotomy and valvular replacement. BONES AND SOFT TISSUES: Unchanged. RAD/Chest PA and Lateral IMPRESSION: 1. No significant change. 2. No new infiltrate is seen. 3. Persistent blunting of the right costophrenic angle likely due to small right pleural effusion. Electronically Signed: Jfef Vallejo MD at 12:56 EST ,
[2023-06-10 10:55] LABS: Absolute Lymphocyte Count 1.92 X10^3/uL (0.83-4.51); Absolute Neutrophil Count 3.6 X10^3/uL (2.0-7.7); Basophil# 0.04 X10^3/uL; Basophil% 0.6 % (0-1); Hemoglobin 13.2 g/dL (12.0-15.0); Lymphocyte # 1.92 X10^3/ul (0.83-4.51); Lymphocyte % 29.1 % (19-41); Mean Corp Hgb Conc 32.2 g/dL (32-36); Mean Corpuscular Hgb 30.1 pg (27.0-32.0); Mean Corpuscular Volume 93.4 fL (81-99); Monocyte# 0.77 X10^3/uL; Monocyte% 11.7 % (0-10); NRBC Flagged by Analyzer 0 % (0-5); Neutrophil # 3.64 X10^3/uL (2.7-7.7); Neutrophil % 55.3 % (47-70); Platelet Count 239 K/mm3 (150-450); RBC Distribution Width SD 51.7 fl (35.1-43.9); Red Blood Count 4.39 M/mm3 (4.2-5.4); White Blood Count 6.6 K/mm3 (4.4-11.0)
[2023-06-10 11:12] LABS: BNP,B-Type NATRIURETIC PEPTIDE 274.1 pg/mL (0-100)
== END | disposition home or self-care (01) ==
PROVIDERS: Referring Provider Nurse Practitioner Gerontology; Visit Provider Nurse Practitioner Gerontology
DX: R06.00 Dyspnea, unspecified (principal)
CPT/HCPCS: 36415; 71046; 83880; 85025

== ENCOUNTER 2023-07-03 07:04 | Outpatient (RCR) | payer OTHER, SELFPAY ==
[2023-06-05 02:55] VITALS: BMI 39.5
[2023-06-18 16:32] LABS: International Normalized Ratio 1.7; Prothrombin Time (Protime)PT. 20.2 SECONDS (11.7-14.9)
[2023-06-18 17:04] LABS: Anion Gap 8 (5-15); BUN 24 mg/dL (7-18); BUN/Creat Ratio 25.1 RATIO (10-20); Calcium,Total 9.2 mg/dL (8.5-10.1); Chloride 99 mmol/L (98-107); Creatinine, Serum 0.96 mg/dL (0.55-1.02); EST Glomerular Filtration Rate 63 mL/min (>60); Est Glom Filt Rate - Afr Amer 76 mL/min (>60); Glucose 221 mg/dL (74-106); Potassium 3.9 mmol/L (3.5-5.1); Sodium Level 136 mmol/L (136-145)
[2023-07-03 08:36] LABS: Prothrombin Time (Protime)PT. 30.8 SECONDS (11.7-14.9)
== END 2023-07-05 01:40 | disposition home or self-care (01) ==
LOC: LAB 07:04
PROVIDERS: Nurse Practitioner Gerontology; Referring Provider Internal Medicine Cardiovascular Disease; Visit Provider Internal Medicine Cardiovascular Disease
DX: Z95.2 Presence of prosthetic heart valve (principal); Z79.01 Long term (current) use of anticoagulants; I48.0 Paroxysmal atrial fibrillation
CPT/HCPCS: 36415; 80048; 85610

== ENCOUNTER 2023-08-20 07:28 | Outpatient (RCR) | payer OTHER, SELFPAY ==
[2023-07-05 01:40] VITALS: BMI 39.5
[2023-08-20 09:15] LABS: International Normalized Ratio 2.4; Prothrombin Time (Protime)PT. 26.1 SECONDS (11.7-14.9)
== END 2023-08-20 18:00 | disposition home or self-care (01) ==
LOC: LAB 07:28
PROVIDERS: PCP Nurse Practitioner Family; Referring Provider Internal Medicine Cardiovascular Disease; Visit Provider Internal Medicine Cardiovascular Disease
DX: Z95.2 Presence of prosthetic heart valve (principal); Z79.01 Long term (current) use of anticoagulants; I48.0 Paroxysmal atrial fibrillation
CPT/HCPCS: 36415; 85610

== ENCOUNTER 2023-09-03 06:19 | Emergency (ER) | payer OTHER, SELFPAY ==
[2023-09-03] VITALS (7 sets, daily range): BP systolic 124–159; BP diastolic 68–83; PULSE 65–79; RESP 15–22; TEMP 36.3–36.8; O2SAT 92–98; BMI 41.3
--- NOTE | 2023-09-03 07:21 | CT_ITS ---
STUDY: CT ABDOMEN AND PELVIS WITH CONTRAST REASON FOR EXAM: Female, 63 years old. Lower abd pain, diarrhea. RADIATION DOSAGE (If Supplied By Facility): CTDIvol = ( 17.07 ) mGy, DLP = ( 1207.02 ) mGycm TECHNIQUE: Transaxial images were obtained from the dome of the diaphragm to the symphysis pubis without oral contrast. 100 ML ISOVUE 300 was administered. Sagittal and coronal images were reconstructed. Individualized dose optimization techniques were used for this CT. COMPARISON: Comparison is made with prior study dated April 15, 2023. FINDINGS: There is a small right pleural effusion with right basilar atelectasis. Coronary artery calcification. Mitral valve replacement. Normal liver. Small amount of the perihepatic fluid. Small amount of fluid is seen in the pericholecystic region. Questionable mild thickening of the gallbladder wall. Correlation with ultrasound recommended if clinically indicated. Normal spleen. Normal pancreas. Normal bilateral adrenal glands. Normal right kidney. Normal left kidney. Normal visualized stomach. Normal small intestine. There are multiple colonic diverticula consistent with diverticulosis. Small amount of fluid is seen in the left paracolic gutter. There is non-visualization of the appendix. There is diffuse atherosclerotic calcification of the abdominal aorta, without a demonstrated aneurysm. Normal inferior vena cava. Normal retroperitoneum. Normal urinary bladder. Small amount of free fluid is seen in the pelvis and in the cul-de-sac. The patient is status post hysterectomy. Normal abdominal wall. There are degenerative changes of the visualized lumbar spine. Loss of height of the L3 vertebrae. CT/Abdomen/Pelvis W IV Cont ONLY IMPRESSION: Perihepatic fluid as well as fluid in the pericholecystic region. Correlation with ultrasound of gallbladder recommended if clinically indicated. Small amount of free fluid in the pelvis as well as in the cul-de-sac and the left paracolic gutter. Sigmoid diverticulosis. Electronically Signed: Luis Boogie MD at 9:26 EDT ,
--- NOTE | 2023-09-03 07:24 | ED.VIS.GI ---
HPI HPI - GI History of Present Illness Chief Complaint: Abd Pain Informant: patient Narrative Narrative: Patient is 63-year-old female with history of mechanical mitral and aortic valve repair, diastolic heart failure, hypertension, hyperlipidemia, chronic Coumadin therapy, proximal atrial fibrillation and endometrial cancer (treated with hysterectomy) presenting with 2 to 3 weeks of worsening pain and diarrhea. Patient states that is a constant dull pain but then she will get sharp cramping pain usually followed by bowel movement. She notes yesterday she had 6 bowel movements the day before that she was going every 25 to 30 minutes. Denies any black or blood in her stool but is having some mild blood with wiping due to frequent wiping. Did have a colonoscopy less than 5 years ago and states everything was normal from that standpoint. Is had a mild headache with this and some nausea denies any fever chills or vomiting. Not had any recent antibiotics. No sick contacts reported. Denies any history of this colon/GI issues. States that she has been passing mostly mucus and smaller flakes of stool that vary between the shape of maria elena and snakes. Feels that her mouth is dry. No other complaints or concerns at this time. Today the pain started going to her back which is what triggered her to go to the emergency room. Denies any associated urinary symptoms. [facility] Medical History Cutaneous abscess COVID-19 (05/01/21) Wears glasses Wears dentures On home oxygen therapy Cancer Anxiety Hypertension CPAP (continuous positive airway pressure) dependence Positive GBS test Endometrial cancer Secondary pulmonary arterial hypertension Nonrheumatic aortic (valve) stenosis with insufficiency Congenital subaortic stenosis of membranous type Essential (primary) hypertension Narcolepsy Allergic rhinitis Obesity Streptococcal septicemia History of bacterial endocarditis Nonrheumatic mitral valve insufficiency Chronic diastolic (congestive) heart failure Left bundle branch block Asthma HLD (hyperlipidemia) Subvalvar aortic stenosis Obstructive sleep apnea Psoriasis Morbid obesity Home Medications ?Medication ?Instructions ?Recorded ?Last Taken ?Type multivitamin with folic acid 400 1 tab PO DAILY SUPPLEMETN 05/30/16 07/10/20 History mcg tablet metformin 500 mg tablet 250 mg PO DAILY DM 08/16/19 07/10/20 History melatonin 5 mg capsule 5 mg PO QHS SLEEP 05/21/20 07/09/20 History omeprazole 40 mg capsule,delayed 40 mg PO DAILY GERD 05/21/20 02/04/21 History release acetaminophen 500 mg tablet 1,000 mg PO DAILY 11/08/20 Unknown History (Tylenol Extra Strength) cholecalciferol (vitamin D3) 1,250 1,250 mcg PO QWEEK supplement 11/08/20 08/26/21 History mcg (50,000 unit) capsule duloxetine 60 mg capsule,delayed 120 mg PO DAILY 11/08/20 09/01/21 10:00 History release (Cymbalta) warfarin 5 mg tablet 2.5 mg PO DAILY 11/22/20 01/31/21 History metoprolol tartrate 25 mg tablet 25 mg PO BID HEART #180 tabs 12/11/20 02/04/21 Rx diphenhydramine HCl 25 mg capsule 25 mg PO QHS 01/30/21 Unknown History (Benadryl) warfarin 7.5 mg tablet 7.5 mg PO .COMPLEX #90 tabs 11/18/21 Unknown Rx gabapentin 100 mg capsule 100 mg PO BID 02/04/22 Unknown History gabapentin 100 mg capsule 300 mg PO QHS 02/04/22 Unknown History warfarin 5 mg tablet 5 mg PO .COMPLEX #90 tabs 09/24/22 Unknown Rx clobetasol 0.05 % topical cream 1 applic topical BID PRN 11/05/22 Unknown History magnesium oxide 500 mg PO DAILY 11/05/22 Unknown History albuterol sulfate 90 mcg/actuation 2 puff inhalation Q4H PRN 01/14/23 Unknown Rx aerosol inhaler (Ventolin HFA) shortness of breath or wheezing #8.5 grams azelastine 137 mcg (0.1 %) nasal 2 spray intranasal BID #30 mL 01/14/23 Unknown Rx spray aerosol budesonide-formoterol HFA 160 2 puff inhalation BID #10.2 grams 01/14/23 Unknown Rx mcg-4.5 mcg/actuation aerosol inhaler (Symbicort) fluticasone propionate 50 2 spray intranasal QDAY #1 device 01/14/23 Unknown Rx mcg/actuation nasal spray,suspension (Flonase Allergy Relief) ipratropium 0.5 mg-albuterol 3 mg 3 ml inhalation Q4H PRN PRN SOB 01/14/23 Unknown Rx (2.5 mg base)/3 mL nebulization &/OR WHEEZING #180 mL soln loratadine 10 mg tablet 10 mg PO DAILY ALLERGIES #90 tabs 01/14/23 Unknown Rx diphenoxylate-atropine 2.5 1 tab PO 4X/DAY PRN PRN diarrhea 5 04/06/23 Unknown Rx mg-0.025 mg tablet (Lomotil) days #20 tabs lorazepam 1 mg tablet (Ativan) 1 mg PO TID PRN Muscle 04/06/23 Unknown Rx cramps/spasms 5 days #15 tabs metoclopramide HCl 10 mg tablet 10 mg PO Q6H PRN nausea and 04/08/23 Unknown Rx (Reglan) vomiting #14 tabs PEP device #1 ea 05/05/23 Unknown Rx potassium chloride 20 mEq 20 meq PO .COMPLEX this RX is for 08/17/23 Unknown Rx tablet,extended dose correction #270 tabs release(part/cryst) (Klor-Con M) torsemide 20 mg tablet 20 mg PO DAILY FLUID #90 tabs 08/17/23 Unknown Rx ciprofloxacin HCl 500 mg tablet 500 mg PO BID #14 TABLETS 09/03/23 Unknown Rx metronidazole 500 mg tablet 500 mg PO Q8H 7 days #21 tabs 09/03/23 Unknown Rx Allergy/AdvReac Type Severity Reaction Status Date / Time clarithromycin (From Biaxin) Allergy Severe SOB, hives Verified 07/29/23 12:47 and swelling cephalexin (Cephalexin) Allergy Rash Verified 07/29/23 12:47 simvastatin Allergy Rash Verified 07/29/23 12:47 sulfamethoxazole Allergy Rash Verified 07/29/23 12:47 trimethoprim Allergy Rash/leg Verified 07/29/23 12:47 swelling bupropion AdvReac Severe worsened Verified 07/29/23 12:47 depression spironolactone AdvReac Intermediate Hair Loss Verified 08/17/23 14:20 adhesive tape AdvReac Itching Verified 07/29/23 12:47 ciprofloxacin AdvReac Itching Verified 07/29/23 12:47 Macrolide Antibiotics AdvReac Unknown Verified 07/29/23 12:47 Penicillins AdvReac Unknown Verified 07/29/23 12:47 Family History Father CAD (coronary artery disease) Hypertension Mother , age 55 Sudden cardiac Hypertension Abdominal aortic aneurysm rupture Brother Hypertension Sister Hypertension Surgical History H/O bilateral salpingo-oophorectomy (01/2020) History of robot-assisted laparoscopic hysterectomy (01/2020) Resection of subaortic membrane (2002) History of tubal ligation HX venous access device placed History of mechanical aortic valve replacement (05/13/16) History of mitral valve replacement with mechanical valve (05/13/16) Social History household members: spouse number of children: 4 current occupational status: unemployed history of recent travel: No sexually active: Yes Smoking Status: Never smoker alcohol intake: never substance use type: does not use diet: low carbohydrate caffeine: No what type of physical activity do you participate in: walking seatbelt use: always do you feel safe at home: Yes additional social history: - Dylan PILO ROS ED Constitutional Constitutional ED: Denies chills or fever(s) Cardiovascular Cardiovascular: Denies chest pain Respiratory/Chest Respiratory/Chest: Denies cough Gastrointestinal Gastrointestinal: Reports abdominal pain, diarrhea and nausea; Denies melena or vomiting Genitourinary Genitourinary ED: Denies dysuria or urinary frequency Musculoskeletal Musculoskeletal: Denies arthralgias or myalgias Integumentary Denies rash Neurologic Neurologic: Reports headache(s) Hematologic/Lymphatic Hematologic/Lymphatic: Reports easy bleeding EXAM Physical Exam Const Vital Signs: 09/03/23 06:20 09/03/23 07:24 09/03/23 08:53 Temperature 98.2 F 97.3 F L 97.5 F L Temperature Source Oral Oral Oral Pulse Rate 74 76 65 Respiratory Rate 18 15 15 Blood Pressure 159/83 H 134/69 H 124/74 H Blood Pressure Mean 108 90 90 Pulse Ox 96 98 98 Oxygen Delivery Method Room Air Room Air Room Air 09/03/23 10:05 09/03/23 12:00 09/03/23 14:00 Temperature 97.5 F L Temperature Source Oral Pulse Rate 79 77 79 Respiratory Rate 15 18 18 Blood Pressure 138/72 H 147/70 H Blood Pressure Mean 94 95 Pulse Ox 96 94 95 Oxygen Delivery Method Room Air Room Air Nasal Cannula 09/03/23 15:17 Temperature 98 F Temperature Source Pulse Rate 79 Respiratory Rate 22 H Blood Pressure 129/68 H Blood Pressure Mean 88 Pulse Ox 92 Oxygen Delivery Method Positive well nourished and well developed General Appearance ED: well developed; Negative for pallor HEENT Reports dry mucous membranes normocephalic and atraumatic Mouth ED: Yes dry mucous membranes Mouth: dry mucous membranes Eyes PERRL General Eye ED: Negative for scleral icterus Neck supple Resp normal respiratory effort and clear to auscultation bilaterally Cardio regular rate and regular rhythm Cardio Narrative: Murmur present?S2 click GI Inspection: Negative for abdominal distention Auscultation: hypoactive bowel sounds Palpation: soft and tender LLQ, RLQ and suprapubic; Negative for guarding, hernia or rebound tenderness present Neuro Sensorium / Orientation: alert Motor Exam: Negative for general weakness Psych mental status grossly normal and thought process normal Skin no wounds General Skin Exam: Negative for jaundice or pallor MDM MDM MDM Narrative Medical decision making narrative: Patient is evaluated for worsening lower abdominal pain with cramping diarrhea. Differential includes but is not limited to small bowel obstruction, diverticulitis, enteritis, intra-abdominal abscess and colonic obstruction. Patient is given 500 cc fluid bolus to failure but she does appear mildly dry, IV morphine and Zofran CT abdomen pelvis to look for source of her symptoms and discomfort. Lab work is largely unremarkable. No acute infectious symptoms based on lab work. Creatinine is mildly elevated 1.03 but appears to be at her baseline. Urinalysis not consistent with infection. CT abdomen pelvis is obtained with IV contrast which shows. Paddock fluid in the pericholecystic region recommend correlation with ultrasound of the gallbladder and a small amount of free fluid in the pelvis as well as the cul-de-sac and the left paracolic gutter. There is sigmoid diverticulosis. Right upper quadrant ultrasound is added on which shows pericholecystic fluid fluid and some gallbladder wall thickening however patient does not have a transaminitis, white blood cell count and does not really have pain in the right upper quadrant with a negative Grande's sign. Case is discussed with surgeon on-call, Dr. Sawant, who reviewed the patient's images. He recommends a CT with oral contrast but is not sure what to think of this fluid either. Patient is agreeable with this. CT with oral contrast is performed and This now shows possible mild degree of sigmoid diverticulitis and continued. Pelvic fluid as well as fluid in the paracolic gutters and pelvis. No other acute change. Patient does not require redose of pain medication and remains hemodynamically stable in the emergency room. At rest she is wearing oxygen but patient states she wears oxygen at home while sleeping. She does not have any progressive changes to her abdominal exam. Patient be treated for diverticulitis with ciprofloxacin and Flagyl. Patient has multiple antibiotic allergies but her side effect from Cipro seems to be itching and not a true allergy so we will try that as she is allergic to penicillins, has a rash with cephalexin so would like to avoid Omnicef and is also has a rash with Bactrim. Patient is counseled that she will need a recheck of her Coumadin level with these antibiotics. Is counseled to follow-up with her primary care doctor but will also require referral to GI for further evaluation of this free fluid. She is agreeable with this plan of care. Is given return precautions. Discharged home in stable condition. Lab Data Attestation: I reviewed the patient's lab results. Labs: Laboratory Results - last 24 hr 09/03/23 09/03/23 07:08 07:15 WBC 7.7 RBC 4.07 L Hgb 12.4 Hct 38.6 MCV 94.8 MCH 30.5 MCHC 32.1 RDW Std Deviation 55.1 H RDW Coeff of Ham 15.8 H Plt Count 233 MPV 10.8 Immature Gran % (Auto) 0.400 Neut % (Auto) 64.7 Lymph % (Auto) 22.4 [place] % (Auto) 11.4 H Eos % (Auto) 0.8 Baso % (Auto) 0.3 Absolute Neuts (auto) 5.0 Absolute Lymphs (auto) 1.72 Nucleated RBC % 0 PT 32.1 H INR 3.2 Sodium 137 Potassium 3.8 Chloride 103 Carbon Dioxide 30.0 Anion Gap 4 L BUN 18 Creatinine 1.03 H Estim Creat Clear Calc 76.86 Est GFR (MDRD) Af Amer 70 Est GFR (MDRD) Non-Af 58 L BUN/Creatinine Ratio 17.5 Glucose 122 H Calcium 9.0 Total Bilirubin 1.30 H AST 24 ALT 19 Alkaline Phosphatase 52 B-Natriuretic Peptide 540.8 H Total Protein 7.7 Albumin 3.4 Globulin 4.3 H Albumin/Globulin Ratio 0.8 L Urine Color Yellow Urine Clarity Clear Urine pH 6.5 Ur Specific [place] 1.010 Urine Protein 100 H Urine Glucose (UA) Normal Urine Ketones Negative Urine Occult Blood 10 H Urine Nitrite Negative Urine Bilirubin Negative Urine Urobilinogen 1 H Ur Leukocyte Esterase 25 H Urine RBC 0 SEEN Urine WBC 0-5 SEEN Ur Squamous Epith Cells 0-5 SEEN Urine Bacteria 0 SEEN Urine Mucus 0 SEEN Radiography Diagnostic Testing: Clinical Impression(s) from Imaging Studies Abdomen/Pelvis CT 09/03/23 07:21 IMPRESSION: Perihepatic fluid as well as fluid in the pericholecystic region. Correlation with ultrasound of gallbladder recommended if clinically indicated. Small amount of free fluid in the pelvis as well as in the cul-de-sac and the left paracolic gutter. Sigmoid diverticulosis. Electronically Signed: Luis Boogie MD at 9:26 EDT , Gallbladder Ultrasound 09/03/23 09:30 IMPRESSION: Small amount of perihepatic fluid. Hepatomegaly. Gallbladder wall thickening. Pericholecystic fluid. Electronically Signed: Luis Boogie MD at 11:08 EDT , Abdomen CT 09/03/23 14:02 IMPRESSION: Sigmoid diverticulosis and possible mild degree of sigmoid diverticulitis. Perihepatic fluid as well as fluid in the paracolic gutters and pelvis. The remainder of the examination is unchanged. 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 Discharge Plan Triage Chief Complaint: Abd Pain ED Provider: Janeen Baxter Dx/Rx/DC Orders Clinical Impression: Diverticulitis, Intra-abdominal fluid, Abdominal pain, shelter (current) use of anticoagulants Instructions: ED Diverticulitis Prescriptions: New metronidazole 500 mg tablet 500 mg PO Q8H 7 Days Qty: 21 0RF ciprofloxacin HCl 500 mg tablet 500 mg PO BID Qty: 14 0RF No Action duloxetine [Cymbalta] 60 mg capsule,delayed release(DR/EC) 120 mg PO DAILY metformin 500 mg tablet 250 mg PO DAILY metoprolol tartrate 25 mg tablet 25 mg PO BID Qty: 180 3RF acetaminophen [Tylenol Extra Strength] 500 mg tablet 1,000 mg PO DAILY gabapentin 100 mg capsule 100 mg PO BID gabapentin 100 mg capsule 300 mg PO QHS albuterol sulfate [Ventolin HFA] 90 mcg/actuation HFA aerosol inhaler 2 puff INHALATION Q4H PRN (Reason: shortness of breath or wheezing) Qty: 8.5 6RF budesonide-formoterol [Symbicort] 160-4.5 mcg/actuation HFA aerosol inhaler 2 puff inhalation BID Qty: 10.2 6RF fluticasone propionate [Flonase Allergy Relief] 50 mcg/actuation spray,suspension 2 spray INTRANASAL QDAY Qty: 1 3RF Rx Instructions: administer into each nostril ipratropium-albuterol 0.5 mg-3 mg(2.5 mg base)/3 mL solution for nebulization 3 ml inhalation Q4H PRN PRN (Reason: SOB &/OR WHEEZING) Qty: 180 6RF loratadine 10 mg tablet 10 mg PO DAILY Qty: 90 3RF azelastine 137 mcg (0.1 %) aerosol,spray 2 spray intranasal BID Qty: 30 3RF Rx Instructions: administer into each nostril clobetasol 0.05 % cream 1 applic topical BID PRN magnesium oxide 500 mg tablet 500 mg PO DAILY (DME) PEP device See Rx Instructions .ROUTE .MEDSUPPLY Qty: 1 0RF Rx Instructions: with training multivitamin with folic acid 1 TABLET tablet 1 tab PO DAILY omeprazole 40 MG capsule,delayed release(DR/EC) 40 mg PO DAILY melatonin 5 MG capsule 5 mg PO QHS cholecalciferol (vitamin D3) 1,250 mcg (50,000 unit) capsule 1,250 mcg PO QWEEK Patient Comments: TAKE 1 CAPSULE BY MOUTH ONCE A WEEK diphenhydramine HCl [Benadryl] 25 MG capsule 25 mg PO QHS diphenoxylate-atropine [Lomotil] 2.5-0.025 mg tablet 1 tab PO 4X/DAY PRN PRN (Reason: diarrhea) 5 Days Qty: 20 0RF lorazepam [Ativan] 1 mg tablet 1 mg PO TID PRN (Reason: Muscle cramps/spasms) 5 Days Qty: 15 0RF metoclopramide HCl [Reglan] 10 mg tablet 10 mg PO Q6H PRN (Reason: nausea and vomiting) Qty: 14 0RF warfarin 5 mg tablet 2.5 mg PO DAILY Protocol: Dose Management Condition: Thursday Dose/Route: 5 mg Instruction: 1 x 5 mg tablet Condition: Thursday Dose/Route: 5 mg Instruction: 1 x 5 mg tablet Condition: Thursday Dose/Route: 5 mg Instruction: 1 x 5 mg tablet Condition: Thursday Dose/Route: 5 mg Instruction: 1 x 5 mg tablet Condition: Dose/Route: 5 mg Instruction: 1 x 5 mg tablet Condition: Thursday Dose/Route: 5 mg Instruction: 1 x 5 mg tablet Condition: Thursday Dose/Route: 5 mg Instruction: 1 x 5 mg tablet Protocol Text: Adjustment Start Date: 09/03/23 INR Value: 3.2 INR Date: 09/03/23 Recheck Date: 09/08/23 Rx Instructions: THURSDAY AND THURSDAY AND THURSDAY warfarin 7.5 mg tablet 7.5 mg PO .COMPLEX Qty: 90 3RF Protocol: Dose Management Condition: Thursday Dose/Route: 5 mg Instruction: 1 x 5 mg tablet Condition: Thursday Dose/Route: 5 mg Instruction: 1 x 5 mg tablet Condition: Thursday Dose/Route: 5 mg Instruction: 1 x 5 mg tablet Condition: Thursday Dose/Route: 5 mg Instruction: 1 x 5 mg tablet Condition: Dose/Route: 5 mg Instruction: 1 x 5 mg tablet Condition: Thursday Dose/Route: 5 mg Instruction: 1 x 5 mg tablet Condition: Thursday Dose/Route: 5 mg Instruction: 1 x 5 mg tablet Protocol Text: Adjustment Start Date: 09/03/23 INR Value: 3.2 INR Date: 09/03/23 Recheck Date: 09/08/23 Rx Instructions: 7.5 mg orally Thursday through Thursday (takes a 2.5 mg tablet on Thursday and Thursday); or as directed for dose changes warfarin 5 mg tablet 5 mg PO .COMPLEX Qty: 90 4RF Protocol: Dose Management Condition: Thursday Dose/Route: 5 mg Instruction: 1 x 5 mg tablet Condition: Thursday Dose/Route: 5 mg Instruction: 1 x 5 mg tablet Condition: Thursday Dose/Route: 5 mg Instruction: 1 x 5 mg tablet Condition: Thursday Dose/Route: 5 mg Instruction: 1 x 5 mg tablet Condition: Dose/Route: 5 mg Instruction: 1 x 5 mg tablet Condition: Thursday Dose/Route: 5 mg Instruction: 1 x 5 mg tablet Condition: Thursday Dose/Route: 5 mg Instruction: 1 x 5 mg tablet Protocol Text: Adjustment Start Date: 09/03/23 INR Value: 3.2 INR Date: 09/03/23 Recheck Date: 09/08/23 Rx Instructions: 5 mg PO take 1 tab by mouth daily or as directed; torsemide 20 mg tablet 20 mg PO DAILY Qty: 90 3RF potassium chloride [Klor-Con M20] 20 mEq tablet,ER particles/crystals 20 meq PO .COMPLEX Qty: 270 3RF Rx Instructions: Increase back up to one tablet by mouth three times daily Primary Care Provider: Marcia Ramesh Referrals: Jose L Long DO [Med Staff - Active Staff] - As soon as possible Marcia Ramesh, VICE PRESIDENT & GENERAL MANAGER [employer] [Primary Care Provider] - Activity Restrictions/Additional Instructions: Your CT showed findings of fluid in your abdomen of uncertain clinical significance. In addition you have findings consistent with early diverticulitis. Replaced with antibiotics for this. If you have itching you may take Benadryl for it. The antibiotics might affect your INR so I do recommend you have it rechecked next week. Your INR today was 3.2. If you have progression worsening symptoms please return to the emergency room. You have been referred to a GI doctor for evaluation of this free fluid in abdomen but we also recommend following up closely with your family doctor in the meantime. Print Language: Nauruan Disposition Disposition: Home, Self Care Discharge Date/Time: 09/03/23 15:26
[2023-09-03 07:27] LABS: Bacteria 0 SEEN /hpf (None Seen); Mucous, Urine 0 SEEN /hpf (<or=2+); Red Blood Cells-Urine 0 SEEN /hpf (0-5)
[2023-09-03] MEDS: morphine 8 MG/ML Syringe IV (07:38)
[2023-09-03] MEDS: Ondansetron 4 MG/2 ML Vial IV (07:38)
[2023-09-03] MEDS: 0.9% Normal Saline (500mL Bag) 500 ML 999 ML IV (07:38)
[2023-09-03 07:44] LABS: Absolute Lymphocyte Count 1.72 X10^3/uL (0.83-4.51); Basophil# 0.02 X10^3/uL; Basophil% 0.3 % (0-1); Eosinophil# 0.06 X10^3/uL; Eosinophils% 0.8 % (0-5); Hematocrit 38.6 % (37-47); Hemoglobin 12.4 g/dL (12.0-15.0); Lymphocyte # 1.72 X10^3/ul (0.83-4.51); Lymphocyte % 22.4 % (19-41); Mean Corp Hgb Conc 32.1 g/dL (32-36); Mean Corpuscular Hgb 30.5 pg (27.0-32.0); Mean Corpuscular Volume 94.8 fL (81-99); Mean Platelet Vol. 10.8 fl (6.2-12.0); Monocyte# 0.88 X10^3/uL; Monocyte% 11.4 % (0-10); NRBC Flagged by Analyzer 0 % (0-5); Neutrophil # 4.98 X10^3/uL (2.7-7.7); Neutrophil % 64.7 % (47-70); Platelet Count 233 K/mm3 (150-450); RBC Distribution Width CV 15.8 % (11.6-14.6); RBC Distribution Width SD 55.1 fl (35.1-43.9); Red Blood Count 4.07 M/mm3 (4.2-5.4); White Blood Count 7.7 K/mm3 (4.4-11.0)
[2023-09-03 07:47] LABS: International Normalized Ratio 3.2; Prothrombin Time (Protime)PT. 32.1 SECONDS (11.7-14.9)
[2023-09-03 07:50] LABS: Color, Urine Yellow (Yellow); Glucose, Dipstick Normal (Normal); Ketone-Dipstick Negative (Negative); Leukocyte Esterase-Dipstick 25 /ul (Negative); Nitrite-Dipstick Negative (Negative); Occult Blood-Urine 10 /ul (Negative); Protein-Dipstick 100 mg/dl (Negative); Urine Bilirubin Dipstick Negative (Negative); Urine Clarity Clear (Clear); Urine Urobilinogen 1 mg/dl (Normal); Urine pH 6.5 (5.0 - 8.0)
[2023-09-03 08:05] LABS: ALB/GLOB Ratio 0.8 RATIO (0.9-2.4); AST(SGOT) 24 U/L (15-37); Alanine Aminotransfer ALT/SGPT 19 U/L (13-56); Albumin, Serum 3.4 g/dL (3.2-5.0); Alkaline Phosphatase 52 U/L (45-117); Anion Gap 4 (5-15); BUN 18 mg/dL (7-18); BUN/Creat Ratio 17.5 RATIO (10-20); Chloride 103 mmol/L (98-107); Creatinine, Serum 1.03 mg/dL (0.55-1.02); EST Glomerular Filtration Rate 58 mL/min (>60); Est Glom Filt Rate - Afr Amer 70 mL/min (>60); Estimated Creatinine Clearance 76.86 ml/min; Globulin 4.3 g/dL (2.2-4.2); Glucose 122 mg/dL (74-106); Potassium 3.8 mmol/L (3.5-5.1); Protein, Total 7.7 g/dL (6.4-8.2); Sodium Level 137 mmol/L (136-145)
[2023-09-03 08:11] LABS: Squamous Epithelial Cells - UA 0-5 SEEN /hpf (5-10); White Blood Cells 0-5 SEEN /hpf (0-5)
--- NOTE | 2023-09-03 09:30 | US_ITS ---
STUDY: ABDOMINAL ULTRASOUND - RIGHT UPPER QUADRANT REASON FOR VISIT: Female, 63 years old abd pain, abdnormal CT TECHNIQUE: Ultrasound evaluation of the right upper quadrant was performed with real-time and static shea-scale imaging. TECHNICAL QUALITY: Adequate. COMPARISON: Comparison is made with prior CT scan the abdomen dated September 03, 2023 and prior sonogram of the abdomen dated August 12, 2018. FINDINGS: Liver: The liver is enlarged and measures 19.5 cm. There is normal echogenicity of the liver. The bile ducts are within normal limits. There is hepatic color flow. The direction of portal flow is hepatopetal. There is no demonstrated mass lesion. Small amount of perihepatic fluid. Gallbladder: Normal distended gallbladder. The gallbladder wall is thickened and measures 4.5 mm. There is a negative sonographic Grande''s sign. There is pericholecystic fluid. There are no gallstones. Common Bile Duct (C.B.D.): The common bile duct measures 2.9 mm. Pancreas: Normal size of the head, body and tail of the pancreas. There is increased echogenicity of the pancreas. There is no demonstrated pancreatic mass or cyst. Right Kidney: Normal size of the right kidney. The right kidney measures 11.3 cm x 6 x 4 cm. Normal renal cortex. The right cortex measures 1.3 cm. There is no demonstrated renal mass or cyst. There is no right hydronephrosis. US/Gallbladder IMPRESSION: Small amount of perihepatic fluid. Hepatomegaly. Gallbladder wall thickening. Pericholecystic fluid. Electronically Signed: Luis Boogie MD at 11:08 EDT ,
[2023-09-03] MEDS: DiphenhydrAMINE 50 MG/ML Syringe 25 MG IV (10:53)
[2023-09-03 12:52] LABS: BNP,B-Type NATRIURETIC PEPTIDE 540.8 pg/mL (0-100)
--- NOTE | 2023-09-03 14:02 | CT_ITS ---
STUDY: CT ABDOMEN AND PELVIS WITHOUT CONTRAST REASON FOR EXAM: Female, 63 years old. Abd pain, + free fluid RADIATION DOSAGE (If Supplied By Facility): CTDIvol = ( 23.73 ) mGy, DLP = ( 1280.86 ) mGycm TECHNIQUE: Transaxial images were obtained from the dome of the diaphragm to the symphysis pubis without oral contrast, and without intravenous contrast. Sagittal and coronal images were reconstructed. Individualized dose optimization techniques were used for this CT. COMPARISON: Comparison is made with prior study done earlier in the day. FINDINGS: Small bilateral pleural effusions right greater than left with right basilar atelectasis. Coronary artery calcification. Prior mitral valve replacement. Borderline hepatomegaly. Small amount of perihepatic fluid as well as fluid in the bilateral paracolic gutters and pelvis. Low-level densities are seen within the gallbladder lumen suggestive possible sludge. Normal spleen. Normal pancreas. Normal bilateral adrenal glands. Normal right kidney. Normal left kidney. Normal visualized stomach. Normal small intestine. Diffuse sigmoid diverticulosis. Mild degree of increased markings in the surrounding sigmoid mesentery. Mild diverticulitis should be ruled out. There is non-visualization of the appendix. Normal abdominal aorta. Normal inferior vena cava. Normal retroperitoneum. Normal urinary bladder. There is absence of the uterus consistent with a prior hysterectomy. Normal abdominal wall. There are loss of height of the L3 vertebrae. Degenerative changes of the visualized lumbar spine. CT/Abdomen/Pel W ORAL Cont Only IMPRESSION: Sigmoid diverticulosis and possible mild degree of sigmoid diverticulitis. Perihepatic fluid as well as fluid in the paracolic gutters and pelvis. The remainder of the examination is unchanged. Electronically Signed: Luis Boogie MD at 14:19 EDT ,
[2023-09-03] MEDS: metroNIDAZOLE 500 MG Tablet PO (15:25)
[2023-09-03] MEDS: Ciprofloxacin 500 MG Tablet PO (15:25)
== END 2023-09-03 15:26 | disposition home or self-care (01) ==
PROVIDERS: Emergency Provider Emergency Medicine; PCP Nurse Practitioner Family; Visit Provider Emergency Medicine
DX: K57.92 Diverticulitis of intestine, part unspecified, without perforation or abscess without bleeding (principal); I50.32 Chronic diastolic (congestive) heart failure; I11.0 Hypertensive heart disease with heart failure; I48.0 Paroxysmal atrial fibrillation; E78.5 Hyperlipidemia, unspecified; Z79.01 Long term (current) use of anticoagulants; G47.33 Obstructive sleep apnea (adult) (pediatric); Z99.89 Dependence on other enabling machines and devices; Z90.710 Acquired absence of both cervix and uterus; Z85.42 Personal history of malignant neoplasm of other parts of uterus; Z79.84 Long term (current) use of oral hypoglycemic drugs; F41.9 Anxiety disorder, unspecified; Z90.722 Acquired absence of ovaries, bilateral; Z98.51 Tubal ligation status; Z95.2 Presence of prosthetic heart valve; R18.8 Other ascites; R10.9 Unspecified abdominal pain
CPT/HCPCS: 74176; 74177; 76705; 80053; 81001; 83880; 85025; 85610; 96361; 96374; 96375; 99284; Q9967; A4216; J2405

== ENCOUNTER 2023-09-16 14:21 | Outpatient (RCR) | payer OTHER, SELFPAY ==
[2023-09-07 09:31] VITALS: BMI 39.5
[2023-09-08 11:47] LABS: Prothrombin Time (Protime)PT. 41.6 SECONDS (11.7-14.9)
[2023-09-08 11:50] LABS: International Normalized Ratio 4.4
[2023-09-08 12:51] LABS: BNP,B-Type NATRIURETIC PEPTIDE 395.3 pg/mL (0-100)
[2023-09-16 15:16] LABS: International Normalized Ratio 3.1; Prothrombin Time (Protime)PT. 31.5 SECONDS (11.7-14.9)
== END 2023-09-16 18:00 | disposition home or self-care (01) ==
LOC: LAB 14:21
PROVIDERS: Nurse Practitioner Family; PCP Nurse Practitioner Family; Referring Provider Internal Medicine Cardiovascular Disease; Visit Provider Internal Medicine Cardiovascular Disease
DX: Z95.2 Presence of prosthetic heart valve (principal); Z79.01 Long term (current) use of anticoagulants; R18.8 Other ascites; R06.02 Shortness of breath
CPT/HCPCS: 36415; 83880; 85610

== ENCOUNTER 2023-10-06 13:15 | Emergency (ER) | payer OTHER, SELFPAY ==
[2023-10-06 13:15] VITALS: BP 150/57; PULSE 89; RESP 14; TEMP 35.7; O2SAT 92
--- NOTE | 2023-10-06 14:22 | ED.RN ---
IM JUST GOING HOME AND SUCK IT UP FOR ANOTHER NIGHT.
== END 2023-10-06 14:22 | disposition left against medical advice (07) ==
LOC: ED 14:26
PROVIDERS: PCP Nurse Practitioner Family
DX: Z00.00 Encounter for general adult medical examination without abnormal findings (principal)

== ENCOUNTER → 2023-10-06 | Outpatient (CLI) | payer OTHER, SELFPAY ==
--- NOTE | 2023-10-06 09:03 | ECHOCS_ITS ---
Reason For Study: DYSPNEA, VALVE REPLACEMENTS Procedure This was a 2D Doppler, Color Flow transthoracic echocardiogram. The study was technically difficult. Contrast injection was performed. Exam performed in department. Left Ventricle Normal LV size. Moderate concentric left ventricular hypertrophy. Left ventricular systolic function is normal. The left ventricular ejection fraction is 65 %. No regional wall motion abnormalities noted. Right Ventricle Normal RV size. Normal systolic function. Atria Normal left atrium. Normal right atrium. Mitral Valve Stable appearing mechanical mitral valve apparatus. Tricuspid Valve Normal tricuspid valve. Moderate (2+) tricuspid valve insufficiency. Pulmonary artery systolic pressure is 80 mmHg. Severe pulmonary hypertension. Aortic Valve Peak aortic valve gradient 39 mmHg. Mean aortic valve gradient 22 mmHg. Stable appearing mechanical aortic valve apparatus. Pulmonic Valve The pulmonic valve is not well visualized. Great Vessels Normal aortic root. The pulmonary artery is normal size. The inferior vena cava is dilated. Pericardium/Pleural No pericardial effusion. Medication 22 gauge I.V. with prn adaptor inserted into right arm. Diluted definity 2ml given slow IV push to enhance endocardial definition. MMode/2D Measurements & Calculations LVIDd: 4.6 cm IVSd: 1.7 cm LVOT diam: 1.6 cm LVIDs: 2.2 cm LVPWd: 1.4 cm RVDd: 4.6 cm FS: 52.0 % LVOT area: 1.9 cm2 Ao root diam: 2.5 cm LAV(MOD-bp): 76.5 ml LVAd ap4: 28.6 cm2 LAV(MOD-bp) Indexed: 33.8 ml/m2 LVLd ap4: 7.9 cm LAV(MOD-sp2): 81.8 ml EDV(MOD-sp4): 83.9 ml LAV(MOD-sp4): 65.2 ml EDV(sp4-el): 88.0 ml LVAs ap4: 17.4 cm2 LVLs ap4: 7.0 cm ESV(MOD-sp4): 36.8 ml ESV(sp4-el): 36.6 ml EF(MOD-sp4): 56.1 % EF(sp4-el): 58.4 % LVAd ap2: 34.4 cm2 SV(MOD-sp4): 47.1 ml SV(MOD-sp2): 77.3 ml LVLd ap2: 8.0 cm EDV(MOD-sp2): 118.0 ml EDV(sp2-el): 125.9 ml LVAs ap2: 18.0 cm2 LVLs ap2: 6.4 cm ESV(MOD-sp2): 40.7 ml ESV(sp2-el): 42.8 ml EF(MOD-sp2): 65.5 % SV(sp4-el): 51.4 ml LA dimension(2D): 5.3 cm LA A4 area: 23.0 cm2 RA A4 area: 17.7 cm2 TAPSE: 1.7 cm Doppler Measurements & Calculations Lat Peak E' Ej: 7.3 cm/sec Med Peak E' Ej: 6.7 cm/sec MV V2 max: 206.5 cm/sec MV max P.1 mmHg MV V2 mean: 87.6 cm/sec MV mean P.5 mmHg MV V2 VTI: 36.2 cm MVA(VTI): 1.5 cm2 Ao V2 max: 312.0 cm/sec LV V1 max: 139.3 cm/sec SV(LVOT): 53.5 ml Ao max P.3 mmHg LV V1 max P.8 mmHg Ao V2 mean: 220.2 cm/sec LV V1 mean P.6 mmHg Ao mean P.7 mmHg LV V1 mean: 102.5 cm/sec Ao V2 VTI: 56.6 cm LV V1 VTI: 28.3 cm AV (velocity ratio): 0.50 KERRY(I,D): 0.95 cm2 KERRY(V,D): 0.84 cm2 PA V2 max: 116.1 cm/sec TR max ej: 422.0 cm/sec PA max PG (full): 2.1 mmHg TR max P.2 mmHg ECHO/Echo Complete W/ Contrast Interpretation Summary Normal LV size. Left ventricular systolic function is normal. The left ventricular ejection fraction is 65 %. Stable appearing mechanical aortic valve apparatus. Stable appearing mechanical mitral valve apparatus. Pulmonary artery systolic pressure is 80 mmHg. Severe pulmonary hypertension. Compared to the previous the pulmonary pressures are more elevated and the grad ients across the prosthetic aortic valve is stable, and the mean transmitral valve gradient also appears to be stable at 4.5 mmHg. Ordering Physician: Guerrero Jason Referring Physician: Guerrero Jason Performed By: Nataliya Green RDCS
== END | disposition home or self-care (01) ==
LOC: CVS 09:00
PROVIDERS: Referring Provider Nurse Practitioner Family; Visit Provider Nurse Practitioner Family
DX: R06.00 Dyspnea, unspecified (principal); I48.0 Paroxysmal atrial fibrillation; Z95.2 Presence of prosthetic heart valve
CPT/HCPCS: 93306; Q9957; A4216; C8929

== ENCOUNTER 2023-10-14 11:26 | Outpatient (RCR) | payer OTHER, SELFPAY ==
[2023-10-05 04:16] VITALS: BMI 39.5
[2023-10-06 11:57] LABS: International Normalized Ratio 1.7; Prothrombin Time (Protime)PT. 19.8 SECONDS (11.7-14.9)
[2023-10-14 12:13] LABS: International Normalized Ratio 2.3; Prothrombin Time (Protime)PT. 25.1 SECONDS (11.7-14.9)
== END 2023-11-04 18:00 | disposition home or self-care (01) ==
LOC: LAB 11:26
PROVIDERS: PCP Nurse Practitioner Family; Referring Provider Internal Medicine Cardiovascular Disease; Visit Provider Internal Medicine Cardiovascular Disease
DX: Z95.2 Presence of prosthetic heart valve (principal); Z79.01 Long term (current) use of anticoagulants
CPT/HCPCS: 36415; 85610

== ENCOUNTER → 2023-10-16 | Outpatient (CLI) | payer OTHER, SELFPAY | END | disposition home or self-care (01) | LOC: PSN 08:00 | PROVIDERS: PCP Nurse Practitioner Family; Referring Provider Nurse Practitioner Family; Visit Provider Nurse Practitioner Family | DX: I48.0 Paroxysmal atrial fibrillation (principal); R06.09 Other forms of dyspnea; I44.7 Left bundle-branch block, unspecified | CPT/HCPCS: 93225; 93226 ==

== ENCOUNTER 2023-11-23 08:54 | Outpatient (RCR) | payer OTHER, SELFPAY ==
[2023-11-04 23:11] VITALS: BMI 39.5
[2023-11-09 11:27] LABS: International Normalized Ratio 2.5; Prothrombin Time (Protime)PT. 27.1 SECONDS (11.7-14.9)
[2023-11-23 09:44] LABS: International Normalized Ratio 2.7; Prothrombin Time (Protime)PT. 28.7 SECONDS (11.7-14.9)
== END 2023-11-23 18:00 | disposition home or self-care (01) ==
LOC: LAB 08:54
PROVIDERS: PCP Nurse Practitioner Family; Referring Provider Internal Medicine Cardiovascular Disease; Visit Provider Internal Medicine Cardiovascular Disease
DX: Z95.2 Presence of prosthetic heart valve (principal); Z79.01 Long term (current) use of anticoagulants
CPT/HCPCS: 36415; 85610

== ENCOUNTER → 2023-11-24 | Outpatient (CLI) | payer OTHER, SELFPAY ==
[2023-11-24 12:49] LABS: Absolute Lymphocyte Count 1.52 X10^3/uL (0.83-4.51); Absolute Neutrophil Count 2.7 X10^3/uL (2.0-7.7); Basophil# 0.03 X10^3/uL; Basophil% 0.6 % (0-1); Eosinophil# 0.12 X10^3/uL; Eosinophils% 2.4 % (0-5); Hematocrit 36.5 % (37-47); Hemoglobin 11.5 g/dL (12.0-15.0); Lymphocyte # 1.52 X10^3/ul (0.83-4.51); Lymphocyte % 30.4 % (19-41); Mean Corp Hgb Conc 31.5 g/dL (32-36); Mean Corpuscular Hgb 30.1 pg (27.0-32.0); Mean Corpuscular Volume 95.5 fL (81-99); Mean Platelet Vol. 10.6 fl (6.2-12.0); Monocyte# 0.59 X10^3/uL; Monocyte% 11.8 % (0-10); NRBC Flagged by Analyzer 0 % (0-5); Neutrophil # 2.73 X10^3/uL (2.7-7.7); Neutrophil % 54.6 % (47-70); Platelet Count 166 K/mm3 (150-450); RBC Distribution Width CV 16.2 % (11.6-14.6); RBC Distribution Width SD 56.8 fl (35.1-43.9); Red Blood Count 3.82 M/mm3 (4.2-5.4)
[2023-11-24 13:35] LABS: ALB/GLOB Ratio 0.7 RATIO (0.9-2.4); AST(SGOT) 23 U/L (15-37); Alanine Aminotransfer ALT/SGPT 21 U/L (13-56); Albumin, Serum 3.4 g/dL (3.2-5.0); Alkaline Phosphatase 63 U/L (45-117); Anion Gap 7 (5-15); BUN 19 mg/dL (7-18); BUN/Creat Ratio 21.4 RATIO (10-20); Chloride 102 mmol/L (98-107); Cholesterol 183 mg/dL (200); Creatinine, Serum 0.89 mg/dL (0.55-1.02); EST Glomerular Filtration Rate 69 mL/min (>60); Est Glom Filt Rate - Afr Amer 83 mL/min (>60); Globulin 4.8 g/dL (2.2-4.2); Glucose 108 mg/dL (74-106); High Density Lipoprotein 32 mg/dL; Potassium 3.7 mmol/L (3.5-5.1); Protein, Total 8.2 g/dL (6.4-8.2); Sodium Level 137 mmol/L (136-145); Triglycerides 126 mg/dL; Very Low Density Lipoprotein 25 mg/dL (5-40)
== END | disposition home or self-care (01) ==
LOC: VSLAB 11:37
PROVIDERS: PCP Nurse Practitioner Family; Visit Provider Nurse Practitioner Family
DX: E78.5 Hyperlipidemia, unspecified (principal); E11.65 Type 2 diabetes mellitus with hyperglycemia
CPT/HCPCS: 36415; 80053; 80061; 82043; 85025

== ENCOUNTER 2023-12-24 10:11 | Outpatient (RCR) | payer OTHER, SELFPAY ==
[2023-12-06 03:17] VITALS: BMI 39.5
[2023-12-24 11:55] LABS: International Normalized Ratio 3.1; Prothrombin Time (Protime)PT. 31.8 SECONDS (11.7-14.9)
== END 2023-12-24 18:00 | disposition home or self-care (01) ==
LOC: LAB 10:11
PROVIDERS: PCP Nurse Practitioner Family; Referring Provider Internal Medicine Cardiovascular Disease; Visit Provider Internal Medicine Cardiovascular Disease
DX: Z95.2 Presence of prosthetic heart valve (principal); Z79.01 Long term (current) use of anticoagulants
CPT/HCPCS: 36415; 85610

== ENCOUNTER 2024-02-02 11:36 | Outpatient (RCR) | payer OTHER, SELFPAY ==
[2024-01-05 04:47] VITALS: BMI 39.5
[2024-01-20 09:25] LABS: International Normalized Ratio 3.8; Prothrombin Time (Protime)PT. 37.3 SECONDS (11.7-14.9)
[2024-02-02 12:11] LABS: Prothrombin Time (Protime)PT. 30.7 SECONDS (11.7-14.9)
== END 2024-02-04 23:59 ==
LOC: PAVLAB 11:36
PROVIDERS: PCP Nurse Practitioner Family; Referring Provider Internal Medicine Cardiovascular Disease; Visit Provider Internal Medicine Cardiovascular Disease
DX: Z95.2 Presence of prosthetic heart valve (principal); Z79.01 Long term (current) use of anticoagulants
CPT/HCPCS: 36415; 85610

== ENCOUNTER → 2024-02-04 | Outpatient (CLI) | payer OTHER, SELFPAY ==
[2024-02-04 08:35] LABS: Absolute Lymphocyte Count 1.07 X10^3/uL (0.83-4.51); Absolute Neutrophil Count 4.1 X10^3/uL (2.0-7.7); Basophil# 0.02 X10^3/uL; Basophil% 0.3 % (0-1); Eosinophil# 0.12 X10^3/uL; Hemoglobin 10.9 g/dL (12.0-15.0); Lymphocyte # 1.07 X10^3/ul (0.83-4.51); Lymphocyte % 17.5 % (19-41); Mean Corp Hgb Conc 32.1 g/dL (32-36); Mean Corpuscular Hgb 30.6 pg (27.0-32.0); Mean Corpuscular Volume 95.5 fL (81-99); Mean Platelet Vol. 10.4 fl (6.2-12.0); Monocyte# 0.73 X10^3/uL; Monocyte% 11.9 % (0-10); NRBC Flagged by Analyzer 0 % (0-5); Neutrophil # 4.14 X10^3/uL (2.7-7.7); Neutrophil % 67.8 % (47-70); Platelet Count 194 K/mm3 (150-450); RBC Distribution Width CV 15.7 % (11.6-14.6); RBC Distribution Width SD 55.5 fl (35.1-43.9); Red Blood Count 3.56 M/mm3 (4.2-5.4); White Blood Count 6.1 K/mm3 (4.4-11.0)
[2024-02-04 08:48] LABS: Anion Gap 6 (5-15); BUN 21 mg/dL (7-18); BUN/Creat Ratio 20.4 RATIO (10-20); Chloride 99 mmol/L (98-107); Creatinine, Serum 1.03 mg/dL (0.55-1.02); EST Glomerular Filtration Rate 58 mL/min (>60); Est Glom Filt Rate - Afr Amer 70 mL/min (>60); Glucose 136 mg/dL (74-106); Potassium 3.7 mmol/L (3.5-5.1); Sodium Level 136 mmol/L (136-145)
[2024-02-04 08:49] LABS: BNP,B-Type NATRIURETIC PEPTIDE 473.9 pg/mL (0-100)
[2024-02-04 16:32] LABS: Xtra Tube EP Lab EXTRA TUBE
== END | disposition home or self-care (01) ==
PROVIDERS: PCP Nurse Practitioner Family; Referring Provider Nurse Practitioner Gerontology; Visit Provider Nurse Practitioner Gerontology
DX: R06.02 Shortness of breath (principal); I50.32 Chronic diastolic (congestive) heart failure; R06.09 Other forms of dyspnea; Z79.01 Long term (current) use of anticoagulants
CPT/HCPCS: 36415; 80048; 83880; 85025

== ENCOUNTER 2024-02-10 10:45 | Inpatient (IN) | payer OTHER, SELFPAY ==
[2024-02-10] VITALS (19 sets, daily range): BP systolic 112–138; BP diastolic 52–79; PULSE 67–96; RESP 15–27; TEMP 36.4–36.7; O2SAT 88–99; BMI 38.8; BMI 38.0
[2024-02-10 11:12] LABS: Absolute Lymphocyte Count 1.28 X10^3/uL (0.83-4.51); Absolute Neutrophil Count 4.1 X10^3/uL (2.0-7.7); Basophil# 0.04 X10^3/uL; Basophil% 0.6 % (0-1); Eosinophil# 0.14 X10^3/uL; Eosinophils% 2.2 % (0-5); Hematocrit 34.5 % (37-47); Lymphocyte # 1.28 X10^3/ul (0.83-4.51); Lymphocyte % 19.9 % (19-41); Mean Corp Hgb Conc 31.9 g/dL (32-36); Mean Corpuscular Hgb 29.9 pg (27.0-32.0); Mean Corpuscular Volume 93.8 fL (81-99); Mean Platelet Vol. 10.8 fl (6.2-12.0); Monocyte# 0.87 X10^3/uL; Monocyte% 13.6 % (0-10); NRBC Flagged by Analyzer 0 % (0-5); Neutrophil # 4.07 X10^3/uL (2.7-7.7); Neutrophil % 63.4 % (47-70); Platelet Count 220 K/mm3 (150-450); RBC Distribution Width CV 15.9 % (11.6-14.6); RBC Distribution Width SD 54.7 fl (35.1-43.9); Red Blood Count 3.68 M/mm3 (4.2-5.4); White Blood Count 6.4 K/mm3 (4.4-11.0)
[2024-02-10 11:28] LABS: International Normalized Ratio 3.2; Prothrombin Time (Protime)PT. 32.6 SECONDS (11.7-14.9)
[2024-02-10 11:31] LABS: Anion Gap 6 (5-15); BUN 21 mg/dL (7-18); BUN/Creat Ratio 20.2 RATIO (10-20); Calcium,Total 8.6 mg/dL (8.5-10.1); Chloride 100 mmol/L (98-107); Creatinine, Serum 1.04 mg/dL (0.55-1.02); EST Glomerular Filtration Rate 57 mL/min (>60); Est Glom Filt Rate - Afr Amer 69 mL/min (>60); Glucose 102 mg/dL (74-106); Potassium 3.6 mmol/L (3.5-5.1); Sodium Level 136 mmol/L (136-145); Troponin-I HS 14 pg/mL (3.0-54.0)
[2024-02-10] MEDS: Furosemide 100 MG/10 ML Vial 80 MG IV (13:45)
[2024-02-10] MEDS: 0.9% Saline Lock 10 ML Syringe IV (21:02)
[2024-02-10] MEDS: Ipratropium/Albuterol Sulfate 3 ML AMPUL.NEB INHALATION (22:37)
[2024-02-10] MEDS: Furosemide 500 MG in Empty Viaflex 50 mL 1 EACH CONT INF (22:41)
[2024-02-10] MEDS: Metoprolol Tartrate 25 MG Tablet PO (22:43)
[2024-02-10] MEDS: Gabapentin 300 MG Capsule PO (22:43)
[2024-02-10] MEDS: MELATONIN 3 MG TABLET PO (22:47)
[2024-02-11] VITALS (12 sets, daily range): BP systolic 106–131; BP diastolic 65–75; PULSE 55–82; RESP 16–20; TEMP 36.2–36.8; O2SAT 96–100; BMI 38.1
[2024-02-11] MEDS: Acetaminophen 325 MG Tablet 650 MG PO ×2 (00:25→10:28)
[2024-02-11 07:10] LABS: Absolute Lymphocyte Count 1.26 X10^3/uL (0.83-4.51); Absolute Neutrophil Count 2.5 X10^3/uL (2.0-7.7); Basophil# 0.03 X10^3/uL; Basophil% 0.7 % (0-1); Eosinophil# 0.17 X10^3/uL; Eosinophils% 3.7 % (0-5); Hematocrit 32.9 % (37-47); Hemoglobin 10.3 g/dL (12.0-15.0); Lymphocyte # 1.26 X10^3/ul (0.83-4.51); Lymphocyte % 27.8 % (19-41); Mean Corp Hgb Conc 31.3 g/dL (32-36); Mean Corpuscular Hgb 29.9 pg (27.0-32.0); Mean Corpuscular Volume 95.4 fL (81-99); Monocyte# 0.57 X10^3/uL; Monocyte% 12.6 % (0-10); NRBC Flagged by Analyzer 0 % (0-5); Neutrophil # 2.48 X10^3/uL (2.7-7.7); Neutrophil % 54.5 % (47-70); Platelet Count 202 K/mm3 (150-450); RBC Distribution Width CV 15.9 % (11.6-14.6); RBC Distribution Width SD 55.7 fl (35.1-43.9); Red Blood Count 3.45 M/mm3 (4.2-5.4); White Blood Count 4.5 K/mm3 (4.4-11.0)
[2024-02-11 07:32] LABS: International Normalized Ratio 3.3
[2024-02-11] MEDS: Ipratropium/Albuterol Sulfate 3 ML AMPUL.NEB INHALATION ×4 (07:33→20:17)
[2024-02-11] MEDS: Budesonide Respules 0.5 MG/2 ML AMPUL.NEB. INHALATION ×2 (07:33→20:17)
[2024-02-11 07:44] LABS: ALB/GLOB Ratio 0.7 RATIO (0.9-2.4); AST(SGOT) 21 U/L (15-37); Alanine Aminotransfer ALT/SGPT 14 U/L (13-56); Albumin, Serum 3.2 g/dL (3.2-5.0); Alkaline Phosphatase 74 U/L (45-117); Anion Gap 4 (5-15); BUN 20 mg/dL (7-18); BUN/Creat Ratio 20.2 RATIO (10-20); Calcium,Total 8.4 mg/dL (8.5-10.1); Chloride 98 mmol/L (98-107); Creatinine, Serum 0.99 mg/dL (0.55-1.02); EST Glomerular Filtration Rate 61 mL/min (>60); Est Glom Filt Rate - Afr Amer 73 mL/min (>60); Estimated Creatinine Clearance 76.42 ml/min; Globulin 4.6 g/dL (2.2-4.2); Glucose 121 mg/dL (74-106); Magnesium 2.1 mg/dL (1.6-2.6); Potassium 3.1 mmol/L (3.5-5.1); Protein, Total 7.8 g/dL (6.4-8.2); Sodium Level 136 mmol/L (136-145)
[2024-02-11] MEDS: Pantoprazole Sodium 40 MG Tablet PO (10:18)
[2024-02-11] MEDS: Loratadine 10 MG Tablet PO (10:18)
[2024-02-11] MEDS: Metoprolol Tartrate 25 MG Tablet PO ×2 (10:18→20:08)
[2024-02-11] MEDS: DULoxetine Hcl 60 MG Capsule 120 MG PO (10:18)
[2024-02-11] MEDS: Potassium Chloride Oral Tablet 20 MEQ 40 MEQ PO (10:19)
[2024-02-11] MEDS: Gabapentin 300 MG Capsule PO ×2 (10:28→20:09)
[2024-02-11] MEDS: 0.9% Saline Lock 10 ML Syringe IV (10:30)
[2024-02-11] MEDS: Potassium Chloride Oral Tablet 20 MEQ PO (18:30)
[2024-02-12] VITALS (13 sets, daily range): BP systolic 113–124; BP diastolic 68–80; PULSE 68–88; RESP 16–20; TEMP 36.4–36.9; O2SAT 94–100; BMI 38.1
[2024-02-12] MEDS: Albuterol 2.5 MG/3 ML VIAL.NEB. INHALATION (03:55)
[2024-02-12] MEDS: Furosemide 500 MG in Empty Viaflex 50 mL 1 EACH CONT INF (05:57)
[2024-02-12] MEDS: Budesonide Respules 0.5 MG/2 ML AMPUL.NEB. INHALATION ×2 (07:46→21:02)
[2024-02-12] MEDS: Ipratropium/Albuterol Sulfate 3 ML AMPUL.NEB INHALATION ×4 (07:46→21:02)
[2024-02-12 08:04] LABS: Absolute Lymphocyte Count 1.23 X10^3/uL (0.83-4.51); Absolute Neutrophil Count 3.7 X10^3/uL (2.0-7.7); Basophil# 0.02 X10^3/uL; Basophil% 0.3 % (0-1); Eosinophil# 0.14 X10^3/uL; Eosinophils% 2.4 % (0-5); Hematocrit 31.5 % (37-47); Hemoglobin 10.4 g/dL (12.0-15.0); Lymphocyte # 1.23 X10^3/ul (0.83-4.51); Lymphocyte % 20.8 % (19-41); Mean Corpuscular Hgb 31.1 pg (27.0-32.0); Mean Corpuscular Volume 94.3 fL (81-99); Mean Platelet Vol. 10.9 fl (6.2-12.0); Monocyte# 0.75 X10^3/uL; Monocyte% 12.7 % (0-10); NRBC Flagged by Analyzer 0 % (0-5); Neutrophil # 3.74 X10^3/uL (2.7-7.7); Neutrophil % 63.3 % (47-70); Platelet Count 213 K/mm3 (150-450); RBC Distribution Width CV 15.8 % (11.6-14.6); RBC Distribution Width SD 54.5 fl (35.1-43.9); Red Blood Count 3.34 M/mm3 (4.2-5.4); White Blood Count 5.9 K/mm3 (4.4-11.0)
[2024-02-12 08:32] LABS: International Normalized Ratio 3.4; Prothrombin Time (Protime)PT. 34.4 SECONDS (11.7-14.9)
[2024-02-12 08:59] LABS: Anion Gap 6 (5-15); BUN 17 mg/dL (7-18); BUN/Creat Ratio 18.1 RATIO (10-20); Calcium,Total 8.6 mg/dL (8.5-10.1); Chloride 94 mmol/L (98-107); Creatinine, Serum 0.94 mg/dL (0.55-1.02); EST Glomerular Filtration Rate 64 mL/min (>60); Est Glom Filt Rate - Afr Amer 78 mL/min (>60); Estimated Creatinine Clearance 80.48 ml/min; Glucose 116 mg/dL (74-106); Magnesium 1.8 mg/dL (1.6-2.6); Potassium 2.7 mmol/L (3.5-5.1); Sodium Level 137 mmol/L (136-145)
[2024-02-12] MEDS: Gabapentin 300 MG Capsule PO ×2 (10:47→20:54)
[2024-02-12] MEDS: Loratadine 10 MG Tablet PO (10:47)
[2024-02-12] MEDS: Metoprolol Tartrate 25 MG Tablet PO ×2 (10:47→20:53)
[2024-02-12] MEDS: Acetaminophen 325 MG Tablet 650 MG PO (10:47)
[2024-02-12] MEDS: DULoxetine Hcl 60 MG Capsule 120 MG PO (10:48)
[2024-02-12] MEDS: Pantoprazole Sodium 40 MG Tablet PO (10:48)
[2024-02-12] MEDS: Potassium Chloride Oral Tablet 20 MEQ 60 MEQ PO ×2 (11:39→17:08)
[2024-02-12] MEDS: Sodium Chloride 0.65% 1 SPRAY SPRAY.BTL 2 SPRAY NASAL (14:10)
== END 2024-02-13 02:08 | disposition short-term general hospital (02) | DRG 314 ==
LOC: ED 17:18 → PCU 20:00
PROVIDERS: Admitting Provider Internal Medicine; Emergency Provider Emergency Medicine; PCP Nurse Practitioner Family; Visit Provider Internal Medicine
DX: I27.20 Pulmonary hypertension, unspecified (principal); I50.33 Acute on chronic diastolic (congestive) heart failure; J96.91 Respiratory failure, unspecified with hypoxia; J90 Pleural effusion, not elsewhere classified; I13.0 Hypertensive heart and chronic kidney disease with heart failure and stage 1 through stage 4 chronic kidney disease, or unspecified chronic kidney disease; E66.9 Obesity, unspecified; I48.0 Paroxysmal atrial fibrillation; G62.9 Polyneuropathy, unspecified; E78.5 Hyperlipidemia, unspecified; J45.909 Unspecified asthma, uncomplicated; F32.A Depression, unspecified; Z95.2 Presence of prosthetic heart valve; E87.6 Hypokalemia; K21.9 Gastro-esophageal reflux disease without esophagitis; G47.33 Obstructive sleep apnea (adult) (pediatric); F41.9 Anxiety disorder, unspecified; N18.2 Chronic kidney disease, stage 2 (mild); Z68.38 Body mass index [BMI] 38.0-38.9, adult; Z79.51 Long term (current) use of inhaled steroids; Z79.01 Long term (current) use of anticoagulants; R09.02 Hypoxemia; Z99.89 Dependence on other enabling machines and devices; Z99.81 Dependence on supplemental oxygen; Z79.899 Other long term (current) drug therapy; Z90.722 Acquired absence of ovaries, bilateral; Z90.710 Acquired absence of both cervix and uterus; Z98.51 Tubal ligation status; R06.02 Shortness of breath; Z98.891 History of uterine scar from previous surgery
CPT/HCPCS: 36415; 71046; 80048; 80053; 83735; 83880; 84100; 84484; 85025; 85610; 93005; 94002; 94640; 94660; 94668; 99252; 99285; A4216; G0463; J1940

== ENCOUNTER 2024-03-02 15:31 | Outpatient (RCR) | payer OTHER, SELFPAY ==
[2024-02-05 00:48] VITALS: BMI 39.5
[2024-03-02 16:33] LABS: Prothrombin Time (Protime)PT. 30.6 SECONDS (11.7-14.9)
[2024-03-02 16:49] LABS: Anion Gap 7 (5-15); BUN 21 mg/dL (7-18); BUN/Creat Ratio 17.6 RATIO (10-20); Chloride 98 mmol/L (98-107); Creatinine, Serum 1.19 mg/dL (0.55-1.02); EST Glomerular Filtration Rate 49 mL/min (>60); Est Glom Filt Rate - Afr Amer 59 mL/min (>60); Glucose 51 mg/dL (74-106); Sodium Level 136 mmol/L (136-145)
== END 2024-03-05 23:59 ==
LOC: PAVLAB 15:31
PROVIDERS: Nurse Practitioner Gerontology; PCP Nurse Practitioner Family; Referring Provider Internal Medicine Cardiovascular Disease; Visit Provider Internal Medicine Cardiovascular Disease
DX: Z95.2 Presence of prosthetic heart valve (principal); Z79.01 Long term (current) use of anticoagulants; R06.09 Other forms of dyspnea; I50.32 Chronic diastolic (congestive) heart failure
CPT/HCPCS: 36415; 80048; 85610

== ENCOUNTER 2024-04-05 11:52 | Outpatient (RCR) | payer OTHER, SELFPAY ==
[2024-03-06 00:28] VITALS: BMI 39.5
--- NOTE | 2024-03-15 11:44 | RAD_ITS ---
EXAM: XR CHEST, 2 VIEWS CLINICAL INDICATION: SOB TECHNIQUE: Frontal and lateral views of the chest. COMPARISON: 02/10/2024. FINDINGS: LUNGS AND PLEURAL SPACES: Mild pulmonary vascular congestion. Minimal septal lines suspicious for mild pulmonary interstitial edema. Decreased right pleural effusion. No pneumothorax. HEART: Cardiomegaly. Metallic ring in the mitral valve is unchanged. MEDIASTINUM: Central airways and mediastinal contour are unremarkable. BONES/JOINTS: Intact sternal wires. No acute fracture. SOFT TISSUES: Unremarkable. RAD/Chest PA and Lateral IMPRESSION: 1. Suspicious CHF but overall minimal decrease in pulmonary interstitial edema. This may be chronic CHF. Advise clinical correlation. 2. Interval decrease in right pleural effusion. 3. Interval clearing of round pneumonia in the right midlung when compared to 02/10/2024. Electronically Signed: Guillermo Marquez MD at 8:49 EST ,
[2024-03-15 12:56] LABS: International Normalized Ratio 2.4; Prothrombin Time (Protime)PT. 26.4 SECONDS (11.7-14.9)
--- NOTE | 2024-04-05 12:22 | RAD_ITS ---
STUDY: X-RAY CHEST REASON FOR EXAM: Female, 63 years old. Shortness of breath and cough TECHNIQUE: PA and lateral views of the chest. COMPARISON: 03/15/2024 FINDINGS: Lungs are expanded with chronic interstitial changes, bibasilar atelectasis and nonspecific pleural thickening in the right hemithorax. Since there is been no significant change since the previous study, I suspect this is likely chronic Sternal cerclage wires and vascular clips are present from a prior sternotomy and coronary artery bypass graft procedure (CABG). Normal mediastinum and pauline. Normal visualized pulmonary arteries. Normal visualized aortic arch and descending thoracic aorta. There are diffuse degenerative changes of the visualized thoracic spine. There is degenerative osteoarthritis of the bilateral shoulders. There is no demonstrated abnormality of the visualized soft tissue structures of the upper abdomen. RAD/Chest PA and Lateral IMPRESSION: No interval change Electronically Signed: Felix Hong MD at 12:40 EST ,
[2024-04-05 12:36] LABS: Absolute Lymphocyte Count 1.44 X10^3/uL (0.83-4.51); Absolute Neutrophil Count 3.9 X10^3/uL (2.0-7.7); Basophil# 0.02 X10^3/uL; Basophil% 0.3 % (0-1); Eosinophil# 0.15 X10^3/uL; Eosinophils% 2.4 % (0-5); Hematocrit 37.1 % (37-47); Hemoglobin 11.5 g/dL (12.0-15.0); Lymphocyte # 1.44 X10^3/ul (0.83-4.51); Mean Corpuscular Hgb 29.7 pg (27.0-32.0); Mean Corpuscular Volume 95.9 fL (81-99); Mean Platelet Vol. 10.4 fl (6.2-12.0); Monocyte# 0.71 X10^3/uL; Monocyte% 11.4 % (0-10); NRBC Flagged by Analyzer 0 % (0-5); Neutrophil # 3.89 X10^3/uL (2.7-7.7); Neutrophil % 62.3 % (47-70); Platelet Count 208 K/mm3 (150-450); RBC Distribution Width CV 15.9 % (11.6-14.6); Red Blood Count 3.87 M/mm3 (4.2-5.4); White Blood Count 6.3 K/mm3 (4.4-11.0)
[2024-04-05 12:45] LABS: International Normalized Ratio 2.5; Prothrombin Time (Protime)PT. 27.7 SECONDS (11.7-14.9)
[2024-04-05 13:02] LABS: BNP,B-Type NATRIURETIC PEPTIDE 349.3 pg/mL (0-100)
[2024-04-05 13:22] LABS: Anion Gap 8 (5-15); BUN 24 mg/dL (7-18); BUN/Creat Ratio 22.6 RATIO (10-20); Calcium,Total 9.1 mg/dL (8.5-10.1); Chloride 98 mmol/L (98-107); Creatinine, Serum 1.06 mg/dL (0.55-1.02); EST Glomerular Filtration Rate 56 mL/min (>60); Est Glom Filt Rate - Afr Amer 68 mL/min (>60); Glucose 163 mg/dL (74-106); Potassium 3.6 mmol/L (3.5-5.1); Sodium Level 138 mmol/L (136-145)
== END 2024-04-05 18:00 | disposition home or self-care (01) ==
LOC: LAB 11:52
PROVIDERS: Physician Assistant Medical; PCP Nurse Practitioner Family; Referring Provider Internal Medicine Cardiovascular Disease; Visit Provider Internal Medicine Cardiovascular Disease
DX: Z95.2 Presence of prosthetic heart valve (principal); Z79.01 Long term (current) use of anticoagulants; I48.0 Paroxysmal atrial fibrillation
CPT/HCPCS: 36415; 71046; 80048; 83880; 85025; 85610

== ENCOUNTER → 2024-04-08 | Outpatient (CLI) | payer OTHER, SELFPAY ==
--- NOTE | 2024-04-08 08:52 | NM_ITS ---
CLINICAL: 63-year-old female with history of abdominal pain and nausea. RADIONUCLIDE HEPATOBILIARY SCINTIGRAPHY COMPARISON: Abdominal ultrasound report 09/03/2023 FINDINGS: Following the intravenous administration of 5.8 mCi of 99m Tc Mebrofenin, hepatobiliary images reveal: 1. Relatively prompt and homogeneous radiopharmaceutical concentration is noted by a normal sized liver. No parenchymal defects are identified. 2. Gallbladder activity is identified at 60 minutes post radiopharmaceutical administration. 3. Small intestinal tract is observed at 10 minutes following tracer injection. 4. Washout of the radiopharmaceutical by the hepatic parenchyma appears qualitatively normal. Cholecystokinin (0.02 ug/kg) was administered intravenously over a 30-minute period. The post CCK gallbladder ejection fraction calculated at 20 minutes following Cholecystokinin administration was noted to be < 5 % (normal greater than 35%). There is scintigraphic evidence of post cholecystokinin duodenal-gastric reflux. NJ/Hepatobilliary Img w/Pharm Int IMPRESSION: 1. ABNORMAL 99m Tc Mebrofenin hepatobiliary imaging examination with Cholecystokinin. A. A gallbladder ejection fraction calculated to be less than 35% following the administration of Cholecystokinin is consistent with the presence of functional hepatobiliary disease (gallbladder and/or sphincter of Oddi dyskinesia) and/or organic hepatobiliary disease (chronic acalculous cholecystitis and/or cystic duct syndrome) in patients with intermediate to high pretest probabilities of hepatobiliary illness. (Aline Martin et al, Journal of Nuclear Medicine 32:1695, 1990). B. There is scintigraphic evidence of post CCK duodenal-gastric reflux. (Ana et al, Nucl Med Tiffanie Jennifer Press pg. 35, 1980). Electronically Signed: Modesto Dickinson DO at 8:36 EST ,
== END | disposition home or self-care (01) ==
PROVIDERS: PCP Nurse Practitioner Family; Referring Provider Internal Medicine Gastroenterology; Visit Provider Internal Medicine Gastroenterology
DX: K82.8 Other specified diseases of gallbladder (principal)
CPT/HCPCS: 78227; A9537; J2805

== ENCOUNTER 2024-04-20 11:55 | Emergency (ER) | payer OTHER, SELFPAY ==
[2024-04-20] VITALS (7 sets, daily range): BP systolic 111–136; BP diastolic 58–95; PULSE 72–83; RESP 18–24; TEMP 36.4; O2SAT 95–100; BMI 34.4
--- NOTE | 2024-04-20 13:01 | RAD_ITS ---
STUDY: X-RAY CHEST REASON FOR EXAM: Female, 63 years old. CHF. TECHNIQUE: Single AP portable view of the chest. COMPARISON: Comparison is made with prior study dated April 05, 2024. FINDINGS: EKG electrodes are seen. There is evidence of vascular congestion and CHF. There is no demonstrated pleural abnormality. Sternal cerclage wires are present from a prior sternotomy. Prior aortic valve replacement. Moderate cardiomegaly. Normal mediastinum and pauline. Normal visualized pulmonary arteries. There is atherosclerotic calcification of the aortic arch with tortuosity. There are diffuse degenerative changes of the visualized thoracic spine. Normal visualized ribs, clavicles, and shoulders. There is no demonstrated abnormality of the visualized soft tissue structures of the upper abdomen. RAD/Chest 1 View (Portable) IMPRESSION: Cardiomegaly. CHF. Prior aortic replacement. Electronically Signed: Luis Boogie MD at 13:32 EST ,
--- NOTE | 2024-04-20 13:03 | EX.ED.DYSGE1 ---
HPI History of Present Illness Chief Complaint: Shortness of Breath Informant: patient and spouse/S.O. Narrative Narrative: 63-year-old female presenting to the emergency room out of concern for congestive heart failure. Patient has a history of paroxysmal A-fib and has had mitral and aortic mechanical valve replacement on Coumadin. She follows locally with Dr. Whelan. She also has a history of secondary pulmonary atrial hypertension. Patient was discharged towards the end of last year on furosemide 20 mg twice a day. She notes that her weight typically fluctuates by couple pounds but over the past several days weight has been increasing more than going back down. She notes a 5 pound weight gain overnight. She called cardiology and was recommended that she come to emergency. [facility] Medical History COVID-19 (03/15/24) Cutaneous abscess Wears glasses Wears dentures On home oxygen therapy Cancer Anxiety Hypertension CPAP (continuous positive airway pressure) dependence Positive GBS test Endometrial cancer Secondary pulmonary arterial hypertension Nonrheumatic aortic (valve) stenosis with insufficiency Congenital subaortic stenosis of membranous type Essential (primary) hypertension Narcolepsy Allergic rhinitis Obesity Streptococcal septicemia History of bacterial endocarditis Nonrheumatic mitral valve insufficiency Chronic diastolic (congestive) heart failure Left bundle branch block Asthma HLD (hyperlipidemia) Subvalvar aortic stenosis Obstructive sleep apnea Psoriasis Morbid obesity Home Medications ?Medication ?Instructions ?Recorded ?Last Taken ?Type multivitamin with folic acid 400 1 tab PO DAILY SUPPLEMETN 05/30/16 07/10/20 History mcg tablet melatonin 5 mg capsule 5 mg PO QHS SLEEP 05/21/20 07/09/20 History omeprazole 40 mg capsule,delayed 40 mg PO DAILY GERD 05/21/20 02/10/24 History release duloxetine 60 mg capsule,delayed 120 mg PO DAILY 11/08/20 02/10/24 History release (Cymbalta) metoprolol tartrate 25 mg tablet 25 mg PO BID HEART #180 tabs 12/11/20 02/04/21 Rx clobetasol 0.05 % topical cream 1 applic topical BID PRN skin 11/05/22 02/01/24 History irritation albuterol sulfate 90 mcg/actuation 2 puff inhalation Q4H PRN 01/14/23 02/01/24 Rx aerosol inhaler (Ventolin HFA) shortness of breath or wheezing #8.5 grams budesonide-formoterol HFA 160 2 puff inhalation BID #10.2 grams 01/14/23 02/09/24 Rx mcg-4.5 mcg/actuation aerosol inhaler (Symbicort) fluticasone propionate 50 2 spray intranasal QDAY Nasal #1 01/14/23 02/10/24 Rx mcg/actuation nasal device spray,suspension (Flonase Allergy Relief) ipratropium 0.5 mg-albuterol 3 mg 3 ml inhalation Q4H PRN PRN SOB 01/14/23 Unknown Rx (2.5 mg base)/3 mL nebulization &/OR WHEEZING #180 mL soln loratadine 10 mg tablet 10 mg PO DAILY ALLERGIES #90 tabs 01/14/23 02/09/24 Rx diphenoxylate-atropine 2.5 1 tab PO 4X/DAY PRN PRN diarrhea 5 04/06/23 Unknown Rx mg-0.025 mg tablet (Lomotil) days #20 tabs lorazepam 1 mg tablet (Ativan) 1 mg PO TID PRN Muscle 04/06/23 Unknown Rx cramps/spasms 5 days #15 tabs PEP device #1 ea 05/05/23 Unknown Rx acetaminophen 500 mg tablet 1,000 mg PO DAILY PRN pain 09/08/23 02/07/24 History (Tylenol Extra Strength) diphenhydramine HCl 25 mg tablet 12.5 mg PO QHS PRN allergy symptoms 09/08/23 Unknown History (Benadryl Allergy) gabapentin 300 mg capsule 300 mg PO BID 09/08/23 02/10/24 History azelastine 137 mcg (0.1 %) nasal 2 spray intranasal BID #30 mL 11/11/23 02/09/24 Rx spray cholecalciferol (vitamin D3) 1,250 1,250 mcg PO QWEEK 12/15/23 02/10/24 History mcg (50,000 unit) capsule magnesium oxide 400 mg PO QDAY Supplement 12/15/23 Unknown History semaglutide 0.25 mg or 0.5 mg (2 0.5 mg subcut QWEEK 12/15/23 02/09/24 History mg/3 mL) subcutaneous pen injector (Ozempic) warfarin 5 mg tablet 5 mg PO .COMPLEX #180 tabs 02/03/24 02/09/24 Rx Handicap Placard #1 ea 03/09/24 Unknown Rx multivitamin with minerals 2 tab PO DAILY 03/09/24 Unknown History (Hair,Skin and Nails tablet) potassium chloride 20 mEq 40 meq PO QDAY 03/09/24 Unknown History tablet,extended release(part/cryst) (Klor-Con M) torsemide 20 mg tablet 20 mg PO .COMPLEX FLUID 03/21/24 Unknown History dapagliflozin propanediol 10 mg 10 mg PO QDAY #90 tabs 03/22/24 Unknown Rx tablet Allergy/AdvReac Type Severity Reaction Status Date / Time clarithromycin (From Biaxin) Allergy Severe SOB, hives Verified 03/09/24 09:34 and swelling cephalexin (Cephalexin) Allergy Rash Verified 03/09/24 09:34 simvastatin Allergy Rash Verified 03/09/24 09:34 sulfamethoxazole Allergy Rash Verified 03/09/24 09:34 trimethoprim Allergy Rash/leg Verified 03/09/24 09:34 swelling bupropion AdvReac Severe worsened Verified 03/09/24 09:34 depression spironolactone AdvReac Intermediate Hair Loss Verified 03/09/24 09:34 adhesive tape AdvReac Itching Verified 03/09/24 09:34 ciprofloxacin AdvReac Itching Verified 03/09/24 09:34 Macrolide Antibiotics AdvReac Unknown Verified 03/09/24 09:34 Penicillins AdvReac Unknown Verified 03/09/24 09:34 Family History Father CAD (coronary artery disease) Hypertension Mother , age 55 Sudden cardiac Hypertension Abdominal aortic aneurysm rupture Brother Hypertension Sister Hypertension Surgical History History of right heart catheterization (02/19/24) H/O bilateral salpingo-oophorectomy (01/2020) History of robot-assisted laparoscopic hysterectomy (01/2020) Resection of subaortic membrane (2002) History of tubal ligation HX venous access device placed History of mechanical aortic valve replacement (05/13/16) History of mitral valve replacement with mechanical valve (05/13/16) Social History household members: spouse number of children: 4 current occupational status: unemployed history of recent travel: No sexually active: Yes Smoking Status: Never smoker alcohol intake: never substance use type: does not use diet: low carbohydrate caffeine: No what type of physical activity do you participate in: walking seatbelt use: always do you feel safe at home: Yes additional social history: - Dylan ROS ROS ED ROS Narrative Weight gain Constitutional Constitutional ED: Denies chills or weight loss Eyes Eyes: Denies change in vision or diplopia ENT ENT ED: Denies ear pain, rhinorrhea or sore throat Cardiovascular Cardiovascular: Denies chest pain, orthopnea, palpitations or racing heartbeat Respiratory/Chest Respiratory/Chest: Reports dyspnea; Denies cough or orthopnea Gastrointestinal Gastrointestinal: Denies abdominal pain, diarrhea, nausea or vomiting Genitourinary Genitourinary ED: Denies dysuria, hematuria or urinary frequency Musculoskeletal Musculoskeletal: Denies arthralgias or myalgias Integumentary Denies abscess or rash Neurologic Neurologic: Denies headache(s) or weakness Psychiatric Psychiatric: Denies anxiety, depression, suicidal ideation or suicidal thoughts Endocrine Endocrinology: Denies polydipsia, polyphagia or polyuria Allergic/Immunologic Allergic/Immunologic ED: Denies mouth swelling, tongue swelling or urticaria EXAM Physical Exam Const Vital Signs: 04/20/24 11:55 04/20/24 12:10 04/20/24 12:45 Temperature 97.5 F L Temperature Source Temporal Pulse Rate 83 78 Respiratory Rate 24 H 20 H Respiratory Effort Short of Breath Respiratory Pattern Tachypnea Blood Pressure 130/95 H 124/62 H Blood Pressure Mean 106 82 Pulse Ox 97 99 Oxygen Delivery Method Nasal Cannula Nasal Cannula Oxygen Flow Rate (L/min) 3 3 04/20/24 13:00 04/20/24 14:00 04/20/24 15:00 Temperature Temperature Source Pulse Rate 77 77 73 Respiratory Rate 20 H 18 Respiratory Effort Respiratory Pattern Blood Pressure 115/67 111/58 L 136/71 H Blood Pressure Mean 83 75 92 Pulse Ox 98 95 100 Oxygen Delivery Method Nasal Cannula Nasal Cannula Room Air Oxygen Flow Rate (L/min) 3 3 Positive well nourished, well developed and obese General Appearance ED: well developed and NAD Nutritional Appearance: obese HEENT Reports normocephalic, head/scalp atraumatic and moist mucous membranes Eyes PERRL and EOMs intact bilaterally Neck no lymphadenopathy, supple and no JVD Resp normal respiratory effort and clear to auscultation bilaterally Cardio regular rate and regular rhythm Rate: other Other Details: Heart sounds include a click associated with mechanical heart valve GI normal to inspection, nondistended, normoactive bowel sounds and non-tender Palpation: soft Back/Spine no CVA tenderness and normal ROM Extremity normal to inspection General Extremety ED: Negative for edema General Extremity: Negative for edema Neuro oriented x3 and CN's II-XII intact bilaterally Sensorium / Orientation: alert Motor Exam: strength 5/5 throughout Psych mental status grossly normal Mood & Affect: Negative for depressed or tearful Skin no rashes or lesions noted and no wounds MDM MDM MDM Narrative Medical decision making narrative: Differential diagnosis includes but not limited to pleural effusion pneumonia bronchitis heart failure exacerbation Patient's white count 5.4 hemoglobin 10.8. INR slightly subtherapeutic at 2.4 BNP 294.6 troponin is 20 creatinine 0.91 with a BUN of 19 sodium 134 potassium 4.2. My independent interpretation the chest x-ray is small right pleural effusion cardiomegaly status post aortic valve replacement and mild pulmonary edema. Patient is EKG is nonischemic does show atrial fibrillation which is known. Patient was ambulated and is 87% on 3 L at the end of ambulation. I spoke with the patient's clinical psychiatrist. I also spoke with the patient regarding her above results. We talked about admitting her into the hospital for diuresis versus outpatient diuresis. Patient would prefer to go home. She has a supplemental oxygen. Will give her a dose of Lasix here have her increase her to furosemide to 40 mg twice a day follow-up with cardiology. History & Record Review Discussion w/independent historian: Patient and Significant other Additional record(s) reviewed:: Prior outpatient record and Prior labs Lab Data Attestation: I reviewed the patient's lab results. Labs: Laboratory Results - last 24 hr 04/20/24 13:12 WBC 5.4 RBC 3.61 L Hgb 10.8 L Hct 34.3 L MCV 95.0 MCH 29.9 MCHC 31.5 L RDW Std Deviation 55.4 H RDW Coeff of Ham 16.0 H Plt Count TNP MPV 11.7 Immature Gran % (Auto) 0.400 Neut % (Auto) 71.3 H Lymph % (Auto) 17.3 L Gregory % (Auto) 8.2 Eos % (Auto) 2.2 Baso % (Auto) 0.6 Absolute Neuts (auto) 3.8 Absolute Lymphs (auto) 0.93 Nucleated RBC % 0 Differential Comment SCANNED Platelet Estimate ADEQUATE PT 27.0 H INR 2.4 Sodium 134 L Potassium 4.2 Chloride 100 Carbon Dioxide 30.0 Anion Gap 5 BUN 19 H Creatinine 0.91 Estim Creat Clear Calc 78.86 Est GFR (MDRD) Af Amer 80 Est GFR (MDRD) Non-Af 66 BUN/Creatinine Ratio 20.8 H Glucose 189 H Calcium 8.9 Troponin I High Sens 20 B-Natriuretic Peptide 294.6 H Radiography Diagnostic Testing: Clinical Impression(s) from Imaging Studies Chest X-Ray 04/20/24 13:01 IMPRESSION: Cardiomegaly. CHF. Prior aortic replacement. Electronically Signed: Luis Boogie MD at 13:32 EST , Management Discussion w/another healthcare provider: [employer] (Dr Whelan) Discharge Plan Dx/Rx/DC Orders Clinical Impression: CHF (congestive heart failure), Pulmonary hypertension, Acute and chronic respiratory failure with hypoxia Disposition Disposition: [facility]
[2024-04-20 13:29] LABS: Absolute Lymphocyte Count 0.93 X10^3/uL (0.83-4.51); Absolute Neutrophil Count 3.8 X10^3/uL (2.0-7.7); Basophil# 0.03 X10^3/uL; Basophil% 0.6 % (0-1); Eosinophil# 0.12 X10^3/uL; Eosinophils% 2.2 % (0-5); Hematocrit 34.3 % (37-47); Hemoglobin 10.8 g/dL (12.0-15.0); Lymphocyte # 0.93 X10^3/ul (0.83-4.51); Lymphocyte % 17.3 % (19-41); Mean Corp Hgb Conc 31.5 g/dL (32-36); Mean Corpuscular Hgb 29.9 pg (27.0-32.0); Mean Platelet Vol. 11.7 fl (6.2-12.0); Monocyte# 0.44 X10^3/uL; Monocyte% 8.2 % (0-10); NRBC Flagged by Analyzer 0 % (0-5); Neutrophil # 3.84 X10^3/uL (2.7-7.7); Neutrophil % 71.3 % (47-70); POSITIVE COUNT YES; RBC Distribution Width SD 55.4 fl (35.1-43.9); Red Blood Count 3.61 M/mm3 (4.2-5.4); White Blood Count 5.4 K/mm3 (4.4-11.0)
[2024-04-20 13:46] LABS: International Normalized Ratio 2.4
[2024-04-20 13:57] LABS: Differential Indicated SCAN CRITERIA MET
[2024-04-20 13:58] LABS: Differential Comment SCANNED; Platelet Estimate ADEQUATE (ADEQ)
[2024-04-20 14:06] LABS: BNP,B-Type NATRIURETIC PEPTIDE 294.6 pg/mL (0-100)
[2024-04-20 14:56] LABS: Anion Gap 5 (5-15); BUN 19 mg/dL (7-18); BUN/Creat Ratio 20.8 RATIO (10-20); Calcium,Total 8.9 mg/dL (8.5-10.1); Chloride 100 mmol/L (98-107); Creatinine, Serum 0.91 mg/dL (0.55-1.02); EST Glomerular Filtration Rate 66 mL/min (>60); Est Glom Filt Rate - Afr Amer 80 mL/min (>60); Estimated Creatinine Clearance 78.86 ml/min; Glucose 189 mg/dL (74-106); Potassium 4.2 mmol/L (3.5-5.1); Sodium Level 134 mmol/L (136-145); Troponin-I HS 20 pg/mL (3.0-54.0)
[2024-04-20] MEDS: Furosemide 100 MG/10 ML Vial 60 MG IV (15:18)
== END 2024-04-20 15:31 | disposition home or self-care (01) ==
PROVIDERS: Emergency Provider Emergency Medicine; PCP Nurse Practitioner Family; Visit Provider Emergency Medicine
DX: I11.0 Hypertensive heart disease with heart failure (principal); J96.21 Acute and chronic respiratory failure with hypoxia; I27.20 Pulmonary hypertension, unspecified; I50.32 Chronic diastolic (congestive) heart failure; I48.0 Paroxysmal atrial fibrillation; J45.909 Unspecified asthma, uncomplicated; E78.5 Hyperlipidemia, unspecified; G47.33 Obstructive sleep apnea (adult) (pediatric); Z95.2 Presence of prosthetic heart valve; Z99.89 Dependence on other enabling machines and devices; Z79.899 Other long term (current) drug therapy; F41.9 Anxiety disorder, unspecified; Z85.89 Personal history of malignant neoplasm of other organs and systems; Z79.51 Long term (current) use of inhaled steroids; Z90.722 Acquired absence of ovaries, bilateral; Z90.710 Acquired absence of both cervix and uterus; Z98.51 Tubal ligation status
CPT/HCPCS: 71045; 80048; 83880; 84484; 85025; 85610; 93005; 96374; 99283; A4216; J1940

== ENCOUNTER 2024-04-26 08:52 | Outpatient (RCR) | payer OTHER, SELFPAY ==
[2024-04-06 05:00] VITALS: BMI 39.5
[2024-04-26 10:08] LABS: International Normalized Ratio 3.3; Prothrombin Time (Protime)PT. 34.6 SECONDS (11.7-14.9)
== END 2024-04-26 18:00 | disposition home or self-care (01) ==
LOC: LAB 08:52
PROVIDERS: PCP Nurse Practitioner Family; Referring Provider Internal Medicine Cardiovascular Disease; Visit Provider Internal Medicine Cardiovascular Disease
DX: Z95.2 Presence of prosthetic heart valve (principal); Z79.01 Long term (current) use of anticoagulants
CPT/HCPCS: 36415; 85610

== ENCOUNTER 2024-05-17 10:58 | Outpatient (RCR) | payer OTHER, SELFPAY ==
[2024-05-06 21:39] VITALS: BMI 39.5
[2024-05-12 17:43] LABS: Magnesium 2.7 mg/dL (1.6-2.6)
[2024-05-12 21:58] LABS: Anion Gap 9 (5-15); BUN 29 mg/dL (7-18); BUN/Creat Ratio 22.1 RATIO (10-20); Chloride 94 mmol/L (98-107); Creatinine, Serum 1.31 mg/dL (0.55-1.02); EST Glomerular Filtration Rate 44 mL/min (>60); Est Glom Filt Rate - Afr Amer 53 mL/min (>60); Glucose 145 mg/dL (74-106); Potassium 3.9 mmol/L (3.5-5.1); Sodium Level 135 mmol/L (136-145)
--- NOTE | 2024-05-17 11:25 | RAD_ITS ---
PROCEDURE: CHEST PA AND LATERAL REASON FOR EXAM: Shortness of breath and high blood pressure. TECHNIQUE: Frontal and lateral views of the chest. COMPARISON: 04/05/2024. FINDINGS: Cardiomegaly. Status post valve replacement. Aortic calcifications. Bilateral lower lung zone airspace disease, [id number] with mild right pleural effusion. Status post median sternotomy. Chronic right rib fracture deformity. RAD/Chest PA and Lateral IMPRESSION: Bilateral lower lung zone airspace disease, [id number] with mild r ight pleural effusion. Reading Location: [id number]
[2024-05-17 12:40] LABS: Absolute Lymphocyte Count 1.24 X10^3/uL (0.83-4.51); Absolute Neutrophil Count 4.3 X10^3/uL (2.0-7.7); Basophil# 0.03 X10^3/uL; Basophil% 0.5 % (0-1); Eosinophil# 0.14 X10^3/uL; Eosinophils% 2.2 % (0-5); Hemoglobin 10.3 g/dL (12.0-15.0); Lymphocyte # 1.24 X10^3/ul (0.83-4.51); Lymphocyte % 19.7 % (19-41); Mean Corp Hgb Conc 30.3 g/dL (32-36); Mean Corpuscular Hgb 28.9 pg (27.0-32.0); Mean Corpuscular Volume 95.2 fL (81-99); Mean Platelet Vol. 10.5 fl (6.2-12.0); Monocyte% 9.5 % (0-10); NRBC Flagged by Analyzer 0 % (0-5); Neutrophil # 4.26 X10^3/uL (2.7-7.7); Neutrophil % 67.6 % (47-70); Platelet Count 257 K/mm3 (150-450); RBC Distribution Width CV 16.2 % (11.6-14.6); RBC Distribution Width SD 57.3 fl (35.1-43.9); Red Blood Count 3.57 M/mm3 (4.2-5.4); White Blood Count 6.3 K/mm3 (4.4-11.0)
[2024-05-17 12:48] LABS: International Normalized Ratio 3.7; Prothrombin Time (Protime)PT. 37.4 SECONDS (11.7-14.9)
[2024-05-17 13:28] LABS: Anion Gap 8 (5-15); BUN 25 mg/dL (7-18); BUN/Creat Ratio 22.5 RATIO (10-20); Calcium,Total 9.2 mg/dL (8.5-10.1); Chloride 95 mmol/L (98-107); Creatinine, Serum 1.11 mg/dL (0.55-1.02); EST Glomerular Filtration Rate 53 mL/min (>60); Est Glom Filt Rate - Afr Amer 64 mL/min (>60); Glucose 165 mg/dL (74-106); Potassium 3.7 mmol/L (3.5-5.1); Sodium Level 135 mmol/L (136-145)
== END 2024-06-03 18:00 | disposition home or self-care (01) ==
LOC: LAB 10:58
PROVIDERS: Nurse Practitioner Family; Physician Assistant Medical; PCP Nurse Practitioner Family; Referring Provider Internal Medicine Cardiovascular Disease; Visit Provider Internal Medicine Cardiovascular Disease
DX: Z95.2 Presence of prosthetic heart valve (principal); Z79.01 Long term (current) use of anticoagulants; I48.0 Paroxysmal atrial fibrillation; R06.02 Shortness of breath; I27.20 Pulmonary hypertension, unspecified; R63.5 Abnormal weight gain; I50.32 Chronic diastolic (congestive) heart failure; I34.0 Nonrheumatic mitral (valve) insufficiency; I10 Essential (primary) hypertension; E78.00 Pure hypercholesterolemia, unspecified; D64.9 Anemia, unspecified
CPT/HCPCS: 36415; 71046; 80048; 83735; 83880; 85025; 85610

== ENCOUNTER 2024-05-23 05:21 | Inpatient (IN) | payer OTHER, SELFPAY ==
[2024-05-23] VITALS (9 sets, daily range): BP systolic 106–141; BP diastolic 46–77; PULSE 65–76; RESP 16–20; TEMP 36.4–36.7; O2SAT 93–100; BMI 35.4
--- NOTE | 2024-05-23 05:37 | RAD_ITS ---
PROCEDURE: KNEE 4 OR MORE VIEWS REASON FOR EXAM: Fall TECHNIQUE: 4 views of the left knee COMPARISON: None. FINDINGS: LEFT KNEE: No fracture. No suspicious bone lesion. Normal alignment. Mild tricompartmental degenerative changes. No effusion. Soft tissues are unremarkable. RAD/Knee 4 or More Views IMPRESSION: Degenerative changes with no acute osseous abnormality of the left knee. Reading Location: [facility]
--- NOTE | 2024-05-23 05:37 | RAD_ITS ---
PROCEDURE: Four views of the left shoulder REASON FOR EXAM: Fall TECHNIQUE: 3 view(s) of each shoulder COMPARISON: None. FINDINGS: . LEFT SHOULDER: No fracture. No suspicious bone lesion. Moderate degenerative changes. Radiodensity in the glenohumeral joint. Normal alignment of the acromioclavicular and glenohumeral joints. Soft tissues are unremarkable. RAD/Shoulder min 2 Views IMPRESSION: Moderate degenerative changes and CPPD arthropathy of the left shoulder with no acute osseous abnormality Reading Location: [facility]
--- NOTE | 2024-05-23 05:37 | CT_ITS ---
EXAM: BRAIN/HEAD WITHOUT CONTRAST CLINICAL HISTORY: Fall COMPARISON: None. TECHNIQUE: Noncontrast images of the head with multiplanar reconstructions. Dose reduction techniques were used including intermediate exposure control (AEC),iterative reconstruction technique, and/or mA and/or KV dose adjustments based on patient's size. FINDINGS: CT HEAD FINDINGS: No acute intracranial hemorrhage, mass, mass effect, midline shift or pathologic extra-axial fluid collection. No hydrocephalus. Age- appropriate cerebral volume and white matter. Visualized paranasal sinuses and mastoid air cells are clear. The calvarium is grossly intact. CT/Brain/Head without Contrast IMPRESSION: No CT evidence of acute intracranial pathology. Reading Location: [facility]
--- NOTE | 2024-05-23 05:39 | EX.ED.DYSGE1 ---
HPI History of Present Illness Chief Complaint: Weakness Detail of Chief Complaint: Fall and generalized weakness Informant: patient Narrative Narrative: Patient presents to the emergency department with complaint of a fall. Patient states that she gone to the bathroom and came back after urinating and started feeling somewhat woozy. She tried to hold onto the counter but then her heard her fall. She fell onto a carpeted floor. No loss of consciousness. She is not sure if she hit her head. She is on Coumadin for history of a mechanical heart valve. Patient complaining of pain in her left shoulder and left knee and left foot. After about 20 minutes was able to get her into a chair and then she was able to bear some weight with a rollator. He brings her in today for evaluation. Patient describes some diffuse bodyaches. She denies fever. She denies urinary symptoms. [facility] Medical History Abnormal biliary HIDA scan COVID-19 (03/15/24) Cutaneous abscess Wears glasses Wears dentures On home oxygen therapy Cancer Anxiety Hypertension CPAP (continuous positive airway pressure) dependence Positive GBS test Endometrial cancer Secondary pulmonary arterial hypertension Nonrheumatic aortic (valve) stenosis with insufficiency Congenital subaortic stenosis of membranous type Essential (primary) hypertension Narcolepsy Allergic rhinitis Obesity Streptococcal septicemia History of bacterial endocarditis Nonrheumatic mitral valve insufficiency Chronic diastolic (congestive) heart failure Left bundle branch block Asthma HLD (hyperlipidemia) Subvalvar aortic stenosis Obstructive sleep apnea Psoriasis Morbid obesity Home Medications ?Medication ?Instructions ?Recorded ?Last Taken ?Type multivitamin with folic acid 400 1 tab PO DAILY SUPPLEMETN 05/30/16 07/10/20 History mcg tablet melatonin 5 mg capsule 5 mg PO QHS SLEEP 05/21/20 07/09/20 History duloxetine 60 mg capsule,delayed 120 mg PO DAILY 11/08/20 02/10/24 History release (Cymbalta) metoprolol tartrate 25 mg tablet 25 mg PO BID HEART #180 tabs 12/11/20 02/04/21 Rx clobetasol 0.05 % topical cream 1 applic topical BID PRN skin 11/05/22 02/01/24 History irritation albuterol sulfate 90 mcg/actuation 2 puff inhalation Q4H PRN 01/14/23 02/01/24 Rx aerosol inhaler (Ventolin HFA) shortness of breath or wheezing #8.5 grams budesonide-formoterol HFA 160 2 puff inhalation BID #10.2 grams 01/14/23 02/09/24 Rx mcg-4.5 mcg/actuation aerosol inhaler (Symbicort) fluticasone propionate 50 2 spray intranasal QDAY Nasal #1 01/14/23 02/10/24 Rx mcg/actuation nasal device spray,suspension (Flonase Allergy Relief) ipratropium 0.5 mg-albuterol 3 mg 3 ml inhalation Q4H PRN PRN SOB 01/14/23 Unknown Rx (2.5 mg base)/3 mL nebulization &/OR WHEEZING #180 mL soln loratadine 10 mg tablet 10 mg PO DAILY ALLERGIES #90 tabs 01/14/23 02/09/24 Rx diphenoxylate-atropine 2.5 1 tab PO 4X/DAY PRN PRN diarrhea 5 04/06/23 Unknown Rx mg-0.025 mg tablet (Lomotil) days #20 tabs lorazepam 1 mg tablet (Ativan) 1 mg PO TID PRN Muscle 04/06/23 Unknown Rx cramps/spasms 5 days #15 tabs PEP device #1 ea 05/05/23 Unknown Rx acetaminophen 500 mg tablet 1,000 mg PO DAILY PRN pain 09/08/23 02/07/24 History (Tylenol Extra Strength) diphenhydramine HCl 25 mg tablet 12.5 mg PO QHS PRN allergy symptoms 09/08/23 Unknown History (Benadryl Allergy) gabapentin 300 mg capsule 300 mg PO BID 09/08/23 02/10/24 History azelastine 137 mcg (0.1 %) nasal 2 spray intranasal BID #30 mL 11/11/23 02/09/24 Rx spray cholecalciferol (vitamin D3) 1,250 1,250 mcg PO QWEEK 12/15/23 02/10/24 History mcg (50,000 unit) capsule magnesium oxide 400 mg PO QDAY Supplement 12/15/23 Unknown History semaglutide 0.25 mg or 0.5 mg (2 0.5 mg subcut QWEEK 12/15/23 02/09/24 History mg/3 mL) subcutaneous pen injector (Ozempic) warfarin 5 mg tablet 5 mg PO .COMPLEX #180 tabs 02/03/24 02/09/24 Rx multivitamin with minerals 2 tab PO DAILY 03/09/24 Unknown History (Hair,Skin and Nails tablet) Farxiga 10 mg tablet 10 mg PO QDAY #90 tabs 04/26/24 Unknown Rx (dapagliflozin propanediol) torsemide 40 mg tablet 40 mg PO BID #60 tabs 04/28/24 Unknown Rx Handicap Placard #1 ea 05/09/24 Unknown Rx acetylcysteine 600 mg capsule (NAC) 600 mg PO QDAY 05/18/24 Unknown History omeprazole 40 mg capsule,delayed 40 mg PO BID GERD 05/18/24 Unknown History release potassium chloride 20 mEq 20 meq PO QDAY 05/18/24 Unknown History tablet,extended release(part/cryst) (Klor-Con M) spironolactone 25 mg tablet 50 mg (2 x 25 mg) PO DAILY #30 tabs 05/18/24 Unknown Rx warfarin 2.5 mg tablet 2.5 mg PO .thursday05/23/24 Unknown History Allergy/AdvReac Type Severity Reaction Status Date / Time clarithromycin (From Biaxin) Allergy Severe SOB, hives Verified 05/23/24 05:23 and swelling cephalexin (Cephalexin) Allergy Rash Verified 05/23/24 05:23 simvastatin Allergy Rash Verified 05/23/24 05:23 sulfamethoxazole Allergy Rash Verified 05/23/24 05:23 trimethoprim Allergy Rash/leg Verified 05/23/24 05:23 swelling bupropion AdvReac Severe worsened Verified 05/23/24 05:23 depression spironolactone AdvReac Intermediate Hair Loss Verified 05/23/24 05:23 adhesive tape AdvReac Itching Verified 05/23/24 05:23 ciprofloxacin AdvReac Itching Verified 05/23/24 05:23 Macrolide Antibiotics AdvReac Unknown Verified 05/23/24 05:23 Penicillins AdvReac Unknown Verified 05/23/24 05:23 Family History Father CAD (coronary artery disease) Hypertension Mother , age 55 Sudden cardiac Hypertension Abdominal aortic aneurysm rupture Brother Hypertension Sister Hypertension Surgical History History of right heart catheterization (02/19/24) H/O bilateral salpingo-oophorectomy (01/2020) History of robot-assisted laparoscopic hysterectomy (01/2020) Resection of subaortic membrane (2002) History of tubal ligation HX venous access device placed History of mechanical aortic valve replacement (05/13/16) History of mitral valve replacement with mechanical valve (05/13/16) Social History household members: spouse number of children: 4 current occupational status: unemployed history of recent travel: No sexually active: Yes Smoking Status: Never smoker alcohol intake: never substance use type: does not use diet: low carbohydrate caffeine: No what type of physical activity do you participate in: walking seatbelt use: always do you feel safe at home: Yes additional social history: - Dylan DAIGLE ROS ED Review of Systems ROS Unobtainable: other Constitutional Constitutional ED: Reports lethargy; Denies chills, fever(s), sweats or weight loss Eyes Eyes: Denies blurry vision, change in vision or diplopia ENT ENT ED: Denies rhinorrhea or sore throat Cardiovascular Cardiovascular: Denies chest pain, orthopnea or racing heartbeat Respiratory/Chest Respiratory/Chest: Reports cough; Denies dyspnea, dyspnea on exertion, orthopnea or sputum Gastrointestinal Gastrointestinal: Denies abdominal pain, diarrhea, nausea or vomiting Genitourinary Genitourinary ED: Denies dysuria, hematuria or urinary frequency Musculoskeletal Musculoskeletal: Reports myalgias and other Details: Left shoulder pain, left knee pain, left foot pain ; Denies arthralgias, back pain or neck pain Integumentary Denies abscess, Abrasions or rash Neurologic Neurologic: Denies headache(s) or weakness Psychiatric Psychiatric: Denies anxiety, depression or suicidal thoughts Endocrine Endocrinology: Denies polydipsia, polyphagia or polyuria Hematologic/Lymphatic Hematologic/Lymphatic: Denies easy bleeding, easy bruising or lymphadenopathy Allergic/Immunologic Allergic/Immunologic ED: Denies mouth swelling, tongue swelling or urticaria EXAM Physical Exam Const Vital Signs: 05/23/24 05:23 05/23/24 05:27 Temperature 98.0 F Temperature Source Oral Pulse Rate 65 Respiratory Rate 16 Blood Pressure 106/65 Blood Pressure Mean 78 Pulse Ox 93 Oxygen Delivery Method Nasal Cannula Nasal Cannula Oxygen Flow Rate (L/min) 4 4 Positive well nourished and well developed General Appearance ED: well developed and NAD HEENT Reports TM's clear and moist mucous membranes normocephalic and atraumatic; Negative for trauma or tenderness Tympanic Membrane ED: Yes TM's clear Eyes PERRL and EOMs intact bilaterally General Eye ED: Negative for pale conjunctiva or scleral icterus Neck no lymphadenopathy, supple and no JVD General: Negative for tenderness Chest Wall inspection of chest normal and palpation of chest normal Chest: Negative for tenderness Resp normal respiratory effort and clear to auscultation bilaterally Effort and Inspection: Negative for respiratory distress or pain with movement Auscultation: Negative for rhonchi, wheezes or diminished lung sounds Cardio regular rate, regular rhythm, S1 normal heart sound, S2 normal heart sound and no murmurs Peripheral Pulses: pulses 2+ throughout GI normal to inspection, nondistended, normoactive bowel sounds, soft to palpation, non-tender, non-distended and no masses Back/Spine no CVA tenderness and no thoracic nor lumbar tenderness Extremity Extremity Narrative: Left shoulder-patient does have a area of ecchymosis and bruising to the lateral aspect of the glenohumeral joint is slightly tender to palpation. No obvious deformity. No sulcus sign. Neurovascular intact distally. Left knee-patient has some superficial erythema over the patella with tenderness to palpation. She has good range of motion in flexion extension of the knee. Ligamentously stable however exam limited secondary to pain. Left foot-patient does have some tenderness palpation over the proximal foot with some erythema to the dorsum of the proximal foot. No obvious deformity. Neurovascular intact distally. General Extremety ED: Negative for edema General Extremity: Negative for edema Neuro oriented x3, CN's II-XII intact bilaterally, no sensory deficits noted and gait normal Sensorium / Orientation: awake, alert, oriented to person, oriented to place and oriented to time Motor Exam: strength 5/5 throughout and strength abnormal Psych mental status grossly normal Skin no rashes or lesions noted and no wounds MDM MDM MDM Narrative Medical decision making narrative: Patient presents with generalized weakness for about a week. She has history of a fall this morning. Complaining of left shoulder and left knee and left foot pain. Normally she walks with a rollator. She complains of bodyaches and cough. Denies urinary symptoms. IV line established. Patient will have basic labs ordered as well as urinalysis as well as COVID flu and RSV testing. CT scan of the brain without contrast was unremarkable. Patient had a urinalysis that was positive for UTI. She has multiple drug allergies therefore she was started on Macrobid which she has had in the past and tolerated well. X-rays of the left shoulder obtained interpreted by myself as no fractures. X-rays of the left knee obtained showed no fractures on my interpretation. X-rays of the left foot showed no fractures or acute abnormalities. Care of patient turned over to morning physician awaiting x-ray results and COVID flu and RSV testing. Patient will likely require admission for weakness, fall, UTI. Lab Data Attestation: I reviewed the patient's lab results. Labs: Laboratory Results - last 24 hr 05/23/24 05/23/24 05:49 06:08 WBC 6.0 RBC 3.55 L Hgb 10.1 L Hct 33.2 L MCV 93.5 MCH 28.5 MCHC 30.4 L RDW Std Deviation 55.1 H RDW Coeff of Ham 15.9 H Plt Count 237 MPV 9.6 Immature Gran % (Auto) 0.500 Neut % (Auto) 68.5 Lymph % (Auto) 16.8 L Martin % (Auto) 11.2 H Eos % (Auto) 2.7 Baso % (Auto) 0.3 Absolute Neuts (auto) 4.1 Absolute Lymphs (auto) 1.00 Nucleated RBC % 0 Sodium 134 L Potassium 3.7 Chloride 95 L Carbon Dioxide 31.0 Anion Gap 9 BUN 30 H Creatinine 1.24 H Estim Creat Clear Calc 57.98 Est GFR (MDRD) Af Amer 56 L Est GFR (MDRD) Non-Af 47 L BUN/Creatinine Ratio 24.2 H Glucose 140 H Calcium 8.9 Troponin I High Sens 26 Urine Color Yellow Urine Clarity Sl. Cloudy Urine pH 6.0 Ur Specific [place] 1.015 Urine Protein 500 H Urine Glucose (UA) 100 H Urine Ketones Negative Urine Occult Blood 10 H Urine Nitrite Negative Urine Bilirubin Negative Urine Urobilinogen 1 H Ur Leukocyte Esterase 100 H Urine RBC 0 SEEN Urine WBC >100 SEEN Ur Squamous Epith Cells 5-10 SEEN Ur Transition Epith Cell 5-10 SEEN Urine Bacteria 3+ Hyaline Casts 0-5 SEEN Urine Mucus 1+ Radiography Diagnostic Testing: Clinical Impression(s) from Imaging Studies Brain CT 05/23/24 05:37 IMPRESSION: No CT evidence of acute intracranial pathology. Reading Location: [facility] Three-view x-rays of the left shoulder obtained interpreted by myself as no evidence of fracture dislocation. 4 view x-rays of the left knee obtained interpreted by myself as no evidence of fracture or dislocation. Three-view x-rays of the left foot obtained interpreted by myself as no evidence of fracture. EKG Initial EKG: Attestation: I personally reviewed and interpreted this EKG as follows: Comments: Sinus rhythm with rate of 63 bpm with left bundle branch block Discharge Plan Triage Chief Complaint: Weakness ED Provider: Jeremy Williamson Dx/Rx/DC Orders Clinical Impression: Fall, Weakness, UTI (urinary tract infection) Prescriptions: No Action duloxetine [Cymbalta] 60 mg capsule,delayed release(DR/EC) 120 mg PO DAILY metoprolol tartrate 25 mg tablet 25 mg PO BID Qty: 180 3RF acetaminophen [Tylenol Extra Strength] 500 mg tablet 1,000 mg PO DAILY PRN (Reason: pain) albuterol sulfate [Ventolin HFA] 90 mcg/actuation HFA aerosol inhaler 2 puff INHALATION Q4H PRN (Reason: shortness of breath or wheezing) Qty: 8.5 6RF budesonide-formoterol [Symbicort] 160-4.5 mcg/actuation HFA aerosol inhaler 2 puff inhalation BID Qty: 10.2 6RF fluticasone propionate [Flonase Allergy Relief] 50 mcg/actuation spray,suspension 2 spray INTRANASAL QDAY Qty: 1 3RF Rx Instructions: administer into each nostril ipratropium-albuterol 0.5 mg-3 mg(2.5 mg base)/3 mL solution for nebulization 3 ml inhalation Q4H PRN PRN (Reason: SOB &/OR WHEEZING) Qty: 180 6RF loratadine 10 mg tablet 10 mg PO DAILY Qty: 90 3RF clobetasol 0.05 % cream 1 applic topical BID PRN (Reason: skin irritation) (DME) PEP device See Rx Instructions .ROUTE .MEDSUPPLY Qty: 1 0RF Rx Instructions: with training cholecalciferol (vitamin D3) 1,250 mcg (50,000 unit) capsule 1,250 mcg PO QWEEK Ozempic 0.25 mg or 0.5 mg (2 mg/3 mL) pen injector 0.5 mg subcut QWEEK diphenhydramine HCl [Benadryl Allergy] 25 mg tablet 12.5 mg PO QHS PRN (Reason: allergy symptoms) gabapentin 300 mg capsule 300 mg PO BID magnesium oxide 400 mg magnesium tablet 400 mg PO QDAY Hair,Skin and Nails Tablet 2 tab PO DAILY potassium chloride [Klor-Con M20] 20 mEq tablet,ER particles/crystals 20 meq PO QDAY dapagliflozin propanediol [Farxiga] 10 mg tablet 10 mg PO QDAY Qty: 90 3RF acetylcysteine [NAC] 600 mg capsule 600 mg PO QDAY spironolactone 25 mg tablet 50 mg PO DAILY Qty: 30 11RF multivitamin with folic acid 1 TABLET tablet 1 tab PO DAILY melatonin 5 MG capsule 5 mg PO QHS omeprazole 40 mg capsule,delayed release(DR/EC) 40 mg PO BID diphenoxylate-atropine [Lomotil] 2.5-0.025 mg tablet 1 tab PO 4X/DAY PRN PRN (Reason: diarrhea) 5 Days Qty: 20 0RF lorazepam [Ativan] 1 mg tablet 1 mg PO TID PRN (Reason: Muscle cramps/spasms) 5 Days Qty: 15 0RF warfarin 2.5 mg tablet 2.5 mg PO .thursday azelastine 137 mcg (0.1 %) spray,non-aerosol 2 spray intranasal BID Qty: 30 3RF Rx Instructions: administer into each nostril warfarin 5 mg tablet 5 mg PO .COMPLEX Qty: 180 3RF Protocol: Dose Management Condition: Thursday Dose/Route: 5 mg Instruction: 1 x 5 mg tablet Condition: Thursday Dose/Route: 5 mg Instruction: 1 x 5 mg tablet Condition: Thursday Dose/Route: 2.5 mg Instruction: 0.5 x 5 mg tablets Condition: Thursday Dose/Route: 5 mg Instruction: 1 x 5 mg tablet Condition: Dose/Route: 5 mg Instruction: 1 x 5 mg tablet Condition: Thursday Dose/Route: 5 mg Instruction: 1 x 5 mg tablet Condition: Thursday Dose/Route: 5 mg Instruction: 1 x 5 mg tablet Protocol Text: Adjustment Start Date: Thursday05/17/24 INR Value: 3.7 INR Date: 05/17/24 Recheck Date: 05/31/24 Rx Instructions: 5 mg orally daily: please give extra pills for dose changes, dose changes often; torsemide 40 mg tablet 40 mg PO BID Qty: 60 11RF (DME) Handicap Placard See Rx Instructions .Route .MEDSUPPLY Qty: 1 0RF Rx Instructions: Good from 03/09/2024-03/09/2029 Primary Care Provider: Marcia Ramesh Referrals: Marcia Ramesh, [facility] [Primary Care Provider] - Print Language: Frisian
[2024-05-23 06:04] LABS: Absolute Neutrophil Count 4.1 X10^3/uL (2.0-7.7); Basophil# 0.02 X10^3/uL; Basophil% 0.3 % (0-1); Eosinophil# 0.16 X10^3/uL; Eosinophils% 2.7 % (0-5); Hematocrit 33.2 % (37-47); Hemoglobin 10.1 g/dL (12.0-15.0); Lymphocyte % 16.8 % (19-41); Mean Corp Hgb Conc 30.4 g/dL (32-36); Mean Corpuscular Hgb 28.5 pg (27.0-32.0); Mean Corpuscular Volume 93.5 fL (81-99); Mean Platelet Vol. 9.6 fl (6.2-12.0); Monocyte# 0.67 X10^3/uL; Monocyte% 11.2 % (0-10); NRBC Flagged by Analyzer 0 % (0-5); Neutrophil # 4.08 X10^3/uL (2.7-7.7); Neutrophil % 68.5 % (47-70); Platelet Count 237 K/mm3 (150-450); RBC Distribution Width CV 15.9 % (11.6-14.6); RBC Distribution Width SD 55.1 fl (35.1-43.9); Red Blood Count 3.55 M/mm3 (4.2-5.4)
[2024-05-23 06:19] LABS: Color, Urine Yellow (Yellow); Glucose, Dipstick 100 mg/dl (Normal); Ketone-Dipstick Negative (Negative); Leukocyte Esterase-Dipstick 100 /ul (Negative); Nitrite-Dipstick Negative (Negative); Occult Blood-Urine 10 /ul (Negative); Protein-Dipstick 500 mg/dl (Negative); Specific Gravity, Urine 1.015 (1.002-1.030); Urine Bilirubin Dipstick Negative (Negative); Urine Clarity Sl. Cloudy (Clear); Urine Urobilinogen 1 mg/dl (Normal)
--- NOTE | 2024-05-23 06:20 | RAD_ITS ---
PROCEDURE: FOOT MIN 3 VIEWS REASON FOR EXAM: Fall TECHNIQUE: 3 views of the left foot COMPARISON: None. FINDINGS: LEFT FOOT: No visible fracture. No suspicious bone lesion. Normal alignment. Plantar and dorsal calcaneal spurs Soft tissues are unremarkable. RAD/Foot min 3 Views IMPRESSION: Degenerative changes with no acute osseous abnormality of the left foot. Reading Location: [facility]
[2024-05-23 06:30] LABS: White Blood Cells >100 SEEN /hpf (0-5)
[2024-05-23 06:30] LABS: Anion Gap 9 (5-15); BUN 30 mg/dL (7-18); BUN/Creat Ratio 24.2 RATIO (10-20); Calcium,Total 8.9 mg/dL (8.5-10.1); Chloride 95 mmol/L (98-107); Creatinine, Serum 1.24 mg/dL (0.55-1.02); EST Glomerular Filtration Rate 47 mL/min (>60); Est Glom Filt Rate - Afr Amer 56 mL/min (>60); Estimated Creatinine Clearance 57.98 ml/min; Glucose 140 mg/dL (74-106); Potassium 3.7 mmol/L (3.5-5.1); Sodium Level 134 mmol/L (136-145); Troponin-I HS 26 pg/mL (3.0-54.0)
[2024-05-23 06:31] LABS: Bacteria 3+ /hpf (None Seen); Hyaline Cast 0-5 SEEN /lpf (0-5); Mucous, Urine 1+ /hpf (<or=2+); Red Blood Cells-Urine 0 SEEN /hpf (0-5); Squamous Epithelial Cells - UA 5-10 SEEN /hpf (5-10); Transitional Epithelial - Ur 5-10 SEEN /hpf (0-5)
[2024-05-23] MEDS: Nitrofurantoin Macrocrystals 100 MG Capsule PO (06:52)
--- NOTE | 2024-05-23 07:10 | RAD_ITS ---
PROCEDURE: CHEST 1 VIEW (PORTABLE) REASON FOR EXAM: Dyspnea TECHNIQUE: Frontal views of the chest COMPARISON: 05/17/2024 FINDINGS: Aortic valvular replacement. Heart size is moderately enlarged. There are atherosclerotic calcifications of the thoracic aorta. Pulmonary vasculature is congested. Right basilar opacity and blunting of the costophrenic angle. 3 cm right mid lung zone nodular mass The bones are unremarkable. RAD/Chest 1 View (Portable) IMPRESSION: 1. Moderate cardiomegaly with pulmonary vascular congestion. 2. Mild right pleural effusion with overlying airspace disease 3. 3 cm midlung zone nodular mass. Consider noncontrast CT scan of the chest for further evaluation Reading Location: [facility]
[2024-05-23] MEDS: Ondansetron 4 MG/2 ML Vial IV (07:31)
[2024-05-23 07:59] LABS: International Normalized Ratio 2.6; Prothrombin Time (Protime)PT. 28.3 SECONDS (11.7-14.9)
--- NOTE | 2024-05-23 08:26 | PCM.HP.STD ---
HPI - General General Date of Admission: 05/23/24 Date of Service: 05/23/24 Chief Complaint: Generalized weakness for 1 week. Fall today HPI Narrative CHELSEA MCKEON, is a 64 F came to ED with chief complaint of generalized weakness and fall. She had fall today and previous 1 was couple weeks ago. She feels generalized muscle aches and cramps and felt her legs gave out and then she felt. She complained of mild ache/pain between shoulder blade and lumbar area. Denies head injury. In ED she had multiple x-rays did not show acute fracture or acute osseous abnormality. Patient denies chest pressure or tightness, shortness of breath, vertigo. Has chronic depression but denies any acute flulike symptoms. No fever PFSH Medical History Abnormal biliary HIDA scan COVID-19 (03/15/24) Cutaneous abscess Wears glasses Wears dentures On home oxygen therapy Cancer Anxiety Hypertension CPAP (continuous positive airway pressure) dependence Positive GBS test Endometrial cancer Secondary pulmonary arterial hypertension Nonrheumatic aortic (valve) stenosis with insufficiency Congenital subaortic stenosis of membranous type Essential (primary) hypertension Narcolepsy Allergic rhinitis Obesity Streptococcal septicemia History of bacterial endocarditis Nonrheumatic mitral valve insufficiency Chronic diastolic (congestive) heart failure Left bundle branch block Asthma HLD (hyperlipidemia) Subvalvar aortic stenosis Obstructive sleep apnea Psoriasis Morbid obesity Home Medications ?Medication ?Instructions ?Recorded ?Last Taken ?Type multivitamin with folic acid 400 1 tab PO DAILY SUPPLEMETN 05/30/16 05/22/24 History mcg tablet melatonin 5 mg capsule 5 mg PO QHS SLEEP 05/21/20 05/22/24 History duloxetine 60 mg capsule,delayed 120 mg PO DAILY Depression 11/08/20 05/22/24 History release (Cymbalta) metoprolol tartrate 25 mg tablet 25 mg PO BID HEART #180 tabs 12/11/20 05/22/24 Rx clobetasol 0.05 % topical cream 1 applic topical BID PRN skin 11/05/22 02/01/24 History irritation albuterol sulfate 90 mcg/actuation 2 puff inhalation Q4H PRN 01/14/23 05/20/24 Rx aerosol inhaler (Ventolin HFA) shortness of breath or wheezing #8.5 grams budesonide-formoterol HFA 160 2 puff inhalation BID Wheezing/SOB 01/14/23 05/22/24 Rx mcg-4.5 mcg/actuation aerosol #10.2 grams inhaler (Symbicort) fluticasone propionate 50 2 spray intranasal QDAY Nasal #1 01/14/23 05/22/24 Rx mcg/actuation nasal device spray,suspension (Flonase Allergy Relief) ipratropium 0.5 mg-albuterol 3 mg 3 ml inhalation Q4H PRN PRN SOB 01/14/23 Unknown Rx (2.5 mg base)/3 mL nebulization &/OR WHEEZING #180 mL soln loratadine 10 mg tablet 10 mg PO DAILY ALLERGIES #90 tabs 01/14/23 05/22/24 Rx diphenoxylate-atropine 2.5 1 tab PO 4X/DAY PRN PRN diarrhea 5 04/06/23 Unknown Rx mg-0.025 mg tablet (Lomotil) days #20 tabs lorazepam 1 mg tablet (Ativan) 1 mg PO TID PRN Muscle 04/06/23 Unknown Rx cramps/spasms 5 days #15 tabs PEP device #1 ea 05/05/23 Unknown Rx acetaminophen 500 mg tablet 1,000 mg PO DAILY PRN pain 09/08/23 05/23/24 10:02 History (Tylenol Extra Strength) diphenhydramine HCl 25 mg tablet 12.5 mg PO QHS PRN allergy symptoms 09/08/23 Unknown History (Benadryl Allergy) gabapentin 300 mg capsule 300 mg PO BID Neuropathy 09/08/23 05/22/24 History azelastine 137 mcg (0.1 %) nasal 2 spray intranasal BID asthma #30 11/11/23 05/22/24 Rx spray mL cholecalciferol (vitamin D3) 1,250 1,250 mcg PO QWEEK Deficiency of 12/15/23 05/17/24 History mcg (50,000 unit) capsule Vitamin D magnesium oxide 400 mg PO QDAY Supplement 12/15/23 05/22/24 History semaglutide 0.25 mg or 0.5 mg (2 0.5 mg subcut QWEEK DM2 12/15/23 05/18/24 History mg/3 mL) subcutaneous pen injector 0.5 mg (Ozempic) warfarin 5 mg tablet 5 mg PO .COMPLEX blood thinner 02/03/24 05/22/24 Rx #180 tabs multivitamin with minerals 2 tab PO DAILY Supplement 03/09/24 05/22/24 History (Hair,Skin and Nails tablet) Farxiga 10 mg tablet 10 mg PO QDAY Diabetes #90 tabs 04/26/24 05/22/24 Rx (dapagliflozin propanediol) torsemide 40 mg tablet 40 mg PO BID CHF #60 tabs 04/28/24 05/22/24 Rx Handicap Placard #1 ea 05/09/24 Unknown Rx acetylcysteine 600 mg capsule (NAC) 600 mg PO QDAY Priuritus 05/18/24 Unknown History omeprazole 40 mg capsule,delayed 40 mg PO BID GERD 05/18/24 05/22/24 History release potassium chloride 20 mEq 20 meq PO QDAY hypokalema 05/18/24 05/22/24 History tablet,extended release(part/cryst) (Klor-Con M) spironolactone 25 mg tablet 50 mg (2 x 25 mg) PO DAILY CHF #30 05/18/24 05/22/24 Rx tabs senna-docusate sodium tablet 2 tab PO DAILY Constipation 05/23/24 05/23/24 History warfarin 2.5 mg tablet 2.5 mg PO .thursday blood thinner 05/23/24 05/17/24 History Allergy/AdvReac Type Severity Reaction Status Date / Time clarithromycin (From Biaxin) Allergy Severe SOB, hives Verified 05/23/24 05:23 and swelling cephalexin (Cephalexin) Allergy Rash Verified 05/23/24 05:23 simvastatin Allergy Rash Verified 05/23/24 05:23 sulfamethoxazole Allergy Rash Verified 05/23/24 05:23 trimethoprim Allergy Rash/leg Verified 05/23/24 05:23 swelling bupropion AdvReac Severe worsened Verified 05/23/24 05:23 depression spironolactone AdvReac Intermediate Hair Loss Verified 05/23/24 05:23 adhesive tape AdvReac Itching Verified 05/23/24 05:23 ciprofloxacin AdvReac Itching Verified 05/23/24 05:23 Macrolide Antibiotics AdvReac Unknown Verified 05/23/24 05:23 Penicillins AdvReac Unknown Verified 05/23/24 05:23 Family History Father CAD (coronary artery disease) Hypertension Mother , age 55 Sudden cardiac Hypertension Abdominal aortic aneurysm rupture Brother Hypertension Sister Hypertension Surgical History History of right heart catheterization (02/19/24) H/O bilateral salpingo-oophorectomy (01/2020) History of robot-assisted laparoscopic hysterectomy (01/2020) Resection of subaortic membrane (2002) History of tubal ligation HX venous access device placed History of mechanical aortic valve replacement (05/13/16) History of mitral valve replacement with mechanical valve (05/13/16) Social History household members: spouse number of children: 4 current occupational status: unemployed history of recent travel: No sexually active: Yes Smoking Status: Never smoker alcohol intake: never substance use type: does not use diet: low carbohydrate caffeine: No what type of physical activity do you participate in: walking seatbelt use: always do you feel safe at home: Yes additional social history: - Dylan DAIGLE ROS Narrative Constitutional: Reports fatigue and weakness. No fever. HEENT: Reports systems reviewed and no addt'l complaints, except as documented Respiratory/Chest: No acute shortness of breath or respiratory distress or wheezing. CVS: No chest pressure or tight Gastrointestinal: Denies coffee ground emesis, hematemesis or vomiting Genitourinary: Denies burning urination or new urinary tract symptoms Musculoskeletal: Generalized aches and pain. No acute injury Neurologic: Denies seizure-like symptoms. skin: No ulcer. No rash Endocrinology: Reports systems reviewed and no addt'l complaints, except as documented Hematologic/Lymphatic: Reports systems reviewed and no addt'l complaints, except as documented Rest 14 ROS are negative except as mentioned in HPI Vital Signs Vital Signs Vital Signs: 05/23/24 05:23 05/23/24 05:27 Temperature 98.0 F Temperature Source Oral Pulse Rate 65 Respiratory Rate 16 Blood Pressure 106/65 Blood Pressure Mean 78 Pulse Ox 93 Oxygen Delivery Method Nasal Cannula Nasal Cannula Oxygen Flow Rate (L/min) 4 4 Weight Weight: 226 lb 10.163 oz Body Mass Index (BMI) 35.4 Physical Exam Narrative General: Alert, Oriented x3, Cooperative HEENT: Atraumatic, PERRLA, EOMI, Normocephalic Oral: Oral mucosa dry no Gingival or Mucosal Lesions/ Ulcerations Neck: Supple, No JVD, Negative Carotid Bruits Chest wall/Lungs: Air entry diminished in bilateral lung bases. No crepitation/rhonchi/wheeze Cardiovascular: Sinus Rhythm, Normal S1, Normal S2, mechanical valve sound Abdomen: Bowel Sounds Present, Soft, Non Tender, Non-Distended : No dysuria. No renal angle tenderness. No suprapubic tenderness. Extremities: No edema, Capillary Refill Less than 3 Seconds Skin: No rashes, No breakdown Musculoskeletal: No Tenderness to Palpation of Joints or Extremities. ROM restricted knee joints. Neurological: Cranial nerves II-XII grossly intact, DTR 2+/4. No acute focal neurological deficit. Psych/Mental Status: Normal Affect, Appropriate. Results Lab / Micro Data 05/23/24 05:49 05/23/24 05:49 Labs: Laboratory Results - last 24 hr 05/23/24 05:44: PT 28.3 H, INR 2.6 05/23/24 05:49: WBC 6.0, RBC 3.55 L, Hgb 10.1 L, Hct 33.2 L, MCV 93.5, MCH 28.5, MCHC 30.4 L, RDW Std Deviation 55.1 H, RDW Coeff of Ham 15.9 H, Plt Count 237, MPV 9.6, Immature Gran % (Auto) 0.500, Neut % (Auto) 68.5, Lymph % (Auto) 16.8 L, [place] % (Auto) 11.2 H, Eos % (Auto) 2.7, Baso % (Auto) 0.3, Absolute Neuts (auto) 4.1, Absolute Lymphs (auto) 1.00, Nucleated RBC % 0, Sodium 134 L, Potassium 3.7, Chloride 95 L, Carbon Dioxide 31.0, Anion Gap 9, BUN 30 H, Creatinine 1.24 H, Estim Creat Clear Calc 57.98, Est GFR (MDRD) Af Amer 56 L, Est GFR (MDRD) Non-Af 47 L, BUN/Creatinine Ratio 24.2 H, Glucose 140 H, Calcium 8.9, Troponin I High Sens 26 05/23/24 06:08: Urine Color Yellow, Urine Clarity Sl. Cloudy, Urine pH 6.0, Ur Specific [place] 1.015, Urine Protein 500 H, Urine Glucose (UA) 100 H, Urine Ketones Negative, Urine Occult Blood 10 H, Urine Nitrite Negative, Urine Bilirubin Negative, Urine Urobilinogen 1 H, Ur Leukocyte Esterase 100 H, Urine RBC 0 SEEN, Urine WBC >100 SEEN, Ur Squamous Epith Cells 5-10 SEEN, Ur Transition Epith Cell 5-10 SEEN, Urine Bacteria 3+, Hyaline Casts 0-5 SEEN, Urine Mucus 1+ Micro: Microbiology 05/23/24 05:40 Mucosa - Nasopharyngeal SARS-CoV-2, Influenza & RSV (PCR) - Final Imaging Radiology Impression Brain CT 05/23/24 05:37 IMPRESSION: No CT evidence of acute intracranial pathology. Reading [facility] Knee X-Ray 05/23/24 05:37 IMPRESSION: Degenerative changes with no acute osseous abnormality of the left knee. Reading Location: [facility] Shoulder X-Ray 05/23/24 05:37 IMPRESSION: Moderate degenerative changes and CPPD arthropathy of the left shoulder with no acute osseous abnormality Reading Location: [facility] Foot X-Ray 05/23/24 06:20 IMPRESSION: Degenerative changes with no acute osseous abnormality of the left foot. Reading Location: [facility] Chest X-Ray 05/23/24 07:10 IMPRESSION: 1. Moderate cardiomegaly with pulmonary vascular congestion. 2. Mild right pleural effusion with overlying airspace disease 3. 3 cm midlung zone nodular mass. Consider noncontrast CT scan of the chest for further evaluation Reading Location[facility] Assessment & Plan Assessment/Plan (1) Weakness: (2) Fall: PLAN: Plan This 64-year-old female being admitted for acute generalized weakness and fall 1. Generalized weakness fatigue and fall, exact etiology unclear possible HF exacerbation: Patient is being admitted in PCU. CT head, knee x-ray, shoulder x-ray and foot x-ray did not show any acute osseous abnormality. PT and OT ordered. 2. Possible mild heart failure exacerbation, acute on chronic HFpEF: Chest x-ray initially reviewed and shows mild pulmonary venous congestion and cardiomegaly. Lasix 20 mg IV as patient blood pressure is soft. Heart failure core measures including intake and output, fluid restriction less than 1500 mL, daily weight monitoring, kidney and electrolytes monitoring. 3. Multiple cardiac conditions: Paroxysmal A-fib, mechanical aortic and mitral valve replacement, left bundle branch bloc: Patient follows Dr. Whelan. Last seen in cardiology office in May 2013. She had a stress test in [facility] in which was negative for ischemia. Last echo in February 27 shows EF 69%, dilated RV. Mean AV gradient 20 mmHg, Mean mitral valve gradient 4 mm AGP twelve-lead EKG shows A-fib, LAD, chronic LBBB, at 66 bpm. No change from previous EKG of February 2024. Continue home cardiac medications. 4. Pulmonary hypertension: Patient follows pulmonary clinic with Dr. Garvin is referred to [facility]. She is trying to make appointment with Dr. Joshua Sparks 5. Obstructive sleep apnea/asthma. Continue nocturnal PAP therapy. Bronchodilator as needed. 6. Obesity grade 2, anxiety, depression and GERD: Home medication patient on Living will/advanced directive/end of life care: Patient does not have living will or advanced directive. Her is next of kin. After discussion of benefits/risks procedures involved with full code, DNR CC arrest and DNR CC, the patient opted for full code. Patient does want artificial life support including intubation, tube feed, ventilator and/chest compression, central venous catheter, vasopressor and DC shock if needed Total time spent in [id number] encounter in discussion of advanced directive 17 minutes. Microbiology Past 72 Hours 05/23/24 05:40 Mucosa - Nasopharyngeal SARS-CoV-2, Influenza & RSV (PCR) - Final Laboratory Results 05/23/24 05:44: PT 28.3 H, INR 2.6 05/23/24 05:49: WBC 6.0, RBC 3.55 L, Hgb 10.1 L, Hct 33.2 L, MCV 93.5, MCH 28.5, MCHC 30.4 L, RDW Std Deviation 55.1 H, RDW Coeff of Ham 15.9 H, Plt Count 237, MPV 9.6, Immature Gran % (Auto) 0.500, Neut % (Auto) 68.5, Lymph % (Auto) 16.8 L, [place] % (Auto) 11.2 H, Eos % (Auto) 2.7, Baso % (Auto) 0.3, Absolute Neuts (auto) 4.1, Absolute Lymphs (auto) 1.00, Nucleated RBC % 0, Sodium 134 L, Potassium 3.7, Chloride 95 L, Carbon Dioxide 31.0, Anion Gap 9, BUN 30 H, Creatinine 1.24 H, Estim Creat Clear Calc 57.98, Est GFR (MDRD) Af Amer 56 L, Est GFR (MDRD) Non-Af 47 L, BUN/Creatinine Ratio 24.2 H, Glucose 140 H, Calcium 8.9, Magnesium 2.7 H, Troponin I High Sens 26 05/23/24 06:08: Urine Color Yellow, Urine Clarity Sl. Cloudy, Urine pH 6.0, Ur Specific [place] 1.015, Urine Protein 500 H, Urine Glucose (UA) 100 H, Urine Ketones Negative, Urine Occult Blood 10 H, Urine Nitrite Negative, Urine Bilirubin Negative, Urine Urobilinogen 1 H, Ur Leukocyte Esterase 100 H, Urine RBC 0 SEEN, Urine WBC >100 SEEN, Ur Squamous Epith Cells 5-10 SEEN, Ur Transition Epith Cell 5-10 SEEN, Urine Bacteria 3+, Hyaline Casts 0-5 SEEN, Urine Mucus 1+ Clinical Impression(s) from Imaging Studies Brain CT 05/23/24 05:37 IMPRESSION: No CT evidence of acute intracranial pathology. Knee X-Ray 05/23/24 05:37 IMPRESSION: Degenerative changes with no acute osseous abnormality of the left knee. Shoulder X-Ray 05/23/24 05:37 IMPRESSION: Moderate degenerative changes and CPPD arthropathy of the left shoulder with no acute osseous abnormality Foot X-Ray 05/23/24 06:20 IMPRESSION: Degenerative changes with no acute osseous abnormality of the left foot. Chest X-Ray 05/23/24 07:10 IMPRESSION: 1. Moderate cardiomegaly with pulmonary vascular congestion. 2. Mild right pleural effusion with overlying airspace disease 3. 3 cm midlung zone nodular mass. Consider noncontrast CT scan of the chest for further evaluation Reading Location: [facility] Charges/Coding Visit Charges Inpatient E&M: 35423 Init Hosp L3 Procedures Hospitalists Procedures: 32498 Advncd Care Plan 30 Min
[2024-05-23] MEDS: MethylPREDNISolone 125 MG/2 ML Vial 60 MG IV (08:39)
[2024-05-23 08:53] LABS: Magnesium 2.7 mg/dL (1.6-2.6)
[2024-05-23] MEDS: oxyCODONE 5 MG Tablet PO (09:45)
[2024-05-23] MEDS: 0.9% Saline Lock 10 ML Syringe IV ×2 (09:46→15:31)
[2024-05-23] MEDS: Acetaminophen 325 MG Tablet 650 MG PO ×2 (09:46→22:57)
[2024-05-23] MEDS: KCL 20MEQ in 0.9% NS 20 MEQ/1,000 ML IV.SOLN. 100 MEQ IV (09:56)
[2024-05-23] MEDS: Senna/Docusate Sodium 1 Tablet 2 TABLET PO ×2 (10:41→21:28)
--- NOTE | 2024-05-23 14:17 | CHAPLAIN ---
Type of Pastoral Visit _x_ Initial Visit ___ Follow-up Visit ___ On-call Visit ___ General Patient Visit ___ Spiritual Assessment ___ Family Conference ___ Bereavement ___ Rapid Response ___ Code Blue ___ Other (describe below) Pastoral Care Referral From _x__ Patient ___ Family ___ Nurse ___ Physician ___ Fur Liner ___ Supervisor Costuming ___ Other (describe below) Sacrament/Intervention _x__ Active listening ___ Anointing ___ Bahai ___ Bereavement ___ Communion _x__ Iesha exploration ___ ___ Life review _x__ Prayer ___ Reconciliation ___ Sacrament of Sick _x__ Supportive presence ___ Wedding ___ Other (describe below) Pastoral Comments patient reviews health needs; pt is concerned for her family, bills to be paid, and more stress; pt has strong iesha in God; spouse and daughter come into room at this time; prayer and presence given
[2024-05-23 15:18] LABS: BNP,B-Type NATRIURETIC PEPTIDE 371.5 pg/mL (0-100)
[2024-05-23] MEDS: Furosemide 20 MG/2 ML VIAL IV (15:31)
--- NOTE | 2024-05-23 15:45 | CASEMGMT ---
RN CM Face to Face with patient for initial transition planning/care coordination assessment. RN CM introduced self and role at [facility]. Patient lying in bed, alert and oriented. Patient willing to participate in assessment and is able to answer all questions appropriately. Care providers, pharmacy, and demographics verified. Strata: 3 PCP: Gadiel PERSONNEL RECORDS CLERK Specialists: Tip, real estate salesperson; Griselda Garvin, automobile drivers [facility] Prescription Benefit: yes Living Will/HPOA: none, interested in completing, SW notified LNOK: , daughter Living Arrangements: Patient lives with in a 2 story home with bed and bath on first floor. Patient states she is independent at home. Transportation: self, DME/HHC: Patient has shower chair, walker, cpap, nebuilzer, pulse ox, and oxygen at 4lpm with [employer] with POC. No previous HHC. Patient has been to [facility] in the past. Patient wishes to discharge home, denies need for home health at this time, will monitor for HHC or outpatient therapy at discharge. Patient states she has no further needs or concerns at this time. CM to follow for discharge planning needs that may arise. Disposition Plan: Patient to discharge home with family support and follow-up plans in place. Will monitor for HHC vs Outpatient therapy. Latosha SMITH, RN, CM
[2024-05-23] MEDS: Albuterol 2.5 MG/3 ML VIAL.NEB. INHALATION (19:50)
[2024-05-23] MEDS: Budesonide Respules 0.5 MG/2 ML AMPUL.NEB. INHALATION (19:50)
[2024-05-23] MEDS: Gabapentin 300 MG Capsule PO (21:32)
[2024-05-23] MEDS: Pantoprazole Sodium 40 MG Tablet PO (21:33)
[2024-05-23] MEDS: Metoprolol Tartrate 25 MG Tablet PO (21:33)
[2024-05-23] MEDS: Bumetanide 2 MG Tablet PO (21:34)
[2024-05-23] MEDS: MELATONIN 10 MG TABLET 5 MG PO (21:34)
[2024-05-23] MEDS: Azelastine HCl NASAL.SRY 2 SPRAY NASAL (21:35)
[2024-05-24] VITALS (14 sets, daily range): BP systolic 101–130; BP diastolic 54–68; PULSE 54–84; RESP 16–20; TEMP 36.4–36.9; O2SAT 96–100; BMI 35.8
--- NOTE | 2024-05-24 00:03 | CPS ---
Set up pt's home CPAP unit with 5 lpm O2 bleed in.
[2024-05-24 06:01] LABS: Absolute Lymphocyte Count 0.98 X10^3/uL (0.83-4.51); Absolute Neutrophil Count 6.5 X10^3/uL (2.0-7.7); Basophil# 0.02 X10^3/uL; Basophil% 0.2 % (0-1); Eosinophil# 0.03 X10^3/uL; Eosinophils% 0.4 % (0-5); Hematocrit 30.5 % (37-47); Hemoglobin 9.5 g/dL (12.0-15.0); Lymphocyte # 0.98 X10^3/ul (0.83-4.51); Lymphocyte % 11.7 % (19-41); Mean Corp Hgb Conc 31.1 g/dL (32-36); Mean Corpuscular Hgb 29.3 pg (27.0-32.0); Mean Corpuscular Volume 94.1 fL (81-99); Mean Platelet Vol. 9.8 fl (6.2-12.0); Monocyte% 9.5 % (0-10); NRBC Flagged by Analyzer 0 % (0-5); Neutrophil # 6.53 X10^3/uL (2.7-7.7); Neutrophil % 77.7 % (47-70); Platelet Count 225 K/mm3 (150-450); RBC Distribution Width CV 15.9 % (11.6-14.6); RBC Distribution Width SD 54.9 fl (35.1-43.9); Red Blood Count 3.24 M/mm3 (4.2-5.4); White Blood Count 8.4 K/mm3 (4.4-11.0)
[2024-05-24 06:21] LABS: International Normalized Ratio 3.6; Prothrombin Time (Protime)PT. 36.8 SECONDS (11.7-14.9)
[2024-05-24 06:25] LABS: Phosphorus 4.7 mg/dL (2.5-4.9)
[2024-05-24 06:33] LABS: Anion Gap 7 (5-15); BUN 27 mg/dL (7-18); BUN/Creat Ratio 24.5 RATIO (10-20); Calcium,Total 9.1 mg/dL (8.5-10.1); Chloride 100 mmol/L (98-107); EST Glomerular Filtration Rate 54 mL/min (>60); Est Glom Filt Rate - Afr Amer 65 mL/min (>60); Estimated Creatinine Clearance 65.66 ml/min; Glucose 110 mg/dL (74-106); Potassium 4.5 mmol/L (3.5-5.1); Sodium Level 137 mmol/L (136-145)
[2024-05-24] MEDS: Albuterol 2.5 MG/3 ML VIAL.NEB. INHALATION (08:13)
[2024-05-24] MEDS: Budesonide Respules 0.5 MG/2 ML AMPUL.NEB. INHALATION ×2 (08:13→20:32)
[2024-05-24] MEDS: Potassium Chloride Oral Tablet 20 MEQ PO (11:02)
[2024-05-24] MEDS: Gabapentin 300 MG Capsule PO ×2 (11:03→21:47)
[2024-05-24] MEDS: Magnesium Chloride 64 MG Delay Rel.Tablet 128 MG PO (11:03)
[2024-05-24] MEDS: Fluticasone 0.05% 1 SPRAY NASAL.SRY 2 SPRAY NASAL (11:03)
[2024-05-24] MEDS: Bumetanide 1 MG/4 ML Vial 2 MG IV ×2 (11:04→18:11)
[2024-05-24] MEDS: Spironolactone 50 MG Tablet PO (11:05)
[2024-05-24] MEDS: Azelastine HCl NASAL.SRY 2 SPRAY NASAL ×2 (11:05→21:42)
[2024-05-24] MEDS: Loratadine 10 MG Tablet PO (11:06)
[2024-05-24] MEDS: Senna/Docusate Sodium 1 Tablet 2 TABLET PO ×2 (11:06→21:42)
[2024-05-24] MEDS: Pantoprazole Sodium 40 MG Tablet PO ×2 (11:06→21:49)
[2024-05-24] MEDS: Metoprolol Tartrate 25 MG Tablet PO ×2 (11:07→21:43)
[2024-05-24] MEDS: Ergocalciferol 1.25 MG (50, 000 UNIT) Capsule PO (11:50)
--- NOTE | 2024-05-24 13:15 | RAD_ITS ---
EXAM: SPECIAL CXR (OBL/DECUB/A/L) CLINICAL HISTORY: Right effusion COMPARISON: Chest radiographs dated 05/24/2024 TECHNIQUE: Multiple views of the right lung reperformed including decubitus views FINDINGS: There is a moderate layering pleural effusion. Heart size is enlarged. Nodular opacity in the right lung. RAD/Special CXR (Obl/Decub/A/L) IMPRESSION: Moderate right-sided pleural effusion Reading Location: [facility]
--- NOTE | 2024-05-24 13:15 | RAD_ITS ---
PROCEDURE: CHEST PA AND LATERAL REASON FOR EXAM: Bilateral effusions TECHNIQUE: Frontal and lateral views of the chest. COMPARISON: 05/23/2024 FINDINGS: There is severe cardiomegaly. There are atherosclerotic calcifications of the thoracic aorta. There are chronic-appearing changes of both lungs. Moderate right pleural effusion. Stable right middle lobe mass. Degenerative changes are identified within the thoracic spine. RAD/Chest PA and Lateral IMPRESSION: Cardiomegaly with chronic interstitial disease and interval increase in right p leural effusion with overlying airspace disease. Reading Location: [facility]
--- NOTE | 2024-05-24 13:22 | CASEMGMT ---
Social Work Pt asked to complete LW/POA documents. Pt completed LW/POA documents w/SW. Pt given originals and and copies, and copies were placed on the chart. Pt named her Isaac as healthcare POA, and her daughter Selam as the alternate. SHAY Powell
--- NOTE | 2024-05-24 13:29 | PCM.PN.HOSP ---
Reason for Visit Reason for Visit: Diagnoses Weakness (05/23/24) Unspecified fall, initial encounter (05/23/24) Objective Data Objective Data Vital Signs: Vital Signs Temp Pulse Resp BP Pulse Ox O2 Del Method O2 Flow Rate 97.6 F L 68 20 H 114/54 L 100 Nasal Cannula 4 05/24/24 10:59 05/24/24 11:07 05/24/24 10:59 05/24/24 11:07 05/24/24 10:59 05/24/24 10:59 05/24/24 11:54 Oxygen Flow Rate (L/min) 4 Oxygen Delivery Method Nasal Cannula Weight: 228 lb 9.91 oz Body Mass Index (BMI) 35.8 Intake & Output: Intake and Output for Last 24 Hours 05/22/24 05/23/24 05/24/24 23:59 23:59 23:59 Intake Total 1840 / 1840 440 / 440 Balance 1840 / 1840 440 / 440 Lab / Micro Data 05/24/24 05:39 05/24/24 05:39 Labs: Laboratory Results - last 24 hr 05/23/24 05:49: B-Natriuretic Peptide 371.5 H 05/24/24 05:39: WBC 8.4, RBC 3.24 L, Hgb 9.5 L, Hct 30.5 L, MCV 94.1, MCH 29.3, MCHC 31.1 L, RDW Std Deviation 54.9 H, RDW Coeff of Ham 15.9 H, Plt Count 225, MPV 9.8, Immature Gran % (Auto) 0.500, Neut % (Auto) 77.7 H, Lymph % (Auto) 11.7 L, [place] % (Auto) 9.5, Eos % (Auto) 0.4, Baso % (Auto) 0.2, Absolute Neuts (auto) 6.5, Absolute Lymphs (auto) 0.98, Nucleated RBC % 0, PT 36.8 H, INR 3.6, Sodium 137, Potassium 4.5, Chloride 100, Carbon Dioxide 30.0, Anion Gap 7, BUN 27 H, Creatinine 1.10 H, Estim Creat Clear Calc 65.66, Est GFR (MDRD) Af Amer 65, Est GFR (MDRD) Non-Af 54 L, BUN/Creatinine Ratio 24.5 H, Glucose 110 H, Calcium 9.1, Phosphorus 4.7 Micro: Microbiology 05/23/24 06:08 Urine, Random Urine Culture - Preliminary Gram negative adrian 05/23/24 05:40 Mucosa - Nasopharyngeal SARS-CoV-2, Influenza & RSV (PCR) - Final Physical Exam Narrative Seen and examined. Patient is still symptomatic with mild shortness of breath, requires 4 to 5 L of oxygen. Mild cough. Has chronic allergic rhinitis and postnasal drip. Physical exam General: Alert, Oriented x3, Cooperative HEENT: Atraumatic, PERRLA, EOMI, Normocephalic Oral: Oral mucosa dry no Gingival or Mucosal Lesions/ Ulcerations Neck: Supple, No JVD, Negative Carotid Bruits Chest wall/Lungs: Air entry diminished in right lung base compared to left. Mild expiratory rhonchi. Cardiovascular: Sinus Rhythm, Normal S1, Normal S2, mechanical valve sound Abdomen: Bowel Sounds Present, Soft, Non Tender, Non-Distended : No dysuria. No renal angle tenderness. No suprapubic tenderness. Extremities: No ankle pedal edema, Capillary Refill Less than 3 Seconds Skin: No rashes, No breakdown Musculoskeletal: No Tenderness to Palpation of Joints or Extremities. ROM restricted knee joints. Neurological: Cranial nerves II-XII grossly intact, DTR 2+/4. No acute focal neurological deficit. Psych/Mental Status: Flat affect. Assessment & Plan Assessment/Plan (1) Weakness: (2) Fall: PLAN: Plan This 64-year-old female being admitted for acute generalized weakness and fall 1. Generalized weakness fatigue and fall, exact etiology unclear possible HF exacerbation: Patient is being admitted in PCU. CT head, knee x-ray, shoulder x-ray and foot x-ray did not show any acute osseous abnormality. PT and OT ordered. 2. Possible mild heart failure exacerbation, acute on chronic HFpEF: Chest x-ray initially reviewed and shows mild pulmonary venous congestion and cardiomegaly. Lasix 20 mg IV as patient blood pressure is soft. Heart failure core measures including intake and output, fluid restriction less than 1500 mL, daily weight monitoring, kidney and electrolytes monitoring. 05/24: Repeat chest x-ray was done. Pulmonary congestion, right basilar opacity and blunting of CP angle. About 3 cm right midlung zone nodular mass. Mild right pleural effusion. Official report is pending. With more right basilar opacity and diminished lung sound, started on IV ceftriaxone and doxycycline and IV Solu-Medrol and IV Solu-Medrol. 3. Multiple cardiac conditions: Paroxysmal A-fib, mechanical aortic and mitral valve replacement, left bundle branch bloc: Patient follows Dr. Whelan. Last seen in cardiology office in May 2013. She had a stress test in [facility] in which was negative for ischemia. Last echo in February 27 shows EF 69%, dilated RV. Mean AV gradient 20 mmHg, Mean mitral valve gradient 4 mm AGP twelve-lead EKG shows A-fib, LAD, chronic LBBB, at 66 bpm. No change from previous EKG of February 2024. Continue home cardiac medications. 4. Pulmonary hypertension: Patient follows pulmonary clinic with Dr. Garvin is referred to [facility]. She is trying to make appointment with Dr. Joshua Sparks 5. Obstructive sleep apnea/asthma. Continue nocturnal PAP therapy. Bronchodilator as needed. 6. Obesity grade 2, anxiety, depression and GERD: Home medication patient on Living will/advanced directive/end of life care: Patient does not have living will or advanced directive. Her is next of kin. After discussion of benefits/risks procedures involved with full code, DNR CC arrest and DNR CC, the patient opted for full code. Patient does want artificial life support including intubation, tube feed, ventilator and/chest compression, central venous catheter, vasopressor and DC shock if needed Total time spent in [id number] encounter in discussion of advanced directive 17 minutes. Microbiology Past 72 Hours 05/23/24 05:40 Mucosa - Nasopharyngeal SARS-CoV-2, Influenza & RSV (PCR) - Final Laboratory Results 05/23/24 05:44: PT 28.3 H, INR 2.6 05/23/24 05:49: WBC 6.0, RBC 3.55 L, Hgb 10.1 L, Hct 33.2 L, MCV 93.5, MCH 28.5, MCHC 30.4 L, RDW Std Deviation 55.1 H, RDW Coeff of Ham 15.9 H, Plt Count 237, MPV 9.6, Immature Gran % (Auto) 0.500, Neut % (Auto) 68.5, Lymph % (Auto) 16.8 L, [place] % (Auto) 11.2 H, Eos % (Auto) 2.7, Baso % (Auto) 0.3, Absolute Neuts (auto) 4.1, Absolute Lymphs (auto) 1.00, Nucleated RBC % 0, Sodium 134 L, Potassium 3.7, Chloride 95 L, Carbon Dioxide 31.0, Anion Gap 9, BUN 30 H, Creatinine 1.24 H, Estim Creat Clear Calc 57.98, Est GFR (MDRD) Af Amer 56 L, Est GFR (MDRD) Non-Af 47 L, BUN/Creatinine Ratio 24.2 H, Glucose 140 H, Calcium 8.9, Magnesium 2.7 H, Troponin I High Sens 26 05/23/24 06:08: Urine Color Yellow, Urine Clarity Sl. Cloudy, Urine pH 6.0, Ur Specific [place] 1.015, Urine Protein 500 H, Urine Glucose (UA) 100 H, Urine Ketones Negative, Urine Occult Blood 10 H, Urine Nitrite Negative, Urine Bilirubin Negative, Urine Urobilinogen 1 H, Ur Leukocyte Esterase 100 H, Urine RBC 0 SEEN, Urine WBC >100 SEEN, Ur Squamous Epith Cells 5-10 SEEN, Ur Transition Epith Cell 5-10 SEEN, Urine Bacteria 3+, Hyaline Casts 0-5 SEEN, Urine Mucus 1+ Clinical Impression(s) from Imaging Studies Brain CT 05/23/24 05:37 IMPRESSION: No CT evidence of acute intracranial pathology. Knee X-Ray 05/23/24 05:37 IMPRESSION: Degenerative changes with no acute osseous abnormality of the left knee. Shoulder X-Ray 05/23/24 05:37 IMPRESSION: Moderate degenerative changes and CPPD arthropathy of the left shoulder with no acute osseous abnormality Foot X-Ray 05/23/24 06:20 IMPRESSION: Degenerative changes with no acute osseous abnormality of the left foot. Chest X-Ray 05/23/24 07:10 IMPRESSION: 1. Moderate cardiomegaly with pulmonary vascular congestion. 2. Mild right pleural effusion with overlying airspace disease 3. 3 cm midlung zone nodular mass. Consider noncontrast CT scan of the chest for further evaluation Reading Location: [facility]
[2024-05-24] MEDS: Ipratropium/Albuterol Sulfate 3 ML AMPUL.NEB INHALATION ×2 (14:26→20:32)
[2024-05-24] MEDS: 0.9% Saline Lock 10 ML Syringe IV ×2 (15:49→18:11)
[2024-05-24] MEDS: Ceftriaxone 1 GM/50 ML BAG IV (15:49)
[2024-05-24] MEDS: Doxycycline 100 MG CAPSULE PO ×2 (15:50→21:42)
[2024-05-24] MEDS: Acetaminophen 325 MG Tablet 650 MG PO (21:47)
[2024-05-24] MEDS: MELATONIN 10 MG TABLET 5 MG PO (21:47)
[2024-05-25] VITALS (10 sets, daily range): BP systolic 102–113; BP diastolic 49–89; PULSE 56–80; RESP 16–20; TEMP 36–36.9; O2SAT 94–100; BMI 36.1
[2024-05-25 07:19] LABS: Absolute Lymphocyte Count 0.52 X10^3/uL (0.83-4.51); Absolute Neutrophil Count 5.9 X10^3/uL (2.0-7.7); Basophil# 0.01 X10^3/uL; Basophil% 0.1 % (0-1); Hematocrit 33.4 % (37-47); Hemoglobin 10.6 g/dL (12.0-15.0); Lymphocyte # 0.52 X10^3/ul (0.83-4.51); Lymphocyte % 7.7 % (19-41); Mean Corp Hgb Conc 31.7 g/dL (32-36); Mean Corpuscular Hgb 29.8 pg (27.0-32.0); Mean Corpuscular Volume 93.8 fL (81-99); Mean Platelet Vol. 10.3 fl (6.2-12.0); Monocyte# 0.28 X10^3/uL; Monocyte% 4.1 % (0-10); NRBC Flagged by Analyzer 0 % (0-5); Neutrophil # 5.89 X10^3/uL (2.7-7.7); Neutrophil % 87.4 % (47-70); POSITIVE DIFFERENTIAL YES; Platelet Count 244 K/mm3 (150-450); RBC Distribution Width CV 15.9 % (11.6-14.6); RBC Distribution Width SD 55.3 fl (35.1-43.9); Red Blood Count 3.56 M/mm3 (4.2-5.4); White Blood Count 6.8 K/mm3 (4.4-11.0)
[2024-05-25] MEDS: Budesonide Respules 0.5 MG/2 ML AMPUL.NEB. INHALATION ×2 (07:26→22:27)
[2024-05-25] MEDS: Ipratropium/Albuterol Sulfate 3 ML AMPUL.NEB INHALATION ×3 (07:26→22:27)
[2024-05-25 07:28] LABS: International Normalized Ratio 3.9; Prothrombin Time (Protime)PT. 39.1 SECONDS (11.7-14.9)
[2024-05-25] MEDS: Azelastine HCl NASAL.SRY 2 SPRAY NASAL ×2 (08:14→22:52)
[2024-05-25] MEDS: Potassium Chloride Oral Tablet 20 MEQ PO (08:14)
[2024-05-25] MEDS: Fluticasone 0.05% 1 SPRAY NASAL.SRY 2 SPRAY NASAL (08:14)
[2024-05-25 08:24] LABS: Anion Gap 5 (5-15); BUN 27 mg/dL (7-18); BUN/Creat Ratio 25.2 RATIO (10-20); Calcium,Total 9.1 mg/dL (8.5-10.1); Chloride 100 mmol/L (98-107); Creatinine, Serum 1.07 mg/dL (0.55-1.02); EST Glomerular Filtration Rate 55 mL/min (>60); Est Glom Filt Rate - Afr Amer 67 mL/min (>60); Estimated Creatinine Clearance 67.78 ml/min; Glucose 149 mg/dL (74-106); Potassium 4.8 mmol/L (3.5-5.1); Sodium Level 137 mmol/L (136-145)
--- NOTE | 2024-05-25 10:12 | US_ITS ---
PROCEDURE: CHEST REASON FOR EXAM: 64-year-old female, evaluation of right pleural effusion. TECHNIQUE: Ultrasound imaging of the bilateral chest for fluid evaluation. COMPARISON: Chest radiograph 05/24/2024. FINDINGS: Pleural fluid evaluation of the lungs demonstrated no visualized fluid bilaterally. US/Chest IMPRESSION: No visualized pleural fluid bilaterally. Reading Location: [facility]
[2024-05-25 11:01] LABS: ALB/GLOB Ratio 0.6 RATIO (0.9-2.4); Globulin 4.8 g/dL (2.2-4.2); LDH 333 U/L (84-246); Protein, Total 7.9 g/dL (6.4-8.2)
[2024-05-25] MEDS: Magnesium Chloride 64 MG Delay Rel.Tablet 128 MG PO (11:22)
[2024-05-25] MEDS: Senna/Docusate Sodium 1 Tablet 2 TABLET PO ×2 (11:22→22:52)
[2024-05-25] MEDS: Gabapentin 300 MG Capsule PO ×2 (11:22→22:49)
[2024-05-25] MEDS: Bumetanide 1 MG/4 ML Vial 2 MG IV ×2 (11:22→18:16)
[2024-05-25] MEDS: Loratadine 10 MG Tablet PO (11:22)
[2024-05-25] MEDS: Pantoprazole Sodium 40 MG Tablet PO ×2 (11:22→22:50)
[2024-05-25] MEDS: 0.9% Saline Lock 10 ML Syringe IV ×2 (11:23→18:15)
[2024-05-25] MEDS: Metoprolol Tartrate 25 MG Tablet PO ×2 (11:23→22:53)
[2024-05-25] MEDS: Doxycycline 100 MG CAPSULE PO ×2 (11:23→22:50)
[2024-05-25] MEDS: Spironolactone 50 MG Tablet PO (11:23)
[2024-05-25] MEDS: Ceftriaxone 1 GM/50 ML BAG IV (11:27)
[2024-05-25 13:10] LABS: International Normalized Ratio 3.6
--- NOTE | 2024-05-25 13:45 | PCM.PN.HOSP ---
Reason for Visit Reason for Visit: Diagnoses Weakness (05/23/24) Unspecified fall, initial encounter (05/23/24) Objective Data Objective Data Vital Signs: Vital Signs Temp Pulse Resp BP Pulse Ox O2 Del Method O2 Flow Rate 97.8 F 66 18 103/89 H 100 Nasal Cannula 4 05/25/24 09:00 05/25/24 11:23 05/25/24 09:00 05/25/24 09:00 05/25/24 09:00 05/25/24 09:00 05/25/24 09:00 Oxygen Flow Rate (L/min) 4 Oxygen Delivery Method Nasal Cannula Weight: 230 lb 6.129 oz Body Mass Index (BMI) 36.1 Intake & Output: Intake and Output for Last 24 Hours 05/23/24 05/24/24 05/25/24 23:59 23:59 23:59 Intake Total 1840 / 1840 490 / 1210 770 / 770 Balance 1840 / 1840 490 / 1210 770 / 770 Lab / Micro Data 05/25/24 06:58 05/25/24 06:58 Labs: Laboratory Results - last 24 hr 05/25/24 06:58: WBC 6.8, RBC 3.56 L, Hgb 10.6 L, Hct 33.4 L, MCV 93.8, MCH 29.8, MCHC 31.7 L, RDW Std Deviation 55.3 H, RDW Coeff of Ham 15.9 H, Plt Count 244, MPV 10.3, Immature Gran % (Auto) 0.700, Neut % (Auto) 87.4 H, Lymph % (Auto) 7.7 L, [place] % (Auto) 4.1, Eos % (Auto) 0.0, Baso % (Auto) 0.1, Absolute Neuts (auto) 5.9, Absolute Lymphs (auto) 0.52 L, Nucleated RBC % 0, PT 39.1 H, INR 3.9, Sodium 137, Potassium 4.8, Chloride 100, Carbon Dioxide 32.0, Anion Gap 5, BUN 27 H, Creatinine 1.07 H, Estim Creat Clear Calc 67.78, Est GFR (MDRD) Af Amer 67, Est GFR (MDRD) Non-Af 55 L, BUN/Creatinine Ratio 25.2 H, Glucose 149 H, Calcium 9.1, Lactate Dehydrogenase 333 H, Total Protein 7.9, Globulin 4.8 H, Albumin/Globulin Ratio 0.6 L 05/25/24 12:39: PT 37.0 H, INR 3.6 Micro: Microbiology 05/23/24 06:08 Urine, Random Urine Culture - Final Escherichia coli 05/23/24 05:40 Mucosa - Nasopharyngeal SARS-CoV-2, Influenza & RSV (PCR) - Final Radiography Diagnostic Testing: Radiology Impression Chest X-Ray 05/24/24 13:15 IMPRESSION: Cardiomegaly with chronic interstitial disease and interval increase in right pleural effusion with overlying airspace disease. [facility] Chest X-Ray 05/24/24 13:15 IMPRESSION: Moderate right-sided pleural effusion Reading Location: [facility] Physical Exam Narrative Seen and examined. Patient on 4 L of oxygen that she is on home oxygen. Chest x-ray shows moderate pleural effusion. Thoracocentesis ordered but patient cannot take them as INR is high at 3.9. Shortness of breath is better Physical exam General: Alert, Oriented x3, Cooperative HEENT: Atraumatic, PERRLA, EOMI, Normocephalic Oral: Oral mucosa dry no Gingival or Mucosal Lesions/ Ulcerations Neck: Supple, No JVD, Negative Carotid Bruits Chest wall/Lungs: Air entry diminished in right lung base compared to left. Right moderate pleural effusion mild rhonchi. Cardiovascular: Sinus Rhythm, Normal S1, Normal S2, mechanical valve sound Abdomen: Bowel Sounds Present, Soft, Non Tender, Non-Distended : No dysuria. No renal angle tenderness. No suprapubic tenderness. Extremities: No ankle pedal edema, Capillary Refill Less than 3 Seconds Skin: No rashes, No breakdown Musculoskeletal: No Tenderness to Palpation of Joints or Extremities. ROM restricted knee joints. Neurological: Cranial nerves II-XII grossly intact, DTR 2+/4. No acute focal neurological deficit. Psych/Mental Status: Flat affect. Assessment & Plan Assessment/Plan (1) Weakness: (2) Fall: PLAN: Plan This 64-year-old female being admitted for acute generalized weakness and fall 1. Generalized weakness fatigue and fall, exact etiology unclear possible HF exacerbation: Patient is being admitted in PCU. CT head, knee x-ray, shoulder x-ray and foot x-ray did not show any acute osseous abnormality. PT and OT ordered. Right moderate pleural effusion, underlying atelectasis and suspicion of pneumonia:05/25: Repeat chest x-ray PA and lateral antecubital shows increasing pleural effusion moderate therefore ultrasound-guided thoracocentesis ordered but patient cannot have it today as INR is 3.9. Warfarin held. Will monitor INR daily and if INR less than 2.5 will start on bridging enoxaparin. Patient also on baseline 4 L of oxygen therefore she wants to ask her mental health specialist Dr. Whelan regarding thoracocentesis. She is also scheduled outpatient CT chest without contrast for right middle lobe lung mass. Continue antibiotic. 2. Possible mild heart failure exacerbation, acute on chronic HFpEF: Chest x-ray initially reviewed and shows mild pulmonary venous congestion and cardiomegaly. Lasix 20 mg IV as patient blood pressure is soft. Heart failure core measures including intake and output, fluid restriction less than 1500 mL, daily weight monitoring, kidney and electrolytes monitoring. 05/24: Repeat chest x-ray was done. Pulmonary congestion, right basilar opacity and blunting of CP angle. About 3 cm right midlung zone nodular mass. Mild right pleural effusion. Official report is pending. With more right basilar opacity and diminished lung sound, started on IV ceftriaxone and doxycycline and IV Solu-Medrol and IV Solu-Medrol. 05/25: Continue antibiotic 3. Multiple cardiac conditions: Paroxysmal A-fib, mechanical aortic and mitral valve replacement, left bundle branch bloc: Patient follows Dr. Whelan. Last seen in cardiology office in May 2013. She had a stress test in [facility] in which was negative for ischemia. Last echo in February 27 shows EF 69%, dilated RV. Mean AV gradient 20 mmHg, Mean mitral valve gradient 4 mm AGP twelve-lead EKG shows A-fib, LAD, chronic LBBB, at 66 bpm. No change from previous EKG of February 2024. Continue home cardiac medications. 4. Pulmonary hypertension: Patient follows pulmonary clinic with Dr. Garvin is referred to [facility]. She is trying to make appointment with Dr. Joshua Sparks 5. Obstructive sleep apnea/asthma. Continue nocturnal PAP therapy. Bronchodilator as needed. 6. Obesity grade 2, anxiety, depression and GERD: Home medication patient on Living will/advanced directive/end of life care: Patient does not have living will or advanced directive. Her is next of kin. After discussion of benefits/risks procedures involved with full code, DNR CC arrest and DNR CC, the patient opted for full code. Patient does want artificial life support including intubation, tube feed, ventilator and/chest compression, central venous catheter, vasopressor and DC shock if needed Total time spent in [id number] encounter in discussion of advanced directive 17 minutes. Microbiology Past 72 Hours 05/23/24 06:08 Urine, Random Urine Culture - Final Escherichia coli 05/23/24 05:40 Mucosa - Nasopharyngeal SARS-CoV-2, Influenza & RSV (PCR) - Final Microbiology Past 72 Hours 05/23/24 05:40 Mucosa - Nasopharyngeal SARS-CoV-2, Influenza & RSV (PCR) - Final Laboratory Results 05/23/24 05:44: PT 28.3 H, INR 2.6 05/23/24 05:49: WBC 6.0, RBC 3.55 L, Hgb 10.1 L, Hct 33.2 L, MCV 93.5, MCH 28.5, MCHC 30.4 L, RDW Std Deviation 55.1 H, RDW Coeff of Ham 15.9 H, Plt Count 237, MPV 9.6, Immature Gran % (Auto) 0.500, Neut % (Auto) 68.5, Lymph % (Auto) 16.8 L, [place] % (Auto) 11.2 H, Eos % (Auto) 2.7, Baso % (Auto) 0.3, Absolute Neuts (auto) 4.1, Absolute Lymphs (auto) 1.00, Nucleated RBC % 0, Sodium 134 L, Potassium 3.7, Chloride 95 L, Carbon Dioxide 31.0, Anion Gap 9, BUN 30 H, Creatinine 1.24 H, Estim Creat Clear Calc 57.98, Est GFR (MDRD) Af Amer 56 L, Est GFR (MDRD) Non-Af 47 L, BUN/Creatinine Ratio 24.2 H, Glucose 140 H, Calcium 8.9, Magnesium 2.7 H, Troponin I High Sens 26 05/23/24 06:08: Urine Color Yellow, Urine Clarity Sl. Cloudy, Urine pH 6.0, Ur Specific [place] 1.015, Urine Protein 500 H, Urine Glucose (UA) 100 H, Urine Ketones Negative, Urine Occult Blood 10 H, Urine Nitrite Negative, Urine Bilirubin Negative, Urine Urobilinogen 1 H, Ur Leukocyte Esterase 100 H, Urine RBC 0 SEEN, Urine WBC >100 SEEN, Ur Squamous Epith Cells 5-10 SEEN, Ur Transition Epith Cell 5-10 SEEN, Urine Bacteria 3+, Hyaline Casts 0-5 SEEN, Urine Mucus 1+ Clinical Impression(s) from Imaging Studies Brain CT 05/23/24 05:37 IMPRESSION: No CT evidence of acute intracranial pathology. Knee X-Ray 05/23/24 05:37 IMPRESSION: Degenerative changes with no acute osseous abnormality of the left knee. Shoulder X-Ray 05/23/24 05:37 IMPRESSION: Moderate degenerative changes and CPPD arthropathy of the left shoulder with no acute osseous abnormality Foot X-Ray 05/23/24 06:20 IMPRESSION: Degenerative changes with no acute osseous abnormality of the left foot. Chest X-Ray 05/23/24 07:10 IMPRESSION: 1. Moderate cardiomegaly with pulmonary vascular congestion. 2. Mild right pleural effusion with overlying airspace disease 3. 3 cm midlung zone nodular mass. Consider noncontrast CT scan of the chest for further evaluation Reading Location: [facility] Chest X-Ray 05/24/24 13:15 IMPRESSION: Cardiomegaly with chronic interstitial disease and interval increase in right pleural effusion with overlying airspace disease. Chest X-Ray 05/24/24 13:15 IMPRESSION: Moderate right-sided pleural effusion Charges/Coding Visit Charges Inpatient E&M: 19985 Subs Hosp L2
--- NOTE | 2024-05-25 15:45 | CASEMGMT ---
HARIS PASCUAL NOTE: Noted pt ambulated 80 ft on Thursday w/use of WW and refused PT yesterday d/t feeling tired and shaky, but was able to work w/OT. HARIS PASCUAL to room. Introduced self and role. Pt states she has been getting up to the chair and bathroom today w/use of waker and w/staff assist, and states her balance is better than it had been. She states she has a walker @ home, wasn't using it before coming to the hospital, but plans to start using her walker @ home once she returns home. Discussed home-going needs. She declines wanting HHC. She states she may be interested in OP therapy, but wants to see how she does with therapy tomorrow and if they recommend it, then she would be interested. She denies having other discharge needs at this time. She states she has a POC w/her in her room to go home on @ discharge. Samy SMITH RN, CM
[2024-05-25] MEDS: MELATONIN 10 MG TABLET 5 MG PO (22:50)
[2024-05-26] VITALS (8 sets, daily range): BP systolic 109–125; BP diastolic 54–69; PULSE 61–77; RESP 16–18; TEMP 35.9–36.9; O2SAT 3–100; BMI 36.1
[2024-05-26 05:44] LABS: Absolute Lymphocyte Count 1.07 X10^3/uL (0.83-4.51); Absolute Neutrophil Count 5.7 X10^3/uL (2.0-7.7); Basophil# 0.03 X10^3/uL; Basophil% 0.4 % (0-1); Eosinophil# 0.07 X10^3/uL; Eosinophils% 0.9 % (0-5); Hematocrit 32.8 % (37-47); Hemoglobin 10.2 g/dL (12.0-15.0); Lymphocyte # 1.07 X10^3/ul (0.83-4.51); Lymphocyte % 13.7 % (19-41); Mean Corp Hgb Conc 31.1 g/dL (32-36); Mean Corpuscular Hgb 29.1 pg (27.0-32.0); Mean Corpuscular Volume 93.4 fL (81-99); Mean Platelet Vol. 10.1 fl (6.2-12.0); Monocyte# 0.91 X10^3/uL; Monocyte% 11.6 % (0-10); NRBC Flagged by Analyzer 0 % (0-5); Neutrophil # 5.71 X10^3/uL (2.7-7.7); Neutrophil % 72.9 % (47-70); Platelet Count 249 K/mm3 (150-450); RBC Distribution Width CV 16.1 % (11.6-14.6); RBC Distribution Width SD 54.9 fl (35.1-43.9); Red Blood Count 3.51 M/mm3 (4.2-5.4); White Blood Count 7.8 K/mm3 (4.4-11.0)
[2024-05-26 06:12] LABS: Prothrombin Time (Protime)PT. 32.1 SECONDS (11.7-14.9)
[2024-05-26 06:16] LABS: Anion Gap 5 (5-15); BUN 35 mg/dL (7-18); BUN/Creat Ratio 33.7 RATIO (10-20); Calcium,Total 9.1 mg/dL (8.5-10.1); Chloride 100 mmol/L (98-107); Creatinine, Serum 1.04 mg/dL (0.55-1.02); EST Glomerular Filtration Rate 57 mL/min (>60); Est Glom Filt Rate - Afr Amer 69 mL/min (>60); Estimated Creatinine Clearance 69.77 ml/min; Glucose 113 mg/dL (74-106); Potassium 3.8 mmol/L (3.5-5.1); Sodium Level 138 mmol/L (136-145)
[2024-05-26] MEDS: Ipratropium/Albuterol Sulfate 3 ML AMPUL.NEB INHALATION (07:30)
[2024-05-26] MEDS: Budesonide Respules 0.5 MG/2 ML AMPUL.NEB. INHALATION (07:30)
[2024-05-26] MEDS: Doxycycline 100 MG CAPSULE PO (09:15)
[2024-05-26] MEDS: Pantoprazole Sodium 40 MG Tablet PO (09:15)
[2024-05-26] MEDS: Senna/Docusate Sodium 1 Tablet 2 TABLET PO (09:16)
[2024-05-26] MEDS: Loratadine 10 MG Tablet PO (09:16)
[2024-05-26] MEDS: Azelastine HCl NASAL.SRY 2 SPRAY NASAL (09:16)
[2024-05-26] MEDS: Fluticasone 0.05% 1 SPRAY NASAL.SRY 2 SPRAY NASAL (09:16)
[2024-05-26] MEDS: Magnesium Chloride 64 MG Delay Rel.Tablet 128 MG PO (09:16)
[2024-05-26] MEDS: Spironolactone 25 MG Tablet 75 MG PO (09:17)
[2024-05-26] MEDS: Bumetanide 1 MG/4 ML Vial 2 MG IV (09:18)
[2024-05-26] MEDS: Metoprolol Tartrate 25 MG Tablet PO (09:19)
[2024-05-26] MEDS: Gabapentin 300 MG Capsule PO (10:25)
--- NOTE | 2024-05-26 10:25 | DCINST_ITS ---
Discharge Instructions Diet Discharge Diet: No restrictions DC O2, CPAP, BIPAP needs Home O2 Discharge instructions: Yes Type of respiratory needs?: Oxygen Oxygen frequency: Continuous Continuous oxygen liters per minute: 4 L/min Dressing / Incision Discharge Activity: Return to Normal Activity Weight Bearing Status: Weight bearing as tolerated Dressing / Incision Call your doctor if you observe: Fever of 101 or Higher, Coldness, Increased Pain, Numbness or Tingling, Change in Color, Inability to urinate, Inability to have a bowel movement, Shortness of breath, Dizziness, Fainting spells, Swelling in the ankles, Chest pain, Prolonged hiccupping, Increased palpitations (irregular heartbeat) and Calf discomfort Follow Up Care When: IN 2 WEEKS Test Results: Test results from this visit will be discussed in further detail at your follow- up appointment, if applicable. Discharge Plan Admission Admit Date/Time: 05/23/24 08:28 Primary Reason for Your Visit: Influenza A bronchitis Attending Provider: Stanley Villalba Primary Care Provider: Marcia Ramesh [facility] Discharge Orders/Prescriptions Prescriptions: New doxycycline monohydrate 100 mg Capsule 100 mg PO BID 5 Days Qty: 10 0RF cefdinir 300 mg capsule 300 mg PO BID 5 Days Qty: 10 0RF spironolactone 50 mg tablet 75 mg PO DAILY 30 Days Qty: 45 0RF Rx Instructions: Hold for serum potassium more than 5.0 Continued duloxetine [Cymbalta] 60 mg capsule,delayed release(DR/EC) 120 mg PO DAILY metoprolol tartrate 25 mg tablet 25 mg PO BID Qty: 180 3RF acetaminophen [Tylenol Extra Strength] 500 mg tablet 1,000 mg PO DAILY PRN (Reason: pain) albuterol sulfate [Ventolin HFA] 90 mcg/actuation HFA aerosol inhaler 2 puff INHALATION Q4H PRN (Reason: shortness of breath or wheezing) Qty: 8.5 6RF budesonide-formoterol [Symbicort] 160-4.5 mcg/actuation HFA aerosol inhaler 2 puff inhalation BID Qty: 10.2 6RF fluticasone propionate [Flonase Allergy Relief] 50 mcg/actuation spray,suspension 2 spray INTRANASAL QDAY Qty: 1 3RF Rx Instructions: administer into each nostril ipratropium-albuterol 0.5 mg-3 mg(2.5 mg base)/3 mL solution for nebulization 3 ml inhalation Q4H PRN PRN (Reason: SOB &/OR WHEEZING) Qty: 180 6RF loratadine 10 mg tablet 10 mg PO DAILY Qty: 90 3RF clobetasol 0.05 % cream 1 applic topical BID PRN (Reason: skin irritation) (DME) PEP device See Rx Instructions .ROUTE .MEDSUPPLY Qty: 1 0RF Rx Instructions: with training cholecalciferol (vitamin D3) 1,250 mcg (50,000 unit) capsule 1,250 mcg PO QWEEK Ozempic 0.25 mg or 0.5 mg (2 mg/3 mL) pen injector 0.5 mg subcut QWEEK diphenhydramine HCl [Benadryl Allergy] 25 mg tablet 12.5 mg PO QHS PRN (Reason: allergy symptoms) gabapentin 300 mg capsule 300 mg PO BID magnesium oxide 400 mg magnesium tablet 400 mg PO QDAY Hair,Skin and Nails Tablet 2 tab PO DAILY dapagliflozin propanediol [Farxiga] 10 mg tablet 10 mg PO QDAY Qty: 90 3RF acetylcysteine [NAC] 600 mg capsule 600 mg PO QDAY multivitamin with folic acid 1 TABLET tablet 1 tab PO DAILY melatonin 5 MG capsule 5 mg PO QHS omeprazole 40 mg capsule,delayed release(DR/EC) 40 mg PO BID diphenoxylate-atropine [Lomotil] 2.5-0.025 mg tablet 1 tab PO 4X/DAY PRN PRN (Reason: diarrhea) 5 Days Qty: 20 0RF lorazepam [Ativan] 1 mg tablet 1 mg PO TID PRN (Reason: Muscle cramps/spasms) 5 Days Qty: 15 0RF warfarin 2.5 mg tablet 2.5 mg PO .thursday senna-docusate sodium Tablet 2 tab PO DAILY azelastine 137 mcg (0.1 %) spray,non-aerosol 2 spray intranasal BID Qty: 30 3RF Rx Instructions: administer into each nostril warfarin 5 mg tablet 5 mg PO .COMPLEX Qty: 180 3RF Protocol: Dose Management Condition: Thursday Dose/Route: 5 mg Instruction: 1 x 5 mg tablet Condition: Thursday Dose/Route: 5 mg Instruction: 1 x 5 mg tablet Condition: Thursday Dose/Route: 2.5 mg Instruction: 0.5 x 5 mg tablets Condition: Thursday Dose/Route: 5 mg Instruction: 1 x 5 mg tablet Condition: Dose/Route: 5 mg Instruction: 1 x 5 mg tablet Condition: Thursday Dose/Route: 5 mg Instruction: 1 x 5 mg tablet Condition: Thursday Dose/Route: 5 mg Instruction: 1 x 5 mg tablet Protocol Text: Adjustment Start Date: Thursday05/17/24 INR Value: 3.7 INR Date: 05/17/24 Recheck Date: 05/31/24 Rx Instructions: 5 mg orally daily: please give extra pills for dose changes, dose changes often; torsemide 40 mg tablet 40 mg PO BID Qty: 60 11RF (DME) Handicap Placard See Rx Instructions .Route .MEDSUPPLY Qty: 1 0RF Rx Instructions: Good from 03/09/2024-03/09/2029 Discontinued potassium chloride [Klor-Con M20] 20 mEq tablet,ER particles/crystals 20 meq PO QDAY spironolactone 25 mg tablet 50 mg PO DAILY Qty: 30 11RF Referrals / Follow Up: Marcia Ramesh, [employer] [Primary Care Provider] - 06/02/24 11:00 am (Appointment is with BENJAMIN Newton. ) Joshua Sparks MD [Med Staff - Active Staff] - Within 2 Weeks Guerrero Jason NP, [employer] [Med Staff - Adv Practice Prof] - Within 2 Weeks Disposition Disposition (needs filled in before D/C Order can be placed): Home, Self Care
[2024-05-26] MEDS: Ceftriaxone 1 GM/50 ML BAG IV (10:32)
--- NOTE | 2024-05-26 11:06 | CASEMGMT ---
Addendum entered by Hany Maldonado 05/26/24 12:12: Home O2 testing has been completed. Pt does not qualify for any increase in O2 @ rest (3 L/M @ baseline), but does now qualify for 4 L/M w/exertion and ambulation. Pt is aware and this was added to pt's discharge plan. Script for increase in O2 obtained from Dr Villalba and sent to [facility] via [facility] along w/amb O2 testing documentation. Original Note: HARIS PASCUAL NOTE: Discharge order is in. PT note reviewed from today, pt ambulated total of 250 ft SBA w/use of WW and also did 12 steps. No additional recommended. RN CM to room. Pt sitting up in chair. She states she feels she did well w/therapy, declines HHC or OP therapy, and declines having any concerns w/going home. Her will take her home after he gets off of work today, around 2/2:30 PM. Home O2 testing to be completed, starting @ home O2 of 3 L/M (verified w/[facility]). Lea CARBALLO, aware. Samy BSN HARIS CM
--- NOTE | 2024-05-26 12:25 | DS.PCM_ITS ---
Providers Date of Admission: 05/23/24 Date of Discharge: 05/26/24 Primary Care Physician: Marcia Ramesh [facility], STRATEGIC PLANNING ANALYST-C Reason For Visit: GEN WEAKNESS Diagnosis Discharge Diagnosis (1) Weakness: Status: Acute Code(s): R53.1 - Weakness (2) Fall: Status: Acute Code(s): W19.XXXA - Unspecified fall, initial encounter Plan This 64-year-old female being admitted for acute generalized weakness and fall 1. Generalized weakness fatigue and fall, exact etiology unclear possible HF exacerbation: Patient is being admitted in PCU. CT head, knee x-ray, shoulder x-ray and foot x-ray did not show any acute osseous abnormality. PT and OT ordered. Right moderate pleural effusion, underlying atelectasis and suspicion of pneumonia:05/25: Repeat chest x-ray PA and lateral antecubital shows increasing pleural effusion moderate therefore ultrasound-guided thoracocentesis ordered but patient cannot have it today as INR is 3.9. Warfarin held. Will monitor INR daily and if INR less than 2.5 will start on bridging enoxaparin. Patient also on baseline 4 L of oxygen therefore she wants to ask her spudder Dr. Whelan regarding thoracocentesis. She is also scheduled outpatient CT chest without contrast for right middle lobe lung mass. Continue antibiotic. 05/26: Patient had chest ultrasound which reported no visualized pleural fluid bilaterally. Therefore ordered for thoracocentesis consult.: Prescription given for cefdinir and doxycycline to complete of total of 8 days. Follow-up with spring coiling machine setter Dr. Bose 2. Possible mild heart failure exacerbation, acute on chronic HFpEF and right basilar pneumonia: Chest x-ray initially reviewed and shows mild pulmonary venous congestion and cardiomegaly. Lasix 20 mg IV as patient blood pressure is soft. Heart failure core measures including intake and output, fluid restriction less than 1500 mL, daily weight monitoring, kidney and electrolytes monitoring. 05/24: Repeat chest x-ray was done. Pulmonary congestion, right basilar opacity and blunting of CP angle. About 3 cm right midlung zone nodular mass. Mild right pleural effusion. Official report is pending. With more right basilar opacity and diminished lung sound, started on IV ceftriaxone and doxycycline and IV Solu-Medrol and IV Solu-Medrol. 05/26: Patient discharged on torsemide 40 mg twice daily along with spironolactone 75 mg daily. Follow-up with cardiology clinic in 2 weeks.05/26 3. Multiple cardiac conditions: Paroxysmal A-fib, mechanical aortic and mitral valve replacement, left bundle branch bloc: Patient follows Dr. Whelan. Last seen in cardiology office in May 2013. She had a stress test in [facility] in which was negative for ischemia. Last echo in February 27 shows EF 69%, dilated RV. Mean AV gradient 20 mmHg, Mean mitral valve gradient 4 mm AGP twelve-lead EKG shows A-fib, LAD, chronic LBBB, at 66 bpm. No change from previous EKG of February 2024. Continue home cardiac medications. 05/26: INR 3.0. Warfarin resumed. 4. Pulmonary hypertension: Patient follows pulmonary clinic with Dr. Garvin is referred to [facility]. She is trying to make appointment with Dr. Joshua Sparks 5. Obstructive sleep apnea/asthma. Continue nocturnal PAP therapy. Bronchodilator as needed. 6. Obesity grade 2, anxiety, depression and GERD: Home medication patient on Living will/advanced directive/end of life care: Patient does not have living will or advanced directive. Her is next of kin. After discussion of benefits/risks procedures involved with full code, DNR CC arrest and DNR CC, the patient opted for full code. Patient does want artificial life support including intubation, tube feed, ventilator and/chest compression, central venous catheter, vasopressor and DC shock if needed Discharge medication reconciliation done. Discharge follow-up instructions completed. Discharge process discussed with the patient and all questions were answered to patient's satisfaction. Follow with PCP in 1 to 2 weeks Total time spent, exact 35 minutes on discharge meds reconciliation, examination, coordination of care with nurses and ancillary staff, review of imaging and blood test and discussion with the patient on follow-up instructions. Microbiology Past 72 Hours 05/23/24 06:08 Urine, Random Urine Culture - Final Escherichia coli 05/23/24 05:40 Mucosa - Nasopharyngeal SARS-CoV-2, Influenza & RSV (PCR) - Final Microbiology Past 72 Hours 05/23/24 05:40 Mucosa - Nasopharyngeal SARS-CoV-2, Influenza & RSV (PCR) - Final Laboratory Results 05/23/24 05:44: PT 28.3 H, INR 2.6 05/23/24 05:49: WBC 6.0, RBC 3.55 L, Hgb 10.1 L, Hct 33.2 L, MCV 93.5, MCH 28.5, MCHC 30.4 L, RDW Std Deviation 55.1 H, RDW Coeff of Ham 15.9 H, Plt Count 237, MPV 9.6, Immature Gran % (Auto) 0.500, Neut % (Auto) 68.5, Lymph % (Auto) 16.8 L , Dade % (Auto) 11.2 H, Eos % (Auto) 2.7, Baso % (Auto) 0.3, Absolute Neuts (auto) 4.1, Absolute Lymphs (auto) 1.00, Nucleated RBC % 0, Sodium 134 L, Potassium 3.7, Chloride 95 L, Carbon Dioxide 31.0, Anion Gap 9, B UN 30 H, Creatinine 1.24 H, Estim Creat Clear Calc 57.98, Est GFR (MDRD) Af Amer 56 L, Est GFR (MDRD) Non-Af 47 L, BUN/Creatinine Ratio 24.2 H, Glucose 140 H, Calcium 8.9, Magnesium 2.7 H, Troponin I High Sens 26 05/23/24 06:08: Urine Color Yellow, Urine Clarity Sl. Cloudy, Urine pH 6.0, Ur Specific [place] 1.015, Urine Protein 500 H, Urine Glucose (UA) 100 H, Urine Ketones Negative, Urine Occult Blood 10 H, Urine Nitrite Negative, Urine Bilirubin Negative, Urine Urobilinogen 1 H, Ur Leukocyte Esterase 100 H, Urine RBC 0 SEEN, Urine WBC >100 SEEN, Ur Squamous Epith Cells 5-10 SEEN, Ur Transition Epith Cell 5-10 SEEN, Urine Bacteria 3+, Hyaline Casts 0-5 SEEN, Urine Mucus 1+ Clinical Impression(s) from Imaging Studies Brain CT 05/23/24 05:37 IMPRESSION: No CT evidence of acute intracranial pathology. Knee X-Ray 05/23/24 05:37 IMPRESSION: Degenerative changes with no acute osseous abnormality of the left knee. Shoulder X-Ray 05/23/24 05:37 IMPRESSION: Moderate degenerative changes and CPPD arthropathy of the left shoulder with no acute osseous abnormality Foot X-Ray 05/23/24 06:20 IMPRESSION: Degenerative changes with no acute osseous abnormality of the left foot. Chest X-Ray 05/23/24 07:10 IMPRESSION: 1. Moderate cardiomegaly with pulmonary vascular congestion. 2. Mild right pleural effusion with overlying airspace disease 3. 3 cm midlung zone nodular mass. Consider noncontrast CT scan of the chest for further evaluation Reading Location: [facility] Chest X-Ray 05/24/24 13:15 IMPRESSION: Cardiomegaly with chronic interstitial disease and interval increase in right pleural effusion with overlying airspace disease. Chest X-Ray 05/24/24 13:15 IMPRESSION: Moderate right-sided pleural effusion Medications at Discharge Home Medications multivitamin with folic acid 400 mcg tablet 1 tab PO DAILY SUPPLEMETN 05/30/16 melatonin 5 mg capsule 5 mg PO QHS SLEEP 05/21/20 duloxetine 60 mg capsule,delayed release (Cymbalta) 120 mg PO DAILY Depression 11/08/20 metoprolol tartrate 25 mg tablet 25 mg PO BID HEART #180 tabs 12/11/20 clobetasol 0.05 % topical cream 1 applic topical BID PRN skin irritation 11/05/22 albuterol sulfate 90 mcg/actuation aerosol inhaler (Ventolin HFA) 2 puff inhalation Q4H PRN shortness of breath or wheezing #8.5 grams 01/14/23 budesonide-formoterol HFA 160 mcg-4.5 mcg/actuation aerosol inhaler (Symbicort) 2 puff inhalation BID Wheezing/SOB #10.2 grams 01/14/23 fluticasone propionate 50 mcg/actuation nasal spray,suspension (Flonase Allergy Relief) 2 spray intranasal QDAY Nasal #1 device 01/14/23 ipratropium 0.5 mg-albuterol 3 mg (2.5 mg base)/3 mL nebulization soln 3 ml inhalation Q4H PRN PRN SOB &/OR WHEEZING #180 mL 01/14/23 loratadine 10 mg tablet 10 mg PO DAILY ALLERGIES #90 tabs 01/14/23 diphenoxylate-atropine 2.5 mg-0.025 mg tablet (Lomotil) 1 tab PO 4X/DAY PRN PRN diarrhea 5 days #20 tabs 04/06/23 lorazepam 1 mg tablet (Ativan) 1 mg PO TID PRN Muscle cramps/spasms 5 days #15 tabs 04/06/23 PEP device #1 ea 05/05/23 acetaminophen 500 mg tablet (Tylenol Extra Strength) 1,000 mg PO DAILY PRN pain 09/08/23 diphenhydramine HCl 25 mg tablet (Benadryl Allergy) 12.5 mg PO QHS PRN allergy symptoms 09/08/23 gabapentin 300 mg capsule 300 mg PO BID Neuropathy 09/08/23 azelastine 137 mcg (0.1 %) nasal spray 2 spray intranasal BID asthma #30 mL 11/11/23 cholecalciferol (vitamin D3) 1,250 mcg (50,000 unit) capsule 1,250 mcg PO QWEEK Deficiency of Vitamin D 12/15/23 magnesium oxide 400 mg PO QDAY Supplement 12/15/23 semaglutide 0.25 mg or 0.5 mg (2 mg/3 mL) subcutaneous pen injector (Ozempic) 0.5 mg subcut QWEEK DM2 12/15/23 warfarin 5 mg tablet 5 mg PO .COMPLEX blood thinner #180 tabs 02/03/24 multivitamin with minerals (Hair,Skin and Nails tablet) 2 tab PO DAILY Supplement 03/09/24 Farxiga 10 mg tablet (dapagliflozin propanediol) 10 mg PO QDAY Diabetes #90 tabs 04/26/24 torsemide 40 mg tablet 40 mg PO BID CHF #60 tabs 04/28/24 Handicap Placard #1 ea 05/09/24 acetylcysteine 600 mg capsule (NAC) 600 mg PO QDAY Priuritus 05/18/24 omeprazole 40 mg capsule,delayed release 40 mg PO BID GERD 05/18/24 senna-docusate sodium tablet 2 tab PO DAILY Constipation 05/23/24 warfarin 2.5 mg tablet 2.5 mg PO .thursday blood thinner 05/23/24 cefdinir 300 mg capsule 300 mg PO BID 5 days #10 caps 05/26/24 doxycycline monohydrate 100 mg capsule 100 mg PO BID 5 days #10 caps 05/26/24 spironolactone 50 mg tablet 75 mg (1.5 x 50 mg) PO DAILY 1 month #45 tabs 05/26/24 Physical Exam Narrative Seen and examined. Patient on baseline 4 L of oxygen that she is on home oxygen. Chest x-ray shows moderate pleural effusion but chest ultrasound did not show pleural effusion. Physical exam General: Alert, Oriented x3, Cooperative HEENT: Atraumatic, PERRLA, EOMI, Normocephalic Oral: Oral mucosa dry no Gingival or Mucosal Lesions/ Ulcerations Neck: Supple, No JVD, Negative Carotid Bruits Chest wall/Lungs: Air entry diminished in right lung base compared to left. No crepitation/rhonchi. Cardiovascular: Sinus Rhythm, Normal S1, Normal S2, mechanical valve sound Abdomen: Bowel Sounds Present, Soft, Non Tender, Non-Distended : No dysuria. No renal angle tenderness. No suprapubic tenderness. Extremities: No ankle pedal edema, Capillary Refill Less than 3 Seconds Skin: No rashes, No breakdown Musculoskeletal: No Tenderness to Palpation of Joints or Extremities. ROM restricted knee joints. Neurological: Cranial nerves II-XII grossly intact, DTR 2+/4. No acute focal neurological deficit. Psych/Mental Status: Flat affect. Weight / BMI Weight Weight: 230 lb 9.656 oz Body Mass Index (BMI) 36.1 ABG / Lab / Microbiology Data 05/26/24 05:24 05/26/24 05:24 Laboratory: Laboratory Results - last 24 hr 05/25/24 12:39: PT 37.0 H, INR 3.6 05/26/24 05:24: WBC 7.8, RBC 3.51 L, Hgb 10.2 L, Hct 32.8 L, MCV 93.4, MCH 29.1, MCHC 31.1 L, RDW Std Deviation 54.9 H, RDW Coeff of Ham 16.1 H, Plt Count 249, MPV 10.1, Immature Gran % (Auto) 0.500, Neut % (Auto) 72.9 H, Lymph % (Auto) 13.7 L, [place] % (Auto) 11.6 H, Eos % (Auto) 0.9, Baso % (Auto) 0.4, Absolute Neuts (auto) 5.7, Absolute Lymphs (auto) 1.07, Nucleated RBC % 0, PT 32.1 H, INR 3.0, Sodium 138, Potassium 3.8, Chloride 100, Carbon Dioxide 33.0 H, Anion Gap 5, BUN 35 H, Creatinine 1.04 H, Estim Creat Clear Calc 69.77, Est GFR (MDRD) Af Amer 69, Est GFR (MDRD) Non-Af 57 L, BUN/Creatinine Ratio 33.7 H, Glucose 113 H, Calcium 9.1 Microbiology: Microbiology 05/23/24 06:08 Urine, Random Urine Culture - Final Escherichia coli 05/23/24 05:40 Mucosa - Nasopharyngeal SARS-CoV-2, Influenza & RSV (PCR) - Final Radiography Diagnostic Testing: Radiology Impression Chest Ultrasound 05/25/24 10:12 IMPRESSION: No visualized pleural fluid bilaterally. Reading Location: [id number] D/C Instructions Discharge Diet: No restrictions Weight Bearing Status: Weight bearing as tolerated Call your doctor if you observe: Fever of 101 or Higher, Coldness, Increased Pain, Numbness or Tingling, Change in Color, Inability to urinate, Inability to have a bowel movement, Shortness of breath, Dizziness, Fainting spells, Swelling in the ankles, Chest pain, Prolonged hiccupping, Increased palpitations (irregular heartbeat) and Calf discomfort DC O2, CPAP, BIPAP Needs Home O2 Discharge instructions: Yes Type of respiratory needs?: Oxygen Oxygen frequency: Continuous Continuous oxygen liters per minute: 4 L/min DC home with Oxygen: Yes Home O2 MD Review: I have reviewed the oxygen testing, and the patient qualifies for home oxygen equipment and portability. The patient is mobile in the home and the community. When: IN 2 WEEKS Meaningful Use Info Meaningful Use Meaningful Use Diagnoses (Choose all that apply): None applicable Ischemic Stroke Statin Dosing Therapy Reference: STATIN DOSE THERAPY REFERENCE: * Patients > 75 years receive moderate or high dose statin therapy. * Patients 75 years or YOUNGER should receive HIGH intensity statin dose unless contraindicated. You will be required to document reason for non-treatment if statin daily dose does not meet guidelines. HIGH DOSE STATIN THERAPY DAILY Atorvastatin > than or = to 40 mg Rosuvastatin > than or = to 20 mg Amlodipine + Atorvastatin > than or = to 2.5/40 mg Ezetimibe + Simvastatin 10/80 mg Simvastatin 80mg Discharge Plan Admission Admit Date/Time: 05/23/24 08:28 Primary Reason for Your Visit: Influenza A bronchitis Attending Provider: Stanley Villalba Primary Care Provider: Marcia Ramesh [facility] Discharge Orders/Prescriptions Prescriptions: New doxycycline monohydrate 100 mg Capsule 100 mg PO BID 5 Days Qty: 10 0RF cefdinir 300 mg capsule 300 mg PO BID 5 Days Qty: 10 0RF spironolactone 50 mg tablet 75 mg PO DAILY 30 Days Qty: 45 0RF Rx Instructions: Hold for serum potassium more than 5.0 Continued duloxetine [Cymbalta] 60 mg capsule,delayed release(DR/EC) 120 mg PO DAILY metoprolol tartrate 25 mg tablet 25 mg PO BID Qty: 180 3RF acetaminophen [Tylenol Extra Strength] 500 mg tablet 1,000 mg PO DAILY PRN (Reason: pain) albuterol sulfate [Ventolin HFA] 90 mcg/actuation HFA aerosol inhaler 2 puff INHALATION Q4H PRN (Reason: shortness of breath or wheezing) Qty: 8.5 6RF budesonide-formoterol [Symbicort] 160-4.5 mcg/actuation HFA aerosol inhaler 2 puff inhalation BID Qty: 10.2 6RF fluticasone propionate [Flonase Allergy Relief] 50 mcg/actuation spray,suspension 2 spray INTRANASAL QDAY Qty: 1 3RF Rx Instructions: administer into each nostril ipratropium-albuterol 0.5 mg-3 mg(2.5 mg base)/3 mL solution for nebulization 3 ml inhalation Q4H PRN PRN (Reason: SOB &/OR WHEEZING) Qty: 180 6RF loratadine 10 mg tablet 10 mg PO DAILY Qty: 90 3RF clobetasol 0.05 % cream 1 applic topical BID PRN (Reason: skin irritation) (DME) PEP device See Rx Instructions .ROUTE .MEDSUPPLY Qty: 1 0RF Rx Instructions: with training cholecalciferol (vitamin D3) 1,250 mcg (50,000 unit) capsule 1,250 mcg PO QWEEK Ozempic 0.25 mg or 0.5 mg (2 mg/3 mL) pen injector 0.5 mg subcut QWEEK diphenhydramine HCl [Benadryl Allergy] 25 mg tablet 12.5 mg PO QHS PRN (Reason: allergy symptoms) gabapentin 300 mg capsule 300 mg PO BID magnesium oxide 400 mg magnesium tablet 400 mg PO QDAY Hair,Skin and Nails Tablet 2 tab PO DAILY dapagliflozin propanediol [Farxiga] 10 mg tablet 10 mg PO QDAY Qty: 90 3RF acetylcysteine [NAC] 600 mg capsule 600 mg PO QDAY multivitamin with folic acid 1 TABLET tablet 1 tab PO DAILY melatonin 5 MG capsule 5 mg PO QHS omeprazole 40 mg capsule,delayed release(DR/EC) 40 mg PO BID diphenoxylate-atropine [Lomotil] 2.5-0.025 mg tablet 1 tab PO 4X/DAY PRN PRN (Reason: diarrhea) 5 Days Qty: 20 0RF lorazepam [Ativan] 1 mg tablet 1 mg PO TID PRN (Reason: Muscle cramps/spasms) 5 Days Qty: 15 0RF warfarin 2.5 mg tablet 2.5 mg PO .thursday senna-docusate sodium Tablet 2 tab PO DAILY azelastine 137 mcg (0.1 %) spray,non-aerosol 2 spray intranasal BID Qty: 30 3RF Rx Instructions: administer into each nostril warfarin 5 mg tablet 5 mg PO .COMPLEX Qty: 180 3RF Protocol: Dose Management Condition: Thursday Dose/Route: 5 mg Instruction: 1 x 5 mg tablet Condition: Thursday Dose/Route: 5 mg Instruction: 1 x 5 mg tablet Condition: Thursday Dose/Route: 2.5 mg Instruction: 0.5 x 5 mg tablets Condition: Thursday Dose/Route: 5 mg Instruction: 1 x 5 mg tablet Condition: Dose/Route: 5 mg Instruction: 1 x 5 mg tablet Condition: Thursday Dose/Route: 5 mg Instruction: 1 x 5 mg tablet Condition: Thursday Dose/Route: 5 mg Instruction: 1 x 5 mg tablet Protocol Text: Adjustment Start Date: Thursday05/17/24 INR Value: 3.7 INR Date: 05/17/24 Recheck Date: 05/31/24 Rx Instructions: 5 mg orally daily: please give extra pills for dose changes, dose changes often; torsemide 40 mg tablet 40 mg PO BID Qty: 60 11RF (DME) Handicap Placard See Rx Instructions .Route .MEDSUPPLY Qty: 1 0RF Rx Instructions: Good from 03/09/2024-03/09/2029 Discontinued potassium chloride [Klor-Con M20] 20 mEq tablet,ER particles/crystals 20 meq PO QDAY spironolactone 25 mg tablet 50 mg PO DAILY Qty: 30 11RF Referrals / Follow Up: Joshua Sparks MD [Med Staff - Active Staff] - Within 2 Weeks Guerrero Jason NP, NP-C [Med Staff - Adv Practice Prof] - Within 2 Weeks Marcia Ramesh NP-C [Primary Care Provider] - 06/02/24 11:00 am (Appointment is with BENJAMIN Corley ) Disposition Disposition (needs filled in before D/C Order can be placed): Home, Self Care Charges/Coding Visit Charges Inpatient E&M: 16283 Disch Hosp >30min
--- NOTE | 2024-05-26 14:12 | PHA.DC_ITS ---
Pharmacy [facility] Pharm[facility] Service has performed discharge medication reconciliation and counseling for this patient. The patient's discharge medication list was reviewed for discrepancies and discrepancies were resolved. The patient was counseled on the following discharge medications and changes in medications for homegoing were reviewed. 1. CEFDINIR 2. DOXYCYCLINE 3. ALDACTONE --> DOSE CHANGE 4. K-DUR --> DISCONTINUE THERAPY The Reason for Use, instructions for use, and potential side effects were reviewed for all new medications. The patient's questions regarding all of their medications were answered. The patient was able to verbally demonstrate an understanding of their discharge medications. Medications at Discharge Home Medications multivitamin with folic acid 400 mcg tablet 1 tab PO DAILY SUPPLEMETN 05/30/16 melatonin 5 mg capsule 5 mg PO QHS SLEEP 05/21/20 duloxetine 60 mg capsule,delayed release (Cymbalta) 120 mg PO DAILY Depression 11/08/20 metoprolol tartrate 25 mg tablet 25 mg PO BID HEART #180 tabs 12/11/20 clobetasol 0.05 % topical cream 1 applic topical BID PRN skin irritation 11/05/22 albuterol sulfate 90 mcg/actuation aerosol inhaler (Ventolin HFA) 2 puff inhalation Q4H PRN shortness of breath or wheezing #8.5 grams 01/14/23 budesonide-formoterol HFA 160 mcg-4.5 mcg/actuation aerosol inhaler (Symbicort) 2 puff inhalation BID Wheezing/SOB #10.2 grams 01/14/23 fluticasone propionate 50 mcg/actuation nasal spray,suspension (Flonase Allergy Relief) 2 spray intranasal QDAY Nasal #1 device 01/14/23 ipratropium 0.5 mg-albuterol 3 mg (2.5 mg base)/3 mL nebulization soln 3 ml inhalation Q4H PRN PRN SOB &/OR WHEEZING #180 mL 01/14/23 loratadine 10 mg tablet 10 mg PO DAILY ALLERGIES #90 tabs 01/14/23 diphenoxylate-atropine 2.5 mg-0.025 mg tablet (Lomotil) 1 tab PO 4X/DAY PRN PRN diarrhea 5 days #20 tabs 04/06/23 lorazepam 1 mg tablet (Ativan) 1 mg PO TID PRN Muscle cramps/spasms 5 days #15 tabs 04/06/23 PEP device #1 ea 05/05/23 acetaminophen 500 mg tablet (Tylenol Extra Strength) 1,000 mg PO DAILY PRN pain 09/08/23 diphenhydramine HCl 25 mg tablet (Benadryl Allergy) 12.5 mg PO QHS PRN allergy symptoms 09/08/23 gabapentin 300 mg capsule 300 mg PO BID Neuropathy 09/08/23 azelastine 137 mcg (0.1 %) nasal spray 2 spray intranasal BID asthma #30 mL 11/11/23 cholecalciferol (vitamin D3) 1,250 mcg (50,000 unit) capsule 1,250 mcg PO QWEEK Deficiency of Vitamin D 12/15/23 magnesium oxide 400 mg PO QDAY Supplement 12/15/23 semaglutide 0.25 mg or 0.5 mg (2 mg/3 mL) subcutaneous pen injector (Ozempic) 0.5 mg subcut QWEEK DM2 12/15/23 warfarin 5 mg tablet 5 mg PO .COMPLEX blood thinner #180 tabs 02/03/24 multivitamin with minerals (Hair,Skin and Nails tablet) 2 tab PO DAILY Supplement 03/09/24 Farxiga 10 mg tablet (dapagliflozin propanediol) 10 mg PO QDAY Diabetes #90 tabs 04/26/24 torsemide 40 mg tablet 40 mg PO BID CHF #60 tabs 04/28/24 Handicap Placard #1 ea 05/09/24 acetylcysteine 600 mg capsule (NAC) 600 mg PO QDAY Priuritus 05/18/24 omeprazole 40 mg capsule,delayed release 40 mg PO BID GERD 05/18/24 senna-docusate sodium tablet 2 tab PO DAILY Constipation 05/23/24 warfarin 2.5 mg tablet 2.5 mg PO .thursday blood thinner 05/23/24 cefdinir 300 mg capsule 300 mg PO BID 5 days #10 caps 05/26/24 doxycycline monohydrate 100 mg capsule 100 mg PO BID 5 days #10 caps 05/26/24 spironolactone 50 mg tablet 75 mg (1.5 x 50 mg) PO DAILY 1 month #45 tabs 05/26/24
[2024-05-30 10:08] LABS: Amylase Body Fluid 24 U/L (.); pH, Body Fluid 11254 7.4 (Not Estab.)
== END 2024-05-26 16:06 | disposition home or self-care (01) | DRG 292 ==
LOC: ED 05:51 → PCU 15:25
PROVIDERS: Admitting Provider Internal Medicine; Emergency Provider Emergency Medicine; PCP Nurse Practitioner Family; Visit Provider Internal Medicine
DX: I50.33 Acute on chronic diastolic (congestive) heart failure (principal); J90 Pleural effusion, not elsewhere classified; J98.11 Atelectasis; I27.20 Pulmonary hypertension, unspecified; I11.0 Hypertensive heart disease with heart failure; J45.909 Unspecified asthma, uncomplicated; F32.A Depression, unspecified; Z95.2 Presence of prosthetic heart valve; E66.812 Obesity, class 2; I48.0 Paroxysmal atrial fibrillation; E78.5 Hyperlipidemia, unspecified; K21.9 Gastro-esophageal reflux disease without esophagitis; G47.33 Obstructive sleep apnea (adult) (pediatric); W18.39XA Other fall on same level, initial encounter; Z79.01 Long term (current) use of anticoagulants; Z79.51 Long term (current) use of inhaled steroids; Z99.89 Dependence on other enabling machines and devices; Z85.42 Personal history of malignant neoplasm of other parts of uterus; Z79.899 Other long term (current) drug therapy; Z90.722 Acquired absence of ovaries, bilateral; Z90.710 Acquired absence of both cervix and uterus; Z98.51 Tubal ligation status; Z68.35 Body mass index [BMI] 35.0-35.9, adult
CPT/HCPCS: 36415; 70450; 71045; 71046; 73030; 73564; 73630; 76604; 80048; 81001; 82150; 83615; 83735; 83880; 83986; 84100; 84155; 84484; 85025; 85610; 87077; 87086; 87088; 87186; 87631; 93005; 94640; 94668; 97162; 97166; 97530; 97535; 99252; 99285; A4216; G0463; J1938; J2405

== ENCOUNTER → 2024-06-02 | Outpatient (CLI) | payer OTHER, SELFPAY ==
[2024-06-02 12:49] LABS: Absolute Lymphocyte Count 1.31 X10^3/uL (0.83-4.51); Absolute Neutrophil Count 4.1 X10^3/uL (2.0-7.7); Basophil# 0.05 X10^3/uL; Basophil% 0.8 % (0-1); Eosinophil# 0.14 X10^3/uL; Eosinophils% 2.1 % (0-5); Hematocrit 39.2 % (37-47); Lymphocyte # 1.31 X10^3/ul (0.83-4.51); Lymphocyte % 19.7 % (19-41); Mean Corp Hgb Conc 30.6 g/dL (32-36); Mean Corpuscular Volume 91.6 fL (81-99); Monocyte# 0.98 X10^3/uL; Monocyte% 14.8 % (0-10); NRBC Flagged by Analyzer 0 % (0-5); Neutrophil # 4.12 X10^3/uL (2.7-7.7); Platelet Count 275 K/mm3 (150-450); RBC Distribution Width SD 50.4 fl (35.1-43.9); Red Blood Count 4.28 M/mm3 (4.2-5.4); White Blood Count 6.6 K/mm3 (4.4-11.0)
[2024-06-02 13:43] LABS: Hemoglobin A1c 6.2 % (<=5.6)
[2024-06-02 13:44] LABS: Anion Gap 11 (5-15); BUN 29 mg/dL (4-19); BUN/Creat Ratio 26.3 RATIO (10-20); Calcium 9.4 mg/dL (7.6-11.0); Carbon Dioxide 31.8 mmol/L (22.0-29.0); Chloride 92 mmol/L (96-108); Creatinine, Serum 1.1 mg/dL (0.6-1.0); EST Glomerular Filtration Rate 57 (>60); Glucose 132 mg/dL (70-99); Sodium Level 134 mmol/L (133-145)
[2024-06-02 13:54] LABS: International Normalized Ratio 1.8; Prothrombin Time (Protime)PT. 21.1 SECONDS (11.7-14.9)
== END | disposition home or self-care (01) ==
LOC: VSLAB 12:02
PROVIDERS: Physician Assistant Medical; PCP Nurse Practitioner Family
DX: E11.65 Type 2 diabetes mellitus with hyperglycemia (principal); I50.32 Chronic diastolic (congestive) heart failure; J18.9 Pneumonia, unspecified organism; Z79.01 Long term (current) use of anticoagulants; Z95.2 Presence of prosthetic heart valve; Z51.81 Encounter for therapeutic drug level monitoring; Z79.899 Other long term (current) drug therapy
CPT/HCPCS: 36415; 80048; 83036; 85025; 85610

== ENCOUNTER → 2024-06-03 | Outpatient (CLI) | payer OTHER, SELFPAY ==
--- NOTE | 2024-06-03 18:58 | CT_ITS ---
PROCEDURE: CHEST WITHOUT CONTRAST REASON FOR EXAM: History of COVID. Shortness of breath. Pulmonary hypertension. TECHNIQUE: Chest CT without contrast. COMPARISON: None. FINDINGS: Hardware: None. Lymph nodes: Small mediastinal lymph nodes. Heart and Vasculature: Normal heart size. No pericardial effusion. Atherosclerotic calcific plaque of the aortic arch as well as the descending thoracic aorta. Prior mitral valve replacement. Coronary Artery Calcifications: Present prior CABG. Enlargement of the pulmonary arteries. Possible pulmonary hypertension. Lungs and Airways: There is a small right pleural effusion with increased markings at the right lung base suggestive of atelectasis. Questionable rounded atelectasis at the right lung base. Upper Abdomen: Visualized portions of the upper abdominal viscera are unremarkable. Bones: Degenerative changes of the thoracic spine. CT/Chest without Contrast IMPRESSION: Small right pleural effusion with findings suggestive of atelectasis at the rig ht lung base. Questionable rounded atelectasis. Enlargement of the pulmonary artery suggestive of possible pulmonary hypertensi on. One or more dose reduction techniques were used (e.g., Automated exposure contr ol, adjustment of the mA and/or kV according to patient size, use of iterative reconstruction technique). Reading Location: [facility]
== END | disposition home or self-care (01) ==
LOC: CT 18:57
PROVIDERS: PCP Nurse Practitioner Family; Referring Provider Nurse Practitioner Family; Visit Provider Nurse Practitioner Family
DX: R06.00 Dyspnea, unspecified (principal)
CPT/HCPCS: 71250

== ENCOUNTER → 2024-06-13 | Outpatient (CLI) | payer OTHER, SELFPAY ==
--- NOTE | 2024-06-13 09:01 | RAD_ITS ---
EXAM: XR Chest, 2 Views CLINICAL INDICATION: TECHNIQUE: Frontal and lateral views of the chest. COMPARISON: No relevant prior studies available. FINDINGS: LUNGS AND PLEURAL SPACES: See below. HEART: Cardiomegaly with mild congestion. MEDIASTINUM: Unremarkable. Normal mediastinal contour. BONES/JOINTS: Unremarkable. No acute fracture. RAD/Chest PA and Lateral IMPRESSION: Cardiomegaly with mild congestion. Reading Location: [facility]
[2024-06-13 10:11] LABS: International Normalized Ratio 2.7; Prothrombin Time (Protime)PT. 29.1 SECONDS (11.7-14.9)
[2024-06-13 10:48] LABS: ALB/GLOB Ratio 0.8 RATIO (0.9-2.4); AST(SGOT) 29 U/L (<=31); Alanine Aminotransfer ALT/SGPT 16 U/L (<=34); Albumin, Serum 4.1 g/dL (3.4-4.8); Alkaline Phosphatase 100 U/L (35-104); Anion Gap 14 (5-15); BUN 35 mg/dL (4-19); BUN/Creat Ratio 25.3 RATIO (10-20); Carbon Dioxide 31.7 mmol/L (21.0-32.0); Chloride 88 mmol/L (98-108); Creatinine, Serum 1.39 mg/dL (0.70-1.20); EST Glomerular Filtration Rate 43 (>60); Glucose 137 mg/dL (70-99); Magnesium 2.8 mg/dL (1.5-2.2); Potassium 4.7 mmol/L (3.3-5.1); Protein, Total 9.1 g/dL (5.9-8.4); Sodium Level 133 mmol/L (133-145)
== END | disposition home or self-care (01) ==
LOC: RAD 09:01
PROVIDERS: PCP Nurse Practitioner Family; Referring Provider Nurse Practitioner Family; Visit Provider Nurse Practitioner Family
DX: I48.0 Paroxysmal atrial fibrillation (principal); Z79.01 Long term (current) use of anticoagulants; Z95.2 Presence of prosthetic heart valve
CPT/HCPCS: 36415; 71046; 80053; 83735; 85610

== ENCOUNTER 2024-07-04 10:07 | Outpatient (RCR) | payer OTHER, SELFPAY ==
[2024-06-04 07:44] VITALS: BMI 39.5
[2024-07-04 10:40] LABS: Absolute Lymphocyte Count 1.55 X10^3/uL (0.83-4.51); Absolute Neutrophil Count 5.2 X10^3/uL (2.0-7.7); Basophil# 0.03 X10^3/uL; Basophil% 0.4 % (0-1); Eosinophil# 0.15 X10^3/uL; Eosinophils% 1.9 % (0-5); Hematocrit 42.7 % (37-47); Hemoglobin 14.2 g/dL (12.0-15.0); Lymphocyte # 1.55 X10^3/ul (0.83-4.51); Lymphocyte % 19.6 % (19-41); Mean Corp Hgb Conc 33.3 g/dL (32-36); Mean Corpuscular Hgb 28.9 pg (27.0-32.0); Mean Corpuscular Volume 86.8 fL (81-99); Mean Platelet Vol. 10.1 fl (6.2-12.0); Monocyte# 0.95 X10^3/uL; NRBC Flagged by Analyzer 0 % (0-5); Neutrophil # 5.17 X10^3/uL (2.7-7.7); Neutrophil % 65.5 % (47-70); Platelet Count 275 K/mm3 (150-450); RBC Distribution Width SD 47.8 fl (35.1-43.9); Red Blood Count 4.92 M/mm3 (4.2-5.4); White Blood Count 7.9 K/mm3 (4.4-11.0)
[2024-07-04 11:21] LABS: Hemoglobin A1c 6.7 % (<=5.6)
[2024-07-04 11:29] LABS: International Normalized Ratio 3.6; Prothrombin Time (Protime)PT. 36.8 SECONDS (11.7-14.9)
[2024-07-04 11:34] LABS: ALB/GLOB Ratio 0.9 RATIO (0.9-2.4); AST(SGOT) 32 U/L (<=31); Alanine Aminotransfer ALT/SGPT 17 U/L (<=34); Alkaline Phosphatase 87 U/L (35-104); Anion Gap 13 (5-15); BUN 38 mg/dL (4-19); BUN/Creat Ratio 29.1 RATIO (10-20); Bilirubin, Direct 0.29 mg/dL (0.00-0.30); Calcium,Total 9.7 mg/dL (7.6-11.0); Carbon Dioxide 29.7 mmol/L (21.0-32.0); Chloride 89 mmol/L (98-108); Cholesterol 278 mg/dL (<=200); EST Glomerular Filtration Rate 46 (>60); Globulin 4.7 g/dL (2.2-4.2); Glucose 130 mg/dL (70-99); High Density Lipoprotein 47 mg/dL; Low Density Lipoprotein Calc. 200 mg/dL; Potassium 4.1 mmol/L (3.3-5.1); Protein, Total 8.6 g/dL (5.9-8.4); Sodium Level 131 mmol/L (133-145); Total Bilirubin 0.57 mg/dL (0.00-1.30); Triglycerides 157 mg/dL; Very Low Density Lipoprotein 31 mg/dL (5-40); cholesterol:hdl ratio screen 5.93
== END 2024-07-04 18:00 | disposition home or self-care (01) ==
LOC: LAB 10:07
PROVIDERS: PCP Nurse Practitioner Family; Referring Provider Internal Medicine Cardiovascular Disease; Visit Provider Internal Medicine Cardiovascular Disease
DX: Z95.2 Presence of prosthetic heart valve (principal); Z79.01 Long term (current) use of anticoagulants; I48.0 Paroxysmal atrial fibrillation; R53.83 Other fatigue; E11.65 Type 2 diabetes mellitus with hyperglycemia
CPT/HCPCS: 36415; 80053; 80061; 82248; 83036; 84443; 85025; 85610

== ENCOUNTER → 2024-07-04 | Outpatient (CLI) | payer OTHER, SELFPAY | END | disposition home or self-care (01) | LOC: LABSPEC 10:05 | PROVIDERS: PCP Nurse Practitioner Family | DX: R53.83 Other fatigue (principal) | CPT/HCPCS: 87086; 87088 ==

== ENCOUNTER 2024-08-03 12:00 | Outpatient (RCR) | payer OTHER, SELFPAY ==
[2024-07-04 22:59] VITALS: BMI 39.5
[2024-07-08 09:17] LABS: Absolute Lymphocyte Count 1.49 X10^3/uL (0.83-4.51); Absolute Neutrophil Count 3.3 X10^3/uL (2.0-7.7); Basophil# 0.05 X10^3/uL; Basophil% 0.9 % (0-1); Eosinophil# 0.22 X10^3/uL; Eosinophils% 3.9 % (0-5); Hematocrit 41.4 % (37-47); Hemoglobin 13.4 g/dL (12.0-15.0); Lymphocyte # 1.49 X10^3/ul (0.83-4.51); Lymphocyte % 26.1 % (19-41); Mean Corp Hgb Conc 32.4 g/dL (32-36); Mean Corpuscular Hgb 28.8 pg (27.0-32.0); Mean Corpuscular Volume 88.8 fL (81-99); Mean Platelet Vol. 10.4 fl (6.2-12.0); Monocyte# 0.64 X10^3/uL; Monocyte% 11.2 % (0-10); NRBC Flagged by Analyzer 0 % (0-5); Neutrophil # 3.25 X10^3/uL (2.7-7.7); Platelet Count 283 K/mm3 (150-450); RBC Distribution Width CV 15.4 % (11.6-14.6); RBC Distribution Width SD 49.7 fl (35.1-43.9); Red Blood Count 4.66 M/mm3 (4.2-5.4); White Blood Count 5.7 K/mm3 (4.4-11.0)
[2024-07-08 09:35] LABS: Anion Gap 14 (5-15); BUN 36 mg/dL (4-19); BUN/Creat Ratio 26.7 RATIO (10-20); Calcium,Total 9.6 mg/dL (7.6-11.0); Carbon Dioxide 29.2 mmol/L (21.0-32.0); Chloride 89 mmol/L (98-108); Creatinine, Serum 1.34 mg/dL (0.70-1.20); EST Glomerular Filtration Rate 45 (>60); Glucose 211 mg/dL (70-99); Sodium Level 132 mmol/L (133-145)
[2024-07-08 09:50] LABS: International Normalized Ratio 3.6; Prothrombin Time (Protime)PT. 37.1 SECONDS (11.7-14.9)
[2024-07-13 12:14] LABS: International Normalized Ratio 3.4
[2024-07-13 14:40] LABS: Pro- Brain NATRIURETIC PEPTIDE 1282 pg/mL (<=900)
[2024-07-27 11:24] LABS: International Normalized Ratio 2.8
[2024-08-03 12:54] LABS: International Normalized Ratio 3.5; Prothrombin Time (Protime)PT. 35.9 SECONDS (11.7-14.9)
--- NOTE | 2024-08-03 13:30 | RAD_ITS ---
PROCEDURE: CHEST PA AND LATERAL 08/03/2024 REASON FOR EXAM: INCREASING SOB, WEIGHT GAIN TECHNIQUE: Frontal and lateral views of the chest. COMPARISON: Chest x-ray study dated 01/2025 FINDINGS: The overall findings are similar when compared to the prior chest x-ray study. The heart is mildly enlarged however similar in size and configuration when compared to the prior study. Pulmonary vasculature is engorged centrally. Prominent interstitial markings are noted in the lungs. There is a small to moderate-sized right pleural effusion. The left costophrenic angle sharp. Median sternotomy wires vascular clips are seen. Arteriosclerotic vascular disease of the aorta is noted. Diffuse osteopenia of the bony thorax is seen. RAD/Chest PA and Lateral IMPRESSION: Pulmonary edema is noted. This most likely is secondary to congestive heart fa ilure. Underlying pneumonic infiltrate would be another consideration in the right clinical setting. Right pleural effusion. Arteriosclerotic vascular disease of the aorta. Reading Location: [id number]
[2024-08-03 13:38] LABS: Anion Gap 12 (5-15); BUN 25 mg/dL (4-19); BUN/Creat Ratio 21.8 RATIO (10-20); Calcium,Total 8.9 mg/dL (7.6-11.0); Carbon Dioxide 31.1 mmol/L (21.0-32.0); Chloride 93 mmol/L (98-108); Creatinine, Serum 1.13 mg/dL (0.70-1.20); EST Glomerular Filtration Rate 55 (>60); Glucose 142 mg/dL (70-99); Potassium 3.1 mmol/L (3.3-5.1); Pro- Brain NATRIURETIC PEPTIDE 5052 pg/mL (<=900); Sodium Level 136 mmol/L (133-145)
== END 2024-08-03 18:00 | disposition home or self-care (01) ==
LOC: LAB 12:00
PROVIDERS: Physician Assistant Medical; PCP Nurse Practitioner Family; Referring Provider Nurse Practitioner Family; Visit Provider Internal Medicine Cardiovascular Disease
DX: Z95.2 Presence of prosthetic heart valve (principal); Z79.01 Long term (current) use of anticoagulants; I48.0 Paroxysmal atrial fibrillation; I11.0 Hypertensive heart disease with heart failure; I50.32 Chronic diastolic (congestive) heart failure; I27.20 Pulmonary hypertension, unspecified; I44.7 Left bundle-branch block, unspecified; E78.00 Pure hypercholesterolemia, unspecified; R06.02 Shortness of breath; Z51.81 Encounter for therapeutic drug level monitoring; Z79.899 Other long term (current) drug therapy; R63.5 Abnormal weight gain; R42 Dizziness and giddiness
CPT/HCPCS: 36415; 71046; 80048; 83880; 85025; 85610

== ENCOUNTER → 2024-08-04 | Outpatient (CLI) | payer OTHER, SELFPAY ==
--- NOTE | 2024-08-04 07:59 | PCM.PR.HP ---
History of Present Illness General Arrival date:: 08/04/24 Arrival time:: 08:00 Date of Referral:: 07/29/24 Date of Evaluation: 08/04/24 Referring Physician: Dr. Sparks Primary Diagnosis: Pulmonary HTN History of Present Pulmonary Event [facility] Breathless Scale: When is the patient short of breath? Y/N Grade: Description of Breathlessness: 0 I only get breathless with strenuous exercise. 1 I get short of breath when hurrying on level ground or walking up a slight hill. 2 On level ground, I walk slower than people of the same age because of breathless, or have to stop for breath when walking at my own pace. 3 I stop for breath after walking 100 yards or after a few minutes on level ground. 4 I am too breathless to leave the house or I am breathless when dressing. Respiratory Problems: Yes Retain Secretions, Chest Pain, Fatigue, Wheezing, Able to Speak in Full Sentences, Dizziness, Ankle Swelling, Dyspnea at Rest, Dyspnea with Activity, Dyspnea Lying Down Flat and Cough with Secretions; No Limited Range of Motion, Hoarseness, Anxiety or Panic Medications Home Medications multivitamin with folic acid 400 mcg tablet 1 tab PO DAILY SUPPLEMETN 05/30/16 melatonin 5 mg capsule 5 mg PO QHS SLEEP 05/21/20 duloxetine 60 mg capsule,delayed release (Cymbalta) 120 mg PO DAILY Depression 11/08/20 metoprolol tartrate 25 mg tablet 25 mg PO BID HEART #180 tabs 12/11/20 clobetasol 0.05 % topical cream 1 applic topical BID PRN skin irritation 11/05/22 albuterol sulfate 90 mcg/actuation aerosol inhaler (Ventolin HFA) 2 puff inhalation Q4H PRN shortness of breath or wheezing #8.5 grams 01/14/23 budesonide-formoterol HFA 160 mcg-4.5 mcg/actuation aerosol inhaler (Symbicort) 2 puff inhalation BID Wheezing/SOB #10.2 grams 01/14/23 fluticasone propionate 50 mcg/actuation nasal spray,suspension (Flonase Allergy Relief) 2 spray intranasal QDAY Nasal #1 device 01/14/23 loratadine 10 mg tablet 10 mg PO DAILY ALLERGIES #90 tabs 01/14/23 PEP device #1 ea 05/05/23 acetaminophen 500 mg tablet (Tylenol Extra Strength) 1,000 mg PO DAILY PRN pain 09/08/23 diphenhydramine HCl 25 mg tablet (Benadryl Allergy) 12.5 mg PO QHS PRN allergy symptoms 09/08/23 gabapentin 300 mg capsule 300 mg PO BID Neuropathy 09/08/23 azelastine 137 mcg (0.1 %) nasal spray 2 spray intranasal BID asthma #30 mL 11/11/23 cholecalciferol (vitamin D3) 1,250 mcg (50,000 unit) capsule 1,250 mcg PO QWEEK Deficiency of Vitamin D 12/15/23 semaglutide 0.25 mg or 0.5 mg (2 mg/3 mL) subcutaneous pen injector (Ozempic) 0.5 mg subcut QWEEK DM2 12/15/23 warfarin 5 mg tablet 5 mg PO .COMPLEX blood thinner #180 tabs 02/03/24 multivitamin with minerals (Hair,Skin and Nails tablet) 2 tab PO DAILY Supplement 03/09/24 Farxiga 10 mg tablet (dapagliflozin propanediol) 10 mg PO QDAY Diabetes #90 tabs 04/26/24 Handicap Placard #1 ea 05/09/24 senna-docusate sodium tablet 2 tab PO DAILY Constipation 05/23/24 warfarin 2.5 mg tablet 2.5 mg PO .thursday blood thinner 05/23/24 acetylcysteine 600 mg capsule (NAC) 600 mg PO BID Priuritus 06/13/24 omeprazole 40 mg capsule,delayed release 40 mg PO QDAY GERD 06/13/24 magnesium oxide 400 mg PO QDAY Supplement 06/14/24 guaifenesin 1,200 mg tablet, extended release 12 hr (Mucinex) 1,200 mg PO .QD #30 tabs 06/15/24 ipratropium 0.5 mg-albuterol 3 mg (2.5 mg base)/3 mL nebulization soln 3 ml inhalation Q4H PRN PRN SOB &/OR WHEEZING #180 mL 06/15/24 sildenafil 25 mg tablet (Viagra) 25 mg PO TID 07/27/24 torsemide 20 mg tablet 40 mg (2 x 20 mg) PO .COMPLEX #360 tabs 07/27/24 spironolactone 50 mg tablet 100 mg (2 x 50 mg) PO DAILY #180 tabs 08/03/24 Allergies Allergies clarithromycin (From Biaxin) Allergy (Severe, Verified 07/27/24 10:15) SOB, hives and swelling cephalexin (Cephalexin) Allergy (Verified 07/27/24 10:15) Rash simvastatin Allergy (Verified 07/27/24 10:15) Rash sulfamethoxazole Allergy (Verified 07/27/24 10:15) Rash trimethoprim Allergy (Verified 07/27/24 10:15) Rash/leg swelling bupropion Adverse Reaction (Severe, Verified 07/27/24 10:15) worsened depression adhesive tape Adverse Reaction (Verified 07/27/24 10:15) Itching ciprofloxacin Adverse Reaction (Verified 07/27/24 10:15) Itching Macrolide Antibiotics Adverse Reaction (Verified 07/27/24 10:15) Unknown Penicillins Adverse Reaction (Verified 07/27/24 10:15) Unknown Secretions Thick:: Yes Amount/Day:: 1 TBSP Cough:: Yes AM: Yes Sleep Disorder Evaluation Hx of Sleep Apnea: Yes Do you snore loudly (louder than talking or can be heard through closed doors)?: No Do you often feel tired/ fatigued/ sleepy during daytime?: No Has anyone observed you stop breathing during sleep?: No History of Hypertension (for STOP score): Yes STOP Results: Negative Medical Utilization Medical Devices Do you use a peak flow meter at home?: No Do you use a spacer device with your inhalers?: No Medical Utilization Number of hospital visits in the last year?: 3 Number of emergency room visits in the last year?: 2 Do you see your physician on a regular schedule?: Yes How often?: 1 time a month Advanced Directives Advanced Directives Do you have a Healthcare Power of Exploration Geologist?: Yes Living Will: Yes Advance Directives Information Provided: Yes Advance Directives on File: Yes DNR Order?:: No Past Medical History Covid-19 Screening Physicial Symptoms Other Clinical Concerns Exposure Risk Pertinent Comorbidities Has a chronic lung disease or moderate to severe asthma:: Yes Has a serious heart condition:: Yes Medical History Medical History Abnormal biliary HIDA scan COVID-19 (03/15/24) Cutaneous abscess Wears glasses Wears dentures On home oxygen therapy Cancer Anxiety Hypertension CPAP (continuous positive airway pressure) dependence Positive GBS test Endometrial cancer Secondary pulmonary arterial hypertension Nonrheumatic aortic (valve) stenosis with insufficiency Congenital subaortic stenosis of membranous type Essential (primary) hypertension Narcolepsy Allergic rhinitis Obesity Streptococcal septicemia History of bacterial endocarditis Nonrheumatic mitral valve insufficiency Chronic diastolic (congestive) heart failure Left bundle branch block Asthma HLD (hyperlipidemia) Subvalvar aortic stenosis Obstructive sleep apnea Psoriasis Morbid obesity Surgical History Surgical History History of right heart catheterization (02/19/24) H/O bilateral salpingo-oophorectomy (01/2020) History of robot-assisted laparoscopic hysterectomy (01/2020) Resection of subaortic membrane (2002) History of tubal ligation HX venous access device placed History of mechanical aortic valve replacement (05/13/16) History of mitral valve replacement with mechanical valve (05/13/16) Significant Family History Family History Father CAD (coronary artery disease) Hypertension Mother , age 55 Sudden cardiac Hypertension Abdominal aortic aneurysm rupture Brother Hypertension Sister Hypertension Social History Smoking History Smoking Status: Never smoker Alcohol Use Alcohol Usage: No Occupation Occupation (List type of work in comments):: Retired Functioning ADL/IADL Current Ability Current Ability: Independent: Self-Care (e.g.,grooming, dressing, & bathing), Independent: Ambulation, Independent: Transfer and Independent: Household tasks (e.g., light meal prep, laundry, shopping) Pt Functioning Prior to Problem Prior Functioning: Self-Care (e.g.,grooming, dressing, & bathing): Independent, Ambulation: Independent, Transfer: Independent and Household tasks (e.g., light meal prep, laundry, shopping): Independent Social Environment Status Marital Status: Current Living Arrangements Living Environment:: Family Children How many children do you have?: 4 Do any of your children live nearby?: Yes Safety Do you feel safe in your surroundings?: Yes Assistance Do you need any assistance at home?: no Review of Systems Review of Systems Review of Systems Respiratory: Reports Cough, Pleuritic Pain, SOB at Rest, SOB upon Exertion, Sputum production, Appetite, Normal, Dizziness/Lightheadedness, Fatigue and Sleep, Normal; Denies Wheezing, PVD or Sexual changes Pain Is Patient Pain Free?: Yes Risk Factor Assessment Chief Complaint Chief Complaint: Pulmonary HTN Vital Signs Pulse Rate: 66 Pulse Ox: 96 Blood Pressure: 115/57 Diabetes Diabetic History: Type II Nutrition Referral for Diabetes: Yes Obesity Height: 5 ft 7 in Weight:: 204 lb Weight in Pounds: 204.0 lbs Body Mass Index (BMI): 31.9 Nutritional Referral for Obesity: Yes Physical Activity Physical Inactivity: Recreational activity Risk Stratification Risk Guidelines: Moderate Risk: Risk Factor for Smoking, Risk Factor for Diabetes, Risk Factor for Sedentary Lifestyle and Risk Factor for Depression and Highest Risk: Risk Factor for Dyslipidemia, Risk Factor for Obesity and Risk Factor for Hypertension For Smoking Smoking Risk Guidelines For Dyslipidemia Dyslipidemia Risk Guidelines For Diabetes Mellitus Diabetes Risk Guidelines For Obesity/Overweight Obesity/Overweight Risk Guidelines For Hypertension Hypertension Risk Guidelines For Sedentary Lifestyle Sedentary Lifestyle Risk Guidelines For Depression Depression Risk Guidelines Motivation Motivation to Participate On a scale of 1 to 10, how prepared are you to commit to attending program?: 8 What do you see as barriers to successfully being able to complete the program?: nohting What do you see as the benefits of succesfully completing the program? In other words, what do you hope to get out of participating in the program?: breaqth better, stamina, stronger Are there issues you are dealing with that will interfere with completing the program?: no Do you have a spouse or signficant other, family or friends who will help support you to complete the program?: yes
[2024-08-04 08:04] VITALS: BP 115/57; O2SAT 96
--- NOTE | 2024-08-04 08:04 | PCM.PR.TP ---
General Information2 General Information Admitting Diagnosis: Pulmonary HTN PFT FEV1:: 58 FVC:: 57 FEV1/FVC%:: 101 Personal Learning Style/Barriers Personal Learning Style:: Audio/Visual Barriers to Learning: None Stage of change r/t lifestyle modifications: Contemplation Education/Goals [place] Patient Goals: Increase muscle strength: Initial Assessment, Experience less dyspnea: Initial Assessment, Improve energy level: Initial Assessment, Participate in home exercise: Initial Assessment, Improve diet and nutrition: Initial Assessment and Improve my quality of life: Initial Assessment Exercise - Initial Assessment Visit Date of Eval: 08/04/24 Problem/Goals Problems: Deconditioning, No regular exercise, Knowledge deficit exercise guidelines and Knowledge deficit exercise safety Goals:: Aerobic exercise 30-60 mins x 12 weeks [36 sessions] Physician Prescribed Exercise Modalities: Treadmill, Rower, Schwinn Airdyne AD-7, SciFit Stepper, Ancestry Pro-II Ergometer and Motif [employer]ing[employer] Lateral [place] Frequency (days/week): 3 Duration (Minutes):: 30-45 Intensity: 60-80% of age predicted maximum heart rate reserve Current METSs:: 2 Target HR:: 119 (95-119) Resting Blood Pressure: 115/57 Minimum SpO2 with exercise: 96 (on 3L) Plan Plan and Plan to Review:: Benefits of exercise, Core components of exercise, How to measure dyspnea level, How to monitor dyspnea level, Exercise intensity, Exercise safety guideline, Home exercise guidelines and Jesse: 3-4/11-13 Nutrition/Wt Mgmt - Initial Visit Date of Eval: 08/04/24 (initial eval ) Problems/Goals Problems: Underweight Weight Management Admit Height:: 5 ft 7 in Admit Weight:: 204 lb Admit BMI:: 31.9 Intervention Referral to dietitian:: Yes Will attend diet classes:: Yes Intervention/Plan: Instruct on ideal BMI & set weight loss goal w/patient, Assist pt to ID & incorporate diet changes for weight loss by S9, Refer to Structured Weight Loss program as appropriate, Encourage goal of using 250-300dcal per session for weight loss and Other additional plan/interventions Plan Nutrition Plan: Yes: Review BMI or WC & identify target wt & strategies for wt control, Yes: Nutrition education class:, Yes: Medication education class [Prednisone]:, Yes: Weight control education class:, Yes: Education re: Need for ongoing weight monitoring, Yes: Food diary: and Yes: Physical activity log: Nutrition/Wt Mgmt - 30-Day Weight Management Height: 5 ft 7 in Weight:: 204 lb BMI: 31.9 Nutrition/Wt Mgmt - 60-Day Weight Management Height: 5 ft 7 in Weight:: 204 lb BMI: 31.9 Nutrition/Wt Mgmt - 90-Day Weight Management Height: 5 ft 7 in Weight:: 204 lb BMI: 31.9 Nutrition/Wt Mgmt - Final Weight Management Height: 5 ft 7 in Weight:: 204 lb BMI: 31.9 Psychosocial - Initial Assess Visit Date of Eval: 08/04/24 (initial eval ) Problems/Goals History of Emotional Disorders: None Psychosocial Goals: 1. Patient is free from overwhelming symtoms of depression (or anxiety, 2. Identifies personal stressors & states the strategies for managing, 3. Identifies activities to decrease isolation and/or symptoms of, 4. Improved psychosocial coping skills., 5. Verbalizes coping strategies., 6. Adequate treatment of depression. and 7. Improved Q.O.L. Psychosocial Test Tool Used:: Pulmonary QOL and PHQ-9 Questionnaire PHQ-9 Score: 9 Referred to MD for counseling:: No Referral to Behavioral Health PS - Interventions: Yes: Attend Stress Management Classes Intervention/Plan: See List Interventions/Plan:: Assess stressors,coping strategies & signs of derpression on admission, Instruct/assist pt to develop coping & personal stress Mgt strategies, Refer to Behavioral Health if appropriate, Refer to Physician if appropriate, Instruct patient to recognize signs & symptoms of depression, Instruct patient to recog and Other additional plan/intervention Psychosocial - 30-Day Problems/Goals History of Emotional Disorders: None Psychosocial Goals: 1. Patient is free from overwhelming symtoms of depression (or anxiety, 2. Identifies personal stressors & states the strategies for managing, 3. Identifies activities to decrease isolation and/or symptoms of, 4. Improved psychosocial coping skills., 5. Verbalizes coping strategies., 6. Adequate treatment of depression. and 7. Improved Q.O.L. Psychosocial Test Tool Used:: Pulmonary QOL and PHQ-9 Questionnaire PHQ-9 Score: 9 Referred to MD for counseling:: No Referral to Behavioral Health PS - Interventions: Yes: Attend Stress Management Classes Plan Interventions/Plan:: Assess stressors,coping strategies & signs of derpression on admission, Instruct/assist pt to develop coping & personal stress Mgt strategies, Refer to Behavioral Health if appropriate, Refer to Physician if appropriate, Instruct patient to recognize signs & symptoms of depression, Instruct patient to recog and Other additional plan/intervention Psychosocial - 60-Day Problems/Goals History of Emotional Disorders: None Psychosocial Goals: 1. Patient is free from overwhelming symtoms of depression (or anxiety, 2. Identifies personal stressors & states the strategies for managing, 3. Identifies activities to decrease isolation and/or symptoms of, 4. Improved psychosocial coping skills., 5. Verbalizes coping strategies., 6. Adequate treatment of depression. and 7. Improved Q.O.L. Psychosocial Test Tool Used:: Pulmonary QOL and PHQ-9 Questionnaire PHQ-9 Score: 9 Referred to MD for counseling:: No Referral to Behavioral Health PS - Interventions: Yes: Attend Stress Management Classes Plan Interventions/Plan:: Assess stressors,coping strategies & signs of derpression on admission, Instruct/assist pt to develop coping & personal stress Mgt strategies, Refer to Behavioral Health if appropriate, Refer to Physician if appropriate, Instruct patient to recognize signs & symptoms of depression, Instruct patient to recog and Other additional plan/intervention Psychosocial - 90-Day Problems/Goals History of Emotional Disorders: None Psychosocial Goals: 1. Patient is free from overwhelming symtoms of depression (or anxiety, 2. Identifies personal stressors & states the strategies for managing, 3. Identifies activities to decrease isolation and/or symptoms of, 4. Improved psychosocial coping skills., 5. Verbalizes coping strategies., 6. Adequate treatment of depression. and 7. Improved Q.O.L. Psychosocial Test Tool Used:: Pulmonary QOL and PHQ-9 Questionnaire PHQ-9 Score: 9 Referred to MD for counseling:: No Referral to Behavioral Health PS - Interventions: Yes: Attend Stress Management Classes Plan Interventions/Plan:: Assess stressors,coping strategies & signs of derpression on admission, Instruct/assist pt to develop coping & personal stress Mgt strategies, Refer to Behavioral Health if appropriate, Refer to Physician if appropriate, Instruct patient to recognize signs & symptoms of depression, Instruct patient to recog and Other additional plan/intervention Psychosocial - Final Assess Problems/Goals History of Emotional Disorders: None Psychosocial Goals: 1. Patient is free from overwhelming symtoms of depression (or anxiety, 2. Identifies personal stressors & states the strategies for managing, 3. Identifies activities to decrease isolation and/or symptoms of, 4. Improved psychosocial coping skills., 5. Verbalizes coping strategies., 6. Adequate treatment of depression. and 7. Improved Q.O.L. Psychosocial Test Tool Used:: Pulmonary QOL and PHQ-9 Questionnaire PHQ-9 Score: 9 Referred to MD for counseling:: No Referral to Behavioral Health PS - Interventions: Yes: Attend Stress Management Classes Plan Interventions/Plan:: Assess stressors,coping strategies & signs of derpression on admission, Instruct/assist pt to develop coping & personal stress Mgt strategies, Refer to Behavioral Health if appropriate, Refer to Physician if appropriate, Instruct patient to recognize signs & symptoms of depression, Instruct patient to recog and Other additional plan/intervention Oxygen & Oxygen Titration Init Visit Date of Eval: 08/04/24 (initial eval ) Initial Assessment Oxygen on Admission: Continuous home use and Oxygen w/activity SpO2:: 96 (on 3L) Port O2:: 32 L Patient Reports:: Prod cough daily <1 Tbsp and Hospitalized in the past 12 months [list how many times] (3 times) Goal Oxygen & Oxygen Tritration Goals: Effective hypoxemia control and Uses O2 as Rx'd/safely Plans Plan: Monitor SpO2 rest & with exercise, Recommend appropriate FiO2 to Pt/MD, Assist to contact DME for O2, Train appropriate O2 use at rest, Train appropriate O2 use with exercise and Train O2 safety & systems Reviewed prescribed medications:: Purpose, Schedule, Side effects and Importance of compliance Instruct correct technique/timing & care:: MDI, DPI, Nebulizer and Return demo use of inhaler Bronchial Hygiene Plan: Controlled cough, CPT, Vibratory PEP device, VEST, Role of exercise in secretion clearance, NS Nasal spray, Hydration, Hand hygiene, Evaluate sputum, When to call MD, Signs/symptoms to report:, Influenza/Pneumovax vaccines and Cleaning of respiratory equipment Oxygen & Oxygen Titration 30D Reassessment SpO2:: 96 (on 3L) Oxygen & Oxygen Titration 60D Reassessment SpO2:: 96 (on 3L) Oxygen & Oxygen Titration 90D Reassessment SpO2:: 96 (on 3L) Oxygen & Oxygen Titration JUANJOSE Reassessment SpO2:: 96 (on 3L) Core Components - Initial Visit Date of Eval: 08/04/24 (initial eval ) Hypertension Hypertension Diagnosis:: Hypertension ICD-10 I10 BP: 115/57 Stateless Heart Association Hypertension Guidelines Outcomes/Goals: Able to verbalize/achieve optimal blood pressure <130/80 and Incorporates diet changes & exercise for blood pressure control by DC Tobacco - Initial Assessment Tobacco Program Goals Learning Barriers: Ready to Learn Do you have family support?: Yes Tobacco Use: Non-smoker Exacerbation Mgmt & Airway Clearance Hypoxemia Goals:: Hypoxemia managed, Port system and Using O2 as Rx's safely Bronchial Hygiene Problems:: Ineffective secretion clearance and Respiratory infection Prevention/Management Goals: Pt demonstrates effective cough, effective secretion clearance. and Pt describes signs and symptoms of infection. Patient Reports:: Prod cough daily <1 Tbsp and Hospitalized in the past 12 months [list how many times] (3 times) Plan: Monitor SpO2 rest & with exercise, Recommend appropriate FiO2 to Pt/MD, Assist to contact DME for O2, Train appropriate O2 use at rest, Train appropriate O2 use with exercise and Train O2 safety & systems Instruct correct technique/timing & care:: MDI, DPI, Nebulizer and Return demo use of inhaler Bronchial Hygiene Plan: Controlled cough, CPT, Vibratory PEP device, VEST, Role of exercise in secretion clearance, NS Nasal spray, Hydration, Hand hygiene, Evaluate sputum, When to call MD, Signs/symptoms to report:, Influenza/Pneumovax vaccines and Cleaning of respiratory equipment Medication Interventions/plans: Instruct on medication effects & side effects, Review medication list w/patient every two weeks and Instruct importance of taking meds as ordered & assist problem solving Medication Goals: Adherence to prescribed medications and Correct technique/timing & care of MDI, DPI, nebulizer, and spacer. Does pt report taking home meds as prescribed?: Yes Medications: Yes: MDI and Yes: DPI and No: Spacer Reviewed prescribed medications:: Purpose, Schedule, Side effects and Importance of compliance Diabetes Diabetes:: Yes Insulin: No Do you monitor your blood sugar at home?: Yes Refer to Nutritional Services: Medical Nutrition Therapy Referral to dietitian:: Yes Referral to Diabetic Clinic:: Yes Will attend diet classes:: Yes Core Components - 30 DAYS Hypertension Hypertension Diagnosis:: Hypertension ICD-10 I10 Resting Blood Pressure:: 115/57 Stateless Heart Association Hypertension Guidelines Outcomes/Goals: Able to verbalize/achieve optimal blood pressure <130/80 and Incorporates diet changes & exercise for blood pressure control by DC Tobacco - 30-Day Tobacco Program Goals Do you have family support?: Yes Tobacco Use: Non-smoker Diabetes Diabetes:: Yes Insulin dependent injection/pump?: No Do you monitor your blood sugar at home?: Yes Core Components - 60 DAYS Hypertension Hypertension Diagnosis:: Hypertension ICD-10 I10 Resting Blood Pressure:: 115/57 Stateless Heart [employer] Hypertension Guidelines Outcomes/Goals: Able to verbalize/achieve optimal blood pressure <130/80 and Incorporates diet changes & exercise for blood pressure control by DC Tobacco - 60-Day Tobacco Program Goals Do you have family support?: Yes Tobacco Use: Non-smoker Diabetes Diabetes:: Yes Insulin dependent injection/pump?: No Do you monitor your blood sugar at home?: Yes Core Components - 90 DAYS Hypertension Hypertension Diagnosis:: Hypertension ICD-10 I10 Resting Blood Pressure:: 115/57 Stateless Heart [employer] Hypertension Guidelines Outcomes/Goals: Able to verbalize/achieve optimal blood pressure <130/80 and Incorporates diet changes & exercise for blood pressure control by DC Tobacco - 90-Day Tobacco Program Goals Do you have family support?: Yes Tobacco Use: Non-smoker Diabetes Diabetes:: Yes Insulin dependent injection/pump?: No Do you monitor your blood sugar at home?: Yes Core Components - Final Hypertension Hypertension Diagnosis:: Hypertension ICD-10 I10 Resting Blood Pressure:: 115/57 Stateless Heart [employer] Hypertension Guidelines Outcomes/Goals: Able to verbalize/achieve optimal blood pressure <130/80 and Incorporates diet changes & exercise for blood pressure control by DC Tobacco - Final Tobacco Program Goals Do you have family support?: Yes Tobacco Use: Non-smoker Diabetes Diabetes:: Yes Insulin dependent injection/pump?: No Do you monitor your blood sugar at home?: Yes Patient Health Questionnaire PHQ-9 Screening Initial Assessment: 1. Little interest or pleasure in doing things: Not at all 2. Feeling down, depressed, or hopeless: Not at all 3. Trouble falling or staying asleep, or sleeping too much: More than half the days 4. Feeling tired or having little energy: Nearly every day 5. Poor appetite or overeating: Several days 6. Feeling bad about yourself -- or that you are a failure or have let yourself or your family down: Not at all 7. Trouble concentrating on things, such as reading the newspaper or watching television: Several days 8. Moving or speaking so slowly that other people could have noticed. Or the opposite - being so fidgety or restless that you have been moving around a lot more than usual: Several days 9. Thoughts that you would be better off , or of hurting yourself in some way: Not at all Total Score: 8 Knowledge Questionaire (BCKQ) Information Information: [place] COPD Knowledge Questionnaire (BCKQ) This questionnaire is designed to find out what you know about your lung problem. It should be completed without help form anyone else. This usually takes between 10 and 20 minutes. Your answers will help us to find out what information you need to help you to understand and manage your lung condition. Francesco the eagle which you think is the correct answer. COPD Assessment Test [CAT] Questions Never cough = 0, Cough all the time = 5: 3 No phlegm = 0, Chest full of phlegm = 5: 4 No chest tightness = 0, Chest very tight = 5: 4 No breathless w/exertion = 0, Very breathless w/exertion = 5: 5 No limitations w/activity = 0, Very limited w/activity = 5: 4 Confident leaving home = 0, Not at all confident = 5: 2 Sleep soundly = 0, Don't sleep soundly = 5: 3 Lots of energy = 0, No energy at all = 5: 5 Total CAT score:: 30 Self-Efficacy 6-Item Scale Initial Assessment: We would like to know how confident you are in doing certain activities. Please select your confidence level for: Fatigue Select Number: 4 Physical Discomfort or Pain Select Number: 8 Emotional Distress Select Number: 9 Other Symptoms or Health Problems Select Number: 4 Different Tasks and Activities Select Number: 4 Medication Select Number: 7 Total Score:: 6 Nutrition Survey Nutrition Survey Instructions Scoring Instructions Nutrition Survey Initial: Have you lost >10 lbs over the past 2 months without trying?: Yes Are you following a special diet at home for diabetes, low fat, or low salt?: Yes Are you interested in meeting with a dietitian for help understanding your diet?: Yes Do you eat less than 3 meals a day?: No Do you eat fatty meats (arrington, sausage, ribs, etc), fried foods, desserts, large amounts of salad dressings, margarine, butter, or cheese most days?: Yes Do you have food allergies? [Enter types in comment field]: No Do you eat in restaurants more than 3 times a week?: No Do you season food with salt, seasoning salt, or garlic salt?: Yes Do you used canned, boxed, frozen meals, or soups, seasoning packets?: Yes Total Score:: 6
[2024-08-04 08:12] VITALS: PULSE 66
[2024-08-04 08:56] VITALS: BP 115/57; O2SAT 96; BMI 31.9
[2024-08-04 09:01] VITALS: BP 115/57
[2024-08-04 09:03] VITALS: BMI 31.9
== END | disposition home or self-care (01) ==
LOC: PR 07:56
PROVIDERS: PCP Nurse Practitioner Family; Referring Provider Internal Medicine Pulmonary Disease; Visit Provider Internal Medicine Pulmonary Disease
DX: E66.9 Obesity, unspecified (principal); E78.5 Hyperlipidemia, unspecified

== ENCOUNTER 2024-08-07 15:48 | Emergency (ER) | payer OTHER, SELFPAY ==
[2024-08-04 08:56] VITALS: BMI 31.9
[2024-08-07 15:49] VITALS: BP 108/57; PULSE 75; RESP 24; TEMP 36.9; O2SAT 92; BMI 34.4
--- NOTE | 2024-08-07 16:38 | EKG12_ITS ---
Test Reason : GENERAL Blood Pressure : */* mmHG Vent. Rate : 66 BPM Atrial Rate : * BPM P-R Int : * ms QRS Dur : 144 ms QT Int : 496 ms P-R-T Axes : * -44 142 degrees QTcB Int : 519 ms Atrial fibrillation Left axis deviation Left bundle branch block Abnormal ECG Confirmed by Piotr Pérez ([id number]), magazine editor MOOK QUEEN ([id number]) on 08/12/2024 1:06:28 PM Referred By: Confirmed By: Piotr Pérez
--- NOTE | 2024-08-07 16:45 | EDS_ITS ---
HPI History of Present Illness Chief Complaint: Nausea/Vomiting Narrative Narrative: 64-year-old female with history of endocarditis valvular replacement on Coumadin CHF pulmonary hypertension presenting to the emergency room with indigestion. Patient states that during the night last night she had some mild indigestion but this morning felt more burning in her lower to mid chest as well as a discomfort described as a pressure in the upper back. She states that she held her Coumadin last night and preparations for a thoracentesis for pleural effusion to be performed on Thursday. She is chronically on home oxygen. She states that she has no history of pancreatitis and believes at some point she was told there was something wrong with her gallbladder's but unsure what. She does note some lower extremity swelling but states that they are much better today but still more swollen than normal. Patient denies any fever. She did take her omeprazole this morning. She had some nausea just prior to my history and physical. [facility] Medical History Abnormal biliary HIDA scan COVID-19 (03/15/24) Cutaneous abscess Wears glasses Wears dentures On home oxygen therapy Cancer Anxiety Hypertension CPAP (continuous positive airway pressure) dependence Positive GBS test Endometrial cancer Secondary pulmonary arterial hypertension Nonrheumatic aortic (valve) stenosis with insufficiency Congenital subaortic stenosis of membranous type Essential (primary) hypertension Narcolepsy Allergic rhinitis Obesity Streptococcal septicemia History of bacterial endocarditis Nonrheumatic mitral valve insufficiency Chronic diastolic (congestive) heart failure Left bundle branch block Asthma HLD (hyperlipidemia) Subvalvar aortic stenosis Obstructive sleep apnea Psoriasis Morbid obesity Home Medications ?Medication ?Instructions ?Recorded ?Last Taken ?Type multivitamin with folic acid 400 1 tab PO DAILY SUPPLE METN 05/30/16 05/22/24 History mcg tablet melatonin 5 mg capsule 5 mg PO QHS SLEEP 05/21/20 0 05/22/24 History duloxetine 60 mg capsule,delayed 120 mg PO DAILY Depre ssion 11/08/20 05/22/24 History release (Cymbalta) metoprolol tartrate 25 mg tablet 25 mg PO BID HEART #1 80 tabs 12/11/20 05/22/24 Rx clobetasol 0.05 % topical cream 1 applic topical BID P RN skin 11/05/22 02/01/24 History irritation albuterol sulfate 90 mcg/actuation 2 puff inhalation Q 4H PRN 01/14/23 05/20/24 Rx aerosol inhaler (Ventolin HFA) shortness of breath or wheezing #8.5 grams budesonide-formoterol HFA 160 2 puff inhalation BID Wh eezing/SOB 01/14/23 05/22/24 Rx mcg-4.5 mcg/actuation aerosol #10.2 grams inhaler (Symbicort) fluticasone propionate 50 2 spray intranasal QDAY Nasa l #1 01/14/23 05/22/24 Rx mcg/actuation nasal device spray,suspension (Flonase Allergy Relief) loratadine 10 mg tablet 10 mg PO DAILY ALLERGIES #90 tabs 01/14/23 05/22/24 Rx PEP device #1 ea 05/05/23 Unknown Rx acetaminophen 500 mg tablet 1,000 mg PO DAILY PRN pain 09/08/23 05/23/24 10:02 History (Tylenol Extra Strength) diphenhydramine HCl 25 mg tablet 12.5 mg PO QHS PRN al lergy symptoms 09/08/23 Unknown History (Benadryl Allergy) gabapentin 300 mg capsule 300 mg PO BID Neuropathy 07/2805/22/24 History azelastine 137 mcg (0.1 %) nasal 2 spray intranasal BI D asthma #30 11/11/23 05/22/24 Rx spray mL cholecalciferol (vitamin D3) 1,250 1,250 mcg PO QWEEK Deficiency of 12/15/23 05/17/24 History mcg (50,000 unit) capsule Vitamin D semaglutide 0.25 mg or 0.5 mg (2 0.5 mg subcut QWEEK D M2 12/15/23 05/18/24 History mg/3 mL) subcutaneous pen injector 0.5 mg (Ozempic) warfarin 5 mg tablet 5 mg PO .COMPLEX blood thinn er 02/03/24 05/22/24 Rx #180 tabs multivitamin with minerals 2 tab PO DAILY Supplement 1 05/10/23 05/22/24 History (Hair,Skin and Nails tablet) Farxiga 10 mg tablet 10 mg PO QDAY Diabetes #90 t abs 04/26/24 05/22/24 Rx (dapagliflozin propanediol) Handicap Placard #1 ea 05/09/24 Unknown Rx senna-docusate sodium tablet 2 tab PO DAILY Constipati on 05/23/24 05/23/24 History warfarin 2.5 mg tablet 2.5 mg PO .thursday blood thi nner 05/23/24 05/17/24 History acetylcysteine 600 mg capsule (NAC) 600 mg PO BID Priu ritus 06/13/24 Unknown History omeprazole 40 mg capsule,delayed 40 mg PO QDAY GERD Unknown History release magnesium oxide 400 mg PO QDAY Supplement Unknown History guaifenesin 1,200 mg tablet, 1,200 mg PO .QD #30 tabs 06/15/24 Unknown Rx extended release 12 hr (Mucinex) ipratropium 0.5 mg-albuterol 3 mg 3 ml inhalation Q4H PRN PRN SOB 06/15/24 Unknown Rx (2.5 mg base)/3 mL nebulization &/OR WHEEZING #180 mL soln sildenafil 25 mg tablet (Viagra) 25 mg PO TID 07/27/24 Unknown History torsemide 20 mg tablet 40 mg (2 x 20 mg) PO .COMPLE X #360 07/27/24 Unknown Rx tabs spironolactone 50 mg tablet 50 mg PO DAILY #90 tabs Unknown Rx famotidine 20 mg tablet 20 mg PO BID #10 TABLETS 07/29 Unknown Rx ondansetron 4 mg disintegrating 4 mg PO Q6H PRN PRN Na usea #15 tabs 08/07/24 Unknown Rx tablet Allergy/AdvReac Type Severity Reaction Status Date / Time clarithromycin (From Biaxin) Allergy Severe SOB, hives Verified 08/07/24 15:49 and swelling cephalexin (Cephalexin) Allergy Rash Verified 08/07/24 15:49 simvastatin Allergy Rash Verified 08/07/24 15:49 sulfamethoxazole Allergy Rash Verified 08/07/24 15:49 trimethoprim Allergy Rash/leg Verified 08/07/24 15:49 swelling bupropion AdvReac Severe worsened Verified 08/07/24 15:49 depression adhesive tape AdvReac Itching Verified 08/07/24 15:49 ciprofloxacin AdvReac Itching Verified 08/07/24 15:49 Macrolide Antibiotics AdvReac Unknown Verified 08/07/24 15:49 Penicillins AdvReac Unknown Verified 08/07/24 15:49 Family History Father CAD (coronary artery disease) Hypertension Mother , age 55 Sudden cardiac Hypertension Abdominal aortic aneurysm rupture Brother Hypertension Sister Hypertension Surgical History History of right heart catheterization (02/19/24) H/O bilateral salpingo-oophorectomy (01/2020) History of robot-assisted laparoscopic hysterectomy (01/2020) Resection of subaortic membrane (2002) History of tubal ligation HX venous access device placed History of mechanical aortic valve replacement (05/13/16) History of mitral valve replacement with mechanical valve (05/13/16) Social History household members: spouse number of children: 4 current occupational status: unemployed history of recent travel: No sexually active: Yes Smoking Status: Never smoker alcohol intake: never substance use type: does not use diet: low carbohydrate caffeine: No what type of physical activity do you participate in: walking seatbelt use: always do you feel safe at home: Yes additional social history: - Dylan [employer] ED Constitutional Constitutional ED: Denies chills, fever(s) or weight loss Eyes Eyes: Denies change in vision or diplopia ENT ENT ED: Denies ear pain, rhinorrhea or sore throat Cardiovascular Cardiovascular: Reports chest pain; Denies orthopnea, palpitations or racing heartbeat Respiratory/Chest Respiratory/Chest: Reports cough, dyspnea and dyspnea on exertion; Denies orthopnea Gastrointestinal Gastrointestinal: Denies abdominal pain, diarrhea, nausea or vomiting Genitourinary Genitourinary ED: Denies dysuria, hematuria or urinary frequency Musculoskeletal Musculoskeletal: Reports back pain; Denies arthralgias or myalgias Integumentary Denies abscess or rash Neurologic Neurologic: Denies headache(s) or weakness Psychiatric Psychiatric: Denies anxiety, depression, suicidal ideation or suicidal thoughts Endocrine Endocrinology: Denies polydipsia, polyphagia or polyuria Allergic/Immunologic Allergic/Immunologic ED: Denies mouth swelling, tongue swelling or urticaria EXAM Physical Exam Const Vital Signs: 08/07/24 15:49 08/07/24 17:05 08/07/24 18:56 Temperature 98.5 F Temperature Source Oral Pulse Rate 75 67 61 Respiratory Rate 24 H 18 16 Blood Pressure 108/57 L 121/48 H 109/66 Blood Pressure Mean 74 72 80 Pulse Ox 92 95 94 Oxygen Delivery Method Nasal Cannula Nasal Cannula Room Air Oxygen Flow Rate (L/min) 3 2 08/07/24 19:32 Temperature 98.5 F Temperature Source Pulse Rate 54 L Respiratory Rate 22 H Blood Pressure 104/63 Blood Pressure Mean 76 Pulse Ox 99 Oxygen Delivery Method Oxygen Flow Rate (L/min) Positive well nourished, well developed and obese General Appearance ED: well developed and NAD Nutritional Appearance: obese HEENT Reports normocephalic, head/scalp atraumatic and moist mucous membranes Eyes PERRL and EOMs intact bilaterally Neck no lymphadenopathy, supple and no JVD Resp normal respiratory effort Auscultation: diminished lung sounds right lower Cardio regular rhythm and no murmurs Rhythm: abnormal rhythm irregularly irregular and other (Rate is controlled in the 60s) GI normal to inspection, nondistended, normoactive bowel sounds and non-tender Palpation: soft Back/Spine no CVA tenderness and normal ROM Extremity normal to inspection General Extremety ED: Negative for edema General Extremity: Negative for edema Neuro oriented x3 and CN's II-XII intact bilaterally Sensorium / Orientation: alert Motor Exam: strength 5/5 throughout Psych mental status grossly normal Mood & Affect: Negative for depressed or tearful Skin no rashes or lesions noted and no wounds MDM MDM MDM Narrative Medical decision making narrative: Differential diagnosis includes GERD biliary colic pancreatitis acute coronary syndrome pleurisy pulmonary embolism My independent interpretation of the chest x-ray is small right pleural effusion. Radiology read is pulmonary edema. I compared this to August 03 and did not see a large difference between the 2. Clinically I do not hear Rales or wheezing on lung auscultation. Basic blood work shows a white count of 5.7 hemoglobin 10.4 platelet count of 233. INR is elevated at 3.4 BUN of 21 creatinine 1.12 glucose 140 total bilirubin 0.67 direct bilirubin 0.34 AST and ALT are within normal limits lipase of 39 troponin 1 is 30 and troponin 2 is 29. Patient began to sip some water and felt like her reflux was returning so we gave a GI cocktail. Clinically I think the patient can be discharged home. Her INR is 3.4 I doubt this is pulmonary embolism. I am not seeing evidence of acute coronary syndrome. No evidence of pancreatitis there is no tenderness over gallbladder or liver. Her chest x-ray is unchanged. I can write for some famotidine in addition to her omeprazole short-term [place]a. And also write for some Zofran for home use if needed. Tums as needed. Follow-up with primary care if not improving return if worsening History & Record Review Discussion w/independent historian: Patient and Family Lab Data Attestation: I reviewed the patient's lab results. Labs: Laboratory Results - last 24 hr 08/07/24 08/07/24 16:49 18:49 WBC 5.7 RBC 3.50 L Hgb 10.4 L Hct 32.2 L MCV 92.0 MCH 29.7 MCHC 32.3 RDW Std Deviation 58.6 H RDW Coeff of Ham 17.4 H Plt Count 233 MPV 9.8 Immature Gran % (Auto) 0.300 Neut % (Auto) 70.0 Lymph % (Auto) 17.5 L [place] % (Auto) 9.4 Eos % (Auto) 2.3 Baso % (Auto) 0.5 Absolute Neuts (auto) 4.0 Absolute Lymphs (auto) 1.00 Nucleated RBC % 0 PT 35.3 H INR 3.4 Sodium 137 Potassium 3.2 L Chloride 95 L Carbon Dioxide 31.2 Anion Gap 12 BUN 21 H Creatinine 1.12 Estim Creat Clear Calc 63.21 Est GFR (MDRD) Non-Af 56 L BUN/Creatinine Ratio 18.8 Glucose 140 H Calcium 8.8 Total Bilirubin 0.67 Direct Bilirubin 0.34 H AST 21 ALT 12 Alkaline Phosphatase 69 Troponin T High Sens 30 H Troponin T Hi Sens 2 Hr 29 H Total Protein 7.2 Albumin 3.6 Globulin 3.6 Lipase 39 Radiography Diagnostic Testing: Clinical Impression(s) from Imaging Studies Chest X-Ray 08/07/24 17:13 IMPRESSION: Findings compatible with pulmonary edema. Reading [facility] E[facility] Initial EKG: Attestation: I personally reviewed and interpreted this EKG as follows: Comments: Atrial fibrillation ventricular rate of 66 bpm left bundle branch block noted Prior EKG tracings: available for review Prior: Unchanged Discharge Plan Triage Chief Complaint: Nausea/Vomiting ED Provider: Jhonatan Olivo Dx/Rx/DC Orders Clinical Impression: Chest pain, GERD (gastroesophageal reflux disease), Nausea Instructions: ED GERD (Adult) Prescriptions: New famotidine 20 mg tablet 20 mg PO BID Qty: 10 0RF ondansetron 4 mg tablet,disintegrating 4 mg PO Q6H PRN PRN (Reason: Nausea) Qty: 15 0RF No Action duloxetine [Cymbalta] 60 mg capsule,delayed release(DR/EC) 120 mg PO DAILY metoprolol tartrate 25 mg tablet 25 mg PO BID Qty: 180 3RF acetaminophen [Tylenol Extra Strength] 500 mg tablet 1,000 mg PO DAILY PRN (Reason: pain) albuterol sulfate [Ventolin HFA] 90 mcg/actuation HFA aerosol inhaler 2 puff INHALATION Q4H PRN (Reason: shortness of breath or wheezing) Qty: 8.5 6RF budesonide-formoterol [Symbicort] 160-4.5 mcg/actuation HFA aerosol inhaler 2 puff inhalation BID Qty: 10.2 6RF fluticasone propionate [Flonase Allergy Relief] 50 mcg/actuation spray,suspension 2 spray INTRANASAL QDAY Qty: 1 3RF Rx Instructions: administer into each nostril loratadine 10 mg tablet 10 mg PO DAILY Qty: 90 3RF clobetasol 0.05 % cream 1 applic topical BID PRN (Reason: skin irritation) (DME) PEP device See Rx Instructions .ROUTE .MEDSUPPLY Qty: 1 0RF Rx Instructions: with training cholecalciferol (vitamin D3) 1,250 mcg (50,000 unit) capsule 1,250 mcg PO QWEEK Ozempic 0.25 mg or 0.5 mg (2 mg/3 mL) pen injector 0.5 mg subcut QWEEK diphenhydramine HCl [Benadryl Allergy] 25 mg tablet 12.5 mg PO QHS PRN (Reason: allergy symptoms) gabapentin 300 mg capsule 300 mg PO BID Hair,Skin and Nails Tablet 2 tab PO DAILY dapagliflozin propanediol [Farxiga] 10 mg tablet 10 mg PO QDAY Qty: 90 3RF sildenafil [Viagra] 25 mg tablet 25 mg PO TID torsemide 20 mg tablet 40 mg PO .COMPLEX Qty: 360 3RF Rx Instructions: 40 mg orally; 60mg in the AM and 40mg in the afternoon acetylcysteine [NAC] 600 mg capsule 600 mg PO BID ipratropium-albuterol 0.5 mg-3 mg(2.5 mg base)/3 mL solution for nebulization 3 ml inhalation Q4H PRN PRN (Reason: SOB &/OR WHEEZING) Qty: 180 6RF guaifenesin [Mucinex] 1,200 mg tablet extended release 12hr 1,200 mg PO .QD Qty: 30 3RF multivitamin with folic acid 1 TABLET tablet 1 tab PO DAILY melatonin 5 MG capsule 5 mg PO QHS omeprazole 40 mg capsule,delayed release(DR/EC) 40 mg PO QDAY warfarin 2.5 mg tablet 2.5 mg PO .thursday Protocol: Dose Management Condition: Thursday Dose/Route: 5 mg Instruction: 1 x 5 mg tablet Condition: Thursday Dose/Route: 5 mg Instruction: 1 x 5 mg tablet Condition: Thursday Dose/Route: 5 mg Instruction: 1 x 5 mg tablet Condition: Thursday Dose/Route: 5 mg Instruction: 1 x 5 mg tablet Condition: Dose/Route: 5 mg Instruction: 1 x 5 mg tablet Condition: Thursday Dose/Route: 5 mg Instruction: 1 x 5 mg tablet Condition: Thursday Dose/Route: 5 mg Instruction: 1 x 5 mg tablet Protocol Text: Adjustment Start Date: Thursday08/03/24 INR Value: 3.5 INR Date: 08/03/24 Recheck Date: 08/24/24 senna-docusate sodium Tablet 2 tab PO DAILY azelastine 137 mcg (0.1 %) spray,non-aerosol 2 spray intranasal BID Qty: 30 3RF Rx Instructions: administer into each nostril warfarin 5 mg tablet 5 mg PO .COMPLEX Qty: 180 3RF Protocol: Dose Management Condition: Thursday Dose/Route: 5 mg Instruction: 1 x 5 mg tablet Condition: Thursday Dose/Route: 5 mg Instruction: 1 x 5 mg tablet Condition: Thursday Dose/Route: 5 mg Instruction: 1 x 5 mg tablet Condition: Thursday Dose/Route: 5 mg Instruction: 1 x 5 mg tablet Condition: Dose/Route: 5 mg Instruction: 1 x 5 mg tablet Condition: Thursday Dose/Route: 5 mg Instruction: 1 x 5 mg tablet Condition: Thursday Dose/Route: 5 mg Instruction: 1 x 5 mg tablet Protocol Text: Adjustment Start Date: Thursday08/03/24 INR Value: 3.5 INR Date: 08/03/24 Recheck Date: 08/24/24 Rx Instructions: 5 mg orally daily: please give extra pills for dose changes, dose changes often; (DME) Handicap Placard See Rx Instructions .Route .MEDSUPPLY Qty: 1 0RF Rx Instructions: Good from 03/09/2024-03/09/2029 magnesium oxide 400 mg magnesium tablet 400 mg PO QDAY spironolactone 50 mg tablet 50 mg PO DAILY Qty: 90 3RF Rx Instructions: Hold for serum potassium more than 5.0 Primary Care Provider: Marcia Ramesh Referrals: Marcia Ramesh, [employer] [Primary Care Provider] - 3-5 Days if not improving Print Language: Romansh Disposition Disposition: Home, Self Care Discharge Date/Time: 08/07/24 19:41
[2024-08-07 16:59] LABS: Basophil# 0.03 X10^3/uL; Basophil% 0.5 % (0-1); Eosinophil# 0.13 X10^3/uL; Eosinophils% 2.3 % (0-5); Hematocrit 32.2 % (37-47); Hemoglobin 10.4 g/dL (12.0-15.0); Lymphocyte % 17.5 % (19-41); Mean Corp Hgb Conc 32.3 g/dL (32-36); Mean Corpuscular Hgb 29.7 pg (27.0-32.0); Mean Platelet Vol. 9.8 fl (6.2-12.0); Monocyte# 0.54 X10^3/uL; Monocyte% 9.4 % (0-10); NRBC Flagged by Analyzer 0 % (0-5); Platelet Count 233 K/mm3 (150-450); RBC Distribution Width CV 17.4 % (11.6-14.6); RBC Distribution Width SD 58.6 fl (35.1-43.9); White Blood Count 5.7 K/mm3 (4.4-11.0)
[2024-08-07] MEDS: Ondansetron 4 MG/2 ML Vial IV (17:02)
[2024-08-07] MEDS: Famotidine 200 MG/20 ML MDV 20 MG in 0.9% Normal Saline (Pres. free 8 ML 300 MG IV (17:02)
[2024-08-07 17:05] VITALS: BP 121/48; PULSE 67; RESP 18; O2SAT 95
--- NOTE | 2024-08-07 17:13 | RAD_ITS ---
PROCEDURE: CHEST 1 VIEW (PORTABLE) 08/07/2024 REASON FOR EXAM: PLEURAL EFFUSION TECHNIQUE: Frontal view of the chest. COMPARISON: 08/03/2024 FINDINGS: Hardware: Status post median sternotomy and mitral annular replacement. Heart: Heart size is mildly enlarged. Lungs: Bilateral interstitial thickening. Small right pleural effusion with atelectasis. No pneumothorax. No focal consolidation. Bones: Degenerative changes are identified within the thoracic spine. Other: RAD/Chest 1 View (Portable) IMPRESSION: Findings compatible with pulmonary edema. Reading [facility]
[2024-08-07 17:15] LABS: International Normalized Ratio 3.4; Prothrombin Time (Protime)PT. 35.3 SECONDS (11.7-14.9)
[2024-08-07 17:17] LABS: AST(SGOT) 21 U/L (<=31); Alanine Aminotransfer ALT/SGPT 12 U/L (<=34); Albumin, Serum 3.6 g/dL (3.4-4.8); Alkaline Phosphatase 69 U/L (35-104); Anion Gap 12 (5-15); BUN 21 mg/dL (4-19); BUN/Creat Ratio 18.8 RATIO (10-20); Bilirubin, Direct 0.34 mg/dL (0.00-0.30); Calcium,Total 8.8 mg/dL (7.6-11.0); Carbon Dioxide 31.2 mmol/L (21.0-32.0); Chloride 95 mmol/L (98-108); Creatinine, Serum 1.12 mg/dL (0.70-1.20); EST Glomerular Filtration Rate 56 (>60); Estimated Creatinine Clearance 63.21 ml/min (50-250); Globulin 3.6 g/dL (2.2-4.2); Glucose 140 mg/dL (70-99); Lipase 39 U/L (13-75); Potassium 3.2 mmol/L (3.3-5.1); Protein, Total 7.2 g/dL (5.9-8.4); Sodium Level 137 mmol/L (133-145); Total Bilirubin 0.67 mg/dL (0.00-1.30)
[2024-08-07 17:35] LABS: Troponin T High Sensitivity 30 ng/L (<=14)
[2024-08-07 18:56] VITALS: BP 109/66; PULSE 61; RESP 16; O2SAT 94
[2024-08-07 19:18] LABS: Troponin T High Sens 2 HR 29 ng/L (<=14)
[2024-08-07] MEDS: Lidocaine 2% Viscous15 ML UDC 15 ML PO (19:31)
[2024-08-07] MEDS: Mag Hydrox/Al Hydrox/Simeth 30 ML UDC PO (19:31)
[2024-08-07 19:32] VITALS: BP 104/63; PULSE 54; RESP 22; TEMP 36.9; O2SAT 99
== END 2024-08-07 19:41 | disposition home or self-care (01) ==
PROVIDERS: Emergency Provider Emergency Medicine; PCP Nurse Practitioner Family; Visit Provider Emergency Medicine
DX: R07.9 Chest pain, unspecified (principal); I11.0 Hypertensive heart disease with heart failure; I50.32 Chronic diastolic (congestive) heart failure; K21.9 Gastro-esophageal reflux disease without esophagitis; E78.5 Hyperlipidemia, unspecified; J45.909 Unspecified asthma, uncomplicated; G47.33 Obstructive sleep apnea (adult) (pediatric); Z99.89 Dependence on other enabling machines and devices; Z85.89 Personal history of malignant neoplasm of other organs and systems; Z99.81 Dependence on supplemental oxygen; Z79.899 Other long term (current) drug therapy; F41.9 Anxiety disorder, unspecified; Z90.722 Acquired absence of ovaries, bilateral; Z90.710 Acquired absence of both cervix and uterus; Z98.51 Tubal ligation status; Z95.2 Presence of prosthetic heart valve; R11.0 Nausea; Z79.51 Long term (current) use of inhaled steroids
CPT/HCPCS: 71045; 80048; 80076; 83690; 84484; 85025; 85610; 93005; 96374; 96375; 99284; A4216; J2405

== ENCOUNTER → 2024-08-09 | Outpatient (CLI) | payer OTHER, SELFPAY ==
[2024-08-04 08:56] VITALS: BMI 31.9
--- NOTE | 2024-08-09 08:11 | US_ITS ---
PROCEDURE: CHEST 08/09/2024 REASON FOR EXAM: RIGHT PLEURAL EFFUSION TECHNIQUE: Bilateral pleural ultrasound. COMPARISON: Chest x-ray of 08/07/2024. US/Chest IMPRESSION: The patient presented for planned right thoracentesis. No significant left pleural fluid collection is seen. A small right pleural fluid collection was noted, which was felt to be too smal l to warrant therapeutic thoracentesis. Because of this, the thoracentesis was deferred. No other sonographic finding on this examination. Reading Location: [place] [id number]
[2024-08-09 08:23] LABS: International Normalized Ratio 2.1; Prothrombin Time (Protime)PT. 23.9 SECONDS (11.7-14.9)
[2024-08-09 08:24] LABS: Partial Thromboplast Time 36.5 Seconds (24.1-36.2)
== END | disposition home or self-care (01) ==
LOC: US 08:00
PROVIDERS: Radiology Nuclear Radiology; PCP Nurse Practitioner Family; Referring Provider Internal Medicine Cardiovascular Disease; Visit Provider Internal Medicine Cardiovascular Disease
DX: Z01.812 Encounter for preprocedural laboratory examination (principal); J90 Pleural effusion, not elsewhere classified; Z79.01 Long term (current) use of anticoagulants
CPT/HCPCS: 36415; 76604; 85610; 85730

== ENCOUNTER 2024-08-12 12:02 | Inpatient (IN) | payer OTHER, SELFPAY ==
[2024-08-04 08:56] VITALS: BMI 31.9
[2024-08-12] VITALS (10 sets, daily range): BP systolic 103–118; BP diastolic 53–69; PULSE 54–67; RESP 14–19; TEMP 36.6–36.7; O2SAT 96–100; BMI 36.6; BMI 34.6
--- NOTE | 2024-08-12 12:42 | EX.ED.DYSGE1 ---
HPI <WILNER Lester - Last Filed: 08/12/24 15:20> History of Present Illness Chief Complaint: Syncope Narrative Narrative: Patient presenting today due to a presyncopal episode that occurred this afternoon, her for walking in the parking lot of a restaurant when she began to feel like she could pass out, she reports that her legs then became weak and she lowered herself to the ground. She never actually lost consciousness. She has a PMH of CHF, HTN, valvular replacement on Coumadin, pulmonary hypertension, GERD, and HLD. She recently had her Lasix increased due to weight gain, she is now taking 40 mg twice daily, occasionally adding an additional 20 mg as needed. She reports that despite the increase she has gained about 18 pounds in the past week. She reports that she has gained 4 pounds since yesterday. She does admit to not watching her salt intake and does often eat salty foods. She also reports worsening gastric reflux over the last week or so. She was seen here for this previously and was given famotidine which she has not been taking. She also reports that she has been drinking tomato juice daily as well as eating a lot of spicy foods. PFSH <WILNER Lester - Last Filed: 08/12/24 15:20> [facility] Medical History (Updated 08/15/24 @ 00:01 by Background Daemon) Near syncope Anemia Abnormal biliary HIDA scan COVID-19 (03/15/24) Cutaneous abscess Wears glasses Wears dentures On home oxygen therapy Cancer Anxiety Hypertension CPAP (continuous positive airway pressure) dependence Positive GBS test Endometrial cancer Secondary pulmonary arterial hypertension Nonrheumatic aortic (valve) stenosis with insufficiency Congenital subaortic stenosis of membranous type Essential (primary) hypertension Narcolepsy Allergic rhinitis Obesity Streptococcal septicemia History of bacterial endocarditis Nonrheumatic mitral valve insufficiency Chronic diastolic (congestive) heart failure Left bundle branch block Asthma HLD (hyperlipidemia) Subvalvar aortic stenosis Obstructive sleep apnea Psoriasis Morbid obesity Home Medications ?Medication ?Instructions ?Recorded ?Last Taken ?Type multivitamin with folic acid 400 1 tab PO DAILY SUPPLEMETN 05/30/16 08/11/24 23:00 History mcg tablet 1 TAB melatonin 5 mg capsule 5 mg PO QHS SLEEP 05/21/20 08/11/24 23:00 History 5 mg duloxetine 60 mg capsule,delayed 120 mg PO DAILY Depression 11/08/20 08/12/24 08:00 History release (Cymbalta) 120 mg metoprolol tartrate 25 mg tablet 25 mg PO BID HEART #180 tabs 12/11/20 08/12/24 08:00 Rx 25 mg clobetasol 0.05 % topical cream 1 applic topical BID PRN skin 11/05/22 02/01/24 History irritation albuterol sulfate 90 mcg/actuation 2 puff inhalation Q4H PRN 01/14/23 05/20/24 Rx aerosol inhaler (Ventolin HFA) shortness of breath or wheezing #8.5 grams budesonide-formoterol HFA 160 2 puff inhalation BID Wheezing/SOB 01/14/23 05/22/24 Rx mcg-4.5 mcg/actuation aerosol #10.2 grams inhaler (Symbicort) loratadine 10 mg tablet 10 mg PO DAILY ALLERGIES #90 tabs 01/14/23 05/22/24 Rx PEP device #1 ea 05/05/23 Unknown Rx acetaminophen 500 mg tablet 1,000 mg PO DAILY PRN pain 09/08/23 05/23/24 10:02 History (Tylenol Extra Strength) gabapentin 300 mg capsule 300 mg PO BID Neuropathy 09/08/23 08/12/24 08:00 History 300 mg azelastine 137 mcg (0.1 %) nasal 2 spray intranasal BID asthma #30 11/11/23 05/22/24 Rx spray mL semaglutide 0.25 mg or 0.5 mg (2 0.5 mg subcut QWEEK DM2 12/15/23 08/05/24 08:00 History mg/3 mL) subcutaneous pen injector 0.5 mg (Ozempic) warfarin 5 mg tablet 5 mg PO .COMPLEX blood thinner 02/03/24 08/11/24 23:00 Rx #180 tabs 5 mg Farxiga 10 mg tablet 10 mg PO QDAY Diabetes #90 tabs 04/26/24 08/12/24 08:00 Rx (dapagliflozin propanediol) 10 mg Handicap Placard #1 ea 05/09/24 Unknown Rx senna-docusate sodium tablet 2 tab PO DAILY Constipation 05/23/24 05/23/24 History acetylcysteine 600 mg capsule (NAC) 600 mg PO BID Priuritus 06/13/24 08/12/24 08:00 History 600 mg omeprazole 40 mg capsule,delayed 40 mg PO QDAY GERD 06/13/24 08/12/24 08:00 History release 40 mg magnesium oxide 400 mg PO QDAY Supplement 06/14/24 08/11/24 23:00 History 400 mg ipratropium 0.5 mg-albuterol 3 mg 3 ml inhalation Q4H PRN PRN SOB 06/15/24 Unknown Rx (2.5 mg base)/3 mL nebulization &/OR WHEEZING #180 mL soln sildenafil 25 mg tablet (Viagra) 25 mg PO TID pulmonary htn 07/27/24 Unknown History famotidine 20 mg tablet 20 mg PO BID #10 TABLETS 08/07/24 08/11/24 23:00 Rx 20 mg ondansetron 4 mg disintegrating 4 mg PO Q6H PRN PRN Nausea #15 tabs 08/07/24 08/11/24 23:00 Rx tablet 4 mg sildenafil (pulm.hypertension) 20 20 mg PO TID pulmonary HTN 08/12/24 08/12/24 08:00 History mg tablet 20 mg torsemide 20 mg tablet 40 mg PO BID diuretic 08/12/24 08/12/24 08:00 History 40 mg spironolactone 100 mg tablet 100 mg PO DAILY #180 tabs 08/15/24 Unknown Rx Allergy/AdvReac Type Severity Reaction Status Date / Time clarithromycin (From Biaxin) Allergy Severe SOB, hives Verified 08/12/24 12:09 and swelling cephalexin (Cephalexin) Allergy Rash Verified 08/12/24 12:09 simvastatin Allergy Rash Verified 08/12/24 12:09 sulfamethoxazole Allergy Rash Verified 08/12/24 12:09 trimethoprim Allergy Rash/leg Verified 08/12/24 12:09 swelling bupropion AdvReac Severe worsened Verified 08/12/24 12:09 depression adhesive tape AdvReac Itching Verified 08/12/24 12:09 ciprofloxacin AdvReac Itching Verified 08/12/24 12:09 Macrolide Antibiotics AdvReac Unknown Verified 08/12/24 12:09 Penicillins AdvReac Unknown Verified 08/12/24 12:09 Family History Father CAD (coronary artery disease) Hypertension Mother , age 55 Sudden cardiac Hypertension Abdominal aortic aneurysm rupture Brother Hypertension Sister Hypertension Surgical History (Updated 08/15/24 @ 00:01 by Andrei Mejia) History of right heart catheterization (02/19/24) H/O bilateral salpingo-oophorectomy (01/2020) History of robot-assisted laparoscopic hysterectomy (01/2020) Resection of subaortic membrane (2002) History of tubal ligation HX venous access device placed History of mechanical aortic valve replacement (05/13/16) History of mitral valve replacement with mechanical valve (05/13/16) Social History (Updated 08/12/24 @ 16:29 by Tamia Perea) household members: spouse number of children: 4 current occupational status: unemployed history of recent travel: No sexually active: Yes Smoking Status: Never smoker alcohol intake: never substance use type: does not use diet: low carbohydrate caffeine: No what type of physical activity do you participate in: walking seatbelt use: always do you feel safe at home: Yes additional social history: - Dylan DAIGLE <WILNER Lester - Last Filed: 08/12/24 15:20> ROS ED Constitutional Constitutional ED: Denies chills or fever(s) Cardiovascular Cardiovascular: Denies chest pain Respiratory/Chest Respiratory/Chest: Denies cough or dyspnea Gastrointestinal Gastrointestinal: Denies abdominal pain, nausea or vomiting Genitourinary Genitourinary ED: Reports urinary frequency Musculoskeletal Musculoskeletal: Denies arthralgias or myalgias Integumentary Reports Abrasions Neurologic Neurologic: Denies weakness EXAM <WILNER Lester - Last Filed: 08/12/24 15:20> Physical Exam Const Vital Signs: 08/12/24 12:03 08/12/24 12:42 08/12/24 12:42 Temperature 97.8 F Temperature Source Oral Pulse Rate 56 L Respiratory Rate 19 H Respiratory Effort Normal Non-Labored Respiratory Pattern Normal Blood Pressure 104/59 L Blood Pressure Mean 74 Pulse Ox 96 Oxygen Delivery Method Nasal Cannula Nasal Cannula Oxygen Flow Rate (L/min) 3 Fraction of Inspired Oxygen (FIO2) 3 08/12/24 12:43 08/12/24 13:48 08/12/24 15:01 Temperature Temperature Source Pulse Rate 54 L 57 L 60 Respiratory Rate 18 18 18 Respiratory Effort Respiratory Pattern Blood Pressure 118/63 105/53 L 110/63 Blood Pressure Mean 81 70 78 Pulse Ox 98 98 97 Oxygen Delivery Method Nasal Cannula Nasal Cannula Room Air Oxygen Flow Rate (L/min) 3 3 Fraction of Inspired Oxygen (FIO2) 08/12/24 15:01 Temperature 97.9 F Temperature Source Pulse Rate 60 Respiratory Rate 18 Respiratory Effort Respiratory Pattern Blood Pressure 110/63 Blood Pressure Mean 78 Pulse Ox 98 Oxygen Delivery Method Oxygen Flow Rate (L/min) Fraction of Inspired Oxygen (FIO2) Positive well nourished, well developed and no apparent distress General Appearance ED: well developed HEENT Reports normocephalic and head/scalp atraumatic Mouth ED: Yes moist mucous membranes normal Eyes PERRL and EOMs intact bilaterally Neck full ROM and supple Chest Wall inspection of chest normal Resp normal respiratory effort and clear to auscultation bilaterally Cardio regular rate and regular rhythm GI soft to palpation, non-tender, non-distended and no masses Back/Spine normal ROM and normal to inspection Extremity normal to inspection and full ROM Extremity Narrative: Abrasion to the right knee No lower extremity edema Neuro oriented x3, CN's II-XII intact bilaterally, moves all extremities, no focal motor deficits and no sensory deficits noted Sensorium / Orientation: awake and alert Psych mental status grossly normal and thought process normal Skin Skin Narrative: Aside from abrasion to the right knee no other rashes or lesions noted. <Dr. Janeen Baxter, DO - Last Filed: 08/16/24 05:04> Physical Exam Const Vital Signs: 08/12/24 12:03 08/12/24 12:42 08/12/24 12:42 Temperature 97.8 F Temperature Source Oral Pulse Rate 56 L Respiratory Rate 19 H Respiratory Effort Normal Non-Labored Respiratory Pattern Normal Blood Pressure 104/59 L Blood Pressure Mean 74 Pulse Ox 96 Oxygen Delivery Method Nasal Cannula Nasal Cannula Oxygen Flow Rate (L/min) 3 Fraction of Inspired Oxygen (FIO2) 3 08/12/24 12:43 08/12/24 13:48 08/12/24 15:01 Temperature Temperature Source Pulse Rate 54 L 57 L 60 Respiratory Rate 18 18 18 Respiratory Effort Respiratory Pattern Blood Pressure 118/63 105/53 L 110/63 Blood Pressure Mean 81 70 78 Pulse Ox 98 98 97 Oxygen Delivery Method Nasal Cannula Nasal Cannula Room Air Oxygen Flow Rate (L/min) 3 3 Fraction of Inspired Oxygen (FIO2) 08/12/24 15:01 Temperature 97.9 F Temperature Source Pulse Rate 60 Respiratory Rate 18 Respiratory Effort Respiratory Pattern Blood Pressure 110/63 Blood Pressure Mean 78 Pulse Ox 98 Oxygen Delivery Method Oxygen Flow Rate (L/min) Fraction of Inspired Oxygen (FIO2) MDM <WILNER Lester - Last Filed: 08/12/24 15:20> [facility] Narrative Medical decision making narrative: Patient presenting due to a near syncopal episode that occurred this afternoon. She felt like she was going to pass out and lowered herself to the ground, she did not actually lose consciousness. She reports an 18 pound weight gain over the past week, 4 pounds since yesterday despite increasing her Lasix. She has a history of CHF following with Dr. Whelan. Labs obtained, her BNP is elevated at 7078, this is increased from 07/29 around 1999. Initial troponin slightly elevated at 21. UA obtained due to reports of urinary frequency and is negative for UTI. Chest x-ray shows small pleural effusions but no significant change in comparison to previous x-ray. Given her elevated BNP and weight gain, I do feel she would benefit from admission to the hospital for diuresis. I will speak with the hospitalist and she will be admitted in stable condition. Lab Data Attestation: I reviewed the patient's lab results. Labs: Laboratory Results - last 24 hr 08/12/24 08/12/24 08/12/24 11:51 13:20 14:07 WBC 6.3 RBC 3.62 L Hgb 10.7 L Hct 33.9 L MCV 93.6 MCH 29.6 MCHC 31.6 L RDW Std Deviation 58.4 H RDW Coeff of Ham 17.2 H Plt Count 272 MPV 10.3 Immature Gran % (Auto) 0.500 Neut % (Auto) 68.3 Lymph % (Auto) 17.5 L [place] % (Auto) 11.1 H Eos % (Auto) 2.1 Baso % (Auto) 0.5 Absolute Neuts (auto) 4.3 Absolute Lymphs (auto) 1.10 Nucleated RBC % 0 PT 21.2 H INR 1.8 Sodium 137 Potassium 3.4 Chloride 94 L Carbon Dioxide 31.1 Anion Gap 12 BUN 26 H Creatinine 1.30 H Estim Creat Clear Calc 56.21 Est GFR (MDRD) Non-Af 46 L BUN/Creatinine Ratio 19.7 Glucose 110 H Calcium 9.1 Troponin T High Sens 21 H D Troponin T Hi Sens 2 Hr 18 H NT pro BNP II 7078 H Urine Color Straw Urine Clarity Clear Urine pH 7.0 Ur Specific [place] 1.005 Urine Protein 30 H Urine Glucose (UA) 250 H Urine Ketones Negative Urine Occult Blood Negative Urine Nitrite Negative Urine Bilirubin Negative Urine Urobilinogen Normal Ur Leukocyte Esterase Negative Urine RBC 0 SEEN Urine WBC 0 SEEN Ur Squamous Epith Cells 0-5 SEEN Urine Bacteria 0 SEEN Urine Mucus 0 SEEN Radiography X-Ray: Read by ED Physician Diagnostic Testing: Clinical Impression(s) from Imaging Studies Chest X-Ray 08/12/24 12:55 IMPRESSION: No significant interval change when compared to the earlier study of 08/07/2024. Reading Location: [facility] EKG Initial EKG: Comments: 54 bpm, A-fib, no ST elevation, left bundle branch block, EKG similar to EKG from 08/07/2024, interpreted by attending ED physician <Dr. Janeen Baxter, DO - Last Filed: 08/16/24 05:04> [facility] MDM Narrative Medical decision making narrative: Patient presenting due to a near syncopal episode that occurred this afternoon. She felt like she was going to pass out and lowered herself to the ground, she did not actually lose consciousness. She reports an 18 pound weight gain over the past week, 4 pounds since yesterday despite increasing her Lasix. She has a history of CHF following with Dr. Whelan. Labs obtained, her BNP is elevated at 7078, this is increased from 07/29 around 1999. Initial troponin slightly elevated at 21. UA obtained due to reports of urinary frequency and is negative for UTI. Chest x-ray shows small pleural effusions but no significant change in comparison to previous x-ray. Given her elevated BNP and weight gain, I do feel she would benefit from admission to the hospital for diuresis. I will speak with the hospitalist and she will be admitted in stable condition. I have personally performed a face to face assessment of the patient and have reviewed the VANESSA Note. I performed a substantive portion of the visit including all aspects of the following. My krause findings include: History is Patient is a 64-year-old female with relatively extensive past medical history including severe pulmonary hypertension, CHF, chronic hypoxic respiratory failure, ROYA, proximal atrial fibrillation, valvular heart disease status post mechanical valve replacement on chronic Coumadin therapy presenting for near syncopal episode and concern for fluid overload/weight gain. Patient states she has had increased abdominal swelling and a significant weight gain over the past week despite increasing her Lasix. Today when she was walking to have lunch (at a [employer] restaurant) she started to feel lightheaded and lowered herself to the ground. She did sustain a knee abrasion with this. She does also report acid reflux but also eats a lot of spicy food and has tomato juice daily. Likely is not helping with her CHF. On exam patient is generally weak but nontoxic-appearing. Head normocephalic atraumatic. Moist mucosal membranes. No significant JVD. Heart regular rate and rhythm. Lungs clear to auscultation with no crackles appreciated. Abdomen mildly distended but no fluid wave appreciated. 1+ pain edema of the pretibial areas. Workup looking for cause of her near syncopal episode as well as CHF exacerbation is obtained. She did not fall or hit her head so I do not think she needs a CT of the brain. Chest x-ray viewed by myself as well as radiology does not show any acute process did show chronic appearing findings consistent with CHF. CBC largely normal however she does have mild anemia with hemoglobin 10.7 however this is stable compared to 5 days ago and is near her baseline. BMP shows mild elevation of creatinine but again at her baseline. High sensitivity opponent mildly elevated at 21 but repeat is 18 and also near her baseline. Her BNP is significantly elev. given her worsening symptoms in the setting of increase of her Lasix I do think she would benefit from admission. Case is discussed with hospitalist. Patient is agreeable with plan of care. Started on IV Lasix in the emergency room. Other additions or changes: [None] Lab Data Labs: Laboratory Results - last 24 hr 08/12/24 08/12/24 08/12/24 11:51 13:20 14:07 WBC 6.3 RBC 3.62 L Hgb 10.7 L Hct 33.9 L MCV 93.6 MCH 29.6 MCHC 31.6 L RDW Std Deviation 58.4 H RDW Coeff of Ham 17.2 H Plt Count 272 MPV 10.3 Immature Gran % (Auto) 0.500 Neut % (Auto) 68.3 Lymph % (Auto) 17.5 L [place] % (Auto) 11.1 H Eos % (Auto) 2.1 Baso % (Auto) 0.5 Absolute Neuts (auto) 4.3 Absolute Lymphs (auto) 1.10 Nucleated RBC % 0 PT 21.2 H INR 1.8 Sodium 137 Potassium 3.4 Chloride 94 L Carbon Dioxide 31.1 Anion Gap 12 BUN 26 H Creatinine 1.30 H Estim Creat Clear Calc 56.21 Est GFR (MDRD) Non-Af 46 L BUN/Creatinine Ratio 19.7 Glucose 110 H Calcium 9.1 Troponin T High Sens 21 H D Troponin T Hi Sens 2 Hr 18 H NT pro BNP II 7078 H Urine Color Straw Urine Clarity Clear Urine pH 7.0 Ur Specific [place] 1.005 Urine Protein 30 H Urine Glucose (UA) 250 H Urine Ketones Negative Urine Occult Blood Negative Urine Nitrite Negative Urine Bilirubin Negative Urine Urobilinogen Normal Ur Leukocyte Esterase Negative Urine RBC 0 SEEN Urine WBC 0 SEEN Ur Squamous Epith Cells 0-5 SEEN Urine Bacteria 0 SEEN Urine Mucus 0 SEEN Radiography Diagnostic Testing: Clinical Impression(s) from Imaging Studies Chest X-Ray 08/12/24 12:55 IMPRESSION: No significant interval change when compared to the earlier study of 08/07/2024. Reading Location: [facility] Management Discussion w/another healthcare provider: Hospitalist Discharge Plan Dx/Rx/DC Orders Clinical Impression: Acute exacerbation of CHF (congestive heart failure), Pulmonary hypertension, Near syncope Disposition Disposition: Acute Care Hospital [facility] Discharge Date/Time: 08/12/24 16:03
--- NOTE | 2024-08-12 12:55 | RAD_ITS ---
PROCEDURE: CHEST PA AND LATERAL 08/12/2024 REASON FOR EXAM: SYNCOPE TECHNIQUE: Frontal and lateral views of the chest. COMPARISON: 08/07/2024 FINDINGS: Lungs: Bilateral prominence of the pulmonary interstitial markings redemonstrated. Pleura: Pleural fluid blunts the lateral costophrenic angles. Heart: Moderate cardiac enlargement. Aortic valvular prosthesis. Mediastinum/Melvina: Unremarkable. Great vessels: Unremarkable. Bones/soft tissues: Median sternotomy wires. Multilevel spondylosis. Cardiac monitoring leads overlie the chest wall. RAD/Chest PA and Lateral IMPRESSION: No significant interval change when compared to the earlier study of 08/07/2024 . Reading Location: [facility]
[2024-08-12 13:25] LABS: Bacteria 0 SEEN /hpf (None Seen); Mucous, Urine 0 SEEN /hpf (<or=2+); Red Blood Cells-Urine 0 SEEN /hpf (0-5); White Blood Cells 0 SEEN /hpf (0-5)
[2024-08-12 13:26] LABS: Color, Urine Straw (Yellow); Glucose, Dipstick 250 mg/dl (Normal); Ketone-Dipstick Negative (Negative); Leukocyte Esterase-Dipstick Negative /ul (Negative); Nitrite-Dipstick Negative (Negative); Occult Blood-Urine Negative /ul (Negative); Protein-Dipstick 30 mg/dl (Negative); Specific Gravity, Urine 1.005 (1.002-1.030); Urine Bilirubin Dipstick Negative (Negative); Urine Clarity Clear (Clear); Urine Urobilinogen Normal (Normal)
[2024-08-12 13:48] LABS: Absolute Neutrophil Count 4.3 X10^3/uL (2.0-7.7); Basophil# 0.03 X10^3/uL; Basophil% 0.5 % (0-1); Eosinophil# 0.13 X10^3/uL; Eosinophils% 2.1 % (0-5); Hematocrit 33.9 % (37-47); Hemoglobin 10.7 g/dL (12.0-15.0); Lymphocyte % 17.5 % (19-41); Mean Corp Hgb Conc 31.6 g/dL (32-36); Mean Corpuscular Hgb 29.6 pg (27.0-32.0); Mean Corpuscular Volume 93.6 fL (81-99); Mean Platelet Vol. 10.3 fl (6.2-12.0); Monocyte% 11.1 % (0-10); NRBC Flagged by Analyzer 0 % (0-5); Neutrophil # 4.31 X10^3/uL (2.7-7.7); Neutrophil % 68.3 % (47-70); Platelet Count 272 K/mm3 (150-450); RBC Distribution Width CV 17.2 % (11.6-14.6); RBC Distribution Width SD 58.4 fl (35.1-43.9); Red Blood Count 3.62 M/mm3 (4.2-5.4); White Blood Count 6.3 K/mm3 (4.4-11.0)
[2024-08-12 13:52] LABS: Squamous Epithelial Cells - UA 0-5 SEEN /hpf (5-10)
[2024-08-12 13:54] LABS: International Normalized Ratio 1.8; Prothrombin Time (Protime)PT. 21.2 SECONDS (11.7-14.9)
[2024-08-12 13:59] LABS: Anion Gap 12 (5-15); BUN 26 mg/dL (4-19); BUN/Creat Ratio 19.7 RATIO (10-20); Calcium,Total 9.1 mg/dL (7.6-11.0); Carbon Dioxide 31.1 mmol/L (21.0-32.0); Chloride 94 mmol/L (98-108); EST Glomerular Filtration Rate 46 (>60); Estimated Creatinine Clearance 56.21 ml/min (50-250); Glucose 110 mg/dL (70-99); Potassium 3.4 mmol/L (3.3-5.1); Pro- Brain NATRIURETIC PEPTIDE 7078 pg/mL (<=900); Sodium Level 137 mmol/L (133-145); Troponin T High Sensitivity 21 ng/L (<=14)
[2024-08-12 14:48] LABS: Troponin T High Sens 2 HR 18 ng/L (<=14)
--- NOTE | 2024-08-12 15:55 | CASEMGMT ---
Care Management Face to Face with patient for initial transition planning/care coordination assessment in the ED. This copy writer introduced self and role at [facility]. Patient alert and oriented. Patient willing to participate in assessment and is able to answer all questions appropriately. Care providers, pharmacy, and demographics verified. Admitting Diagnosis: Acute exacerbation of CHF Other diagnosis history: ROYA, depression, COPD, CHF, diabetes PCP: MATHIEU, ying [place] mostly Specialists: Tip, medical records auditor. Clare, pulmonolgist. Friend, skill labor. [facility]erred [facility]acy[facility] Insurance: [employer] [id number] Prescription Benefit: yes Living Will/HPOA: Isaac (primary). Daughter Selam (secondary). LNOK: Isaac, 2 daughters (one lives in [employer] apartments), 2 sons that still live at home (one has special needs) Living Arrangements: patient lives with and two sons in a 2 story home with 10 steps to enter from the front; ramp to enter in the back. Bedroom and bathroom on first floor. Reports being independent with all ADLs/IADLs. Transportation: patient and patient's drive DME: shower chair, walker, CPAP, nebulizer, cane, pulse ox, O2 at 4lpm through [facility]. HHC: reports having HHC after a surgery, but doesn't recall which agency. SNF/Rehab: [facility] Patient goals: Patient wishes to discharge home, denies need for home health care at this time. Patient denies any further needs or concerns at this time. Disposition Plan: admission to acute; RN CM/SW to follow for discharge planning needs that may arise. Kelly Asher, [employer] CLE[employer]ER AND REPAIRER, SURVEY ANALYST
--- NOTE | 2024-08-12 15:55 | PCM.HP.STD ---
HPI - General General Date of Admission: 08/12/24 Date of Service: 08/12/24 Chief Complaint: Presyncope and weight gain HPI Narrative CHELSEA MCKEON, is a 64-year-old female history of ROYA, depression, COPD, CHF, diabetes, valvular replacement on Coumadin, pulmonary hypertension who presented [facility] ED 08/12/2024 due to a presyncopal episode that occurred this afternoon. Patient and her were walking in the parking lot of a restaurant when she began to feel like she could pass out her legs became weak, she then lowered herself to the ground. Patient recently had Lasix increased to 40 mg twice daily due to weight gain over the past week and has gained an additional 4 pounds since yesterday. In the ED temperature 97.8, pulse rate 56 with blood pressure 104/59, pulse ox 96% on 3 L nasal cannula. Hemoglobin 10.7, BMP with a creatinine of 1.30, INR of 1.8, BNP of 7078 and troponin of 21. Chest x-ray with blunting of the costophrenic angles similar to 08/07/2024. There is concern for acute exacerbation of CHF so hospitalist contacted for admission. Patient evaluated bedside. She reports that she has gained 18 pounds this past week despite her increased dose of Lasix, earlier was walking and felt lightheaded, feels this lasted for multiple minutes and when she was lowered down to the ground she was aware of everything going on around her but was not able to respond per patient and family at bedside but there is no complete loss of consciousness. Patient was unable to say if symptoms went away after she laid down but it seemed to be the case. Patient does not necessarily notice any increased shortness of breath but does feel her legs have been more swollen. Denies any chest pain, has a chronic cough with clear thick sputum but no other abnormalities [facility] Medical History Abnormal biliary HIDA scan COVID-19 (03/15/24) Cutaneous abscess Wears glasses Wears dentures On home oxygen therapy Cancer Anxiety Hypertension CPAP (continuous positive airway pressure) dependence Positive GBS test Endometrial cancer Secondary pulmonary arterial hypertension Nonrheumatic aortic (valve) stenosis with insufficiency Congenital subaortic stenosis of membranous type Essential (primary) hypertension Narcolepsy Allergic rhinitis Obesity Streptococcal septicemia History of bacterial endocarditis Nonrheumatic mitral valve insufficiency Chronic diastolic (congestive) heart failure Left bundle branch block Asthma HLD (hyperlipidemia) Subvalvar aortic stenosis Obstructive sleep apnea Psoriasis Morbid obesity Home Medications ?Medication ?Instructions ?Recorded ?Last Taken ?Type multivitamin with folic acid 400 1 tab PO DAILY SUPPLEMETN 05/30/16 05/22/24 History mcg tablet melatonin 5 mg capsule 5 mg PO QHS SLEEP 05/21/20 05/22/24 History duloxetine 60 mg capsule,delayed 120 mg PO DAILY Depression 11/08/20 05/22/24 History release (Cymbalta) metoprolol tartrate 25 mg tablet 25 mg PO BID HEART #180 tabs 12/11/20 05/22/24 Rx clobetasol 0.05 % topical cream 1 applic topical BID PRN skin 11/05/22 02/01/24 History irritation albuterol sulfate 90 mcg/actuation 2 puff inhalation Q4H PRN 01/14/23 05/20/24 Rx aerosol inhaler (Ventolin HFA) shortness of breath or wheezing #8.5 grams budesonide-formoterol HFA 160 2 puff inhalation BID Wheezing/SOB 01/14/23 05/22/24 Rx mcg-4.5 mcg/actuation aerosol #10.2 grams inhaler (Symbicort) loratadine 10 mg tablet 10 mg PO DAILY ALLERGIES #90 tabs 01/14/23 05/22/24 Rx PEP device #1 ea 05/05/23 Unknown Rx acetaminophen 500 mg tablet 1,000 mg PO DAILY PRN pain 09/08/23 05/23/24 10:02 History (Tylenol Extra Strength) gabapentin 300 mg capsule 300 mg PO BID Neuropathy 09/08/23 05/22/24 History azelastine 137 mcg (0.1 %) nasal 2 spray intranasal BID asthma #30 11/11/23 05/22/24 Rx spray mL semaglutide 0.25 mg or 0.5 mg (2 0.5 mg subcut QWEEK DM2 12/15/23 05/18/24 History mg/3 mL) subcutaneous pen injector 0.5 mg (Ozempic) warfarin 5 mg tablet 5 mg PO .COMPLEX blood thinner 02/03/24 05/22/24 Rx #180 tabs Farxiga 10 mg tablet 10 mg PO QDAY Diabetes #90 tabs 04/26/24 05/22/24 Rx (dapagliflozin propanediol) Handicap Placard #1 ea 05/09/24 Unknown Rx senna-docusate sodium tablet 2 tab PO DAILY Constipation 05/23/24 05/23/24 History acetylcysteine 600 mg capsule (NAC) 600 mg PO BID Priuritus 06/13/24 Unknown History omeprazole 40 mg capsule,delayed 40 mg PO QDAY GERD 06/13/24 Unknown History release magnesium oxide 400 mg PO QDAY Supplement 06/14/24 Unknown History ipratropium 0.5 mg-albuterol 3 mg 3 ml inhalation Q4H PRN PRN SOB 06/15/24 Unknown Rx (2.5 mg base)/3 mL nebulization &/OR WHEEZING #180 mL soln sildenafil 25 mg tablet (Viagra) 25 mg PO TID 07/27/24 Unknown History torsemide 20 mg tablet 40 mg (2 x 20 mg) PO .COMPLEX #360 07/27/24 Unknown Rx tabs spironolactone 50 mg tablet 50 mg PO DAILY #90 tabs 08/04/24 Unknown Rx famotidine 20 mg tablet 20 mg PO BID #10 TABLETS 08/07/24 Unknown Rx ondansetron 4 mg disintegrating 4 mg PO Q6H PRN PRN Nausea #15 tabs 08/07/24 Unknown Rx tablet Allergy/AdvReac Type Severity Reaction Status Date / Time clarithromycin (From Biaxin) Allergy Severe SOB, hives Verified 08/12/24 12:09 and swelling cephalexin (Cephalexin) Allergy Rash Verified 08/12/24 12:09 simvastatin Allergy Rash Verified 08/12/24 12:09 sulfamethoxazole Allergy Rash Verified 08/12/24 12:09 trimethoprim Allergy Rash/leg Verified 08/12/24 12:09 swelling bupropion AdvReac Severe worsened Verified 08/12/24 12:09 depression adhesive tape AdvReac Itching Verified 08/12/24 12:09 ciprofloxacin AdvReac Itching Verified 08/12/24 12:09 Macrolide Antibiotics AdvReac Unknown Verified 08/12/24 12:09 Penicillins AdvReac Unknown Verified 08/12/24 12:09 Family History Father CAD (coronary artery disease) Hypertension Mother , age 55 Sudden cardiac Hypertension Abdominal aortic aneurysm rupture Brother Hypertension Sister Hypertension Surgical History History of right heart catheterization (02/19/24) H/O bilateral salpingo-oophorectomy (01/2020) History of robot-assisted laparoscopic hysterectomy (01/2020) Resection of subaortic membrane (2002) History of tubal ligation HX venous access device placed History of mechanical aortic valve replacement (05/13/16) History of mitral valve replacement with mechanical valve (05/13/16) Social History household members: spouse number of children: 4 current occupational status: unemployed history of recent travel: No sexually active: Yes Smoking Status: Never smoker alcohol intake: never substance use type: does not use diet: low carbohydrate caffeine: No what type of physical activity do you participate in: walking seatbelt use: always do you feel safe at home: Yes additional social history: - Dylan DAIGLE PILO Narrative General: Denies fever/chills HENT: Occasionally gets headaches, denies stuffy nose, denies sore throat EYES: Denies changes in vision Resp: Denies cough, baseline shortness of breath Cardiac: Denies chest pain GI: Denies abdominal pain, does have some problems with constipation, has had some reflux symptoms this past week : Denies changes in urination Extremity: Does have increased swelling in lower extremities MSK: Denies weakness Neuro: Denies any numbness/tingling Heme: Denies any bleeding or bruising Skin: Denies rashes Psychiatric: No complaints voiced Vital Signs Vital Signs Vital Signs: 08/12/24 12:03 08/12/24 12:42 08/12/24 12:42 Temperature 97.8 F Temperature Source Oral Pulse Rate 56 L Respiratory Rate 19 H Respiratory Effort Normal Non-Labored Respiratory Pattern Normal Blood Pressure 104/59 L Blood Pressure Mean 74 Pulse Ox 96 Oxygen Delivery Method Nasal Cannula Nasal Cannula Oxygen Flow Rate (L/min) 3 Fraction of Inspired Oxygen (FIO2) 3 08/12/24 12:43 08/12/24 13:48 08/12/24 15:01 Temperature Temperature Source Pulse Rate 54 L 57 L 60 Respiratory Rate 18 18 18 Respiratory Effort Respiratory Pattern Blood Pressure 118/63 105/53 L 110/63 Blood Pressure Mean 81 70 78 Pulse Ox 98 98 97 Oxygen Delivery Method Nasal Cannula Nasal Cannula Room Air Oxygen Flow Rate (L/min) 3 3 Fraction of Inspired Oxygen (FIO2) 08/12/24 15:01 Temperature 97.9 F Temperature Source Pulse Rate 60 Respiratory Rate 18 Respiratory Effort Respiratory Pattern Blood Pressure 110/63 Blood Pressure Mean 78 Pulse Ox 98 Oxygen Delivery Method Oxygen Flow Rate (L/min) Fraction of Inspired Oxygen (FIO2) Weight Weight: 106 kg Body Mass Index (BMI) 36.6 Physical Exam Narrative General: Alert, oriented, no apparent distress HEENT: Atraumatic, normocephalic Eyes: Anicteric, normal conjunctiva, extraocular movements grossly intact Neck: Supple Respiratory: Slight increased respiratory effort with some fine crackles at the bases Cardiovascular: Irregularly irregular GI: Soft, nontender, nondistended Extremities: No significant edema but patient has on tight compression hose and notes that they have been worse than baseline Musculoskeletal: Moving all extremities Neuro: No overt focal neurological deficits Skin: No rashes appreciated Psych: Cooperative Results Lab / Micro Data 08/12/24 11:51 08/12/24 11:51 Labs: Laboratory Results - last 24 hr 08/12/24 11:51: WBC 6.3, RBC 3.62 L, Hgb 10.7 L, Hct 33.9 L, MCV 93.6, MCH 29.6, MCHC 31.6 L, RDW Std Deviation 58.4 H, RDW Coeff of Ham 17.2 H, Plt Count 272, MPV 10.3, Immature Gran % (Auto) 0.500, Neut % (Auto) 68.3, Lymph % (Auto) 17.5 L, [place] % (Auto) 11.1 H, Eos % (Auto) 2.1, Baso % (Auto) 0.5, Absolute Neuts (auto) 4.3, Absolute Lymphs (auto) 1.10, Nucleated RBC % 0, PT 21.2 H, INR 1.8, Sodium 137, Potassium 3.4, Chloride 94 L, Carbon Dioxide 31.1, Anion Gap 12, BUN 26 H, Creatinine 1.30 H, Estim Creat Clear Calc 56.21, Est GFR (MDRD) Non-Af 46 L, BUN/Creatinine Ratio 19.7, Glucose 110 H, Calcium 9.1, Troponin T High Sens 21 H D, NT pro BNP II 7078 H 08/12/24 13:20: Urine Color Straw, Urine Clarity Clear, Urine pH 7.0, Ur Specific [place] 1.005, Urine Protein 30 H, Urine Glucose (UA) 250 H, Urine Ketones Negative, Urine Occult Blood Negative, Urine Nitrite Negative, Urine Bilirubin Negative, Urine Urobilinogen Normal, Ur Leukocyte Esterase Negative, Urine RBC 0 SEEN, Urine WBC 0 SEEN, Ur Squamous Epith Cells 0-5 SEEN, Urine Bacteria 0 SEEN, Urine Mucus 0 SEEN 08/12/24 14:07: Troponin T Hi Sens 2 Hr 18 H Imaging Radiology Impression Chest X-Ray 08/12/24 12:55 IMPRESSION: No significant interval change when compared to the earlier study of 08/07/2024. Reading Location: [facility] Assessment & Plan Assessment/Plan (1) Acute exacerbation of CHF (congestive heart failure): PLAN: Plan # Presyncope -admit to telemetry -EGK A-fib with rate of 54 -orthostatic vital signs -will obtain echo -May need to consider Holter monitor and DC pending workup -Blood pressure also is borderline at 105/53 soon as possible that it was due to drop in blood pressure #Acute exacerbation of chronic heart failure with preserved ejection fraction -Admit to telemetry -proBNP 7078 -CXR blunting of the costophrenic angles -Continue IV lasix -Last echo 10/06/2023 with an EF of 65% and stable appearing mechanical mitral and aortic valve apparatus, PASP of 80 -Repeat echo ordered -Daily weights, I's and O's -Fluid restriction, heart healthy diet # Elevated troponin -Minimally elevated at 21 decreased to 18 -Suspect this is due to patient's heart failure exacerbation #Chron hypoxic resp failure - Secondary to patient's pulmonary hypertension -Patient on 3 L O2 -Continue home medications #Paroxysmal Atrial Fibrillation -Rate control: Beta-radha -Anticoagulation: Coumadin patient not therapeutic, will bridged with full dose Lovenox #Pulm HTN -Continue home sildenafil #GERD -Continue PPI, will increase to twice daily given patient's worsening complaints of reflux though was endorsed she has been eating spicy foods and drinking tomato juice, suspect this may be exacerbating this #Hx Mech AV and MV replacement on coumadin -INR only 1.8 as she had held her Coumadin for what was supposed to be thoracentesis on Thursday however the effusion resorbed and it was not necessary, she was not bridged for this, she is agreeable to bridging at this time given her multiple mechanical valves #ROYA -Continue home NIPPV, she reports is to bring hers in from home #Depression/anxiety -Continue home medications #Hx asthma -Continue home inhalers -Incentive spirometer #Type 2 diabetes mellitus -Glucose checks and sliding scale insulin #DVT ppx: Patient being bridged with full dose Lovenox Karol Palacios MD Charges/Coding Visit Charges Inpatient E&M: 27782 Init Hosp L2
--- NOTE | 2024-08-12 16:49 | ECHOCS_ITS ---
Reason For Study Reason For Study: CHF Procedure This was a 2D Doppler, Color Flow transthoracic echocardiogram. The study was technically difficult. Exam performed portable in patient room. Left Ventricle Moderate concentric left ventricular hypertrophy. Normal LV size. The LV systolic function is normal. EF is 65 %. Stage 1 diastolic dysfunction. Right Ventricle Normal right ventricle. Atria There is moderate biatrial dilatation. Mitral Valve Prosthetic mitral valve appeared to be functioning normally. Mean peak gradient 4 mmHg which is comparable to previous study from October 2023. Tricuspid Valve Moderate (2+) tricuspid valve insufficiency. Right ventricular systolic pressure estimated to be 80 mmHg. Aortic Valve Mechanical aortic valve mean peak gradient 23 mmHg which is not significantly different from previous study from October 2023. Pulmonic Valve The pulmonic valve is not well visualized. Great Vessels Normal sized aortic root. Medication Diluted definity 1.0ml given slow IV push to enhance endocardial definition. MMode/2D Measurements & Calculations LVIDd: 4.2 cm IVSd: 1.5 cm LVOT diam: 1.9 cm LVIDs: 2.7 cm LVPWd: 1.3 cm LVOT area: 2.9 cm2 RVDd: 4.4 cm FS: 36.5 % Ao root diam: 3.2 cm LAV(MOD-bp): 64.8 ml LVAd ap4: 30.1 cm2 LAV(MOD-bp) Indexed: 30.7 ml/m2 LVLd ap4: 8.0 cm LAV(MOD-sp2): 82.7 ml EDV(MOD-sp4): 93.2 ml LAV(MOD-sp4): 50.6 ml EDV(sp4-el): 95.7 ml LVAs ap4: 18.9 cm2 LVLs ap4: 7.2 cm ESV(MOD-sp4): 41.2 ml ESV(sp4-el): 42.3 ml EF(MOD-sp4): 55.7 % EF(sp4-el): 55.8 % LVAd ap2: 33.9 cm2 SV(MOD-sp4): 51.9 ml SV(MOD-sp2): 80.7 ml LVLd ap2: 8.4 cm SI(MOD-sp4): 24.6 ml/m2 SI(MOD-sp2): 38.3 ml/m2 EDV(MOD-sp2): 110.6 ml EDV(sp2-el): 115.9 ml LVAs ap2: 15.9 cm2 LVLs ap2: 6.9 cm ESV(MOD-sp2): 29.9 ml ESV(sp2-el): 30.8 ml EF(MOD-sp2): 72.9 % SV(sp4-el): 53.4 ml LA A4 area: 20.7 cm2 RA A4 area: 23.7 cm2 TAPSE: 1.7 cm Doppler Measurements & Calculations Lat Peak E' Ej: 8.6 cm/sec Med Peak E' Ej: 6.5 cm/sec MV V2 max: 210.3 cm/sec MV max P.7 mmHg MV V2 mean: 83.2 cm/sec MV mean P.2 mmHg MV V2 VTI: 46.9 cm MVA(VTI): 1.9 cm2 MV P1/2t max ej: 206.1 cm/sec Ao V2 max: 352.9 cm/sec LV V1 max: 128.0 cm/sec MV P1/2t: 58.2 msec Ao max P.1 mmHg LV V1 max P.6 mmHg MV dec slope: 1037 cm/sec2 Ao V2 mean: 225.6 cm/sec LV V1 mean P.4 mmHg Ao mean P.8 mmHg LV V1 mean: 87.1 cm/sec MVA(P1/2t): 3.8 cm2 Ao V2 VTI: 70.0 cm LV V1 VTI: 31.1 cm AV (velocity ratio): 0.44 KERRY(I,D): 1.3 cm2 KERRY(V,D): 1.0 cm2 SV(LVOT): 89.6 ml PA V2 max: 116.7 cm/sec TR max ej: 402.5 cm/sec TR max P.8 mmHg ECHO/Echo Complete W/ Contrast Interpretation Summary Moderate concentric left ventricular hypertrophy. The LV systolic function is normal. EF is 65 %. Stage 1 diastolic dysfunction. There is moderate biatrial dilatation. Prosthetic mitral valve appeared to be functioning normally. Mean peak gradient 4 mmHg which is comparable to previous study from October 2023. Moderate (2+) tricuspid valve insufficiency. Right ventricular systolic pressure estimated to be 80 mmHg. Severe pulmonary h ypertension. Mechanical aortic valve mean peak gradient 23 mmHg which is not significantly d ifferent from previous study from October 2023. The study was technically difficult. Ordering Physician: Karol Palacios Referring Physician: Marcia Ramesh Performed By: Elsie Tucker, HAI
[2024-08-12] MEDS: 0.9% Saline Lock 10 ML Syringe IV ×2 (17:55→21:41)
[2024-08-12] MEDS: Furosemide 40 MG/4 ML Vial IV (17:55)
[2024-08-12] MEDS: Albuterol 2.5 MG/3 ML VIAL.NEB. INHALATION (19:29)
[2024-08-12] MEDS: Budesonide Respules 0.5 MG/2 ML AMPUL.NEB. INHALATION (19:29)
[2024-08-12] MEDS: Metoprolol Tartrate 25 MG Tablet PO (21:35)
[2024-08-12] MEDS: Enoxaparin 100 MG/ML Syringe SC (21:38)
[2024-08-12] MEDS: Pantoprazole Sodium 40 MG Tablet PO (21:39)
[2024-08-12] MEDS: Sildenafil Citrate 20 MG TABLET PO (21:40)
[2024-08-12] MEDS: Famotidine 20 MG Tablet PO (21:40)
[2024-08-12] MEDS: ACETYLCYSTEINE 600 MG CAPSULE PO (21:40)
[2024-08-12] MEDS: Gabapentin 300 MG Capsule PO (21:46)
[2024-08-12] MEDS: MELATONIN 3 MG TABLET PO (21:46)
[2024-08-12 21:47] LABS: Bedside Glucose 143 mg/dL (74-106)
[2024-08-13] VITALS (11 sets, daily range): BP systolic 92–122; BP diastolic 48–71; PULSE 56–79; RESP 16–18; TEMP 36.6–36.8; O2SAT 93–99; BMI 34.9
[2024-08-13] MEDS: Sildenafil Citrate 20 MG TABLET PO ×3 (06:34→21:30)
[2024-08-13 07:02] LABS: Bedside Glucose 108 mg/dL (74-106)
[2024-08-13 07:14] LABS: Absolute Neutrophil Count 3.7 X10^3/uL (2.0-7.7); Basophil# 0.04 X10^3/uL; Basophil% 0.7 % (0-1); Eosinophil# 0.12 X10^3/uL; Hematocrit 31.8 % (37-47); Hemoglobin 10.1 g/dL (12.0-15.0); Lymphocyte % 20.4 % (19-41); Mean Corp Hgb Conc 31.8 g/dL (32-36); Mean Corpuscular Volume 94.4 fL (81-99); Mean Platelet Vol. 10.4 fl (6.2-12.0); Monocyte# 0.79 X10^3/uL; Monocyte% 13.5 % (0-10); NRBC Flagged by Analyzer 0 % (0-5); Neutrophil # 3.68 X10^3/uL (2.7-7.7); Neutrophil % 62.7 % (47-70); Platelet Count 252 K/mm3 (150-450); RBC Distribution Width CV 17.2 % (11.6-14.6); RBC Distribution Width SD 59.4 fl (35.1-43.9); Red Blood Count 3.37 M/mm3 (4.2-5.4); White Blood Count 5.9 K/mm3 (4.4-11.0)
[2024-08-13] MEDS: Budesonide Respules 0.5 MG/2 ML AMPUL.NEB. INHALATION ×2 (07:41→19:45)
[2024-08-13] MEDS: Albuterol 2.5 MG/3 ML VIAL.NEB. INHALATION ×3 (07:41→19:45)
[2024-08-13 08:04] LABS: Anion Gap 12 (5-15); BUN 25 mg/dL (4-19); BUN/Creat Ratio 18.3 RATIO (10-20); Calcium,Total 8.8 mg/dL (7.6-11.0); Carbon Dioxide 31.8 mmol/L (21.0-32.0); Chloride 95 mmol/L (98-108); Creatinine, Serum 1.37 mg/dL (0.70-1.20); EST Glomerular Filtration Rate 44 (>60); Glucose 113 mg/dL (70-99); Potassium 3.4 mmol/L (3.3-5.1); Sodium Level 139 mmol/L (133-145)
[2024-08-13 08:17] LABS: International Normalized Ratio 2.5; Prothrombin Time (Protime)PT. 27.3 SECONDS (11.7-14.9)
--- NOTE | 2024-08-13 08:42 | PN.HOSP_ITS ---
Reason for Visit Reason for Visit: Presyncope Subjective Subjective Patient states overall she is feeling better. Having some bloody nose which she has intermittent issues with due to anticoagulation and chronic needs for oxygen. No other presyncopal episodes. No significant lightheadedness this morning despite her blood pressures being a little bit low. She has not been able to follow-up with a pulmonary hypertension specialist due to her insurance. She has tried only at [facility] and I suggested trying at [facility] as I think she would benefit from seeing somebody who so specializes in pulmonary hypertension Objective Data Objective Data Vital Signs: Vital Signs Temp Pulse Resp BP Pulse Ox O2 Del Method O2 Flow Rate 97.9 F 58 L 16 103/69 99 Nasal Cannula 2 08/13/24 05:02 08/13/24 07:42 08/13/24 07:42 08/13/24 05:04 08/13/24 07:42 08/13/24 07:42 08/13/24 07:42 FiO2 3 08/12/24 12:03 Oxygen Flow Rate (L/min) 2 Oxygen Delivery Method Nasal Cannula Weight: 101.4 kg Body Mass Index (BMI) 34.9 Intake & Output: Intake and Output for Last 24 Hours 08/11/24 08/12/24 08/13/24 23:59 23:59 23:59 Intake Total 450 / 450 Output Total 200 / 200 Balance 250 / 250 Lab / Micro Data 08/13/24 06:15 08/13/24 06:15 Labs: Laboratory Results - last 24 hr 08/12/24 11:51: WBC 6.3, RBC 3.62 L, Hgb 10.7 L, Hct 33.9 L, MCV 93.6, MCH 29.6, MCHC 31.6 L, RDW Std Deviation 58.4 H, RDW Coeff of Ham 17.2 H, Plt Count 272, MPV 10.3, Immature Gran % (Auto) 0.500, Neut % (Auto) 68.3, Lymph % (Auto) 17.5 L, [place] % (Auto) 11.1 H, Eos % (Auto) 2.1, Baso % (Auto) 0.5, Absolute Neuts (auto) 4.3, Absolute Lymphs (auto) 1.10, Nucleated RBC % 0, PT 21.2 H, INR 1.8, Sodium 137, Potassium 3.4, Chloride 94 L, Carbon Dioxide 31.1, Anion Gap 12, BUN 26 H, Creatinine 1.30 H, Estim Creat Clear Calc 56.21, Est GFR (MDRD) Non-Af 46 L, BUN/Creatinine Ratio 19.7, Glucose 110 H, Calcium 9.1, Troponin T High Sens 21 H D, NT pro BNP II 7078 H 08/12/24 13:20: Urine Color Straw, Urine Clarity Clear, Urine pH 7.0, Ur Specific [place] 1.005, Urine Protein 30 H, Urine Glucose (UA) 250 H, Urine Ketones Negative, Urine Occult Blood Negative, Urine Nitrite Negative, Urine Bilirubin Negative, Urine Urobilinogen Normal, Ur Leukocyte Esterase Negative, Urine RBC 0 SEEN, Urine WBC 0 SEEN, Ur Squamous Epith Cells 0-5 SEEN, Urine Bacteria 0 SEEN, Urine Mucus 0 SEEN 08/12/24 14:07: Troponin T Hi Sens 2 Hr 18 H 08/12/24 20:59: POC Glucose 143 H 08/13/24 06:15: WBC 5.9, RBC 3.37 L, Hgb 10.1 L, Hct 31.8 L, MCV 94.4, MCH 30.0, MCHC 31.8 L, RDW Std Deviation 59.4 H, RDW Coeff of Ham 17.2 H, Plt Count 252, MPV 10.4, Immature Gran % (Auto) 0.700, Neut % (Auto) 62.7, Lymph % (Auto) 20.4, [place] % (Auto) 13.5 H, Eos % (Auto) 2.0, Baso % (Auto) 0.7, Absolute Neuts (auto) 3.7, Absolute Lymphs (auto) 1.20, Nucleated RBC % 0, PT 27.3 H, INR 2.5, Sodium 139, Potassium 3.4, Chloride 95 L, Carbon Dioxide 31.8, Anion Gap 12, BUN 25 H, Creatinine 1.37 H, Estim Creat Clear Calc 52.10, Est GFR (MDRD) Non-Af 44 L, BUN/Creatinine Ratio 18.3, Glucose 113 H, Calcium 8.8 08/13/24 06:33: POC Glucose 108 H Radiography Diagnostic Testing: Radiology Impression Chest X-Ray 08/12/24 12:55 IMPRESSION: No significant interval change when compared to the earlier study of 08/07/2024. Reading Location: [facility] Physical Exam Const alert, oriented x3, no apparent distress and well nourished; Negative for average body habitus or healthy appearing Constitutional Narrative: Obese, upper middle-aged, white female, sitting up in bed watching television, appears comfortable, nontoxic, appears chronically ill HEENT head/scalp atraumatic and moist oral mucous membranes HEENT Narrative: Mallampati 3, no thrush Head and Scalp: normocephalic Resp normal respiratory effort, no retractions, no use of accessory muscles and clear to auscultation bilaterally Auscultation: Negative for rales, rhonchi or wheezes Cardio regular rate, regular rhythm, S1 normal heart sound, S2 normal heart sound, no murmurs, no rub, no gallops and no clicks GI normal to inspection, nondistended, normoactive bowel sounds, soft to palpation and non-tender Extremity no clubbing, cyanosis or edema Extremity Narrative: 2+ pedal and radial pulses Neuro oriented x3, moves all extremities and no focal motor deficits Speech: speech normal Psych Psych Narrative: Affect is slightly flat, eye contact is good and patient interacts appropriately Assessment & Plan Assessment/Plan (1) Near syncope: PLAN: Plan Presyncope - No significant abnormalities on telemetry - EKG on admission was A-fib with rate of 54 - Orthostatic vitals are not positive - Echocardiogram is stable - EF is 65% with moderate concentric LVH, stage I diastolic dysfunction, moderate biatrial dilation, stable appearing mitral valve, moderate tricuspid valve insufficiency, right ventricular systolic pressure is 80 mmHg with severe pulmonary hypertension and mechanical aortic valve has not changed since her last study in October 2023. - May be related to her pulmonary hypertension - Needs to find a pulmonary hypertension specialist and was declined by [facility] due to her insurance I have asked her to check at [facility] as I feel she would benefit from somebody who so specializes in pulmonary hypertension -Will plan on event monitor at discharge Acute on chronic HFpEF - BNP was elevated on presentation and patient had blunting of the costophrenic angles on admission - Will stop diuresis with borderline blood pressures as she seems to be stable from a respiratory standpoint and restart her home diuretic tomorrow - Echocardiogram stable as noted above - Continue Aldactone -continue metoprolol Troponin elevation - Mildly elevated with the reduction in delta - Secondary to chronic cardiac issues and pulmonary hypertension Chronic hypoxic respiratory failure secondary to pulmonary artery hypertension - Patient on 3 L [id number] at baseline - Continue home Aubagio - Highly recommend outpatient follow-up with a pulmonary hypertension specialist--patient to call [facility] to see if they will take her insurance> History of mechanical aortic valve and mechanical mitral valve - INR subtherapeutic on presentation and Lovenox was added to bridge to avoid valve thrombosis - INR is now therapeutic at 2.5 -discontinue Lovenox - Continue Coumadin - Check INR in a.m. - Valves appear stable on echocardiogram ROYA - Continue home machine GERD - Continue PPI and famotidine -Patient has been partaking in particularly spicy diet and acidic diet lately which probably is exacerbating the symptoms History of asthma - Continue home inhalers - I-S and Acapella DM-2 - Continue SSI -Continue home Farxiga -Hold home injectables - Accu-Cheks as ordered - Carb controlled diet Insomnia - Continue home melatonin Seasonal allergies -continue home loratadine Diabetic neuropathy - Continue home gabapentin Obesity - BMI is 35 - Complicates treatment, prognosis, outcomes -Recommend weight loss DVT prophylaxis Patient is therapeutic on INR CODE STATUS - Full code Charges/Coding Visit Charges Inpatient E&M: 51773 Subs Hosp L2
--- NOTE | 2024-08-13 10:17 | CASEMGMT ---
HARIS PASCUAL NOTE: HARIS PASCUAL to room. Pt resting in bed. Introduced self and role. Pt states she has a POC @ home that her can bring in for her to dc home on. See Green sheet w/instructions for home O2 testing. If pt qualifies for more than 3 L/M @ rest or more than 4 L/M w/exertion, new script to be faxed to [facility]. Samy SMITH RN CM
[2024-08-13] MEDS: Multivitamins,Therapeutic Tablet 1 TABLET PO (11:08)
[2024-08-13] MEDS: Enoxaparin 100 MG/ML Syringe SC (11:08)
[2024-08-13] MEDS: Spironolactone 50 MG Tablet PO (11:08)
[2024-08-13] MEDS: Metoprolol Tartrate 25 MG Tablet PO ×2 (11:08→21:30)
[2024-08-13] MEDS: Furosemide 40 MG/4 ML Vial IV (11:08)
[2024-08-13] MEDS: Gabapentin 300 MG Capsule PO ×2 (11:09→21:30)
[2024-08-13] MEDS: Magnesium Chloride 64 MG Delay Rel.Tablet 128 MG PO (11:09)
[2024-08-13] MEDS: Famotidine 20 MG Tablet PO ×2 (11:09→21:30)
[2024-08-13] MEDS: Pantoprazole Sodium 40 MG Tablet PO ×2 (11:11)
[2024-08-13] MEDS: ACETYLCYSTEINE 600 MG CAPSULE PO ×2 (11:11→21:30)
[2024-08-13] MEDS: 0.9% Saline Lock 10 ML Syringe IV (11:11)
[2024-08-13] MEDS: Loratadine 10 MG Tablet PO (11:11)
[2024-08-13] MEDS: DULoxetine Hcl 60 MG Capsule 120 MG PO (11:11)
[2024-08-13] MEDS: Empagliflozin 25 MG Tablet PO (11:19)
[2024-08-13] MEDS: Azelastine HCl NASAL.SRY 2 SPRAY NASAL ×2 (11:22→21:29)
[2024-08-13] MEDS: Senna/Docusate Sodium 1 Tablet 2 TABLET PO (11:23)
[2024-08-13 12:05] LABS: Bedside Glucose 180 mg/dL (74-106)
[2024-08-13] MEDS: Insulin Lispro 100 UNIT/ML INSULN.PEN SC (12:10)
[2024-08-13 18:31] LABS: Bedside Glucose 90 mg/dL (74-106)
[2024-08-13] MEDS: MELATONIN 10 MG TABLET 5 MG PO (21:30)
[2024-08-13 22:22] LABS: Bedside Glucose 122 mg/dL (74-106)
[2024-08-14] VITALS (9 sets, daily range): BP systolic 96–124; BP diastolic 58–80; PULSE 60–78; RESP 16–18; TEMP 36.3–37.1; O2SAT 95–100; BMI 34.8
[2024-08-14 05:15] LABS: Absolute Lymphocyte Count 1.23 X10^3/uL (0.83-4.51); Absolute Neutrophil Count 3.8 X10^3/uL (2.0-7.7); Basophil# 0.04 X10^3/uL; Basophil% 0.7 % (0-1); Eosinophil# 0.13 X10^3/uL; Eosinophils% 2.1 % (0-5); Hemoglobin 9.8 g/dL (12.0-15.0); Lymphocyte # 1.23 X10^3/ul (0.83-4.51); Lymphocyte % 20.3 % (19-41); Mean Corp Hgb Conc 31.6 g/dL (32-36); Mean Corpuscular Hgb 29.5 pg (27.0-32.0); Mean Corpuscular Volume 93.4 fL (81-99); Mean Platelet Vol. 10.5 fl (6.2-12.0); Monocyte# 0.88 X10^3/uL; Monocyte% 14.5 % (0-10); NRBC Flagged by Analyzer 0 % (0-5); Neutrophil # 3.76 X10^3/uL (2.7-7.7); Neutrophil % 61.9 % (47-70); Platelet Count 247 K/mm3 (150-450); RBC Distribution Width CV 17.3 % (11.6-14.6); RBC Distribution Width SD 59.7 fl (35.1-43.9); Red Blood Count 3.32 M/mm3 (4.2-5.4); White Blood Count 6.1 K/mm3 (4.4-11.0)
[2024-08-14 05:23] LABS: International Normalized Ratio 2.7; Prothrombin Time (Protime)PT. 29.3 SECONDS (11.7-14.9)
[2024-08-14 05:43] LABS: Anion Gap 13 (5-15); BUN 24 mg/dL (4-19); BUN/Creat Ratio 18.7 RATIO (10-20); Calcium,Total 8.8 mg/dL (7.6-11.0); Chloride 97 mmol/L (98-108); Creatinine, Serum 1.26 mg/dL (0.70-1.20); EST Glomerular Filtration Rate 48 (>60); Estimated Creatinine Clearance 56.65 ml/min (50-250); Glucose 107 mg/dL (70-99); Potassium 3.8 mmol/L (3.3-5.1); Sodium Level 139 mmol/L (133-145)
[2024-08-14 06:50] LABS: Bedside Glucose 109 mg/dL (74-106)
[2024-08-14] MEDS: Budesonide Respules 0.5 MG/2 ML AMPUL.NEB. INHALATION (07:25)
[2024-08-14] MEDS: Albuterol 2.5 MG/3 ML VIAL.NEB. INHALATION ×2 (07:25→13:38)
[2024-08-14] MEDS: Pantoprazole Sodium 40 MG Tablet PO (09:50)
[2024-08-14] MEDS: Loratadine 10 MG Tablet PO (09:50)
[2024-08-14] MEDS: DULoxetine Hcl 60 MG Capsule 120 MG PO (09:50)
[2024-08-14] MEDS: Azelastine HCl NASAL.SRY 2 SPRAY NASAL (09:50)
[2024-08-14] MEDS: Metoprolol Tartrate 25 MG Tablet PO (09:51)
[2024-08-14] MEDS: Magnesium Chloride 64 MG Delay Rel.Tablet 128 MG PO (09:51)
[2024-08-14] MEDS: Senna/Docusate Sodium 1 Tablet 2 TABLET PO (09:52)
[2024-08-14] MEDS: Multivitamins,Therapeutic Tablet 1 TABLET PO (09:52)
[2024-08-14] MEDS: Famotidine 20 MG Tablet PO (09:52)
[2024-08-14] MEDS: Sildenafil Citrate 20 MG TABLET PO (09:53)
[2024-08-14] MEDS: Empagliflozin 25 MG Tablet PO (09:53)
[2024-08-14] MEDS: ACETYLCYSTEINE 600 MG CAPSULE PO (09:54)
[2024-08-14] MEDS: Spironolactone 50 MG Tablet PO (09:59)
[2024-08-14] MEDS: Gabapentin 300 MG Capsule PO (09:59)
[2024-08-14] MEDS: Torsemide 20 MG Tablet 40 MG PO (10:00)
[2024-08-14 12:00] LABS: Bedside Glucose 120 mg/dL (74-106)
--- NOTE | 2024-08-14 13:09 | DS.PCM_ITS ---
Providers Date of Admission: 08/12/24 Date of Discharge: 08/14/24 Primary Care Physician: MATHIEU Yates, [employer] Reason For Visit: CHF Diagnosis Discharge Diagnosis (1) Near syncope: Status: Acute Code(s): R55 - Syncope and collapse Medications at Discharge Home Medications multivitamin with folic acid 400 mcg tablet 1 tab PO DAILY SUPPLEMETN 05/30/16 melatonin 5 mg capsule 5 mg PO QHS SLEEP 05/21/20 duloxetine 60 mg capsule,delayed release (Cymbalta) 120 mg PO DAILY Depression 11/08/20 metoprolol tartrate 25 mg tablet 25 mg PO BID HEART #180 tabs 12/11/20 clobetasol 0.05 % topical cream 1 applic topical BID PRN skin irritation 11/05/22 albuterol sulfate 90 mcg/actuation aerosol inhaler (Ventolin HFA) 2 puff inhalation Q4H PRN shortness of breath or wheezing #8.5 grams 01/14/23 budesonide-formoterol HFA 160 mcg-4.5 mcg/actuation aerosol inhaler (Symbicort) 2 puff inhalation BID Wheezing/SOB #10.2 grams 01/14/23 loratadine 10 mg tablet 10 mg PO DAILY ALLERGIES #90 tabs 01/14/23 PEP device #1 ea 05/05/23 acetaminophen 500 mg tablet (Tylenol Extra Strength) 1,000 mg PO DAILY PRN pain 09/08/23 gabapentin 300 mg capsule 300 mg PO BID Neuropathy 09/08/23 azelastine 137 mcg (0.1 %) nasal spray 2 spray intranasal BID asthma #30 mL 11/11/23 semaglutide 0.25 mg or 0.5 mg (2 mg/3 mL) subcutaneous pen injector (Ozempic) 0.5 mg subcut QWEEK DM2 12/15/23 warfarin 5 mg tablet 5 mg PO .COMPLEX blood thinner #180 tabs 02/03/24 Farxiga 10 mg tablet (dapagliflozin propanediol) 10 mg PO QDAY Diabetes #90 tabs 04/26/24 Handicap Placard #1 ea 05/09/24 senna-docusate sodium tablet 2 tab PO DAILY Constipation 05/23/24 acetylcysteine 600 mg capsule (NAC) 600 mg PO BID Priuritus 06/13/24 omeprazole 40 mg capsule,delayed release 40 mg PO QDAY GERD 06/13/24 magnesium oxide 400 mg PO QDAY Supplement 06/14/24 ipratropium 0.5 mg-albuterol 3 mg (2.5 mg base)/3 mL nebulization soln 3 ml inhalation Q4H PRN PRN SOB &/OR WHEEZING #180 mL 06/15/24 sildenafil 25 mg tablet (Viagra) 25 mg PO TID pulmonary htn 07/27/24 spironolactone 50 mg tablet 50 mg PO DAILY #90 tabs 08/04/24 famotidine 20 mg tablet 20 mg PO BID #10 TABLETS 08/07/24 ondansetron 4 mg disintegrating tablet 4 mg PO Q6H PRN PRN Nausea #15 tabs 08/07/24 sildenafil (pulm.hypertension) 20 mg tablet 20 mg PO TID pulmonary HTN 08/12/24 torsemide 20 mg tablet 40 mg PO BID diuretic 08/12/24 Hospital Course Operations None Procedures 2-D Echocardiogram, EKG and - Summary of Care Provided Minutes Spent on Discharge: 37 Hospital Course: Patient is a 64-year-old female with a complicated past medical history to include congenital heart disease with previous mechanical valve replacement for mitral valve and aortic valve on chronic Coumadin and severe pulmonary hypertension who presented to the emergency department at [facility] on 08/12/2024 with weight gain and a presyncopal event. The patient stated she was walking out of a restaurant in the parking lot at which time she felt like her legs became weak and she was going to pass out. She lowered herself to the ground and did not have a syncopal event. Her Lasix had recently been increased to twice a day due to weight gain and the patient reported she had about 4 pounds of additional weight gain since the day prior to presentation. She is on chronic oxygen at 3 L. She was to follow-up with pulmonary hypertension specialist at [facility] however this was not feasible as they do not accept her insurance. She currently follows with Dr. Sparks. Vital signs on presentation showed temperature of 97.8, heart rate 56, respiratory rate 19, blood pressure is 104/59 and patient was satting 96% on her baseline oxygen at 3 L. CBC was unremarkable and compared to her baseline. Her INR was subtherapeutic on presentation at 1.8. Chemistry panel showed baseline CKD stage IIIa. Her initial troponin was 21 with a delta of 18. BNP was 7078. Chest x-ray was essentially unchanged from x-ray on 08/07/2024. She did appear to be in mildly become with heart failure so she was placed on IV diuretics. She is maintained on her baseline oxygen throughout entire hospitalization. Echocardiogram showed stable valves with an EF of 65% and stage I diastolic dysfunction. Right ventricular systolic pressure was markedly elevated at 80 mmHg indicating severe pulmonary hypertension which is fairly consistent with her most recent echocardiogram from February 2024 at which time she had right ventricular systolic pressure of 72 mmHg. She seemed to respond favorably to the diuretics. We did an amatory pulse ox prior to discharge and she was stable on her 3 L [id number]. We did not make any changes in her diuretics at this time with the recent change made as outpatient. I do wonder if her mildly worsening pulmonary hypertension could be the etiology for her presyncopal episodes. We will get an event monitor at discharge to ensure there is no cardiac arrhythmias that are contributing. I have asked her to check with [facility] to see if they will accept her insurance to follow-up with the pulmonary hypertension specialist there. With her INR being subtherapeutic at the time of admission and her having history of mechanical valves she was placed on therapeutic Lovenox. On hospital day 2 her INR was therapeutic at 2.5 and on the day of discharge she was 2.7. She has to follow-up as previously recommended for her INR checks. She was discharged in stable condition on 08/14/2024. Discharge diagnoses: Presyncope Acute on chronic HFpEF Severe pulmonary hypertension Chronic hypoxic respiratory failure History of mechanical aortic and mitral valve Subtherapeutic INR Troponin elevation ROYA GERD History of asthma DM-2 Insomnia Seasonal allergies Diabetic neuropathy Obesity Physical Exam Const alert, oriented x3, no apparent distress, no limitations and well nourished; Negative for average body habitus or healthy appearing Constitutional Narrative: Obese, upper middle-aged, white female, sitting up in bed watching television, appears comfortable, nontoxic, appears chronically ill General Appearance: cooperative, comfortable, well kempt and well developed Exam Limitations: no limitations Nutritional Appearance: morbidly obese HEENT normocephalic, head/scalp atraumatic, hearing grossly normal bilaterally and moist oral mucous membranes HEENT Narrative: Mallampati 3-4, no thrush Eyes EOMs intact bilaterally and conjunctivae normal Eyes Narrative: No scleral icterus Neck supple Neck Narrative: Trachea midline Resp normal respiratory effort, no retractions, no use of accessory muscles and clear to auscultation bilaterally Auscultation: Negative for rales, rhonchi or wheezes Cardio regular rate, regular rhythm, S1 normal heart sound, S2 normal heart sound, no murmurs, no rub, no gallops and no clicks GI normal to inspection, nondistended, normoactive bowel sounds, soft to palpation and non-tender Extremity no clubbing, cyanosis or edema Extremity Narrative: 2+ pedal and radial pulses Skin skin turgor normal, no jaundice, no petechiae and no mottling Neuro oriented x3, moves all extremities and no focal motor deficits Speech: speech normal Psych affect normal Psych Narrative: Eye contact is good, patient interacts appropriately, very pleasant Weight / BMI Weight Weight: 100.9 kg Body Mass Index (BMI) 34.8 ABG / Lab / Microbiology Data 08/14/24 04:29 08/14/24 04:29 Laboratory: Laboratory Results - last 24 hr 08/13/24 17:08: POC Glucose 90 08/13/24 21:21: POC Glucose 122 H 08/14/24 04:29: WBC 6.1, RBC 3.32 L, Hgb 9.8 L, Hct 31.0 L, MCV 93.4, MCH 29.5, MCHC 31.6 L, RDW Std Deviation 59.7 H, RDW Coeff of Ham 17.3 H, Plt Count 247, MPV 10.5, Immature Gran % (Auto) 0.500, Neut % (Auto) 61.9, Lymph % (Auto) 20.3, [place] % (Auto) 14.5 H, Eos % (Auto) 2.1, Baso % (Auto) 0.7, Absolute Neuts (auto) 3.8, Absolute Lymphs (auto) 1.23, Nucleated RBC % 0, PT 29.3 H, INR 2.7, Sodium 139, Potassium 3.8, Chloride 97 L, Carbon Dioxide 29.0, Anion Gap 13, BUN 24 H, Creatinine 1.26 H, Estim Creat Clear Calc 56.65, Est GFR (MDRD) Non-Af 48 L, BUN/Creatinine Ratio 18.7, Glucose 107 H, Calcium 8.8 08/14/24 06:22: POC Glucose 109 H 08/14/24 11:41: POC Glucose 120 H Radiography Diagnostic Testing: Radiology Impression Echocardiogram 08/12/24 16:49 Interpretation Summary Moderate concentric left ventricular hypertrophy. The LV systolic function is normal. EF is 65 %. Stage 1 diastolic dysfunction. There is moderate biatrial dilatation. Prosthetic mitral valve appeared to be functioning normally. Mean peak gradient 4 mmHg which is comparable to previous study from October 2023. Moderate (2+) tricuspid valve insufficiency. Right ventricular systolic pressure estimated to be 80 mmHg. Severe pulmonary hypertension. Mechanical aortic valve mean peak gradient 23 mmHg which is not significantly different from previous study from October 2023. The study was technically difficult. Ordering Physician: Karol Palacios Referring Physician: Marcia Ramesh Performed By: Elsie Tucker RDCS D/C Instructions Discharge Diet: Low fat / Low cholesterol (Limit fluid intake to 2 L or less daily, limit sodium intake to 2 g or less daily) and 1800 Calorie Control Diet Discharge Activity: Return to Normal Activity DC O2, CPAP, BIPAP Needs Home O2 Discharge instructions: Yes Type of respiratory needs?: Oxygen Oxygen frequency: Continuous Continuous oxygen liters per minute: 3 DC home with Oxygen: Yes Home O2 MD Review: I have reviewed the oxygen testing, and the patient qualifies for home oxygen equipment and portability. The patient is mobile in the home and the community. Meaningful Use Info Meaningful Use Meaningful Use Diagnoses (Choose all that apply): None applicable Ischemic Stroke Statin Dosing Therapy Reference: STATIN DOSE THERAPY REFERENCE: * Patients > 75 years receive moderate or high dose statin therapy. * Patients 75 years or YOUNGER should receive HIGH intensity statin dose unless contraindicated. You will be required to document reason for non-treatment if statin daily dose does not meet guidelines. HIGH DOSE STATIN THERAPY DAILY Atorvastatin > than or = to 40 mg Rosuvastatin > than or = to 20 mg Amlodipine + Atorvastatin > than or = to 2.5/40 mg Ezetimibe + Simvastatin 10/80 mg Simvastatin 80mg Discharge Plan Admission Admit Date/Time: 08/12/24 15:55 Primary Reason for Your Visit: Presyncope Attending Provider: Erin Marte Primary Care Provider: Marcia Ramehs [facility] Consulting Providers: Karol Palacios Instructions Additional Instructions / Restrictions: 1. Please investigate pulmonary hypertension specialist at [facility] and see if they will take your insurance. I feel that you would benefit greatly from following with the pulmonary hypertension doctor. 2. Your blood pressure was a bit low and this may be the reason you almost passed out. You do not require any more oxygen. We will have you wear an event monitor to see if you have any cardiac arrhythmias which could be causing the sensation as well. Please follow-up with cardiology in the next 2 weeks. Your other workup was unremarkable. Discharge Orders/Prescriptions Prescriptions: Continued duloxetine [Cymbalta] 60 mg capsule,delayed release(DR/EC) 120 mg PO DAILY metoprolol tartrate 25 mg tablet 25 mg PO BID Qty: 180 3RF acetaminophen [Tylenol Extra Strength] 500 mg tablet 1,000 mg PO DAILY PRN (Reason: pain) albuterol sulfate [Ventolin HFA] 90 mcg/actuation HFA aerosol inhaler 2 puff INHALATION Q4H PRN (Reason: shortness of breath or wheezing) Qty: 8.5 6RF budesonide-formoterol [Symbicort] 160-4.5 mcg/actuation HFA aerosol inhaler 2 puff inhalation BID Qty: 10.2 6RF loratadine 10 mg tablet 10 mg PO DAILY Qty: 90 3RF clobetasol 0.05 % cream 1 applic topical BID PRN (Reason: skin irritation) (DME) PEP device See Rx Instructions .ROUTE .MEDSUPPLY Qty: 1 0RF Rx Instructions: with training Ozempic 0.25 mg or 0.5 mg (2 mg/3 mL) pen injector 0.5 mg subcut QWEEK gabapentin 300 mg capsule 300 mg PO BID dapagliflozin propanediol [Farxiga] 10 mg tablet 10 mg PO QDAY Qty: 90 3RF sildenafil [Viagra] 25 mg tablet 25 mg PO TID acetylcysteine [NAC] 600 mg capsule 600 mg PO BID ipratropium-albuterol 0.5 mg-3 mg(2.5 mg base)/3 mL solution for nebulization 3 ml inhalation Q4H PRN PRN (Reason: SOB &/OR WHEEZING) Qty: 180 6RF multivitamin with folic acid 1 TABLET tablet 1 tab PO DAILY melatonin 5 MG capsule 5 mg PO QHS omeprazole 40 mg capsule,delayed release(DR/EC) 40 mg PO QDAY senna-docusate sodium Tablet 2 tab PO DAILY famotidine 20 mg tablet 20 mg PO BID Qty: 10 0RF ondansetron 4 mg tablet,disintegrating 4 mg PO Q6H PRN PRN (Reason: Nausea) Qty: 15 0RF torsemide 20 mg tablet 40 mg PO BID sildenafil (pulm.hypertension) 20 mg tablet 20 mg PO TID azelastine 137 mcg (0.1 %) spray,non-aerosol 2 spray intranasal BID Qty: 30 3RF Rx Instructions: administer into each nostril warfarin 5 mg tablet 5 mg PO .COMPLEX Qty: 180 3RF Protocol: Dose Management Condition: Thursday Dose/Route: 5 mg Instruction: 1 x 5 mg tablet Condition: Thursday Dose/Route: 5 mg Instruction: 1 x 5 mg tablet Condition: Thursday Dose/Route: 5 mg Instruction: 1 x 5 mg tablet Condition: Thursday Dose/Route: 5 mg Instruction: 1 x 5 mg tablet Condition: Dose/Route: 5 mg Instruction: 1 x 5 mg tablet Condition: Thursday Dose/Route: 5 mg Instruction: 1 x 5 mg tablet Condition: Thursday Dose/Route: 5 mg Instruction: 1 x 5 mg tablet Protocol Text: Adjustment Start Date: Thursday08/03/24 INR Value: 3.5 INR Date: 08/03/24 Recheck Date: 08/24/24 Rx Instructions: 5 mg orally daily: please give extra pills for dose changes, dose changes often; (DME) Handicap Placard See Rx Instructions .Route .MEDSUPPLY Qty: 1 0RF Rx Instructions: Good from 03/09/2024-03/09/2029 magnesium oxide 400 mg magnesium tablet 400 mg PO QDAY spironolactone 50 mg tablet 50 mg PO DAILY Qty: 90 3RF Rx Instructions: Hold for serum potassium more than 5.0 Other Ambulatory Orders: 30 Day Event Recorder Preventi (Urgent) Timeframe: 1 Day Facility: [facility] - Location: Cardiovascular Services Ordered By: Dr. Erin Marte Referrals / Follow Up: Marcia Ramesh, [employer] [Primary Care Provider] - In 1 Week Disposition Disposition (needs filled in before D/C Order can be placed): Home, Self Care Charges/Coding Visit Charges Inpatient E&M: 78799 Disch Hosp >30min
== END 2024-08-14 14:32 | disposition home or self-care (01) | DRG 291 ==
LOC: ED 12:37 → PCU 15:20
PROVIDERS: Physician Assistant; Admitting Provider Internal Medicine; Emergency Provider Emergency Medicine; PCP Nurse Practitioner Family; Visit Provider Internal Medicine
DX: I13.0 Hypertensive heart and chronic kidney disease with heart failure and stage 1 through stage 4 chronic kidney disease, or unspecified chronic kidney disease (principal); I50.33 Acute on chronic diastolic (congestive) heart failure; J96.11 Chronic respiratory failure with hypoxia; I27.20 Pulmonary hypertension, unspecified; Z79.01 Long term (current) use of anticoagulants; E11.22 Type 2 diabetes mellitus with diabetic chronic kidney disease; I48.0 Paroxysmal atrial fibrillation; R55 Syncope and collapse; J44.9 Chronic obstructive pulmonary disease, unspecified; N18.31 Chronic kidney disease, stage 3a; F32.A Depression, unspecified; Z68.35 Body mass index [BMI] 35.0-35.9, adult; Z95.2 Presence of prosthetic heart valve; G47.33 Obstructive sleep apnea (adult) (pediatric); E11.40 Type 2 diabetes mellitus with diabetic neuropathy, unspecified; Z79.4 Long term (current) use of insulin; E78.5 Hyperlipidemia, unspecified; K21.9 Gastro-esophageal reflux disease without esophagitis; F41.9 Anxiety disorder, unspecified; J30.2 Other seasonal allergic rhinitis; G47.00 Insomnia, unspecified; Z79.84 Long term (current) use of oral hypoglycemic drugs; Z79.85 Long-term (current) use of injectable non-insulin antidiabetic drugs; R79.89 Other specified abnormal findings of blood chemistry; Z79.51 Long term (current) use of inhaled steroids; Z99.89 Dependence on other enabling machines and devices; Z85.89 Personal history of malignant neoplasm of other organs and systems; Z79.899 Other long term (current) drug therapy; Z90.722 Acquired absence of ovaries, bilateral; Z90.710 Acquired absence of both cervix and uterus; Z98.51 Tubal ligation status; E66.9 Obesity, unspecified; Z99.81 Dependence on supplemental oxygen
CPT/HCPCS: 36415; 71046; 80048; 81001; 82962; 83880; 84484; 85025; 85610; 93005; 93306; 94640; 99285; Q9957; A4216; C8929; J1940

== ENCOUNTER 2024-08-17 10:00 | Outpatient (RCR) | payer OTHER, SELFPAY ==
[2024-08-04 08:56] VITALS: BMI 31.9
--- NOTE | 2024-08-16 11:12 | PCM.PN.BLA ---
Progress Note Call placed to [facility] to clarify the authorization received for 5 units of Pulmonary rehab. Spoke with Naya Alcaraz at [facility] who stated Dr. Sparks, the ordering provider requested authorization for 6 visits, and 5 visits are approved. This information is available in the provider portal. Auth scanned in to patient EMR.
--- NOTE | 2024-09-01 07:38 | PCM.PR.TP ---
Exercise - Initial Assessment Visit Session Number:: 2 Physician Prescribed Exercise Modalities: Robotic Wares Stepper, Robotic Wares Pro-II Ergometer and Robotic Wares Lateral Ladd Current METSs:: 2.5 Target HR:: 119 (95-119) Target RPE 12-16:: 11-13 Current RPD:: 2-3 Maximum Exercise HR:: 83 Resting Blood Pressure: 122/66 Maximum Exercise Blood Pressure: 102/56 Minimum SpO2 with exercise: 93 (on 3L of O2) EKG Type: NSR Nutrition/Wt Mgmt - Initial Visit Session Number:: 2 Weight Management Admit Height:: 5 ft 7 in Admit Weight:: 204 lb Admit BMI:: 31.9 Nutrition/Wt Mgmt - 30-Day Visit Date of Eval: 09/01/24 Session Number:: 2 Weight Management Height: 5 ft 7 in Weight:: 204 lb BMI: 31.9 Weight Goals Progress:: Not progressing Nutrition/Wt Mgmt - 60-Day Visit Session Number:: 2 Weight Management Height: 5 ft 7 in Weight:: 204 lb BMI: 31.9 Nutrition/Wt Mgmt - 90-Day Visit Session Number:: 2 Weight Management Height: 5 ft 7 in Weight:: 204 lb BMI: 31.9 Nutrition/Wt Mgmt - Final Visit Session Number:: 2 Weight Management Height: 5 ft 7 in Weight:: 204 lb BMI: 31.9 Psychosocial - Initial Assess Visit Session Number:: 2 Problems/Goals History of Emotional Disorders: None Psychosocial Goals: 1. Patient is free from overwhelming symtoms of depression (or anxiety, 2. Identifies personal stressors & states the strategies for managing, 3. Identifies activities to decrease isolation and/or symptoms of, 4. Improved psychosocial coping skills., 5. Verbalizes coping strategies., 6. Adequate treatment of depression. and 7. Improved Q.O.L. Psychosocial Test Tool Used:: Pulmonary QOL and PHQ-9 Questionnaire PHQ-9 Score: 9 Referral to Behavioral Health PS - Interventions: Yes: Attend Stress Management Classes Intervention/Plan: See List Interventions/Plan:: Assess stressors,coping strategies & signs of derpression on admission, Instruct/assist pt to develop coping & personal stress Mgt strategies, Refer to Behavioral Health if appropriate, Refer to Physician if appropriate, Instruct patient to recognize signs & symptoms of depression, Instruct patient to recog and Other additional plan/intervention Comments:: Pt denies any psychosocial issues at this time. Psychosocial - 30-Day Visit Date of Eval: 09/01/24 Session Number:: 2 Problems/Goals History of Emotional Disorders: None Psychosocial Goals: 1. Patient is free from overwhelming symtoms of depression (or anxiety, 2. Identifies personal stressors & states the strategies for managing, 3. Identifies activities to decrease isolation and/or symptoms of, 4. Improved psychosocial coping skills., 5. Verbalizes coping strategies., 6. Adequate treatment of depression. and 7. Improved Q.O.L. Psychosocial Test Tool Used:: Pulmonary QOL and PHQ-9 Questionnaire PHQ-9 Score: 9 Referral to Behavioral [facility] PS - Interventions: Yes: Attend Stress Management Classes Plan Interventions/Plan:: Assess stressors,coping strategies & signs of derpression on admission, Instruct/assist pt to develop coping & personal stress Mgt strategies, Refer to Behavioral Health if appropriate, Refer to Physician if appropriate, Instruct patient to recognize signs & symptoms of depression, Instruct patient to recog and Other additional plan/intervention Comments:: Pt denies any psychosocial issues at this time. Psychosocial - 60-Day Visit Session Number:: 2 Problems/Goals History of Emotional Disorders: None Psychosocial Goals: 1. Patient is free from overwhelming symtoms of depression (or anxiety, 2. Identifies personal stressors & states the strategies for managing, 3. Identifies activities to decrease isolation and/or symptoms of, 4. Improved psychosocial coping skills., 5. Verbalizes coping strategies., 6. Adequate treatment of depression. and 7. Improved Q.O.L. Psychosocial Test Tool Used:: Pulmonary QOL and PHQ-9 Questionnaire PHQ-9 Score: 9 Referral to Behavioral Health PS - Interventions: Yes: Attend Stress Management Classes Plan Interventions/Plan:: Assess stressors,coping strategies & signs of derpression on admission, Instruct/assist pt to develop coping & personal stress Mgt strategies, Refer to Behavioral Health if appropriate, Refer to Physician if appropriate, Instruct patient to recognize signs & symptoms of depression, Instruct patient to recog and Other additional plan/intervention Comments:: Pt denies any psychosocial issues at this time. Psychosocial - 90-Day Visit Session Number:: 2 Problems/Goals History of Emotional Disorders: None Psychosocial Goals: 1. Patient is free from overwhelming symtoms of depression (or anxiety, 2. Identifies personal stressors & states the strategies for managing, 3. Identifies activities to decrease isolation and/or symptoms of, 4. Improved psychosocial coping skills., 5. Verbalizes coping strategies., 6. Adequate treatment of depression. and 7. Improved Q.O.L. Psychosocial Test Tool Used:: Pulmonary QOL and PHQ-9 Questionnaire PHQ-9 Score: 9 Referral to Behavioral Health PS - Interventions: Yes: Attend Stress Management Classes Plan Interventions/Plan:: Assess stressors,coping strategies & signs of derpression on admission, Instruct/assist pt to develop coping & personal stress Mgt strategies, Refer to Behavioral Health if appropriate, Refer to Physician if appropriate, Instruct patient to recognize signs & symptoms of depression, Instruct patient to recog and Other additional plan/intervention Comments:: Pt denies any psychosocial issues at this time. Psychosocial - Final Assess Visit Session Number:: 2 Problems/Goals History of Emotional Disorders: None Psychosocial Goals: 1. Patient is free from overwhelming symtoms of depression (or anxiety, 2. Identifies personal stressors & states the strategies for managing, 3. Identifies activities to decrease isolation and/or symptoms of, 4. Improved psychosocial coping skills., 5. Verbalizes coping strategies., 6. Adequate treatment of depression. and 7. Improved Q.O.L. Psychosocial Test Tool Used:: Pulmonary QOL and PHQ-9 Questionnaire PHQ-9 Score: 9 Referral to Behavioral Health PS - Interventions: Yes: Attend Stress Management Classes Plan Interventions/Plan:: Assess stressors,coping strategies & signs of derpression on admission, Instruct/assist pt to develop coping & personal stress Mgt strategies, Refer to Behavioral Health if appropriate, Refer to Physician if appropriate, Instruct patient to recognize signs & symptoms of depression, Instruct patient to recog and Other additional plan/intervention Comments:: Pt denies any psychosocial issues at this time. Oxygen & Oxygen Titration Init Visit Session Number:: 2 Initial Assessment SpO2:: 93 (on 3L of O2) Oxygen & Oxygen Titration 30D Visit Date of Eval: 09/01/24 Session Number:: 2 Reassessment Reassessment- 30 Days: Demonstrate knowledge of O2 Rx at rest & w/exercise, Using O2 as Rx'd, Has home O2 as Rx'd and Uses port O2 as Rx'd SpO2:: 93 (on 3L of O2) Oxygen & Oxygen Titration 60D Visit Date of Eval: 09/01/24 Session Number:: 2 Reassessment SpO2:: 93 (on 3L of O2) Oxygen & Oxygen Titration 90D Visit Date of Eval: 09/01/24 Session Number:: 2 Reassessment SpO2:: 93 (on 3L of O2) Oxygen & Oxygen Titration JUANJOSE Visit Date of Eval: 09/01/24 Session Number:: 2 Reassessment SpO2:: 93 (on 3L of O2) Core Components - Initial Visit Session Number:: 2 Hypertension Hypertension Diagnosis:: Hypertension ICD-10 I10 BP: 122/66 [place] [employer] Hypertension Guidelines Blood Pressure: 102/56 Outcomes/Goals: Able to verbalize/achieve optimal blood pressure <130/80, Incorporates diet changes & exercise for blood pressure control by DC and Other additional outcomes/goals Tobacco - Initial Assessment Tobacco Program Goals Tobacco Use: Non-smoker Diabetes Diabetes:: Yes Insulin: No Core Components - 30 DAYS Visit Date of Eval: 09/01/24 Session Number:: 2 Hypertension Hypertension Diagnosis:: Hypertension ICD-10 I10 Resting Blood Pressure:: 122/66 [place] [employer] Hypertension Guidelines Peak Exercise Blood Pressure:: 102/56 Change in medication: No Outcomes/Goals: Able to verbalize/achieve optimal blood pressure <130/80, Incorporates diet changes & exercise for blood pressure control by DC and Other additional outcomes/goals Interventions/plan: Instruct on optimal blood pressure, hypertension & medications, Instruct on effects of sodium, alcohol, stress, exercise &hypertension and Other additional plan/interventions 30 day Reassessments:: Not Met Tobacco - 30-Day Tobacco Program Goals Tobacco Use: Non-smoker Exacerbation Mgmt & Airway Clearance Reassessment: Demonstrates knowledge of O2 Rx at rest, Demonstrates knowledge of O2 Rx with exercise, Using O2 as prescribed, Has home O2 as prescribed and Uses port O2 as prescribed Medication Medication list reviewed:: Yes Diabetes Diabetes:: Yes Insulin dependent injection/pump?: No Non-Insulin Dependent?: Yes Refer to Nutritional Services: Medical Nutrition Therapy Core Components - 60 DAYS Visit Session Number:: 2 Hypertension Hypertension Diagnosis:: Hypertension ICD-10 I10 Resting Blood Pressure:: 122/66 [place] [employer] Hypertension Guidelines Peak Exercise Blood Pressure:: 102/56 Change in medication: No Outcomes/Goals: Able to verbalize/achieve optimal blood pressure <130/80, Incorporates diet changes & exercise for blood pressure control by DC and Other additional outcomes/goals Interventions/plan: Instruct on optimal blood pressure, hypertension & medications, Instruct on effects of sodium, alcohol, stress, exercise &hypertension and Other additional plan/interventions 60 day Reassessments:: Not Met Tobacco - 60-Day Tobacco Program Goals Tobacco Use: Non-smoker Exacerbation Mgmt & Airway Clearance Reassessment: Demonstrates knowledge of O2 Rx at rest, Demonstrates knowledge of O2 Rx with exercise, Using O2 as prescribed, Has home O2 as prescribed and Uses port O2 as prescribed Diabetes Diabetes:: Yes Insulin dependent injection/pump?: No Non-Insulin Dependent?: Yes Refer to Nutritional Services: Medical Nutrition Therapy Core Components - 90 DAYS Visit Session Number:: 2 Hypertension Hypertension Diagnosis:: Hypertension ICD-10 I10 Resting Blood Pressure:: 122/66 [place] [employer] Hypertension Guidelines Peak Exercise Blood Pressure:: 102/56 Outcomes/Goals: Able to verbalize/achieve optimal blood pressure <130/80, Incorporates diet changes & exercise for blood pressure control by DC and Other additional outcomes/goals Interventions/plan: Instruct on optimal blood pressure, hypertension & medications, Instruct on effects of sodium, alcohol, stress, exercise &hypertension and Other additional plan/interventions 90 day Reassessments:: Not Met Tobacco - 90-Day Tobacco Program Goals Tobacco Use: Non-smoker Diabetes Diabetes:: Yes Insulin dependent injection/pump?: No Non-Insulin Dependent?: Yes Refer to Nutritional Services: Medical Nutrition Therapy Core Components - Final Visit Session Number:: 2 Hypertension Hypertension Diagnosis:: Hypertension ICD-10 I10 Resting Blood Pressure:: 122/66 [place] [employer] Hypertension Guidelines Peak Exercise Blood Pressure:: 102/56 Outcomes/Goals: Able to verbalize/achieve optimal blood pressure <130/80, Incorporates diet changes & exercise for blood pressure control by DC and Other additional outcomes/goals Tobacco - Final Tobacco Program Goals Tobacco Use: Non-smoker Diabetes Diabetes:: Yes Insulin dependent injection/pump?: No Non-Insulin Dependent?: Yes Refer to Nutritional Services: Medical Nutrition Therapy Patient Health Questionnaire PHQ-9 Screening 30-Day Re-eval Assessment: 1. Little interest or pleasure in doing things: Not at all 2. Feeling down, depressed, or hopeless: Not at all 3. Trouble falling or staying asleep, or sleeping too much: More than half the days 4. Feeling tired or having little energy: Nearly every day 5. Poor appetite or overeating: Several days 6. Feeling bad about yourself -- or that you are a failure or have let yourself or your family down: Not at all 7. Trouble concentrating on things, such as reading the newspaper or watching television: Several days 8. Moving or speaking so slowly that other people could have noticed. Or the opposite - being so fidgety or restless that you have been moving around a lot more than usual: Several days 9. Thoughts that you would be better off , or of hurting yourself in some way: Not at all Total Score: 8 Knowledge Questionaire (BCKQ) Information Information: [place] COPD Knowledge Questionnaire (BCKQ) This questionnaire is designed to find out what you know about your lung problem. It should be completed without help form anyone else. This usually takes between 10 and 20 minutes. Your answers will help us to find out what information you need to help you to understand and manage your lung condition. [place] the [place] which you think is the correct answer. Self-Efficacy 6-Item Scale 30-Day Re-eval Assessment: We would like to know how confident you are in doing certain activities. Please select your confidence level for: Fatigue Select Number: 4 Physical Discomfort or Pain Select Number: 8 Emotional Distress Select Number: 9 Other Symptoms or Health Problems Select Number: 4 Different Tasks and Activities Select Number: 4 Medication Select Number: 7 Total Score:: 6 Nutrition Survey Nutrition Survey Instructions Scoring Instructions
[2024-09-01 07:47] VITALS: BP 102/56; BP 122/66; O2SAT 93; BMI 31.9
== END 2024-09-03 23:59 ==
LOC: PR 10:00
PROVIDERS: PCP Nurse Practitioner Family; Referring Provider Internal Medicine Pulmonary Disease; Visit Provider Internal Medicine Pulmonary Disease
DX: I27.20 Pulmonary hypertension, unspecified (principal)
CPT/HCPCS: 97150; G0239

== ENCOUNTER 2024-08-26 12:38 | Outpatient (RCR) | payer OTHER, SELFPAY ==
[2024-08-03 22:22] VITALS: BMI 39.5
[2024-08-04 08:56] VITALS: BMI 31.9
[2024-08-23 12:21] LABS: BUN 24 mg/dL (4-19); BUN/Creat Ratio 18.2 RATIO (10-20); Calcium,Total 9.2 mg/dL (7.6-11.0); Carbon Dioxide 31.6 mmol/L (21.0-32.0); Creatinine, Serum 1.33 mg/dL (0.70-1.20); EST Glomerular Filtration Rate 45 (>60); Glucose 92 mg/dL (70-99)
[2024-08-23 12:41] LABS: Anion Gap 12 (5-15); Chloride 94 mmol/L (98-108); Potassium 3.2 mmol/L (3.3-5.1); Sodium Level 138 mmol/L (133-145)
[2024-08-23 12:47] LABS: Prothrombin Time (Protime)PT. 42.4 SECONDS (11.7-14.9)
[2024-08-23 13:23] LABS: International Normalized Ratio 4.3
[2024-08-26 13:51] LABS: International Normalized Ratio 3.6
[2024-08-26 13:51] LABS: Anion Gap 12 (5-15); BUN 26 mg/dL (4-19); BUN/Creat Ratio 17.1 RATIO (10-20); Calcium,Total 9.3 mg/dL (7.6-11.0); Carbon Dioxide 32.2 mmol/L (21.0-32.0); Chloride 94 mmol/L (98-108); Creatinine, Serum 1.54 mg/dL (0.70-1.20); EST Glomerular Filtration Rate 38 (>60); Glucose 112 mg/dL (70-99); Potassium 4.3 mmol/L (3.3-5.1); Sodium Level 138 mmol/L (133-145)
== END 2024-08-26 18:00 | disposition home or self-care (01) ==
LOC: LAB 12:38
PROVIDERS: Physician Assistant Medical; PCP Nurse Practitioner Family; Referring Provider Nurse Practitioner Family; Visit Provider Internal Medicine Cardiovascular Disease
DX: Z95.2 Presence of prosthetic heart valve (principal); Z79.01 Long term (current) use of anticoagulants; I48.0 Paroxysmal atrial fibrillation; I50.32 Chronic diastolic (congestive) heart failure; I44.7 Left bundle-branch block, unspecified; E78.00 Pure hypercholesterolemia, unspecified; I11.0 Hypertensive heart disease with heart failure; E87.6 Hypokalemia; Z79.899 Other long term (current) drug therapy; Z51.81 Encounter for therapeutic drug level monitoring
CPT/HCPCS: 36415; 80048; 85610

== ENCOUNTER → 2024-08-30 | Outpatient (CLI) | payer OTHER, SELFPAY ==
[2024-08-04 08:56] VITALS: BMI 31.9
[2024-08-30 13:14] LABS: Anion Gap 12 (5-15); BUN 31 mg/dL (4-19); BUN/Creat Ratio 20.7 RATIO (10-20); Calcium,Total 9.1 mg/dL (7.6-11.0); Carbon Dioxide 28.6 mmol/L (21.0-32.0); Chloride 94 mmol/L (98-108); EST Glomerular Filtration Rate 39 (>60); Glucose 147 mg/dL (70-99); Potassium 4.2 mmol/L (3.3-5.1); Sodium Level 135 mmol/L (133-145)
== END | disposition home or self-care (01) ==
LOC: VSLAB 08:35
PROVIDERS: PCP Nurse Practitioner Family
DX: E11.65 Type 2 diabetes mellitus with hyperglycemia (principal)
CPT/HCPCS: 36415; 80048; 82043

== ENCOUNTER 2024-09-07 10:48 | Outpatient (RCR) | payer OTHER, SELFPAY ==
[2024-09-01 07:47] VITALS: BMI 31.9
[2024-09-04 04:48] VITALS: BMI 39.5
[2024-09-07 11:44] LABS: International Normalized Ratio 3.2; Prothrombin Time (Protime)PT. 33.8 SECONDS (11.7-14.9)
[2024-09-07 11:49] LABS: AST(SGOT) 36 U/L (<=31); Alanine Aminotransfer ALT/SGPT 15 U/L (<=34); Alkaline Phosphatase 82 U/L (35-104); Bilirubin, Direct 0.47 mg/dL (0.00-0.30); Cholesterol 217 mg/dL (<=200); Globulin 4.6 g/dL (2.2-4.2); High Density Lipoprotein 37 mg/dL; Low Density Lipoprotein Calc. 157 mg/dL; Protein, Total 8.6 g/dL (5.9-8.4); Total Bilirubin 0.95 mg/dL (0.00-1.30); Triglycerides 115 mg/dL; Very Low Density Lipoprotein 23 mg/dL (5-40); cholesterol:hdl ratio screen 5.93
[2024-09-08 12:23] LABS: Anion Gap 17 (5-15); BUN 39 mg/dL (4-19); BUN/Creat Ratio 23.3 RATIO (10-20); Calcium,Total 9.1 mg/dL (7.6-11.0); Carbon Dioxide 25.6 mmol/L (21.0-32.0); Chloride 90 mmol/L (98-108); Creatinine, Serum 1.66 mg/dL (0.70-1.20); EST Glomerular Filtration Rate 35 (>60); Glucose 129 mg/dL (70-99); Potassium 4.4 mmol/L (3.3-5.1); Sodium Level 132 mmol/L (133-145)
== END 2024-09-07 18:00 | disposition home or self-care (01) ==
LOC: LAB 10:48
PROVIDERS: Nurse Practitioner Family; Physician Assistant Medical; Referring Provider Internal Medicine Cardiovascular Disease; Visit Provider Internal Medicine Cardiovascular Disease
DX: Z95.2 Presence of prosthetic heart valve (principal); Z79.01 Long term (current) use of anticoagulants; I48.0 Paroxysmal atrial fibrillation; E66.01 Morbid (severe) obesity due to excess calories; Z68.38 Body mass index [BMI] 38.0-38.9, adult; E78.00 Pure hypercholesterolemia, unspecified; Z79.899 Other long term (current) drug therapy; Z51.81 Encounter for therapeutic drug level monitoring; R06.02 Shortness of breath
CPT/HCPCS: 80048; 80061; 80076; 85610

== ENCOUNTER 2024-09-15 07:28 | Emergency (ER) | payer OTHER, SELFPAY ==
[2024-09-01 07:47] VITALS: BMI 31.9
[2024-09-15] VITALS (8 sets, daily range): BP systolic 105–122; BP diastolic 55–90; PULSE 60–75; RESP 14–24; TEMP 36.5–36.6; O2SAT 96–100; BMI 31.0
[2024-09-15 08:02] LABS: Absolute Lymphocyte Count 1.45 X10^3/uL (0.83-4.51); Absolute Neutrophil Count 3.5 X10^3/uL (2.0-7.7); Basophil# 0.05 X10^3/uL; Basophil% 0.8 % (0-1); Eosinophil# 0.17 X10^3/uL; Eosinophils% 2.8 % (0-5); Hematocrit 40.6 % (37-47); Hemoglobin 13.3 g/dL (12.0-15.0); Lymphocyte # 1.45 X10^3/ul (0.83-4.51); Lymphocyte % 24.1 % (19-41); Mean Corp Hgb Conc 32.8 g/dL (32-36); Mean Corpuscular Hgb 28.9 pg (27.0-32.0); Mean Corpuscular Volume 88.3 fL (81-99); Monocyte# 0.82 X10^3/uL; Monocyte% 13.6 % (0-10); NRBC Flagged by Analyzer 0 % (0-5); Neutrophil # 3.49 X10^3/uL (2.7-7.7); Neutrophil % 58.2 % (47-70); Platelet Count 284 K/mm3 (150-450); RBC Distribution Width CV 14.9 % (11.6-14.6); RBC Distribution Width SD 48.1 fl (35.1-43.9)
--- NOTE | 2024-09-15 08:11 | ED.VIS.CHEST ---
HPI History of Present Illness Chief Complaint: Chest Pain Informant: patient Onset/Context/Timing Onset: Today and Yesterday Activity at onset: sudden Timing: Intermittent Quality: Positive for Dull Location: Right Chest Current Severity: Gone Maximum Severity: Mild Worsened By: Nothing Relieved By: Nothing Associated Symptoms: Negative for Nausea, Vomiting, Diaphoresis, Cough, Fever, Lightheadedness, Acid Reflux or Palpitations Narrative Narrative: 64-year-old female history of pulmonary hypertension to artificial heart valves for which she is on Coumadin and diabetes. No history of PA or coronary disease. She is having atypical right-sided chest pain the last 2 days it comes and goes. States it feels like someone punches the right side of her chest. It is nonexertional. She has no known coronary disease. She denies any leg pain or swelling. No hemoptysis. The pain is not pleuritic. She has never had a DVT or PE. She does not remember injuring her chest wall. Prior Similar Symptoms: No Recent Illness/Hospitalization: Yes CVD Risk Factors: Positive for Diabetes PE Risk Factors: Negative for Recent Travel/Surgery, Recent Immobilization, Prior DVT or PE, Cancer or OCP + Smoking + >/=35 TAD Risk Factors: Negative for Marfan's Syndrome [facility] Medical History Hypokalemia Near syncope Anemia Abnormal biliary HIDA scan COVID-19 (03/15/24) Cutaneous abscess Wears glasses Wears dentures On home oxygen therapy Cancer Anxiety Hypertension CPAP (continuous positive airway pressure) dependence Positive GBS test Endometrial cancer Secondary pulmonary arterial hypertension Nonrheumatic aortic (valve) stenosis with insufficiency Congenital subaortic stenosis of membranous type Essential (primary) hypertension Narcolepsy Allergic rhinitis Obesity Streptococcal septicemia History of bacterial endocarditis Nonrheumatic mitral valve insufficiency Chronic diastolic (congestive) heart failure Left bundle branch block Asthma HLD (hyperlipidemia) Subvalvar aortic stenosis Obstructive sleep apnea Psoriasis Morbid obesity Home Medications ?Medication ?Instructions ?Recorded ?Last Taken ?Type multivitamin with folic acid 400 1 tab PO DAILY SUPPLEMETN 05/30/16 08/11/24 23:00 History mcg tablet 1 TAB melatonin 5 mg capsule 5 mg PO QHS SLEEP 05/21/20 08/11/24 23:00 History 5 mg duloxetine 60 mg capsule,delayed 120 mg PO DAILY Depression 11/08/20 08/12/24 08:00 History release (Cymbalta) 120 mg clobetasol 0.05 % topical cream 1 applic topical BID PRN skin 11/05/22 02/01/24 History irritation albuterol sulfate 90 mcg/actuation 2 puff inhalation Q4H PRN 01/14/23 05/20/24 Rx aerosol inhaler (Ventolin HFA) shortness of breath or wheezing #8.5 grams budesonide-formoterol HFA 160 2 puff inhalation BID Wheezing/SOB 01/14/23 05/22/24 Rx mcg-4.5 mcg/actuation aerosol #10.2 grams inhaler (Symbicort) loratadine 10 mg tablet 10 mg PO DAILY ALLERGIES #90 tabs 01/14/23 05/22/24 Rx PEP device #1 ea 05/05/23 Unknown Rx acetaminophen 500 mg tablet 1,000 mg PO DAILY PRN pain 09/08/23 05/23/24 10:02 History (Tylenol Extra Strength) gabapentin 300 mg capsule 300 mg PO BID Neuropathy 09/08/23 08/12/24 08:00 History 300 mg azelastine 137 mcg (0.1 %) nasal 2 spray intranasal BID asthma #30 11/11/23 05/22/24 Rx spray mL semaglutide 0.25 mg or 0.5 mg (2 0.5 mg subcut QWEEK DM2 12/15/23 08/05/24 08:00 History mg/3 mL) subcutaneous pen injector 0.5 mg (Ozempic) warfarin 5 mg tablet 5 mg PO .COMPLEX blood thinner 02/03/24 08/11/24 23:00 Rx #180 tabs 5 mg Farxiga 10 mg tablet 10 mg PO QDAY Diabetes #90 tabs 04/26/24 08/12/24 08:00 Rx (dapagliflozin propanediol) 10 mg Handicap Placard #1 ea 05/09/24 Unknown Rx senna-docusate sodium tablet 2 tab PO DAILY Constipation 05/23/24 05/23/24 History acetylcysteine 600 mg capsule (NAC) 600 mg PO BID Priuritus 06/13/24 08/12/24 08:00 History 600 mg omeprazole 40 mg capsule,delayed 40 mg PO QDAY GERD 06/13/24 08/12/24 08:00 History release 40 mg magnesium oxide 400 mg PO QDAY Supplement 06/14/24 08/11/24 23:00 History 400 mg ipratropium 0.5 mg-albuterol 3 mg 3 ml inhalation Q4H PRN PRN SOB 06/15/24 Unknown Rx (2.5 mg base)/3 mL nebulization &/OR WHEEZING #180 mL soln sildenafil 25 mg tablet (Viagra) 25 mg PO TID pulmonary htn 07/27/24 Unknown History famotidine 20 mg tablet 20 mg PO BID #10 TABLETS 08/07/24 08/11/24 23:00 Rx 20 mg ondansetron 4 mg disintegrating 4 mg PO Q6H PRN PRN Nausea #15 tabs 08/07/24 08/11/24 23:00 Rx tablet 4 mg sildenafil (pulm.hypertension) 20 20 mg PO TID pulmonary HTN 08/12/24 08/12/24 08:00 History mg tablet 20 mg torsemide 20 mg tablet 40 mg PO BID diuretic 08/12/24 08/12/24 08:00 History 40 mg spironolactone 100 mg tablet 100 mg PO DAILY #180 tabs 08/15/24 Unknown Rx potassium chloride 10 mEq 10 meq PO DAILY #90 caps 08/23/24 Unknown Rx capsule,extended release metoprolol tartrate 25 mg tablet 25 mg PO BID HEART #180 tabs 09/05/24 Unknown Rx Allergy/AdvReac Type Severity Reaction Status Date / Time clarithromycin (From Biaxin) Allergy Severe SOB, hives Verified 09/15/24 07:29 and swelling cephalexin (Cephalexin) Allergy Rash Verified 09/15/24 07:29 simvastatin Allergy Rash Verified 09/15/24 07:29 sulfamethoxazole Allergy Rash Verified 09/15/24 07:29 trimethoprim Allergy Rash/leg Verified 09/15/24 07:29 swelling bupropion AdvReac Severe worsened Verified 09/15/24 07:29 depression adhesive tape AdvReac Itching Verified 09/15/24 07:29 ciprofloxacin AdvReac Itching Verified 09/15/24 07:29 Macrolide Antibiotics AdvReac Unknown Verified 09/15/24 07:29 Penicillins AdvReac Unknown Verified 09/15/24 07:29 Family History Father CAD (coronary artery disease) Hypertension Mother , age 55 Sudden cardiac Hypertension Abdominal aortic aneurysm rupture Brother Hypertension Sister Hypertension Surgical History History of right heart catheterization (02/19/24) H/O bilateral salpingo-oophorectomy (01/2020) History of robot-assisted laparoscopic hysterectomy (01/2020) Resection of subaortic membrane (2002) History of tubal ligation HX venous access device placed History of mechanical aortic valve replacement (05/13/16) History of mitral valve replacement with mechanical valve (05/13/16) Social History household members: spouse number of children: 4 current occupational status: unemployed history of recent travel: No sexually active: Yes Smoking Status: Never smoker alcohol intake: never substance use type: does not use diet: low carbohydrate caffeine: No what type of physical activity do you participate in: walking seatbelt use: always do you feel safe at home: Yes additional social history: - Dylan DAIGLE ROS ED ROS Narrative Atypical right-sided intermittent chest pain. No recent illness. Constitutional Constitutional ED: Denies chills or fever(s) Eyes Eyes: Reports none ENT ENT ED: Denies ear pain Cardiovascular Cardiovascular: Reports as per HPI and chest pain; Denies palpitations or racing heartbeat Respiratory/Chest Respiratory/Chest: Denies cough or dyspnea Gastrointestinal Gastrointestinal: Denies abdominal pain, diarrhea, melena, nausea or vomiting Genitourinary Genitourinary ED: Denies dysuria or hematuria Musculoskeletal Musculoskeletal: Denies arthralgias Integumentary Denies abscess Neurologic Neurologic: Denies headache(s) Psychiatric Psychiatric: Denies anxiety Endocrine Endocrinology: Denies cold intolerance Hematologic/Lymphatic Hematologic/Lymphatic: Denies easy bleeding or easy bruising Allergic/Immunologic Allergic/Immunologic ED: Denies mouth swelling or tongue swelling EXAM Physical Exam Narrative Exam Narrative: 62-year-old female sitting upright in bed. Vital signs are stable afebrile. No distress. Pulse ox 98% on room air no hypoxia. H EENT exam pupils round react light. Extra motions are intact. Moist [place] membranes. No facial droop. No trauma. Neck nontender no JVD. Lungs clear to auscultation bilaterally. Heart A-fib with rate about 75. She does have a click of artificial heart valves. Chest wall she has reproducible tenderness over her right chest wall. There is no ecchymosis or bruising. No signs of trauma. No redness or warmth. No crepitance. Is normal in appearance. She has had a prior sternotomy is well-healed. Left chest wall is nontender. When I push on her right chest and cause the pain she said that is the pain that she came in to be evaluated for. Abdomen is soft and nontender. Normal bowel sounds without peritoneal signs. Moving all 4 extremities. 5/5 director of marketing strength. Equal symmetrical radial pulses. Normal dorsi plantarflexion. Lower extremities are nontender. No swelling. No calf tenderness or cords. Back nontender. Neurologically she is awake and alert. Answering questions following commands. No focal motor deficits. Const Vital Signs: 09/15/24 07:29 09/15/24 07:50 09/15/24 08:03 Temperature 97.7 F L Temperature Source Oral Pulse Rate 75 Respiratory Rate 24 H Blood Pressure 105/90 H Blood Pressure Mean 95 Pulse Ox 98 100 96 Oxygen Delivery Method Room Air Room Air Nasal Cannula Oxygen Flow Rate (L/min) 3 09/15/24 08:28 09/15/24 10:00 09/15/24 11:00 Temperature Temperature Source Pulse Rate 60 61 61 Respiratory Rate 18 16 14 Blood Pressure 115/55 L 122/56 H 112/61 Blood Pressure Mean 75 78 78 Pulse Ox 99 99 99 Oxygen Delivery Method Room Air Nasal Cannula Nasal Cannula Oxygen Flow Rate (L/min) 3 3 09/15/24 12:00 Temperature Temperature Source Pulse Rate 62 Respiratory Rate 15 Blood Pressure 121/69 H Blood Pressure Mean 86 Pulse Ox 98 Oxygen Delivery Method Nasal Cannula Oxygen Flow Rate (L/min) 3 Positive well nourished and well developed; Negative for cachectic, contractures or unkempt General Appearance ED: well developed and NAD; Negative for unkempt, cachectic, contractures or pallor Nutritional Appearance: Negative for cachectic HEENT Reports moist mucous membranes normocephalic and atraumatic Eyes PERRL and EOMs intact bilaterally Neck no lymphadenopathy, supple and no JVD General: Negative for tenderness Chest Wall inspection of chest normal; Negative for palpation of chest normal Chest Narrative: Reproducible chest wall pain over the right chest however normal in appearance. Prior sternotomy well-healed. Chest: tenderness Resp normal respiratory effort and clear to auscultation bilaterally Cardio S1 normal heart sound and S2 normal heart sound; Negative for regular rate or regular rhythm Rate: other Other Details: Artificial heart valve click.A-fib rate about 75. Peripheral Pulses: pulses 2+ throughout GI normal to inspection, nondistended, normoactive bowel sounds, soft to palpation, non-tender, non-distended and no masses Back/Spine no CVA tenderness and no thoracic nor lumbar tenderness Extremity normal to inspection General Extremety ED: Negative for edema, pulses abnormal or tenderness General Extremity: Negative for edema or pulses abnormal Neuro oriented x3 and CN's II-XII intact bilaterally Sensorium / Orientation: awake, alert, oriented to person, oriented to place and oriented to time; Negative for confused Motor Exam: strength 5/5 throughout Psych mental status grossly normal Appearance: Negative for unkempt Skin no rashes or lesions noted and no wounds General Skin Exam: Negative for jaundice or pallor Rashes: No rashes noted Trauma: Negative for abrasion MDM MDM MDM Narrative Medical decision making narrative: 64-year-old female history of 2 artificial heart valves on Coumadin with atypical reproducible right-sided chest wall pain I think is going to end up being chest wall pain may be chest wall strain. She recently started I believe cardiac rehab. But she knows of no known injury. I do not think it is a DVT or PE. No prior history and she is on Coumadin. She undergo a cardiac workup. She does not wear anything for pain. Repeat exam patient is doing well At 9:38 AM. Patient doing well. Resting comfortably. We went over her labs. For 2-hour troponin is okay she will be discharged home with chest wall pain. Clinically I do not think this is cardiac. I do not think it is a PE. Repeat exam patient is doing well at 12:26 PM. I believe this to be musculoskeletal chest wall pain. Its reproducible on the right chest. I do not believe it is cardiac or pulmonary emboli. Patient's comfortable being discharged to home with outpatient follow-up. History & Record Review Discussion w/independent historian: Patient Lab Data Attestation: I reviewed the patient's lab results. Lab results narrative: CBC shows white count 6. H&H 13 and 40. Platelets 284. Chemistries show sodium 133. Anion gap 14. BUN and creatinine of 50 and 1.71. Glucose 136. Initial troponin 23. 2-hour troponin shows 21. Labs are consistent with baseline. Patient has had elevated troponins in the past. PT 21 INR 1.9. Labs: Laboratory Results - last 24 hr 09/15/24 09/15/24 09/15/24 07:45 08:23 08:38 WBC 6.0 RBC 4.60 Hgb 13.3 Hct 40.6 MCV 88.3 MCH 28.9 MCHC 32.8 RDW Std Deviation 48.1 H RDW Coeff of Ham 14.9 H Plt Count 284 MPV 11.0 Immature Gran % (Auto) 0.500 Neut % (Auto) 58.2 Lymph % (Auto) 24.1 [place] % (Auto) 13.6 H Eos % (Auto) 2.8 Baso % (Auto) 0.8 Absolute Neuts (auto) 3.5 Absolute Lymphs (auto) 1.45 Nucleated RBC % 0 PT Cancelled Cancelled INR Cancelled Cancelled Sodium Cancelled Cancelled 133 Potassium Cancelled Cancelled 4.2 Chloride Cancelled Cancelled 92 L Carbon Dioxide Cancelled Cancelled 27.6 Anion Gap Cancelled Cancelled 14 BUN Cancelled Cancelled 50 H Creatinine Cancelled Cancelled 1.71 H Estim Creat Clear Calc Cancelled Cancelled 39.25 L Est GFR (MDRD) Non-Af Cancelled Cancelled 33 L BUN/Creatinine Ratio Cancelled Cancelled 29.1 H Glucose Cancelled Cancelled 136 H Calcium Cancelled Cancelled 9.3 Troponin T High Sens Cancelled Cancelled 23 H D Troponin T Hi Sens 2 Hr 09/15/24 09/15/24 09:12 10:07 WBC RBC Hgb Hct MCV MCH MCHC RDW Std Deviation RDW Coeff of [place] Plt Count MPV Immature Gran % (Auto) Neut % (Auto) Lymph % (Auto) [place] % (Auto) Eos % (Auto) Baso % (Auto) Absolute Neuts (auto) Absolute Lymphs (auto) Nucleated RBC % PT 21.9 H INR 1.9 Sodium Potassium Chloride Carbon Dioxide Anion Gap BUN Creatinine Estim Creat Clear Calc Est GFR (MDRD) Non-Af BUN/Creatinine Ratio Glucose Calcium Troponin T High Sens Troponin T Hi Sens 2 Hr 21 H Radiography Chest X-Ray - ED: 2 View, Read by ED Physician, Bony Structures, Chronic Changes, Cardiomegaly, CHF and Right Effusion Diagnostic Testing: Clinical Impression(s) from Imaging Studies Chest X-Ray 09/15/24 08:25 IMPRESSION: Findings in keeping with a mild degree of CHF and small right pleural effusion. Prior mitral valve replacement. [facility] Chest x-ray, 2 views, AP and lateral, interpreted by myself and the radiologist. Shows cardiomegaly which is chronic. Right pleural effusion. Mild vascular in the bases consistent with mild CHF. Prior sternotomy. Prior artificial valve. Rhythm Strip Rhythm Strip: A-fib Rate: 64 Ectopy: None EKG Initial EKG: Attestation: I personally reviewed and interpreted this EKG as follows: Interpretation: No Acute Injury Pattern and Atrial Fibrillation Comments: A-fib rate is 64. Left bundle branch block. No acute signs of PA or ischemia. When compared to her prior EKG from September it is unchanged. Discharge Plan Triage Chief Complaint: Chest Pain ED Provider: Ad Forde Dx/Rx/DC Orders Clinical Impression: Acute chest wall pain, Chronic anticoagulation, History of diabetes mellitus, History of artificial heart valve Instructions: ED Chest Pain, Noncardiac Prescriptions: No Action duloxetine [Cymbalta] 60 mg capsule,delayed release(DR/EC) 120 mg PO DAILY acetaminophen [Tylenol Extra Strength] 500 mg tablet 1,000 mg PO DAILY PRN (Reason: pain) albuterol sulfate [Ventolin HFA] 90 mcg/actuation HFA aerosol inhaler 2 puff INHALATION Q4H PRN (Reason: shortness of breath or wheezing) Qty: 8.5 6RF budesonide-formoterol [Symbicort] 160-4.5 mcg/actuation HFA aerosol inhaler 2 puff inhalation BID Qty: 10.2 6RF loratadine 10 mg tablet 10 mg PO DAILY Qty: 90 3RF clobetasol 0.05 % cream 1 applic topical BID PRN (Reason: skin irritation) (DME) PEP device See Rx Instructions .ROUTE .MEDSUPPLY Qty: 1 0RF Rx Instructions: with training Ozempic 0.25 mg or 0.5 mg (2 mg/3 mL) pen injector 0.5 mg subcut QWEEK gabapentin 300 mg capsule 300 mg PO BID dapagliflozin propanediol [Farxiga] 10 mg tablet 10 mg PO QDAY Qty: 90 3RF sildenafil [Viagra] 25 mg tablet 25 mg PO TID acetylcysteine [NAC] 600 mg capsule 600 mg PO BID ipratropium-albuterol 0.5 mg-3 mg(2.5 mg base)/3 mL solution for nebulization 3 ml inhalation Q4H PRN PRN (Reason: SOB &/OR WHEEZING) Qty: 180 6RF multivitamin with folic acid 1 TABLET tablet 1 tab PO DAILY melatonin 5 MG capsule 5 mg PO QHS omeprazole 40 mg capsule,delayed release(DR/EC) 40 mg PO QDAY senna-docusate sodium Tablet 2 tab PO DAILY famotidine 20 mg tablet 20 mg PO BID Qty: 10 0RF ondansetron 4 mg tablet,disintegrating 4 mg PO Q6H PRN PRN (Reason: Nausea) Qty: 15 0RF torsemide 20 mg tablet 40 mg PO BID sildenafil (pulm.hypertension) 20 mg tablet 20 mg PO TID azelastine 137 mcg (0.1 %) spray,non-aerosol 2 spray intranasal BID Qty: 30 3RF Rx Instructions: administer into each nostril warfarin 5 mg tablet 5 mg PO .COMPLEX Qty: 180 3RF Protocol: Dose Management Condition: Thursday Dose/Route: 5 mg Instruction: 1 x 5 mg tablet Condition: Thursday Dose/Route: 5 mg Instruction: 1 x 5 mg tablet Condition: Thursday Dose/Route: 2.5 mg Instruction: 0.5 x 5 mg tablets Condition: Thursday Dose/Route: 2.5 mg Instruction: 0.5 x 5 mg tablets Condition: Dose/Route: 5 mg Instruction: 1 x 5 mg tablet Condition: Thursday Dose/Route: 5 mg Instruction: 1 x 5 mg tablet Condition: Thursday Dose/Route: 5 mg Instruction: 1 x 5 mg tablet Protocol Text: Adjustment Start Date: Thursday09/07/24 INR Value: 3.2 INR Date: 09/07/24 Recheck Date: 09/28/24 Rx Instructions: 5 mg orally daily: please give extra pills for dose changes, dose changes often; (DME) Handicap Placard See Rx Instructions .Route .MEDSUPPLY Qty: 1 0RF Rx Instructions: Good from 03/09/2024-03/09/2029 magnesium oxide 400 mg magnesium tablet 400 mg PO QDAY spironolactone 100 mg tablet 100 mg PO DAILY Qty: 180 3RF Rx Instructions: Hold for serum potassium more than 5.0 potassium chloride 10 mEq capsule, extended release 10 meq PO DAILY Qty: 90 3RF metoprolol tartrate 25 mg tablet 25 mg PO BID Qty: 180 3RF Primary Care Provider: Shantell Newton Referrals: Shantell Newton, DIRECTOR [facility] [Primary Care Provider] - As Needed Activity Restrictions/Additional Instructions: Your labs, chest x-ray and EKG look good. I suspect this is due to to chest wall strain. Ice to your chest wall. Tylenol for pain. This should progressively improve. Print Language: Persian Disposition Disposition: Home, Self Care
--- NOTE | 2024-09-15 08:25 | RAD_ITS ---
PROCEDURE: CHEST PA AND LATERAL 09/15/2024 REASON FOR EXAM: CHEST PAIN TECHNIQUE: Frontal and lateral views of the chest. COMPARISON: Prior study dated August 12, 2024. FINDINGS: Hardware: EKG electrodes are seen. The patient is status post midline sternotomy and mitral valve replacement. Heart: The heart size is upper limits of normal. Mediastinum: Calcification of the aortic arch. Lungs: Vascular congestion and mild degree of CHF with the small right pleural effusion. Bones: Degenerative changes are identified within the thoracic spine. RAD/Chest PA and Lateral IMPRESSION: Findings in keeping with a mild degree of CHF and small right pleural effusion. Prior mitral valve replacement. Reading Location: [facility]
[2024-09-15 09:12] LABS: Anion Gap 14 (5-15); BUN 50 mg/dL (4-19); BUN/Creat Ratio 29.1 RATIO (10-20); Calcium,Total 9.3 mg/dL (7.6-11.0); Carbon Dioxide 27.6 mmol/L (21.0-32.0); Chloride 92 mmol/L (98-108); Creatinine, Serum 1.71 mg/dL (0.70-1.20); EST Glomerular Filtration Rate 33 (>60); Estimated Creatinine Clearance 39.25 ml/min (50-250); Glucose 136 mg/dL (70-99); Potassium 4.2 mmol/L (3.3-5.1); Sodium Level 133 mmol/L (133-145); Troponin T High Sensitivity 23 ng/L (<=14)
[2024-09-15 09:38] LABS: International Normalized Ratio 1.9; Prothrombin Time (Protime)PT. 21.9 SECONDS (11.7-14.9)
[2024-09-15 10:40] LABS: Troponin T High Sens 2 HR 21 ng/L (<=14)
== END 2024-09-15 12:45 | disposition home or self-care (01) ==
PROVIDERS: Emergency Provider Emergency Medicine; Visit Provider Emergency Medicine
DX: R07.89 Other chest pain (principal); I11.0 Hypertensive heart disease with heart failure; I50.32 Chronic diastolic (congestive) heart failure; E11.9 Type 2 diabetes mellitus without complications; G47.33 Obstructive sleep apnea (adult) (pediatric); J45.909 Unspecified asthma, uncomplicated; E78.5 Hyperlipidemia, unspecified; Z79.01 Long term (current) use of anticoagulants; Z99.89 Dependence on other enabling machines and devices; Z95.2 Presence of prosthetic heart valve; F41.9 Anxiety disorder, unspecified; Z79.899 Other long term (current) drug therapy; Z79.51 Long term (current) use of inhaled steroids; Z79.85 Long-term (current) use of injectable non-insulin antidiabetic drugs; Z90.722 Acquired absence of ovaries, bilateral; Z90.710 Acquired absence of both cervix and uterus; Z98.51 Tubal ligation status
CPT/HCPCS: 71046; 80048; 84484; 85025; 85610; 93005; 99284; A4216

== ENCOUNTER → 2024-09-20 | Outpatient (CLI) | payer OTHER, SELFPAY ==
[2024-09-01 07:47] VITALS: BMI 31.9
[2024-09-20 16:31] LABS: Absolute Neutrophil Count 4.9 X10^3/uL (2.0-7.7); Basophil# 0.02 X10^3/uL; Basophil% 0.3 % (0-1); Eosinophil# 0.17 X10^3/uL; Eosinophils% 2.3 % (0-5); Hematocrit 40.5 % (37-47); Hemoglobin 13.1 g/dL (12.0-15.0); Lymphocyte % 17.9 % (19-41); Mean Corp Hgb Conc 32.3 g/dL (32-36); Mean Corpuscular Hgb 28.4 pg (27.0-32.0); Mean Corpuscular Volume 87.9 fL (81-99); Mean Platelet Vol. 10.3 fl (6.2-12.0); Monocyte# 0.83 X10^3/uL; Monocyte% 11.4 % (0-10); NRBC Flagged by Analyzer 0 % (0-5); Neutrophil # 4.93 X10^3/uL (2.7-7.7); Neutrophil % 67.7 % (47-70); Platelet Count 282 K/mm3 (150-450); RBC Distribution Width CV 14.7 % (11.6-14.6); RBC Distribution Width SD 47.1 fl (35.1-43.9); Red Blood Count 4.61 M/mm3 (4.2-5.4); White Blood Count 7.3 K/mm3 (4.4-11.0)
[2024-09-20 16:35] LABS: International Normalized Ratio 2.6; Prothrombin Time (Protime)PT. 28.6 SECONDS (11.7-14.9)
[2024-09-20 17:33] LABS: Anion Gap 11 (5-15); BUN 38 mg/dL (4-19); BUN/Creat Ratio 25.3 RATIO (10-20); Carbon Dioxide 30.7 mmol/L (21.0-32.0); Chloride 92 mmol/L (98-108); EST Glomerular Filtration Rate 39 (>60); Glucose 107 mg/dL (70-99); Magnesium 2.9 mg/dL (1.5-2.2); Potassium 4.7 mmol/L (3.3-5.1); Pro- Brain NATRIURETIC PEPTIDE 2120 pg/mL (<=900); Sodium Level 135 mmol/L (133-145)
== END | disposition home or self-care (01) ==
LOC: LAB 14:37
PROVIDERS: Internal Medicine Cardiovascular Disease; Referring Provider Nurse Practitioner Gerontology; Visit Provider Nurse Practitioner Gerontology
DX: Z95.2 Presence of prosthetic heart valve (principal); I50.32 Chronic diastolic (congestive) heart failure; I48.0 Paroxysmal atrial fibrillation; Z79.01 Long term (current) use of anticoagulants; R25.1 Tremor, unspecified; E87.6 Hypokalemia; R06.02 Shortness of breath; D64.9 Anemia, unspecified; R53.83 Other fatigue
CPT/HCPCS: 36415; 80048; 83735; 83880; 84443; 85025; 85610

== ENCOUNTER 2024-10-03 10:00 | Outpatient (RCR) | payer OTHER, SELFPAY ==
[2024-09-01 07:47] VITALS: BMI 31.9
[2024-09-04 00:21] VITALS: BP 102/56; BP 122/66; BMI 31.9
--- NOTE | 2024-09-29 11:14 | CR.ITP_ITS ---
Exercise - Initial Assessment Physician Prescribed Exercise Modalities: SciFit Stepper, SciFit Pro-II Ergometer and SciFit Lateral Graphic Design Manager Nutrition - Initial Assessment Weight Mgt (Other Care) Height: 5 ft 7 in Weight:: 204 lb BMI: 31.9 Core - Initial Assessment Hypertension Resting Blood Pressure:: 110/64 Citizen Of [place] [employer] Hypertension Guidelines Psychosocial - Initial Assess Target Goals Target Goals Referral to Behavioral Health PS - Interventions: Yes: Attend Stress Management Classes and No: Referral to Behavioral Health if PHQ-9 score >9: Nutrition Survey Nutrition Survey Instructions Scoring Instructions Exercise - 30-day Assessment Physician Prescribed Exercise Modalities: SciFit Stepper, SciFit Pro-II Ergometer and SciFit Lateral Graphic Design Manager Exercise - 60-day Assessment Visit Date of Eval: 09/29/24 Session #:: 10 Physician Prescribed Exercise Modalities: SciFit Stepper, SciFit Pro-II Ergometer and SciFit Lateral [place] Frequency: 3x/week for 12 weeks [36 sessions] Intensity: 60-80% of age predicted maximum heart rate reserve Duration: 30 - 45 minutes METs - Progression 0.5-1.0 weekly:: 0.5-1.0 Current METSs:: 2 Target Heart Rate:: 95-119 Target RPE 11-14 Current RPE:: 11-14 Current RPE:: 11 Maximum Excercise HR:: 97 Resting Blood Pressure: 102/64 Maximum Exercise Blood Pressure: 126/70 EKG Type: NST to ST with rare ectopy Current Physical Activity or Exercising minutes: 30-45 Outcomes & Goals Goals:: Verbalizes understanding of THR, RPE & goal METS by session 6, Documents in home exercise log/reports 30 min aerobic 5 day/wk by DC and Demonstrates accurate pulse taking by DC Intervention & Plan Exercise Program Goals: Instruct on personal THR & RPE, Instruct on MET level & personal MET goal and Show patient to take own pulse /validate performance until accurate 30-day Reassessments 30 day Reassessments:: Progressing Reassessment Notes & Comments:: Pt uses RPE scale appropriately, pt encouraged to complete home exercise on off days Physical Activity Home Exercise Physical Activity - Home Exercise: Safe Exercise, Warm-up, Self-monitoring, Cool-Down, Home Exercise > 30 min Daily and Sitting Time <3 hours/daily Outcomes & Goals Outcomes/Goals: Demonstrates correct Warm-up/exercise Cool-Down (S3) if = 2.5 METs, Verbalizes symptoms of exercise intolerance by Session 3 (S3) and Demonstrate safe equipment use (S3) & follows exercise prescrition (6) Intervention & Plan Plan/Intervention: Instruct warm-up & cool-down if exercising at > 2 METs, Instruct on symptoms of exercise intolerance & actions to take, Instruct & monitor on saf and Assess intial functional capacity & safety risk 30-day Reassessments 30 day Reassessments:: Progressing Reassessment Notes & Comments:: Pt understands symptoms of exercise intolerance and actions to take if occur, pt demonstrates safe use of equipment Exercise - 90-day Assessment Physician Prescribed Exercise Modalities: SciFit Stepper, SciFit Pro-II Ergometer and SciFit Lateral Graphic Design Manager Exercise - Final/Discharge Physician Prescribed Exercise Modalities: SciFit Stepper, SciFit Pro-II Ergometer and SciFit Lateral Graphic Design Manager Nutrition - 30-Day Assessment Weight Mgt (Other Care) Height: 5 ft 7 in Weight:: 204 lb BMI: 31.9 Nutrition - 60-Day Assessment Visit Date of Eval: 09/29/24 Session #:: 10 Cholesterol/Lipids (Other Core Measures) Determine presence & major risk factors that modify LDL goal: Hypertension or hypertensive medication and Age men > 45 years; women >/= 55 years Outcomes/Goals: Pt IDs own risk factors & lifestyle modifications by Session 10, Verbalizes symptoms of angina & response by session 3. and Pt independently manages Intervention/Plan: Advocate for lipid panel cholesterol medication if applicable, Instruct on personal lipid levels & lipid goals/NCEP guidelines and Instruct on cholesterol 30-day Reassessments:: Progressing Reassessment Notes & Comments:: Pt attending pulmonary diet education classes and takes medications as prescribed Diabetes (Other Core Measures) Diabetes Type: Diagnosis Type II ICD-10 E11 Insulin dependent injection/pump?: No Non-Insulin Dependent?: Yes Outcomes/Goals:: Able to state symptoms of (hyperglycemia, hypoglycemia) Intervention/Plan:: Instruct on (monitoring blood sugars at home) 30-day Reassessments:: Progressing Weight Mgt (Other Care) Not Applicable: Yes Height: 5 ft 7 in Weight:: 204 lb BMI: 31.9 Diagnosis Overweight/Obesity BMI> 30% ICD-10 E66: Yes Diagnosis High BMI/Morbid Obesity BMI> 35% ICD-10 Z68: No Outcomes/Goals: Pt sets, maintains & shows weight loss goal & trend during rehab Intervention/Plan: Instruct on ideal BMI & set weight loss goal w/patient, Assist pt to ID & incorporate diet changes for weight loss by S9, Refer to Structured Weight Loss program as appropriate and Encourage goal of using 250- 300dcal per session for weight loss 30 day Reassessments:: Progressing Reassessment Notes & Comments:: Pt continues to monitor weight at home and working to incorporate diet changes for weight loss Healthy Eating Habits Will attend diet classes:: Yes Outcomes/Goals:: Consume diet rich in vegs,fruits,whole grain/high fiber,fish,lean meat and Limit sat/trans fats,cholesterol & added salts & sugars Intervention/Plan:: Assess current eating habits 30-day Reassessments:: Progressing (Pt attending diet classes) Education Gave educational materials for:: Signs & symptoms of hypoglycemia, Signs & symptoms of hyperglycemia, Relate diabetes to coronary artery disease and Healthy eating Core - Final Assessment Hypertension Resting Blood Pressure:: 110/64 Citizen Of [place] [employer] Hypertension Guidelines Core - 60-Day Assessment Visit Date of Eval: 09/29/24 Session #:: 10 Medication Compliance Preventative Medication(s):: Beta radha H/O mental health issues: depression, anxiety, or addiction?: No Doesn?t believe in the benefits of treatment?: No Believes medications are unnecessary or harmful?: No Has a concern about medication side effects?: No Expresses concern over the cost of medications?: No Outcomes/Goals: Verbalizes medications,desired effect & common side effects @ DC, Pt self-reports following medication regimen and Keeps card in wallet w/medications listed by DC Interventions/plans: Instruct on medication effects & side effects, Review medication list w/patient every two weeks and Instruct importance of taking meds as ordered & assist problem solving 30-day Reassessments:: Progressing Reassessment Notes & Comments:: Pt taking all medications as prescribed, pt familiar with common side effects of medications Tobacco Use Tobacco Use: Non-smoker Hypertension Hypertension Diagnosis:: Hypertension ICD-10 I10 Resting Blood Pressure:: 102/64 Resting Blood Pressure:: 110/64 Citizen [place] [employer] Hypertension Guidelines Peak Exercise Blood Pressure:: 126/70 Outcomes/Goals: Able to verbalize/achieve optimal blood pressure <130/80 and Incorporates diet changes & exercise for blood pressure control by DC Interventions/plan: Instruct on optimal blood pressure, hypertension & medications and Instruct on effects of sodium, alcohol, stress, exercise &hypertension 30 day Reassessments:: Met Reassessment Notes & Comments:: Pt maintaining optimum blood pressure at rest Psychosocial - 30-Day Assess Target Goals Target Goals Referral to Behavioral Health PS - Interventions: Yes: Attend Stress Management Classes and No: Referral to Behavioral Health if PHQ-9 score >9: Outcomes/Goals: See list Psychosocial Outcomes/Goals:: ID's personal stressors & 2 strategies to manage stress by discharge Psychosocial - 60-Day Assess VIsit Date of Eval: 09/29/24 Session #:: 10 History of Emotional Disorders: None Target Goals Target Goals Psychosocial Test Tool Used:: PHQ-9 Questionnaire phq-9 Severity See PHQ-9 Score: 8 Total Score:: 8 Referral to Behavioral Health PS - Interventions: Yes: Attend Stress Management Classes and No: Referral to Behavioral Health if PHQ-9 score >9: Outcomes/Goals: See list Psychosocial Outcomes/Goals:: ID's personal stressors & 2 strategies to manage stress by discharge Intervention/Plan: See List Interventions/Plan:: Assess stressors,coping strategies & signs of derpression on admission, Instruct/assist pt to develop coping & personal stress Mgt strategies, Refer to Behavioral Health if appropriate, Refer to Physician if appropriate and Instruct patient to recognize signs & symptoms of depression 30-day Reassessments: 30 day Reassessments:: Met Reassessment Notes & Comments:: Pt denies any psychosocial needs at this time Psychosocial - 90-Day Assess Target Goals Target Goals Referral to Behavioral Health PS - Interventions: Yes: Attend Stress Management Classes and No: Referral to Behavioral Health if PHQ-9 score >9: Psychosocial - Final Assessmen Target Goals Target Goals Referral to Behavioral Health PS - Interventions: Yes: Attend Stress Management Classes and No: Referral to Behavioral Health if PHQ-9 score >9: Nutrition - 90-Day Assessment Weight Mgt (Other Care) Height: 5 ft 7 in Weight:: 204 lb BMI: 31.9 Nutrition - Final Assessment Weight Mgt (Other Care) Height: 5 ft 7 in Weight:: 204 lb BMI: 31.9
--- NOTE | 2024-09-29 11:39 | PCM.PR.TP ---
Exercise - Initial Assessment Visit Session Number:: 10 Physician Prescribed Exercise Modalities: FooundFit Stepper, Electro-Petroleum Pro-II Ergometer and Electro-Petroleum Lateral Director Supplier Quality Target HR:: 119 Target RPE 12-16:: 11-14 Current RPD:: 10-11.5 Maximum Exercise HR:: 97 Resting Blood Pressure: 102/64 Maximum Exercise Blood Pressure: 126/70 Minimum SpO2 with exercise: 91 EKG Type: NSR to ST with rare ectopy Nutrition/Wt Mgmt - Initial Visit Session Number:: 10 Weight Management Admit Height:: 5 ft 7 in Admit Weight:: 204 lb Admit BMI:: 31.9 Nutrition/Wt Mgmt - 30-Day Visit Date of Eval: 09/29/24 Session Number:: 10 Weight Management Height: 5 ft 7 in Weight:: 204 lb BMI: 31.9 Nutrition/Wt Mgmt - 60-Day Visit Date of Eval: 09/29/24 Session Number:: 10 Weight Management Weight Assessment:: WC <35 female Height: 5 ft 7 in Weight:: 204 lb BMI: 31.9 Weight Goals Progress:: Progressing Nutrition/Wt Mgmt - 90-Day Visit Session Number:: 10 Weight Management Weight Assessment:: WC <35 female Height: 5 ft 7 in Weight:: 204 lb BMI: 31.9 Weight Goals Progress:: Progressing Nutrition/Wt Mgmt - Final Visit Session Number:: 10 Weight Management Height: 5 ft 7 in Weight:: 204 lb BMI: 31.9 Psychosocial - Initial Assess Visit Session Number:: 10 Problems/Goals History of Emotional Disorders: None Psychosocial Goals: 1. Patient is free from overwhelming symtoms of depression (or anxiety, 2. Identifies personal stressors & states the strategies for managing, 3. Identifies activities to decrease isolation and/or symptoms of, 4. Improved psychosocial coping skills., 5. Verbalizes coping strategies., 6. Adequate treatment of depression. and 7. Improved Q.O.L. Psychosocial Test Tool Used:: PHQ-9 Questionnaire PHQ-9 Score: 9 Referral to Behavioral Health PS - Interventions: Yes: Attend Stress Management Classes Intervention/Plan: See List Interventions/Plan:: Assess stressors,coping strategies & signs of derpression on admission, Instruct/assist pt to develop coping & personal stress Mgt strategies, Refer to Behavioral Health if appropriate, Refer to Physician if appropriate and Instruct patient to recognize signs & symptoms of depression Psychosocial - 30-Day Visit Date of Eval: 09/29/24 Session Number:: 10 Problems/Goals History of Emotional Disorders: None Psychosocial Goals: 1. Patient is free from overwhelming symtoms of depression (or anxiety, 2. Identifies personal stressors & states the strategies for managing, 3. Identifies activities to decrease isolation and/or symptoms of, 4. Improved psychosocial coping skills., 5. Verbalizes coping strategies., 6. Adequate treatment of depression. and 7. Improved Q.O.L. Psychosocial Test Tool Used:: PHQ-9 Questionnaire PHQ-9 Score: 9 Referral to Behavioral Health PS - Interventions: Yes: Attend Stress Management Classes Plan Interventions/Plan:: Assess stressors,coping strategies & signs of derpression on admission, Instruct/assist pt to develop coping & personal stress Mgt strategies, Refer to Behavioral Health if appropriate, Refer to Physician if appropriate and Instruct patient to recognize signs & symptoms of depression Psychosocial - 60-Day Visit Date of Eval: 09/29/24 Session Number:: 10 Problems/Goals History of Emotional Disorders: None Psychosocial Goals: 1. Patient is free from overwhelming symtoms of depression (or anxiety, 2. Identifies personal stressors & states the strategies for managing, 3. Identifies activities to decrease isolation and/or symptoms of, 4. Improved psychosocial coping skills., 5. Verbalizes coping strategies., 6. Adequate treatment of depression. and 7. Improved Q.O.L. Psychosocial Test Tool Used:: PHQ-9 Questionnaire PHQ-9 Score: 9 Referral to Behavioral Health PS - Interventions: Yes: Attend Stress Management Classes Plan Interventions/Plan:: Assess stressors,coping strategies & signs of derpression on admission, Instruct/assist pt to develop coping & personal stress Mgt strategies, Refer to Behavioral Health if appropriate, Refer to Physician if appropriate and Instruct patient to recognize signs & symptoms of depression Psychosocial - 90-Day Visit Session Number:: 10 Problems/Goals History of Emotional Disorders: None Psychosocial Goals: 1. Patient is free from overwhelming symtoms of depression (or anxiety, 2. Identifies personal stressors & states the strategies for managing, 3. Identifies activities to decrease isolation and/or symptoms of, 4. Improved psychosocial coping skills., 5. Verbalizes coping strategies., 6. Adequate treatment of depression. and 7. Improved Q.O.L. Psychosocial Test Tool Used:: PHQ-9 Questionnaire PHQ-9 Score: 9 Referral to Behavioral Health PS - Interventions: Yes: Attend Stress Management Classes Plan Interventions/Plan:: Assess stressors,coping strategies & signs of derpression on admission, Instruct/assist pt to develop coping & personal stress Mgt strategies, Refer to Behavioral Health if appropriate, Refer to Physician if appropriate and Instruct patient to recognize signs & symptoms of depression Psychosocial - Final Assess Visit Session Number:: 10 Problems/Goals History of Emotional Disorders: None Psychosocial Goals: 1. Patient is free from overwhelming symtoms of depression (or anxiety, 2. Identifies personal stressors & states the strategies for managing, 3. Identifies activities to decrease isolation and/or symptoms of, 4. Improved psychosocial coping skills., 5. Verbalizes coping strategies., 6. Adequate treatment of depression. and 7. Improved Q.O.L. Psychosocial Test Tool Used:: PHQ-9 Questionnaire PHQ-9 Score: 9 Referral to Behavioral Health PS - Interventions: Yes: Attend Stress Management Classes Plan Interventions/Plan:: Assess stressors,coping strategies & signs of derpression on admission, Instruct/assist pt to develop coping & personal stress Mgt strategies, Refer to Behavioral Health if appropriate, Refer to Physician if appropriate and Instruct patient to recognize signs & symptoms of depression Oxygen & Oxygen Titration Init Visit Session Number:: 10 Initial Assessment SpO2:: 91 Oxygen & Oxygen Titration 30D Visit Date of Eval: 09/29/24 Session Number:: 10 Reassessment Breath Sounds:: No Audible Breath Sounds SpO2:: 91 Oxygen & Oxygen Titration 60D Visit Date of Eval: 09/29/24 Session Number:: 10 Reassessment Reassessment- 60 Days: Demonstrate knowledge of O2 Rx at rest & w/exercise, Using O2 as Rx'd and Has home O2 as Rx'd Breath Sounds:: No Audible Breath Sounds SpO2:: 91 Oxygen & Oxygen Titration 90D Visit Date of Eval: 09/29/24 Session Number:: 10 Reassessment Breath Sounds:: No Audible Breath Sounds SpO2:: 91 Oxygen & Oxygen Titration JUANJOSE Visit Date of Eval: 09/29/24 Session Number:: 10 Reassessment Breath Sounds:: No Audible Breath Sounds SpO2:: 91 Core Components - Initial Visit Session Number:: 10 Hypertension Hypertension Diagnosis:: Hypertension ICD-10 I10 BP: 102/64 [place] [employer] Hypertension Guidelines Blood Pressure: 126/70 Outcomes/Goals: Able to verbalize/achieve optimal blood pressure <130/80 and Incorporates diet changes & exercise for blood pressure control by DC Tobacco - Initial Assessment Tobacco Program Goals Tobacco Use: Non-smoker Diabetes Diabetes:: Yes Insulin: No BMI:: 31 Core Components - 30 DAYS Visit Date of Eval: 09/29/24 Session Number:: 10 Hypertension Hypertension Diagnosis:: Hypertension ICD-10 I10 Resting Blood Pressure:: 102/64 [place] [employer] Hypertension Guidelines Peak Exercise Blood Pressure:: 126/70 Change in medication: No Outcomes/Goals: Able to verbalize/achieve optimal blood pressure <130/80 and Incorporates diet changes & exercise for blood pressure control by DC Interventions/plan: Instruct on optimal blood pressure, hypertension & medications and Instruct on effects of sodium, alcohol, stress, exercise &hypertension 30 day Reassessments:: Met Reassessment Notes & Comments:: Pt maintaining optimal resting blood pressure at rest and taking BP medications as prescribed Tobacco - 30-Day Tobacco Program Goals Tobacco Use: Non-smoker Exacerbation Mgmt & Airway Clearance Reassessment: Demonstrates knowledge of O2 Rx at rest, Demonstrates knowledge of O2 Rx with exercise, Using O2 as prescribed and Has home O2 as prescribed Bronchial Hygiene Plan: Yes: Pt demonstrates correctly for effective cough, Yes: Pt demo correct for CPT, Yes: Pt demo correct for device, Yes: Pt demo correct for NS nasal spray, Yes: Pt demo correct for sputum management, Yes: Pt demo correct for improved hydration, Yes: Pt demo correct for hand hygiene, Yes: Pt demo correct for evalute sputum, Yes: Pt demo correct for verbalize when to call MD and Yes: Pt demo correct for cleaning of respiratory equipment Medication Taking medications 100% of the time:: Met Medication reassessment: Yes: Pt demonstrates correct technique timing for MDI, Yes: Pt demonstrates correct technique timing for DPI, Yes: Pt demonstrates correct technique timing for NEB and Yes: Pt demonstrates correct technique timing for spacer Diabetes Diabetes:: Yes BMI:: 31 Insulin dependent injection/pump?: No Non-Insulin Dependent?: Yes Refer to Nutritional Services: Medical Nutrition Therapy 30-day Reassessments:: Progressing Reassessment Notes & Comments:: Pt encouraged to monitor blood sugars at home Core Components - 60 DAYS Visit Date of Eval: 09/29/24 Session Number:: 10 Hypertension Hypertension Diagnosis:: Hypertension ICD-10 I10 Resting Blood Pressure:: 102/64 [place] [employer] Hypertension Guidelines Peak Exercise Blood Pressure:: 126/70 Change in medication: No Outcomes/Goals: Able to verbalize/achieve optimal blood pressure <130/80 and Incorporates diet changes & exercise for blood pressure control by DC Interventions/plan: Instruct on optimal blood pressure, hypertension & medications and Instruct on effects of sodium, alcohol, stress, exercise &hypertension 60 day Reassessments:: Met Reassessment Notes & Comments:: Pt maintaining optimal resting blood pressure at rest and taking BP medications as prescribed Tobacco - 60-Day Tobacco Program Goals Tobacco Use: Non-smoker Exacerbation Mgmt & Airway Clearance Reassessment: Demonstrates knowledge of O2 Rx at rest, Demonstrates knowledge of O2 Rx with exercise, Using O2 as prescribed and Has home O2 as prescribed Bronchial Hygiene Plan: Yes: Pt demonstrates correctly for effective cough, Yes: Pt demo correct for CPT, Yes: Pt demo correct for device, Yes: Pt demo correct for NS nasal spray, Yes: Pt demo correct for sputum management, Yes: Pt demo correct for improved hydration, Yes: Pt demo correct for hand hygiene, Yes: Pt demo correct for evalute sputum, Yes: Pt demo correct for verbalize when to call MD and Yes: Pt demo correct for cleaning of respiratory equipment Medication Taking medications 100% of the time:: Met Taking medications 100% of the time:: Met Medication reassessment: Yes: Pt demonstrates correct technique timing for MDI, Yes: Pt demonstrates correct technique timing for DPI, Yes: Pt demonstrates correct technique timing for NEB and Yes: Pt demonstrates correct technique timing for spacer 60-day Reassessments:: Met Reassessment Notes & Comments:: Pt taking medications as prescribed, pt demonstrating correct technique for pulmonary devices Diabetes Diabetes:: Yes BMI:: 31 Insulin dependent injection/pump?: No Non-Insulin Dependent?: Yes Refer to Nutritional Services: Medical Nutrition Therapy 60-day Reassessments:: Progressing Reassessment Notes & Comments:: Pt encouraged to monitor blood sugars at home Core Components - 90 DAYS Visit Session Number:: 10 Hypertension Hypertension Diagnosis:: Hypertension ICD-10 I10 Resting Blood Pressure:: 102/64 [place] [employer] Hypertension Guidelines Peak Exercise Blood Pressure:: 126/70 Outcomes/Goals: Able to verbalize/achieve optimal blood pressure <130/80 and Incorporates diet changes & exercise for blood pressure control by DC Interventions/plan: Instruct on optimal blood pressure, hypertension & medications and Instruct on effects of sodium, alcohol, stress, exercise &hypertension 90 day Reassessments:: Met Reassessment Notes & Comments:: Pt maintaining optimal resting blood pressure at rest and taking BP medications as prescribed Tobacco - 90-Day Tobacco Program Goals Tobacco Use: Non-smoker Exacerbation Mgmt & Airway Clearance Bronchial Hygiene Plan: Yes: Pt demonstrates correctly for effective cough, Yes: Pt demo correct for CPT, Yes: Pt demo correct for device, Yes: Pt demo correct for NS nasal spray, Yes: Pt demo correct for sputum management, Yes: Pt demo correct for improved hydration, Yes: Pt demo correct for hand hygiene, Yes: Pt demo correct for evalute sputum, Yes: Pt demo correct for verbalize when to call MD and Yes: Pt demo correct for cleaning of respiratory equipment Medication Medication reassessment: Yes: Pt demonstrates correct technique timing for MDI, Yes: Pt demonstrates correct technique timing for DPI, Yes: Pt demonstrates correct technique timing for NEB and Yes: Pt demonstrates correct technique timing for spacer Diabetes Diabetes:: Yes BMI:: 31 Insulin dependent injection/pump?: No Non-Insulin Dependent?: Yes Refer to Nutritional Services: Medical Nutrition Therapy 90-day Reassessments:: Progressing Reassessment Notes & Comments:: Pt encouraged to monitor blood sugars at home Core Components - Final Visit Session Number:: 10 Hypertension Hypertension Diagnosis:: Hypertension ICD-10 I10 Resting Blood Pressure:: 102/64 [place] [employer] Hypertension Guidelines Peak Exercise Blood Pressure:: 126/70 Outcomes/Goals: Able to verbalize/achieve optimal blood pressure <130/80 and Incorporates diet changes & exercise for blood pressure control by DC Tobacco - Final Tobacco Program Goals Tobacco Use: Non-smoker Exacerbation Mgmt & Airway Clearance Bronchial Hygiene Plan: Yes: Pt demonstrates correctly for effective cough, Yes: Pt demo correct for CPT, Yes: Pt demo correct for device, Yes: Pt demo correct for NS nasal spray, Yes: Pt demo correct for sputum management, Yes: Pt demo correct for improved hydration, Yes: Pt demo correct for hand hygiene, Yes: Pt demo correct for evalute sputum, Yes: Pt demo correct for verbalize when to call MD and Yes: Pt demo correct for cleaning of respiratory equipment Medication Medication reassessment: Yes: Pt demonstrates correct technique timing for MDI, Yes: Pt demonstrates correct technique timing for DPI, Yes: Pt demonstrates correct technique timing for NEB and Yes: Pt demonstrates correct technique timing for spacer Diabetes Diabetes:: Yes BMI:: 31 Insulin dependent injection/pump?: No Non-Insulin Dependent?: Yes Refer to Nutritional Services: Medical Nutrition Therapy Final Reassessments of Goals:: Progressing Reassessment Notes & Comments:: Pt encouraged to monitor blood sugars at home Patient Health Questionnaire PHQ-9 Screening 60-Day Re-eval Assessment: 1. Little interest or pleasure in doing things: Not at all 2. Feeling down, depressed, or hopeless: Not at all 3. Trouble falling or staying asleep, or sleeping too much: More than half the days 4. Feeling tired or having little energy: Nearly every day 5. Poor appetite or overeating: Several days 6. Feeling bad about yourself -- or that you are a failure or have let yourself or your family down: Not at all 7. Trouble concentrating on things, such as reading the newspaper or watching television: Several days 8. Moving or speaking so slowly that other people could have noticed. Or the opposite - being so fidgety or restless that you have been moving around a lot more than usual: Several days 9. Thoughts that you would be better off , or of hurting yourself in some way: Not at all Total Score: 8 Knowledge Questionaire (BCKQ) Information Information: [place] COPD Knowledge Questionnaire (BCKQ) This questionnaire is designed to find out what you know about your lung problem. It should be completed without help form anyone else. This usually takes between 10 and 20 minutes. Your answers will help us to find out what information you need to help you to understand and manage your lung condition. [facility] the council which you think is the correct answer. Self-Efficacy 6-Item Scale 60-Day Re-eval Assessment: We would like to know how confident you are in doing certain activities. Please select your confidence level for: Fatigue Select Number: 4 Physical Discomfort or Pain Select Number: 8 Emotional Distress Select Number: 9 Other Symptoms or Health Problems Select Number: 4 Different Tasks and Activities Select Number: 4 Medication Select Number: 7 Total Score:: 6 Nutrition Survey Nutrition Survey Instructions Scoring Instructions
[2024-09-29 11:57] VITALS: BP 102/64; BP 126/70; O2SAT 91; BMI 31.0; BMI 31.9
== END 2024-10-03 23:59 ==
LOC: PR 10:00
PROVIDERS: PCP Nurse Practitioner Family; Referring Provider Internal Medicine Pulmonary Disease; Visit Provider Internal Medicine Pulmonary Disease
DX: I27.20 Pulmonary hypertension, unspecified (principal)
CPT/HCPCS: 97150; G0239

== ENCOUNTER 2024-10-24 10:32 | Outpatient (RCR) | payer OTHER, SELFPAY ==
[2024-09-29 11:57] VITALS: BMI 31.9
--- NOTE | 2024-10-04 10:25 | RAD_ITS ---
PROCEDURE: CHEST PA AND LATERAL 10/04/2024 REASON FOR EXAM: SHORTNESS OF BREATH TECHNIQUE: CHEST PA AND LATERAL COMPARISON: None FINDINGS: Moderate cardiomegaly. Calcified aortic arch. Median sternotomy wires. Mild pulmonary vascular congestion and interstitial edema. Mild right base effusion. Right lower lobe opacity not excluded. No pneumothorax. Multilevel right rib fractures, likely chronic. RAD/Chest PA and Lateral IMPRESSION: Mild pulmonary vascular congestion and interstitial edema. Mild right base effusion. Right lower lobe opacity not excluded. Reading Location: [id number]
[2024-10-04 11:21] LABS: Hematocrit 43.9 % (37-47); Hemoglobin 14.5 g/dL (12.0-15.0); Immature Granulocytes Count 0.020 X10^3/uL (0.0-0.0); Mean Corp Hgb Conc 33.0 g/dL (32-36); Mean Corpuscular Volume 88.3 fL (81-99); Mean Platelet Vol. 10.9 fl (6.2-12.0); NRBC Flagged by Analyzer 0 % (0-5); Platelet Count 270 K/mm3 (150-450); Prothrombin Time (Protime)PT. 32.2 SECONDS (11.7-14.9); RBC Distribution Width CV 14.6 % (11.6-14.6); RBC Distribution Width SD 47.6 fl (35.1-43.9); Red Blood Count 4.97 M/mm3 (4.2-5.4); White Blood Count 6.7 K/mm3 (4.4-11.0)
[2024-10-04 11:55] LABS: Anion Gap 13 (5-15); BUN 38 mg/dL (4-19); BUN/Creat Ratio 22.8 RATIO (10-20); Calcium,Total 9.8 mg/dL (7.6-11.0); Carbon Dioxide 29.8 mmol/L (21.0-32.0); Chloride 92 mmol/L (98-108); Glucose 62 mg/dL (70-99); Potassium 3.6 mmol/L (3.3-5.1); Pro- Brain NATRIURETIC PEPTIDE 1591 pg/mL (<=900)
[2024-10-24 11:43] LABS: Prothrombin Time (Protime)PT. 28.9 SECONDS (11.7-14.9)
[2024-10-24 12:12] LABS: AST(SGOT) 30 U/L (<=31); Alanine Aminotransfer ALT/SGPT 13 U/L (<=34); Albumin, Serum 4.1 g/dL (3.4-4.8); Alkaline Phosphatase 80 U/L (35-104); Bilirubin, Direct 0.33 mg/dL (0.00-0.30); Cholesterol 260 mg/dL (<=200); Globulin 4.4 g/dL (2.2-4.2); Low Density Lipoprotein Calc. 182 mg/dL; Triglycerides 176 mg/dL; Very Low Density Lipoprotein 35 mg/dL (5-40); cholesterol:hdl ratio screen 6.03
[2024-10-24 12:32] LABS: Anion Gap 16 (5-15); BUN 38 mg/dL (4-19); BUN/Creat Ratio 22.5 RATIO (10-20); Calcium,Total 9.7 mg/dL (7.6-11.0); Carbon Dioxide 27.1 mmol/L (21.0-32.0); Chloride 90 mmol/L (98-108); Glucose 119 mg/dL (70-99); Potassium 4.1 mmol/L (3.3-5.1)
== END 2024-11-03 21:40 | disposition home or self-care (01) ==
LOC: LAB 10:32
PROVIDERS: Student in an Organized Health Care Education/Training Program; Referring Provider Nurse Practitioner Family; Visit Provider Internal Medicine Cardiovascular Disease
DX: Z95.2 Presence of prosthetic heart valve (principal); Z79.01 Long term (current) use of anticoagulants; I48.0 Paroxysmal atrial fibrillation; R06.02 Shortness of breath; E78.00 Pure hypercholesterolemia, unspecified; D64.9 Anemia, unspecified; I11.0 Hypertensive heart disease with heart failure; I50.9 Heart failure, unspecified; Z51.81 Encounter for therapeutic drug level monitoring; Z79.899 Other long term (current) drug therapy
CPT/HCPCS: 36415; 71046; 80048; 80061; 80076; 83880; 85025; 85610

== ENCOUNTER 2024-10-31 10:00 | Outpatient (RCR) | payer OTHER, SELFPAY ==
[2024-09-29 11:57] VITALS: BMI 31.9
--- NOTE | 2024-10-28 12:35 | PCM.PR.TP ---
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 Current METSs:: 2.3 Target HR:: 95 Target RPE 12-16:: 12-16 Current RPD:: 12 Maximum Exercise HR:: 108 Resting Blood Pressure: 140/78 Maximum Exercise Blood Pressure: 160/70 Minimum SpO2 with exercise: 91 EKG Type: A fib with LBBB with rare pvcs Nutrition/Wt Mgmt - Initial Visit Session Number:: 17 Weight Management Admit Height:: 5 ft 7 in Admit Weight:: 204 lb Admit BMI:: 31.9 Nutrition/Wt Mgmt - 30-Day Visit Date of Eval: 10/28/24 Session Number:: 17 Weight Management Height: 5 ft 7 in Weight:: 204 lb BMI: 31.9 Nutrition/Wt Mgmt - 60-Day Visit Session Number:: 17 Weight Management Weight Assessment:: WC <35 female Height: 5 ft 7 in Weight:: 204 lb BMI: 31.9 Weight Goals Progress:: Progressing Nutrition/Wt Mgmt - 90-Day Visit Date of Eval: 10/28/24 Session Number:: 17 Weight Management Weight Assessment:: WC <35 female Height: 5 ft 7 in Weight:: 204 lb BMI: 31.9 Weight Goals Progress:: Progressing Nutrition/Wt Mgmt - Final Visit Session Number:: 17 Weight Management Height: 5 ft 7 in Weight:: 204 lb BMI: 31.9 Psychosocial - Initial Assess Visit Session Number:: 17 Problems/Goals History of Emotional Disorders: None Psychosocial Goals: 1. Patient is free from overwhelming symtoms of depression (or anxiety, 2. Identifies personal stressors & states the strategies for managing, 3. Identifies activities to decrease isolation and/or symptoms of, 4. Improved psychosocial coping skills., 5. Verbalizes coping strategies., 6. Adequate treatment of depression. and 7. Improved Q.O.L. Psychosocial Test Tool Used:: PHQ-9 Questionnaire PHQ-9 Score: 9 Referral to Behavioral Health PS - Interventions: Yes: Attend Stress Management Classes Intervention/Plan: See List Interventions/Plan:: Assess stressors,coping strategies & signs of derpression on admission, Instruct/assist pt to develop coping & personal stress Mgt strategies, Refer to Behavioral Health if appropriate, Refer to Physician if appropriate and Instruct patient to recognize signs & symptoms of depression Psychosocial - 30-Day Visit Date of Eval: 10/28/24 Session Number:: 17 Problems/Goals History of Emotional Disorders: None Psychosocial Goals: 1. Patient is free from overwhelming symtoms of depression (or anxiety, 2. Identifies personal stressors & states the strategies for managing, 3. Identifies activities to decrease isolation and/or symptoms of, 4. Improved psychosocial coping skills., 5. Verbalizes coping strategies., 6. Adequate treatment of depression. and 7. Improved Q.O.L. Psychosocial Test Tool Used:: PHQ-9 Questionnaire PHQ-9 Score: 9 Referral to Behavioral Health PS - Interventions: Yes: Attend Stress Management Classes Plan Interventions/Plan:: Assess stressors,coping strategies & signs of derpression on admission, Instruct/assist pt to develop coping & personal stress Mgt strategies, Refer to Behavioral Health if appropriate, Refer to Physician if appropriate and Instruct patient to recognize signs & symptoms of depression Psychosocial - 60-Day Visit Session Number:: 17 Problems/Goals History of Emotional Disorders: None Psychosocial Goals: 1. Patient is free from overwhelming symtoms of depression (or anxiety, 2. Identifies personal stressors & states the strategies for managing, 3. Identifies activities to decrease isolation and/or symptoms of, 4. Improved psychosocial coping skills., 5. Verbalizes coping strategies., 6. Adequate treatment of depression. and 7. Improved Q.O.L. Psychosocial Test Tool Used:: PHQ-9 Questionnaire PHQ-9 Score: 9 Referral to Behavioral Health PS - Interventions: Yes: Attend Stress Management Classes Plan Interventions/Plan:: Assess stressors,coping strategies & signs of derpression on admission, Instruct/assist pt to develop coping & personal stress Mgt strategies, Refer to Behavioral Health if appropriate, Refer to Physician if appropriate and Instruct patient to recognize signs & symptoms of depression Psychosocial - 90-Day Visit Date of Eval: 10/28/24 Session Number:: 17 Problems/Goals History of Emotional Disorders: None Psychosocial Goals: 1. Patient is free from overwhelming symtoms of depression (or anxiety, 2. Identifies personal stressors & states the strategies for managing, 3. Identifies activities to decrease isolation and/or symptoms of, 4. Improved psychosocial coping skills., 5. Verbalizes coping strategies., 6. Adequate treatment of depression. and 7. Improved Q.O.L. Psychosocial Test Tool Used:: PHQ-9 Questionnaire PHQ-9 Score: 9 Referral to Behavioral Health PS - Interventions: Yes: Attend Stress Management Classes Plan Interventions/Plan:: Assess stressors,coping strategies & signs of derpression on admission, Instruct/assist pt to develop coping & personal stress Mgt strategies, Refer to Behavioral Health if appropriate, Refer to Physician if appropriate and Instruct patient to recognize signs & symptoms of depression Psychosocial - Final Assess Visit Session Number:: 17 Problems/Goals History of Emotional Disorders: None Psychosocial Goals: 1. Patient is free from overwhelming symtoms of depression (or anxiety, 2. Identifies personal stressors & states the strategies for managing, 3. Identifies activities to decrease isolation and/or symptoms of, 4. Improved psychosocial coping skills., 5. Verbalizes coping strategies., 6. Adequate treatment of depression. and 7. Improved Q.O.L. Psychosocial Test Tool Used:: PHQ-9 Questionnaire PHQ-9 Score: 9 Referral to Behavioral Health PS - Interventions: Yes: Attend Stress Management Classes Plan Interventions/Plan:: Assess stressors,coping strategies & signs of derpression on admission, Instruct/assist pt to develop coping & personal stress Mgt strategies, Refer to Behavioral Health if appropriate, Refer to Physician if appropriate and Instruct patient to recognize signs & symptoms of depression Oxygen & Oxygen Titration Init Visit Session Number:: 17 Initial Assessment SpO2:: 91 Oxygen & Oxygen Titration 30D Visit Date of Eval: 10/28/24 Session Number:: 17 Reassessment Breath Sounds:: No Audible Breath Sounds SpO2:: 91 Oxygen & Oxygen Titration 60D Visit Date of Eval: 10/28/24 Session Number:: 17 Reassessment Breath Sounds:: No Audible Breath Sounds SpO2:: 91 Oxygen & Oxygen Titration 90D Visit Date of Eval: 10/28/24 Session Number:: 17 Reassessment Oxygen & Oxygen Titration 90 days: Continuous Home Use Breath Sounds:: No Audible Breath Sounds SpO2:: 91 Oxygen & Oxygen Titration JUANJOSE Visit Date of Eval: 10/28/24 Session Number:: 17 Reassessment Breath Sounds:: No Audible Breath Sounds SpO2:: 91 [employer] Components - Initial Visit Session Number:: 17 Hypertension Hypertension Diagnosis:: Hypertension ICD-10 I10 BP: 140/78 [place] [employer] Hypertension Guidelines Blood Pressure: 160/70 Outcomes/Goals: Able to verbalize/achieve optimal blood pressure <130/80 and Incorporates diet changes & exercise for blood pressure control by DC Tobacco - Initial Assessment Tobacco Program Goals Tobacco Use: Non-smoker Diabetes Diabetes:: Yes Hgb A1C: 6.7 Insulin: No BMI:: 31 [employer] - 30 DAYS Visit Date of Eval: 10/28/24 Session Number:: 17 Hypertension Hypertension Diagnosis:: Hypertension ICD-10 I10 Resting Blood Pressure:: 140/78 [place] [employer] Hypertension Guidelines Peak Exercise Blood Pressure:: 160/70 Outcomes/Goals: Able to verbalize/achieve optimal blood pressure <130/80 and Incorporates diet changes & exercise for blood pressure control by DC Interventions/plan: Instruct on optimal blood pressure, hypertension & medications and Instruct on effects of sodium, alcohol, stress, exercise &hypertension 30 day Reassessments:: Progressing Reassessment Notes & Comments:: Pt continues to take antihypertensive meds as prescribed and encouraged to maintain low sodium diet Tobacco - 30-Day Tobacco Program Goals Tobacco Use: Non-smoker Exacerbation Mgmt & Airway Clearance Bronchial Hygiene Plan: Yes: Pt demonstrates correctly for effective cough, Yes: Pt demo correct for CPT, Yes: Pt demo correct for device, Yes: Pt demo correct for NS nasal spray, Yes: Pt demo correct for sputum management, Yes: Pt demo correct for improved hydration, Yes: Pt demo correct for hand hygiene, Yes: Pt demo correct for evalute sputum, Yes: Pt demo correct for verbalize when to call MD and Yes: Pt demo correct for cleaning of respiratory equipment Medication Medication reassessment: Yes: Pt demonstrates correct technique timing for MDI, Yes: Pt demonstrates correct technique timing for DPI, Yes: Pt demonstrates correct technique timing for NEB and Yes: Pt demonstrates correct technique timing for spacer Diabetes Diabetes:: Yes Fasting blood glucose:: 119 Hgb A1C: 6.7 BMI:: 31 Insulin dependent injection/pump?: No Non-Insulin Dependent?: Yes 30-day Reassessments:: Progressing Reassessment Notes & Comments:: Pt encouraged to monitor BS at home and eat a carb controlled diet [employer] - 60 DAYS Visit Session Number:: 17 Hypertension Hypertension Diagnosis:: Hypertension ICD-10 I10 Resting Blood Pressure:: 140/78 [place] [employer] Hypertension Guidelines Peak Exercise Blood Pressure:: 160/70 Outcomes/Goals: Able to verbalize/achieve optimal blood pressure <130/80 and Incorporates diet changes & exercise for blood pressure control by DC Interventions/plan: Instruct on optimal blood pressure, hypertension & medications and Instruct on effects of sodium, alcohol, stress, exercise &hypertension 60 day Reassessments:: Progressing Reassessment Notes & Comments:: Pt continues to take antihypertensive meds as prescribed and encouraged to maintain low sodium diet Tobacco - 60-Day Tobacco Program Goals Tobacco Use: Non-smoker Exacerbation Mgmt & Airway Clearance Bronchial Hygiene Plan: Yes: Pt demonstrates correctly for effective cough, Yes: Pt demo correct for CPT, Yes: Pt demo correct for device, Yes: Pt demo correct for NS nasal spray, Yes: Pt demo correct for sputum management, Yes: Pt demo correct for improved hydration, Yes: Pt demo correct for hand hygiene, Yes: Pt demo correct for evalute sputum, Yes: Pt demo correct for verbalize when to call MD and Yes: Pt demo correct for cleaning of respiratory equipment Medication Medication reassessment: Yes: Pt demonstrates correct technique timing for MDI, Yes: Pt demonstrates correct technique timing for DPI, Yes: Pt demonstrates correct technique timing for NEB and Yes: Pt demonstrates correct technique timing for spacer Diabetes Diabetes:: Yes Fasting blood glucose:: 119 Hgb A1C: 6.7 BMI:: 31 Insulin dependent injection/pump?: No Non-Insulin Dependent?: Yes 60-day Reassessments:: Progressing Reassessment Notes & Comments:: Pt encouraged to monitor BS at home and eat a carb controlled diet [employer] - 90 DAYS Visit Date of Eval: 10/28/24 Session Number:: 17 Hypertension Hypertension Diagnosis:: Hypertension ICD-10 I10 Resting Blood Pressure:: 140/78 [place] [employer] Hypertension Guidelines Peak Exercise Blood Pressure:: 160/70 Outcomes/Goals: Able to verbalize/achieve optimal blood pressure <130/80 and Incorporates diet changes & exercise for blood pressure control by DC Interventions/plan: Instruct on optimal blood pressure, hypertension & medications and Instruct on effects of sodium, alcohol, stress, exercise &hypertension 90 day Reassessments:: Progressing Reassessment Notes & Comments:: Pt continues to take antihypertensive meds as prescribed and encouraged to maintain low sodium diet Tobacco - 90-Day Tobacco Program Goals Tobacco Use: Non-smoker Exacerbation Mgmt & Airway Clearance Reassessment: Demonstrates knowledge of O2 Rx at rest, Demonstrates knowledge of O2 Rx with exercise, Using O2 as prescribed and Has home O2 as prescribed Bronchial Hygiene Plan: Yes: Pt demonstrates correctly for effective cough, Yes: Pt demo correct for CPT, Yes: Pt demo correct for device, Yes: Pt demo correct for NS nasal spray, Yes: Pt demo correct for sputum management, Yes: Pt demo correct for improved hydration, Yes: Pt demo correct for hand hygiene, Yes: Pt demo correct for evalute sputum, Yes: Pt demo correct for verbalize when to call MD and Yes: Pt demo correct for cleaning of respiratory equipment Medication Taking medications 100% of the time:: Met Medication reassessment: Yes: Pt demonstrates correct technique timing for MDI, Yes: Pt demonstrates correct technique timing for DPI, Yes: Pt demonstrates correct technique timing for NEB and Yes: Pt demonstrates correct technique timing for spacer Diabetes Diabetes:: Yes Fasting blood glucose:: 119 Hgb A1C: 6.7 BMI:: 31 Insulin dependent injection/pump?: No Non-Insulin Dependent?: Yes 90-day Reassessments:: Progressing Reassessment Notes & Comments:: Pt encouraged to monitor BS at home and eat a carb controlled diet [employer] - Final Visit Session Number:: 17 Hypertension Hypertension Diagnosis:: Hypertension ICD-10 I10 Resting Blood Pressure:: 140/78 [place] [employer] Hypertension Guidelines Peak Exercise Blood Pressure:: 160/70 Outcomes/Goals: Able to verbalize/achieve optimal blood pressure <130/80 and Incorporates diet changes & exercise for blood pressure control by DC Tobacco - Final Tobacco Program Goals Tobacco Use: Non-smoker Exacerbation Mgmt & Airway Clearance Bronchial Hygiene Plan: Yes: Pt demonstrates correctly for effective cough, Yes: Pt demo correct for CPT, Yes: Pt demo correct for device, Yes: Pt demo correct for NS nasal spray, Yes: Pt demo correct for sputum management, Yes: Pt demo correct for improved hydration, Yes: Pt demo correct for hand hygiene, Yes: Pt demo correct for evalute sputum, Yes: Pt demo correct for verbalize when to call MD and Yes: Pt demo correct for cleaning of respiratory equipment Medication Medication reassessment: Yes: Pt demonstrates correct technique timing for MDI, Yes: Pt demonstrates correct technique timing for DPI, Yes: Pt demonstrates correct technique timing for NEB and Yes: Pt demonstrates correct technique timing for spacer Diabetes Diabetes:: Yes Fasting blood glucose:: 119 Hgb A1C: 6.7 BMI:: 31 Insulin dependent injection/pump?: No Non-Insulin Dependent?: Yes Final Reassessments of Goals:: Progressing Reassessment Notes & Comments:: Pt encouraged to monitor BS at home and eat a carb controlled diet Patient Health Questionnaire PHQ-9 Screening 90-Day Re-eval Assessment: 1. Little interest or pleasure in doing things: Not at all 2. Feeling down, depressed, or hopeless: Not at all 3. Trouble falling or staying asleep, or sleeping too much: More than half the days 4. Feeling tired or having little energy: Nearly every day 5. Poor appetite or overeating: Several days 6. Feeling bad about yourself -- or that you are a failure or have let yourself or your family down: Not at all 7. Trouble concentrating on things, such as reading the newspaper or watching television: Several days 8. Moving or speaking so slowly that other people could have noticed. Or the opposite - being so fidgety or restless that you have been moving around a lot more than usual: Several days 9. Thoughts that you would be better off , or of hurting yourself in some way: Not at all How difficult have these problems made it for you to do your work, take care of things at home, or get along with other people?: Somewhat difficult Total Score: 8 Knowledge Questionaire (BCKQ) Information Information: [place] COPD Knowledge Questionnaire (BCKQ) This questionnaire is designed to find out what you know about your lung problem. It should be completed without help form anyone else. This usually takes between 10 and 20 minutes. Your answers will help us to find out what information you need to help you to understand and manage your lung condition. Francesco the little traverse which you think is the correct answer. Self-Efficacy 6-Item Scale 90-Day Re-eval Assessment: We would like to know how confident you are in doing certain activities. Please select your confidence level for: Fatigue Select Number: 4 Physical Discomfort or Pain Select Number: 8 Emotional Distress Select Number: 9 Other Symptoms or Health Problems Select Number: 4 Different Tasks and Activities Select Number: 4 Medication Select Number: 7 Total Score:: 6 Nutrition Survey Nutrition Survey Instructions Scoring Instructions
[2024-10-28 12:49] VITALS: BP 140/78; BP 160/70; O2SAT 91; BMI 31.0; BMI 31.9
== END 2024-11-03 23:59 ==
LOC: PR 10:00
PROVIDERS: Referring Provider Internal Medicine Pulmonary Disease; Visit Provider Internal Medicine Pulmonary Disease
DX: I27.20 Pulmonary hypertension, unspecified (principal)
CPT/HCPCS: 97150; G0239

== ENCOUNTER 2024-11-04 07:57 | Outpatient (RCR) | payer OTHER, SELFPAY ==
[2024-10-28 12:49] VITALS: BMI 31.9
== END 2024-12-04 23:59 ==
LOC: PR 07:57
PROVIDERS: Referring Provider Internal Medicine Pulmonary Disease; Visit Provider Internal Medicine Pulmonary Disease
DX: I27.20 Pulmonary hypertension, unspecified (principal)
CPT/HCPCS: 97150; G0239

== ENCOUNTER 2024-11-04 10:53 | Emergency (ER) | payer OTHER, SELFPAY ==
[2024-10-28 12:49] VITALS: BMI 31.9
[2024-11-04] VITALS (7 sets, daily range): BP systolic 111–135; BP diastolic 70–85; PULSE 51–89; RESP 16–22; TEMP 36.8–37.1; O2SAT 96–100
--- NOTE | 2024-11-04 11:18 | EKG12_ITS ---
Test Reason : CP Blood Pressure : */* mmHG Vent. Rate : 61 BPM Atrial Rate : * BPM P-R Int : * ms QRS Dur : 140 ms QT Int : 476 ms P-R-T Axes : * -45 146 degrees QTcB Int : 479 ms Atrial fibrillation Left axis deviation Left bundle branch block Abnormal ECG Confirmed by KATRINA ARREOLA, TENNILLE ([id number]), tape editor MIKA COPE ([id number]) on 11/07/2024 6:56:09 AM Referred By: Confirmed By: TENNILLE HERNDON MD
[2024-11-04] MEDS: 0.9% Normal Saline (1000mL) 1,000 ML 999 ML IV (11:27)
[2024-11-04 11:30] LABS: Hematocrit 42.1 % (37-47); Hemoglobin 13.7 g/dL (12.0-15.0); Immature Granulocytes Count 0.040 X10^3/uL (0.0-0.0); Mean Corp Hgb Conc 32.5 g/dL (32-36); Mean Corpuscular Volume 89.4 fL (81-99); Mean Platelet Vol. 10.2 fl (6.2-12.0); NRBC Flagged by Analyzer 0 % (0-5); Platelet Count 267 K/mm3 (150-450); RBC Distribution Width CV 15.8 % (11.6-14.6); RBC Distribution Width SD 51.3 fl (35.1-43.9); Red Blood Count 4.71 M/mm3 (4.2-5.4); White Blood Count 7.8 K/mm3 (4.4-11.0)
--- NOTE | 2024-11-04 11:30 | RAD_ITS ---
PROCEDURE: CHEST PA AND LATERAL 11/04/2024 REASON FOR EXAM: CHEST PAIN TECHNIQUE: CHEST PA AND LATERAL COMPARISON: Chest x-ray 10/04/2024. RAD/Chest PA and Lateral IMPRESSION: The cardiomediastinal silhouette is stable, without evidence of cardiomegaly. Small right pleural effusion appear similar to the prior study. Findings pina rning for Mild Interstitial Pulmonary Edema, somewhat diminished since the prior exam, however. No pneumothorax is seen. No interval osseous change is evident. Reading Location: [place] [id number]
[2024-11-04 11:44] LABS: Prothrombin Time (Protime)PT. 33.5 SECONDS (11.7-14.9)
[2024-11-04 11:45] LABS: Partial Thromboplast Time 44.8 Seconds (24.1-36.2)
[2024-11-04 12:34] LABS: Anion Gap 12 (5-15); BUN 36 mg/dL (4-19); BUN/Creat Ratio 20.2 RATIO (10-20); Calcium,Total 9.6 mg/dL (7.6-11.0); Carbon Dioxide 30.5 mmol/L (21.0-32.0); Chloride 89 mmol/L (98-108); Glucose 129 mg/dL (70-99); Potassium 4.2 mmol/L (3.3-5.1); Pro- Brain NATRIURETIC PEPTIDE 1343 pg/mL (<=900); Troponin T High Sensitivity 21 ng/L (<=14)
--- NOTE | 2024-11-04 13:25 | EX.ED.DYSGE1 ---
HPI History of Present Illness Chief Complaint: Chest Pain Narrative Narrative: Patient is a 64-year-old female with a past medical history of pulmonary hypertension on nasal cannula chronically, heart failure, status post valve replacement on warfarin, ROYA, hypertension who presents to the emergency department with a chief complaint of chest pain. Patient states that this morning around 5:30 AM she noted that she developed chest pressure and pain that was radiating across her chest states that she was not doing thing specifically when this occurred. She states that this feels similar to when her lungs started to fill up with fluid and notes that she has had to have fluid taken off her lungs in the past. Patient states that yesterday she was feeling her normal self. [facility] Medical History Anemia Hypokalemia Near syncope Abnormal biliary HIDA scan COVID-19 (03/15/24) Cutaneous abscess Wears glasses Wears dentures On home oxygen therapy Cancer Anxiety Hypertension CPAP (continuous positive airway pressure) dependence Positive GBS test Endometrial cancer Secondary pulmonary arterial hypertension Nonrheumatic aortic (valve) stenosis with insufficiency Congenital subaortic stenosis of membranous type Essential (primary) hypertension Narcolepsy Allergic rhinitis Obesity Streptococcal septicemia History of bacterial endocarditis Nonrheumatic mitral valve insufficiency Chronic diastolic (congestive) heart failure Left bundle branch block Asthma HLD (hyperlipidemia) Subvalvar aortic stenosis Obstructive sleep apnea Psoriasis Morbid obesity Home Medications ?Medication ?Instructions ?Recorded ?Last Taken ?Type multivitamin with folic acid 400 1 tab PO DAILY SUPPLEMETN 05/30/16 08/11/24 23:00 History mcg tablet 1 TAB melatonin 5 mg capsule 5 mg PO QHS SLEEP 05/21/20 08/11/24 23:00 History 5 mg duloxetine 60 mg capsule,delayed 120 mg PO DAILY Depression 11/08/20 08/12/24 08:00 History release (Cymbalta) 120 mg clobetasol 0.05 % topical cream 1 applic topical BID PRN skin 11/05/22 02/01/24 History irritation albuterol sulfate 90 mcg/actuation 2 puff inhalation Q4H PRN 01/14/23 05/20/24 Rx aerosol inhaler (Ventolin HFA) shortness of breath or wheezing #8.5 grams budesonide-formoterol HFA 160 2 puff inhalation BID Wheezing/SOB 01/14/23 05/22/24 Rx mcg-4.5 mcg/actuation aerosol #10.2 grams inhaler (Symbicort) loratadine 10 mg tablet 10 mg PO DAILY ALLERGIES #90 tabs 01/14/23 05/22/24 Rx PEP device #1 ea 05/05/23 Unknown Rx acetaminophen 500 mg tablet 1,000 mg PO DAILY PRN pain 09/08/23 05/23/24 10:02 History (Tylenol Extra Strength) gabapentin 300 mg capsule 300 mg PO BID Neuropathy 09/08/23 08/12/24 08:00 History 300 mg azelastine 137 mcg (0.1 %) nasal 2 spray intranasal BID asthma #30 11/11/23 05/22/24 Rx spray mL semaglutide 0.25 mg or 0.5 mg (2 0.5 mg subcut QWEEK DM2 12/15/23 08/05/24 08:00 History mg/3 mL) subcutaneous pen injector 0.5 mg (Ozempic) warfarin 5 mg tablet 5 mg PO .COMPLEX blood thinner 02/03/24 08/11/24 23:00 Rx #180 tabs 5 mg Farxiga 10 mg tablet 10 mg PO QDAY Diabetes #90 tabs 04/26/24 08/12/24 08:00 Rx (dapagliflozin propanediol) 10 mg Handicap Placard #1 ea 05/09/24 Unknown Rx senna-docusate sodium tablet 2 tab PO DAILY Constipation 05/23/24 05/23/24 History acetylcysteine 600 mg capsule (NAC) 600 mg PO BID Priuritus 06/13/24 08/12/24 08:00 History 600 mg omeprazole 40 mg capsule,delayed 40 mg PO QDAY GERD 06/13/24 08/12/24 08:00 History release 40 mg magnesium oxide 400 mg PO QDAY Supplement 06/14/24 08/11/24 23:00 History 400 mg ipratropium 0.5 mg-albuterol 3 mg 3 ml inhalation Q4H PRN PRN SOB 06/15/24 Unknown Rx (2.5 mg base)/3 mL nebulization &/OR WHEEZING #180 mL soln famotidine 20 mg tablet 20 mg PO BID #10 TABLETS 08/07/24 08/11/24 23:00 Rx 20 mg ondansetron 4 mg disintegrating 4 mg PO Q6H PRN PRN Nausea #15 tabs 08/07/24 08/11/24 23:00 Rx tablet 4 mg torsemide 20 mg tablet 40 mg PO BID diuretic 08/12/24 08/12/24 08:00 History 40 mg spironolactone 100 mg tablet 100 mg PO DAILY #180 tabs 08/15/24 Unknown Rx potassium chloride 10 mEq 10 meq PO DAILY #90 caps 08/23/24 Unknown Rx capsule,extended release metoprolol tartrate 25 mg tablet 25 mg PO BID HEART #180 tabs 09/05/24 Unknown Rx Allergy/AdvReac Type Severity Reaction Status Date / Time clarithromycin (From Biaxin) Allergy Severe SOB, hives Verified 11/04/24 10:54 and swelling cephalexin (Cephalexin) Allergy Rash Verified 11/04/24 10:54 simvastatin Allergy Rash Verified 11/04/24 10:54 sulfamethoxazole Allergy Rash Verified 11/04/24 10:54 trimethoprim Allergy Rash/leg Verified 11/04/24 10:54 swelling bupropion AdvReac Severe worsened Verified 11/04/24 10:54 depression adhesive tape AdvReac Itching Verified 11/04/24 10:54 ciprofloxacin AdvReac Itching Verified 11/04/24 10:54 Macrolide Antibiotics AdvReac Unknown Verified 11/04/24 10:54 Penicillins AdvReac Unknown Verified 11/04/24 10:54 Family History Father CAD (coronary artery disease) Hypertension Mother , age 55 Sudden cardiac Hypertension Abdominal aortic aneurysm rupture Brother Hypertension Sister Hypertension Surgical History History of right heart catheterization (02/19/24) H/O bilateral salpingo-oophorectomy (01/2020) History of robot-assisted laparoscopic hysterectomy (01/2020) Resection of subaortic membrane (2002) History of tubal ligation HX venous access device placed History of mechanical aortic valve replacement (05/13/16) History of mitral valve replacement with mechanical valve (05/13/16) Social History household members: spouse number of children: 4 current occupational status: unemployed history of recent travel: No sexually active: Yes Smoking Status: Never smoker alcohol intake: never substance use type: does not use diet: low carbohydrate caffeine: No what type of physical activity do you participate in: walking seatbelt use: always do you feel safe at home: Yes additional social history: - Dylan DAIGLE ROS ED ROS Narrative Constitutional: Denies any fevers, chills, headaches Eyes: Denies double vision Cardiovascular: Complains of chest pressure as noted above denies palpitations Respiratory: Denies coughing wheezing shortness of breath Abdomen: Denies abdominal pain nausea vomit diarrhea : Denies any urinary symptoms Neurological: Denies any numbness, wheeze, tingling Musculoskeletal: Denies back pain Skin: Denies any rashes or lesions EXAM Physical Exam Narrative Exam Narrative: General: Patient lying in bed rest comfortably did not appear to be in acute distress Head: Atraumatic, normocephalic Eyes: PERRL bilaterally, EOMI by, no conjunctival injection noted Neck: Soft, supple, trachea midline Cardiovascular: Regular rate and rhythm Respiratory: Clear to auscultation bilaterally Abdomen: Soft, nondistended, no tenderness palpation Extremities: +4/5 strength noted in the bilateral upper and lower extremities Neurological: Patient follow commands knew she was at [facility] years 2024 Skin: Warm, dry, tact no rashes or lesions noted Const Vital Signs: 11/04/24 10:54 11/04/24 11:22 11/04/24 11:54 Temperature 98.8 F Temperature Source Oral Pulse Rate 63 53 L Respiratory Rate 22 H 18 Blood Pressure 135/85 H 132/70 H Blood Pressure Mean 101 90 Pulse Ox 100 99 Oxygen Delivery Method Nasal Cannula Room Air Oxygen Flow Rate (L/min) 3 11/04/24 12:00 11/04/24 13:00 11/04/24 14:00 Temperature Temperature Source Pulse Rate 58 L 51 L 89 Respiratory Rate 16 17 Blood Pressure 132/70 H 111/74 Blood Pressure Mean 90 86 Pulse Ox 98 99 Oxygen Delivery Method Oxygen Flow Rate (L/min) 11/04/24 14:54 Temperature 98.3 F Temperature Source Pulse Rate 89 Respiratory Rate 18 Blood Pressure 111/74 Blood Pressure Mean 86 Pulse Ox 99 Oxygen Delivery Method Oxygen Flow Rate (L/min) MDM MDM MDM Narrative Medical decision making narrative: Patient is a 64-year-old female who presented to the emergency department the chief complaint of chest pressure. On the differential diagnose includes but limited to ACS, pneumonia, pneumothorax, pleural effusion, CHF. Once workup is obtained reviewed she will be reevaluated. Patient CBC reviewed showed no evidence leukocytosis white blood count was normal at 7.8, hemoglobin stable 13.7, plate count 267. Patient INR was 3.2, PT of 33.5 she is chronically anticoagulated on warfarin. Patient sodium was 132, potassium normal at 4.2, creatinine was 1.77 she has underlying chronic kidney disease this is roughly around her baseline. Patient troponin is 21 with a delta of 19, proBNP elevated 1343. Patient's EKG was reviewed and showed atrial fibrillation for which she has a history with a controlled rate of 61 bpm with evidence of left bundle branch block no Sgarbossa criteria were met patient chest x-ray reviewed by myself and by radiology which showed a small right pleural effusion which appears similar to prior studies. Concern for mild interstitial pulmonary edema somewhat diminished since the prior exam however. No pneumothorax was noted. Cardiomediastinal silhouette is stable without evidence of cardiomegaly. Patient ambulated here in the emergency department tolerated this well with no hypoxia no tachycardia at her baseline oxygen requirements. Discussed results with the patient she would like to go home at this point in time. Given that her chest pain started at 5:30 AM this morning and nothing made this better or worse do have low suspicion for cardiac etiology at this point time. Patient was advised to return with worsening symptoms or other concerns. She is agreeable to plan all question concerns answered she was discharged home in stable condition. Lab Data Labs: Laboratory Results - last 24 hr 11/04/24 11/04/24 11:14 13:09 WBC 7.8 RBC 4.71 Hgb 13.7 Hct 42.1 MCV 89.4 MCH 29.1 MCHC 32.5 RDW Std Deviation 51.3 H RDW Coeff of Ham 15.8 H Plt Count 267 MPV 10.2 Immature Gran % (Auto) 0.500 Neut % (Auto) 61.2 Lymph % (Auto) 20.1 [place] % (Auto) 15.4 H Eos % (Auto) 2.3 Baso % (Auto) 0.5 Absolute Neuts (auto) 4.8 Absolute Lymphs (auto) 1.57 Nucleated RBC % 0 PT 33.5 H INR 3.2 APTT 44.8 H Sodium 132 L Potassium 4.2 Chloride 89 L Carbon Dioxide 30.5 Anion Gap 12 BUN 36 H Creatinine 1.77 H Est GFR (MDRD) Non-Af 32 L BUN/Creatinine Ratio 20.2 H Glucose 129 H Calcium 9.6 Troponin T High Sens 21 H D Troponin T Hi Sens 2 Hr 19 H NT pro BNP II 1343 H Radiography Diagnostic Testing: Clinical Impression(s) from Imaging Studies Chest X-Ray 11/04/24 11:30 IMPRESSION: The cardiomediastinal silhouette is stable, without evidence of cardiomegaly. Small right pleural effusion appear similar to the prior study. Findings concerning for Mild Interstitial Pulmonary Edema, somewhat diminished since the prior exam, however. No pneumothorax is seen. No interval osseous change is evident. Reading Location: [place] [id number] Discharge Plan Triage Chief Complaint: Chest Pain ED Provider: Julián Driver Dx/Rx/DC Orders Clinical Impression: Chest pain, Pulmonary hypertension, Pleural effusion on right, Left bundle branch block, Chronic diastolic (congestive) heart failure Prescriptions: No Action duloxetine [Cymbalta] 60 mg capsule,delayed release(DR/EC) 120 mg PO DAILY acetaminophen [Tylenol Extra Strength] 500 mg tablet 1,000 mg PO DAILY PRN (Reason: pain) albuterol sulfate [Ventolin HFA] 90 mcg/actuation HFA aerosol inhaler 2 puff INHALATION Q4H PRN (Reason: shortness of breath or wheezing) Qty: 8.5 6RF budesonide-formoterol [Symbicort] 160-4.5 mcg/actuation HFA aerosol inhaler 2 puff inhalation BID Qty: 10.2 6RF loratadine 10 mg tablet 10 mg PO DAILY Qty: 90 3RF clobetasol 0.05 % cream 1 applic topical BID PRN (Reason: skin irritation) (DME) PEP device See Rx Instructions .ROUTE .MEDSUPPLY Qty: 1 0RF Rx Instructions: with training Ozempic 0.25 mg or 0.5 mg (2 mg/3 mL) pen injector 0.5 mg subcut QWEEK gabapentin 300 mg capsule 300 mg PO BID dapagliflozin propanediol [Farxiga] 10 mg tablet 10 mg PO QDAY Qty: 90 3RF acetylcysteine [NAC] 600 mg capsule 600 mg PO BID ipratropium-albuterol 0.5 mg-3 mg(2.5 mg base)/3 mL solution for nebulization 3 ml inhalation Q4H PRN PRN (Reason: SOB &/OR WHEEZING) Qty: 180 6RF multivitamin with folic acid 1 TABLET tablet 1 tab PO DAILY melatonin 5 MG capsule 5 mg PO QHS omeprazole 40 mg capsule,delayed release(DR/EC) 40 mg PO QDAY senna-docusate sodium Tablet 2 tab PO DAILY famotidine 20 mg tablet 20 mg PO BID Qty: 10 0RF ondansetron 4 mg tablet,disintegrating 4 mg PO Q6H PRN PRN (Reason: Nausea) Qty: 15 0RF torsemide 20 mg tablet 40 mg PO BID azelastine 137 mcg (0.1 %) spray,non-aerosol 2 spray intranasal BID Qty: 30 3RF Rx Instructions: administer into each nostril warfarin 5 mg tablet 5 mg PO .COMPLEX Qty: 180 3RF Protocol: Dose Management Condition: Thursday Dose/Route: 5 mg Instruction: 1 x 5 mg tablet Condition: Thursday Dose/Route: 5 mg Instruction: 1 x 5 mg tablet Condition: Thursday Dose/Route: 2.5 mg Instruction: 0.5 x 5 mg tablets Condition: Thursday Dose/Route: 2.5 mg Instruction: 0.5 x 5 mg tablets Condition: Dose/Route: 5 mg Instruction: 1 x 5 mg tablet Condition: Thursday Dose/Route: 5 mg Instruction: 1 x 5 mg tablet Condition: Thursday Dose/Route: 5 mg Instruction: 1 x 5 mg tablet Protocol Text: Adjustment Start Date: Thursday10/24/24 INR Value: 2.7 INR Date: 10/24/24 Recheck Date: 11/14/24 Rx Instructions: 5 mg orally daily: please give extra pills for dose changes, dose changes often; (DME) Handicap Placard See Rx Instructions .Route .MEDSUPPLY Qty: 1 0RF Rx Instructions: Good from 03/09/2024-03/09/2029 magnesium oxide 400 mg magnesium tablet 400 mg PO QDAY spironolactone 100 mg tablet 100 mg PO DAILY Qty: 180 3RF Rx Instructions: Hold for serum potassium more than 5.0 potassium chloride 10 mEq capsule, extended release 10 meq PO DAILY Qty: 90 3RF metoprolol tartrate 25 mg tablet 25 mg PO BID Qty: 180 3RF Primary Care Provider: Shantell Newton Referrals: Shantell Newton, [employer] [Primary Care Provider] - Activity Restrictions/Additional Instructions: Follow-up your doctor in outpatient setting. Have a stress test obtained in the outpatient setting. Return with worsening symptoms or any other concerns. Your blood work did not show any acute findings today. Your chest x-ray did not show any acute findings. Print Language: Polish Disposition Disposition: Home, Self Care
[2024-11-04 14:02] LABS: Troponin T High Sens 2 HR 19 ng/L (<=14)
== END 2024-11-04 15:34 | disposition home or self-care (01) ==
PROVIDERS: Emergency Provider Emergency Medicine; Visit Provider Emergency Medicine
DX: R07.9 Chest pain, unspecified (principal); I13.0 Hypertensive heart and chronic kidney disease with heart failure and stage 1 through stage 4 chronic kidney disease, or unspecified chronic kidney disease; I27.20 Pulmonary hypertension, unspecified; I50.32 Chronic diastolic (congestive) heart failure; J90 Pleural effusion, not elsewhere classified; N18.9 Chronic kidney disease, unspecified; G47.33 Obstructive sleep apnea (adult) (pediatric); J45.909 Unspecified asthma, uncomplicated; I44.7 Left bundle-branch block, unspecified; Z79.01 Long term (current) use of anticoagulants; E78.5 Hyperlipidemia, unspecified; Z95.5 Presence of coronary angioplasty implant and graft; Z99.89 Dependence on other enabling machines and devices; Z85.89 Personal history of malignant neoplasm of other organs and systems; F41.9 Anxiety disorder, unspecified; Z79.899 Other long term (current) drug therapy; Z90.722 Acquired absence of ovaries, bilateral; Z90.710 Acquired absence of both cervix and uterus; Z98.51 Tubal ligation status; Z79.51 Long term (current) use of inhaled steroids
CPT/HCPCS: 71046; 80048; 83880; 84484; 85025; 85610; 85730; 93005; 96360; 96361; 99283; A4216

== ENCOUNTER 2024-12-01 06:10 | Outpatient (RCR) | payer OTHER, SELFPAY ==
[2024-10-28 12:49] VITALS: BMI 31.9
[2024-12-01 07:02] LABS: Prothrombin Time (Protime)PT. 28.1 SECONDS (11.7-14.9)
== END 2024-12-01 18:00 | disposition home or self-care (01) ==
LOC: LAB 06:10
PROVIDERS: Referring Provider Internal Medicine Cardiovascular Disease; Visit Provider Internal Medicine Cardiovascular Disease
DX: Z79.01 Long term (current) use of anticoagulants; I48.0 Paroxysmal atrial fibrillation; Z95.2 Presence of prosthetic heart valve
CPT/HCPCS: 36415; 85610

== ENCOUNTER 2025-01-04 11:44 | Outpatient (RCR) | payer OTHER, SELFPAY ==
[2024-10-28 12:49] VITALS: BMI 31.9
[2025-01-04 16:53] LABS: Hematocrit 43.3 % (37-47); Hemoglobin 14.4 g/dL (12.0-15.0); Immature Granulocytes Count 0.030 X10^3/uL (0.0-0.0); Mean Corp Hgb Conc 33.3 g/dL (32-36); Mean Corpuscular Volume 93.1 fL (81-99); Mean Platelet Vol. 10.7 fl (6.2-12.0); NRBC Flagged by Analyzer 0 % (0-5); Platelet Count 283 K/mm3 (150-450); RBC Distribution Width CV 13.6 % (11.6-14.6); RBC Distribution Width SD 46.2 fl (35.1-43.9); Red Blood Count 4.65 M/mm3 (4.2-5.4); White Blood Count 6.4 K/mm3 (4.4-11.0)
[2025-01-04 17:15] LABS: Prothrombin Time (Protime)PT. 17.8 SECONDS (11.7-14.9)
[2025-01-04 17:41] LABS: AST(SGOT) 29 U/L (<=31); Alanine Aminotransfer ALT/SGPT 17 U/L (<=34); Albumin, Serum 4.0 g/dL (3.4-4.8); Alkaline Phosphatase 71 U/L (35-104); Anion Gap 12 (5-15); BUN 39 mg/dL (4-19); BUN/Creat Ratio 25.8 RATIO (10-20); Calcium,Total 9.3 mg/dL (7.6-11.0); Carbon Dioxide 29.4 mmol/L (21.0-32.0); Chloride 92 mmol/L (98-108); Cholesterol 177 mg/dL (<=200); Globulin 4.0 g/dL (2.2-4.2); Glucose 107 mg/dL (70-99); Low Density Lipoprotein Calc. 101 mg/dL; Magnesium 2.6 mg/dL (1.5-2.2); Potassium 4.0 mmol/L (3.3-5.1); Triglycerides 171 mg/dL; Very Low Density Lipoprotein 34 mg/dL (5-40); cholesterol:hdl ratio screen 4.24
[2025-01-04 21:29] LABS: Microalbumin,Random Urine 12.0 mg/L (<20 mg/L)
[2025-01-12 18:40] LABS: Prothrombin Time (Protime)PT. 24.7 SECONDS (11.7-14.9)
== END 2025-02-03 23:59 ==
LOC: VSLAB 11:44
PROVIDERS: Visit Provider Internal Medicine Cardiovascular Disease
DX: R25.2 Cramp and spasm; E11.65 Type 2 diabetes mellitus with hyperglycemia; I48.0 Paroxysmal atrial fibrillation; Z79.01 Long term (current) use of anticoagulants
CPT/HCPCS: 36415; 80053; 80061; 82043; 83735; 84443; 85025; 85610

== ENCOUNTER 2025-01-12 11:04 | Outpatient (RCR) | payer OTHER, SELFPAY ==
[2024-10-28 12:49] VITALS: BMI 31.9
== END 2025-02-03 23:59 ==
LOC: VSLAB 11:04
PROVIDERS: Visit Provider Internal Medicine Cardiovascular Disease
DX: Z00.00 Encounter for general adult medical examination without abnormal findings (principal)

== ENCOUNTER 2025-02-28 14:37 | Outpatient (RCR) | payer OTHER, SELFPAY ==
[2024-10-28 12:49] VITALS: BMI 31.9
[2025-02-16 10:14] LABS: Prothrombin Time (Protime)PT. 31.0 SECONDS (11.7-14.9)
[2025-02-16 11:00] LABS: Anion Gap 12 (5-15); BUN 42 mg/dL (4-19); BUN/Creat Ratio 27.5 RATIO (10-20); Calcium,Total 9.6 mg/dL (7.6-11.0); Carbon Dioxide 30.3 mmol/L (21.0-32.0); Chloride 93 mmol/L (98-108); Glucose 95 mg/dL (70-99); Magnesium 2.6 mg/dL (1.5-2.2); Potassium 4.0 mmol/L (3.3-5.1)
[2025-02-16 11:25] LABS: AST(SGOT) 28 U/L (<=31); Alanine Aminotransfer ALT/SGPT 16 U/L (<=34); Albumin, Serum 4.1 g/dL (3.4-4.8); Alkaline Phosphatase 67 U/L (35-104); Bilirubin, Direct 0.25 mg/dL (0.00-0.30); Globulin 3.8 g/dL (2.2-4.2)
[2025-02-28 15:10] LABS: Prothrombin Time (Protime)PT. 29.9 SECONDS (11.7-14.9)
== END 2025-03-04 18:00 | disposition home or self-care (01) ==
LOC: LAB 14:37
PROVIDERS: Student in an Organized Health Care Education/Training Program; Referring Provider Nurse Practitioner Family; Visit Provider Internal Medicine Cardiovascular Disease
DX: R25.2 Cramp and spasm (principal); E11.65 Type 2 diabetes mellitus with hyperglycemia; I48.0 Paroxysmal atrial fibrillation; Z79.01 Long term (current) use of anticoagulants; E78.00 Pure hypercholesterolemia, unspecified; I27.20 Pulmonary hypertension, unspecified; Q24.4 Congenital subaortic stenosis; I44.7 Left bundle-branch block, unspecified; I50.32 Chronic diastolic (congestive) heart failure; Z95.2 Presence of prosthetic heart valve
CPT/HCPCS: 36415; 80048; 80076; 83036; 83735; 85610

== ENCOUNTER 2025-04-03 14:19 | Outpatient (RCR) | payer OTHER, SELFPAY ==
[2024-10-28 12:49] VITALS: BMI 31.9
[2025-03-14 10:15] LABS: Prothrombin Time (Protime)PT. 29.1 SECONDS (11.7-14.9)
[2025-03-14 10:51] LABS: Hematocrit 39.3 % (37-47); Hemoglobin 13.1 g/dL (12.0-15.0); Immature Granulocytes Count 0.030 X10^3/uL (0.0-0.0); Mean Corp Hgb Conc 33.3 g/dL (32-36); Mean Corpuscular Volume 93.3 fL (81-99); Mean Platelet Vol. 10.6 fl (6.2-12.0); NRBC Flagged by Analyzer 0 % (0-5); Platelet Count 238 K/mm3 (150-450); RBC Distribution Width CV 13.3 % (11.6-14.6); RBC Distribution Width SD 45.5 fl (35.1-43.9); Red Blood Count 4.21 M/mm3 (4.2-5.4); White Blood Count 7.4 K/mm3 (4.4-11.0)
[2025-03-14 11:05] LABS: AST(SGOT) 30 U/L (<=31); Alanine Aminotransfer ALT/SGPT 15 U/L (<=34); Albumin, Serum 4.1 g/dL (3.4-4.8); Alkaline Phosphatase 67 U/L (35-104); Anion Gap 10 (5-15); BUN 42 mg/dL (4-19); BUN/Creat Ratio 28.3 RATIO (10-20); Calcium,Total 9.2 mg/dL (7.6-11.0); Carbon Dioxide 31.7 mmol/L (21.0-32.0); Chloride 94 mmol/L (98-108); Globulin 3.7 g/dL (2.2-4.2); Glucose 76 mg/dL (70-99); Potassium 4.0 mmol/L (3.3-5.1); Pro- Brain NATRIURETIC PEPTIDE 1801 pg/mL (<=900)
[2025-03-14 13:03] LABS: Magnesium 2.2 mg/dL (1.5-2.2)
[2025-04-03 15:15] LABS: Prothrombin Time (Protime)PT. 22.7 SECONDS (11.7-14.9)
== END 2025-04-03 18:00 | disposition home or self-care (01) ==
LOC: LAB 14:19
PROVIDERS: Nurse Practitioner Family; Student in an Organized Health Care Education/Training Program; Referring Provider Internal Medicine Cardiovascular Disease; Visit Provider Internal Medicine Cardiovascular Disease
DX: E83.41 Hypermagnesemia (principal); Z95.2 Presence of prosthetic heart valve; I48.0 Paroxysmal atrial fibrillation; Z79.01 Long term (current) use of anticoagulants; R63.5 Abnormal weight gain; R06.02 Shortness of breath; I50.32 Chronic diastolic (congestive) heart failure
CPT/HCPCS: 36415; 80053; 83735; 83880; 85025; 85610